=== PATIENT | female | born 1995 | race Caucasian/White ===

== ENCOUNTER → 2018-07-19 | Outpatient (CLI) | payer OTHER ==
[2018-07-19 19:46] LABS: T4, Free (Free Thyroxine) 1.1 ng/dL (0.80-1.80)
== END | disposition home or self-care (01) ==
LOC: LABWHC1 11:58
PROVIDERS: ATTEND Internal Medicine
DX: N92.0 Excessive and frequent menstruation with regular cycle (principal)
CPT/HCPCS: 36415; 82672; 82947; 83001; 83002; 84144; 84439; 84443; 84481

== ENCOUNTER → 2018-07-27 | Outpatient (CLI) | payer OTHER ==
--- NOTE | 2018-07-27 08:03 | US ---
EXAMINATION TYPE: US transvaginal DATE OF EXAM: 07/27/2018 COMPARISON: NONE CLINICAL HISTORY: N92.0 Heavy Periods. Patient stated has heavy menstrual cycles with long durations x 3 to 4 years. LMP unknown, but just ceased few days ago; TECHNIQUE: Transvaginal (TV) as bladder was not full and patient chose to have TV US for better asse ssment of endometrium. Date of LMP: unknown EXAM MEASUREMENTS: Uterus: 7.2 x 5.0 x 3.8 cm Endometrial Stripe: 0.9 cm Right Ovary: 4.0 x 2.1 x 2.1 cm Left Ovary: 1.7 x 1.9 x 2.8 cm 1. Uterus: Retroverted; multiple Nabothian Cysts in cervix with largest = 1.2 x 1.2 x 1.6cm 2. Endometrium: unable to correlate thickness with unknown LMP, however, swirling inner endometrial contents are observed during TV US 3. Right Ovary: multiple small follicles; color flow is seen in bilateral ovaries 4. Left Ovary: multiple small follicles 5. Bilateral Adnexa: wnl 6. Posterior cul-de-sac: wnl IMPRESSION: 1. Cervical nabothian cysts. 2. Small ovarian follicles.
== END | disposition home or self-care (01) ==
LOC: RADUSWWP 06:54
PROVIDERS: ATTEND Internal Medicine
DX: N88.8 Other specified noninflammatory disorders of cervix uteri (principal)
CPT/HCPCS: 76830

== ENCOUNTER → 2018-08-05 | Outpatient (CLI) | payer OTHER ==
--- NOTE | 2018-08-06 20:52 | MR ---
EXAMINATION TYPE: MR lumbar spine wo con DATE OF EXAM: 08/05/2018 COMPARISON: 12/11/2014 HISTORY: 23-year-old female Low back pain shooting into rajiv legs TECHNIQUE: Multiplanar, multisequence images of the lumbar spine were acquired. Findings: Interval development of degenerative disc disease at L5-S1 characterized by moderate disc desiccation and disc bulging with posterior annular fissure. Mild facet arthropathy lower lumbar spine. Vertebral body heights are preserved and alignment is maintained. Fatty matrix hemangioma within L2 vertebral body. No suspicious bone marrow placement. Conus medullaris is normal. No prevertebral or paravertebral soft tissue abnormality. From T12 through L4 levels, no spinal canal or foraminal stenosis. At L4-L5, mild facet degenerative change without spinal canal neuroforaminal stenosis. At L5-S1, new posterior broad-based disc protrusion with posterior annular fissure. There is mild fac et degenerative change. No significant spinal canal or foraminal stenosis. IMPRESSION: 1. New moderate degenerative disc disease at L5-S1 characterized by disc desiccation, broad-based pos terior disc protrusion, and posterior annular fissure. 2. Mild facet arthropathy lower lumbar spine. 3. Changes do not contribute to any significant spinal canal or neural foraminal stenosis.
== END | disposition home or self-care (01) ==
LOC: RADMRIMAIN 09:46
PROVIDERS: ATTEND Internal Medicine
DX: M99.73 Connective tissue and disc stenosis of intervertebral foramina of lumbar region (principal); M51.26 Other intervertebral disc displacement, lumbar region; M51.37 Other intervertebral disc degeneration, lumbosacral region; M46.96 Unspecified inflammatory spondylopathy, lumbar region
CPT/HCPCS: 72148

== ENCOUNTER → 2018-12-29 | Outpatient (CLI) | payer OTHER ==
[2018-12-29 23:44] LABS: Potassium 4.1 mmol/L (3.5-5.5)
[2018-12-30 00:12] LABS: Iron Saturation 5.14 (12.00-45.00)
== END | disposition home or self-care (01) ==
LOC: LABWHC1 16:28
PROVIDERS: ATTEND Dermatology
DX: L73.2 Hidradenitis suppurativa (principal); L70.8 Other acne
CPT/HCPCS: 36415; 82565; 82728; 83540; 83550; 84132; 84520

== ENCOUNTER → 2019-01-01 | Outpatient (CLI) | payer OTHER ==
[2019-01-01 21:14] LABS: Hemoglobin A1C 5.3 % (4.0-6.0)
== END ==
LOC: LABWHC1 12:38
PROVIDERS: ATTEND Dermatology Procedural Dermatology
DX: L83 Acanthosis nigricans (principal); L73.2 Hidradenitis suppurativa
CPT/HCPCS: 36415; 83036

== ENCOUNTER 2019-06-13 17:06 | Emergency (ER) | payer OTHER ==
[2019-06-13] MEDS ORDERED: KETOROLAC 30 MG/ML 1 ML VIAL IVP STA (18:15)
[2019-06-13] MEDS ORDERED: LORazepam 1 MG TAB PO STA (18:16)
--- NOTE | 2019-06-13 18:21 | XR ---
EXAMINATION TYPE: XR chest 2V DATE OF EXAM: 06/13/2019 COMPARISON: NONE HISTORY: Right-sided chest pain TECHNIQUE: Frontal and lateral views of the chest are obtained. FINDINGS: Heart and mediastinum are normal. Lungs are clear. Diaphragm is normal. Bony thorax appear s normal. IMPRESSION: Normal chest.
[2019-06-13 18:36] LABS: Anisocytosis Slight; Basophils # (A) 0.1 k/uL (0-0.2); Basophils % (A) 0 %; Eosinophils # (A) 0.1 k/uL (0-0.7); Eosinophils % (A) 1 %; Hypochromasia Slight; Lymphocytes # (A) 2.1 k/uL (1.0-4.8); Lymphocytes % (A) 18 %; MCH 21.7 pg (25.0-35.0); MCHC 30.8 g/dL (31.0-37.0); MCV 70.4 fL (80.0-100.0); Mean Platelet Volume 7.2; Microcytosis Marked; Monocytes # (A) 0.6 k/uL (0-1.0); Monocytes % (A) 5 %; Neutrophils # (A) 8.7 k/uL (1.3-7.7); Neutrophils % (A) 74 %; Platelet Count 326 k/uL (150-450); RBC 5.55 m/uL (3.80-5.40); RDW 16.8 % (11.5-15.5); WBC 11.8 k/uL (3.8-10.6)
[2019-06-13 18:45] LABS: ALT 23 U/L (9-52); AST 21 U/L (14-36); African American GFR (CKD) >90 (>60 ml/min/1.73 sqM); Albumin 5.2 g/dL (3.5-5.0); Alkaline Phosphatase 84 U/L (38-126); Anion Gap 13 mmol/L; Blood Urea Nitrogen 13 mg/dL (7-17); Calcium 10.6 mg/dL (8.4-10.2); Carbon Dioxide 23 mmol/L (22-30); Chloride 106 mmol/L (98-107); Glucose 81 mg/dL (74-99); Potassium 4.5 mmol/L (3.5-5.1); Sodium 142 mmol/L (137-145); Total Bilirubin 0.4 mg/dL (0.2-1.3); Total Protein 9.1 g/dL (6.3-8.2)
[2019-06-13 18:53] LABS: D-Dimer 0.44 mg/L FEU (<0.60); INR 0.9 (<1.2); Partial Thromboplastin Time 24.9 sec (22.0-30.0); Prothrombin Time 9.5 sec (9.0-12.0)
--- NOTE | 2019-06-13 19:05 | ED ---
SOB HPI - General Chief Complaint: Shortness of Breath Stated Complaint: ATIF Source: patient Mode of arrival: ambulatory Limitations: no limitations - History of Present Illness Initial Comments: 24-year-old female presenting for difficulty breathing. No significant past medical history. Patient states that she has had shortness of breath the past 4 days and pain with inspiration. She states the pain is all over however most constant over the left side of her chest. Describes as sharp in nature without radiation. Patient denies abdominal pain nausea vomiting. Admits to cough she states usually gets bronchitis around this time. Denies fever. Patient denies hemoptysis leg swelling history of DVT pulmonary embolism familial clotting disorders or personal history patient denies any unilateral calf pain recent travel recent surgeries recent fractures denies any exogenous hormone use. No history of sudden at a young age within family. No premature CAD with the family per patient. Patient denies any pain in absence of respiration. Denies any chest pressure arm pain. Patient denies . Remaining review of system negative. Upon arrival patient appears uncomfortable but in no distress. Vital signs stable. - Related Data Previous Rx's Medication Instructions Recorded Cephalexin [Keflex] 500 mg PO Q6HR #40 cap 01/22/19 Sulfamethox-Tmp 800-160Mg [Bactrim 1 each PO Q12HR #20 tab 01/22/19 Ds] Ibuprofen 800 mg PO Q8H PRN 7 Days #21 tablet 06/13/19 predniSONE 20 mg PO BID 5 Days #10 tab 06/13/19 Allergies Allergy/AdvReac Type Severity Reaction Status Date / Time No Known Allergies Allergy Verified 06/13/19 17:10 Review of Systems ROS Statement: Those systems with pertinent positive or pertinent negative responses have been documented in the HPI. ROS Other: All systems not noted in ROS Statement are negative. Past Medical History Past Medical History: No Reported History History of Any Multi-Drug Resistant Organisms: None Reported Past Surgical History: No Surgical Hx Reported Additional Past Surgical History / Comment(s): cyst removed from buttocks two ye ars ago Past Psychological History: Anxiety, Bipolar, Depression Smoking Status: Current every day smoker Past Alcohol Use History: None Reported Past Drug Use History: Marijuana General Exam - General Exam Comments Initial Comments: General: The patient is awake and alert, in no distress, and does not appear acutely ill. Eye: +3 mm pupils are equal, round and reactive to light, extra-ocular movements are intact. No nystagmus. There is normal conjunctiva bilaterally. No signs of icterus. No photophobia Ears, nose, mouth and throat: There are moist mucous membranes and no oral lesions. Oropharynx was not erythematous there is no tonsillar enlargement exudates or lesions. Uvula midline. o anterior cervical lymphadenopathy. Rhinorrhea, clear and bilateral nares. No tripoding, no drooling. Neck: The neck is supple, there is no tenderness or JVD. No nuchal rigidity Cardiovascular: There is a regular rate and rhythm. No murmur, rub or gallop is appreciated. Respiratory: Lungs are clear to auscultation, respirations are non-labored, breath sounds are equal. No wheezes, stridor, rales, or rhonchi. No retractions or abdominal breathing. No friction rub appreciated. Gastrointestinal: Soft, non-distended, non-tender abdomen without masses or organomegaly noted. There is no rebound or guarding present. Bowel sounds are unremarkable. Musculoskeletal: Normal ROM, no tenderness. Strength 5/5. Sensation intact. Radial pulses equal bilaterally 2+. Neurological: A&O x 3. CN II-XII intact grossly, There are no obvious motor or sensory deficits. Coordination appears grossly intact. Speech appears normal, no muffling. Skin: Skin is warm and dry and no rashes or lesions are noted. No extremity edema Psychiatric: Cooperative Limitations: no limitations Course Vital Signs 06/13/19 06/13/19 06/13/19 17:06 17:28 18:27 Temperature 98.5 F 97.8 F Pulse Rate 93 93 84 Respiratory 22 20 20 Rate Blood Pressure 139/67 140/90 133/92 O2 Sat by Pulse 100 98 99 Oximetry 06/13/19 06/13/19 19:11 19:59 Temperature 98 F Pulse Rate 88 81 Respiratory 20 18 Rate Blood Pressure 131/88 130/84 O2 Sat by Pulse 96 97 Oximetry Medical Decision Making - Medical Decision Making 24-year-old female presenting for pleuritic chest pain. SOB. Oxygenating well. Lungs clear. S1 Q3 T3 noted on EKG. No ST elevation depression. Troponin negative. Dimer within normal limits. No findings of extremities. Chest x-ray clear. Patient does have cough. However given EKG finding with pleuritic chest pain, CT angiography was obtained revealing no acute pulmonary embolism. At this time I feel most likely diagnosis is pleurisy. Patient be started on a steroid as well as an anti-inflammatory medication. The case was discussed with attending provider who is agreeable care plan discharge at this time. Patient is agreeable to this care plan preferring discharge return parameters were discu ssed and patient was discharged appearing well Ventricular rate 92 bpm, LA interval 132 ms, QRS yazidism 90 ms, QT/QTC 348/4:30 milliseconds. Normal sinus no ST elevation or depression S1 Q3 T3, is appreciated. - Lab Data Result diagrams: 06/13/19 17:45 06/13/19 17:45 Lab Results 06/13/19 06/13/19 06/13/19 Range/Units 17:45 17:45 17:45 WBC 11.8 H (3.8-10.6) k/uL RBC 5.55 H (3.80-5.40) m/uL Hgb 12.0 (11.4-16.0) gm/dL Hct 39.0 (34.0-46.0) % MCV 70.4 L (80.0-100.0) fL MCH 21.7 L (25.0-35.0) pg MCHC 30.8 L (31.0-37.0) g/dL RDW 16.8 H (11.5-15.5) % Plt Count 326 (150-450) k/uL Neutrophils % 74 % Lymphocytes % 18 % Monocytes % 5 % Eosinophils % 1 % Basophils % 0 % Neutrophils # 8.7 H (1.3-7.7) k/uL Lymphocytes # 2.1 (1.0-4.8) k/uL Monocytes # 0.6 (0-1.0) k/uL Eosinophils # 0.1 (0-0.7) k/uL Basophils # 0.1 (0-0.2) k/uL Hypochromasia Slight Anisocytosis Slight Microcytosis Marked PT 9.5 (9.0-12.0) sec INR 0.9 (<1.2) APTT 24.9 (22.0-30.0) sec D-Dimer 0.44 (<0.60) mg/L FEU Sodium 142 (137-145) mmol/L Potassium 4.5 (3.5-5.1) mmol/L Chloride 106 (98-107) mmol/L Carbon Dioxide 23 (22-30) mmol/L Anion Gap 13 mmol/L BUN 13 (7-17) mg/dL Creatinine 0.89 (0.52-1.04) mg/dL Est GFR (CKD-EPI)AfAm >90 (>60 ml/min/1.73 sqM) Est GFR (CKD-EPI)NonAf >90 (>60 ml/min/1.73 sqM) Glucose 81 (74-99) mg/dL Calcium 10.6 H (8.4-10.2) mg/dL Total Bilirubin 0.4 (0.2-1.3) mg/dL AST 21 (14-36) U/L ALT 23 (9-52) U/L Alkaline Phosphatase 84 (38-126) U/L Troponin I (0.000-0.034) ng/mL Total Protein 9.1 H (6.3-8.2) g/dL Albumin 5.2 H (3.5-5.0) g/dL Urine HCG, Qual (Not Detectd) 06/13/19 06/13/19 Range/Units 17:45 17:45 WBC (3.8-10.6) k/uL RBC (3.80-5.40) m/uL Hgb (11.4-16.0) gm/dL Hct (34.0-46.0) % MCV (80.0-100.0) fL MCH (25.0-35.0) pg MCHC (31.0-37.0) g/dL RDW (11.5-15.5) % Plt Count (150-450) k/uL Neutrophils % % Lymphocytes % % Monocytes % % Eosinophils % % Basophils % % Neutrophils # (1.3-7.7) k/uL Lymphocytes # (1.0-4.8) k/uL Monocytes # (0-1.0) k/uL Eosinophils # (0-0.7) k/uL Basophils # (0-0.2) k/uL Hypochromasia Anisocytosis Microcytosis PT (9.0-12.0) sec INR (<1.2) APTT (22.0-30.0) sec D-Dimer (<0.60) mg/L FEU Sodium (137-145) mmol/L Potassium (3.5-5.1) mmol/L Chloride (98-107) mmol/L Carbon Dioxide (22-30) mmol/L Anion Gap mmol/L BUN (7-17) mg/dL Creatinine (0.52-1.04) mg/dL Est GFR (CKD-EPI)AfAm (>60 ml/min/1.73 sqM) Est GFR (CKD-EPI)NonAf (>60 ml/min/1.73 sqM) Glucose (74-99) mg/dL Calcium (8.4-10.2) mg/dL Total Bilirubin (0.2-1.3) mg/dL AST (14-36) U/L ALT (9-52) U/L Alkaline Phosphatase (38-126) U/L Troponin I <0.012 (0.000-0.034) ng/mL Total Protein (6.3-8.2) g/dL Albumin (3.5-5.0) g/dL Urine HCG, Qual Not Detected (Not Detectd) Disposition Clinical Impression: Cough, Painful respiration, Pleurisy Disposition: HOME SELF-CARE Condition: Good Instructions (If sedation given, give patient instructions): Pleurisy (ED), Acute Bronchitis (ED) Additional Instructions: Please use medication as discussed. Please follow-up with family doctor in the next 2 days.. Please return to emergency room if the symptoms increase or worsen or for any other concerns. Prescriptions: Ibuprofen 800 mg PO Q8H PRN 7 Days #21 tablet PRN Reason: Pain predniSONE 20 mg PO BID 5 Days #10 tab Is patient prescribed a controlled substance at d/c from ED?: No Referrals: Kt Brooks MD [Primary Care Provider] - 1-2 days Time of Disposition: 20:25
[2019-06-13 20:00] VITALS: BP 130/84; PULSE 81; RESP 18; TEMP 98
--- NOTE | 2019-06-13 20:00 | CT ---
EXAMINATION TYPE: CT chest angio for PE DATE OF EXAM: 06/13/2019 COMPARISON: None HISTORY: chest pain, SOB CT DLP: 717.5 mGycm Automated exposure control for dose reduction was used. CONTRAST: CT Chest for pulmonary embolism performed with with IV Contrast, patient injected with 86cc mL of Iso jim 370. FINDINGS: There are 3-D post processed images. The lungs are clear of consolidation. There is no pleural effusion. There is no evidence of a pulmona ry mass. Heart size is normal. There is no pericardial effusion. There is no mediastinal adenopathy. Thoracic aorta appears normal. There is normal contrast opacification of the pulmonary arteries. There are no filling defects. The bony thorax appears intact. IMPRESSION: Negative CT angiogram of the chest. No evidence of pulmonary embolism.
== END 2019-06-13 20:49 | disposition home or self-care (01) ==
LOC: EC 17:06
DX: R09.1 Pleurisy (principal); R05 Cough; R07.1 Chest pain on breathing; F17.200 Nicotine dependence, unspecified, uncomplicated
CPT/HCPCS: 36415; 93005; 85379; 80053; 84484; 85025; 85610; 85730; 81025; 71046; 71275; 99285; 96374; J1885; Q9967

== ENCOUNTER 2020-04-10 17:03 | Emergency (ER) | payer OTHER ==
[2020-04-10 17:10] VITALS: TEMP 98
[2020-04-10 18:03] LABS: Basophils # (A) 0.1 k/uL (0-0.2); Basophils % (A) 0 %; Eosinophils # (A) 0.3 k/uL (0-0.7); Eosinophils % (A) 2 %; HCT 42.4 % (34.0-46.0); HGB 13.9 gm/dL (11.4-16.0); Lymphocytes # (A) 1.8 k/uL (1.0-4.8); Lymphocytes % (A) 12 %; MCH 25.9 pg (25.0-35.0); MCHC 32.6 g/dL (31.0-37.0); MCV 79.3 fL (80.0-100.0); Mean Platelet Volume 8.2; Monocytes # (A) 0.7 k/uL (0-1.0); Monocytes % (A) 4 %; Neutrophils % (A) 80 %; Platelet Count 269 k/uL (150-450); RBC 5.35 m/uL (3.80-5.40); RDW 14.6 % (11.5-15.5)
[2020-04-10 18:19] LABS: ALT 10 U/L (4-34); AST 24 U/L (14-36); African American GFR (CKD) >90 (>60 ml/min/1.73 sqM); Alkaline Phosphatase 87 U/L (38-126); Anion Gap 13 mmol/L; Blood Urea Nitrogen 10 mg/dL (7-17); Calcium 10.4 mg/dL (8.4-10.2); Carbon Dioxide 21 mmol/L (22-30); Chloride 107 mmol/L (98-107); Glucose 96 mg/dL (74-99); Non-African American GFR(CKD) >90 (>60 ml/min/1.73 sqM); Potassium 4.2 mmol/L (3.5-5.1); Sodium 141 mmol/L (137-145); Total Bilirubin 0.4 mg/dL (0.2-1.3); Total Protein 8.7 g/dL (6.3-8.2)
[2020-04-10] MEDS ORDERED: ACETAMINOPHEN TAB 325 MG TAB PO STA (18:29)
[2020-04-10] MEDS ORDERED: METOCLOPRAMIDE 5 MG/ML 2 ML VIAL IVP STA (18:29)
[2020-04-10 18:42] VITALS: BP 121/78; PULSE 88; RESP 16
[2020-04-10 18:43] LABS: Appearance,Urine Cloudy (Clear); Bilirubin,Urine Negative (Negative); Blood,Urine Negative (Negative); Calcium Oxalate Crystals,Urine Few /hpf; Color,Urine Yellow; Glucose,Urine (UA) Negative (Negative); Ketones,Urine Negative (Negative); Leukocyte Esterase,Urine Small (Negative); Mucus,Urine Many /hpf; Nitrite,Urine Negative (Negative); PH, Urine 6.5 (5.0-8.0); Protein,Urine Trace (Negative); RBC,Urine 2 /hpf (0-5); Specific Gravity,Urine 1.029 (1.001-1.035); Squamous Epithelial Cell,Urine 9 /hpf (0-4); WBC,Urine 1 /hpf (0-5)
--- NOTE | 2020-04-10 18:48 | ED ---
Abdominal Pain HPI - General Chief Complaint: Abdominal Pain Stated Complaint: Preg and abd pain Time Seen by Provider: 04/10/20 17:10 Source: patient Mode of arrival: ambulatory Limitations: no limitations - History of Present Illness Initial Comments: 25yo female presenting for cc of abdominal pain, pt presenting for cc of right sided abdominal pain, pt describes as pelvic region in nature. Patient states that for the past week she has had lower abdominal pain. She was also seen at PCP for this complaint who prescribed medications for UTI and recommended OB f/u. Patient LMP 03/03/20. Patient . Patient denies vaginal bleeding. Patient states that the pain is not near belly button or higher than the pelvic region. She admits to nausea, denies vomiting, or diarrhea. Patient denies fevers. Patient has no additional complaints. Upon arrival patient appears well nontoxic in no acute distress. - Related Data Previous Rx's Medication Instructions Recorded Cephalexin [Keflex] 500 mg PO Q6HR #40 cap 01/22/19 Sulfamethox-Tmp 800-160Mg [Bactrim 1 each PO Q12HR #20 tab 01/22/19 Ds] Ibuprofen 800 mg PO Q8H PRN 7 Days #21 tablet 06/13/19 predniSONE [Deltasone] 20 mg PO BID 5 Days #10 tab 06/13/19 Cephalexin [Keflex] 500 mg PO Q6HR 5 Days #20 cap 04/10/20 Allergies Allergy/AdvReac Type Severity Reaction Status Date / Time No Known Allergies Allergy Verified 04/10/20 17:10 Review of Systems ROS Statement: Those systems with pertinent positive or pertinent negative responses have been documented in the HPI. ROS Other: All systems not noted in ROS Statement are negative. Past Medical History Past Medical History: No Reported History History of Any Multi-Drug Resistant Organisms: None Reported Past Surgical History: No Surgical Hx Reported Additional Past Surgical History / Comment(s): cyst removed from buttocks two years ago Past Psychological History: Anxiety, Bipolar, Depression Smoking Status: Current every day smoker Past Alcohol Use History: None Reported Past Drug Use History: Marijuana General Exam - General Exam Comments Initial Comments: General: The patient is awake and alert, in no distress Eye: Pupils are equal, round and reactive to light, extra-ocular movements are intact. No nystagmus. There is normal conjunctiva bilaterally. No signs of icterus. Ears, nose, mouth and throat: There are moist mucous membranes and no oral lesions. Neck: The neck is supple, there is no tenderness or JVD. Cardiovascular: There is a regular rate and rhythm. No murmur, rub or gallop is appreciated. Respiratory: Lungs are clear to auscultation, respirations are non-labored, breath sounds are equal. No wheezes, stridor, rales, or rhonchi. Gastrointestinal: Soft, non-distended, mild appearing RL pelvic region pain to palpation, abdomen without masses or organomegaly noted. There is no rebound or guarding present. : No cervical motion or adnexal tenderness, thin white discharge, no odor or external lesions. no bleeding. Musculoskeletal: Normal ROM, no tenderness. Strength 5/5. Sensation intact. Radial pulses equal bilaterally 2+. Neurological: A&O x 3. CN II-XII intact, There are no obvious motor or sensory deficits. Coordination appears grossly intact. Speech is normal. Skin: Skin is warm and dry and no rashes or lesions are noted. Psychiatric: Cooperative, appropriate mood & affect, normal judgment. Limitations: no limitations Course Vital Signs 04/10/20 04/10/20 04/10/20 17:05 18:41 19:19 Temperature 98 F 98 F Pulse Rate 79 88 88 Respiratory 18 16 16 Rate Blood Pressure 124/79 121/78 121/78 O2 Sat by Pulse 99 97 97 Oximetry - Reevaluation(s) Reevaluation #1: pt states she thinks it is more so the nausea rather than pain will given zofran in addition to the reglan--pt appears pleased about IUP 04/10/20 18:56 Medical Decision Making - Medical Decision Making IUP on US-5w 5 days. UA some slight leukocyte esterase will treat--given patient's . Vaginal swabs pending. Patient HCG is elevated, single sac--no HR at this time. Recommend close f/u to ensure no molar or complications/threatened miscarriage. Patient verbalized understanding of importance of repeat US. Patient discharged appearing well. She states she would like to see her old OBGYN Dr. West and will call him tomorrow. Patient case discussed with attenidng pt discharged appearing well. Pain controlled on discharge. - Lab Data Result diagrams: 04/10/20 17:40 04/10/20 17:40 Lab Results 04/10/20 04/10/20 04/10/20 Range/Units 17:30 17:33 17:40 WBC 15.0 H (3.8-10.6) k/uL RBC 5.35 (3.80-5.40) m/uL Hgb 13.9 (11.4-16.0) gm/dL Hct 42.4 (34.0-46.0) % MCV 79.3 L (80.0-100.0) fL MCH 25.9 (25.0-35.0) pg MCHC 32.6 (31.0-37.0) g/dL RDW 14.6 (11.5-15.5) % Plt Count 269 (150-450) k/uL Neutrophils % 80 % Lymphocytes % 12 % Monocytes % 4 % Eosinophils % 2 % Basophils % 0 % Neutrophils # 12.0 H (1.3-7.7) k/uL Lymphocytes # 1.8 (1.0-4.8) k/uL Monocytes # 0.7 (0-1.0) k/uL Eosinophils # 0.3 (0-0.7) k/uL Basophils # 0.1 (0-0.2) k/uL Sodium (137-145) mmol/L Potassium (3.5-5.1) mmol/L Chloride (98-107) mmol/L Carbon Dioxide (22-30) mmol/L Anion Gap mmol/L BUN (7-17) mg/dL Creatinine (0.52-1.04) mg/dL Est GFR (CKD-EPI)AfAm (>60 ml/min/1.73 sqM) Est GFR (CKD-EPI)NonAf (>60 ml/min/1.73 sqM) Glucose (74-99) mg/dL Calcium (8.4-10.2) mg/dL Total Bilirubin (0.2-1.3) mg/dL AST (14-36) U/L ALT (4-34) U/L Alkaline Phosphatase (38-126) U/L Total Protein (6.3-8.2) g/dL Albumin (3.5-5.0) g/dL HCG, Quant mIU/mL Urine Color Yellow Urine Appearance Cloudy H (Clear) Urine pH 6.5 (5.0-8.0) Ur Specific [place] 1.029 (1.001-1.035) Urine Protein Trace H (Negative) Urine Glucose (UA) Negative (Negative) Urine Ketones Negative (Negative) Urine Blood Negative (Negative) Urine Nitrite Negative (Negative) Urine Bilirubin Negative (Negative) Urine Urobilinogen 2.0 (<2.0) mg/dL Ur Leukocyte Esterase Small H (Negative) Urine RBC 2 (0-5) /hpf Urine WBC 1 (0-5) /hpf Ur Squamous Epith Cells 9 H (0-4) /hpf Calcium Oxalate Crystal Few H (None) /hpf Urine Mucus Many H (None) /hpf Trichomonas Ag (Rapid) Negative (Negative) Blood Type Blood Type Recheck Bld Type Recheck Status 04/10/20 04/10/20 Range/Units 17:40 17:40 WBC (3.8-10.6) k/uL RBC (3.80-5.40) m/uL Hgb (11.4-16.0) gm/dL Hct (34.0-46.0) % MCV (80.0-100.0) fL MCH (25.0-35.0) pg MCHC (31.0-37.0) g/dL RDW (11.5-15.5) % Plt Count (150-450) k/uL Neutrophils % % Lymphocytes % % Monocytes % % Eosinophils % % Basophils % % Neutrophils # (1.3-7.7) k/uL Lymphocytes # (1.0-4.8) k/uL Monocytes # (0-1.0) k/uL Eosinophils # (0-0.7) k/uL Basophils # (0-0.2) k/uL Sodium 141 (137-145) mmol/L Potassium 4.2 (3.5-5.1) mmol/L Chloride 107 (98-107) mmol/L Carbon Dioxide 21 L (22-30) mmol/L Anion Gap 13 mmol/L BUN 10 (7-17) mg/dL Creatinine 0.80 (0.52-1.04) mg/dL Est GFR (CKD-EPI)AfAm >90 (>60 ml/min/1.73 sqM) Est GFR (CKD-EPI)NonAf >90 (>60 ml/min/1.73 sqM) Glucose 96 (74-99) mg/dL Calcium 10.4 H (8.4-10.2) mg/dL Total Bilirubin 0.4 (0.2-1.3) mg/dL AST 24 (14-36) U/L ALT 10 (4-34) U/L Alkaline Phosphatase 87 (38-126) U/L Total Protein 8.7 H (6.3-8.2) g/dL Albumin 5.0 (3.5-5.0) g/dL HCG, Quant 28056.9 mIU/mL Urine Color Urine Appearance (Clear) Urine pH (5.0-8.0) Ur Specific [place] (1.001-1.035) Urine Protein (Negative) Urine Glucose (UA) (Negative) Urine Ketones (Negative) Urine Blood (Negative) Urine Nitrite (Negative) Urine Bilirubin (Negative) Urine Urobilinogen (<2.0) mg/dL Ur Leukocyte Esterase (Negative) Urine RBC (0-5) /hpf Urine WBC (0-5) /hpf Ur Squamous Epith Cells (0-4) /hpf Calcium Oxalate Crystal (None) /hpf Urine Mucus (None) /hpf Trichomonas Ag (Rapid) (Negative) Blood Type A Positive Blood Type Recheck A Pos Bld Type Recheck Status No Disposition Clinical Impression: Nausea, Abdominal pain during Disposition: HOME SELF-CARE Condition: Good Instructions (If sedation given, give patient instructions): Abdominal Pain in (ED) Additional Instructions: Please use medication as discussed. Please follow-up with family doctor in the next 24 hours, recommend OBGYN follow-up in next week. Please return to emergency room if the symptoms increase or worsen or for any other concerns. Prescriptions: Cephalexin [Keflex] 500 mg PO Q6HR 5 Days #20 cap Is patient prescribed a controlled substance at d/c from ED?: No Referrals: Kt Brooks MD [Primary Care Provider] - 1-2 days Dylon West DO [Doctor of Osteopathic Medicine] - 1-2 days Time of Disposition: 19:07
--- NOTE | 2020-04-10 18:48 | US ---
EXAMINATION TYPE: Transabdominal OB US DATE OF EXAM: 04/10/2020 6:24 PM COMPARISON: NONE CLINICAL HISTORY: pain. RLQ x 1 week. Patient stated has constipation with this and with c onstipation has right lower pelvic pain; ; smoker. Patient denies vaginal bleeding. EXAM PERFORMED: Transabdominal (TA) EXAM MEASUREMENTS: GESTATIONAL AGE / DATING Physician Established: Not yet established Dates by LMP: (5 weeks/3 days) EDC: 12/08/2020 Dates by First Scan: No previous. Dates by Current Scan for: ( 5 weeks/4 days) EDC: 12/07/2020 MATERNAL ANATOMY Uterus: 8.5 x 6.1 x 4.0cm Right Ovary: 2.8 x 2.1 x 2.2cm Left Ovary: 4.5 x 1.9 x 1.7cm Post CDS / Adnexa: wnl Presence of free fluid: no Presence of corpus luteal cyst: not seen Presence of subchorionic bleed: no GESTATION / SURVEY MSD: 1.4cm (5 weeks/4 days) Yolk Sac (normal less than 6mm): 3.3mm IUP: Single gestational sac and yolk sac is seen in early Date of LMP: 03/03/2020 Beta HcG (if available): NA Bilateral Ovarian Venous and Arterial PW Doppler and color flow is documented in bilateral ovary. Single gestational sac and yolk sac is seen in early , 5 weeks/4 days) EDC: 12/07/2020. IMPRESSION: Gestational intrauterine sac size corresponds to of 5 weeks and 4 days gestation. Follow-up exam recommended in 14 days to confirm a living fetus.
[2020-04-10 19:02] LABS: HCG,Quantitative Serum 34998.9 mIU/mL
[2020-04-10] MEDS: ONDANSETRON 4 MG/2 ML VIAL IVP STA ×2 (19:14→19:17)
[2020-04-12 09:41] LABS: C. trachomatis,PCR Negative (Neg,Equiv); Chlamydia trachomatis Source Vagina; N. gonorrhoeae,PCR Negative (Neg,Equiv); Neisseria Source Vagina
== END 2020-04-10 19:20 | disposition home or self-care (01) ==
LOC: EC 17:03
DX: O26.891 Other specified pregnancy related conditions, first trimester (principal); R11.0 Nausea; R10.9 Unspecified abdominal pain; O99.331 Smoking (tobacco) complicating pregnancy, first trimester; F17.200 Nicotine dependence, unspecified, uncomplicated; Z3A.01 Less than 8 weeks gestation of pregnancy
CPT/HCPCS: 36415; 86900; 86901; 80053; 85025; 81001; 84702; 87808; 87491; 87591; 87070; 76801; 99284; 96374; 96375; J2765; J2405

== ENCOUNTER 2020-04-16 11:25 | Emergency (ER) | payer OTHER ==
[2020-04-16 11:45] VITALS: TEMP 97.8
--- NOTE | 2020-04-16 11:54 | ED ---
Nausea/Vomiting/Diarrhea HPI - General Source: patient Mode of arrival: EMS Limitations: no limitations <Ashley Clemons - Last Filed: 04/16/20 13:54> <Huma Paulino - Last Filed: 04/16/20 21:28> - General Chief complaint: Nausea/Vomiting/Diarrhea Stated complaint: abd pain Time Seen by Provider: 04/16/20 11:30 - History of Present Illness Initial comments: 25-year-old female who believes she is 6 weeks presenting today for chief complaint of nausea vomiting, constipation and abdominal pain and pregna ncy. Patient states she has been constant for the past week. She states she is unable to have a normal bowel movement. Denies vaginal bleeding. Patient states she is all over the abdomen pain she states that it is mostly of the upper abdomen and associated nausea. Patient's itching ultrasound yesterday of the [facility] revealing a normal gallbladder. Patient states that she has not been ill keep anything down she feels weak. Patient states she has not established REGISTERED NURSE MATERNITY care yet has seen Dr. West in the past. Patient denies specific RLQ tenderness. Denies fevers Denies urinary symptoms. Admits to some scant discharge, STI testing 1 week ago negative. (Ashley Clemons) - Related Data Home Medications Medication Instructions Recorded Confirmed Ondansetron Odt [Zofran Odt] 4 mg PO Q8H PRN 04/16/20 04/16/20 Penicillin V Potassium [Pen Vee K] 500 mg PO Q8H 04/16/20 04/16/20 Trinatal Rx 60-1 Mg 1 tab PO DAILY 04/16/20 04/16/20 Previous Rx's Medication Instructions Recorded Ibuprofen 800 mg PO Q8H PRN 7 Days #21 tablet 06/13/19 Cephalexin [Keflex] 500 mg PO Q6HR 5 Days #20 cap 04/10/20 Allergies Allergy/AdvReac Type Severity Reaction Status Date / Time No Known Allergies Allergy Verified 04/16/20 11:59 Review of Systems ROS Other: All systems not noted in ROS Statement are negative. <Ashley Clemons - Last Filed: 04/16/20 13:54> ROS Other: All systems not noted in ROS Statement are negative. <Huma Paulino - Last Filed: 04/16/20 21:28> ROS Statement: Those systems with pertinent positive or pertinent negative responses have been documented in the HPI. Past Medical History Past Medical History: No Reported History History of Any Multi-Drug Resistant Organisms: None Reported Past Surgical History: No Surgical Hx Reported Additional Past Surgical History / Comment(s): cyst removed from buttocks two years ago Past Psychological History: Anxiety, Bipolar, Depression Smoking Status: Current every day smoker Past Alcohol Use History: None Reported Past Drug Use History: Marijuana <Ashley Clemons Sigrid - Last Filed: 04/16/20 13:54> General Exam Limitations: no limitations <Ashley Clemons Sigrid - Last Filed: 04/16/20 13:54> - General Exam Comments Initial Comments: General: The patient is awake and alert, crying and dry heaving Eye: +3 mm pupils are equal, round and reactive to light, extra-ocular movements are intact. No nystagmus. There is normal conjunctiva bilaterally. No signs of icterus. Ears, nose, mouth and throat: There are moist mucous membranes and no oral lesions. Neck: The neck is supple, there is no tenderness or JVD. Cardiovascular: There is a regular rate and rhythm. No murmur, rub or gallop is appreciated. Respiratory: Lungs are clear to auscultation, respirations are non-labored, breath sounds are equal. No wheezes, stridor, rales, or rhonchi. Gastrointestinal: Soft, non-distended, diffuse upper and mid abdominal pain, appears mild. abdomen without masses or organomegaly noted. Musculoskeletal: Normal ROM, no tenderness. Strength 5/5. Sensation intact. Radial pulses equal bilaterally 2+. Neurological: A&O x 3. CN II-XII intact grossly, There are no obvious motor or sensory deficits. Coordination appears grossly intact. Speech is normal. Skin: Skin is warm and dry and no rashes or lesions are noted. Psychiatric: Cooperative, appropriate mood & affect, normal judgment. (Sun Clemonsabbey Matta) Course <Sun Clemonsabbey Matta - Last Filed: 04/16/20 13:54> Vital Signs 04/16/20 04/16/20 04/16/20 11:40 12:58 14:20 Temperature 97.8 F Pulse Rate 58 L 59 L 62 Respiratory 20 20 18 Rate Blood Pressure 149/99 135/78 142/95 O2 Sat by Pulse 100 99 100 Oximetry - Reevaluation(s) Reevaluation #1: pt demanded xr i discussed including risk of compromising , defect, increased risk of cancer in baby patient verbalized understanding of these risks and continues to want xr to see "how much poop" is in there. KUB obtained to r/o obstruction. 04/16/20 13:12 (Ashley Clemons) Medical Decision Making - Lab Data Result diagrams: 04/16/20 11:58 04/16/20 11:58 <Ashley Clemons - Last Filed: 04/16/20 13:54> - Lab Data Result diagrams: 04/16/20 11:58 04/16/20 11:58 <Huma Paulino - Last Filed: 04/16/20 21:28> - Medical Decision Making The patient was signed out to me from [place]. I did review her labs. I dilated the patient she continues to complain of right upper quadrant pain. She is persistently having pain, nausea and vomiting with 4+ ketones did recommend hospital admission. Patient refused stating that she does want to go home. The risks are discussed with the patient in regards to her mental disability and . These are risks to her as well as her unborn baby. Boyfriend is at bedside and attempts to persuade the patient is staying however she is adamant that she wants to go home. Patient will be discharged AGAINST MEDICAL ADVICE. She no one accepts these risks. She is of sound mind to make these decisions. We asked that if she continues to receive any care that she return to the emergency department. Patient was then discharged AGAINST MEDICAL ADVICE (Huma Paulino) - Lab Data Lab Results 04/16/20 04/16/20 04/16/20 Range/Units 11:58 11:58 11:58 WBC 19.0 H (3.8-10.6) k/uL RBC 5.40 (3.80-5.40) m/uL Hgb 14.1 (11.4-16.0) gm/dL Hct 42.7 (34.0-46.0) % MCV 79.2 L (80.0-100.0) fL MCH 26.2 (25.0-35.0) pg MCHC 33.1 (31.0-37.0) g/dL RDW 14.8 (11.5-15.5) % Plt Count 280 (150-450) k/uL Neutrophils % 85 % Lymphocytes % 8 % Monocytes % 5 % Eosinophils % 1 % Basophils % 0 % Neutrophils # 16.2 H (1.3-7.7) k/uL Lymphocytes # 1.6 (1.0-4.8) k/uL Monocytes # 0.9 (0-1.0) k/uL Eosinophils # 0.2 (0-0.7) k/uL Basophils # 0.0 (0-0.2) k/uL Sodium 138 (137-145) mmol/L Potassium 3.3 L (3.5-5.1) mmol/L Chloride 106 (98-107) mmol/L Carbon Dioxide 18 L (22-30) mmol/L Anion Gap 14 mmol/L BUN 11 (7-17) mg/dL Creatinine 0.91 (0.52-1.04) mg/dL Est GFR (CKD-EPI)AfAm >90 (>60 ml/min/1.73 sqM) Est GFR (CKD-EPI)NonAf 89 (>60 ml/min/1.73 sqM) Glucose 110 H (74-99) mg/dL Calcium 10.0 (8.4-10.2) mg/dL Total Bilirubin 0.9 (0.2-1.3) mg/dL AST 19 (14-36) U/L ALT 11 (4-34) U/L Alkaline Phosphatase 93 (38-126) U/L Total Protein 8.2 (6.3-8.2) g/dL Albumin 4.8 (3.5-5.0) g/dL HCG, Quant mIU/mL Urine Color Urine Appearance (Clear) Urine pH (5.0-8.0) Ur Specific [place] (1.001-1.035) Urine Protein (Negative) Urine Glucose (UA) (Negative) Urine Ketones (Negative) Urine Blood (Negative) Urine Nitrite (Negative) Urine Bilirubin (Negative) Urine Urobilinogen (<2.0) mg/dL Ur Leukocyte Esterase (Negative) Urine RBC (0-5) /hpf Urine WBC (0-5) /hpf Ur Squamous Epith Cells (0-4) /hpf Urine Bacteria (None) /hpf Hyaline Casts (0-2) /lpf Urine Mucus (None) /hpf Urine HCG, Qual Detected (Not Detectd) 04/16/20 04/16/20 Range/Units 11:58 11:58 WBC (3.8-10.6) k/uL RBC (3.80-5.40) m/uL Hgb (11.4-16.0) gm/dL Hct (34.0-46.0) % MCV (80.0-100.0) fL MCH (25.0-35.0) pg MCHC (31.0-37.0) g/dL RDW (11.5-15.5) % Plt Count (150-450) k/uL Neutrophils % % Lymphocytes % % Monocytes % % Eosinophils % % Basophils % % Neutrophils # (1.3-7.7) k/uL Lymphocytes # (1.0-4.8) k/uL Monocytes # (0-1.0) k/uL Eosinophils # (0-0.7) k/uL Basophils # (0-0.2) k/uL Sodium (137-145) mmol/L Potassium (3.5-5.1) mmol/L Chloride (98-107) mmol/L Carbon Dioxide (22-30) mmol/L Anion Gap mmol/L BUN (7-17) mg/dL Creatinine (0.52-1.04) mg/dL Est GFR (CKD-EPI)AfAm (>60 ml/min/1.73 sqM) Est GFR (CKD-EPI)NonAf (>60 ml/min/1.73 sqM) Glucose (74-99) mg/dL Calcium (8.4-10.2) mg/dL Total Bilirubin (0.2-1.3) mg/dL AST (14-36) U/L ALT (4-34) U/L Alkaline Phosphatase (38-126) U/L Total Protein (6.3-8.2) g/dL Albumin (3.5-5.0) g/dL HCG, Quant 16665.4 mIU/mL Urine Color Yellow Urine Appearance Cloudy H (Clear) Urine pH 7.0 (5.0-8.0) Ur Specific [place] 1.028 (1.001-1.035) Urine Protein 1+ H (Negative) Urine Glucose (UA) Negative (Negative) Urine Ketones 4+ H (Negative) Urine Blood Negative (Negative) Urine Nitrite Negative (Negative) Urine Bilirubin Negative (Negative) Urine Urobilinogen <2.0 (<2.0) mg/dL Ur Leukocyte Esterase Trace H (Negative) Urine RBC 1 (0-5) /hpf Urine WBC 2 (0-5) /hpf Ur Squamous Epith Cells 8 H (0-4) /hpf Urine Bacteria Rare H (None) /hpf Hyaline Casts 1 (0-2) /lpf Urine Mucus Few H (None) /hpf Urine HCG, Qual (Not Detectd) Disposition <Ashley Clemons - Last Filed: 04/16/20 13:54> Is patient prescribed a controlled substance at d/c from ED?: No Time of Disposition: 14:40 <Huma Paulino - Last Filed: 04/16/20 21:28> Clinical Impression: Dehydration, Abdominal pain during , Nausea, Ketonuria Disposition: Left Against Medical Advice Condition: Stable Instructions (If sedation given, give patient instructions): Acute Nausea and Vomiting (ED), Abdominal Pain in (ED) Additional Instructions: I recommended hospital admission. You need to follow-up with your REGISTERED NURSE MATERNITY as soon as possible. I also recommended follow-up with GI. Please return to the hospital should you want to receive care Referrals: Kt Brooks MD [Primary Care Provider] - 1-2 days
[2020-04-16] MEDS ORDERED: SODIUM CHLORIDE 0.9% 1,000 ML IV SCH (12:00)
[2020-04-16 12:15] LABS: Basophils % (A) 0 %; Eosinophils # (A) 0.2 k/uL (0-0.7); Eosinophils % (A) 1 %; HCT 42.7 % (34.0-46.0); HGB 14.1 gm/dL (11.4-16.0); Lymphocytes # (A) 1.6 k/uL (1.0-4.8); Lymphocytes % (A) 8 %; MCH 26.2 pg (25.0-35.0); MCHC 33.1 g/dL (31.0-37.0); MCV 79.2 fL (80.0-100.0); Monocytes # (A) 0.9 k/uL (0-1.0); Monocytes % (A) 5 %; Neutrophils # (A) 16.2 k/uL (1.3-7.7); Neutrophils % (A) 85 %; Platelet Count 280 k/uL (150-450); RDW 14.8 % (11.5-15.5)
[2020-04-16] MEDS ORDERED: ONDANSETRON 4 MG/2 ML VIAL IVP STA (12:15)
[2020-04-16 12:19] LABS: Color,Urine Yellow
[2020-04-16 12:20] LABS: Appearance,Urine Cloudy (Clear); Bacteria,Urine Rare /hpf; Bilirubin,Urine Negative (Negative); Blood,Urine Negative (Negative); Glucose,Urine (UA) Negative (Negative); Hyaline Casts,Urine 1 /lpf (0-2); Ketones,Urine 4+ (Negative); Leukocyte Esterase,Urine Trace (Negative); Mucus,Urine Few /hpf; Nitrite,Urine Negative (Negative); Protein,Urine 1+ (Negative); RBC,Urine 1 /hpf (0-5); Specific Gravity,Urine 1.028 (1.001-1.035); Squamous Epithelial Cell,Urine 8 /hpf (0-4); Urobilinogen,Urine <2.0 mg/dL (<2.0); WBC,Urine 2 /hpf (0-5)
[2020-04-16 12:27] LABS: ALT 11 U/L (4-34); AST 19 U/L (14-36); African American GFR (CKD) >90 (>60 ml/min/1.73 sqM); Albumin 4.8 g/dL (3.5-5.0); Alkaline Phosphatase 93 U/L (38-126); Anion Gap 14 mmol/L; Blood Urea Nitrogen 11 mg/dL (7-17); Carbon Dioxide 18 mmol/L (22-30); Chloride 106 mmol/L (98-107); Glucose 110 mg/dL (74-99); Non-African American GFR(CKD) 89 (>60 ml/min/1.73 sqM); Potassium 3.3 mmol/L (3.5-5.1); Sodium 138 mmol/L (137-145); Total Bilirubin 0.9 mg/dL (0.2-1.3); Total Protein 8.2 g/dL (6.3-8.2)
--- NOTE | 2020-04-16 13:24 | XR ---
EXAMINATION TYPE: XR KUB DATE OF EXAM: 04/16/2020 1:20 PM CLINICAL HISTORY: Lower abdominal pain and fever TECHNIQUE: Two Upright KUB images of the abdomen are obtained. COMPARISON: None. FINDINGS: Gas is seen in nondistended stomach bubble. Some paucity of small bowel gas. Gas is seen in nondistended colon along the periphery. There is no visceromegaly, pneumoperitoneum, or abnormal twyla cification appreciated. The lung bases are clear and the osseous structures are intact. IMPRESSION: Overall nonobstructive bowel gas pattern.
[2020-04-16] MEDS ORDERED: METOCLOPRAMIDE 5 MG/ML 2 ML VIAL IVP STA (13:38)
[2020-04-16] MEDS ORDERED: ACETAMINOPHEN TAB 325 MG TAB PO STA (13:38)
[2020-04-16] MEDS ORDERED: diphenhydrAMINE 50 MG/ML 1 ML VIAL IVP STA (13:46)
--- NOTE | 2020-04-16 14:11 | US ---
EXAMINATION TYPE: US abdomen APPY DATE OF EXAM: 04/16/2020 COMPARISON: NONE CLINICAL HISTORY: lower abdominal pain. Pt states lower ABD pain APPENDIX AP Diameter (normal < 6mm): 3 mm Measured outer wall to outer wall. Is the appendix seen in its entirety from the proximal cecum to distal end: Yes Does the appendix wall appear hypervascular: No Is an appendicolith present: No Is there inflammatory changes or free fluid present: No IMPRESSION: 1. The appendix as visualized is unremarkable. 2. Clinical management of any suspected appendicitis be required.
--- NOTE | 2020-04-16 14:12 | US ---
EXAMINATION TYPE: Transabdominal DATE OF EXAM: 04/16/2020 1:52 PM COMPARISON: US CLINICAL HISTORY: pain, vomiting. Pt states lower ABD pain, denies vaginal bleeding EXAM PERFORMED: Transabdominal (TA) EXAM MEASUREMENTS: GESTATIONAL AGE / DATING Physician Established: Not yet established Dates by LMP: (6 weeks/2 days) EDC: 12/08/2020 Dates by First Scan: (6 weeks/3 days) EDC: 12/07/2020 Dates by Current Scan for: (6 weeks/1 days) EDC: 12/09/2020 MATERNAL ANATOMY Uterus: 8.5 x 4.9 x 5.8 cm Right Ovary: 2.9 x 2.3 x 2.9 cm Left Ovary: 3.4 x 1.9 x 2.0 cm Post CDS / Adnexa: wnl Presence of free fluid: No Presence of corpus luteal cyst: Right Ovary= 2.1 x 1.9 x 1.7 cm Presence of subchorionic bleed: No GESTATION / SURVEY CRL: 0.5 cm (6 weeks/1 days) MSD: wnl Yolk Sac (normal less than 6mm): 3mm Heart Rate: 131 bpm Rhythm: Normal IUP: Viable IUP Date of LMP: 03/03/2020 Beta HcG (if available): Not available at this time Single, viable IUP/ No abnormality visualized at this time IMPRESSION: Single image gestation estimated at 6 weeks 1 day gestation based on crown-rump length. Cardiac activ ity measures 131 bpm was observed during the study.
[2020-04-16 14:21] VITALS: BP 142/95; PULSE 62; RESP 18
== END 2020-04-16 15:20 | disposition left against medical advice (07) ==
LOC: EC 11:25
DX: O26.891 Other specified pregnancy related conditions, first trimester (principal); R10.11 Right upper quadrant pain; O26.831 Pregnancy related renal disease, first trimester; R82.4 Acetonuria; O99.281 Endocrine, nutritional and metabolic diseases complicating pregnancy, first trimester; E86.0 Dehydration; O99.89 Other specified diseases and conditions complicating pregnancy, childbirth and the puerperium; R11.0 Nausea; O99.331 Smoking (tobacco) complicating pregnancy, first trimester; F17.200 Nicotine dependence, unspecified, uncomplicated; Z3A.01 Less than 8 weeks gestation of pregnancy; Z53.29 Procedure and treatment not carried out because of patient's decision for other reasons
CPT/HCPCS: 36415; 80053; 85025; 81001; 81025; 84702; 74018; 76705; 76801; 99284; 96374; 96375 ×2; 96361 ×3; J1200; J2765; J2405

== ENCOUNTER 2020-04-21 07:14 | Emergency (ER) | payer OTHER ==
[2020-04-21] MEDS ORDERED: diphenhydrAMINE 50 MG/ML 1 ML VIAL IVP STA (07:26)
[2020-04-21] MEDS ORDERED: SODIUM CHLORIDE 0.9% 2,000 ML IV STA (07:26)
[2020-04-21] MEDS ORDERED: METOCLOPRAMIDE 5 MG/ML 2 ML VIAL IVP STA (07:26)
[2020-04-21] MEDS ORDERED: MAG HYDROX/AL HYDROX/SIMETH 30 ML CUP PO STA (07:27)
[2020-04-21] MEDS ORDERED: PYRIDOXINE 100 MG/ML 1 ML VIAL IVP STA (07:37)
--- NOTE | 2020-04-21 07:37 | ED ---
Abdominal Pain HPI - General Chief Complaint: Abdominal Pain Stated Complaint: Vomiting, 6wks preg Time Seen by Provider: 04/21/20 07:19 Source: patient, RN notes reviewed Mode of arrival: ambulatory Limitations: no limitations - History of Present Illness Initial Comments: 24-year-old female presents emergency Department chief complaint of nausea vomiting early . Patient states she seen her pressure 4-5 days ago for similar complaints. Patient and outpatient ultrasound for possible gallbladder issues she's had epigastric pain. Ultrasound was unremarkable. Patient did have ultrasound which revealed normal cardiac activity, measuring 6 weeks 1 day. Patient denies any vaginal bleeding or vaginal discharge it's time. She has no lower abdominal pain. Patient is A0. Patient states that she did call Dr. Holden's office is waiting for an appointment. Patient was recommends in-hospital from her last visit but states that she wanted to go home. Patient signed out AGAINST MEDICAL ADVICE. Patient states that she's been constipated. She did admit that she is able to eat and drink last couple days but symptoms worsen again today. - Related Data Home Medications Medication Instructions Recorded Confirmed Ondansetron Odt [Zofran Odt] 4 mg PO Q8H PRN 04/16/20 04/16/20 Penicillin V Potassium [Pen Vee K] 500 mg PO Q8H 04/16/20 04/16/20 Trinatal Rx 60-1 Mg 1 tab PO DAILY 04/16/20 04/16/20 Previous Rx's Medication Instructions Recorded Ibuprofen 800 mg PO Q8H PRN 7 Days #21 tablet 06/13/19 Cephalexin [Keflex] 500 mg PO Q6HR 5 Days #20 cap 04/10/20 Metoclopramide [Reglan] 10 mg PO TID PRN #15 tab 04/21/20 Allergies Allergy/AdvReac Type Severity Reaction Status Date / Time No Known Allergies Allergy Verified 04/21/20 07:15 Review of Systems ROS Statement: Those systems with pertinent positive or pertinent negative responses have been documented in the HPI. ROS Other: All systems not noted in ROS Statement are negative. Past Medical History Past Medical History: No Reported History History of Any Multi-Drug Resistant Organisms: None Reported Past Surgical History: No Surgical Hx Reported Additional Past Surgical History / Comment(s): cyst removed from buttocks two years ago Past Psychological History: Anxiety, Bipolar, Depression Smoking Status: Current every day smoker Past Alcohol Use History: None Reported Past Drug Use History: Marijuana General Exam Limitations: no limitations General appearance: alert, in no apparent distress Head exam: Present: atraumatic, normocephalic, normal inspection Eye exam: Present: normal appearance, PERRL, EOMI. Absent: scleral icterus, conjunctival injection, periorbital swelling ENT exam: Present: normal exam, normal oropharynx, mucous membranes moist, TM's normal bilaterally Neck exam: Present: normal inspection, full ROM. Absent: tenderness, meningismus, lymphadenopathy Respiratory exam: Present: normal lung sounds bilaterally. Absent: respiratory distress, wheezes, rales, rhonchi, stridor Cardiovascular Exam: Present: regular rate, normal rhythm, normal heart sounds. Absent: systolic murmur, diastolic murmur, rubs, gallop, clicks GI/Abdominal exam: Present: soft, tenderness (Mild epigastric), normal bowel sounds. Absent: distended, guarding, rebound, rigid Skin exam: Present: warm, dry, intact, normal color. Absent: rash Course Vital Signs 04/21/20 04/21/20 07:15 08:51 Temperature 98.0 F 98.3 F Pulse Rate 78 65 Respiratory 16 17 Rate Blood Pressure 154/92 O2 Sat by Pulse 100 99 Oximetry Medical Decision Making - Medical Decision Making 25-year-old female presented emergency from for nausea vomiting . Patient did have some spotting which is a positive blood type. Patient also shows a gestational bleeding, heart rate of 132. Patient has no abdominal pain lower aspect. Patient was hydrated, given antiemetics. Patient recommended to be admitted to the hospital secondary to dehydration and hyperemesis him. Patient refuses to be admitted. She states that she rather go home with medications. She understands risk of leaving at harm to herself baby. Patient states she will follow-up with [facility] return for any worsening changes symptoms. I did inform her that she has an elevation her white count was likely reactive though there is concern for possible infection this is another reason she should be admitted. She can acknowledges and understands that she is leaving AGAINST MEDICAL ADVICE. Patient significant other in the room understands and agrees. - Lab Data Result diagrams: 04/21/20 07:32 04/21/20 07:32 Lab Results 04/21/20 04/21/20 04/21/20 Range/Units 07:32 07:32 07:32 WBC 27.6 H (3.8-10.6) k/uL RBC 5.66 H (3.80-5.40) m/uL Hgb 14.8 (11.4-16.0) gm/dL Hct 44.6 (34.0-46.0) % MCV 78.7 L (80.0-100.0) fL MCH 26.2 (25.0-35.0) pg MCHC 33.2 (31.0-37.0) g/dL RDW 14.4 (11.5-15.5) % Plt Count 242 (150-450) k/uL Neutrophils % 92 % Lymphocytes % 5 % Monocytes % 2 % Eosinophils % 1 % Basophils % 0 % Neutrophils # 25.4 H (1.3-7.7) k/uL Lymphocytes # 1.2 (1.0-4.8) k/uL Monocytes # 0.6 (0-1.0) k/uL Eosinophils # 0.2 (0-0.7) k/uL Basophils # 0.0 (0-0.2) k/uL Manual Slide Review Performed Sodium 137 (137-145) mmol/L Potassium 3.6 (3.5-5.1) mmol/L Chloride 102 (98-107) mmol/L Carbon Dioxide 21 L (22-30) mmol/L Anion Gap 14 mmol/L BUN 12 (7-17) mg/dL Creatinine 0.79 (0.52-1.04) mg/dL Est GFR (CKD-EPI)AfAm >90 (>60 ml/min/1.73 sqM) Est GFR (CKD-EPI)NonAf >90 (>60 ml/min/1.73 sqM) Glucose 107 H (74-99) mg/dL Calcium 10.0 (8.4-10.2) mg/dL Total Bilirubin 0.7 (0.2-1.3) mg/dL AST 25 (14-36) U/L ALT 16 (4-34) U/L Alkaline Phosphatase 90 (38-126) U/L Total Protein 8.2 (6.3-8.2) g/dL Albumin 4.9 (3.5-5.0) g/dL Lipase 144 (23-300) U/L Urine Color Yellow Urine Appearance Turbid H (Clear) Urine pH 8.5 H (5.0-8.0) Ur Specific [place] 1.031 (1.001-1.035) Urine Protein 1+ H (Negative) Urine Glucose (UA) Negative (Negative) Urine Ketones 4+ H (Negative) Urine Blood Negative (Negative) Urine Nitrite Negative (Negative) Urine Bilirubin Negative (Negative) Urine Urobilinogen 2.0 (<2.0) mg/dL Ur Leukocyte Esterase Large H (Negative) Urine RBC <1 (0-5) /hpf Urine WBC 5 (0-5) /hpf Ur Squamous Epith Cells 5 H (0-4) /hpf Amorphous Sediment Rare H (None) /hpf Urine Bacteria Occasional H (None) /hpf Urine Mucus Many H (None) /hpf Disposition Clinical Impression: Dehydration, Nausea/vomiting in , Abdominal pain Disposition: HOME SELF-CARE Condition: Stable Instructions (If sedation given, give patient instructions): Abdominal Pain in (ED) Additional Instructions: Take [id number] B6 vitamin as directed. Please return to the Emergency Department if symptoms worsen or any other concerns. Prescriptions: Metoclopramide [Reglan] 10 mg PO TID PRN #15 tab PRN Reason: GERD Is patient prescribed a controlled substance at d/c from ED?: No Referrals: Kt Brooks MD [Primary Care Provider] - 1-2 days Dylon West DO [Doctor of Osteopathic Medicine] - 1-2 days Time of Disposition: 09:11
[2020-04-21 07:44] LABS: Basophils % (A) 0 %; Eosinophils # (A) 0.2 k/uL (0-0.7); Eosinophils % (A) 1 %; HCT 44.6 % (34.0-46.0); HGB 14.8 gm/dL (11.4-16.0); Lymphocytes # (A) 1.2 k/uL (1.0-4.8); Lymphocytes % (A) 5 %; MCH 26.2 pg (25.0-35.0); MCHC 33.2 g/dL (31.0-37.0); MCV 78.7 fL (80.0-100.0); Mean Platelet Volume 8.7; Monocytes # (A) 0.6 k/uL (0-1.0); Monocytes % (A) 2 %; Neutrophils # (A) 25.4 k/uL (1.3-7.7); Neutrophils % (A) 92 %; Platelet Count 242 k/uL (150-450); RBC 5.66 m/uL (3.80-5.40); RDW 14.4 % (11.5-15.5); WBC 27.6 k/uL (3.8-10.6)
[2020-04-21 07:58] LABS: ALT 16 U/L (4-34); AST 25 U/L (14-36); African American GFR (CKD) >90 (>60 ml/min/1.73 sqM); Albumin 4.9 g/dL (3.5-5.0); Alkaline Phosphatase 90 U/L (38-126); Anion Gap 14 mmol/L; Blood Urea Nitrogen 12 mg/dL (7-17); Carbon Dioxide 21 mmol/L (22-30); Chloride 102 mmol/L (98-107); Glucose 107 mg/dL (74-99); Non-African American GFR(CKD) >90 (>60 ml/min/1.73 sqM); Potassium 3.6 mmol/L (3.5-5.1); Sodium 137 mmol/L (137-145); Total Bilirubin 0.7 mg/dL (0.2-1.3); Total Protein 8.2 g/dL (6.3-8.2)
[2020-04-21 08:10] LABS: Amorphous Sediment,Urine Rare /hpf; Appearance,Urine Turbid (Clear); Bacteria,Urine Occasional /hpf; Bilirubin,Urine Negative (Negative); Blood,Urine Negative (Negative); Color,Urine Yellow; Glucose,Urine (UA) Negative (Negative); Ketones,Urine 4+ (Negative); Leukocyte Esterase,Urine Large (Negative); Mucus,Urine Many /hpf; Nitrite,Urine Negative (Negative); PH, Urine 8.5 (5.0-8.0); Protein,Urine 1+ (Negative); RBC,Urine <1 /hpf (0-5); Specific Gravity,Urine 1.031 (1.001-1.035); Squamous Epithelial Cell,Urine 5 /hpf (0-4); WBC,Urine 5 /hpf (0-5)
--- NOTE | 2020-04-21 08:37 | US ---
EXAMINATION TYPE: US OB limited DATE OF EXAM: 04/21/2020 COMPARISON: NONE CLINICAL HISTORY: 25-year-old female heart tone confirmation. Bleeding, only assess for heart t ones EXAM PERFORMED: OBTA FINDINGS: GESTATIONAL AGE / DATING Physician Established: (7 weeks/0 days) EDC: 12/08/2020 No growth performed on today?s study per ordering physician SURVEY HEART RATE: 132 bpm RHYTHM: Normal IMPRESSION: Limited OB ultrasound for heart rate. heart rate measured at 132 BPM. Provided images show a possible small 9 mm perigestational bleed.
[2020-04-21 09:35] VITALS: BP 132/67; PULSE 58; RESP 16; TEMP 98
== END 2020-04-21 09:34 | disposition home or self-care (01) ==
LOC: EC 07:14
DX: O21.1 Hyperemesis gravidarum with metabolic disturbance (principal); O46.91 Antepartum hemorrhage, unspecified, first trimester; R10.13 Epigastric pain; O99.111 Other diseases of the blood and blood-forming organs and certain disorders involving the immune mechanism complicating pregnancy, first trimester; D72.829 Elevated white blood cell count, unspecified; O99.331 Smoking (tobacco) complicating pregnancy, first trimester; F17.200 Nicotine dependence, unspecified, uncomplicated; Z3A.01 Less than 8 weeks gestation of pregnancy
CPT/HCPCS: 36415; 80053; 83690; 85025; 81001; 76815; 99284; 96374; 96375 ×2; 96361 ×2; J1200; J3415; J2765

== ENCOUNTER 2020-05-10 10:16 | Emergency (ER) | payer OTHER ==
[2020-05-10 10:22] VITALS: RESP 18
[2020-05-10] MEDS ORDERED: diphenhydrAMINE 50 MG/ML 1 ML VIAL IVP STA (10:45)
[2020-05-10] MEDS ORDERED: SODIUM CHLORIDE 0.9% 1,000 ML IV STA ×2 (10:45→11:49)
[2020-05-10] MEDS ORDERED: METOCLOPRAMIDE 5 MG/ML 2 ML VIAL IVP STA (10:45)
--- NOTE | 2020-05-10 10:47 | ED ---
General Adult HPI - General Chief complaint: Nausea/Vomiting/Diarrhea Stated complaint: 9 wks preg/abd pain & vomiting Time Seen by Provider: 05/10/20 10:24 Source: patient Mode of arrival: wheelchair Limitations: no limitations - History of Present Illness Initial comments: 25-year-old female currently 9 weeks presents to the emergency r oom for a chief complaint of nausea vomiting. Patient states this started last night. States that she has not been able to keep down the medications prescribed for nausea. Denies fevers. Denies abdominal pain.Patient has no other complaints at this time including shortness of breath, chest pain, abdominal pain, nausea or vomiting, headache, or visual changes. - Related Data Home Medications Medication Instructions Recorded Confirmed Ondansetron Odt [Zofran Odt] 4 mg PO Q8H PRN 04/16/20 04/16/20 Penicillin V Potassium [Pen Vee K] 500 mg PO Q8H 04/16/20 04/16/20 Trinatal Rx 60-1 Mg 1 tab PO DAILY 04/16/20 04/16/20 Previous Rx's Medication Instructions Recorded Ibuprofen 800 mg PO Q8H PRN 7 Days #21 tablet 06/13/19 Cephalexin [Keflex] 500 mg PO Q6HR 5 Days #20 cap 04/10/20 Metoclopramide [Reglan] 10 mg PO TID PRN #15 tab 04/21/20 Allergies Allergy/AdvReac Type Severity Reaction Status Date / Time No Known Allergies Allergy Verified 05/10/20 10:22 Review of Systems ROS Statement: Those systems with pertinent positive or pertinent negative responses have been documented in the HPI. ROS Other: All systems not noted in ROS Statement are negative. Past Medical History Past Medical History: No Reported History History of Any Multi-Drug Resistant Organisms: None Reported Past Surgical History: No Surgical Hx Reported Additional Past Surgical History / Comment(s): cyst removed from buttocks two years ago Past Psychological History: Anxiety, Bipolar, Depression Smoking Status: Current every day smoker Past Alcohol Use History: None Reported Past Drug Use History: Marijuana General Exam Limitations: no limitations General appearance: alert, in no apparent distress Head exam: Present: atraumatic, normocephalic, normal inspection Eye exam: Present: normal appearance, PERRL, EOMI. Absent: scleral icterus, conjunctival injection, periorbital swelling ENT exam: Present: normal exam, mucous membranes moist Neck exam: Present: normal inspection. Absent: tenderness, meningismus, lymphadenopathy Respiratory exam: Present: normal lung sounds bilaterally. Absent: respiratory distress, wheezes, rales, rhonchi, stridor Cardiovascular Exam: Present: regular rate, normal rhythm, normal heart sounds. Absent: systolic murmur, diastolic murmur, rubs, gallop, clicks GI/Abdominal exam: Present: soft, normal bowel sounds. Absent: distended, t enderness, guarding, rebound, rigid Neurological exam: Present: alert Course Vital Signs 05/10/20 10:21 Temperature 98.7 F Pulse Rate 76 Respiratory 18 Rate Blood Pressure 133/82 O2 Sat by Pulse 100 Oximetry Medical Decision Making - Medical Decision Making Patient had an ultrasound on 04/21/2020 that showed heart rate measuring at 132. Vitals are stable. CBC does show leukocytosis which is likely reactive due to vomiting. CMP unremarkable, some evidence of starvation ketosis. 4+ ketones in the urine is likely secondary to dehydration. Patient was given 2 L of fluids and antiemetics here in the emergency room, currently feeling much improved. No active vomiting. Patient does have a confirmed intrauterine . Patient will follow up outpatient with her doctor. She will return here for any worsening symptoms. Patient currently has pyridoxime and Unisom at home for nausea. - Lab Data Result diagrams: 05/10/20 10:50 05/10/20 10:50 Lab Results 05/10/20 05/10/20 05/10/20 Range/Units 10:50 10:50 10:50 WBC 16.4 H (3.8-10.6) k/uL RBC 5.39 (3.80-5.40) m/uL Hgb 14.4 (11.4-16.0) gm/dL Hct 44.1 (34.0-46.0) % MCV 81.7 (80.0-100.0) fL MCH 26.7 (25.0-35.0) pg MCHC 32.7 (31.0-37.0) g/dL RDW 15.5 (11.5-15.5) % Plt Count 252 (150-450) k/uL Neutrophils % 91 % Lymphocytes % 6 % Monocytes % 2 % Eosinophils % 1 % Basophils % 0 % Neutrophils # 14.9 H (1.3-7.7) k/uL Lymphocytes # 1.0 (1.0-4.8) k/uL Monocytes # 0.4 (0-1.0) k/uL Eosinophils # 0.1 (0-0.7) k/uL Basophils # 0.0 (0-0.2) k/uL Sodium 138 (137-145) mmol/L Potassium 3.7 (3.5-5.1) mmol/L Chloride 108 H (98-107) mmol/L Carbon Dioxide 17 L (22-30) mmol/L Anion Gap 13 mmol/L BUN 6 L (7-17) mg/dL Creatinine 0.63 (0.52-1.04) mg/dL Est GFR (CKD-EPI)AfAm >90 (>60 ml/min/1.73 sqM) Est GFR (CKD-EPI)NonAf >90 (>60 ml/min/1.73 sqM) Glucose 116 H (74-99) mg/dL Calcium 10.1 (8.4-10.2) mg/dL Total Bilirubin 0.7 (0.2-1.3) mg/dL AST 20 (14-36) U/L ALT 10 (4-34) U/L Alkaline Phosphatase 89 (38-126) U/L Total Protein 8.2 (6.3-8.2) g/dL Albumin 4.7 (3.5-5.0) g/dL Lipase 94 (23-300) U/L Urine Color Yellow Urine Appearance Clear (Clear) Urine pH 8.5 H (5.0-8.0) Ur Specific [place] 1.025 (1.001-1.035) Urine Protein 1+ H (Negative) Urine Glucose (UA) Negative (Negative) Urine Ketones 4+ H (Negative) Urine Blood Negative (Negative) Urine Nitrite Negative (Negative) Urine Bilirubin Negative (Negative) Urine Urobilinogen <2.0 (<2.0) mg/dL Ur Leukocyte Esterase Moderate H (Negative) Urine RBC 1 (0-5) /hpf Urine WBC 4 (0-5) /hpf Ur Squamous Epith Cells 8 H (0-4) /hpf Urine Mucus Moderate H (None) /hpf Disposition Clinical Impression: Nausea/vomiting in , Ketonuria, Dehydration Disposition: HOME SELF-CARE Condition: Good Instructions (If sedation given, give patient instructions): Hyperemesis Gr avidarum (ED) Additional Instructions: Please follow-up with your MORTGAGE CLOSER as soon as possible. In the meantime drink plenty of fluids and continue your medication for nausea. Return here to the emergency room if you have any worsening symptoms. Is patient prescribed a controlled substance at d/c from ED?: No Referrals: Kt Brooks MD [Primary Care Provider] - 1-2 days Time of Disposition: 12:22
[2020-05-10 11:06] LABS: ALT 10 U/L (4-34); AST 20 U/L (14-36); African American GFR (CKD) >90 (>60 ml/min/1.73 sqM); Albumin 4.7 g/dL (3.5-5.0); Alkaline Phosphatase 89 U/L (38-126); Anion Gap 13 mmol/L; Blood Urea Nitrogen 6 mg/dL (7-17); Calcium 10.1 mg/dL (8.4-10.2); Carbon Dioxide 17 mmol/L (22-30); Chloride 108 mmol/L (98-107); Glucose 116 mg/dL (74-99); Non-African American GFR(CKD) >90 (>60 ml/min/1.73 sqM); Potassium 3.7 mmol/L (3.5-5.1); Sodium 138 mmol/L (137-145); Total Bilirubin 0.7 mg/dL (0.2-1.3); Total Protein 8.2 g/dL (6.3-8.2)
[2020-05-10 11:40] LABS: Appearance,Urine Clear (Clear); Bilirubin,Urine Negative (Negative); Blood,Urine Negative (Negative); Color,Urine Yellow; Glucose,Urine (UA) Negative (Negative); Ketones,Urine 4+ (Negative); Leukocyte Esterase,Urine Moderate (Negative); Mucus,Urine Moderate /hpf; Nitrite,Urine Negative (Negative); PH, Urine 8.5 (5.0-8.0); Protein,Urine 1+ (Negative); RBC,Urine 1 /hpf (0-5); Specific Gravity,Urine 1.025 (1.001-1.035); Squamous Epithelial Cell,Urine 8 /hpf (0-4); Urobilinogen,Urine <2.0 mg/dL (<2.0); WBC,Urine 4 /hpf (0-5)
[2020-05-10 11:41] LABS: Basophils % (A) 0 %; Eosinophils # (A) 0.1 k/uL (0-0.7); Eosinophils % (A) 1 %; HCT 44.1 % (34.0-46.0); HGB 14.4 gm/dL (11.4-16.0); Lymphocytes % (A) 6 %; MCH 26.7 pg (25.0-35.0); MCHC 32.7 g/dL (31.0-37.0); MCV 81.7 fL (80.0-100.0); Mean Platelet Volume 8.2; Monocytes # (A) 0.4 k/uL (0-1.0); Monocytes % (A) 2 %; Neutrophils # (A) 14.9 k/uL (1.3-7.7); Neutrophils % (A) 91 %; Platelet Count 252 k/uL (150-450); RBC 5.39 m/uL (3.80-5.40); RDW 15.5 % (11.5-15.5); WBC 16.4 k/uL (3.8-10.6)
[2020-05-10] MEDS ORDERED: ONDANSETRON 4 MG/2 ML VIAL IVP STA (11:51)
[2020-05-10 13:01] VITALS: BP 136/70; PULSE 70; TEMP 98.3
== END 2020-05-10 13:00 | disposition home or self-care (01) ==
LOC: EC 10:16
DX: O21.1 Hyperemesis gravidarum with metabolic disturbance (principal); O99.111 Other diseases of the blood and blood-forming organs and certain disorders involving the immune mechanism complicating pregnancy, first trimester; D72.829 Elevated white blood cell count, unspecified; R82.4 Acetonuria; O99.331 Smoking (tobacco) complicating pregnancy, first trimester; F17.200 Nicotine dependence, unspecified, uncomplicated; Z3A.09 9 weeks gestation of pregnancy
CPT/HCPCS: 36415; 80053; 83690; 85025; 81001; 99284; 96374; 96375 ×2; 96361 ×2; J1200; J2765; J2405

== ENCOUNTER 2020-05-12 14:42 | Emergency (ER) | payer OTHER ==
[2020-05-12 14:54] VITALS: RESP 18; TEMP 98.1
[2020-05-12] MEDS ORDERED: METOCLOPRAMIDE 5 MG/ML 2 ML VIAL IVP STA (15:21)
[2020-05-12] MEDS ORDERED: diphenhydrAMINE 50 MG/ML 1 ML VIAL IVP STA (15:21)
[2020-05-12] MEDS ORDERED: SODIUM CHLORIDE 0.9% 1,000 ML IV STA ×2 (15:21→16:35)
[2020-05-12 15:51] LABS: Basophils % (A) 0 %; Eosinophils # (A) 0.2 k/uL (0-0.7); Eosinophils % (A) 1 %; HCT 42.8 % (34.0-46.0); HGB 14.7 gm/dL (11.4-16.0); Lymphocytes % (A) 6 %; MCH 28.4 pg (25.0-35.0); MCHC 34.3 g/dL (31.0-37.0); MCV 82.8 fL (80.0-100.0); Mean Platelet Volume 8.3; Monocytes # (A) 0.4 k/uL (0-1.0); Monocytes % (A) 2 %; Neutrophils # (A) 14.8 k/uL (1.3-7.7); Neutrophils % (A) 91 %; Platelet Count 268 k/uL (150-450); RBC 5.18 m/uL (3.80-5.40); RDW 15.2 % (11.5-15.5); WBC 16.3 k/uL (3.8-10.6)
[2020-05-12 16:01] LABS: ALT 11 U/L (4-34); AST 19 U/L (14-36); African American GFR (CKD) >90 (>60 ml/min/1.73 sqM); Albumin 4.6 g/dL (3.5-5.0); Alkaline Phosphatase 76 U/L (38-126); Anion Gap 15 mmol/L; Blood Urea Nitrogen 9 mg/dL (7-17); Calcium 9.9 mg/dL (8.4-10.2); Carbon Dioxide 16 mmol/L (22-30); Chloride 105 mmol/L (98-107); Glucose 101 mg/dL (74-99); Non-African American GFR(CKD) >90 (>60 ml/min/1.73 sqM); Potassium 3.4 mmol/L (3.5-5.1); Sodium 136 mmol/L (137-145); Total Bilirubin 0.9 mg/dL (0.2-1.3); Total Protein 7.9 g/dL (6.3-8.2)
[2020-05-12 16:07] LABS: Appearance,Urine Turbid (Clear); Bilirubin,Urine Negative (Negative); Blood,Urine Small (Negative); Budding Yeast,Urine Many /hpf; Color,Urine Yellow; Glucose,Urine (UA) Negative (Negative); Ketones,Urine 4+ (Negative); Leukocyte Esterase,Urine Negative (Negative); Mucus,Urine Many /hpf; Nitrite,Urine Negative (Negative); PH, Urine 7.5 (5.0-8.0); Protein,Urine 1+ (Negative); RBC,Urine 15 /hpf (0-5); Specific Gravity,Urine 1.031 (1.001-1.035); Sperm,Urine Rare /hpf; Squamous Epithelial Cell,Urine 2 /hpf (0-4)
--- NOTE | 2020-05-12 16:30 | US ---
EXAMINATION TYPE: Transabdominal DATE OF EXAM: 05/12/2020 4:17 PM COMPARISON: US 04/21/2020, 04/16/2020 CLINICAL HISTORY: abd pain. Generalized abd pain, pelvic pain with nausea and vomiting throughout pre gnancy EXAM PERFORMED: Transabdominal (TA) EXAM MEASUREMENTS: GESTATIONAL AGE / DATING Physician Established: (10 weeks/0 days) EDC: 12/08/2020 Dates by LMP: (10 weeks/0 days) EDC: 12/08/2020 Dates by First Scan: (10 weeks/1 day) EDC: 12/07/2020 Dates by Current Scan for: (10 weeks/4 days) EDC: 12/04/2020 MATERNAL ANATOMY Uterus: 11.1 x 7.5 x 6.7cm Right Ovary: 3.5 x 1.9 x 1.6cm Left Ovary: 4.5 x 2.1 x 1.7cm Post CDS / Adnexa: wnl Presence of free fluid: no Presence of corpus luteal cyst: no identified today Presence of subchorionic bleed: no GESTATION / SURVEY CRL: 3.6cm (10 weeks/4 days) Yolk Sac (normal less than 6mm): not seen today Heart Rate: 167 bpm Rhythm: Normal IUP: single, viable IUP Nuchal Translucency 10-14wks (normal less than 3mm): 0.8mm Date of LMP: 03/03/2020 Beta HcG (if available): NA Single, live IUP 10 weeks/4 days, EDC: 12/04/2020, HR 167bpm. IMPRESSION: Single viable intrauterine 10 weeks 4 days with a heart rate of 167 bpm.
[2020-05-12] MEDS ORDERED: ONDANSETRON 4 MG ODT STARTER PACK 2 TAB BTL PO STA (17:12)
--- NOTE | 2020-05-12 17:12 | ED ---
Nausea/Vomiting/Diarrhea HPI - General Chief complaint: Nausea/Vomiting/Diarrhea Stated complaint: Vomiting, 9 Wks Preg Time Seen by Provider: 05/12/20 15:03 Source: patient Mode of arrival: wheelchair Limitations: no limitations - History of Present Illness Initial comments: Patient is a 25-year-old female presenting to the emergency Department with co mplaints of nausea, vomiting, abdominal pain that has been intermittent for last 1-2 weeks. She has been seen here twice for same complaint. She is currently 9 weeks , . Patient states that she did follow up with her MAGAZINE EDITOR, Dr. West, 3 days ago who did give her prescription for Zofran however she is not been able to pick it up. Patient states she's been having intermittent pain s in her lower abdomen that make her nauseous and vomit. She's had no vaginal discharge, no vaginal bleeding. Patient states she's not been able to eat or drink much today. She denies any fever, chills, diarrhea. Patient states she has been constipated as well for the past few days but she did have a bowel movement this morning. They chest pain, shortness of breath, cough. She has no further complaints at this time. - Related Data Home Medications Medication Instructions Recorded Confirmed Ondansetron Odt [Zofran Odt] 4 mg PO Q8H PRN 04/16/20 04/16/20 Penicillin V Potassium [Pen Vee K] 500 mg PO Q8H 04/16/20 04/16/20 Trinatal Rx 60-1 Mg 1 tab PO DAILY 04/16/20 04/16/20 Previous Rx's Medication Instructions Recorded Ibuprofen 800 mg PO Q8H PRN 7 Days #21 tablet 06/13/19 Cephalexin [Keflex] 500 mg PO Q6HR 5 Days #20 cap 04/10/20 Metoclopramide [Reglan] 10 mg PO TID PRN #15 tab 04/21/20 Allergies Allergy/AdvReac Type Severity Reaction Status Date / Time No Known Allergies Allergy Verified 05/12/20 14:53 Review of Systems ROS Statement: Those systems with pertinent positive or pertinent negative responses have been documented in the HPI. ROS Other: All systems not noted in ROS Statement are negative. Past Medical History Past Medical History: No Reported History Additional Past Medical History / Comment(s): HS History of Any Multi-Drug Resistant Organisms: None Reported Past Surgical History: No Surgical Hx Reported Additional Past Surgical History / Comment(s): cyst removed from buttocks two years ago Past Psychological History: Anxiety, Bipolar, Depression Smoking Status: Current some day smoker Past Alcohol Use History: None Reported Past Drug Use History: Marijuana General Exam - General Exam Comments Initial Comments: GENERAL: Patient is crying in the room, holding abdomen, dry heaving but no active vomiting. HEAD: Atraumatic, normocephalic. EYES: Pupils equal round and reactive to light, extraocular movements intact, sclera anicteric, conjunctiva are normal. Eyelids were unremarkable. ENT: TMs normal, nares patent, oropharynx clear without exudates. Moist mucous membranes. NECK: Normal range of motion, supple without lymphadenopathy or JVD. LUNGS: Unlabored respirations. Breath sounds clear to auscultation bilaterally and equal. No wheezes rales or rhonchi. HEART: Regular rate and rhythm without murmurs, rubs or gallops. ABDOMEN: Mild tenderness to palpation of the lower abdomen. Soft, nontender, normoactive bowel sounds. No guarding, no rebound. No masses appreciated. : Deferred MUSCULOSKELETAL: Normal extremities with adequate strength and normal range of motion, no pitting or edema. No clubbing or cyanosis. NEUROLOGICAL: Patient is alert and oriented x 3. Motor and sensory are also intact. Cranial nerves II through XII grossly intact. Symmetrical smile. Normal speech, normal gait. PSYCH: Normal mood, normal affect. SKIN: Warm, Dry, normal turgor, no rashes or lesions noted. Limitations: no limitations Course Vital Signs 05/12/20 05/12/20 14:51 17:25 Temperature 98.1 F 98.1 F Pulse Rate 69 74 Respiratory 18 18 Rate Blood Pressure 141/87 151/93 O2 Sat by Pulse 100 100 Oximetry Medical Decision Making - Medical Decision Making Patient is a 25-year-old female here for nausea, vomiting, intermittent abdominal pain for the past few weeks. This is patient's third visit for same complaint. She is 9 weeks , , MAGAZINE EDITOR is Dr. West. Patient is crying upon entrance to the ER. Her vital signs are stable. Her labs show slight leukocytosis, 16.3, likely reactive, as well as 4+ ketones which are also was likely from dehydration. ultrasound shows a single viable IUP, 10 weeks, 4 days with a heart rate of 167. Patient was given a total 2 L of f luids, Benadryl and Reglan and feels signifcant improvement in her symptoms. She is requesting to go home. I did recommend her continuing with Zofran as needed for the nausea, gave her a starter pack. I recommended taking it as soon as she feels a little bit of nausea that way it is under control and she may still be able to drink. Follow up with MAGAZINE EDITOR. She is in agreement with this plan of care. She is stable for discharge. - Lab Data Result diagrams: 05/12/20 15:21 05/12/20 15:21 Lab Results 05/12/20 05/12/20 05/12/20 Range/Units 15:21 15:21 15:21 WBC 16.3 H (3.8-10.6) k/uL RBC 5.18 (3.80-5.40) m/uL Hgb 14.7 (11.4-16.0) gm/dL Hct 42.8 (34.0-46.0) % MCV 82.8 (80.0-100.0) fL MCH 28.4 (25.0-35.0) pg MCHC 34.3 (31.0-37.0) g/dL RDW 15.2 (11.5-15.5) % Plt Count 268 (150-450) k/uL Neutrophils % 91 % Lymphocytes % 6 % Monocytes % 2 % Eosinophils % 1 % Basophils % 0 % Neutrophils # 14.8 H (1.3-7.7) k/uL Lymphocytes # 1.0 (1.0-4.8) k/uL Monocytes # 0.4 (0-1.0) k/uL Eosinophils # 0.2 (0-0.7) k/uL Basophils # 0.0 (0-0.2) k/uL Sodium 136 L (137-145) mmol/L Potassium 3.4 L (3.5-5.1) mmol/L Chloride 105 (98-107) mmol/L Carbon Dioxide 16 L (22-30) mmol/L Anion Gap 15 mmol/L BUN 9 (7-17) mg/dL Creatinine 0.71 (0.52-1.04) mg/dL Est GFR (CKD-EPI)AfAm >90 (>60 ml/min/1.73 sqM) Est GFR (CKD-EPI)NonAf >90 (>60 ml/min/1.73 sqM) Glucose 101 H (74-99) mg/dL Calcium 9.9 (8.4-10.2) mg/dL Total Bilirubin 0.9 (0.2-1.3) mg/dL AST 19 (14-36) U/L ALT 11 (4-34) U/L Alkaline Phosphatase 76 (38-126) U/L Total Protein 7.9 (6.3-8.2) g/dL Albumin 4.6 (3.5-5.0) g/dL Urine Color Yellow Urine Appearance Turbid H (Clear) Urine pH 7.5 (5.0-8.0) Ur Specific [place] 1.031 (1.001-1.035) Urine Protein 1+ H (Negative) Urine Glucose (UA) Negative (Negative) Urine Ketones 4+ H (Negative) Urine Blood Small H (Negative) Urine Nitrite Negative (Negative) Urine Bilirubin Negative (Negative) Urine Urobilinogen 2.0 (<2.0) mg/dL Ur Leukocyte Esterase Negative (Negative) Urine RBC 15 H (0-5) /hpf Urine WBC Clumps Few H (None) /hpf Ur Squamous Epith Cells 2 (0-4) /hpf Urine Mucus Many H (None) /hpf Urine Yeast (Budding) Many H (None) /hpf Urine Sperm Rare (None) /hpf Disposition Clinical Impression: Dehydration, Ketonuria, Nausea/vomiting in , Abdominal pain Disposition: HOME SELF-CARE Condition: Stable Instructions (If sedation given, give patient instructions): Abdominal Pain in (ED) Additional Instructions: Please return to the Emergency Department if symptoms worsen or any other concerns. Recommend taking Zofran at first sign of significant nausea. Take small sips of water, with no large quantities at one time Follow-up with MAGAZINE EDITOR. Is patient prescribed a controlled substance at d/c from ED?: No Referrals: Kt Brooks MD [Primary Care Provider] - 1-2 days Dylon West DO [Doctor of Osteopathic Medicine] - 1-2 days
[2020-05-12 17:28] VITALS: BP 151/93; PULSE 74
== END 2020-05-12 17:37 | disposition home or self-care (01) ==
LOC: EC 14:42
DX: O21.9 Vomiting of pregnancy, unspecified (principal); O99.281 Endocrine, nutritional and metabolic diseases complicating pregnancy, first trimester; E86.0 Dehydration; O99.331 Smoking (tobacco) complicating pregnancy, first trimester; F17.200 Nicotine dependence, unspecified, uncomplicated; O26.891 Other specified pregnancy related conditions, first trimester; R10.9 Unspecified abdominal pain; O99.891 Other specified diseases and conditions complicating pregnancy; R82.4 Acetonuria; Z3A.09 9 weeks gestation of pregnancy
CPT/HCPCS: 99284 ×2; 96374 ×2; 96375 ×2; 96361 ×2; 36415; 80053; 85025; 81001; 76813; 76801; J1200; J2765; S0119

== ENCOUNTER 2020-06-11 15:11 | Emergency (ER) | payer OTHER ==
[2020-06-11 15:15] VITALS: BP 131/82; PULSE 70; RESP 18; TEMP 97.3
[2020-06-11 15:41] LABS: Appearance,Urine Clear (Clear); Bacteria,Urine Occasional /hpf; Bilirubin,Urine Negative (Negative); Blood,Urine Negative (Negative); Color,Urine Yellow; Glucose,Urine (UA) Negative (Negative); Ketones,Urine 4+ (Negative); Leukocyte Esterase,Urine Small (Negative); Mucus,Urine Many /hpf; Nitrite,Urine Negative (Negative); Protein,Urine 1+ (Negative); RBC,Urine 2 /hpf (0-5); Specific Gravity,Urine 1.034 (1.001-1.035); Squamous Epithelial Cell,Urine 5 /hpf (0-4); Urobilinogen,Urine <2.0 mg/dL (<2.0); WBC,Urine 2 /hpf (0-5)
== END 2020-06-11 16:14 | disposition left against medical advice (07) ==
LOC: EC 15:11
DX: R10.9 Unspecified abdominal pain (principal); R11.10 Vomiting, unspecified; Z53.9 Procedure and treatment not carried out, unspecified reason
CPT/HCPCS: 81001; 99499

== ENCOUNTER 2020-06-12 02:17 | Emergency (ER) | payer OTHER ==
[2020-06-12 02:26] VITALS: BP 140/69; PULSE 74; RESP 16; TEMP 98.2
[2020-06-12] MEDS ORDERED: DEXTROSE 5%-0.45% NACL 2,000 ML IV ONE (02:37)
[2020-06-12] MEDS ORDERED: METOCLOPRAMIDE 5 MG/ML 2 ML VIAL IVP STA (03:11)
[2020-06-12] MEDS ORDERED: MAG HYDROX/AL HYDROX/SIMETH 30 ML CUP PO PRN (03:11)
--- NOTE | 2020-06-12 05:06 | ED ---
Nausea/Vomiting/Diarrhea HPI - General Chief complaint: Nausea/Vomiting/Diarrhea Stated complaint: Nausea, Vomiting Time Seen by Provider: 06/12/20 02:27 Source: patient, EMS Mode of arrival: EMS Limitations: no limitations - History of Present Illness Initial comments: this patient is a 25-year-old woman, approximately 14 weeks , presenting with complaint of intractable nausea and vomiting. She states that it started a number of hours ago when she did come here initially but found the way to long and went home. She states that the symptoms did not resolve so she returns. She has had this previously and has required IV fluid to bright cyclic vomiting. The patient is not really having much in way of abdominal pain urrently, though she has had some intermittent epigastric discomfort.. No vaginal discharge or bleeding. MD complaint: nausea, vomiting -: hour(s) Description of Vomiting: food contents Associated Abdominal Pain: No Radiation: none Improves with: none Worsens with: none Associated Symptoms: nausea/vomiting - Related Data Home Medications Medication Instructions Recorded Confirmed Ondansetron Odt [Zofran Odt] 4 mg PO Q8H PRN 04/16/20 04/16/20 Penicillin V Potassium [Pen Vee K] 500 mg PO Q8H 04/16/20 04/16/20 Trinatal Rx 60-1 Mg 1 tab PO DAILY 04/16/20 04/16/20 Previous Rx's Medication Instructions Recorded Ibuprofen 800 mg PO Q8H PRN 7 Days #21 tablet 06/13/19 Cephalexin [Keflex] 500 mg PO Q6HR 5 Days #20 cap 04/10/20 Metoclopramide [Reglan] 10 mg PO TID PRN #15 tab 04/21/20 Doxylamine/Pyridoxine HCl (B6) 1 each PO QID PRN #20 tablet. 06/12/20 [Justine Odom 10-10 mg Tablet] Allergies Allergy/AdvReac Type Severity Reaction Status Date / Time No Known Allergies Allergy Verified 06/11/20 15:15 Review of Systems ROS Statement: Those systems with pertinent positive or pertinent negative responses have been documented in the HPI. ROS Other: All systems not noted in ROS Statement are negative. Constitutional: Denies: fever, chills Respiratory: Denies: cough, dyspnea, wheezes Cardiovascular: Denies: chest pain, palpitations, edema, syncope Gastrointestinal: Reports: as per HPI, nausea, vomiting. Denies: diarrhea, constipation, hematemesis, melena, hematochezia Genitourinary: Denies: dysuria, hematuria, discharge, abnormal menses Musculoskeletal: Denies: back pain Skin: Denies: rash Neurological: Denies: headache, weakness, numbness Past Medical History Past Medical History: No Reported History Additional Past Medical History / Comment(s): HS, History of Any Multi-Drug Resistant Organisms: None Reported Past Surgical History: No Surgical Hx Reported Additional Past Surgical History / Comment(s): cyst removed from buttocks two years ago, Past Psychological History: Anxiety, Bipolar, Depression Smoking Status: Current some day smoker Past Alcohol Use History: None Reported Past Drug Use History: Marijuana General Exam Limitations: no limitations General appearance: alert, in no apparent distress Head exam: Present: atraumatic, normocephalic Eye exam: Present: normal appearance. Absent: scleral icterus, conjunctival injection ENT exam: Present: normal oropharynx Neck exam: Present: normal inspection Respiratory exam: Present: normal lung sounds bilaterally. Absent: respiratory distress, wheezes, rales, rhonchi, stridor Cardiovascular Exam: Present: regular rate, normal rhythm, normal heart sounds. Absent: systolic murmur, diastolic murmur, rubs, gallop GI/Abdominal exam: Present: soft. Absent: distended, tenderness, guarding, rebound, rigid, mass Extremities exam: Present: normal inspection, normal capillary refill. Absent: pedal edema, calf tenderness Back exam: Absent: CVA tenderness (R), CVA tenderness (L) Neurological exam: Present: alert Skin exam: Present: warm, dry, intact, normal color. Absent: rash Course Vital Signs 06/12/20 02:20 Temperature 98.2 F Pulse Rate 74 Respiratory 16 Rate Blood Pressure 140/69 O2 Sat by Pulse 99 Oximetry Disposition Clinical Impression: Hyperemesis gravidarum Disposition: HOME SELF-CARE Condition: Good Instructions (If sedation given, give patient instructions): Hyperemesis Gravidarum (ED) Prescriptions: Doxylamine/Pyridoxine HCl (B6) [Justine Odom 10-10 mg Tablet] 1 each PO QID PRN #20 tablet. PRN Reason: Vomiting Is patient prescribed a controlled substance at d/c from ED?: No Referrals: Kt Brooks MD [Primary Care Provider] - 1-2 days
== END 2020-06-12 05:12 | disposition home or self-care (01) ==
LOC: EC 02:17
DX: O21.0 Mild hyperemesis gravidarum (principal); O99.331 Smoking (tobacco) complicating pregnancy, first trimester; F17.200 Nicotine dependence, unspecified, uncomplicated; Z3A.14 14 weeks gestation of pregnancy
CPT/HCPCS: 99284; 96374; 96361 ×2; J2765

== ENCOUNTER 2020-06-12 22:10 | Emergency (ER) | payer OTHER ==
[2020-06-12] MEDS ORDERED: SODIUM CHLORIDE 0.9% 1,000 ML IV ONE (22:24)
[2020-06-12] MEDS ORDERED: METOCLOPRAMIDE 5 MG/ML 2 ML VIAL IVP STA (22:24)
--- NOTE | 2020-06-12 22:57 | ED ---
Abdominal Pain HPI - General Chief Complaint: Abdominal Pain Stated Complaint: Abdominal pain, 14wks preg Time Seen by Provider: 06/12/20 22:17 Source: patient, EMS Mode of arrival: EMS Limitations: no limitations - History of Present Illness Initial Comments: this patient is 25-year-old woman presenting to be evaluated for abdominal pain, nausea and vomiting. he patient relates that she is approximately 14 weeks . She has been having problems with hyperemesis. She was seen here yesterday for the same, was feeling better and went home. This morning she states that she went [employer] store and while she was there she started having the recurrence ofnausea and this time some periumbilical abdominal pain. She went home and has been having nausea and vomiting since and now is not keeping down fluids any longer. She states she has had probably 4 episodes of vomiting, no coffee-ground or blood. The pain is periumbilical and gets worse with vomiting. No change in bowel movements or urination. No vaginal discharge or bleeding. She is not experiencing anylower abdominal cramping. MD Complaint: abdominal pain Onset/Timin -: hour(s) Location: periumbilical Radiation: none Migration to: no migration Severity: moderate Quality: aching, burning Consistency: constant Improves With: nothing Worsens With: vomiting Associated Symptoms: nausea, vomiting - Related Data Home Medications Medication Instructions Recorded Confirmed Trinatal Rx 60-1 Mg 1 tab PO DAILY 04/16/20 06/12/20 Previous Rx's Medication Instructions Recorded Amoxicillin 500 mg PO Q8H #21 capsule 06/13/20 Metoclopramide [Reglan] 5 mg PO Q6H PRN #10 tab 06/13/20 Allergies Allergy/AdvReac Type Severity Reaction Status Date / Time No Known Allergies Allergy Verified 06/12/20 22:57 Review of Systems ROS Statement: Those systems with pertinent positive or pertinent negative responses have been documented in the HPI. ROS Other: All systems not noted in ROS Statement are negative. Constitutional: Denies: fever, chills Respiratory: Denies: cough, dyspnea Cardiovascular: Denies: chest pain, palpitations, edema Gastrointestinal: Reports: abdominal pain, nausea, vomiting. Denies: diarrhea, constipation, melena, hematochezia Genitourinary: Denies: dysuria, frequency, hematuria, discharge, abnormal menses Musculoskeletal: Denies: back pain Skin: Denies: rash Neurological: Denies: headache, weakness, numbness Past Medical History Past Medical History: No Reported History Additional Past Medical History / Comment(s): HS, History of Any Multi-Drug Resistant Organisms: None Reported Past Surgical History: No Surgical Hx Reported Additional Past Surgical History / Comment(s): cyst removed from buttocks two years ago, Past Psychological History: Anxiety, Bipolar, Depression Smoking Status: Current some day smoker Past Alcohol Use History: None Reported Past Drug Use History: Marijuana General Exam Limitations: no limitations General appearance: alert, in no apparent distress Head exam: Present: atraumatic, normocephalic Eye exam: Present: normal appearance. Absent: scleral icterus, conjunctival injection ENT exam: Present: normal oropharynx Respiratory exam: Present: normal lung sounds bilaterally. Absent: respiratory distress, wheezes, rales, rhonchi, stridor Cardiovascular Exam: Present: regular rate, normal rhythm, normal heart sounds. Absent: systolic murmur, diastolic murmur, rubs, gallop GI/Abdominal exam: Present: soft, hypoactive bowel sounds. Absent: distended, tenderness, guarding, rebound, rigid, mass, pulsatile mass, hernia Extremities exam: Present: normal inspection, normal capillary refill. Absent: pedal edema, calf tenderness Back exam: Present: normal inspection. Absent: CVA tenderness (R), CVA tenderness (L) Neurological exam: Present: alert Skin exam: Present: warm, dry, intact, normal color. Absent: rash Course Vital Signs 06/12/20 06/12/20 06/13/20 22:47 23:47 00:57 Temperature 98.5 F Pulse Rate 75 73 65 Respiratory 20 18 18 Rate Blood Pressure 133/91 131/86 128/70 O2 Sat by Pulse 100 99 99 Oximetry Medical Decision Making - Lab Data Result diagrams: 06/12/20 23:11 Lab Results 06/12/20 06/12/20 Range/Units 23:11 23:21 Sodium 135 L (137-145) mmol/L Potassium 3.1 L (3.5-5.1) mmol/L Chloride 108 H (98-107) mmol/L Carbon Dioxide 18 L (22-30) mmol/L Anion Gap 9 mmol/L BUN 5 L (7-17) mg/dL Creatinine 0.67 (0.52-1.04) mg/dL Est GFR (CKD-EPI)AfAm >90 (>60 ml/min/1.73 sqM) Est GFR (CKD-EPI)NonAf >90 (>60 ml/min/1.73 sqM) Glucose 101 H (74-99) mg/dL Calcium 8.7 (8.4-10.2) mg/dL Total Bilirubin 0.8 (0.2-1.3) mg/dL AST 16 (14-36) U/L ALT 8 (4-34) U/L Alkaline Phosphatase 58 (38-126) U/L C-Reactive Protein 6.4 (<10.0) mg/L Total Protein 6.8 (6.3-8.2) g/dL Albumin 3.7 (3.5-5.0) g/dL Amylase 97 (30-110) U/L Lipase 123 (23-300) U/L Urine Color Yellow Urine Appearance Turbid H (Clear) Urine pH 7.5 (5.0-8.0) Ur Specific [place] 1.021 (1.001-1.035) Urine Protein Trace H (Negative) Urine Glucose (UA) Negative (Negative) Urine Ketones 4+ H (Negative) Urine Blood Negative (Negative) Urine Nitrite Negative (Negative) Urine Bilirubin Negative (Negative) Urine Urobilinogen <2.0 (<2.0) mg/dL Ur Leukocyte Esterase Moderate H (Negative) Urine RBC 2 (0-5) /hpf Urine WBC 7 H (0-5) /hpf Ur Squamous Epith Cells 13 H (0-4) /hpf Amorphous Sediment Moderate H (None) /hpf Urine Bacteria Occasional H (None) /hpf Urine Mucus Rare H (None) /hpf Disposition Clinical Impression: Hyperemesis gravidarum Disposition: HOME SELF-CARE Condition: Good Instructions (If sedation given, give patient instructions): Hyperemesis Gravidarum (ED) Prescriptions: Amoxicillin 500 mg PO Q8H #21 capsule Metoclopramide [Reglan] 5 mg PO Q6H PRN #10 tab PRN Reason: Vomiting Is patient prescribed a controlled substance at d/c from ED?: No Referrals: tK Brooks MD [Primary Care Provider] - 1-2 days
[2020-06-12 23:59] LABS: ALT 8 U/L (4-34); AST 16 U/L (14-36); African American GFR (CKD) >90 (>60 ml/min/1.73 sqM); Albumin 3.7 g/dL (3.5-5.0); Alkaline Phosphatase 58 U/L (38-126); Amylase 97 U/L (30-110); Anion Gap 9 mmol/L; Blood Urea Nitrogen 5 mg/dL (7-17); C Reactive Protein 6.4 mg/L (<10.0); Calcium 8.7 mg/dL (8.4-10.2); Carbon Dioxide 18 mmol/L (22-30); Chloride 108 mmol/L (98-107); Glucose 101 mg/dL (74-99); Lipase 123 U/L (23-300); Non-African American GFR(CKD) >90 (>60 ml/min/1.73 sqM); Potassium 3.1 mmol/L (3.5-5.1); Sodium 135 mmol/L (137-145); Total Bilirubin 0.8 mg/dL (0.2-1.3); Total Protein 6.8 g/dL (6.3-8.2)
[2020-06-13] MEDS ORDERED: DEXTROSE 5%-0.45% NACL 1,000 ML IV ONE (00:03)
[2020-06-13 00:32] LABS: Amorphous Sediment,Urine Moderate /hpf; Appearance,Urine Turbid (Clear); Bacteria,Urine Occasional /hpf; Bilirubin,Urine Negative (Negative); Blood,Urine Negative (Negative); Color,Urine Yellow; Glucose,Urine (UA) Negative (Negative); Ketones,Urine 4+ (Negative); Leukocyte Esterase,Urine Moderate (Negative); Mucus,Urine Rare /hpf; Nitrite,Urine Negative (Negative); PH, Urine 7.5 (5.0-8.0); Protein,Urine Trace (Negative); RBC,Urine 2 /hpf (0-5); Specific Gravity,Urine 1.021 (1.001-1.035); Squamous Epithelial Cell,Urine 13 /hpf (0-4); Urobilinogen,Urine <2.0 mg/dL (<2.0); WBC,Urine 7 /hpf (0-5)
[2020-06-13 00:59] VITALS: RESP 18
[2020-06-13 01:58] VITALS: BP 137/89; PULSE 73; TEMP 98.6
== END 2020-06-13 01:39 | disposition home or self-care (01) ==
LOC: EC 22:10
DX: O21.0 Mild hyperemesis gravidarum (principal); O99.332 Smoking (tobacco) complicating pregnancy, second trimester; F17.200 Nicotine dependence, unspecified, uncomplicated; O99.891 Other specified diseases and conditions complicating pregnancy; R10.9 Unspecified abdominal pain; Z79.899 Other long term (current) drug therapy; Z3A.14 14 weeks gestation of pregnancy
CPT/HCPCS: 99284 ×2; 96374 ×2; 96361 ×3; 36415; 80053; 82150; 83690; 86140; 81001; J2765

== ENCOUNTER 2020-06-15 05:06 | Emergency (ER) | payer OTHER ==
[2020-06-15] MEDS ORDERED: diphenhydrAMINE 50 MG/ML 1 ML VIAL IVP STA (05:16)
[2020-06-15] MEDS ORDERED: SODIUM CHLORIDE 0.9% 1,000 ML IV ONE (05:16)
[2020-06-15] MEDS ORDERED: METOCLOPRAMIDE 5 MG/ML 2 ML VIAL IVP STA (05:16)
[2020-06-15] MEDS ORDERED: DEXTROSE 5%-0.45% NACL 1,000 ML IV ONE (05:16)
--- NOTE | 2020-06-15 05:36 | ED ---
Nausea/Vomiting/Diarrhea HPI - General Chief complaint: Nausea/Vomiting/Diarrhea Stated complaint: Nausea, Vomiting Time Seen by Provider: 06/15/20 05:11 Source: patient, EMS Mode of arrival: EMS Limitations: no limitations - History of Present Illness Initial comments: Khadijah is a 25yo female currently 15w gestation 17 to the ER this morning via ambulance for evaluation of nausea and vomiting. Patient reports she's had 5 episodes of vomiting overnight. She states she can't keep anything down despite taking home medications of prompted her to return to the ER for reevaluation. Patient has been seen for this 4 times this month. She has followed with her OB, she is prescribed Reglan. - Related Data Home Medications Medication Instructions Recorded Confirmed Trinatal Rx 60-1 Mg 1 tab PO DAILY 04/16/20 06/12/20 Previous Rx's Medication Instructions Recorded Amoxicillin 500 mg PO Q8H #21 capsule 06/13/20 Metoclopramide [Reglan] 5 mg PO Q6H PRN #10 tab 06/13/20 Allergies Allergy/AdvReac Type Severity Reaction Status Date / Time No Known Allergies Allergy Verified 06/12/20 22:57 Review of Systems ROS Statement: Those systems with pertinent positive or pertinent negative responses have been documented in the HPI. ROS Other: All systems not noted in ROS Statement are negative. Past Medical History Past Medical History: No Reported History Additional Past Medical History / Comment(s): HS, History of Any Multi-Drug Resistant Organisms: None Reported Past Surgical History: No Surgical Hx Reported Additional Past Surgical History / Comment(s): cyst removed from buttocks two years ago, Past Psychological History: Anxiety, Bipolar, Depression Smoking Status: Current some day smoker Past Alcohol Use History: None Reported Past Drug Use History: Marijuana General Exam - General Exam Comments Initial Comments: Physical Exam GENERAL: Patient is well-developed and well-nourished. Patient is nontoxic and well-hydrated and is in no distress. HENT: Normocephalic, Atraumatic. EYES: PERRL, EOMI PULMONARY: Unlabored respirations. CARDIOVASCULAR: RRR Warm and well perfused extremities ABDOMEN: Non-distended SKIN: No rashes or bruising : Deferred NEUROLOGIC: Alert and oriented Normal speech Normal gait MUSCULOSKELETAL: Moving all extremities with no apparent injury PSYCHIATRIC: No SI/HI Limitations: no limitations Course Vital Signs 06/15/20 05:16 Temperature 98 F Pulse Rate 80 Respiratory 20 Rate Blood Pressure 143/97 O2 Sat by Pulse 100 Oximetry Medical Decision Making - Medical Decision Making she was seen and evaluated history is obtained from the patient Patient's 15 weeks suffering from hyperemesis frequent nausea and vomiting Reglan and Benadryl were ordered as well as IV fluids Patient received about a liter of IV fluids and her medication she reported feel ing completely better, tolerating by mouth intake has had no vomiting comfortable plan for discharge home and continued outpatient follow-up for her - Lab Data Result diagrams: 06/15/20 05:30 06/15/20 05:30 Lab Results 06/15/20 06/15/20 Range/Units 05:30 05:30 WBC 12.5 H (3.8-10.6) k/uL RBC 4.82 (3.80-5.40) m/uL Hgb 14.4 (11.4-16.0) gm/dL Hct 40.5 (34.0-46.0) % MCV 83.9 (80.0-100.0) fL MCH 29.9 (25.0-35.0) pg MCHC 35.7 (31.0-37.0) g/dL RDW 14.2 (11.5-15.5) % Plt Count 220 (150-450) k/uL MPV 8.3 Neutrophils % 82 % Lymphocytes % 11 % Monocytes % 4 % Eosinophils % 2 % Basophils % 0 % Neutrophils # 10.2 H (1.3-7.7) k/uL Lymphocytes # 1.4 (1.0-4.8) k/uL Monocytes # 0.5 (0-1.0) k/uL Eosinophils # 0.2 (0-0.7) k/uL Basophils # 0.0 (0-0.2) k/uL Sodium 135 L (137-145) mmol/L Potassium 3.1 L (3.5-5.1) mmol/L Chloride 105 (98-107) mmol/L Carbon Dioxide 18 L (22-30) mmol/L Anion Gap 12 mmol/L BUN 8 (7-17) mg/dL Creatinine 0.72 (0.52-1.04) mg/dL Est GFR (CKD-EPI)AfAm >90 (>60 ml/min/1.73 sqM) Est GFR (CKD-EPI)NonAf >90 (>60 ml/min/1.73 sqM) Glucose 98 (74-99) mg/dL Calcium 9.4 (8.4-10.2) mg/dL Total Bilirubin 0.8 (0.2-1.3) mg/dL AST 24 (14-36) U/L ALT 18 (4-34) U/L Alkaline Phosphatase 66 (38-126) U/L Total Protein 7.2 (6.3-8.2) g/dL Albumin 4.1 (3.5-5.0) g/dL Disposition Clinical Impression: Vomiting affecting Disposition: HOME SELF-CARE Condition: Stable Additional Instructions: Continue to drink small sips of water or gatorade Take Reglan and benadryl as needed for nausea Follow up with Dr West Return to the ER for any worsening or concerns for dehydration Is patient prescribed a controlled substance at d/c from ED?: No Referrals: Kt Brooks MD [Primary Care Provider] - 1-2 days
[2020-06-15 05:38] LABS: Basophils % (A) 0 %; Eosinophils # (A) 0.2 k/uL (0-0.7); Eosinophils % (A) 2 %; HCT 40.5 % (34.0-46.0); HGB 14.4 gm/dL (11.4-16.0); Lymphocytes # (A) 1.4 k/uL (1.0-4.8); Lymphocytes % (A) 11 %; MCH 29.9 pg (25.0-35.0); MCHC 35.7 g/dL (31.0-37.0); MCV 83.9 fL (80.0-100.0); Mean Platelet Volume 8.3; Monocytes # (A) 0.5 k/uL (0-1.0); Monocytes % (A) 4 %; Neutrophils # (A) 10.2 k/uL (1.3-7.7); Neutrophils % (A) 82 %; Platelet Count 220 k/uL (150-450); RBC 4.82 m/uL (3.80-5.40); RDW 14.2 % (11.5-15.5); WBC 12.5 k/uL (3.8-10.6)
[2020-06-15 05:48] LABS: ALT 18 U/L (4-34); AST 24 U/L (14-36); African American GFR (CKD) >90 (>60 ml/min/1.73 sqM); Albumin 4.1 g/dL (3.5-5.0); Alkaline Phosphatase 66 U/L (38-126); Anion Gap 12 mmol/L; Blood Urea Nitrogen 8 mg/dL (7-17); Calcium 9.4 mg/dL (8.4-10.2); Carbon Dioxide 18 mmol/L (22-30); Chloride 105 mmol/L (98-107); Glucose 98 mg/dL (74-99); Non-African American GFR(CKD) >90 (>60 ml/min/1.73 sqM); Potassium 3.1 mmol/L (3.5-5.1); Sodium 135 mmol/L (137-145); Total Bilirubin 0.8 mg/dL (0.2-1.3); Total Protein 7.2 g/dL (6.3-8.2)
[2020-06-15 06:37] VITALS: BP 134/77; PULSE 60; RESP 16; TEMP 98.1
== END 2020-06-15 07:01 | disposition home or self-care (01) ==
LOC: EC 05:06
DX: O21.9 Vomiting of pregnancy, unspecified (principal); O99.332 Smoking (tobacco) complicating pregnancy, second trimester; F17.200 Nicotine dependence, unspecified, uncomplicated; Z3A.15 15 weeks gestation of pregnancy
CPT/HCPCS: 36415; 80053; 85025; 99283; 96374; 96375; 96361; J1200; J2765

== ENCOUNTER 2020-07-31 11:53 | Outpatient (CLI) | payer OTHER ==
[2020-07-31 14:16] VITALS: BP 133/76; PULSE 77; RESP 20; TEMP 96.3
--- NOTE | 2020-08-01 06:08 | P.MSEPDOC ---
Presenting Problems - Arrival Data Date of Arrival on Unit: 07/31/20 Time of Arrival on Unit: 11:35 Mode of Transport: EMS - Complaint OB-Reason for Admission/Chief Complaint: Other Comment: arrives with abd pains at 21 weeks. has had these pains off and on for a few days. not timeable per pt. pt unable to answer/comprehend questions. pt yelling aloud and grasping the hands and arms of nurses. enc to relax and breathe thru pains. abd soft to palpation. fetus active with fhr to abd with auscultation. pt seems to be in more discomfort with activity and settles in between movements. fhr 150 auscultation Medical History - Information : 1 Para: 0 Term: 0 : 0 Abortions: Spontaneous or Elective: 0 Number of Living Children: 0 - Gestational Age Gestational Age by ESSIE (wks/days): 21 Weeks and 1 Days Review of Systems - Review of Systems Constitutional: No problems Breast: No problems ENT: No problems Cardiovascular: No problems Respiratory: No problems Gastrointestinal: Diarrhea Genitourinary: No problems Musculoskeletal: No problems Neurological: No problems Skin: No problems Comment: pt states emesis x 1 this am and diarrhea. none since that time. Vital Signs - Temperature Temperature: 96.3 F Temperature Source: Oral - Pulse Right Brachial Pulse Rate: 77 Pulse Assessment Method: Automatic Cuff - Respirations Respiratory Rate: 20 O2 Sat by Pulse Oximetry: 97 - Blood Pressure Right Arm Blood Pressure: 133/76 Blood Pressure Mean: 95 Blood Pressure Source: Automatic Cuff Medical Screen Scoring (Pre) - Cervical Exam Dilation: 0 cm = 0 Membranes: Intact - Uterine Contractions Frequency: N/A Duration: N/A Intensity: N/A - Maternal Vital Signs Maternal Temperature: N/A Maternal Blood Pressure: N/A Signs of Preeclampsia: N/A Maternal Respirations: N/A - Maternal Trauma Maternal Trauma: N/A - Assessment - Baby A Baseline FHR: 150 Heart Rate - NICHD Category: Category I (Normal) = 0 - Total Score - Baby A Total Score - Baby A: 0 - Total Score - Baby B Total Score - Baby B: 0 - Total Score - Baby C Total Score - Baby C: 0 - Level of Risk - Baby A Level of Risk - Baby A: Low (0-5) - Level of Risk - Baby B Level of Risk - Baby B: Low (0-5) - Level of Risk - Baby C Level of Risk - Baby C: Low (0-5) Physician Notification (Pre) - Physician Notified Physician Notified Date: 07/31/20 Physician Notified Time: 12:55 Spoke With: lucila Galeana Order Received: Yes - Notification Comment Comment: discharge home Disposition - Disposition OB Disposition: Discharge to home Discharge Date: 07/31/20 Discharge Time: 13:10 I agree with the RN Medical Screening Exam: Yes Risk & Benefit of care provided described in d/c instruction: Yes Diagnosis: RELATED CONDITIONS, UNSPECIFIED, SECOND TRIMESTER
== END 2020-07-31 13:10 | disposition home or self-care (01) ==
LOC: FBPOP 11:53
PROVIDERS: ATTEND Obstetrics & Gynecology
DX: O26.92 Pregnancy related conditions, unspecified, second trimester (principal); Z3A.21 21 weeks gestation of pregnancy
CPT/HCPCS: 96360; G0463; 99213

== ENCOUNTER 2020-09-17 12:44 | Outpatient (CLI) | payer OTHER ==
[2020-09-17] MEDS: LACTATED RINGERS 1,000 ML IV SCH ×2 (13:20→15:08)
[2020-09-17 13:33] LABS: Glucose,Whole Blood 120 mg/dL (75-99)
[2020-09-17] MEDS ORDERED: BUTORPHANOL 1 MG/ML 1 ML VIAL IV PRN (13:45)
[2020-09-17 13:56] LABS: Amphetamine Screen,Urine Not Detected (NotDetected); Barbiturate Screen,Urine Not Detected (NotDetected); Benzodiazepines Screen,Urine Not Detected (NotDetected); Cocaine Screen,Urine Not Detected (NotDetected); Methadone Screen, Urine Not Detected (NotDetected); Opiate Screen,Urine Not Detected (NotDetected); Oxycodone Screen, Urine Not Detected (NotDetected); Phencyclidine Screen,Urine Not Detected (NotDetected); Tricyclic Antidepressant,Urine Not Detected (NotDetected); Urn Cannabinoid Scrn Detected (NotDetected)
[2020-09-17 14:08] LABS: Basophils % (A) 0 %; Eosinophils # (A) 0.2 k/uL (0-0.7); Eosinophils % (A) 1 %; HCT 39.1 % (34.0-46.0); HGB 13.5 gm/dL (11.4-16.0); Lymphocytes # (A) 1.1 k/uL (1.0-4.8); Lymphocytes % (A) 5 %; MCHC 34.6 g/dL (31.0-37.0); MCV 89.8 fL (80.0-100.0); Mean Platelet Volume 8.6; Monocytes # (A) 0.4 k/uL (0-1.0); Monocytes % (A) 2 %; Neutrophils # (A) 18.7 k/uL (1.3-7.7); Neutrophils % (A) 92 %; Platelet Count 228 k/uL (150-450); RBC 4.35 m/uL (3.80-5.40); RDW 13.1 % (11.5-15.5); WBC 20.3 k/uL (3.8-10.6)
[2020-09-17 14:16] LABS: Amorphous Sediment,Urine Few /hpf; Appearance,Urine Cloudy (Clear); Bacteria,Urine Rare /hpf; Bilirubin,Urine Negative (Negative); Blood,Urine Negative (Negative); Color,Urine Yellow; Glucose,Urine (UA) Negative (Negative); Ketones,Urine 4+ (Negative); Leukocyte Esterase,Urine Negative (Negative); Mucus,Urine Few /hpf; Nitrite,Urine Negative (Negative); Protein,Urine 1+ (Negative); Specific Gravity,Urine 1.023 (1.001-1.035); Squamous Epithelial Cell,Urine <1 /hpf (0-4); Urobilinogen,Urine <2.0 mg/dL (<2.0); WBC,Urine 1 /hpf (0-5)
[2020-09-17 14:18] LABS: African American GFR (CKD) >90 (>60 ml/min/1.73 sqM); Alcohol <10 mg/dL; Anion Gap 12 mmol/L; Blood Urea Nitrogen 7 mg/dL (7-17); Calcium 9.7 mg/dL (8.4-10.2); Carbon Dioxide 17 mmol/L (22-30); Chloride 107 mmol/L (98-107); Glucose 110 mg/dL (74-99); Magnesium 1.6 mg/dL (1.6-2.3); Non-African American GFR(CKD) >90 (>60 ml/min/1.73 sqM); Phosphorus 2.7 mg/dL (2.5-4.5); Potassium 3.7 mmol/L (3.5-5.1); Sodium 136 mmol/L (137-145)
[2020-09-17 14:54] VITALS: BP 139/87; PULSE 86; RESP 16; TEMP 96.7
--- NOTE | 2020-09-17 15:26 | US ---
EXAMINATION TYPE: US kidneys/renal and bladder DATE OF EXAM: 09/17/2020 COMPARISON: NONE CLINICAL HISTORY: Pelvic pain, third trimester, nausea and vomiting. EXAM MEASUREMENTS: Right Kidney: 12.0 x 6.5 x 4.8 cm Left Kidney: 12.0 x 6.1 x 5.9 cm Post Void Residual Volume: appears empty after bladder catheterization for urinary sample needed in [facility] Right Kidney: mild hydronephrosis; inferior pole multiple micro hyperechoic foci noted Left Kidney: No hydronephrosis or masses seen Bladder:very small amount in noted within bladder at exam's end IMPRESSION: Mild right-sided hydronephrosis.
--- NOTE | 2020-09-17 15:40 | US ---
EXAMINATION TYPE: US OB >= 14 wk fetus DATE OF EXAM: 09/17/2020 COMPARISON: US CLINICAL HISTORY: abdominal pain third trimester, pelvic pain, nausea and vomiting TECHNIQUE: Transabdominal (TA) GESTATIONAL AGE / DATING Physician Established: (28 weeks/2 days) EDC: 12/08/2020 Dates by LMP: (28 weeks/2 days) EDC: 12/08/2020 Dates by First Scan: (28 weeks/1 day) EDC: 12/09/2020 Dates by Current Scan: (28 weeks/0 days) EDC: 12/10/2020 Beta HCG (if available): NA SURVEY IUP: single PLACENTA: Fundal PREVIA: No Previa OZZY: 14.6 cm Normal CERVICAL LENGTH (transabdominal: norm > 3.0cm): 3.03 cm Four chamber heart: seen and wnl Stomach: seen and wnl Kidneys: seen and wnl Bladder: seen, well distended BIOMETRY PRESENTATION: Vertex LIE: Oblique BPD: 7.2 cm 28 weeks / 5 days HC: 26.1 cm 28 weeks / 3 days AC: 24.2 cm 28weeks / 3 days FL: 5.3 cm 28 weeks / 2 days ESTIMATED WEIGHT IN GRAMS: 1218.0 grams ESTIMATED WEIGHT IN LBS/OZ: 2 lbs. 6 oz. WEIGHT PERCENTAGE BASED ON ESTABLISHED DATES: 40.3% HC/AC: 1.08 Normal FL/AC: 22.0 Normal HEART RATE: 101 bpm and assessed x 2 RHYTHM: Normal Single, live IUP,28 weeks/0 days, EDC: 12/10/2020 , HR 101bpm (heart rate at lower limit of normal) IMPRESSION: Single viable intrauterine .
--- NOTE | 2020-09-17 16:25 | P.OBCN ---
History of Present Illness Consult date: 09/17/20 Reason for consult: medical complication Chief complaint: Abdominal pain History of present illness: Patient is a 25-year-old 2 para 1 at 28 weeks 2 days gestation who is seen today for intractable abdominal pain. Patient relates that her pain started approximately once 2 days ago and that the persistent nausea that she has had throughout the has grown significantly worse over the last day. He got to the point where she was so sick and in so much pain that she called 911 and was brought in via EMS. They had given her dose of Zofran IV and started an IV for hydration. Her Precis course was, complicated by a previous episode very similar to this about a month ago with my partner seeing her at that time and the pain apparently aced on the patient's observation just resolved. She relates that she does often have pain in her lower abdomen on a daily basis. And that she is continued to have nausea and vomiting through the . She does smoke marijuana and has been discussed on that this is not safe in and that it could actually be the cause of her nausea if she is smoking a lot of marijuana she could have hyper's emesis from the marijuana. She declines to believe that this is possible. A essentially reactive NST is noted. heart tones in the 150s with good variability. On her initial presentation were a few contractions noted that this did not seem to increase or change her pain necessarily. Most likely these are due to her dehydration. A fibronectin and an amnisure were collected and were both negative. Digital exam reveals her to be closed 50% effaced and ballotable. Multiple labs were ordered to try and determine what could potentially be causing her pain. A CMP was done with normal findings. The only abnormal to labs were 1 her CBC shows an elevated white blood cell count of 20 and 2 she has 4+ ketones in her urine. IV hydration has been initiated. 1 mg of Stadol was provided IV to try and control her pain and it seemed to control her pain very well once provided. It is unclear why she has such a significant white blood cell count. I did do a exam on her. Heart regular, lungs clear, extremities without pain. Her abdomen is diffusely tender particularly below the belly button between the belly button and her bladder but a where you push on her abdomen or touch her uterus is extremely tender. I could not truly detect rebound due to the nature of her tenderness. No other peritoneal signs were noted this time. Certainly appendicitis cannot be completely ruled out. This is however less likely due to the fact that she had what was essentially an identical attack about a month ago. She is not eating anything therefore it is less likely that she has gallstones but this again can't be completely ruled out. Ultrasound of the fetus shows no significant issues and kidney ultrasounds were normal for her. Her pain is not epigastric she has no tenderness or other issues in the epigastrium. I have an unclear source for her pain other than potentially musculoskeletal or tenderness from her being very sensitive to the baby movement which was what appeared they thought was going on with her last triage visit. Due to my concern over possible significant abnormalities that could not be completely ruled out, I did speak with maternal medicine and a decision to transfer her for further workup was made. Principally this was done in the off chance of the CAT scan did show an acute appendicitis it is highly unlikely that they would do the surgery here and that she would need to be at a center where should she deliver early like that they can take care of both she and the baby. This was arranged and initially she agreed to the transfer. However shortly thereafter she has decided that she is going to sign out AGAINST MEDICAL ADVICE and that she does not want to be transferred. We did offer to keep her and continue to hydrate her as she is significantly dehydrated and this needs to be addressed as well but she again refuses to stay. She is aware that she could potentially have major impact on her life and/or her baby's life since were still not completely certain as to what is going on. She understands she could , her baby could , her baby. Neurologic injuries and permanent neurologic damage she could have extended hospitalization and/or need for emergent surgery depending on what is really causing her pain. She has signed paperwork that states she understands all these risks and potentially others that could not be fully for seen and she is leaving AGAINST MEDICAL ADVICE. Past Medical History Past Medical History: No Reported History Additional Past Medical History / Comment(s): HS, History of Any Multi-Drug Resistant Organisms: None Reported Past Surgical History: No Surgical Hx Reported Additional Past Surgical History / Comment(s): cyst removed from buttocks two years ago, Smoking Status: Current every day smoker Medications and Allergies Home Medications Medication Instructions Recorded Confirmed Type Pnv,Calcium 72/Iron/Folic Acid 1 tab PO DAILY MDD 1 07/31/20 07/31/20 History [ Plus Tablet] Allergies Allergy/AdvReac Type Severity Reaction Status Date / Time No Known Allergies Allergy Verified 09/17/20 13:17 Exam Osteopathic Statement: *. No significant issues noted on an osteopathic structural exam other than those noted in the History and Physical/Consult. Vital Signs Temp Pulse Resp BP Pulse Ox 09/17/20 14:50 96.7 F L 86 16 139/87 100 Intake and Output 09/17/20 09/17/20 09/17/20 06:59 14:59 22:59 Other: Weight 92.079 kg Results Result Diagrams: 09/17/20 13:50 09/17/20 13:50 Abnormal Lab Results - Last 24 Hours (Table) 09/17/20 09/17/20 09/17/20 Range/Units 13:20 13:31 13:50 WBC 20.3 H (3.8-10.6) k/uL Neutrophils # 18.7 H (1.3-7.7) k/uL Sodium (137-145) mmol/L Carbon Dioxide (22-30) mmol/L Glucose (74-99) mg/dL POC Glucose (mg/dL) 120 H (75-99) mg/dL Urine Appearance (Clear) Urine Protein (Negative) Urine Ketones (Negative) Amorphous Sediment (None) /hpf Urine Bacteria (None) /hpf Urine Mucus (None) /hpf U Marijuana (THC) Screen Detected H (NotDetected) 09/17/20 09/17/20 Range/Units 13:50 14:00 WBC (3.8-10.6) k/uL Neutrophils # (1.3-7.7) k/uL Sodium 136 L (137-145) mmol/L Carbon Dioxide 17 L (22-30) mmol/L Glucose 110 H (74-99) mg/dL POC Glucose (mg/dL) (75-99) mg/dL Urine Appearance Cloudy H (Clear) Urine Protein 1+ H (Negative) Urine Ketones 4+ H (Negative) Amorphous Sediment Few H (None) /hpf Urine Bacteria Rare H (None) /hpf Urine Mucus Few H (None) /hpf U Marijuana (THC) Screen (NotDetected)
== END 2020-09-17 15:47 | disposition left against medical advice (07) ==
LOC: FBPOP 12:44
PROVIDERS: ATTEND Obstetrics & Gynecology
DX: O26.893 Other specified pregnancy related conditions, third trimester (principal); O21.2 Late vomiting of pregnancy; F12.90 Cannabis use, unspecified, uncomplicated; N13.30 Unspecified hydronephrosis; O99.323 Drug use complicating pregnancy, third trimester; Z3A.28 28 weeks gestation of pregnancy
CPT/HCPCS: 59025; 96360; 96361; 96372; 84112; 82731; 80048; 82310; 83735; 84100; 85025; 81001; 80306; 76805; 76770; G0463; G0480; J0595; 80320; 99214

== ENCOUNTER 2020-09-18 02:20 | Observation (INO) | payer OTHER ==
[2020-09-18 02:35] VITALS: PULSE 83
[2020-09-18] MEDS ORDERED: BUTORPHANOL 1 MG/ML 1 ML VIAL IV PRN (03:11)
[2020-09-18] MEDS ORDERED: DEXTROSE 5%-LACTATED RINGERS 1,000 ML IV SCH (03:15)
[2020-09-18 04:18] VITALS: BP 150/85; RESP 20; TEMP 97.9
[2020-09-18 04:51] LABS: Appearance,Urine Clear (Clear); Bacteria,Urine Rare /hpf; Bilirubin,Urine Negative (Negative); Blood,Urine Negative (Negative); Color,Urine Yellow; Glucose,Urine (UA) Negative (Negative); Ketones,Urine 4+ (Negative); Leukocyte Esterase,Urine Trace (Negative); Mucus,Urine Rare /hpf; Nitrite,Urine Negative (Negative); PH, Urine 6.5 (5.0-8.0); Protein,Urine 1+ (Negative); RBC,Urine <1 /hpf (0-5); Specific Gravity,Urine 1.025 (1.001-1.035); Squamous Epithelial Cell,Urine 1 /hpf (0-4); Urobilinogen,Urine <2.0 mg/dL (<2.0); WBC,Urine 6 /hpf (0-5)
== END 2020-09-18 06:45 | disposition left against medical advice (07) ==
LOC: FBPOP 02:20 → 4FBP 03:10
PROVIDERS: ADMIT Obstetrics & Gynecology; ATTEND Obstetrics & Gynecology
DX: O99.891 Other specified diseases and conditions complicating pregnancy (principal); N13.2 Hydronephrosis with renal and ureteral calculous obstruction; O16.3 Unspecified maternal hypertension, third trimester; O99.283 Endocrine, nutritional and metabolic diseases complicating pregnancy, third trimester; E86.0 Dehydration; Z53.29 Procedure and treatment not carried out because of patient's decision for other reasons; O99.713 Diseases of the skin and subcutaneous tissue complicating pregnancy, third trimester; L73.2 Hidradenitis suppurativa; Z98.890 Other specified postprocedural states; O99.333 Smoking (tobacco) complicating pregnancy, third trimester; F17.200 Nicotine dependence, unspecified, uncomplicated; Z3A.28 28 weeks gestation of pregnancy
CPT/HCPCS: 59025; 96360; 96374; 84112; 81001; G0463; G0378; J0595; 99214

== ENCOUNTER 2020-09-18 21:15 | Inpatient (IN) | payer OTHER ==
--- NOTE | 2020-09-18 22:12 | CT ---
EXAMINATION TYPE: CT abdomen pelvis wo con DATE OF EXAM: 09/18/2020 COMPARISON: None HISTORY: RLQ pain and vomiting, pt [address] DLP: 721.2 mGycm Automated exposure control for dose reduction was used. Images obtained from the diaphragm to the floor the pelvis without contrast. FINDINGS: Lung bases are clear. There is no pleural effusion. Heart size is normal. There is no pericardial eff usion. Liver spleen stomach pancreas gallbladder appear normal. Bile ducts are not dilated. There is intrauterine gestational sac with a single fetus. There is a breech presentation. Placenta i s on the fundus of the uterus. There is no adrenal mass. Kidneys have normal size. There is 6 mm calculus lower pole right kidney. T here is 1 mm calculus lower pole right kidney. There is some fullness of the right ureter. There is 5 mm calcification in the pelvis posteriorly on the right side that is probably in the distal right ur eter. Urinary bladder is almost empty. There is no inguinal hernia. There is no mesenteric edema. There is no ascites or free air. Appendix is posterior and appears norm al. There is no sign of a bowel obstruction. Lumbar vertebra have normal spacing and alignment. Posterior elements are intact. Bony pelvis is inta ct. Hip joints are intact. IMPRESSION: Right-sided renal calculi. 5 mm obstructing calculus at the right ureterovesical junction with mild r ight-sided hydronephrosis and hydroureter. Normal appendix.
[2020-09-18] MEDS ORDERED: DEXTROSE 5%-0.45% NACL 1,000 ML IV SCH (22:15)
[2020-09-18 22:26] LABS: Amorphous Sediment,Urine Rare /hpf; Appearance,Urine Cloudy (Clear); Bacteria,Urine Rare /hpf; Bilirubin,Urine Negative (Negative); Blood,Urine Negative (Negative); Color,Urine Yellow; Glucose,Urine (UA) Negative (Negative); Ketones,Urine 4+ (Negative); Leukocyte Esterase,Urine Trace (Negative); Mucus,Urine Few /hpf; Nitrite,Urine Negative (Negative); PH, Urine 6.5 (5.0-8.0); Protein,Urine Trace (Negative); RBC,Urine 2 /hpf (0-5); Squamous Epithelial Cell,Urine 6 /hpf (0-4); WBC,Urine 4 /hpf (0-5)
[2020-09-18] MEDS: DEXTROSE 5%-LACTATED RINGERS 1,000 ML IV SCH ×2 (22:28→23:22)
[2020-09-18 22:36] LABS: Protein/Creatinine Ratio,Urine 0.163
--- NOTE | 2020-09-18 22:50 | P.HPOB ---
History of Present Illness H&P Date: 09/18/20 Chief Complaint: Intractable pain, nausea and vomiting, dehydration Patient returns today following 2 separate triage visits in which she signed out AGAINST MEDICAL ADVICE. She had severe per [place] right sided and suprapubic pain that has gotten worse through the day. She has no other peritoneal signs or symptoms there is no rebound, rigidity or guarding necessarily. An ultrasound done yesterday showed mild hydronephrosis on the right side but no other gross findings. Due to concern over possible while unlikely appendicitis, 8 CAT scan was ordered showing what appears to be a 6 mm right ureteral stone that is possibly occluding. Her pain level tonight is 9 out of 10. There was a major episode with her significant other last night or early this morning rather and he is not allowed in the hospital due to his behavior last night. She is aware of this. She also's continues have 4+ ketones and believes that she has drank almost nothing today. We will give her fluid boluses and then IV hydration as well as IV Zofran for her nausea and pain medicine to try and control her pain. Urology has been consulted. We will strain her urine. At this time all of her questions are answered for her. A category 1 tracing is noted and there are no signs of contractions at this time. She voices no other complaints at this time. On physical exam vital signs to show mild hypertension was likely due to pain. Pre-clamped with labs have been ordered as a precaution. If her white blood cell count is still elevated tonight will potentially add an antibiotic to her current fluid loads. Her heart is otherwise regular and her lungs are clear. Abdomen soft. There is predominantly right sided tenderness and suprapubic tenderness. There is no swelling in her extremities and her deep tendon reflexes are 1+. Assessment intractable pain at 28 weeks with renal stones and dehydration Plan IV hydration, urology consult, pain control and straining of her urine. Past Medical History Past Medical History: No Reported History Additional Past Medical History / Comment(s): HS, History of Any Multi-Drug Resistant Organisms: None Reported Past Surgical History: No Surgical Hx Reported Additional Past Surgical History / Comment(s): cyst removed from buttocks two years ago, Past Anesthesia/Blood Transfusion Reactions: No Reported Reaction Smoking Status: Current every day smoker - Past Family History Mother Family Medical History: No Reported History Medications and Allergies Home Medications Medication Instructions Recorded Confirmed Type Pnv,Calcium 72/Iron/Folic Acid 1 tab PO DAILY MDD 1 07/31/20 09/18/20 History [ Plus Tablet] Allergies Allergy/AdvReac Type Severity Reaction Status Date / Time No Known Allergies Allergy Verified 09/18/20 21:34 Exam Osteopathic Statement: *. No significant issues noted on an osteopathic structural exam other than those noted in the History and Physical/Consult. Intake and Output 09/18/20 09/18/20 09/18/20 06:59 14:59 22:59 Other: Weight 92.079 kg Results Abnormal Lab Results - Last 24 Hours (Table) 09/18/20 Range/Units 21:58 Urine Appearance Cloudy H (Clear) Urine Protein Trace H (Negative) Urine Ketones 4+ H (Negative) Ur Leukocyte Esterase Trace H (Negative) Ur Squamous Epith Cells 6 H (0-4) /hpf Amorphous Sediment Rare H (None) /hpf Urine Bacteria Rare H (None) /hpf Urine Mucus Few H (None) /hpf
[2020-09-18 22:51] LABS: Basophils % (A) 0 %; Eosinophils # (A) 0.1 k/uL (0-0.7); Eosinophils % (A) 0 %; HCT 38.5 % (34.0-46.0); HGB 13.2 gm/dL (11.4-16.0); Lymphocytes # (A) 1.1 k/uL (1.0-4.8); Lymphocytes % (A) 6 %; MCH 31.1 pg (25.0-35.0); MCHC 34.4 g/dL (31.0-37.0); MCV 90.5 fL (80.0-100.0); Mean Platelet Volume 8.3; Monocytes # (A) 0.7 k/uL (0-1.0); Monocytes % (A) 4 %; Neutrophils # (A) 16.3 k/uL (1.3-7.7); Neutrophils % (A) 89 %; Platelet Count 209 k/uL (150-450); RBC 4.26 m/uL (3.80-5.40); RDW 12.5 % (11.5-15.5); WBC 18.3 k/uL (3.8-10.6)
[2020-09-18 23:03] LABS: ALT 9 U/L (4-34); AST 16 U/L (14-36); African American GFR (CKD) >90 (>60 ml/min/1.73 sqM); Blood Urea Nitrogen 7 mg/dL (7-17); LDH 358 U/L (313-618); Non-African American GFR(CKD) >90 (>60 ml/min/1.73 sqM); Uric Acid 5.5 mg/dL (3.7-7.4)
[2020-09-18] MEDS: BUTORPHANOL 1 MG/ML 1 ML VIAL IV PRN (23:15)
[2020-09-18] MEDS: ONDANSETRON 4 MG/2 ML VIAL IVP PRN (23:15)
[2020-09-19] MEDS: BUTORPHANOL 1 MG/ML 1 ML VIAL IV PRN ×7 (01:18→15:54)
[2020-09-19] MEDS: LACTATED RINGERS 1,000 ML IV SCH ×2 (08:00→16:16)
[2020-09-19] MEDS: ONDANSETRON 4 MG/2 ML VIAL IVP PRN ×2 (08:36→15:54)
[2020-09-19] MEDS ORDERED: FAMOTIDINE 20 MG/2 ML VIAL IV SCH (09:00)
--- NOTE | 2020-09-19 10:34 | P.PN ---
Progress Note - Text Progress Note Date: 09/19/20 Patient seen and evaluated. Overall she stable. Her color is much better she does look better now that she is hydrated. She still complains of significant pain. Urology did see her and has scheduled for her to have a procedure today to try and remove the stone. She initially did not want to do this she wanted do an outpatient but after several lengthy discussions between nursing and myself and she she has agreed to have it done today as she would just be back sometime this weekend and severe pain as this continues to be a problem for her. All questions are answered for her heart tones have been excellent for 28 weeks and there is no other issues. She'll need to be monitors for at least sometime after surgery make sure is no other problems or concerns but once urology believe she can be discharged home that would be fine from my standpoint. We'll review with who is distribution operations supervisor this weekend and then likely plan to see her next week.
[2020-09-19] MEDS ORDERED: IV FLUID CONTINUATION 1,000 ML IV ONE (17:14)
--- NOTE | 2020-09-19 17:53 | P.GSCN ---
History of Present Illness Consult date: 09/19/20 Reason for Consult: right ureteral calculi History of present illness: Ms Keating is a 25 yo female with hx of 5 mm right distal ureteral stone. She is currently 28 weeks . She's had 3 ED presentation secondary to her right lower quadrant abdominal pain, nausea and vomiting. She had a CT scan done yesterday to rule out appendicitis, CT negative for appendicitis but showed a 5 mm right distal stone. No previous history of stones, denies any gross hematuria or dysuria. Had a prolonged discussion with her given her multiple ED presentation secondary to her stone the option of continued observation, versus ureteroscopy. Discussed with her the risk and benefit of each approach. Given her multiple ED presentation and intractable pain, ureteroscopy with holmium laser is an acceptable option. Discussed with her that given her there is a risk to the fetus and to her from the surgery. Discussed with her also the potential of premature labor. Discussed with her also the potential of using fluoroscopy, and the carcinogenic effect on the fetus. I also discussed with her risk from surgery which includes bleeding infection and injury to the ureter. She understood all the risk and agreed to proceed with a right-sided ureteroscopy with holmium laser, possible stent Review of Systems - Constitutional Denies fever, Denies weight loss - Cardiovascular Denies chest pain, Denies shortness of breath - Respiratory Denies cough, Denies 7 - Gastrointestinal Reports abdominal pain, Reports nausea, Reports vomiting - Genitourinary Genitourinary: Reports flank pain, Denies dysuria, Denies hematuria - Neurological Denies headaches, Denies syncope - Hematologic/Lymphatic Denies easy bleeding, Denies easy bruising Past Medical History Past Medical History: No Reported History, Thyroid Disorder Additional Past Medical History / Comment(s): HS, History of Any Multi-Drug Resistant Organisms: None Reported Past Surgical History: No Surgical Hx Reported Additional Past Surgical History / Comment(s): cyst removed from buttocks two years ago, Past Anesthesia/Blood Transfusion Reactions: No Reported Reaction Past Psychological History: Anxiety, Bipolar, Depression Smoking Status: Current every day smoker Past Alcohol Use History: None Reported Past Drug Use History: Marijuana Additional Drug Use History / Comment(s): Smoked 2 days ago - Past Family History Mother Family Medical History: No Reported History Medications and Allergies Home Medications Medication Instructions Recorded Confirmed Type Pnv,Calcium 72/Iron/Folic Acid 1 tab PO DAILY MDD 1 07/31/20 09/18/20 History [ Plus Tablet] Allergies Allergy/AdvReac Type Severity Reaction Status Date / Time No Known Allergies Allergy Verified 09/19/20 17:19 Surgical - Exam Vital Signs Temp Pulse Resp BP 97.5 F L 70 18 159/91 09/18/20 22:59 09/18/20 22:59 09/18/20 22:59 09/18/20 22:59 - General well developed, well nourished, moderate distress, moderate pain - Eyes PERRL, normal ocular movement - ENT normal nares, normal mucosa - Respiratory normal expansion, normal respiratory effort - Psychiatric oriented to time, oriented to person, oriented to place, speech is normal Results - Labs 09/18/20 22:20 09/18/20 22:20 Abnormal Lab Results - Last 24 Hours (Table) 09/18/20 09/18/20 Range/Units 21:58 22:20 WBC 18.3 H (3.8-10.6) k/uL Neutrophils # 16.3 H (1.3-7.7) k/uL Urine Appearance Cloudy H (Clear) Urine Protein Trace H (Negative) Urine Ketones 4+ H (Negative) Ur Leukocyte Esterase Trace H (Negative) Ur Squamous Epith Cells 6 H (0-4) /hpf Amorphous Sediment Rare H (None) /hpf Urine Bacteria Rare H (None) /hpf Urine Mucus Few H (None) /hpf Diabetes panel 09/18/20 Range/Units 22:20 BUN 7 (7-17) mg/dL Creatinine 0.62 (0.52-1.04) mg/dL AST 16 (14-36) U/L ALT 9 (4-34) U/L Pituitary panel 09/18/20 Range/Units 22:20 BUN 7 (7-17) mg/dL Creatinine 0.62 (0.52-1.04) mg/dL Adrenal panel 09/18/20 Range/Units 22:20 BUN 7 (7-17) mg/dL Creatinine 0.62 (0.52-1.04) mg/dL AST 16 (14-36) U/L ALT 9 (4-34) U/L Assessment and Plan Assessment: 25 yo female with hx of 5mm right distal stone -OR for right ureteroscopy, with holmium laser lithotripsy, stone basketing and possible stent placement
[2020-09-19] MEDS ORDERED: ONDANSETRON 4 MG/2 ML VIAL ONE (18:09)
[2020-09-19] MEDS ORDERED: LACTATED RINGERS 1,000 ML IV ONE (19:13)
--- NOTE | 2020-09-19 19:14 | P.OP ---
Date of Procedure: 09/19/20 Preoperative Diagnosis: Right ureteral calculi Postoperative Diagnosis: Same Procedure(s) Performed: Cystoscopy, right ureteroscopy, holmium laser lithotripsy Implants: None Anesthesia: spinal Surgeon: Jase James Estimated Blood Loss (ml): 1 Pathology: none sent Condition: stable Disposition: PACU Indications for Procedure: Ms Keating is a 25 yo female with hx of 5 mm right distal ureteral stone. She is currently 28 weeks . She's had 3 ED presentation secondary to her right lower quadrant abdominal pain, nausea and vomiting. She had a CT scan done yesterday to rule out appendicitis, CT negative for appendicitis but showed a 5 mm right distal stone. No previous history of stones, denies any gross hematuria or dysuria. Had a prolonged discussion with her given her multiple ED presentation secondary to her stone the option of continued observation, versus ureteroscopy. Discussed with her the risk and benefit of each approach. Given her multiple ED presentation and intractable pain, ureteroscopy with holmium laser is an acceptable option. Discussed with her that given her there is a risk to the fetus and to her from the surgery. Discussed with her also the potential of premature labor. Discussed with her also the potential of using fluoroscopy, and the carcinogenic effect on the fetus. I also discussed with her risk from surgery which includes bleeding infection and injury to the ureter. She understood all the risk and agreed to proceed with a right-sided ureteroscopy with holmium laser, possible stent Operative Findings: Dilated ureter and collecting system. Stone encountered in the renal pelvis Description of Procedure: Patient was brought to the operating room, spinal anesthesia was induced. She was prepped and draped in sterile fashion and laced in dorsal lithotomy position. A cystoscopy fitted with a 21-[place]ux[place] sheath was inserted per urethra, cystoscopy was performed showed no abnormality within the bladder. Attention was then carried to the right ureteral orifice, and a sensor wire was advanced through the scope and up the right ureteral orifice. Next the semirigid ureteroscope was inserted. Of note the distal portion of the ureter was narrowed, but along the mid ureter it was severely dilated, I was unable to advance the semirigid ureteroscope into the proximal ureter.. At this time the semirigid ureteroscope was withdrawn, pullback ureteroscopy showed no ureteral stone or injury to the ureter. Next a flexible ureteroscope was passed over the wire and into the kidney, renoscopy showed a stone within the renal p layne. Of note the renal pelvis was severely dilated, 40 mL was drained. The stone was fragmented using the holmium laser. Stone encountered in the renal pelvis was most likely the distal ureteral stone but it migrated up during wire placement or ureteroscopy, given the degree of ureteral dilation. Repeat renoscopy showed no sizable fragments or any additional stones. Pullback ureteroscopy of the proximal ureter showed no stones along the proximal ureter, there was no injury or any stone fragments in the remaining ureter. There was no significant ureteral edema thus a stent was not placed. The bladder was emptied at the end of the case, the patient was taken to recovery in stable condition
[2020-09-19] MEDS ORDERED: ACETAMINOPHEN TAB 500 MG TAB PO PRN (21:06)
[2020-09-19 22:05] VITALS: RESP 16
[2020-09-19 22:39] VITALS: BP 147/84; PULSE 61; TEMP 98.2
--- NOTE | 2020-09-21 08:41 | P.DS ---
Providers Date of admission: 09/19/20 08:27 Expected date of discharge: 09/19/20 Attending physician: Dylon West Consults: 09/18/20 22:43 Consult Physician Stat Consulting Provider: Jase James Consult Reason/Comments: Kidney Stones Do you want consulting provider notified?: Already Contacted Primary care physician: Stated None Hospital Course: Please see H&P for details of pt. admission. Pt. underwent surgery by Dr. James to remove kidney stone. She was very anxious to leave right after surgery. Per Dr. West, I instructed nursing staff that she was only to be discharged if she was cleared by Dr. James. They spoke with Dr. James and got ok for discharge from him after she received a dose of IV Kefzol and completed her recovery. She was only complaining of mild discomfort at the spinal site. She was instructed to follow up with Dr. West this week and to also follow up with Dr. James. Procedures: Cystoscopy with laser lithotripsy L. renal calculus Patient Condition at Discharge: Stable Plan - Discharge Summary New Discharge Prescriptions: No Action Pnv,Calcium 72/Iron/Folic Acid [ Plus Tablet] 1 tab PO DAILY MDD 1 HYDROcodone/APAP 5-325MG [[place] 5-325] 1 tab PO Q6HR PRN 3 Days #12 tab PRN Reason: Pain Discharge Medication List Pnv,Calcium 72/Iron/Folic Acid [ Plus Tablet] 1 tab PO DAILY MDD 1 07/31/20 [History] HYDROcodone/APAP 5-325MG [[place] 5-325] 1 tab PO Q6HR PRN 3 Days #12 tab 09/20/20 [Rx] Follow up Appointment(s)/Referral(s): Dylon West DO [Doctor of Osteopathic Medicine] - 1 Week Jase James MD [STAFF PHYSICIAN] - 1 Week Discharge Disposition: HOME SELF-CARE
== END 2020-09-19 22:40 | disposition home or self-care (01) | DRG 818 ==
LOC: FBPOP 21:15 → 4FBP 22:51 → OBSVTOIN 09-19 08:27
PROVIDERS: ADMIT Obstetrics & Gynecology; ATTEND Obstetrics & Gynecology
PROC: 0TJB8ZZ Inspection of Bladder, Via Natural or Artificial Opening Endoscopic (ICD-10-PCS; principal; 2020-09-19 18:13)
PROC: 0TC38ZZ Extirpation of Matter from Right Kidney Pelvis, Via Natural or Artificial Opening Endoscopic (ICD-10-PCS; principal; 2020-09-19 18:13)
DX: O26.833 Pregnancy related renal disease, third trimester (principal); O16.3 Unspecified maternal hypertension, third trimester; N13.2 Hydronephrosis with renal and ureteral calculous obstruction; O99.283 Endocrine, nutritional and metabolic diseases complicating pregnancy, third trimester; I10 Essential (primary) hypertension; F31.9 Bipolar disorder, unspecified; F17.200 Nicotine dependence, unspecified, uncomplicated; E86.0 Dehydration; O99.343 Other mental disorders complicating pregnancy, third trimester; O99.333 Smoking (tobacco) complicating pregnancy, third trimester; Z3A.28 28 weeks gestation of pregnancy; Z87.442 Personal history of urinary calculi
CPT/HCPCS: 59025; 74176; 81001; 82565; 82570; 83615; 84156; 84450; 84460; 84520; 84550; 85025; 99213

== ENCOUNTER 2020-09-20 03:48 | Observation (INO) | payer OTHER ==
[2020-09-20] MEDS ORDERED: BUTORPHANOL 1 MG/ML 1 ML VIAL IV ONE (04:24)
[2020-09-20 04:31] LABS: Appearance,Urine Clear (Clear); Bacteria,Urine Rare /hpf; Bilirubin,Urine Negative (Negative); Blood,Urine Moderate (Negative); Color,Urine Yellow; Glucose,Urine (UA) Negative (Negative); Ketones,Urine 3+ (Negative); Leukocyte Esterase,Urine Large (Negative); Mucus,Urine Rare /hpf; Nitrite,Urine Negative (Negative); Protein,Urine Trace (Negative); RBC,Urine >182 /hpf (0-5); Specific Gravity,Urine 1.015 (1.001-1.035); Squamous Epithelial Cell,Urine 2 /hpf (0-4); Urobilinogen,Urine <2.0 mg/dL (<2.0); WBC,Urine 29 /hpf (0-5)
[2020-09-20] MEDS: LACTATED RINGERS 1,000 ML IV SCH ×2 (04:31→07:58)
[2020-09-20] MEDS ORDERED: HYDROcodone/APAP 5-325MG 1 EACH TAB PO PRN (04:54)
--- NOTE | 2020-09-20 05:26 | P.HPOB ---
History of Present Illness H&P Date: 09/20/20 Chief Complaint: Abdominal pain and bleeding This is a 25-year-old female 2 para 1 with an estimated date of confinement of 12/08/2020, estimated gestational age of 28-4/7 weeks, who presented back to labor and delivery by EMS complaining of severe lower abdominal and mid umbilical pain. She was just discharged last night at about 11:00 PM after recovering from surgery for kidney stones. At that time she had told the nurse that she was going to leave regardless of whether she was discharged and she would leave AMA if she was not discharged. She had a cystoscopy with right ureteroscopy and holmium laser lithotripsy performed by Dr. James last evening. She states she is noticing bleeding every time she went to the bathroom. She denies any gross blood in her pad. She states her abdominal pain is right around her umbilicus and her lower abdomen in kind of an inverted T pattern. She also has some pain going down her right leg. She denies any back pain at this time. She denies any vomiting but has stated that she did feel nauseated. In triage she is not noted to showing any contractions. Her cervix by nursing staff is 1 cm thick and high. No blood is noted on the glove. Obstetrical history: . History of 1 vaginal delivery induced due to heart arrhythmia. Review of Systems Constitutional: Denies chills, Denies fever Eyes: denies blurred vision, denies pain Ears, nose, mouth and throat: Denies headache, Denies sore throat Cardiovascular: Denies chest pain, Denies shortness of breath Respiratory: Denies cough Gastrointestinal: Reports abdominal pain, Reports nausea, Denies vomiting Genitourinary: Reports hematuria, Reports kidney stones, Reports pelvic pain, Reports , Reports urgency, Denies vaginal discharge Musculoskeletal: Denies low back pain Integumentary: Denies pruritus, Denies rash Neurological: Denies numbness, Denies weakness Past Medical History Additional Past Medical History / Comment(s): Hydradenitis suppertiva; Kidney stones History of Any Multi-Drug Resistant Organisms: None Reported Additional Past Surgical History / Comment(s): cyst removed from buttocks two years ago, cystoscopy with right ureteroscopy and holmium laser lithotripsy on 09/19/2020 Past Anesthesia/Blood Transfusion Reactions: No Reported Reaction Past Psychological History: No Psychological Hx Reported Smoking Status: Current every day smoker Past Alcohol Use History: None Reported Past Drug Use History: None Reported - Past Family History Mother Family Medical History: No Reported History Medications and Allergies Home Medications Medication Instructions Recorded Confirmed Type Pnv,Calcium 72/Iron/Folic Acid 1 tab PO DAILY MDD 1 07/31/20 09/20/20 History [ Plus Tablet] Allergies Allergy/AdvReac Type Severity Reaction Status Date / Time No Known Allergies Allergy Verified 09/20/20 03:58 Exam Osteopathic Statement: *. No significant issues noted on an osteopathic structural exam other than those noted in the History and Physical/Consult. Intake and Output 09/19/20 09/19/20 09/20/20 14:59 22:59 06:59 Other: Weight 92.079 kg Gen.: Well-developed well-nourished female in no acute distress at this time however she just received pain medication HEENT: Within normal limits Heart: Regular rate and rhythm Lungs: Clear to auscultation bilaterally Abdomen: Mild tenderness in the periumbilical and suprapubic area. Abdomen is soft. Back shows no flank pain. Extremities: Negative Homans Pelvic exam per nursing staff is 1 cm thick and high heart tones: Category 1 contractions noted Results Abnormal Lab Results - Last 24 Hours (Table) 09/20/20 Range/Units 04:15 Urine Protein Trace H (Negative) Urine Ketones 3+ H (Negative) Urine Blood Moderate H (Negative) Ur Leukocyte Esterase Large H (Negative) Urine RBC >182 H (0-5) /hpf Urine WBC 29 H (0-5) /hpf Urine Bacteria Rare H (None) /hpf Urine Mucus Rare H (None) /hpf Assessment and Plan (1) 28 weeks gestation of Current Visit: Yes Status: Acute Code(s): Z3A.28 - 28 WEEKS GESTATION OF SNOMED Code(s): 18479841 (2) Renal calculi Current Visit: No Status: Acute Code(s): N20.0 - CALCULUS OF KIDNEY SNOMED Code(s): 09188398 Plan: Admission as a BV for pain control and IV antibiotics. Dr. James was consulted by phone by OB nurse and he did give orders for [place] and antibiotics. He did recommend a bladder scan to make sure she does not have a lot of urinary retention. He will follow today. Will perform NST every shift or when necessary. Regular diet.
--- NOTE | 2020-09-20 05:32 | P.MSEPDOC ---
Presenting Problems - Arrival Data Date of Arrival on Unit: 09/20/20 Time of Arrival on Unit: 03:48 Mode of Transport: EMS - Complaint OB-Reason for Admission/Chief Complaint: Pain Comment: Abdominal pain. Medical History - Gestational Age Gestational Age by ESSIE (wks/days): 28 Weeks and 6 Days Review of Systems - Review of Systems Constitutional: No problems Breast: No problems ENT: No problems Cardiovascular: No problems Respiratory: No problems Gastrointestinal: No problems Genitourinary: No problems Musculoskeletal: No problems Neurological: No problems Skin: No problems Medical Screen Scoring (Pre) - Assessment - Baby A Baseline FHR: 125 Heart Rate - NICHD Category: Category I (Normal) = 0 NST: Reactive Position: N/A - Total Score - Baby A Total Score - Baby A: 0 - Level of Risk - Baby A Level of Risk - Baby A: Low (0-5) Physician Notification (Pre) - Physician Notified Physician Notified Date: 09/20/20 Physician Notified Time: 05:00 - Notification Comment Comment: Pt seen by Dr. Corley in Triage. Disposition - Disposition OB Disposition: Admit, Observe I agree with the RN Medical Screening Exam: Yes Case reviewed; plan agreed upon as documented in EMR&OBIX.: Yes Diagnosis: LOWER ABDOMINAL PAIN, UNSPECIFIED Additional Diagnoses: History of left nephrolithiasis
[2020-09-20 05:34] VITALS: BP 132/74; PULSE 64; RESP 16; TEMP 96.2
[2020-09-20 05:57] LABS: Basophils % (A) 0 %; Eosinophils # (A) 0.2 k/uL (0-0.7); Eosinophils % (A) 1 %; HCT 35.5 % (34.0-46.0); HGB 12.1 gm/dL (11.4-16.0); Lymphocytes % (A) 8 %; MCH 31.2 pg (25.0-35.0); MCHC 34.2 g/dL (31.0-37.0); MCV 91.3 fL (80.0-100.0); Mean Platelet Volume 8.6; Monocytes # (A) 0.5 k/uL (0-1.0); Monocytes % (A) 4 %; Neutrophils # (A) 11.1 k/uL (1.3-7.7); Neutrophils % (A) 87 %; Platelet Count 196 k/uL (150-450); RBC 3.89 m/uL (3.80-5.40); RDW 13.1 % (11.5-15.5); WBC 12.7 k/uL (3.8-10.6)
[2020-09-20 06:06] LABS: African American GFR (CKD) >90 (>60 ml/min/1.73 sqM); Blood Urea Nitrogen 5 mg/dL (7-17); Non-African American GFR(CKD) >90 (>60 ml/min/1.73 sqM)
[2020-09-20] MEDS ORDERED: ONDANSETRON 4 MG/2 ML VIAL IVP PRN (06:52)
--- NOTE | 2020-09-20 20:13 | P.GSCN ---
History of Present Illness Consult date: 09/20/20 History of present illness: Ms Keating is a 25 yo female with hx of 5 mm right distal ureteral stone. She is currently 28 weeks . She's had multiple ED presentation secondary to her right lower quadrant abdominal pain, nausea and vomiting. She had a CT scan done on 09/18 to rule out appendicitis, CT negative for appendicitis but showed a 5 mm right distal stone. Patient underwent right sided ureteroscopy yesterday, with holmium laser lithotripsy. She was discharged home post operatively. She presented 3 hours later with intractable pain with gross hem aturia. Denies any fever/chills. She was evaluated by Dr Corley and there was no concern of labor. Urology was counsulted for her pain. This am her pain resolved with [place], she denies any urinary issues of any gross hematuria. Denies any N/V. Review of Systems - Constitutional Denies fever, Denies weight loss - Cardiovascular Denies chest pain, Denies shortness of breath - Respiratory Denies cough, Denies 7 - Gastrointestinal Reports abdominal pain, Denies nausea, Denies vomiting - Genitourinary Genitourinary: Reports flank pain, Reports hematuria, Reports kidney stones, Denies dysuria - Neurological Denies headaches, Denies syncope Past Medical History Past Medical History: No Reported History, Thyroid Disorder Additional Past Medical History / Comment(s): Hydradenitis suppertiva; Kidney stones History of Any Multi-Drug Resistant Organisms: None Reported Past Surgical History: No Surgical Hx Reported Additional Past Surgical History / Comment(s): cyst removed from buttocks two years ago, cystoscopy with right ureteroscopy and holmium laser lithotripsy on 09/19/2020 Past Anesthesia/Blood Transfusion Reactions: No Reported Reaction Past Psychological History: No Psychological Hx Reported Smoking Status: Current every day smoker Past Alcohol Use History: None Reported Past Drug Use History: None Reported Additional Drug Use History / Comment(s): Smoked today. - Past Family History Mother Family Medical History: No Reported History Medications and Allergies Home Medications Medication Instructions Recorded Confirmed Type Pnv,Calcium 72/Iron/Folic Acid 1 tab PO DAILY MDD 1 07/31/20 09/20/20 History [ Plus Tablet] HYDROcodone/APAP 5-325MG [[place] 1 tab PO Q6HR PRN 3 Days #12 tab 02/20/21 Rx 5-325] Allergies Allergy/AdvReac Type Severity Reaction Status Date / Time No Known Allergies Allergy Verified 09/20/20 03:58 Surgical - Exam Vital Signs Temp Pulse Resp BP Pulse Ox 96.2 F L 63 16 132/74 100 09/20/20 05:29 09/20/20 05:29 09/20/20 05:29 09/20/20 05:29 09/20/20 05:29 - General well developed, well nourished, no distress, no pain - Eyes PERRL, normal ocular movement - ENT normal nares, normal mucosa - Respiratory normal expansion, normal respiratory effort - Abdomen Abdomen: soft, non tender - Psychiatric oriented to time, oriented to person, oriented to place, speech is normal Results - Labs 09/20/20 05:38 09/20/20 05:38 Abnormal Lab Results - Last 24 Hours (Table) 09/20/20 09/20/20 09/20/20 Range/Units 04:15 05:38 05:38 WBC 12.7 H (3.8-10.6) k/uL Neutrophils # 11.1 H (1.3-7.7) k/uL BUN 5 L (7-17) mg/dL Urine Protein Trace H (Negative) Urine Ketones 3+ H (Negative) Urine Blood Moderate H (Negative) Ur Leukocyte Esterase Large H (Negative) Urine RBC >182 H (0-5) /hpf Urine WBC 29 H (0-5) /hpf Urine Bacteria Rare H (None) /hpf Urine Mucus Rare H (None) /hpf Diabetes panel 09/20/20 Range/Units 05:38 BUN 5 L (7-17) mg/dL Creatinine 0.65 (0.52-1.04) mg/dL Pituitary panel 09/20/20 Range/Units 05:38 BUN 5 L (7-17) mg/dL Creatinine 0.65 (0.52-1.04) mg/dL Adrenal panel 09/20/20 Range/Units 05:38 BUN 5 L (7-17) mg/dL Creatinine 0.65 (0.52-1.04) mg/dL Assessment and Plan Assessment: Ms Keating is a 25 yo female with hx of 5 mm right distal ureteral stone. She is currently 28 weeks . She's had multiple ED presentation secondary to her right lower quadrant abdominal pain, nausea and vomiting. She had a CT scan done on 09/18 to rule out appendicitis, CT negative for appendicitis but showed a 5 mm right distal stone. Patient underwent right sided ureteroscopy yesterday, with holmium laser lithotripsy. Presented back to the ED with flank pain, pain resolved with po pain medications. asymptomatic today. -Ok for discharge from urology standpoint, pain and gross hematuria secondary to her recent procedure. Will discharge home with po pain medications
--- NOTE | 2020-09-21 08:48 | P.DS ---
Providers Date of admission: 09/20/20 05:24 Expected date of discharge: 09/20/20 Attending physician: Ira Corley Consults: 09/20/20 05:26 Consult Physician Urgent Consulting Provider: Jase James Consult Reason/Comments: Kidney stones, hematuria Do you want consulting provider notified?: Yes Primary care physician: Stated None - Discharge Diagnosis(es) (1) 28 weeks gestation of Status: Acute (2) Renal calculi Status: Acute Hospital Course: This is a 25 y.o. female at approximately 28 weeks who presented back to the hospital with severe abdominal pain and bleeding. It was determined that her bleeding was from her urine. She was given pain medication and was seen by Dr. James who did her surgery the day before. He put her on [place] for pain and continued her antibiotics. She was much more comfortable and requested discharge home. This was cleared by Dr. James and he gave her prescriptions for [place] and Keflex. NSTs were reactive with no contractions. Her cervical exam per nursing was 1 cm/thick/high. Patient Condition at Discharge: Stable Plan - Discharge Summary New Discharge Prescriptions: New HYDROcodone/APAP 5-325MG [[place] 5-325] 1 tab PO Q6HR PRN 3 Days #12 tab PRN Reason: Pain No Action Pnv,Calcium 72/Iron/Folic Acid [ Plus Tablet] 1 tab PO DAILY MDD 1 Discharge Medication List Pnv,Calcium 72/Iron/Folic Acid [ Plus Tablet] 1 tab PO DAILY MDD 1 07/31/20 [History] HYDROcodone/APAP 5-325MG [[place] 5-325] 1 tab PO Q6HR PRN 3 Days #12 tab 09/20/20 [Rx] Follow up Appointment(s)/Referral(s): Dylon West DO [Doctor of Osteopathic Medicine] - 1 Week Jase James MD [STAFF PHYSICIAN] - 1 Week Activity/Diet/Wound Care/Special Instructions: Activity as tolerated. Diet as tolerated. Return to hospital for regular contractions, severe abdominal pain, decreased movement. Discharge Disposition: HOME SELF-CARE
== END 2020-09-20 13:05 | disposition home or self-care (01) ==
LOC: FBPOP 03:48 → 4FBP 05:24
PROVIDERS: ADMIT Obstetrics & Gynecology; ATTEND Obstetrics & Gynecology
DX: O26.833 Pregnancy related renal disease, third trimester (principal); N20.0 Calculus of kidney; Z3A.28 28 weeks gestation of pregnancy; O99.333 Smoking (tobacco) complicating pregnancy, third trimester; F17.200 Nicotine dependence, unspecified, uncomplicated; Z87.442 Personal history of urinary calculi; L73.2 Hidradenitis suppurativa; R31.0 Gross hematuria; Z98.890 Other specified postprocedural states
CPT/HCPCS: 59025; 96365; 96375; 82565; 84520; 85025; 81001; G0463; G0378; J0595; J0690; J2405; 96374; 99214

== ENCOUNTER 2020-10-20 11:19 | Emergency (ER) | payer OTHER ==
[2020-10-20 11:23] VITALS: TEMP 98.2
[2020-10-20 12:12] LABS: Basophils % (A) 0 %; Eosinophils # (A) 0.3 k/uL (0-0.7); Eosinophils % (A) 2 %; HCT 40.8 % (34.0-46.0); HGB 14.4 gm/dL (11.4-16.0); Lymphocytes # (A) 1.8 k/uL (1.0-4.8); Lymphocytes % (A) 11 %; MCH 31.4 pg (25.0-35.0); MCHC 35.3 g/dL (31.0-37.0); Mean Platelet Volume 8.4; Monocytes # (A) 0.7 k/uL (0-1.0); Monocytes % (A) 4 %; Neutrophils # (A) 13.6 k/uL (1.3-7.7); Neutrophils % (A) 82 %; Platelet Count 242 k/uL (150-450); RBC 4.58 m/uL (3.80-5.40); RDW 12.4 % (11.5-15.5); WBC 16.6 k/uL (3.8-10.6)
[2020-10-20 12:21] LABS: ALT 8 U/L (4-34); AST 18 U/L (14-36); African American GFR (CKD) >90 (>60 ml/min/1.73 sqM); Albumin 4.2 g/dL (3.5-5.0); Alkaline Phosphatase 114 U/L (38-126); Anion Gap 9 mmol/L; Blood Urea Nitrogen 5 mg/dL (7-17); Calcium 9.9 mg/dL (8.4-10.2); Carbon Dioxide 24 mmol/L (22-30); Chloride 105 mmol/L (98-107); Glucose 96 mg/dL (74-99); LDH 382 U/L (313-618); Non-African American GFR(CKD) >90 (>60 ml/min/1.73 sqM); Potassium 3.6 mmol/L (3.5-5.1); Sodium 138 mmol/L (137-145); Total Bilirubin 0.5 mg/dL (0.2-1.3); Total Protein 7.7 g/dL (6.3-8.2); Uric Acid 5.3 mg/dL (3.7-7.4)
--- NOTE | 2020-10-20 12:22 | XR ---
EXAMINATION TYPE: XR chest 2V DATE OF EXAM: 10/20/2020 COMPARISON: 06/13/2019 HISTORY: Chest pain TECHNIQUE: Frontal and lateral views of the chest are obtained. FINDINGS: There is no focal air space opacity. No evidence for pneumothorax. No pleural effusion. The cardiac silhouette size is within normal limits. The osseous structures are grossly intact. IMPRESSION: 1. No acute cardiopulmonary process.
[2020-10-20 12:37] VITALS: RESP 18
--- NOTE | 2020-10-20 13:30 | ED ---
General Adult HPI - General Chief complaint: Shortness of Breath Stated complaint: 33 wks preg, SOB Time Seen by Provider: 10/20/20 11:28 Source: patient Mode of arrival: ambulatory Limitations: no limitations - History of Present Illness Initial comments: 25-year-old female patient who is 33 weeks , G2, P1 presents to the emergency department today for evaluation of elevated blood pressure and shortness of breath. Patient was at her routine visit with Dr. West when they found her blood pressure to be elevated. Patient has been feeling intermittently short of breath over the last few days. She denies any cough or congestion. Denies fever or chills. Patient denies any significant swelling to her legs. States she has been having some lower abdominal pain and generalized abdominal tightening. States that she gets the abdominal symptoms about once per hour. Denies any vaginal discharge or bleeding. Denies any dizziness or wea kness. Denies hematuria, dysuria, urinary frequency, urinary urgency. Patient denies any recent rash, chest pain, nausea, vomiting, diarrhea, constipation, back pain, numbness, tingling, headache, visual changes, or any other complaints. - Related Data Home Medications Medication Instructions Recorded Confirmed No Known Home Medications 10/20/20 10/20/20 Allergies Allergy/AdvReac Type Severity Reaction Status Date / Time No Known Allergies Allergy Verified 10/20/20 13:03 Review of Systems ROS Statement: Those systems with pertinent positive or pertinent negative responses have been documented in the HPI. ROS Other: All systems not noted in ROS Statement are negative. Past Medical History Past Medical History: No Reported History, Thyroid Disorder Additional Past Medical History / Comment(s): Hydradenitis suppertiva; Kidney stones History of Any Multi-Drug Resistant Organisms: None Reported Past Surgical History: No Surgical Hx Reported Additional Past Surgical History / Comment(s): cyst removed from buttocks two years ago, cystoscopy with right ureteroscopy and holmium laser lithotripsy on 09/19/2020 Past Anesthesia/Blood Transfusion Reactions: No Reported Reaction Past Psychological History: No Psychological Hx Reported Smoking Status: Current every day smoker Past Alcohol Use History: None Reported Past Drug Use History: None Reported - Past Family History Mother Family Medical History: No Reported History General Exam Limitations: no limitations General appearance: alert, in no apparent distress, other (this is a well- developed, well-nourished adult female patient in no acute distress.) Eye exam: Present: normal appearance, PERRL, EOMI. Absent: scleral icterus, conjunctival injection, nystagmus, periorbital swelling ENT exam: Present: normal exam, normal oropharynx, mucous membranes moist Respiratory exam: Present: normal lung sounds bilaterally. Absent: respiratory distress, wheezes, rales, rhonchi, stridor Cardiovascular Exam: Present: normal rhythm, tachycardia, normal heart sounds. Absent: systolic murmur, diastolic murmur, rubs, gallop, clicks GI/Abdominal exam: Present: soft, normal bowel sounds. Absent: distended, tenderness, guarding, rebound, rigid Neurological exam: Present: alert, oriented X3, CN II-XII intact Psychiatric exam: Present: normal affect, normal mood Skin exam: Present: warm, dry, intact, normal color. Absent: rash Course Vital Signs 10/20/20 10/20/20 10/20/20 11:21 11:54 11:58 Temperature 98.2 F Pulse Rate 121 H 95 Respiratory 24 18 20 Rate Blood Pressure 158/94 151/95 O2 Sat by Pulse 99 98 Oximetry 10/20/20 10/20/20 10/20/20 12:35 13:00 14:00 Temperature Pulse Rate 89 86 97 Respiratory 18 18 18 Rate Blood Pressure 145/89 147/93 134/97 O2 Sat by Pulse 98 98 98 Oximetry 10/20/20 14:16 Temperature 98.2 F Pulse Rate 97 Respiratory 18 Rate Blood Pressure 134/97 O2 Sat by Pulse 98 Oximetry EKG Findings - EKG Comments: EKG Findings:: EKG obtained at 1202 shows normal sinus rhythm with a ventricular rate of 98, SD interval 134, QRS duration 82, QT 344, QTC 439. No evidence of ST elevation or depression. Medical Decision Making - Medical Decision Making 25 year-old female patient presented to the emergency department at the request of Dr. West for evaluation of elevated blood pressure, shortness of breath, and abdominal pain. Physical examination reveals mild wheezing. Abdomen soft and only tender, gravid. Labs reviewed and were unremarkable. Chest x-ray is negative. Tested negative for COVID-19. Blood pressures were elevated on the emergency department. I Did call and discuss the case with Dr. West who requests patient be sent up stairs for NST and further evaluation. Discuss findings and results with the patient. She is instructed to proceed immediately to labor and delivery unit for further evaluation. Return parameters were discussed in detail. She verbalizes understanding and agrees with this plan. Case discussed with my attending Dr. Duncan. - Lab Data Result diagrams: 10/20/20 12:00 10/20/20 12:00 Lab Results 10/20/20 10/20/20 10/20/20 Range/Units 11:55 12:00 12:00 WBC 16.6 H (3.8-10.6) k/uL RBC 4.58 (3.80-5.40) m/uL Hgb 14.4 (11.4-16.0) gm/dL Hct 40.8 (34.0-46.0) % MCV 89.0 (80.0-100.0) fL MCH 31.4 (25.0-35.0) pg MCHC 35.3 (31.0-37.0) g/dL RDW 12.4 (11.5-15.5) % Plt Count 242 (150-450) k/uL MPV 8.4 Neutrophils % 82 % Lymphocytes % 11 % Monocytes % 4 % Eosinophils % 2 % Basophils % 0 % Neutrophils # 13.6 H (1.3-7.7) k/uL Lymphocytes # 1.8 (1.0-4.8) k/uL Monocytes # 0.7 (0-1.0) k/uL Eosinophils # 0.3 (0-0.7) k/uL Basophils # 0.0 (0-0.2) k/uL Sodium 138 (137-145) mmol/L Potassium 3.6 (3.5-5.1) mmol/L Chloride 105 (98-107) mmol/L Carbon Dioxide 24 (22-30) mmol/L Anion Gap 9 mmol/L BUN 5 L (7-17) mg/dL Creatinine 0.72 (0.52-1.04) mg/dL Est GFR (CKD-EPI)AfAm >90 (>60 ml/min/1.73 sqM) Est GFR (CKD-EPI)NonAf >90 (>60 ml/min/1.73 sqM) Glucose 96 (74-99) mg/dL Uric Acid 5.3 (3.7-7.4) mg/dL Calcium 9.9 (8.4-10.2) mg/dL Total Bilirubin 0.5 (0.2-1.3) mg/dL AST 18 (14-36) U/L ALT 8 (4-34) U/L Alkaline Phosphatase 114 (38-126) U/L Lactate Dehydrogenase 382 (313-618) U/L Total Protein 7.7 (6.3-8.2) g/dL Albumin 4.2 (3.5-5.0) g/dL Urine Color Urine Appearance (Clear) Urine pH (5.0-8.0) Ur Specific [place] (1.001-1.035) Urine Protein (Negative) Urine Glucose (UA) (Negative) Urine Ketones (Negative) Urine Blood (Negative) Urine Nitrite (Negative) Urine Bilirubin (Negative) Urine Urobilinogen (<2.0) mg/dL Ur Leukocyte Esterase (Negative) Urine WBC (0-5) /hpf Ur Squamous Epith Cells (0-4) /hpf Amorphous Sediment (None) /hpf Urine Bacteria (None) /hpf Urine Mucus (None) /hpf Coronavirus (PCR) Not Detected (Not Detectd) 10/20/20 Range/Units 13:28 WBC (3.8-10.6) k/uL RBC (3.80-5.40) m/uL Hgb (11.4-16.0) gm/dL Hct (34.0-46.0) % MCV (80.0-100.0) fL MCH (25.0-35.0) pg MCHC (31.0-37.0) g/dL RDW (11.5-15.5) % Plt Count (150-450) k/uL MPV Neutrophils % % Lymphocytes % % Monocytes % % Eosinophils % % Basophils % % Neutrophils # (1.3-7.7) k/uL Lymphocytes # (1.0-4.8) k/uL Monocytes # (0-1.0) k/uL Eosinophils # (0-0.7) k/uL Basophils # (0-0.2) k/uL Sodium (137-145) mmol/L Potassium (3.5-5.1) mmol/L Chloride (98-107) mmol/L Carbon Dioxide (22-30) mmol/L Anion Gap mmol/L BUN (7-17) mg/dL Creatinine (0.52-1.04) mg/dL Est GFR (CKD-EPI)AfAm (>60 ml/min/1.73 sqM) Est GFR (CKD-EPI)NonAf (>60 ml/min/1.73 sqM) Glucose (74-99) mg/dL Uric Acid (3.7-7.4) mg/dL Calcium (8.4-10.2) mg/dL Total Bilirubin (0.2-1.3) mg/dL AST (14-36) U/L ALT (4-34) U/L Alkaline Phosphatase (38-126) U/L Lactate Dehydrogenase (313-618) U/L Total Protein (6.3-8.2) g/dL Albumin (3.5-5.0) g/dL Urine Color Yellow Urine Appearance Cloudy H (Clear) Urine pH 7.0 (5.0-8.0) Ur Specific [place] 1.016 (1.001-1.035) Urine Protein Trace H (Negative) Urine Glucose (UA) Negative (Negative) Urine Ketones Negative (Negative) Urine Blood Negative (Negative) Urine Nitrite Negative (Negative) Urine Bilirubin Negative (Negative) Urine Urobilinogen <2.0 (<2.0) mg/dL Ur Leukocyte Esterase Small H (Negative) Urine WBC 11 H (0-5) /hpf Ur Squamous Epith Cells 1 (0-4) /hpf Amorphous Sediment Occasional H (None) /hpf Urine Bacteria Rare H (None) /hpf Urine Mucus Occasional H (None) /hpf Coronavirus (PCR) (Not Detectd) - Radiology Data Radiology results: report reviewed, image reviewed Two-view x-ray of the chest is obtained. Report was reviewed in its entirety. Impression by Dr. Morse shows no acute cardiopulmonary process. Disposition Clinical Impression: Elevated BP without diagnosis of hypertension, Shortness of breath Disposition: HOME SELF-CARE Condition: Good Instructions (If sedation given, give patient instructions): Shortness of Breath (ED) Additional Instructions: Proceed directly to the labor and delivery unit for further monitoring of your baby. Return to the emergency department for any new, worsening, or concerning symptoms. Is patient prescribed a controlled substance at d/c from ED?: No Referrals: Kt Brooks MD [Primary Care Provider] - 1-2 days Time of Disposition: 14:09
[2020-10-20 13:56] LABS: Amorphous Sediment,Urine Occasional /hpf; Appearance,Urine Cloudy (Clear); Bacteria,Urine Rare /hpf; Bilirubin,Urine Negative (Negative); Blood,Urine Negative (Negative); Color,Urine Yellow; Glucose,Urine (UA) Negative (Negative); Ketones,Urine Negative (Negative); Leukocyte Esterase,Urine Small (Negative); Mucus,Urine Occasional /hpf; Nitrite,Urine Negative (Negative); Protein,Urine Trace (Negative); Specific Gravity,Urine 1.016 (1.001-1.035); Squamous Epithelial Cell,Urine 1 /hpf (0-4); Urobilinogen,Urine <2.0 mg/dL (<2.0); WBC,Urine 11 /hpf (0-5)
[2020-10-20 14:03] VITALS: BP 134/97; PULSE 97
== END 2020-10-20 14:20 | disposition home or self-care (01) ==
LOC: EC 11:19
DX: O26.893 Other specified pregnancy related conditions, third trimester (principal); O99.333 Smoking (tobacco) complicating pregnancy, third trimester; R06.02 Shortness of breath; R03.0 Elevated blood-pressure reading, without diagnosis of hypertension; F17.200 Nicotine dependence, unspecified, uncomplicated; Z3A.33 33 weeks gestation of pregnancy; Z20.822 Contact with and (suspected) exposure to COVID-19
CPT/HCPCS: 36415; 71046; 80053; 81001; 83615; 84550; 85025; 87086; 87635; 93005; 99285

== ENCOUNTER 2020-10-20 14:39 | Outpatient (CLI) | payer OTHER ==
[2020-10-20] MEDS ORDERED: LACTATED RINGERS 1,000 ML IV SCH (16:00)
--- NOTE | 2020-10-20 16:35 | P.PN ---
Progress Note - Text Progress Note Date: 10/20/20 Care is seen and evaluated today. She was seen in my office and noted to have mildly elevated blood pressures with some shortness of breath and some wheezing. Due to concerns over coated she was sent to the emergency room for evaluation. She was seen in the emergency room chest x-ray was normal and will her blood pressures continued mildly elevated the only other gross findings was that her urine had 11 white blood cells. Suspect early bladder infection. Prescription for Keflex was 40 to the pharmacy. I did come over and talk with her, I was concerned due to new onset of blood pressure issues that we need of more thorough evaluation. We did do preeclamptic labs all of which were normal including a protein creatinine ratio of 0.1. She relates that she cannot stay she has a child that is [place] off the bus and has known to care for them and she is signing out AGAINST MEDICAL ADVICE finding do not discharge her at this time. She is aware of risks of discharge and/or signing out AGAINST MEDICAL ADVICE so we will plan to allow her to leave the hospital, she is encouraged to return with worsening of symptoms. Blood pressures continued minimally elevated 140s over 90s. No signs or symptoms of preeclampsia there is no peripheral edema she has no visual changes, headache or epigastric pain. Deep tendon reflexes are normal. All labs are normal. She will follow up again later this week for nonstress test and blood pressure evaluation in the office. She is aware of all this and this emphasized her prior to her leaving. All the questions are answered for her at this time. Diagnosis new-onset gestational hypertension. She is encouraged to quit smoking and return for worsening of symptoms.
[2020-10-20 16:39] VITALS: BP 146/71; PULSE 85; RESP 16; TEMP 98.1
[2020-10-20 16:39] LABS: Protein/Creatinine Ratio,Urine 0.116
--- NOTE | 2020-10-21 17:23 | P.MSEPDOC ---
Presenting Problems - Arrival Data Date of Arrival on Unit: 10/20/20 Time of Arrival on Unit: 15:30 Mode of Transport: Wheelchair - Complaint OB-Reason for Admission/Chief Complaint: NST, PIH Comment: PT HERE FROM ER FOR [facility], DR MICHELLE AT BEDSIDE SPEAKING WITH PATIENT Medical History - Information : 2 Para: 1 Term: 1 : 0 Abortions: Spontaneous or Elective: 0 Number of Living Children: 1 - Gestational Age Gestational Age by ESSIE (wks/days): 33 Weeks and 0 Days - History Complications: Smoker, Hx. Substance Abuse Comment: PT REPORTS MARIJUANA USE WEEKLY Review of Systems - Review of Systems Constitutional: No problems Breast: No problems ENT: No problems Cardiovascular: No problems Respiratory: No problems Gastrointestinal: No problems Genitourinary: No problems Musculoskeletal: No problems Neurological: No problems Skin: No problems Comment: PT HAS BLADDER INFECTION Vital Signs - Temperature Temperature: 98.1 F Temperature Source: Oral - Pulse Supine Pulse Rate: 85 Pulse Assessment Method: Automatic Cuff - Respirations Respiratory Rate: 16 Oxygen Delivery Method: Room Air - Blood Pressure Left Arm Blood Pressure: 146/71 Blood Pressure Mean: 96 Blood Pressure Source: Automatic Cuff Medical Screen Scoring (Pre) - Cervical Exam Dilation: Exam Deferred Effacement: Exam Deferred - Uterine Contractions Frequency: N/A Duration: N/A Intensity: N/A - Maternal Vital Signs Maternal Temperature: N/A Signs of Preeclampsia: N/A Maternal Respirations: N/A - Maternal Trauma Maternal Trauma: N/A - Assessment - Baby A Baseline FHR: 120 Heart Rate - NICHD Category: Category I (Normal) = 0 NST: Reactive Position: N/A Station: N/A - Total Score - Baby A Total Score - Baby A: 0 - Total Score - Baby B Total Score - Baby B: 0 - Total Score - Baby C Total Score - Baby C: 0 - Level of Risk - Baby A Level of Risk - Baby A: Low (0-5) - Level of Risk - Baby B Level of Risk - Baby B: Low (0-5) - Level of Risk - Baby C Level of Risk - Baby C: Low (0-5) Physician Notification (Pre) - Physician Notified Physician Notified Date: 10/20/20 Physician Notified Time: 16:00 - Notification Comment Comment: DR MICHELLE AT BEDSIDE. HOSPITAL DICTATION DONE Disposition - Disposition OB Disposition: Discharge to home, Written follow up instructions reviewed Discharge Date: 10/20/20 Discharge Time: 16:39 I agree with the RN Medical Screening Exam: Yes Case reviewed; plan agreed upon as documented in EMR&OBIX.: Yes Diagnosis: GESTATIONAL HTN W/O SIGNIFICANT PROTEINURIA, THIRD TRIMESTER
== END 2020-10-20 16:42 | disposition home or self-care (01) ==
LOC: FBPOP 14:39
PROVIDERS: ATTEND Obstetrics & Gynecology
DX: O13.9 Gestational [pregnancy-induced] hypertension without significant proteinuria, unspecified trimester (principal); Z3A.00 Weeks of gestation of pregnancy not specified
CPT/HCPCS: 59025; 82570; 84156; G0463; 99213

== ENCOUNTER 2020-10-26 11:32 | Outpatient (CLI) | payer OTHER ==
[2020-10-26] MEDS ORDERED: LACTATED RINGERS 1,000 ML IV ONE (12:15)
[2020-10-26 12:52] LABS: Basophils % (A) 0 %; Eosinophils # (A) 0.1 k/uL (0-0.7); Eosinophils % (A) 1 %; HGB 13.7 gm/dL (11.4-16.0); Lymphocytes # (A) 0.8 k/uL (1.0-4.8); Lymphocytes % (A) 5 %; MCH 32.1 pg (25.0-35.0); MCHC 36.2 g/dL (31.0-37.0); MCV 88.7 fL (80.0-100.0); Mean Platelet Volume 8.7; Monocytes # (A) 0.3 k/uL (0-1.0); Monocytes % (A) 2 %; Neutrophils % (A) 92 %; Platelet Count 218 k/uL (150-450); RBC 4.28 m/uL (3.80-5.40); RDW 12.6 % (11.5-15.5); WBC 15.2 k/uL (3.8-10.6)
[2020-10-26 13:01] LABS: ALT 9 U/L (4-34); AST 17 U/L (14-36); African American GFR (CKD) >90 (>60 ml/min/1.73 sqM); Blood Urea Nitrogen 5 mg/dL (7-17); LDH 360 U/L (313-618); Magnesium 1.6 mg/dL (1.6-2.3); Non-African American GFR(CKD) >90 (>60 ml/min/1.73 sqM); Uric Acid 4.6 mg/dL (3.7-7.4)
[2020-10-26 13:07] LABS: Creatinine,Urine Random 142.6 mg/dL; Protein/Creatinine Ratio,Urine 0.098
[2020-10-26 13:20] LABS: Amorphous Sediment,Urine Moderate /hpf; Appearance,Urine Turbid (Clear); Bacteria,Urine Rare /hpf; Bilirubin,Urine Negative (Negative); Blood,Urine Negative (Negative); Color,Urine Yellow; Glucose,Urine (UA) Negative (Negative); Ketones,Urine 4+ (Negative); Leukocyte Esterase,Urine Negative (Negative); Mucus,Urine Moderate /hpf; Nitrite,Urine Negative (Negative); PH, Urine 8.5 (5.0-8.0); Protein,Urine Trace (Negative); RBC,Urine 2 /hpf (0-5); Squamous Epithelial Cell,Urine 1 /hpf (0-4); Urobilinogen,Urine <2.0 mg/dL (<2.0); WBC,Urine 6 /hpf (0-5)
[2020-10-26 13:24] VITALS: TEMP 95.8
[2020-10-26] MEDS ORDERED: ONDANSETRON 4 MG/2 ML VIAL IVP STA (13:32)
[2020-10-26 15:48] VITALS: BP 123/75; PULSE 67; RESP 18
--- NOTE | 2020-10-27 02:42 | P.MSEPDOC ---
Presenting Problems - Arrival Data Date of Arrival on Unit: 10/26/20 Time of Arrival on Unit: 11:32 Mode of Transport: EMS - Complaint OB-Reason for Admission/Chief Complaint: Rule Out SROM, Acute Nausea/Vomiting, Visual Disturbances, Dizziness Comment: Pt report to triage via EMS with c/o N/V starting around 2200 last night. ABD pain. Leaking of fluid while vomitting. Medical History - Information : 2 Para: 1 Term: 1 : 0 Abortions: Spontaneous or Elective: 0 Number of Living Children: 1 - Gestational Age Gestational Age by ESSIE (wks/days): 33 Weeks and 6 Days Review of Systems - Review of Systems Constitutional: No problems Breast: No problems ENT: No problems Cardiovascular: No problems Respiratory: No problems Gastrointestinal: No problems, Pain Genitourinary: No problems Musculoskeletal: Muscle weakness Neurological: Dizziness Skin: No problems Vital Signs - Temperature Temperature: 95.8 F Temperature Source: Temporal Artery Scan - Pulse Right Pulse Rate: 67 Pulse Assessment Method: Automatic Cuff - Respirations Respiratory Rate: 18 Oxygen Delivery Method: Room Air - Blood Pressure Right Arm Blood Pressure: 123/75 Blood Pressure Mean: 91 Blood Pressure Source: Automatic Cuff Medical Screen Scoring (Pre) - Cervical Exam Dilation: 1-3 cm = 1 Effacement: Exam Deferred Membranes: Intact - Uterine Contractions Frequency: N/A Duration: N/A Intensity: N/A - Maternal Vital Signs Maternal Temperature: N/A Maternal Blood Pressure: N/A Signs of Preeclampsia: N/A Maternal Respirations: N/A - Maternal Trauma Maternal Trauma: N/A - Assessment - Baby A Baseline FHR: 110 Heart Rate - NICHD Category: Category I (Normal) = 0 NST: Reactive Position: N/A Station: N/A - Total Score - Baby A Total Score - Baby A: 1 - Total Score - Baby B Total Score - Baby B: 1 - Total Score - Baby C Total Score - Baby C: 1 - Level of Risk - Baby A Level of Risk - Baby A: Low (0-5) - Level of Risk - Baby B Level of Risk - Baby B: Low (0-5) - Level of Risk - Baby C Level of Risk - Baby C: Low (0-5) Physician Notification (Pre) - Physician Notified Physician Notified Date: 10/26/20 Physician Notified Time: 11:55 New Order Received: Yes - Notification Comment Comment: Orders for PIH labs,bp [id number]. FFN,amnisure,cervical exam, if pt dilated send FFN. LR hydration @ 100ml/hr. Call back with results. Medical Screen Scoring (Post) - Cervical Exam Dilation: Exam Deferred Effacement: Exam Deferred Membranes: Intact - Uterine Contractions Frequency: N/A Duration: N/A Intensity: N/A - Maternal Vital Signs Maternal Temperature: N/A Maternal Blood Pressure: N/A Signs of Preeclampsia: N/A Maternal Respirations: N/A - Pain Assessment Pain Location and Character: Abdomen Pain Scale Used: Numeric (1 - 10) Pain Intensity: 9 Pain Management Goal: 0 Pain Description: *Acute, Sharp Pain Frequency: Constant Pain Duration Units: Hours Pain Behavior: Vocalization - Maternal Trauma Maternal Trauma: N/A - Assessment - Baby A Heart Rate: 110 Heart Rate - NICHD Category: Category I (Normal) = 0 NST: Reactive Position: N/A Station: N/A - Total Score Total Score - Baby A: 0 Total Score - Baby B: 0 Total Score - Baby C: 0 - Post Treatment Level of Risk Post Treatment Level of Risk - Baby A: Low (0-5) Post Treatment Level of Risk - Baby B: Low (0-5) Post Treatment Level of Risk - Baby C: Low (0-5) Physician Notification (Post) - Physician Notified Physician Notified Date: 10/26/20 Physician Notified Time: 14:53 Physician/Practitioner Notified:: Ward Spoke With: Ward New Order Received: No - Notification Comment Comment: home with follow up instructions. Disposition - Disposition OB Disposition: Discharge to home Discharge Date: 10/26/20 Discharge Time: 15:00 I agree with the RN Medical Screening Exam: Yes Case reviewed; plan agreed upon as documented in EMR&OBIX.: Yes Diagnosis: NAUSEA WITH VOMITING, UNSPECIFIED Additional Diagnoses: Gestational hypertension
== END 2020-10-26 15:00 | disposition home or self-care (01) ==
LOC: FBPOP 11:32
PROVIDERS: ATTEND Obstetrics & Gynecology
DX: O21.2 Late vomiting of pregnancy (principal); O13.3 Gestational [pregnancy-induced] hypertension without significant proteinuria, third trimester; Z3A.33 33 weeks gestation of pregnancy
CPT/HCPCS: 59025; 96360; 96361; 96375; 84112; 82731; 82570; 84156; 82565; 83615; 83735; 84450; 84460; 84520; 84550; 85025; 81001; G0463; J2405; 99214

== ENCOUNTER 2020-10-27 20:45 | Observation (INO) | payer OTHER ==
[2020-10-27] MEDS: LACTATED RINGERS 500 ML IV SCH (21:45)
[2020-10-27] MEDS: LACTATED RINGERS 1,000 ML IV SCH ×2 (21:45→22:20)
[2020-10-27] MEDS ORDERED: ONDANSETRON 4 MG/2 ML VIAL IVP PRN (22:25)
[2020-10-27] MEDS ORDERED: ACETAMINOPHEN TAB 325 MG TAB PO PRN (22:25)
[2020-10-27 22:26] LABS: Basophils % (A) 0 %; Eosinophils # (A) 0.2 k/uL (0-0.7); Eosinophils % (A) 1 %; HCT 36.8 % (34.0-46.0); HGB 13.2 gm/dL (11.4-16.0); Lymphocytes # (A) 1.3 k/uL (1.0-4.8); Lymphocytes % (A) 7 %; MCHC 35.9 g/dL (31.0-37.0); MCV 89.1 fL (80.0-100.0); Mean Platelet Volume 8.2; Monocytes # (A) 0.8 k/uL (0-1.0); Monocytes % (A) 5 %; Neutrophils # (A) 15.2 k/uL (1.3-7.7); Neutrophils % (A) 86 %; Platelet Count 221 k/uL (150-450); RBC 4.14 m/uL (3.80-5.40); RDW 12.6 % (11.5-15.5); WBC 17.8 k/uL (3.8-10.6)
[2020-10-27] MEDS ORDERED: BETAMET ACET-BETAMETH SOD PHOS 6 MG/ML MDV IM SCH (22:30)
--- NOTE | 2020-10-27 22:37 | P.HPOB ---
History of Present Illness H&P Date: 10/27/20 Chief Complaint: Abdominal pain This is one of multiple admissions for this 25-year-old 2 para 1 female estimated date of confinement 12/08/2020 estimated gestational age 34-0/7 weeks who presented by EMS with complaints of abdominal pain and . Patient was here yesterday with similar complaints including nausea and vomiting. She presented by EMS at that time as well. Patient was evaluated by Dr. Hopper and noted to have elevated blood pressures and at that time was given IV fluids, negative preeclampsia labs, and had a positive fibronectin. Patient called the office earlier this afternoon and stated that she was not feeling better and I told my nurse to have her come to the hospital immediately. Patient unfortunately continued to stay at home and now is taken EMS here this evening. Patient's care is per Dr. West. It is complicated by admissions for abdominal pain and hypertension as well as kidney stones. Review of Systems Constitutional: Reports as per HPI, Reports chronic pain Genitourinary: Reports Menstruation: Reports amenorrhea Past Medical History Past Medical History: Thyroid Disorder Additional Past Medical History / Comment(s): Hydradenitis suppertiva; Kidney stones History of Any Multi-Drug Resistant Organisms: None Reported Additional Past Surgical History / Comment(s): cyst removed from buttocks two years ago, cystoscopy with right ureteroscopy and holmium laser lithotripsy on 09/19/2020 Past Anesthesia/Blood Transfusion Reactions: No Reported Reaction Smoking Status: Current every day smoker - Past Family History Mother Family Medical History: No Reported History Medications and Allergies Home Medications Medication Instructions Recorded Confirmed Type HYDROcodone/APAP 5-325MG [[place] 5 mg PO DAILY PRN 10/27/20 10/27/20 History 5-325] Allergies Allergy/AdvReac Type Severity Reaction Status Date / Time No Known Allergies Allergy Verified 10/27/20 20:49 Exam Intake and Output 10/27/20 10/27/20 10/27/20 06:59 14:59 22:59 Other: Weight 92.986 kg - OBG Physical Exam Abdomen: bowel sounds normal, no diffuse tenderness, no bruit present, no guarding noted, no hepatomegaly, no splenomegaly, no mass Cervix: no lesion (Cervix yesterday was reported as 2 cm today she is reporting is 1 cm dilated and thick.), no discharge Results fibronectin yesterday was positive. Result Diagrams: 10/27/20 22:13 Abnormal Lab Results - Last 24 Hours (Table) 10/27/20 Range/Units 22:13 WBC 17.8 H (3.8-10.6) k/uL Neutrophils # 15.2 H (1.3-7.7) k/uL Assessment and Plan Assessment: This is a 25-year-old 2 para 1 female 34-0/7 weeks gestation who presents to labor and delivery with complaints of abdominal pain and persistent nausea vomiting and inability to keep anything down. She also has gestational hypertension without evidence of preeclampsia. Patient has a positive fibronectin from yesterday. Plan is to admit this patient for IV antibiotics, pain control, due to the positive fibronectin we'll also give her a dose of [place]. She also apparently was supposed to take an antibiotic orally last week however she did not and her white count is slightly elevated at 17, therefore I'm going to put her on some IV Ancef. I did discuss this care plan with the patient and she is agreeable to staying for evaluation and admission. (1) 34 weeks gestation of Current Visit: Yes Status: Acute Code(s): Z3A.34 - 34 WEEKS GESTATION OF SNOMED Code(s): 65510970 (2) Pain Current Visit: Yes Status: Acute Code(s): R52 - PAIN, UNSPECIFIED SNOMED Code(s): 07097952 (3) Gestational hypertension Current Visit: Yes Status: Acute Code(s): O13.9 - GESTATIONAL HTN W/O SIGNIFICANT PROTEINURIA, UNSP TRIMESTER SNOMED Code(s): 913277675 (4) Positive fibronectin at 22 weeks to 34 weeks gestation Current Visit: Yes Status: Acute Code(s): O09.899 - SUPERVISION OF OTHER HIGH RISK PREGNANCIES, UNSP TRIMESTER; R87.89 - OTH ABNORMAL FINDINGS IN SPECMN FROM FEMALE GENITAL ORGANS SNOMED Code(s): 735641776
[2020-10-27 22:46] LABS: Amorphous Sediment,Urine Few /hpf; Appearance,Urine Turbid (Clear); Bacteria,Urine Rare /hpf; Bilirubin,Urine Negative (Negative); Blood,Urine Moderate (Negative); Color,Urine Yellow; Glucose,Urine (UA) Negative (Negative); Hyaline Casts,Urine 3 /lpf (0-2); Ketones,Urine 2+ (Negative); Leukocyte Esterase,Urine Small (Negative); Mucus,Urine Rare /hpf; Nitrite,Urine Negative (Negative); Protein,Urine Trace (Negative); RBC,Urine 29 /hpf (0-5); Specific Gravity,Urine 1.011 (1.001-1.035); Squamous Epithelial Cell,Urine <1 /hpf (0-4); Urobilinogen,Urine <2.0 mg/dL (<2.0); WBC,Urine 11 /hpf (0-5)
[2020-10-27 22:52] LABS: Amphetamine Screen,Urine Not Detected (NotDetected); Barbiturate Screen,Urine Not Detected (NotDetected); Benzodiazepines Screen,Urine Not Detected (NotDetected); Cocaine Screen,Urine Not Detected (NotDetected); Methadone Screen, Urine Not Detected (NotDetected); Opiate Screen,Urine Not Detected (NotDetected); Oxycodone Screen, Urine Not Detected (NotDetected); Phencyclidine Screen,Urine Not Detected (NotDetected); Tricyclic Antidepressant,Urine Not Detected (NotDetected); Urn Cannabinoid Scrn Detected (NotDetected)
[2020-10-27] MEDS: BUTORPHANOL 1 MG/ML 1 ML VIAL IV PRN (23:09)
[2020-10-28] MEDS: LACTATED RINGERS 500 ML IV SCH (01:18)
[2020-10-28] MEDS: BUTORPHANOL 1 MG/ML 1 ML VIAL IV PRN ×2 (03:15→07:19)
[2020-10-28] MEDS: LACTATED RINGERS 1,000 ML IV SCH ×3 (03:22→06:34)
--- NOTE | 2020-10-28 08:40 | US ---
EXAMINATION TYPE: US abdomen complete DATE OF EXAM: 10/28/2020 COMPARISON: 09/18/2020 CLINICAL HISTORY: 25-year-old female abdominal pain. RUQ pain TECHNIQUE: Multiple sonographic images of the abdomen are obtained. FINDINGS: EXAM MEASUREMENTS: Liver Length: 18.2 cm Gallbladder Wall: 0.2 cm CBD: 0.4 cm Spleen: 9.1 cm Right Kidney: 12.6 x 5.1 x 5.8 cm Left Kidney: 11.6 x 5.7 x 6.7 cm Patient 34 weeks . Pancreas: Obscured by bowel gas Liver: measures 18.2 cm Gallbladder: No stones seen Evidence for sonographic Hanks's sign: No CBD: wnl Spleen: wnl Right Kidney: mild hydronephrosis Left Kidney: No hydronephrosis or masses seen Upper IVC: wnl Abd Aorta: wnl IMPRESSION: 1. Mild hepatomegaly (18.2 cm). 2. Mild right-sided hydronephrosis. 3. No gallstones or biliary ductal dilatation.
--- NOTE | 2020-10-28 08:44 | P.PN ---
Progress Note - Text Progress Note Date: 10/28/20 Patient is seen and evaluated this morning. She relates her pain is significantly improved over last night. She is requesting discharge home today, but we have an ultrasound that is pending and she did recently receive pain meds are not sure if her pain is gone because the pain medication or due to it resolving. She is on antibiotics now and it is also possible that the antibiotics and start working but is decreasing her pain if that was the cause of her pain. Her vital signs are otherwise stable she is afebrile. Her blood pressures last night are noted to be in the 160s over 80s and 90s on several occasions. Due to her blood pressure seeming to increase Will initiate by mouth antihypertensive therapy and since we'll have her here at least 3 early to mid afternoon see how she tolerates that. All the questions are answered for her at this time and we will continue current care for now.
[2020-10-28] MEDS ORDERED: LABETALOL 100 MG TAB PO SCH (09:00)
[2020-10-28 13:21] VITALS: BP 139/89; PULSE 88; RESP 17; TEMP 97.5
--- NOTE | 2020-10-28 13:32 | P.DS ---
Providers Date of admission: 10/27/20 22:23 Expected date of discharge: 10/28/20 Attending physician: Dylon West Primary care physician: Stated None Hospital Course: Patient relates that this time her pain is essentially completely gone. She is requesting discharge to home as soon as possible as she has to go home and take care of her daughter. Prescription for Pepcid and labetalol have been forwarded to the pharmacy. She will initiate those today. She'll take the labetalol twice daily. She also was reminded again to finish her antibiotics for her bladder infection which may be the cause of some of her pain at this time. Ot herwise her vital signs are stable and she is currently afebrile. Her heart is regular, lungs are clear, extremities without pain. Reactive heart tones have been noted earlier today. We had a lengthy discussion on follow-up care and I did again expressed my concerns with her off and leaving the hospital to early before she is completely better and this was due to the fact that she keeps returning to the hospital rather than waiting at the hospital until she is feeling better before deciding she has to go home. Much of this is social related and not necessarily medically related. She is however stable for discharge this time and she'll follow me on Tuesday morning. Chart instruction were thoroughly reviewed and all the questions are answered for her prior to discharge. Patient Condition at Discharge: Good Plan - Discharge Summary New Discharge Prescriptions: New Famotidine [Pepcid] 20 mg PO DAILY 30 Days #30 Labetalol [Trandate] 100 mg PO BID 30 Days #60 tablet No Action HYDROcodone/APAP 5-325MG [[place] 5-325] 5 mg PO DAILY PRN PRN Reason: Pain Discharge Medication List HYDROcodone/APAP 5-325MG [[place] 5-325] 5 mg PO DAILY PRN 10/27/20 [History] Famotidine [Pepcid] 20 mg PO DAILY 30 Days #30 10/28/20 [Rx] Labetalol [Trandate] 100 mg PO BID 30 Days #60 tablet 10/28/20 [Rx] Follow up Appointment(s)/Referral(s): Dylon West DO [Doctor of Osteopathic Medicine] - 10/31/20 Activity/Diet/Wound Care/Special Instructions: Turning with resumption of symptoms, contractions or other problems Discharge Disposition: HOME SELF-CARE
== END 2020-10-28 13:45 | disposition home or self-care (01) ==
LOC: FBPOP 20:45 → 4FBP 22:15 → INTOOBSV 22:15 → OBSVTOIN 22:23 → INTOOBSV 22:23 → UNDODISIN 10-28 13:45
PROVIDERS: ADMIT Obstetrics & Gynecology; ATTEND Obstetrics & Gynecology
DX: O23.13 Infections of bladder in pregnancy, third trimester (principal); O26.833 Pregnancy related renal disease, third trimester; O12.13 Gestational proteinuria, third trimester; Z3A.34 34 weeks gestation of pregnancy; O13.3 Gestational [pregnancy-induced] hypertension without significant proteinuria, third trimester; N20.0 Calculus of kidney; O99.333 Smoking (tobacco) complicating pregnancy, third trimester; O99.280 Endocrine, nutritional and metabolic diseases complicating pregnancy, unspecified trimester; Z87.442 Personal history of urinary calculi
CPT/HCPCS: 59025 ×2; 96376; 96360; 96361 ×3; 96365; 96375 ×3; 51701; 96372; 84112 ×2; 82731; 82570; 84156; 82565; 83615; 83735; 84450; 84460; 84520; 84550; 85025 ×2; 81001 ×2; 80306; 87086; 76700; G0463 ×2; G0378 ×2; J0595 ×2; J0690 ×2; J2405 ×2; J0702; 99213; 99214

== ENCOUNTER 2020-11-07 15:08 | Outpatient (CLI) | payer OTHER ==
[2020-11-07 16:21] LABS: Appearance,Urine Clear (Clear); Bacteria,Urine Rare /hpf; Bilirubin,Urine Negative (Negative); Blood,Urine Negative (Negative); Color,Urine Yellow; Glucose,Urine (UA) Negative (Negative); Ketones,Urine Negative (Negative); Leukocyte Esterase,Urine Moderate (Negative); Mucus,Urine Rare /hpf; Nitrite,Urine Negative (Negative); Protein,Urine Negative (Negative); Specific Gravity,Urine 1.008 (1.001-1.035); Squamous Epithelial Cell,Urine 2 /hpf (0-4); Urobilinogen,Urine <2.0 mg/dL (<2.0); WBC,Urine 8 /hpf (0-5)
[2020-11-07 16:25] LABS: Creatinine,Urine Random 96.7 mg/dL; Creatinine,Urine Random 99.4 mg/dL; Protein/Creatinine Ratio,Urine 0.181
[2020-11-07 16:49] LABS: Basophils % (A) 0 %; Eosinophils # (A) 0.2 k/uL (0-0.7); Eosinophils % (A) 1 %; HCT 34.6 % (34.0-46.0); HGB 12.5 gm/dL (11.4-16.0); Lymphocytes # (A) 2.2 k/uL (1.0-4.8); Lymphocytes % (A) 13 %; MCH 32.2 pg (25.0-35.0); MCV 89.5 fL (80.0-100.0); Mean Platelet Volume 8.4; Monocytes % (A) 6 %; Neutrophils # (A) 13.3 k/uL (1.3-7.7); Neutrophils % (A) 79 %; Platelet Count 251 k/uL (150-450); RBC 3.87 m/uL (3.80-5.40); RDW 12.7 % (11.5-15.5); WBC 16.8 k/uL (3.8-10.6)
[2020-11-07 17:15] LABS: ALT 11 U/L (4-34); AST 16 U/L (14-36); African American GFR (CKD) >90 (>60 ml/min/1.73 sqM); Blood Urea Nitrogen 6 mg/dL (7-17); LDH 303 U/L (313-618); Non-African American GFR(CKD) >90 (>60 ml/min/1.73 sqM); Uric Acid 5.1 mg/dL (3.7-7.4)
[2020-11-07 17:46] VITALS: BP 158/83; PULSE 96; RESP 14; TEMP 97.5
[2020-11-07] MEDS ORDERED: LABETALOL 100 MG TAB PO SCH (21:00)
--- NOTE | 2020-11-19 02:35 | P.MSEPDOC ---
Presenting Problems - Arrival Data Date of Arrival on Unit: 11/07/20 Time of Arrival on Unit: 15:07 Mode of Transport: Wheelchair - Complaint OB-Reason for Admission/Chief Complaint: Rule Out PROM Comment: pt states she had a gush of fluid around 1330 Medical History - Information : 2 Para: 1 Term: 0 : 0 Abortions: Spontaneous or Elective: 0 Number of Living Children: 1 - Gestational Age Gestational Age by ESSIE (wks/days): 35 Weeks and 4 Days - History Complications: Smoker Review of Systems - Review of Systems Constitutional: No problems Breast: No problems ENT: No problems Cardiovascular: No problems Respiratory: No problems Gastrointestinal: No problems Genitourinary: No problems Musculoskeletal: No problems Neurological: No problems Skin: No problems Vital Signs - Temperature Temperature: 97.5 F - Pulse Right Brachial Pulse Rate: 96 Pulse Assessment Method: Automatic Cuff - Respirations Respiratory Rate: 14 Oxygen Delivery Method: Room Air - Blood Pressure Right Arm Blood Pressure: 158/83 Blood Pressure Mean: 108 Blood Pressure Source: Automatic Cuff Medical Screen Scoring (Pre) - Cervical Exam Dilation: Exam Deferred Effacement: Exam Deferred - Uterine Contractions Frequency: N/A Duration: N/A Intensity: N/A - Maternal Vital Signs Maternal Temperature: N/A Maternal Blood Pressure: Systolic >139 = 2 Signs of Preeclampsia: N/A Maternal Respirations: N/A - Maternal Trauma Maternal Trauma: N/A - Assessment - Baby A Baseline FHR: 135 Heart Rate - NICHD Category: Category I (Normal) = 0 NST: Reactive Position: N/A Station: N/A - Total Score - Baby A Total Score - Baby A: 2 - Total Score - Baby B Total Score - Baby B: 2 - Total Score - Baby C Total Score - Baby C: 2 - Level of Risk - Baby A Level of Risk - Baby A: Low (0-5) - Level of Risk - Baby B Level of Risk - Baby B: Low (0-5) - Level of Risk - Baby C Level of Risk - Baby C: Low (0-5) Physician Notification (Pre) - Physician Notified Physician Notified Date: 11/07/20 Physician Notified Time: 15:44 New Order Received: Yes - Notification Comment Comment: reported pt visit to rule out rupture, negative amnisure, reactive nst, no contractions, evevated bp. dr would like pih work up and dose of labetolol [address] johnston will be taking over. lab results wnl and reported to dr johnston and decreased bp after dose. dr johnston discharges pt home Disposition - Disposition OB Disposition: Discharge to home Discharge Date: 11/07/20 Discharge Time: 17:30 I agree with the RN Medical Screening Exam: Yes Case reviewed; plan agreed upon as documented in EMR&OBIX.: Yes Diagnosis: FALSE LABOR BEFORE 37 COMPLETED WEEKS OF GEST, THIRD TRI
== END 2020-11-07 17:30 | disposition home or self-care (01) ==
LOC: FBPOP 15:08
PROVIDERS: ATTEND Obstetrics & Gynecology
DX: O47.03 False labor before 37 completed weeks of gestation, third trimester (principal); O99.333 Smoking (tobacco) complicating pregnancy, third trimester; F17.200 Nicotine dependence, unspecified, uncomplicated; Z3A.35 35 weeks gestation of pregnancy
CPT/HCPCS: 59025; 84112; 82570; 84156; 82565; 83615; 84450; 84460; 84520; 84550; 85025; 81001; G0463; 99215

== ENCOUNTER 2020-11-11 00:22 | Inpatient (IN) | payer OTHER ==
[2020-11-11] MEDS ORDERED: METHYLERGONOVINE 0.2 MG/ML 1 ML AMP IM PRN (00:41)
[2020-11-11] MEDS ORDERED: LIDOCAINE 0.5% (PF) 5 MG/ML (50 ML SDV) SQ PRN (00:41)
[2020-11-11] MEDS ORDERED: OXYTOCIN 10 UNIT/ML 1 ML VIAL IM PRN (00:41)
[2020-11-11] MEDS ORDERED: CARBOPROST TROMETHAMINE 250 MCG/ML 1 ML AMP IM PRN (00:41)
[2020-11-11] MEDS ORDERED: TERBUTALINE 1 MG/ML VIAL SQ PRN (00:41)
[2020-11-11] MEDS ORDERED: LACTATED RINGERS 1,000 ML IV SCH (00:45)
[2020-11-11] MEDS ORDERED: AMPICILLIN 2,000 MG in SODIUM CHLORIDE 0.9% 100 ML IVPB ONE (01:00)
[2020-11-11] MEDS: LACTATED RINGERS 1,000 ML IV SCH ×3 (01:05→04:52)
[2020-11-11 01:11] LABS: Basophils % (A) 0 %; Eosinophils # (A) 0.3 k/uL (0-0.7); Eosinophils % (A) 1 %; HGB 12.7 gm/dL (11.4-16.0); Lymphocytes # (A) 2.1 k/uL (1.0-4.8); Lymphocytes % (A) 11 %; MCH 32.1 pg (25.0-35.0); MCHC 36.2 g/dL (31.0-37.0); MCV 88.7 fL (80.0-100.0); Mean Platelet Volume 8.1; Monocytes % (A) 5 %; Neutrophils # (A) 15.5 k/uL (1.3-7.7); Neutrophils % (A) 81 %; Platelet Count 279 k/uL (150-450); RBC 3.94 m/uL (3.80-5.40); RDW 12.5 % (11.5-15.5)
[2020-11-11] MEDS ORDERED: fentaNYL (PF) 50 MCG/ML 5 ML AMP ONE (01:40)
[2020-11-11] MEDS ORDERED: ROPIVACAINE 5MG/ML 20ML VIAL ONE (01:40)
[2020-11-11] MEDS ORDERED: SODIUM CHLORIDE 0.9% 100 ML BAG ONE (01:40)
[2020-11-11 04:19] LABS: Amphetamine Screen,Urine Not Detected (NotDetected); Barbiturate Screen,Urine Not Detected (NotDetected); Benzodiazepines Screen,Urine Not Detected (NotDetected); Cocaine Screen,Urine Not Detected (NotDetected); Methadone Screen, Urine Not Detected (NotDetected); Opiate Screen,Urine Not Detected (NotDetected); Oxycodone Screen, Urine Not Detected (NotDetected); Phencyclidine Screen,Urine Not Detected (NotDetected); Tricyclic Antidepressant,Urine Not Detected (NotDetected); Urn Cannabinoid Scrn Detected (NotDetected)
[2020-11-11] MEDS: AMPICILLIN 1,000 MG in SODIUM CHLORIDE 0.9% 50 ML IVPB SCH ×2 (04:51→09:07)
--- NOTE | 2020-11-11 04:57 | P.HPOB ---
History of Present Illness H&P Date: 11/11/20 Chief Complaint: SROM, Labor 25 year old presents at 36 weeks 1 day in active labor and with spontaneous rupture of membranes. She thinks she may have ruptured at 9:30pm last night. Her cervix upon presentation was 5/80/-2 and she was familia every 2-10 minutes. heart tones 135 with moderate variability. Review of Systems All systems: negative Constitutional: Denies chills, Denies fever Eyes: denies blurred vision, denies pain Ears, nose, mouth and throat: Denies headache, Denies sore throat Cardiovascular: Denies chest pain, Denies shortness of breath Respiratory: Denies cough Gastrointestinal: Denies abdominal pain, Denies diarrhea, Denies nausea, Denies vomiting Genitourinary: Denies dysuria, Denies hematuria Musculoskeletal: Denies myalgias Integumentary: Denies pruritus, Denies rash Neurological: Denies numbness, Denies weakness Psychiatric: Denies anxiety, Denies depression Endocrine: Denies fatigue, Denies weight change Past Medical History Past Medical History: Hypertension, Thyroid Disorder Additional Past Medical History / Comment(s): Hydradenitis suppertiva; Kidney stones History of Any Multi-Drug Resistant Organisms: None Reported Past Surgical History: No Surgical Hx Reported Additional Past Surgical History / Comment(s): cyst removed from buttocks two years ago, cystoscopy with right ureteroscopy and holmium laser lithotripsy on 09/19/2020 Past Anesthesia/Blood Transfusion Reactions: No Reported Reaction Past Psychological History: Anxiety, Depression Smoking Status: Current every day smoker, Heavy tobacco smoker Past Alcohol Use History: None Reported Past Drug Use History: Marijuana Additional Drug Use History / Comment(s): 1/2 ppd. States she has a Rezdy card. Reports she "tries not to smoke everyday. More like every other day". - Past Family History Mother Family Medical History: No Reported History Medications and Allergies Home Medications Medication Instructions Recorded Confirmed Type HYDROcodone/APAP 5-325MG [[place] 5 mg PO DAILY PRN 10/27/20 11/11/20 History 5-325] Famotidine [Pepcid] 20 mg PO DAILY 30 Days #30 tablet 10/28/20 11/11/20 Rx Labetalol [Trandate] 100 mg PO BID 30 Days #60 tablet 10/28/20 11/11/20 Rx Pnv No.95/Ferrous Fum/Folic AC 1 tab PO DAILY 11/11/20 11/11/20 History [ Multivitamin Tablet] Allergies Allergy/AdvReac Type Severity Reaction Status Date / Time No Known Allergies Allergy Verified 11/11/20 00:26 Exam Osteopathic Statement: *. No significant issues noted on an osteopathic structural exam other than those noted in the History and Physical/Consult. Vital Signs Temp Pulse Resp BP Pulse Ox 11/11/20 00:44 96.5 F L 109 H 16 132/89 99 11/11/20 00:43 96.5 F L 109 H 16 132/89 99 Intake and Output 11/10/20 11/10/20 11/11/20 14:59 22:59 06:59 Other: Weight 94.347 kg Heart: Regular rate and rhythm Lungs: Clear to auscultation bilaterally Abdomen: Soft, nontender Extremities: Negative Homans sign Results Result Diagrams: 11/11/20 00:54 Abnormal Lab Results - Last 24 Hours (Table) 11/11/20 11/11/20 Range/Units 00:54 00:58 WBC 19.0 H (3.8-10.6) k/uL Neutrophils # 15.5 H (1.3-7.7) k/uL U Marijuana (THC) Screen Detected H (NotDetected) Assessment and Plan (1) Gestational hypertension Current Visit: No Status: Acute Code(s): O13.9 - GESTATIONAL HTN W/O SIGNIFICANT PROTEINURIA, UNSP TRIMESTER SNOMED Code(s): 132511313 (2) Normal labor Current Visit: Yes Status: Acute Code(s): O80 - ENCOUNTER FOR FULL-TERM UNCOMPLICATED DELIVERY; Z37.9 - OUTCOME OF DELIVERY, UNSPECIFIED SNOMED Code(s): 23587301 (3) Spontaneous rupture of amniotic membranes Current Visit: Yes Status: Acute Code(s): PYG6911 - SNOMED Code(s): 982269194 Plan: 1. Admit to family place 2. Expectant management 3. Ampicillin for GBS prophylaxis 4. Anticipate normal vaginal delivery
--- NOTE | 2020-11-11 04:59 | P.MSEPDOC ---
Presenting Problems - Arrival Data Date of Arrival on Unit: 11/11/20 Time of Arrival on Unit: 00:20 Mode of Transport: Wheelchair - Complaint OB-Reason for Admission/Chief Complaint: Possible Onset of Labor Medical History - Information : 2 Para: 1 Term: 1 : 0 Abortions: Spontaneous or Elective: 0 Number of Living Children: 1 - Gestational Age Gestational Age by ESSIE (wks/days): 36 Weeks and 1 Days - History Complications: Smoker Review of Systems - Review of Systems Constitutional: No problems Breast: No problems ENT: No problems Cardiovascular: No problems Respiratory: No problems Gastrointestinal: No problems Genitourinary: No problems Musculoskeletal: No problems Neurological: No problems Skin: No problems Vital Signs - Temperature Temperature: 96.5 F Temperature Source: Temporal Artery Scan - Pulse Right Brachial Pulse Rate: 109 Pulse Assessment Method: Automatic Cuff - Respirations Respiratory Rate: 16 Oxygen Delivery Method: Room Air O2 Sat by Pulse Oximetry: 99 - Blood Pressure Right Arm Blood Pressure: 132/89 Blood Pressure Mean: 103 Blood Pressure Source: Automatic Cuff Medical Screen Scoring (Pre) - Cervical Exam Dilation: 4-7 cm = 2 Membranes: Ruptured = 3 - Uterine Contractions Frequency: > 5 minutes apart = 1 Duration: N/A Intensity: N/A - Maternal Vital Signs Maternal Temperature: N/A Maternal Blood Pressure: N/A Signs of Preeclampsia: N/A Maternal Respirations: N/A - Maternal Trauma Maternal Trauma: N/A - Assessment - Baby A Baseline FHR: 140 Heart Rate - NICHD Category: Category I (Normal) = 0 NST: Reactive Position: N/A Station: N/A - Total Score - Baby A Total Score - Baby A: 6 - Total Score - Baby B Total Score - Baby B: 6 - Total Score - Baby C Total Score - Baby C: 6 - Level of Risk - Baby A Level of Risk - Baby A: Medium (6-9) - Level of Risk - Baby B Level of Risk - Baby B: Medium (6-9) - Level of Risk - Baby C Level of Risk - Baby C: Medium (6-9) Physician Notification (Pre) - Physician Notified Physician Notified Date: 11/11/20 Physician Notified Time: 00:43 New Order Received: Yes - Notification Comment Comment: Dr. Hopper given report on pt. Pt c/o. VS WNL. Vag exam of /-2. Amnisure positive. Pt requesting epidural for pain. GBS unknown. Orders received to admit pt to room. To call when pt is 7cm. Disposition - Disposition OB Disposition: Admit, LDRP Suite I agree with the RN Medical Screening Exam: Yes Case reviewed; plan agreed upon as documented in EMR&OBIX.: Yes Diagnosis: LABOR THIRD TRI W DEL THIRD TRI, FETUS 1
[2020-11-11] MEDS ORDERED: OXYTOCIN 30 UNITS/500 ML NS 30 UNIT in SALINE 1 500ML.BAG IV SCH (07:15)
--- NOTE | 2020-11-11 08:55 | P.PROBDLV ---
Vaginal Delivery Note - . Vaginal Delivery Note: She progressed to complete and pushing with spontaneous vaginal delivery of a viable female over an intact perineum. Following delivery of the head from left occiput anterior position gentle traction was used to deliver the remainder the baby. Mouth nares were then bulb suctioned and baby was placed on mother's abdomen where the umbilical cord was allowed to pulsate for 30 seconds prior to clamping and cutting. Nursery personnel was present to assume care. Placenta was then delivered intact Pitocin was added to the IV. scores were 9 and 9 at one and 5 minutes respectively weight is however pending. Both mother and baby appear stable.
[2020-11-11] MEDS ORDERED: diphenhydrAMINE 50 MG/ML 1 ML VIAL IVP PRN ×2 (13:12)
[2020-11-11] MEDS ORDERED: ZOLPIDEM 5 MG TAB PO PRN (13:12)
[2020-11-11] MEDS ORDERED: LANOLIN CREAM 5 GM TUBE TOPICAL PRN (13:12)
[2020-11-11] MEDS ORDERED: ACETAMINOPHEN TAB 325 MG TAB PO PRN (13:12)
[2020-11-11] MEDS ORDERED: SIMETHICONE 80 MG CHEWABLE PO PRN (13:12)
[2020-11-11] MEDS ORDERED: BENZOCAINE/MENTHOL SPRAY 1 GM/SPRAY AEROSOL TOPICAL PRN (13:12)
[2020-11-11] MEDS ORDERED: diphenhydrAMINE 50 MG CAP PO PRN (13:12)
[2020-11-11] MEDS ORDERED: HYDROCORTISONE 2.5% RECTAL CREAM 30 GM TUBE RECTAL PRN (13:12)
[2020-11-11] MEDS ORDERED: diphenhydrAMINE 25 MG CAP PO PRN (13:12)
[2020-11-11] MEDS: IBUPROFEN 600 MG TAB PO SCH ×2 (13:21→20:27)
[2020-11-11] MEDS: SENNOSIDES-DOCUSATE SODIUM 1 EACH TAB PO SCH (20:34)
[2020-11-12] MEDS: LABETALOL 100 MG TAB PO SCH ×2 (01:27→10:47)
[2020-11-12] MEDS: IBUPROFEN 600 MG TAB PO SCH ×3 (05:25→14:30)
[2020-11-12] MEDS: SENNOSIDES-DOCUSATE SODIUM 1 EACH TAB PO SCH (09:11)
--- NOTE | 2020-11-12 09:23 | P.DS ---
Providers Date of admission: 11/11/20 00:39 Expected date of discharge: 11/12/20 Attending physician: Dylon West Primary care physician: Stated None Hospital Course: Patient is doing very well day 1. She is ambulating, voiding and she is tolerating her diet. She voices no complaints. Vital signs are stable and afebrile. Heart regular, lungs clear, extremities without pain. Abdomen soft, uterus is firm and lochia is reported be light. Assessment day 1. Plan discharged home follow up with me in 1 week for blood pressure check continue blood pressure medication at home as directed. All the questions are answered for this time and otherwise discharge instructions were thoroughly reviewed. Patient Condition at Discharge: Good Plan - Discharge Summary New Discharge Prescriptions: New Ibuprofen [Motrin] 600 mg PO Q6HR PRN #30 tab PRN Reason: Pain No Action HYDROcodone/APAP 5-325MG [[place] 5-325] 5 mg PO DAILY PRN PRN Reason: Pain Labetalol [Trandate] 100 mg PO BID 30 Days #60 tablet Famotidine [Pepcid] 20 mg PO DAILY 30 Days #30 tablet Pnv No.95/Ferrous Fum/Folic AC [ Multivitamin Tablet] 1 tab PO DAILY Discharge Medication List HYDROcodone/APAP 5-325MG [[place] 5-325] 5 mg PO DAILY PRN 10/27/20 [History] Famotidine [Pepcid] 20 mg PO DAILY 30 Days #30 tablet 10/28/20 [Rx] Labetalol [Trandate] 100 mg PO BID 30 Days #60 tablet 10/28/20 [Rx] Pnv No.95/Ferrous Fum/Folic AC [ Multivitamin Tablet] 1 tab PO DAILY 11/11/20 [History] Ibuprofen [Motrin] 600 mg PO Q6HR PRN #30 tab 11/12/20 [Rx] Follow up Appointment(s)/Referral(s): Dylon West DO [Doctor of Osteopathic Medicine] - 1 Week Activity/Diet/Wound Care/Special Instructions: The lifting, limit stairs and driving, and pelvic rest. If any high temperatures, heavy bleeding, or severe pain call my office. Follow up in 1 week for blood pressure check and then again at normal 6 week
[2020-11-12 16:34] VITALS: BP 138/73; PULSE 75; RESP 16; TEMP 98
== END 2020-11-12 16:20 | disposition home or self-care (01) | DRG 807 ==
LOC: FBPOP 00:22 → 4FBP 00:39
PROVIDERS: ADMIT Obstetrics & Gynecology; ATTEND Obstetrics & Gynecology
PROC: 10E0XZZ Delivery of Products of Conception, External Approach (ICD-10-PCS; principal; 2020-11-11)
PROC: 00HU33Z Insertion of Infusion Device into Spinal Canal, Percutaneous Approach (ICD-10-PCS; principal; 2020-11-11)
PROC: 3E0R3NZ Introduction of Analgesics, Hypnotics, Sedatives into Spinal Canal, Percutaneous Approach (ICD-10-PCS; principal; 2020-11-11)
DX: O60.14X0 Preterm labor third trimester with preterm delivery third trimester, not applicable or unspecified (principal); Z37.0 Single live birth; O13.4 Gestational [pregnancy-induced] hypertension without significant proteinuria, complicating childbirth; O99.334 Smoking (tobacco) complicating childbirth; F17.201 Nicotine dependence, unspecified, in remission; O99.62 Diseases of the digestive system complicating childbirth; K21.9 Gastro-esophageal reflux disease without esophagitis; Z3A.36 36 weeks gestation of pregnancy; Z87.442 Personal history of urinary calculi; Z86.59 Personal history of other mental and behavioral disorders; Z86.39 Personal history of other endocrine, nutritional and metabolic disease
CPT/HCPCS: 59025; 80306; 85025; 86850; 86900; 86901; 88307; 99213

== ENCOUNTER → 2021-04-08 | Outpatient (CLI) | payer OTHER ==
--- NOTE | 2021-04-08 09:20 | XR ---
EXAMINATION TYPE: XR chest 2V DATE OF EXAM: 04/08/2021 COMPARISON: 10/20/2020 HISTORY: Chest pain TECHNIQUE: Frontal and lateral views of the chest are obtained. FINDINGS: There is no focal air space opacity. No evidence for pneumothorax. No pleural effusion. The cardiac silhouette size is within normal limits. The osseous structures are grossly intact. IMPRESSION: 1. No acute cardiopulmonary process.
[2021-04-08 10:26] LABS: Basophils % (A) 0 %; Eosinophils # (A) 0.2 k/uL (0-0.7); Eosinophils % (A) 2 %; HCT 42.2 % (34.0-46.0); HGB 14.3 gm/dL (11.4-16.0); Lymphocytes # (A) 1.6 k/uL (1.0-4.8); Lymphocytes % (A) 17 %; MCH 30.4 pg (25.0-35.0); MCHC 33.9 g/dL (31.0-37.0); MCV 89.6 fL (80.0-100.0); Monocytes # (A) 0.5 k/uL (0-1.0); Monocytes % (A) 5 %; Neutrophils # (A) 7.5 k/uL (1.3-7.7); Neutrophils % (A) 75 %; Platelet Count 254 k/uL (150-450); RDW 12.6 % (11.5-15.5); WBC 9.9 k/uL (3.8-10.6)
[2021-04-08 10:52] LABS: T4, Free (Free Thyroxine) 0.79 ng/dL (0.78-2.19)
[2021-04-08 21:39] LABS: % Iron Saturation 12.99 (12.00-45.00)
[2021-04-08 21:48] LABS: Folate, Serum 2.9 ng/mL
[2021-04-08 21:49] LABS: Ferritin 14.2 ng/mL (10.0-291.0)
== END | disposition home or self-care (01) ==
LOC: RADXRMAIN 08:47
PROVIDERS: ATTEND Physician Assistant
DX: R07.9 Chest pain, unspecified (principal); M94.0 Chondrocostal junction syndrome [Tietze]
CPT/HCPCS: 71046; 82607; 82728; 82746; 83540; 83550; 84439; 84443; 84481; 85025

== ENCOUNTER 2021-05-13 19:00 | Emergency (ER) | payer OTHER ==
[2021-05-13] MEDS ORDERED: SODIUM CHLORIDE 0.9% 1,000 ML IV STA (19:15)
--- NOTE | 2021-05-13 19:18 | ED ---
Abdominal Pain HPI - General Chief Complaint: Abdominal Pain Stated Complaint: Abdominal Pain, Time Seen by Provider: 05/13/21 19:15 Source: patient Mode of arrival: EMS Limitations: no limitations - History of Present Illness Initial Comments: Khadijah is a 26-year-old currently 6-7 weeks who presents to the ER today via ambulance for abdominal pain nausea and vomiting. Patient reports she had a positive urine test at home. She's not had any care for this yet. She is only 6 months and her last was complicated by severe abdominal pain and hyperemesis throughout the entire . She had 18 ER visits during that for this exact same complaint. - Related Data Home Medications Medication Instructions Recorded Confirmed HYDROcodone/APAP 5-325MG [[place] 5 mg PO DAILY PRN 10/27/20 11/11/20 5-325] Pnv No.95/Ferrous Fum/Folic AC 1 tab PO DAILY 11/11/20 11/11/20 [ Multivitamin Tablet] Previous Rx's Medication Instructions Recorded Famotidine [Pepcid] 20 mg PO DAILY 30 Days #30 tablet 10/28/20 Labetalol [Trandate] 100 mg PO BID 30 Days #60 tablet 10/28/20 Ibuprofen [Motrin] 600 mg PO Q6HR PRN #30 tab 11/12/20 Allergies Allergy/AdvReac Type Severity Reaction Status Date / Time No Known Allergies Allergy Verified 11/11/20 00:26 Review of Systems ROS Statement: Those systems with pertinent positive or pertinent negative responses have been documented in the HPI. ROS Other: All systems not noted in ROS Statement are negative. Past Medical History Past Medical History: Hypertension, Thyroid Disorder Additional Past Medical History / Comment(s): Hydradenitis suppertiva; Kidney stones History of Any Multi-Drug Resistant Organisms: None Reported Past Surgical History: No Surgical Hx Reported Additional Past Surgical History / Comment(s): cyst removed from buttocks two years ago, cystoscopy with right ureteroscopy and holmium laser lithotripsy on 09/19/2020 Past Anesthesia/Blood Transfusion Reactions: No Reported Reaction Past Psychological History: Anxiety, Depression Smoking Status: Current every day smoker, Heavy tobacco smoker Past Alcohol Use History: None Reported Past Drug Use History: Marijuana - Past Family History Mother Family Medical History: No Reported History General Exam - General Exam Comments Initial Comments: Physical Exam GENERAL: Patient is well-developed and well-nourished. Patient is nontoxic and well- hydrated and is in no distress. HENT: Normocephalic, Atraumatic. EYES: PERRL, EOMI PULMONARY: Unlabored respirations. No audible rales rhonchi or wheezing was noted. CARDIOVASCULAR: There is a regular rate and rhythm without any murmurs gallops or rubs. ABDOMEN: Soft and nontender with normal bowel sounds. SKIN: Skin is clear with no lesions or rashes and otherwise unremarkable. : Deferred NEUROLOGIC: Patient is alert and oriented x3. Moving all extremities spontaneously MUSCULOSKELETAL: Normal extremities with adequate strength and full range of motion. No lower extremity swelling or edema. No calf tenderness. PSYCHIATRIC: Normal psychiatric evaluation. Limitations: no limitations Course Vital Signs 05/13/21 05/13/21 19:10 20:18 Temperature 97.6 F Pulse Rate 62 57 L Respiratory 18 16 Rate Blood Pressure 150/96 150/85 O2 Sat by Pulse 100 99 Oximetry Medical Decision Making - Medical Decision Making Patient was seen and evaluated the patient was retching, bedside ultrasound revealed no free fluid in the abdomen suggestive of ectopic. Patient states she's had this pain and nausea and vomiting throughout her entire previous . Labs are obtained as mild leukocytosis, no other significant abnormalities. Patient treated IV fluids were Reglan and Benadryl. Patient fell asleep and was resting comfortably. 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 - Lab Data Result diagrams: 05/13/21 19:29 05/13/21 19:29 Lab Results 05/13/21 05/13/21 Range/Units 19:29 19:29 WBC 14.7 H (3.8-10.6) k/uL RBC 5.03 (3.80-5.40) m/uL Hgb 15.2 (11.4-16.0) gm/dL Hct 43.4 (34.0-46.0) % MCV 86.3 (80.0-100.0) fL MCH 30.2 (25.0-35.0) pg MCHC 35.0 (31.0-37.0) g/dL RDW 12.6 (11.5-15.5) % Plt Count 282 (150-450) k/uL MPV 7.5 Neutrophils % 84 % Lymphocytes % 9 % Monocytes % 5 % Eosinophils % 1 % Basophils % 0 % Neutrophils # 12.4 H (1.3-7.7) k/uL Lymphocytes # 1.3 (1.0-4.8) k/uL Monocytes # 0.8 (0-1.0) k/uL Eosinophils # 0.1 (0-0.7) k/uL Basophils # 0.0 (0-0.2) k/uL Sodium 135 L (137-145) mmol/L Potassium 3.7 (3.5-5.1) mmol/L Chloride 105 (98-107) mmol/L Carbon Dioxide 16 L (22-30) mmol/L Anion Gap 14 mmol/L BUN 12 (7-17) mg/dL Creatinine 0.74 (0.52-1.04) mg/dL Est GFR (CKD-EPI)AfAm >90 (>60 ml/min/1.73 sqM) Est GFR (CKD-EPI)NonAf >90 (>60 ml/min/1.73 sqM) Glucose 102 H (74-99) mg/dL Calcium 10.1 (8.4-10.2) mg/dL Total Bilirubin 1.3 (0.2-1.3) mg/dL AST 22 (14-36) U/L ALT 14 (4-34) U/L Alkaline Phosphatase 75 (38-126) U/L Total Protein 8.0 (6.3-8.2) g/dL Albumin 4.8 (3.5-5.0) g/dL Lipase 87 (23-300) U/L HCG, Quant 88655.1 mIU/mL Disposition Clinical Impression: Nausea and vomiting during Disposition: HOME SELF-CARE Condition: Stable Is patient prescribed a controlled substance at d/c from ED?: No Referrals: Kt Brooks MD [Primary Care Provider] - 1-2 days
[2021-05-13 19:54] LABS: Basophils % (A) 0 %; Eosinophils # (A) 0.1 k/uL (0-0.7); Eosinophils % (A) 1 %; HCT 43.4 % (34.0-46.0); HGB 15.2 gm/dL (11.4-16.0); Lymphocytes # (A) 1.3 k/uL (1.0-4.8); Lymphocytes % (A) 9 %; MCH 30.2 pg (25.0-35.0); MCV 86.3 fL (80.0-100.0); Mean Platelet Volume 7.5; Monocytes # (A) 0.8 k/uL (0-1.0); Monocytes % (A) 5 %; Neutrophils # (A) 12.4 k/uL (1.3-7.7); Neutrophils % (A) 84 %; Platelet Count 282 k/uL (150-450); RBC 5.03 m/uL (3.80-5.40); RDW 12.6 % (11.5-15.5); WBC 14.7 k/uL (3.8-10.6)
[2021-05-13] MEDS ORDERED: METOCLOPRAMIDE 5 MG/ML 2 ML VIAL IVP STA (19:55)
[2021-05-13] MEDS ORDERED: diphenhydrAMINE 50 MG/ML 1 ML VIAL IVP STA (19:55)
[2021-05-13 20:08] LABS: ALT 14 U/L (4-34); AST 22 U/L (14-36); African American GFR (CKD) >90 (>60 ml/min/1.73 sqM); Albumin 4.8 g/dL (3.5-5.0); Alkaline Phosphatase 75 U/L (38-126); Anion Gap 14 mmol/L; Blood Urea Nitrogen 12 mg/dL (7-17); Calcium 10.1 mg/dL (8.4-10.2); Carbon Dioxide 16 mmol/L (22-30); Chloride 105 mmol/L (98-107); Glucose 102 mg/dL (74-99); Lipase 87 U/L (23-300); Non-African American GFR(CKD) >90 (>60 ml/min/1.73 sqM); Potassium 3.7 mmol/L (3.5-5.1); Sodium 135 mmol/L (137-145); Total Bilirubin 1.3 mg/dL (0.2-1.3)
[2021-05-13 20:53] LABS: HCG,Quantitative Serum 68612.1 mIU/mL
[2021-05-13 21:46] VITALS: BP 123/72; PULSE 76; RESP 18; TEMP 98.2
== END 2021-05-13 21:29 | disposition home or self-care (01) ==
LOC: EC 19:00
DX: O26.891 Other specified pregnancy related conditions, first trimester (principal); O21.9 Vomiting of pregnancy, unspecified; O16.1 Unspecified maternal hypertension, first trimester; E07.9 Disorder of thyroid, unspecified; F41.9 Anxiety disorder, unspecified; F32.9 Major depressive disorder, single episode, unspecified; F17.200 Nicotine dependence, unspecified, uncomplicated; F12.90 Cannabis use, unspecified, uncomplicated; Z3A.01 Less than 8 weeks gestation of pregnancy
CPT/HCPCS: 99284; 96374; 96375; 96361; 36415; 80053; 83690; 85025; 84702; J1200; J2765

== ENCOUNTER 2021-05-15 01:46 | Emergency (ER) | payer OTHER ==
[2021-05-15 01:59] VITALS: BP 159/99; PULSE 91; RESP 19; TEMP 97.9
[2021-05-15] MEDS ORDERED: METOCLOPRAMIDE 5 MG/ML 2 ML VIAL IVP STA (02:21)
[2021-05-15] MEDS ORDERED: SODIUM CHLORIDE 0.9% 1,000 ML IV STA (02:21)
[2021-05-15 03:17] LABS: Basophils % (A) 0 %; Eosinophils % (A) 0 %; HCT 44.9 % (34.0-46.0); HGB 16.1 gm/dL (11.4-16.0); Hyperchromasia Slight; Lymphocytes # (A) 1.6 k/uL (1.0-4.8); Lymphocytes % (A) 11 %; MCH 30.7 pg (25.0-35.0); MCHC 35.9 g/dL (31.0-37.0); MCV 85.7 fL (80.0-100.0); Monocytes # (A) 0.9 k/uL (0-1.0); Monocytes % (A) 6 %; Neutrophils # (A) 12.3 k/uL (1.3-7.7); Neutrophils % (A) 82 %; Platelet Count 259 k/uL (150-450); RBC 5.24 m/uL (3.80-5.40); RDW 13.1 % (11.5-15.5)
[2021-05-15 03:31] LABS: ALT 11 U/L (4-34); AST 18 U/L (14-36); African American GFR (CKD) >90 (>60 ml/min/1.73 sqM); Albumin 4.7 g/dL (3.5-5.0); Alkaline Phosphatase 75 U/L (38-126); Amylase 73 U/L (30-110); Anion Gap 14 mmol/L; Blood Urea Nitrogen 10 mg/dL (7-17); Calcium 10.2 mg/dL (8.4-10.2); Carbon Dioxide 19 mmol/L (22-30); Chloride 102 mmol/L (98-107); Glucose 97 mg/dL (74-99); Lipase 99 U/L (23-300); Non-African American GFR(CKD) >90 (>60 ml/min/1.73 sqM); Potassium 3.4 mmol/L (3.5-5.1); Sodium 135 mmol/L (137-145); Total Bilirubin 1.3 mg/dL (0.2-1.3); Total Protein 7.8 g/dL (6.3-8.2)
--- NOTE | 2021-05-15 03:33 | ED ---
Nausea/Vomiting/Diarrhea HPI - General Chief complaint: Nausea/Vomiting/Diarrhea Stated complaint: Abd Pain, 7 wks Time Seen by Provider: 05/15/21 02:21 Source: patient Mode of arrival: wheelchair - History of Present Illness MD complaint: nausea, vomiting -: hour(s) Description of Vomiting: food contents Associated Abdominal Pain: No Consistency: constant Improves with: none Worsens with: none Associated Symptoms: denies other symptoms - Related Data Home Medications Medication Instructions Recorded Confirmed HYDROcodone/APAP 5-325MG [[place] 5 mg PO DAILY PRN 10/27/20 11/11/20 5-325] Pnv No.95/Ferrous Fum/Folic AC 1 tab PO DAILY 11/11/20 11/11/20 [ Multivitamin Tablet] Previous Rx's Medication Instructions Recorded Famotidine [Pepcid] 20 mg PO DAILY 30 Days #30 tablet 10/28/20 Labetalol [Trandate] 100 mg PO BID 30 Days #60 tablet 10/28/20 Ibuprofen [Motrin] 600 mg PO Q6HR PRN #30 tab 11/12/20 Doxylamine/Pyridoxine HCl (B6) 1 tab PO BID #20 tab 05/15/21 [Diclegis Dr 10-10 mg Tablet] Allergies Allergy/AdvReac Type Severity Reaction Status Date / Time No Known Allergies Allergy Verified 05/15/21 01:58 Review of Systems ROS Statement: Those systems with pertinent positive or pertinent negative responses have been documented in the HPI. ROS Other: All systems not noted in ROS Statement are negative. Constitutional: Denies: fever, chills, weakness Respiratory: Denies: cough, dyspnea Cardiovascular: Denies: chest pain, palpitations, edema Gastrointestinal: Reports: nausea, vomiting. Denies: abdominal pain, diarrhea, constipation, hematemesis, melena, hematochezia Genitourinary: Denies: dysuria, hematuria, discharge, abnormal menses Musculoskeletal: Denies: back pain Skin: Denies: rash Neurological: Denies: headache, weakness Past Medical History Past Medical History: Hypertension, Thyroid Disorder Additional Past Medical History / Comment(s): Hydradenitis suppertiva; Kidney stones History of Any Multi-Drug Resistant Organisms: None Reported Past Surgical History: No Surgical Hx Reported Additional Past Surgical History / Comment(s): cyst removed from buttocks two years ago, cystoscopy with right ureteroscopy and holmium laser lithotripsy on 09/19/2020 Past Anesthesia/Blood Transfusion Reactions: No Reported Reaction Past Psychological History: Anxiety, Depression Smoking Status: Current every day smoker, Heavy tobacco smoker Past Alcohol Use History: None Reported Past Drug Use History: Marijuana - Past Family History Mother Family Medical History: No Reported History General Exam General appearance: alert, in no apparent distress Head exam: Present: atraumatic, normocephalic Eye exam: Present: normal appearance. Absent: scleral icterus, conjunctival injection ENT exam: Present: normal oropharynx Neck exam: Present: normal inspection Respiratory exam: Present: normal lung sounds bilaterally. Absent: respiratory distress, wheezes, rales, rhonchi, stridor Cardiovascular Exam: Present: regular rate, normal rhythm, normal heart sounds. Absent: systolic murmur, diastolic murmur, rubs, gallop GI/Abdominal exam: Present: soft, normal bowel sounds. Absent: distended, tenderness, guarding, rebound, rigid, mass, pulsatile mass, hernia Extremities exam: Present: normal inspection, normal capillary refill. Absent: pedal edema, calf tenderness Back exam: Present: normal inspection. Absent: CVA tenderness (R), CVA tenderness (L) Neurological exam: Present: alert Skin exam: Present: warm, dry, intact, normal color. Absent: rash Course Vital Signs 05/15/21 01:56 Temperature 97.9 F Pulse Rate 91 Respiratory 19 Rate Blood Pressure 159/99 O2 Sat by Pulse 100 Oximetry Medical Decision Making - Lab Data Result diagrams: 05/15/21 02:49 05/15/21 02:49 Lab Results 05/15/21 05/15/21 Range/Units 02:49 02:49 WBC 15.0 H (3.8-10.6) k/uL RBC 5.24 (3.80-5.40) m/uL Hgb 16.1 H (11.4-16.0) gm/dL Hct 44.9 (34.0-46.0) % MCV 85.7 (80.0-100.0) fL MCH 30.7 (25.0-35.0) pg MCHC 35.9 (31.0-37.0) g/dL RDW 13.1 (11.5-15.5) % Plt Count 259 (150-450) k/uL MPV 8.0 Neutrophils % 82 % Lymphocytes % 11 % Monocytes % 6 % Eosinophils % 0 % Basophils % 0 % Neutrophils # 12.3 H (1.3-7.7) k/uL Lymphocytes # 1.6 (1.0-4.8) k/uL Monocytes # 0.9 (0-1.0) k/uL Eosinophils # 0.0 (0-0.7) k/uL Basophils # 0.0 (0-0.2) k/uL Hyperchromasia Slight Sodium 135 L (137-145) mmol/L Potassium 3.4 L (3.5-5.1) mmol/L Chloride 102 (98-107) mmol/L Carbon Dioxide 19 L (22-30) mmol/L Anion Gap 14 mmol/L BUN 10 (7-17) mg/dL Creatinine 0.74 (0.52-1.04) mg/dL Est GFR (CKD-EPI)AfAm >90 (>60 ml/min/1.73 sqM) Est GFR (CKD-EPI)NonAf >90 (>60 ml/min/1.73 sqM) Glucose 97 (74-99) mg/dL Calcium 10.2 (8.4-10.2) mg/dL Total Bilirubin 1.3 (0.2-1.3) mg/dL AST 18 (14-36) U/L ALT 11 (4-34) U/L Alkaline Phosphatase 75 (38-126) U/L Total Protein 7.8 (6.3-8.2) g/dL Albumin 4.7 (3.5-5.0) g/dL Amylase 73 (30-110) U/L Lipase 99 (23-300) U/L Disposition Clinical Impression: Hyperemesis gravidarum Disposition: HOME SELF-CARE Condition: Fair Instructions (If sedation given, give patient instructions): Hyperemesis Gravidarum (ED) Prescriptions: Doxylamine/Pyridoxine HCl (B6) [Justine Odom 10-10 mg Tablet] 1 tab PO BID #20 tab Is patient prescribed a controlled substance at d/c from ED?: No Referrals: Kt Brooks MD [Primary Care Provider] - 1-2 days
== END 2021-05-15 03:45 | disposition home or self-care (01) ==
LOC: EC 01:46
DX: O21.0 Mild hyperemesis gravidarum (principal); O10.011 Pre-existing essential hypertension complicating pregnancy, first trimester; Z3A.01 Less than 8 weeks gestation of pregnancy; O99.331 Smoking (tobacco) complicating pregnancy, first trimester; F17.200 Nicotine dependence, unspecified, uncomplicated; O99.321 Drug use complicating pregnancy, first trimester; F12.90 Cannabis use, unspecified, uncomplicated; Z79.1 Long term (current) use of non-steroidal anti-inflammatories (NSAID)
CPT/HCPCS: 80053; 82150; 83690; 85025; 99284; 96374; 96361; J2765

== ENCOUNTER 2024-06-16 07:20 | Inpatient (IN) | payer OTHER ==
[2024-06-16] MEDS: ONDANSETRON 4 MG/2 ML VIAL IVP STA (07:45)
[2024-06-16] MEDS: SODIUM CHLORIDE 0.9% 1,000 ML IV STA (07:46)
[2024-06-16] MEDS: HYDROmorphone 0.5 MG/0.5 ML SYRINGE IVP STA (07:47)
--- NOTE | 2024-06-16 07:55 | ED ---
Abdominal Pain HPI - General Chief Complaint: Abdominal Pain Stated Complaint: ABD pain/vomitting Time Seen by Provider: 06/16/24 07:29 Source: patient, family, RN notes reviewed Mode of arrival: wheelchair Limitations: no limitations - History of Present Illness Initial Comments: This is a 29-year-old female who presents to the emergency department for abdominal pain. States that she was fine throughout the day yesterday and had gone out to eat. She then developed abdominal pain later that evening. Pain is in the mid to upper abdomen, but not worse on any particular side. States that pain is starting to radiate into her back as well. She has been unable to control her nausea or vomiting since this began. Denies any fevers or chills. Denies any changes in bowel or bladder habits. States that is possible, as she did miss a period. However, her periods have been irregular lately. MD Complaint: abdominal pain - Related Data Home Medications Medication Instructions Recorded Confirmed No Known Home Medications 06/16/24 06/16/24 Allergies Allergy/AdvReac Type Severity Reaction Status Date / Time No Known Allergies Allergy Verified 06/16/24 10:37 Review of Systems ROS Statement: Those systems with pertinent positive or pertinent negative responses have been documented in the HPI. ROS Other: All systems not noted in ROS Statement are negative. Past Medical History Past Medical History: Hypertension, Thyroid Disorder Additional Past Medical History / Comment(s): Hydradenitis suppertiva; Kidney stones History of Any Multi-Drug Resistant Organisms: None Reported Past Surgical History: No Surgical Hx Reported Additional Past Surgical History / Comment(s): cyst removed from buttocks two years ago, cystoscopy with right ureteroscopy and holmium laser lithotripsy on 09/19/2020 Past Anesthesia/Blood Transfusion Reactions: No Reported Reaction Past Psychological History: Anxiety, Depression Smoking Status: Current every day smoker, Heavy tobacco smoker Past Alcohol Use History: None Reported Past Drug Use History: Marijuana - Past Family History Mother Family Medical History: No Reported History General Exam Limitations: no limitations General appearance: alert, in distress Head exam: Present: atraumatic, normocephalic, normal inspection Respiratory exam: Present: normal lung sounds bilaterally. Absent: respiratory distress, wheezes, rales, rhonchi, stridor Cardiovascular Exam: Present: regular rate, normal rhythm, normal heart sounds. Absent: systolic murmur, diastolic murmur, rubs, gallop, clicks GI/Abdominal exam: Present: soft, tenderness (Mid to upper abdomen), normal bowel sounds. Absent: distended Neurological exam: Present: alert, oriented X3, CN II-XII intact Psychiatric exam: Present: normal affect, normal mood Skin exam: Present: warm, dry, intact, normal color. Absent: rash Course Vital Signs 06/16/24 06/16/24 06/16/24 07:26 07:51 08:30 Temperature 97.6 F Pulse Rate 95 Respiratory 18 16 18 Rate Blood Pressure 161/108 159/109 171/84 O2 Sat by Pulse 95 Oximetry 06/16/24 06/16/24 06/16/24 09:44 10:21 10:49 Temperature Pulse Rate 55 L 43 L 47 L Respiratory 18 18 18 Rate Blood Pressure 169/113 166/102 160/99 O2 Sat by Pulse 98 98 97 Oximetry 06/16/24 06/16/24 11:35 13:33 Temperature 98.9 F Pulse Rate 69 70 Respiratory 18 16 Rate Blood Pressure 111/96 168/99 O2 Sat by Pulse 99 95 Oximetry Medical Decision Making - Medical Decision Making This is a 29 year old female who presents to the emergency department for abdominal pain. Was pt. sent in by a medical professional or institution? @ -No Did you speak to anyone other than the patient for history? @ -No Did you review nursing and triage notes? @ -Yes, and I agree, it is accurate with regards to the patient's symptoms. Were old charts reviewed? @ -No Differential Diagnosis? @ -Differential Abdominal Pain Women: Appendicitis, Cholecystitis, diverticulosis, ischemic bowel, pancreatitis, hepatitis, UTI, gastroenteritis, AAA, incarcerated hernia, bowel obstruction, constipation, inflammatory bowel, hepatitis, peptic ulcer disease, splenic infarction, perforated viscus, vulvitis, ovarian torsion, PID, kidney stone, placenta abruption, this is not meant to be an all-inclusive list EKG interpreted by me (3pts min.)? @ -Not obtained X-rays interpreted by me (1pt min.)? @ -Not obtained CT interpreted by me (1pt min.)? @ -CT scan of the abdomen and pelvis obtained. My interpretation identifies fluid around the pancreatic head. U/S interpreted by me (1pt. min.)? @ -Gallbladder ultrasound obtained. My interpretation identifies no evidence of cholelithiasis. What testing was considered but not performed? (CT, X-rays, U/S, labs)? Why? @ -None What meds were considered but not given? Why? @ -None Did you discuss the management of the patient with other professionals? @ -Yes, Dr. Cam, who accepts the patient for admission Did you reconcile home meds? @ -No Was smoking cessation discussed for >3mins.? @ -I discussed smoking cessation for greater than 3 minutes. The risk of smoking were discussed with the patient including but not limited to risks of cancer, stroke, coronary artery disease and COPD. Also discussed with patient were multiple methods of quitting smoking. Lastly we discussed the financial cost of smoking. Was critical care preformed (if so, how long)? @ -No Were there social determinants of health that impacted care today? How? (Homelessness, low income, unemployed, alcoholism, drug addiction, transportation, low edu. Level, literacy, decrease access to med. care, detention, rehab)? @ -No Was there de-escalation of care discussed even if they declined? (Discuss DNR or withdrawal of care, Hospice)? @ -No What co-morbidities impacted this encounter? (DM, HTN, Smoking, COPD, CAD, Cancer, CVA, Hep., AIDS, mental health diagnosis, sleep apnea, morbid obesity)? @ -Smoking Was patient admitted / discharged? @ -Admitted. Lab work demonstrates leukocytosis with a white blood cell count of 12.3. Lab work also consistent with pancreatitis with an amylase of 340 and lipase of 3881. Bilirubin, AST, and ALT elevated. Alkaline phosphatase within normal limits. Patient reports fairly frequent alcohol consumption, most recently 2 days ago when she had several shots of vodka. CT scan of the abdomen and pelvis obtained initially demonstrating acute pancreatitis. There is no pseudocyst formation or abscess formation. Gallbladder was visualized as normal. We did obtain a gallbladder ultrasound for further evaluation and this revealed no evidence of cholelithiasis or CBD dilation. She does have moderate fatty infiltration of the liver and hepatomegaly. LFT elevation likely related to alcohol intake and fatty infiltration of the liver. We do not have any prior LFTs for comparison since 2020. Presentation most likely related to alcoholic pancreatitis and GI intervention likely not indicated at this time. Patient admitted to medicine for management of the pancreatitis. Maintenance fluids initiated and will keep her n.p.o. for the meantime. Surgery consulted per admitting team's request. Case discussed with ED attending Dr. Duncan. Undiagnosed new problem with uncertain prognosis? @ -None Drug Therapy requiring intensive monitoring for toxicity (Heparin, Nitro, Insulin, Cardizem)? @ -None Were any procedures done? @ -None Diagnosis/symptom? @ -Alcohol induced pancreatitis Acute, or Chronic, or Acute on Chronic? @ -Acute Uncomplicated (without systemic symptoms) or Complicated (systemic symptoms)? @ -Complicated Side effects of treatment? @ -None Exacerbation, Progression, or Severe Exacerbation] @ -Not applicable Poses a threat to life or bodily function? @ -Yes, can lead to life threatening infection and complications - Lab Data Result diagrams: 06/16/24 07:49 06/16/24 07:49 Lab Results 06/16/24 06/16/24 06/16/24 Range/Units 07:49 07:49 07:49 WBC 12.3 H (3.8-10.6) k/uL RBC 4.94 (3.80-5.40) m/uL Hgb 18.8 H (11.4-16.0) gm/dL Hct 54.6 H (34.0-46.0) % MCV 110.4 H (80.0-100.0) fL MCH 38.1 H (25.0-35.0) pg MCHC 34.5 (31.0-37.0) g/dL RDW 13.9 (11.5-15.5) % Plt Count 230 (150-450) k/uL MPV 7.7 Neutrophils % 81 % Lymphocytes % 12 % Monocytes % 5 % Eosinophils % 1 % Basophils % 0 % Neutrophils # 10.0 H (1.3-7.7) k/uL Lymphocytes # 1.5 (1.0-4.8) k/uL Monocytes # 0.7 (0-1.0) k/uL Eosinophils # 0.1 (0-0.7) k/uL Basophils # 0.1 (0-0.2) k/uL Manual Slide Review Performed Macrocytosis Marked A Sodium 142 (137-145) mmol/L Potassium 4.0 (3.5-5.1) mmol/L Chloride 108 H (98-107) mmol/L Carbon Dioxide 21 L (22-30) mmol/L Anion Gap 13 mmol/L BUN 8 (7-17) mg/dL Creatinine 0.96 (0.52-1.04) mg/dL Est GFR (CKD-EPI)AfAm >90 (>60 ml/min/1.73 sqM) Est GFR (CKD-EPI)NonAf 81 (>60 ml/min/1.73 sqM) Glucose 89 (74-99) mg/dL Plasma Lactic Acid Kartik 1.9 (0.7-2.0) mmol/L Calcium 10.2 (8.4-10.2) mg/dL Total Bilirubin 1.8 H (0.2-1.3) mg/dL AST 166 H (14-36) U/L ALT 144 H (4-34) U/L Alkaline Phosphatase 88 (38-126) U/L Total Protein 8.9 H (6.3-8.2) g/dL Albumin 5.1 H (3.5-5.0) g/dL Amylase 340 H* (30-110) U/L Lipase 3881 H (23-300) U/L HCG, Qual Not Detected 06/16/24 Range/Units 07:49 WBC (3.8-10.6) k/uL RBC (3.80-5.40) m/uL Hgb (11.4-16.0) gm/dL Hct (34.0-46.0) % MCV (80.0-100.0) fL MCH (25.0-35.0) pg MCHC (31.0-37.0) g/dL RDW (11.5-15.5) % Plt Count (150-450) k/uL MPV Neutrophils % % Lymphocytes % % Monocytes % % Eosinophils % % Basophils % % Neutrophils # (1.3-7.7) k/uL Lymphocytes # (1.0-4.8) k/uL Monocytes # (0-1.0) k/uL Eosinophils # (0-0.7) k/uL Basophils # (0-0.2) k/uL Manual Slide Review Macrocytosis Sodium (137-145) mmol/L Potassium (3.5-5.1) mmol/L Chloride (98-107) mmol/L Carbon Dioxide (22-30) mmol/L Anion Gap mmol/L BUN (7-17) mg/dL Creatinine (0.52-1.04) mg/dL Est GFR (CKD-EPI)AfAm (>60 ml/min/1.73 sqM) Est GFR (CKD-EPI)NonAf (>60 ml/min/1.73 sqM) Glucose (74-99) mg/dL Plasma Lactic Acid Kartik (0.7-2.0) mmol/L Calcium (8.4-10.2) mg/dL Total Bilirubin (0.2-1.3) mg/dL AST (14-36) U/L ALT (4-34) U/L Alkaline Phosphatase (38-126) U/L Total Protein (6.3-8.2) g/dL Albumin (3.5-5.0) g/dL Amylase (30-110) U/L Lipase (23-300) U/L HCG, Qual Not Detected - Radiology Data Radiology results: report reviewed, image reviewed Disposition Clinical Impression: Acute alcoholic pancreatitis, Nicotine dependence Disposition: ADMITTED IP TO THIS HOSP
[2024-06-16 08:00] LABS: Basophils # (A) 0.1 k/uL (0-0.2); Basophils % (A) 0 %; Eosinophils # (A) 0.1 k/uL (0-0.7); Eosinophils % (A) 1 %; HCT 54.6 % (34.0-46.0); HGB 18.8 gm/dL (11.4-16.0); Lymphocytes # (A) 1.5 k/uL (1.0-4.8); Lymphocytes % (A) 12 %; MCH 38.1 pg (25.0-35.0); MCHC 34.5 g/dL (31.0-37.0); MCV 110.4 fL (80.0-100.0); Macrocytosis Marked; Mean Platelet Volume 7.7; Monocytes # (A) 0.7 k/uL (0-1.0); Monocytes % (A) 5 %; Neutrophils % (A) 81 %; Platelet Count 230 k/uL (150-450); RBC 4.94 m/uL (3.80-5.40); RDW 13.9 % (11.5-15.5); WBC 12.3 k/uL (3.8-10.6)
[2024-06-16 08:10] LABS: HCG,Qualitative Serum Not Detected
[2024-06-16 08:19] LABS: ALT 144 U/L (4-34); AST 166 U/L (14-36); African American GFR (CKD) >90 (>60 ml/min/1.73 sqM); Albumin 5.1 g/dL (3.5-5.0); Alkaline Phosphatase 88 U/L (38-126); Anion Gap 13 mmol/L; Blood Urea Nitrogen 8 mg/dL (7-17); Calcium 10.2 mg/dL (8.4-10.2); Carbon Dioxide 21 mmol/L (22-30); Chloride 108 mmol/L (98-107); Glucose 89 mg/dL (74-99); Non-African American GFR(CKD) 81 (>60 ml/min/1.73 sqM); Sodium 142 mmol/L (137-145); Total Bilirubin 1.8 mg/dL (0.2-1.3); Total Protein 8.9 g/dL (6.3-8.2)
[2024-06-16 08:51] LABS: Amylase 340 U/L (30-110)
[2024-06-16] MEDS: HYDROmorphone 1 MG/ML 1 ML SYRINGE IVP STA ×2 (08:51→10:09)
--- NOTE | 2024-06-16 08:52 | CT ---
EXAMINATION TYPE: CT abdomen pelvis w con DATE OF EXAM: 06/16/2024 8:32 AM COMPARISON: None. CLINICAL INDICATION: Female, 29 years old with history of Abdominal pain, acute, nonlocalized, abdomi nal pain, nausea and vomiting, TECHNIQUE: Axial images were obtained from above the diaphragm to the pubic rami in the axial plane a t 5 mm thick sections. Reconstructed images are reviewed on the computer in the coronal plane. CONTRAST: 100ml mL of Isovue 370. Study performed without Oral Contrast DLP: 1665 mGycm, Automated exposure control for dose reduction was used. FINDINGS: Limited CT sections are obtained the lung bases. The lung bases are clear. CT ABDOMEN: Liver: Normal Spleen: Normal Pancreas: Pancreas head is slightly hypodense with surrounding fluid. Findings can be compatible with acute pancreatitis. Tail of the pancreas appears within normal limits. No abscess formation. No pseu docyst formation. Adrenal glands: The adrenal glands are normal. Gallbladder: Normal Kidneys: No masses are evident. No hydronephrosis is present. No cysts are present. Delayed images were obtained through the kidneys, which remain unremarkable. Aorta: Normal Inferior vena cava: Normal. CT PELVIS: Loops of bowel within the abdomen and pelvis are normal. Study is lateral contrast limiting bowel evaluation. Appendix: Normal as visualized. Urinary bladder: Normal. Genitourinary structures: Uterus is normal. Adnexa are unremarkable Osseous structures: No suspicious lytic or sclerotic lesions. IMPRESSION: 1. Acute pancreatitis with fluid surrounding the head and proximal body. No pseudocyst formation or abscess formation identified at this time. Correlate with laboratory results. [facility], , 06/16/2024 8:50 AM
[2024-06-16 09:03] LABS: Lipase 3881 U/L (23-300)
--- NOTE | 2024-06-16 09:37 | US ---
EXAMINATION TYPE: US gallbladder DATE OF EXAM: 06/16/2024 COMPARISON: NONE CLINICAL INDICATION: Female, 29 years old with history of Epigastric pain, pancreatitis, eval for gal lstones; Patient had severe abdominal pain onset last night - CT today showed pancreatitis TECHNIQUE: Grayscale and color Doppler imaging of the right upper quadrant was performed. FINDINGS: EXAM MEASUREMENTS: Liver Length: 20.2 cm Gallbladder Wall: 0.2 cm CBD: 0.3 cm Right Kidney: 12.1 x 4.7 x 5.1 cm SPANISH INTERPRETER NOTES: Pancreas: Tail obscured by overlying bowel gas. Patient's known pancreatitis not as well appreciated Liver: Limited visualization, WNL as visualized Gallbladder: Limited visualization, WNL as visualized Evidence for sonographic Hanks's sign: Patient not able to handle any probe pressure due to pancr eatitis CBD: wnl Right Kidney: Limited visualization, WNL as visualized Patient in severe pain throughout exam - unable to hold breath in or handle probe pressure due to jessica creatitis IMPRESSION: 1. Moderate fatty infiltration of the liver and hepatomegaly. 2. Unable to visualize known pancreatitis well on ultrasound. [facility], , 06/16/2024 9:35 AM
[2024-06-16] MEDS: PROCHLORPERAZINE INJ 10 MG/2 ML VIAL IVP STA (10:06)
[2024-06-16] MEDS ORDERED: ACETAMINOPHEN TAB 325 MG TAB PO PRN (10:11)
[2024-06-16] MEDS ORDERED: NALOXONE 0.4 MG/ML 1 ML VIAL IV PRN (10:11)
[2024-06-16] MEDS: LACTATED RINGERS 1,000 ML IV ONE (10:18)
[2024-06-16 13:02] LABS: Appearance,Urine Clear (Clear); Bilirubin,Urine Negative (Negative); Blood,Urine Negative (Negative); Color,Urine Yellow; Glucose,Urine (UA) Negative (Negative); Ketones,Urine 3+ (Negative); Leukocyte Esterase,Urine Negative (Negative); Nitrite,Urine Negative (Negative); PH, Urine 6.5 (5.0-8.0); Protein,Urine Trace (Negative); Urobilinogen,Urine <2.0 mg/dL (<2.0)
[2024-06-16] MEDS: SODIUM CHLORIDE 0.9% 1,000 ML IV SCH (13:08)
[2024-06-16 13:10] LABS: Specific Gravity,Urine >1.050 (1.001-1.035)
[2024-06-16] MEDS: HYDROmorphone 1 MG/ML 1 ML SYRINGE IVP PRN (13:32)
[2024-06-16] MEDS: KETOROLAC 15 MG/ML 1 ML VIAL IVP PRN (14:11)
--- NOTE | 2024-06-16 16:21 | P.GSCN ---
History of Present Illness Consult date: 06/16/24 History of present illness: Patient is a 29-year-old female who presents with an acute onset of epigastric pain. Patient states that she had consumed alcohol approximately 1 to 2 days ago and states that since then she has worsening epigastric pain. She states this pain radiates between her shoulder blades in her back. She denies any prior episodes such as this. She states that in the past she has had episodes of epigastric pain but states have not been as severe as her current bout. She denies any hematemesis. No sick contacts or travel. She states that she has nausea and emesis associated with the pain. She has been able to keep a bland p.o. diet down. And states that her pain is worse with p.o. intake. No fevers or chills. No shortness of breath or chest pain. No headache or blurry vision. She states that she consumes alcohol 2-3 times a week. She states that she has previously undergone alcoholic withdrawal symptoms but has never had fulminant delirium tremens. Review of Systems Negative except for as stated above Past Medical History Past Medical History: Hypertension, Thyroid Disorder Additional Past Medical History / Comment(s): Hydradenitis suppertiva; Kidney stones History of Any Multi-Drug Resistant Organisms: None Reported Past Surgical History: No Surgical Hx Reported Additional Past Surgical History / Comment(s): cyst removed from buttocks two years ago, cystoscopy with right ureteroscopy and holmium laser lithotripsy on 09/19/2020 Past Anesthesia/Blood Transfusion Reactions: No Reported Reaction Past Psychological History: Anxiety, Depression Smoking Status: Current every day smoker, Heavy tobacco smoker Past Alcohol Use History: None Reported Past Drug Use History: Marijuana - Past Family History Mother Family Medical History: No Reported History Medications and Allergies Home Medications Medication Instructions Recorded Confirmed Type No Known Home Medications 06/16/24 06/16/24 History Allergies Allergy/AdvReac Type Severity Reaction Status Date / Time No Known Allergies Allergy Verified 06/16/24 10:37 Surgical - Exam Vital Signs Temp Pulse Resp BP Pulse Ox 97.6 F 95 18 161/108 95 06/16/24 07:26 06/16/24 07:26 06/16/24 07:26 06/16/24 07:26 06/16/24 07:26 Gen: AxO, NAD Pulm: non-labored respirations Abd: soft, moderately tender in the epigastrium. No right upper quadrant pain. Hanks sign negative. non-distended. No guarding/rebound/rigidity Extrem: no edema seen Results - Labs 06/16/24 07:49 06/16/24 07:49 Abnormal Lab Results - Last 24 Hours (Table) 06/16/24 06/16/24 Range/Units 07:49 07:49 WBC 12.3 H (3.8-10.6) k/uL Hgb 18.8 H (11.4-16.0) gm/dL Hct 54.6 H (34.0-46.0) % MCV 110.4 H (80.0-100.0) fL MCH 38.1 H (25.0-35.0) pg Neutrophils # 10.0 H (1.3-7.7) k/uL Macrocytosis Marked A Chloride 108 H (98-107) mmol/L Carbon Dioxide 21 L (22-30) mmol/L Total Bilirubin 1.8 H (0.2-1.3) mg/dL AST 166 H (14-36) U/L ALT 144 H (4-34) U/L Total Protein 8.9 H (6.3-8.2) g/dL Albumin 5.1 H (3.5-5.0) g/dL Amylase 340 H* (30-110) U/L Lipase 3881 H (23-300) U/L Diabetes panel 06/16/24 Range/Units 07:49 Sodium 142 (137-145) mmol/L Potassium 4.0 (3.5-5.1) mmol/L Chloride 108 H (98-107) mmol/L Carbon Dioxide 21 L (22-30) mmol/L BUN 8 (7-17) mg/dL Creatinine 0.96 (0.52-1.04) mg/dL Glucose 89 (74-99) mg/dL Calcium 10.2 (8.4-10.2) mg/dL AST 166 H (14-36) U/L ALT 144 H (4-34) U/L Alkaline Phosphatase 88 (38-126) U/L Total Protein 8.9 H (6.3-8.2) g/dL Albumin 5.1 H (3.5-5.0) g/dL Calcium panel 06/16/24 Range/Units 07:49 Calcium 10.2 (8.4-10.2) mg/dL Albumin 5.1 H (3.5-5.0) g/dL Pituitary panel 06/16/24 Range/Units 07:49 Sodium 142 (137-145) mmol/L Potassium 4.0 (3.5-5.1) mmol/L Chloride 108 H (98-107) mmol/L Carbon Dioxide 21 L (22-30) mmol/L BUN 8 (7-17) mg/dL Creatinine 0.96 (0.52-1.04) mg/dL Glucose 89 (74-99) mg/dL Calcium 10.2 (8.4-10.2) mg/dL Adrenal panel 06/16/24 Range/Units 07:49 Sodium 142 (137-145) mmol/L Potassium 4.0 (3.5-5.1) mmol/L Chloride 108 H (98-107) mmol/L Carbon Dioxide 21 L (22-30) mmol/L BUN 8 (7-17) mg/dL Creatinine 0.96 (0.52-1.04) mg/dL Glucose 89 (74-99) mg/dL Calcium 10.2 (8.4-10.2) mg/dL Total Bilirubin 1.8 H (0.2-1.3) mg/dL AST 166 H (14-36) U/L ALT 144 H (4-34) U/L Alkaline Phosphatase 88 (38-126) U/L Total Protein 8.9 H (6.3-8.2) g/dL Albumin 5.1 H (3.5-5.0) g/dL Assessment and Plan Assessment: Patient is a 29-year-old female with alcohol abuse who presents with acute onset of epigastric pain and cross-sectional imaging findings consistent with acute alcoholic pancreatitis Plan: -Right upper quadrant ultrasound reviewed: No evidence of cholelithiasis -N.p.o. -IV fluid hydration -Trend LFTs and lipase -As needed pain and nausea control -No acute surgical intervention we will plan for conservative management of pancreatitis. Patient counseled on alcohol cessation Vj Kapadia M.D. General Surgery
--- NOTE | 2024-06-16 16:55 | P.HPIM ---
History of Present Illness This is a pleasant 29 years old female who presents because of abdominal pain and nausea vomiting. Patient is new to the system. [place] was [place] the city. Currently she does not have PCP, plan to follow-up with a new PCP on July 02 Dr. Yahaira Welch on her first appointment. She did not have also PCP and on higher. Patient states that she has this abdominal pain for about 2 months and a low grade but it got really severe over the last 2 days. Abdominal pain rated as 10/10 on admission, currently 7/10. Radiating around to the back with no specific relieving or precipitating factors. Patient reports diarrhea. With little blood. Also patient complains from chronic vomiting, she states she is vomiting about 4 times per week She denies chest pain or dyspnea. No specific complaint of her urinary tract. No headache dizziness weakness or numbness Patient smokes half pack per day and she was counseled to quit and she agrees to the nicotine patch Patient states she still drinks alcohol about 2-3 times per week. She has medical marijuana use and she does not use any other recreational drugs Patient states that sometimes she feels depression but currently denies any suicidal or homicidal ideation and no hallucinations On admission blood pressure on the high side, she is afebrile. She has mild leukocytosis of 12.3, hemoglobin 18.8. BMP is unremarkable. Liver enzymes slightly elevated with AST 166 and 1 ALT 144. Bilirubin slightly high at 1.8. Lipase is elevated 3881 and amylase elevated 340. hCG is negative in the plasma. Gallbladder ultrasound is negative for acute gallbladder abnormality although it was limited exam CT of the abdominal pelvis showing acute pancreatitis with fluid around the head and proximal pancreas Review of Systems Review of systems CONSTITUTIONAL: No fever, no malaise, no fatigue. HEENT: No recent visual problems or hearing problems. Denied any sore throat. CARDIOVASCULAR: No orthopnea, PND, no palpitations, no syncope. PULMONARY: No shortness of breath, no cough, no hemoptysis. GASTROINTESTINAL: As above NEUROLOGICAL: No headaches, no weakness, no numbness. HEMATOLOGICAL: Denies any bleeding or petechiae. GENITOURINARY: Denies any burning micturition, frequency, or urgency. MUSCULOSKELETAL/RHEUMATOLOGICAL: Denies any joint pain, swelling, or any muscle pain. ENDOCRINE: Denies any polyuria or polydipsia. Past Medical History Past Medical History: Hypertension, Thyroid Disorder Additional Past Medical History / Comment(s): Hydradenitis suppertiva; Kidney stones History of Any Multi-Drug Resistant Organisms: None Reported Past Surgical History: No Surgical Hx Reported Additional Past Surgical History / Comment(s): cyst removed from buttocks two years ago, cystoscopy with right ureteroscopy and holmium laser lithotripsy on 09/19/2020 Past Anesthesia/Blood Transfusion Reactions: No Reported Reaction Past Psychological History: Anxiety, Depression Smoking Status: Current every day smoker, Heavy tobacco smoker Past Alcohol Use History: None Reported Past Drug Use History: Marijuana - Past Family History Mother Family Medical History: No Reported History Medications and Allergies Home Medications Medication Instructions Recorded Confirmed Type No Known Home Medications 06/16/24 06/16/24 History Allergies Allergy/AdvReac Type Severity Reaction Status Date / Time No Known Allergies Allergy Verified 06/16/24 10:37 Physical Exam Vitals: Vital Signs Temp Pulse Pulse Resp BP BP Pulse Ox 06/16/24 13:59 72 14 177/109 96 06/16/24 13:33 98.9 F 70 16 168/99 95 06/16/24 11:35 69 18 111/96 99 06/16/24 10:49 47 L 18 160/99 97 06/16/24 10:21 43 L 18 166/102 98 06/16/24 09:44 55 L 18 169/113 98 06/16/24 08:30 18 171/84 06/16/24 07:51 16 159/109 06/16/24 07:26 97.6 F 95 18 161/108 95 Intake and Output 06/16/24 06/16/24 06/16/24 06:59 14:59 22:59 Other: Weight 102.058 kg -GENERAL: The patient is alert and oriented x3, not in any acute distress. Well developed, well nourished. Obese HEENT: Pupils are round and equally reacting to light. EOMI. No scleral icterus. No conjunctival pallor. Normocephalic, atraumatic. No pharyngeal erythema. No thyromegaly. CARDIOVASCULAR: S1 and S2 present. No murmurs, rubs, or gallops. PULMONARY: Chest is clear to auscultation, no wheezing , no crackles. -ABDOMEN: Soft, n epigastric tenderness, nondistended, normoactive bowel sounds. No palpable organomegaly. MUSCULOSKELETAL: No joint swelling or deformity. EXTREMITIES: No cyanosis, clubbing, or pedal edema. NEUROLOGICAL: Gross neurological examination did not reveal any focal deficits. SKIN: No rashes. no petechiae. Results CBC & Chem 7: 06/16/24 07:49 06/16/24 07:49 Labs: Abnormal Lab Results - Last 24 Hours (Table) 06/16/24 06/16/24 06/16/24 Range/Units 07:49 07:49 12:16 WBC 12.3 H (3.8-10.6) k/uL Hgb 18.8 H (11.4-16.0) gm/dL Hct 54.6 H (34.0-46.0) % MCV 110.4 H (80.0-100.0) fL MCH 38.1 H (25.0-35.0) pg Neutrophils # 10.0 H (1.3-7.7) k/uL Macrocytosis Marked A Chloride 108 H (98-107) mmol/L Carbon Dioxide 21 L (22-30) mmol/L Total Bilirubin 1.8 H (0.2-1.3) mg/dL AST 166 H (14-36) U/L ALT 144 H (4-34) U/L Total Protein 8.9 H (6.3-8.2) g/dL Albumin 5.1 H (3.5-5.0) g/dL Amylase 340 H* (30-110) U/L Lipase 3881 H (23-300) U/L Ur Specific [place] >1.050 H (1.001-1.035) Urine Protein Trace H (Negative) Urine Ketones 3+ H (Negative) Thrombosis Risk Factor Assmnt - Choose All That Apply Any of the Below Risk Factors Present?: No Other Risk Factors: No Other congenital or acquired thrombophilia - If yes, enter type in comment: No Thrombosis Risk Factor Assessment Level: Very Low Risk Assessment and Plan Assessment: Alcoholic pancreatitis Alcoholic transaminitis Alcoholic use disorder, at risk of alcohol withdrawal Dehydration Hypertension Obesity with BMI of 36.6. Nicotine dependence Plan: Continue with aggressive IV hydration Bowel rest Pain medication Surgical team consult Hydralazine for high blood pressure I discussed with the patient there is no GI service in this facility and she does not want to be transferred and continue to receive care at this hospital Labs and medication were reviewed.. Continue same treatment. Continue with symptomatic treatment. Resume home medication. Monitor labs and vitals. DVT and GI prophylaxis. Further recommendations as per clinical course of the patient DVT prophylaxis: Subcutaneous Lovenox GI Prophylaxis: Protonix Prognosis is guarded
[2024-06-16] MEDS: NICOTINE 21MG/24HR PATCH TRANSDERM SCH (17:02)
[2024-06-16] MEDS: hydrALAZINE HCL 20 MG/ML 1 ML VIAL IVP SCH (17:02)
[2024-06-16] MEDS: PANTOPRAZOLE 40 MG/10 ML VIAL IVP SCH (20:10)
[2024-06-16] MEDS: ONDANSETRON 4 MG/2 ML VIAL IVP PRN (20:21)
[2024-06-17] MEDS: hydrALAZINE HCL 20 MG/ML 1 ML VIAL IVP PRN (02:36)
--- NOTE | 2024-06-17 08:21 | P.PN ---
Progress Note - Text Progress Note Date: 06/17/24 No acute events overnight. VSS General-NAD CVS-RRR Lungs-NLB Abdomen-soft, TTP epigastric region, ND, no guarding, no rigidity 29-year-old female with alcohol abuse who presents with acute onset of epigastric pain and imaging findings consistent with acute alcoholic pancreatitis -Right upper quadrant ultrasound reviewed: No evidence of cholelithiasis -Clear Liquid Diet Started -IV fluids -Trend LFTs and lipase -PRN pain and nausea control -No acute surgical intervention Bharath Mason DO [facility] [phone]
[2024-06-17] MEDS: ENOXAPARIN 40 MG/0.4 ML SYRINGE SQ SCH (08:32)
[2024-06-17] MEDS ORDERED: PANTOPRAZOLE 40 MG/10 ML VIAL IV SCH (09:00)
[2024-06-17 09:48] LABS: ALT 84 U/L (8-44); AST 62 U/L (13-35); Albumin/Globulin Ratio 1.48 Ratio (1.60-3.17); Alkaline Phosphatase 65 U/L (41-126); BUN/Creat Ratio 8.57 Ratio (12.00-20.00); Bilirubin, Conjugated 0.41 mg/dL (0.20-0.40); Bilirubin,Unconjugated 0.69 mg/dL (0.20-1.00); Calcium 8.9 mg/dL (8.7-10.3); Carbon Dioxide 18.5 mmol/L (21.6-31.8); Chloride 108 mmol/L (96-109); Chol/HDL Ratio 6.67 Ratio; Globulin 2.7 g/dL (1.6-3.3); Glucose 93 mg/dL (70-110); LDL Cholesterol,Calculated 164.5 mg/dL (0.0-131.0); Potassium 3.6 mmol/L (3.5-5.5); Sodium 141 mmol/L (135-145); Total Bilirubin 1.1 mg/dL (0.3-1.2); Total Protein 6.7 g/dL (6.2-8.2)
[2024-06-17 09:50] LABS: HGB 16.9 g/dL (12.0-15.0); MCH 39.5 pg (27.0-32.0); MCV 109.8 FL (80.0-97.0); Mean Platelet Volume 10.7 FL (9.5-12.2); NRBC Per 100 WBC 0 X 10*3/uL (0.00-0.01); Platelet Count 179 X 10*3/uL (140-440); RBC 4.28 X 10*6/uL (4.10-5.20); RDW 14.1 % (11.5-14.5); WBC 10.58 X 10*3/uL (4.50-10.00)
[2024-06-17 10:51] LABS: Basophils # (A) 0.03 X 10*3/uL (0.00-0.10); Basophils % (A) 0.3 %; Eosinophils # (A) 0.03 X 10*3/uL (0.04-0.35); Eosinophils % (A) 0.3 %; Lymphocytes # (A) 0.77 X 10*3/uL (0.90-5.00); Lymphocytes % (A) 7.3 %; Monocytes # (A) 0.68 X 10*3/uL (0.20-1.00); Monocytes % (A) 6.4 %; Neutrophils # (A) 9.01 X 10*3/uL (1.80-7.70); Neutrophils % (A) 85.1 %
--- NOTE | 2024-06-17 21:25 | P.PN ---
Subjective This is a pleasant 29 years old female who presents because of abdominal pain and nausea vomiting. Patient is new to the system. She was recently moved into the city. Currently she does not have PCP, plan to follow-up with a new PCP on July 02 Dr. Yahaira Welch on her first appointment. She did not have also PCP and on higher. Patient states that she has this abdominal pain for about 2 months and a low grade but it got really severe over the last 2 days. Abdominal pain rated as 10/10 on admission, currently 7/10. Radiating around to the back with no specific relieving or precipitating factors. Patient reports diarrhea. With little blood. Also patient complains from chronic vomiting, she states she is vomiting about 4 times per week She denies chest pain or dyspnea. No specific complaint of her urinary tract. No headache dizziness weakness or numbness Patient smokes half pack per day and she was counseled to quit and she agrees to the nicotine patch Patient states she still drinks alcohol about 2-3 times per week. She has me dical marijuana use and she does not use any other recreational drugs Patient states that sometimes she feels depression but currently denies any suicidal or homicidal ideation and no hallucinations On admission blood pressure on the high side, she is afebrile. She has mild leukocytosis of 12.3, hemoglobin 18.8. BMP is unremarkable. Liver enzymes slightly elevated with AST 166 and 1 ALT 144. Bilirubin slightly high at 1.8. Lipase is elevated 3881 and amylase elevated 340. hCG is negative in the plasma. Gallbladder ultrasound is negative for acute gallbladder abnormality although it was limited exam CT of the abdominal pelvis showing acute pancreatitis with fluid around the head and proximal pancreas 06/17 Abdominal pain improved Patient wanted liquid diet which was started and tolerated well so far Hide blood pressure is better controlled Patient can switch to oral medication once tolerates diet Continue close monitoring Objective - Vital Signs Vital signs: Vital Signs Temp 97.5 F L 06/17/24 18:52 Pulse 66 06/17/24 18:52 Resp 18 06/17/24 18:52 BP 168/100 06/17/24 18:52 Pulse Ox 99 06/17/24 18:52 FiO2 Intake & Output 06/17/24 06/17/24 06/18/24 06:59 18:59 06:59 Intake Total 480 Output Total 100 Balance -100 480 Intake: Oral 480 Output: Emesis 100 Other: # Voids 2 2 - Exam GENERAL: The patient is alert and oriented x3, not in any acute distress. Well developed, well nourished. Obese HEENT: Pupils are round and equally reacting to light. EOMI. No scleral icterus. No conjunctival pallor. Normocephalic, atraumatic. No pharyngeal erythema. No thyromegaly. CARDIOVASCULAR: S1 and S2 present. No murmurs, rubs, or gallops. PULMONARY: Chest is clear to auscultation, no wheezing , no crackles. -ABDOMEN: Soft, epigastric tenderness, mild r, nondistended, normoactive bowel sounds. No palpable organomegaly. MUSCULOSKELETAL: No joint swelling or deformity. EXTREMITIES: No cyanosis, clubbing, or pedal edema. NEUROLOGICAL: Gross neurological examination did not reveal any focal deficits. SKIN: No rashes. no petechiae. - Labs CBC & Chem 7: 06/17/24 05:30 06/17/24 05:30 Labs: Abnormal Lab Results - Last 24 Hours (Table) 06/17/24 06/17/24 Range/Units 05:30 05:30 WBC 10.58 H (4.50-10.00) X 10*3/uL Hgb 16.9 H (12.0-15.0) g/dL Hct 47.0 H (37.2-46.3) % MCV 109.8 H (80.0-97.0) FL MCH 39.5 H (27.0-32.0) pg Immature Gran # 0.06 H (0.00-0.04) X 10*3/uL Neutrophils # 9.01 H (1.80-7.70) X 10*3/uL Lymphocytes # 0.77 L (0.90-5.00) X 10*3/uL Eosinophils # 0.03 L (0.04-0.35) X 10*3/uL Carbon Dioxide 18.5 L (21.6-31.8) mmol/L Anion Gap 14.50 H (4.00-12.00) mmol/L BUN 6.0 L (9.0-27.0) mg/dL BUN/Creatinine Ratio 8.57 L (12.00-20.00) Ratio Conjugated Bilirubin 0.41 H (0.20-0.40) mg/dL AST 62 H (13-35) U/L ALT 84 H (8-44) U/L Albumin/Globulin Ratio 1.48 L (1.60-3.17) Ratio Cholesterol 226.00 H (0.00-200.00) mg/dL LDL Cholesterol, Calc 164.5 H (0.0-131.0) mg/dL HDL Cholesterol 33.90 L (40.00-60.00) mg/dL Assessment and Plan Assessment: Alcoholic pancreatitis Alcoholic transaminitis Alcoholic use disorder, at risk of alcohol withdrawal Dehydration Hypertension Obesity with BMI of 36.6. Nicotine dependence Plan: Continue with aggressive IV hydration Bowel rest, then advance to liquid diet Pain medication Surgical team consult Hydralazine for high blood pressure Labs and medication were reviewed.. Continue same treatment. Continue with symptomatic treatment. Resume home medication. Monitor labs and vitals. DVT and GI prophylaxis. Further recommendations as per clinical course of the patient DVT prophylaxis: Subcutaneous Lovenox GI Prophylaxis: Protonix Prognosis is guarded
[2024-06-18 09:58] LABS: ALT 57 U/L (4-34); AST 43 U/L (14-36); African American GFR (CKD) >90 (>60 ml/min/1.73 sqM); Albumin 4.1 g/dL (3.5-5.0); Albumin/Globulin Ratio 1.5; Alkaline Phosphatase 70 U/L (38-126); Anion Gap 10 mmol/L; Blood Urea Nitrogen 4 mg/dL (7-17); Carbon Dioxide 19 mmol/L (22-30); Chloride 110 mmol/L (98-107); Globulin 2.8 g/dL; Glucose 75 mg/dL (74-99); Non-African American GFR(CKD) >90 (>60 ml/min/1.73 sqM); Potassium 3.4 mmol/L (3.5-5.1); Sodium 139 mmol/L (137-145); Total Bilirubin 1.3 mg/dL (0.2-1.3); Total Protein 6.9 g/dL (6.3-8.2)
[2024-06-18 10:59] LABS: Lipase 4221 U/L (23-300)
--- NOTE | 2024-06-18 13:44 | P.PN ---
Subjective Progress Note Date: 06/18/24 SURGICAL PROGRESS NOTE CHIEF COMPLAINT: Pancreatitis HISTORY OF PRESENT ILLNESS: Patient continues to have epigastric abdominal pain. This is her first episode of pancreatitis. Ultrasound had reported no gallstones. She denies any nausea or vomiting. She is going slow with liquids. Afebrile. Mildly tachycardic. Elevated BP. WBC 10.58 potassium 3.4 lipase has increased from [id number] PHYSICAL EXAM: VITAL SIGNS: Reviewed. GENERAL: Well-developed in no acute distress. ABDOMEN: Soft. Epigastric tenderness NEUROLOGIC: Alert and oriented. Cranial nerves II through XII grossly intact. ASSESSMENT: 1. Acute alcoholic pancreatitis PLAN: -Continue clear liquid diet -Consult GI service -No surgical intervention planned -Educated patient to refrain from alcohol use -Repeat lipase in a.m. Physician Ware Carrier note has been reviewed by physician. Signing provider agrees with the documented findings, assessment, and plan of care. Attestation Patient seen and examined at bedside. Continues to complain of abdominal pain. She does have acute alcoholic pancreatitis. GI service on consult. Continue clear liquid diet at this time. No plan for surgical intervention. Ama De Oliveira DO Objective - Vital Signs Vital signs: Vital Signs Temp 98.4 F 06/18/24 12:44 Pulse 107 H 06/18/24 12:44 Resp 18 06/18/24 12:44 BP 181/107 06/18/24 12:44 Pulse Ox 98 06/18/24 12:44 FiO2 Intake & Output 06/17/24 06/18/24 06/18/24 18:59 06:59 18:59 Intake Total 480 3240 Balance 480 3240 Intake: Intake, IV Titration 2400 Amount Sodium Chloride 0.9% 1, 2400 000 ml @ 200 mls/hr IV . Q5H DARYN Rx#:[id number] Oral 480 840 Other: # Voids 2 3 - Labs CBC & Chem 7: 06/17/24 05:30 06/18/24 09:22 Labs: Abnormal Lab Results - Last 24 Hours (Table) 06/18/24 Range/Units 09:22 Potassium 3.4 L (3.5-5.1) mmol/L Chloride 110 H (98-107) mmol/L Carbon Dioxide 19 L (22-30) mmol/L BUN 4 L (7-17) mg/dL AST 43 H (14-36) U/L ALT 57 H (4-34) U/L Lipase 4221 H (23-300) U/L
[2024-06-18] MEDS ORDERED: Potassium Replacement Protocol 1 EACH MISC MISCELLANE PRN (14:08)
[2024-06-18] MEDS ORDERED: Magnesium Replacement Protocol 1 EACH MISC MISCELLANE PRN (14:08)
--- NOTE | 2024-06-18 14:15 | XR ---
EXAMINATION TYPE: XR chest 1V portable DATE OF EXAM: 06/18/2024 CLINICAL HISTORY: chf TECHNIQUE: Single frontal view of the chest is obtained. COMPARISON: 04/08/2021 FINDINGS: There is no focal air space opacity, pleural effusion, or pneumothorax seen. The cardiac silhouette size is within normal limits. The osseous structures are intact. IMPRESSION: No acute process. [facility], , 06/18/2024 2:12 PM
[2024-06-18] MEDS: POTASSIUM CHLORIDE ER 20 MEQ TAB.ER PO STA (14:34)
[2024-06-18] MEDS: cloNIDine HCL 0.1 MG TAB PO SCH (14:34)
[2024-06-18] MEDS: MEROPENEM 2 GM in SODIUM CHLORIDE 0.9% 100 ML IVPB SCH (15:07)
[2024-06-18] MEDS: 0.9% NACL WITH KCL 20 MEQ/L 1,000 ML IV SCH (15:07)
--- NOTE | 2024-06-18 22:15 | P.CONS ---
History of Present Illness - Reason for Consult Consult date: 06/18/24 Sepsis, pancreatitis Requesting physician: Felice Albert - Chief Complaint Abdominal pain x few days - History of Present Illness Patient is a 29-year-old female with a past medical history significant for hypertension hypothyroidism kidney stone presenting to the hospital 2 days ago for evaluation of abdominal pain patient pain has been mostly in the epigastric area describing it to be sharp moderate to severe intensity did have nausea and vomiting no diarrhea patient denies having any fever or any chills patient on presentation to the hospital was afebrile and no fever have been recorded during this hospital stay patient was not significantly tachycardic hypotensive or hypoxic patient did have a white count of 12.3 repeat is 10.58, creatinine is normal liver enzymes are mildly elevated did have elevated amylase and lipase urine hCG was negative UA has been negative patient did have abdominal pelvis CT pancreas that is slightly hypertensive with christian rounding fluid findings can be compatible with acute pancreatitis with no pseudocyst or abscess formation patient did have a gallbladder ultrasound moderate fatty infiltration of the liver and hepatomegaly patient has been treated with meropenem infectious disease was consulted today for sepsis and pancreatitis Review of Systems Positive point and negatives has been mentioned in the HPI, complete review of systems was performed and all other systems are negative Past Medical History Past Medical History: Hypertension, Thyroid Disorder Additional Past Medical History / Comment(s): Hydradenitis suppertiva; Kidney stones History of Any Multi-Drug Resistant Organisms: None Reported Past Surgical History: No Surgical Hx Reported Additional Past Surgical History / Comment(s): cyst removed from buttocks two years ago, cystoscopy with right ureteroscopy and holmium laser lithotripsy on 09/19/2020 Past Anesthesia/Blood Transfusion Reactions: No Reported Reaction Past Psychological History: Anxiety, Depression Smoking Status: Current every day smoker, Heavy tobacco smoker Past Alcohol Use History: None Reported Past Drug Use History: Marijuana - Past Family History Mother Family Medical History: No Reported History Medications and Allergies Home Medications Medication Instructions Recorded Confirmed Type No Known Home Medications 06/16/24 06/16/24 History Allergies Allergy/AdvReac Type Severity Reaction Status Date / Time No Known Allergies Allergy Verified 06/16/24 10:37 Physical Exam Vitals: Vital Signs Temp Pulse Resp BP Pulse Ox 06/18/24 12:44 98.4 F 107 H 18 181/107 98 06/18/24 07:34 98.9 F 81 16 163/95 98 06/18/24 01:14 98.0 F 86 18 165/93 100 06/17/24 18:52 97.5 F L 66 18 168/100 99 Intake and Output 06/17/24 06/18/24 06/18/24 22:59 06:59 14:59 Intake Total 960 2760 Balance 960 2760 Intake: Intake, IV Titration 2400 Amount Sodium Chloride 0.9% 1, 2400 000 ml @ 200 mls/hr IV . [facility] Rx#:[id number] Oral 960 360 Other: # Voids 2 3 GENERAL DESCRIPTION: Middle-aged female lying in bed, no distress. No tachypnea or accessory muscle of respiration use. HEENT: Shows Pallor , no scleral icterus. Oral mucous membrane is dry. NECK: Trachea central, no thyromegaly. LUNGS: Unlabored breathing. Clear to auscultation anteriorly. No wheeze or crackle. HEART: S1, S2, regular rate and rhythm. No loud murmur ABDOMEN: Soft, mild tenderness EXTREMITIES: No edema of feet. SKIN: No rash, no masses palpable. NEUROLOGICAL: The patient is awake, alert, oriented x3, mood and affect normal. Results CBC & Chem 7: 06/17/24 05:30 06/18/24 09:22 Labs: Abnormal Lab Results - Last 24 Hours (Table) 06/18/24 Range/Units 09:22 Potassium 3.4 L (3.5-5.1) mmol/L Chloride 110 H (98-107) mmol/L Carbon Dioxide 19 L (22-30) mmol/L BUN 4 L (7-17) mg/dL AST 43 H (14-36) U/L ALT 57 H (4-34) U/L Lipase 4221 H (23-300) U/L Assessment and Plan (1) Leukocytosis Current Visit: Yes Status: Acute Code(s): D72.829 - ELEVATED WHITE BLOOD CELL COUNT, UNSPECIFIED SNOMED Code(s): 692753323 (2) Acute alcoholic pancreatitis Current Visit: Yes Status: Acute Code(s): K85.20 - ALCOHOL INDUCED ACUTE PANCREATITIS WITHOUT NECROSIS OR INFCT SNOMED Code(s): 731617375 Plan: 1patient presented to hospital abdominal pain and this patient has been diagnosed with acute on chronic pancreatitis ultrasound did not show any evidence of gallstones CT did not show any evidence of necrotizing pancreatitis or any evidence of abscess or pseudocyst formation patient is not running any fever and no significant tachycardia or elevated white count not meeting criteria for SIRS/sepsis or infected necrosis clinically and the patient white count is only trending down as of yesterday without antibiotic and no CBC was done today 2-we will de-escalate antibiotic at this point to Zosyn We will follow on clinical condition and cultures to further adjust medication if needed Thank you for this consultation we will follow the patient along with you Dictation was produced using [employer] dictation software. please excuse any grammatical, word or spelling errors. Time with Patient: Greater than 30
[2024-06-18] MEDS: HEPARIN SODIUM,PORCINE 5,000 UNIT/ML 1 ML VIAL SQ SCH (22:20)
[2024-06-18] MEDS: HYDROmorphone 0.5 MG/0.5 ML SYRINGE IVP PRN (22:21)
[2024-06-18] MEDS: PIPERACILLIN-TAZOBACTAM 3.375 GM in SODIUM CHLORIDE 0.9% 100 ML IVPB SCH (23:34)
[2024-06-19] MEDS: cloNIDine HCL 0.1 MG TAB PO PRN (01:50)
--- NOTE | 2024-06-19 06:18 | PN ---
PROGRESS NOTE DATE OF SERVICE: 06/18/2024 SUBJECTIVE: This is a 29-year-old woman, who was admitted with alcohol withdrawal and severe alcoholic pancreatitis, being closely monitored. The patient is complaining of abdominal pain, amylase and lipase today, lipase showing 4221, which is increased. White count is elevated. PAST MEDICAL HISTORY: Reviewed. REVIEW OF SYSTEMS: A 14-point review is negative except as mentioned earlier. CURRENT MEDICATIONS: Reviewed. Lovenox. PHYSICAL EXAMINATION: VITAL SIGNS: Pulse 107, blood pressure 180/107, respirations 18. HEENT: Conjunctivae normal. NECK: No JVD. CARDIOVASCULAR: S1, S2. RESPIRATIONS: Breath sounds diminished at the bases. A few scattered rhonchi. ABDOMEN: Soft. Mild diffuse tenderness. No guarding. No rigidity. No mass. LEGS: No edema. NERVOUS SYSTEM: Nonfocal. LABORATORY DATA: Reviewed. ASSESSMENT: 1. Acute severe pancreatitis, possibly secondary to EtOH. 2. Alcoholic transaminitis. 3. Hypertension. 4. Acute alcohol withdrawal. 5. Dehydration. 6. Obesity. 7. Multiple complex medical issues. RECOMMENDATIONS AND DISCUSSION: Recommend to continue current management and continue symptomatic treatment. The patient had possibly necrotizing pancreatitis. I would recommend empiric antibiotics. Repeat labs. I would also recommend a portable chest x-ray. Infectious disease evaluation, cultures. Guarded prognosis because of multiple complex medical issues. Further recommendations to follow. See orders for further details. We will add clonidine also to the current regimen. MMODL / IJN: [id number] /
[2024-06-19 09:31] LABS: Amylase 259 U/L (23-121); BUN/Creat Ratio 7.67 Ratio (12.00-20.00); Blood Urea Nitrogen 4.6 mg/dL (9.0-27.0); Carbon Dioxide 18.5 mmol/L (21.6-31.8); Chloride 107 mmol/L (96-109); Chol/HDL Ratio 6.98 Ratio; Glucose 77 mg/dL (70-110); Magnesium 1.9 mg/dL (1.5-2.4); Potassium 3.6 mmol/L (3.5-5.5); Sodium 137 mmol/L (135-145)
[2024-06-19 09:32] LABS: ALT 48 U/L (8-44); AST 42 U/L (13-35); Albumin 3.6 g/dL (3.8-4.9); Albumin/Globulin Ratio 1.57 Ratio (1.60-3.17); Alkaline Phosphatase 58 U/L (41-126); Calcium 8.8 mg/dL (8.7-10.3); Globulin 2.3 g/dL (1.6-3.3); Total Bilirubin 0.9 mg/dL (0.3-1.2); Total Protein 5.9 g/dL (6.2-8.2)
[2024-06-19 09:53] LABS: Lipase 405 U/L (14-63)
[2024-06-19 12:01] LABS: Basophils # (A) 0.03 X 10*3/uL (0.00-0.10); Basophils % (A) 0.3 %; Eosinophils # (A) 0.09 X 10*3/uL (0.04-0.35); Eosinophils % (A) 0.8 %; HCT 39.7 % (37.2-46.3); HGB 13.5 g/dL (12.0-15.0); Lymphocytes # (A) 0.79 X 10*3/uL (0.90-5.00); MCH 38.8 pg (27.0-32.0); MCV 114.1 FL (80.0-97.0); Mean Platelet Volume 10.8 FL (9.5-12.2); Monocytes # (A) 0.87 X 10*3/uL (0.20-1.00); Monocytes % (A) 7.7 %; NRBC Per 100 WBC 0 X 10*3/uL (0.00-0.01); Neutrophils # (A) 9.38 X 10*3/uL (1.80-7.70); Neutrophils % (A) 83.4 %; Platelet Count 155 X 10*3/uL (140-440); RBC 3.48 X 10*6/uL (4.10-5.20); RDW 14.3 % (11.5-14.5); WBC 11.25 X 10*3/uL (4.50-10.00)
[2024-06-19] MEDS: DOCUSATE 100 MG CAP PO SCH (12:47)
--- NOTE | 2024-06-19 14:40 | P.PN ---
Subjective Progress Note Date: 06/19/24 Principal diagnosis: Reason for follow-up is pancreatitis/leukocytosis question of sepsis Patient is a 29-year-old female with a past medical history significant for hypertension hypothyroidism kidney stone presenting to the hospital for evaluation of abdominal pain patient be diagnosed with alcoholic pancreatitis ultrasound of the gallbladder did not show any evidence of gallstone patient did have mild elevated white count with admitting concerning for possible sepsis related to the pancreatitis prompting this consultation. On today's evaluation that is 06/19/2024, the patient continues to be afebrile, the patient is on room air and breathing comfortably, the Pt denies having any chest pain or cough, the patient mention abdominal pain has slightly decreased in intensity she did have an episode of vomiting last night but none today is passing gas did not have any bowel movement. Patient white count is 11.25 creatinine 0.6 procalcitonin 0.03 amylase lipase are improving Objective - Vital Signs Vital signs: Vital Signs Temp 98.3 F 06/19/24 12:07 Pulse 80 06/19/24 12:07 Resp 18 06/19/24 12:07 BP 153/97 06/19/24 12:07 Pulse Ox 98 06/19/24 12:07 FiO2 Intake & Output 06/18/24 06/19/24 06/19/24 18:59 06:59 18:59 Intake Total 1260 339 Balance 1260 339 Intake: Oral 1260 339 Other: # Voids 2 1 - Exam GENERAL DESCRIPTION: Middle-age female lying in bed in no distress RESPIRATORY SYSTEM: Unlabored breathing , decreased breath sounds at bases HEART: S1 S2 regular rate and rhythm , ABDOMEN: Soft , mild tenderness EXTREMITIES: No edema feet - Labs CBC & Chem 7: 06/19/24 04:06 06/19/24 04:06 Labs: Abnormal Lab Results - Last 24 Hours (Table) 06/19/24 06/19/24 Range/Units 04:06 04:06 WBC 11.25 H (4.50-10.00) X 10*3/uL RBC 3.48 L (4.10-5.20) X 10*6/uL MCV 114.1 H (80.0-97.0) FL MCH 38.8 H (27.0-32.0) pg Immature Gran # 0.09 H (0.00-0.04) X 10*3/uL Neutrophils # 9.38 H (1.80-7.70) X 10*3/uL Lymphocytes # 0.79 L (0.90-5.00) X 10*3/uL Carbon Dioxide 18.5 L (21.6-31.8) mmol/L BUN 4.6 L (9.0-27.0) mg/dL BUN/Creatinine Ratio 7.67 L (12.00-20.00) Ratio AST 42 H (13-35) U/L ALT 48 H (8-44) U/L C-Reactive Protein 8.60 H (0.00-0.80) mg/dL Total Protein 5.9 L (6.2-8.2) g/dL Albumin 3.6 L (3.8-4.9) g/dL Albumin/Globulin Ratio 1.57 L (1.60-3.17) Ratio LDL Cholesterol, Calc 132.0 H (0.0-131.0) mg/dL HDL Cholesterol 25.80 L (40.00-60.00) mg/dL Amylase 259 H (23-121) U/L Lipase 405 H (14-63) U/L Assessment and Plan (1) Leukocytosis Current Visit: Yes Status: Acute Code(s): D72.829 - ELEVATED WHITE BLOOD CELL COUNT, UNSPECIFIED SNOMED Code(s): 853566070 (2) Acute alcoholic pancreatitis Current Visit: Yes Status: Acute Code(s): K85.20 - ALCOHOL INDUCED ACUTE PANCREATITIS WITHOUT NECROSIS OR INFCT SNOMED Code(s): 409492100 Plan: 1patient presented to hospital abdominal pain and this patient has been diagnosed with acute on chronic pancreatitis ultrasound did not show any evidence of gallstones CT did not show any evidence of necrotizing pancreatitis or any evidence of abscess or pseudocyst formation patient is not running any fever and no significant tachycardia or elevated white count not meeting criteria for SIRS/sepsis or infected necrosis clinically 2-patient mention improvement in her pain white count is slightly up will be monitored closely continue with Zosyn Dictation was produced using [employer] software. please excuse any grammatical, word or spelling errors. Time with Patient: Less than 30
--- NOTE | 2024-06-19 15:06 | P.CONS ---
History of Present Illness - Reason for Consult Consult date: 06/19/24 Pancreatitis Requesting physician: Marifer Tobais - Chief Complaint Abdominal pain - History of Present Illness This is a pleasant 29-year-old female who presented to the hospital 3 days ago with complaints of epigastric abdominal pain associated with nausea and vomiting. States that pain started last or Tuesday which got progressively worse so she came in for further evaluation. She was noted to have elevated amylase and lipase. She had a CAT scan of the abdomen and pelvis that showed acute pancreatitis. General surgery was initially consulted as there was no GI present in the hospital. Patient admits to heavy binge drinking the weekend prior for 3 days straight with vodka. She states that she has been drinking over the last 1 year duration heavy at times. She has had no prior history of pancreatitis. States abdominal pain is improving. No nausea or vomiting at this time. Just very tired. Admitting labs WBC 12.3 hemoglobin 18 platelet count 230,000 total bilirubin 1.8 AST 166 ALT 144 alkaline phosphatase 88 amylase 340 and lipase 3881. Amylase and lipase as well as LFTs trending down. Today total bilirubin 0.9 AST 42 ALT 48 alkaline phosphatase 58 amylase 259 lipase 405 Review of Systems REVIEW OF SYSTEMS: CARDIOPULMONARY: No chest pain or shortness of breath. Gastrointestinal: Abdominal pain. No nausea or vomiting. No hematemesis, coffee-ground emesis. No rectal bleeding, or melena. GENITOURINARY: No dysuria or hematuria. MUSCULOSKELETAL: Reports normal range of motion., Joint pain. SKIN: No rashes. No jaundice. ENDOCRINE: No chills, fevers. No excessive weight gain or loss. No polydipsia or polyuria. PSYCHIATRIC: Unremarkable. NEUROLOGY: No change in mental status. Denies dizziness, headache. ENT: Vision unremarkable. CONSTITUTIONAL: No recent weight loss. No fever, chills, night sweats. Past Medical History Past Medical History: Hypertension, Thyroid Disorder Additional Past Medical History / Comment(s): Hydradenitis suppertiva; Kidney stones History of Any Multi-Drug Resistant Organisms: None Reported Past Surgical History: No Surgical Hx Reported Additional Past Surgical History / Comment(s): cyst removed from buttocks two ye ars ago, cystoscopy with right ureteroscopy and holmium laser lithotripsy on 09/19/2020 Past Anesthesia/Blood Transfusion Reactions: No Reported Reaction Past Psychological History: Anxiety, Depression Smoking Status: Current every day smoker, Heavy tobacco smoker Past Alcohol Use History: None Reported Past Drug Use History: Marijuana - Past Family History Mother Family Medical History: No Reported History Medications and Allergies Home Medications Medication Instructions Recorded Confirmed Type No Known Home Medications 06/16/24 06/16/24 History Allergies Allergy/AdvReac Type Severity Reaction Status Date / Time No Known Allergies Allergy Verified 06/16/24 10:37 Physical Exam Vitals: Vital Signs Temp Pulse Resp BP Pulse Ox 06/19/24 13:34 98.6 F 77 14 148/95 98 06/19/24 13:00 74 06/19/24 12:07 98.3 F 80 18 153/97 98 06/19/24 08:00 96 F L 85 16 160/105 96 06/19/24 07:12 98.2 F 82 16 154/96 98 06/19/24 05:05 77 156/98 06/19/24 01:05 98.6 F 79 18 165/102 99 06/18/24 23:31 80 157/100 06/18/24 22:20 84 178/109 06/18/24 19:35 98.1 F 80 16 158/93 97 Intake and Output 06/18/24 06/19/24 06/19/24 22:59 06:59 14:59 Intake Total 1599 Balance 1599 Intake: Oral 1599 Other: # Voids 2 1 General appearance: The patient is alert, oriented, appears in no acute distress. HET: Head is normocephalic and atraumatic. Conjunctiva pink. Sclera anicteric. Neck: Supple without lymphadenopathy. Trachea midline. Heart: Regular. Lungs: Equal expansion, normal respiratory effort. Abdomen: Soft, upper mid abdominal tenderness, nondistended. Skin: No rashes. No jaundice. Extremities: Normal skin color and turgor. No pedal edema. Neurological: No focal deficits. Alert and oriented x3. Results CBC & Chem 7: 06/19/24 04:06 06/19/24 04:06 Labs: Abnormal Lab Results - Last 24 Hours (Table) 06/19/24 06/19/24 Range/Units 04:06 04:06 WBC 11.25 H (4.50-10.00) X 10*3/uL RBC 3.48 L (4.10-5.20) X 10*6/uL MCV 114.1 H (80.0-97.0) FL MCH 38.8 H (27.0-32.0) pg Immature Gran # 0.09 H (0.00-0.04) X 10*3/uL Neutrophils # 9.38 H (1.80-7.70) X 10*3/uL Lymphocytes # 0.79 L (0.90-5.00) X 10*3/uL Carbon Dioxide 18.5 L (21.6-31.8) mmol/L BUN 4.6 L (9.0-27.0) mg/dL BUN/Creatinine Ratio 7.67 L (12.00-20.00) Ratio AST 42 H (13-35) U/L ALT 48 H (8-44) U/L C-Reactive Protein 8.60 H (0.00-0.80) mg/dL Total Protein 5.9 L (6.2-8.2) g/dL Albumin 3.6 L (3.8-4.9) g/dL Albumin/Globulin Ratio 1.57 L (1.60-3.17) Ratio LDL Cholesterol, Calc 132.0 H (0.0-131.0) mg/dL HDL Cholesterol 25.80 L (40.00-60.00) mg/dL Amylase 259 H (23-121) U/L Lipase 405 H (14-63) U/L Comments: CT abdomen pelvis with contrast reports acute pancreatitis with fluid surrounding the head and proximal body. No pseudocyst formation or abscess formation identified at this time. Correlate with laboratory results. Assessment and Plan (1) Pancreatitis Narrative/Plan: 29-year-old female with prior history of pancreatitis presented with abdominal pain elevated amylase and lipase and a CT of the abdomen pelvis consistent with pancreatitis. Patient admits to binge drinking the weekend prior to her symptoms. Also admits to binge drinking often within the last 1 year duration. Likely dealing with acute uncomplicated alcohol pancreatitis. No further workup indicated. Continue with symptomatic care. Current Visit: Yes Status: Acute Code(s): K85.90 - ACUTE PANCREATITIS WITHOUT NECROSIS OR INFECTION, UNSP SNOMED Code(s): 06167067 Plan: 1. Continue symptomatic and supportive care 2. Continue with aggressive IV hydration 3. Pain medications as needed 4. Antiemetics as needed 5. Protonix 40 mg daily for GI prophylaxis 6. Recommend alcohol abstinence 7. Advance diet as tolerated Thank you for this consultation, we will continue to follow. Dr. Luis Alfredo Alvarez I agree with the dictator's note, documented as a scribe by Cheryl London.
--- NOTE | 2024-06-19 16:04 | P.PN ---
Subjective Progress Note Date: 06/19/24 SURGICAL PROGRESS NOTE CHIEF COMPLAINT: Pancreatitis HISTORY OF PRESENT ILLNESS: Patient continues to complain of epigastric pain but does report that she is feeling better than admission. She reports that she has had no vomiting today. Nausea is better. She is complaining of constipation. Afebrile. Lipase is down from 4221-405. Gallbladder ultrasound with no evidence of gallstones PHYSICAL EXAM: VITAL SIGNS: Reviewed. GENERAL: Well-developed in no acute distress. ABDOMEN: Soft. Mild epigastric tenderness NEUROLOGIC: Alert and oriented. Cranial nerves II through XII grossly intact. ASSESSMENT: 1. Acute alcoholic pancreatitis improving PLAN: -Patient evaluated by GI service. Agree with advancing diet to full liquids -No surgical intervention planned -Colace added for constipation -Surgical service will sign off. Please call with any questions or concerns Physician Classification Inspector note has been reviewed by physician. Signing provider agrees with the documented findings, assessment, and plan of care. Objective - Vital Signs Vital signs: Vital Signs Temp 98.6 F 06/19/24 13:34 Pulse 77 06/19/24 13:34 Resp 14 06/19/24 13:34 BP 148/95 06/19/24 13:34 Pulse Ox 98 06/19/24 13:34 FiO2 Intake & Output 06/18/24 06/19/24 06/19/24 18:59 06:59 18:59 Intake Total 1260 339 Balance 1260 339 Intake: Oral 1260 339 Other: # Voids 2 1 - Labs CBC & Chem 7: 06/19/24 04:06 06/19/24 04:06 Labs: Abnormal Lab Results - Last 24 Hours (Table) 06/19/24 06/19/24 Range/Units 04:06 04:06 WBC 11.25 H (4.50-10.00) X 10*3/uL RBC 3.48 L (4.10-5.20) X 10*6/uL MCV 114.1 H (80.0-97.0) FL MCH 38.8 H (27.0-32.0) pg Immature Gran # 0.09 H (0.00-0.04) X 10*3/uL Neutrophils # 9.38 H (1.80-7.70) X 10*3/uL Lymphocytes # 0.79 L (0.90-5.00) X 10*3/uL Carbon Dioxide 18.5 L (21.6-31.8) mmol/L BUN 4.6 L (9.0-27.0) mg/dL BUN/Creatinine Ratio 7.67 L (12.00-20.00) Ratio AST 42 H (13-35) U/L ALT 48 H (8-44) U/L C-Reactive Protein 8.60 H (0.00-0.80) mg/dL Total Protein 5.9 L (6.2-8.2) g/dL Albumin 3.6 L (3.8-4.9) g/dL Albumin/Globulin Ratio 1.57 L (1.60-3.17) Ratio LDL Cholesterol, Calc 132.0 H (0.0-131.0) mg/dL HDL Cholesterol 25.80 L (40.00-60.00) mg/dL Amylase 259 H (23-121) U/L Lipase 405 H (14-63) U/L Assessment and Plan Assessment: Acute alcoholic pancreatitis improving PLAN: -Patient evaluated by GI service. Agree with advancing diet to full liquids -No surgical intervention planned -Colace added for constipation -Surgical service will sign off. Please call with any questions or concerns Time with Patient: Less than 30
--- NOTE | 2024-06-20 04:51 | PN ---
PROGRESS NOTE DATE OF SERVICE: 06/19/2024 SUBJECTIVE: This is a 29-year-old woman, who was admitted with significant severe pancreatitis, alcohol withdrawal, is being closely monitored. Empiric antibiotics. Multiple consultants are following the patient closely. PAST MEDICAL HISTORY: Reviewed. REVIEW OF SYSTEMS: Fourteen-point review of systems is negative except as mentioned earlier. CURRENT MEDICATIONS: Reviewed. PHYSICAL EXAMINATION: VITAL SIGNS: Pulse is 80, blood pressure 153/97, respirations 18. HEENT: Conjunctivae normal. NECK: No JVD. CARDIOVASCULAR: S1, S2. RESPIRATIONS: Breath sounds diminished at the bases. A few scattered rhonchi. ABDOMEN: Soft, diffuse tenderness. No guarding. No rigidity. No mass. LEGS: No edema. NERVOUS SYSTEM: Nonfocal. LABORATORY DATA: WBC 11.25. Rest of the labs are noted. Lipase is 405. ASSESSMENT: 1. Acute severe pancreatitis, possibly secondary to EtOH with possible sepsis present on admission. 2. Alcoholic transaminitis. 3. Hypertension. 4. Acute alcohol withdrawal. 5. Dehydration. 6. Obesity. 7. Multiple complex medical issues. RECOMMENDATIONS AND DISCUSSION: Recommend to continue current medications, continue symptomatic treatment. Otherwise, repeat labs. Continue the antibiotics. I would also recommend continue with clonidine and multiple vitamin supplements. Continue with IV fluids. Guarded prognosis. Closely follow with multiple consultants and further plans to follow. The patient is on full liquids. MMODL / IJN: [id number] /
[2024-06-20 08:46] LABS: Basophils # (A) 0.03 X 10*3/uL (0.00-0.10); Basophils % (A) 0.2 %; Eosinophils # (A) 0.11 X 10*3/uL (0.04-0.35); Eosinophils % (A) 0.9 %; HCT 40.1 % (37.2-46.3); HGB 13.9 g/dL (12.0-15.0); Lymphocytes # (A) 0.86 X 10*3/uL (0.90-5.00); Lymphocytes % (A) 6.9 %; MCH 37.9 pg (27.0-32.0); MCHC 34.7 g/dL (32.0-37.0); MCV 109.3 FL (80.0-97.0); Mean Platelet Volume 10.6 FL (9.5-12.2); Monocytes # (A) 1.08 X 10*3/uL (0.20-1.00); Monocytes % (A) 8.6 %; NRBC Per 100 WBC 0 X 10*3/uL (0.00-0.01); Neutrophils # (A) 10.35 X 10*3/uL (1.80-7.70); Neutrophils % (A) 82.8 %; Platelet Count 161 X 10*3/uL (140-440); RBC 3.67 X 10*6/uL (4.10-5.20); RDW 13.8 % (11.5-14.5)
[2024-06-20 08:58] LABS: ALT 36 U/L (8-44); AST 29 U/L (13-35); Albumin 3.5 g/dL (3.8-4.9); Albumin/Globulin Ratio 1.46 Ratio (1.60-3.17); Alkaline Phosphatase 70 U/L (41-126); Amylase 218 U/L (23-121); BUN/Creat Ratio 8.71 Ratio (12.00-20.00); Blood Urea Nitrogen 6.1 mg/dL (9.0-27.0); Calcium 8.9 mg/dL (8.7-10.3); Chloride 105 mmol/L (96-109); Globulin 2.4 g/dL (1.6-3.3); Glucose 79 mg/dL (70-110); Potassium 3.8 mmol/L (3.5-5.5); Sodium 138 mmol/L (135-145); Total Bilirubin 1.3 mg/dL (0.3-1.2); Total Protein 5.9 g/dL (6.2-8.2)
[2024-06-20] MEDS: POTASSIUM CHLORIDE ER 20 MEQ TAB.ER PO SCH (11:10)
--- NOTE | 2024-06-20 11:25 | P.PN ---
Subjective Progress Note Date: 06/20/24 Principal diagnosis: Pancreatitis This is a pleasant 29-year-old female who presented to the hospital 3 days ago with complaints of epigastric abdominal pain associated with nausea and vomiting. States that pain started last or Tuesday which got progressively worse so she came in for further evaluation. She was noted to have elevated amylase and lipase. She had a CAT scan of the abdomen and pelvis that showed acute pancreatitis. General surgery was initially consulted as there was no GI present in the hospital. Patient admits to heavy binge drinking the weekend prior for 3 days straight with vodka. She states that she has been drinking over the last 1 year duration heavy at times. She has had no prior history of pancreatitis. States abdominal pain is improving. No nausea or vomiting at this time. Just very tired. Admitting labs WBC 12.3 hemoglobin 18 platelet count 230,000 total bilirubin 1.8 AST 166 ALT 144 alkaline phosphatase 88 amylase 340 and lipase 3881. Amylase and lipase as well as LFTs trending down. Today total bilirubin 0.9 AST 42 ALT 48 alkaline phosphatase 58 amylase 259 lipase 405 06/20/2024 Patient seen and examined today as a follow-up. She states abdominal pain is much improved. No nausea or vomiting. She has been tolerating full liquid diet. Yesterday amylase and lipase had been trending down. Lipase 405. Patient is afebrile. Patient has leukocytosis likely secondary to reactive from pancreatitis/inflammation. Infectious disease following Objective - Vital Signs Vital signs: Vital Signs Temp 98.9 F 06/20/24 07:35 Pulse 88 06/20/24 07:35 Resp 17 06/20/24 07:35 BP 144/90 06/20/24 07:35 Pulse Ox 97 06/20/24 07:35 FiO2 Intake & Output 06/19/24 06/20/24 06/20/24 18:59 06:59 18:59 Intake Total 540 Balance 540 Intake: Oral 540 Other: # Voids 2 - Exam General appearance: The patient is alert, oriented, appears in no acute distress. HET: Head is normocephalic and atraumatic. Conjunctiva pink. Sclera anicteric. Neck: Supple without lymphadenopathy. Abdomen: Soft, nontender, nondistended. Extremities: Normal skin color and turgor. No pedal edema Skin: No rashes, no jaundice Neurological: No focal deficits. Alert and oriented. - Labs CBC & Chem 7: 06/20/24 04:16 06/20/24 04:16 Labs: Abnormal Lab Results - Last 24 Hours (Table) 06/19/24 06/20/24 06/20/24 Range/Units 04:06 04:16 04:16 WBC 11.25 H 12.50 H (4.50-10.00) X 10*3/uL RBC 3.48 L 3.67 L (4.10-5.20) X 10*6/uL MCV 114.1 H 109.3 H (80.0-97.0) FL MCH 38.8 H 37.9 H (27.0-32.0) pg Immature Gran # 0.09 H 0.07 H (0.00-0.04) X 10*3/uL Neutrophils # 9.38 H 10.35 H (1.80-7.70) X 10*3/uL Lymphocytes # 0.79 L 0.86 L (0.90-5.00) X 10*3/uL Monocytes # 1.08 H (0.20-1.00) X 10*3/uL BUN 6.1 L (9.0-27.0) mg/dL BUN/Creatinine Ratio 8.71 L (12.00-20.00) Ratio Total Bilirubin 1.3 H (0.3-1.2) mg/dL Total Protein 5.9 L (6.2-8.2) g/dL Albumin 3.5 L (3.8-4.9) g/dL Albumin/Globulin Ratio 1.46 L (1.60-3.17) Ratio Amylase 218 H (23-121) U/L Microbiology - Last 24 Hours (Table) 06/18/24 14:18 Blood Culture - Preliminary Blood Assessment and Plan (1) Pancreatitis Narrative/Plan: 29-year-old female with prior history of pancreatitis presented with abdominal pain elevated amylase and lipase and a CT of the abdomen pelvis consistent with pancreatitis. Patient admits to binge drinking the weekend prior to her symptoms. Also admits to binge drinking often within the last 1 year duration. Likely dealing with acute uncomplicated alcohol pancreatitis. No further workup indicated. Continue with symptomatic care. Current Visit: Yes Status: Acute Code(s): K85.90 - ACUTE PANCREATITIS WITHOUT NECROSIS OR INFECTION, UNSP SNOMED Code(s): 09459181 Plan: 1. Continue symptomatic and supportive care 2. Advance to low-fat diet 3. Antiemetics as needed 5. Protonix 40 mg daily for GI prophylaxis 6. Recommend alcohol abstinence 7. Rest of medical management per primary medical team Thank you for this consultation, patient is cleared from gastroenterology for discharge. We will sign off at this time. Dr. Luis Alfredo Alvarez I agree with the dictator's note, documented as a scribe by Cheryl London.
--- NOTE | 2024-06-20 12:20 | P.PN ---
Subjective Progress Note Date: 06/20/24 Principal diagnosis: Reason for follow-up is pancreatitis/leukocytosis question of sepsis Patient is a 29-year-old female with a past medical history significant for hypertension hypothyroidism kidney stone presenting to the hospital for evaluation of abdominal pain patient be diagnosed with alcoholic pancreatitis ultrasound of the gallbladder did not show any evidence of gallstone patient did have mild elevated white count with admitting concerning for possible sepsis related to the pancreatitis prompting this consultation. On today's evaluation that is 06/20/2024, patient has been afebrile, patient is breathing comfortably and is currently on room air, patient denies having any significant cough no chest pain, patient denies nausea vomiting abdominal pain h as slightly decreased intensity no bowel movement. Patient white count is slightly up to 12.50 creatinine 0.7 blood cultures are pending Objective - Vital Signs Vital signs: Vital Signs Temp 98.9 F 06/20/24 07:35 Pulse 88 06/20/24 07:35 Resp 17 06/20/24 07:35 BP 144/90 06/20/24 07:35 Pulse Ox 97 06/20/24 07:35 FiO2 Intake & Output 06/19/24 06/20/24 06/20/24 18:59 06:59 18:59 Intake Total 540 Balance 540 Intake: Oral 540 Other: # Voids 2 - Exam GENERAL DESCRIPTION: Middle-age female lying in bed in no distress RESPIRATORY SYSTEM: Unlabored breathing , decreased breath sounds at bases HEART: S1 S2 regular rate and rhythm , ABDOMEN: Soft , mild tenderness EXTREMITIES: No edema feet - Labs CBC & Chem 7: 06/20/24 04:16 06/20/24 04:16 Labs: Abnormal Lab Results - Last 24 Hours (Table) 06/19/24 06/20/24 06/20/24 Range/Units 04:06 04:16 04:16 WBC 11.25 H 12.50 H (4.50-10.00) X 10*3/uL RBC 3.48 L 3.67 L (4.10-5.20) X 10*6/uL MCV 114.1 H 109.3 H (80.0-97.0) FL MCH 38.8 H 37.9 H (27.0-32.0) pg Immature Gran # 0.09 H 0.07 H (0.00-0.04) X 10*3/uL Neutrophils # 9.38 H 10.35 H (1.80-7.70) X 10*3/uL Lymphocytes # 0.79 L 0.86 L (0.90-5.00) X 10*3/uL Monocytes # 1.08 H (0.20-1.00) X 10*3/uL BUN 6.1 L (9.0-27.0) mg/dL BUN/Creatinine Ratio 8.71 L (12.00-20.00) Ratio Total Bilirubin 1.3 H (0.3-1.2) mg/dL Total Protein 5.9 L (6.2-8.2) g/dL Albumin 3.5 L (3.8-4.9) g/dL Albumin/Globulin Ratio 1.46 L (1.60-3.17) Ratio Amylase 218 H (23-121) U/L Microbiology - Last 24 Hours (Table) 06/18/24 14:18 Blood Culture - Preliminary Blood Assessment and Plan (1) Leukocytosis Current Visit: Yes Status: Acute Code(s): D72.829 - ELEVATED WHITE BLOOD CELL COUNT, UNSPECIFIED SNOMED Code(s): 536087971 (2) Acute alcoholic pancreatitis Current Visit: Yes Status: Acute Code(s): K85.20 - ALCOHOL INDUCED ACUTE PANCREATITIS WITHOUT NECROSIS OR INFCT SNOMED Code(s): 214461864 Plan: 1patient presented to hospital abdominal pain and this patient has been diagnosed with acute on chronic pancreatitis ultrasound did not show any e vidence of gallstones CT did not show any evidence of necrotizing pancreatitis or any evidence of abscess or pseudocyst formation patient is not running any fever and no significant tachycardia or elevated white count not meeting criteria for SIRS/sepsis or infected necrosis clinically 2-patient white count is slightly up however the patient will be afebrile patient improving with abdominal pain we will continue with empiric Zosyn and monitor clinical course closely Dictation was produced using [employer] software. please excuse any grammatical, word or spelling errors. Time with Patient: Less than 30
--- NOTE | 2024-06-21 04:55 | PN ---
PROGRESS NOTE DATE OF SERVICE: 06/20/2024 SUBJECTIVE: This is a 29-year-old woman, who was admitted with significant alcohol withdrawal, had significant severe pancreatitis also. The patient is complaining of abdominal pain. The patient had elevated WBC. PAST MEDICAL HISTORY: Reviewed. REVIEW OF SYSTEMS: A 14-point review of systems is negative except as mentioned earlier. CURRENT MEDICATIONS: Reviewed. PHYSICAL EXAMINATION: VITAL SIGNS: Pulse is 85, blood pressure 141/80, respirations 15. HEENT: Conjunctivae normal. NECK: No JVD. CARDIOVASCULAR: S1 S2. RESPIRATIONS: Breath sounds diminished at the bases. Scattered rhonchi and crackles. ABDOMEN: Soft. Mild diffuse tenderness. No guarding. No rigidity. LABORATORY DATA: WBC 12.5. The rest of the labs are noted. Amylase 218. Lipase 405. ASSESSMENT: 1. Acute severe pancreatitis, possibly secondary to EtOH and possible sepsis present on admission. 2. Alcoholic transaminitis. 3. Hypertension. 4. Acute alcohol withdrawal. 5. Dehydration. 6. Obesity. 7. Multiple complex medical issues. RECOMMENDATIONS AND DISCUSSION: Recommend to continue current management and continue symptomatic treatment. The cultures are negative so far. Continue current medications. The patient appears to be slowly improving. I would recommend repeat labs and repeat amylase and lipase. Closely follow with Infectious Disease and Gastroenterology also. MMODL / IJN: [id number] /
[2024-06-21 08:45] LABS: Basophils # (A) 0.02 X 10*3/uL (0.00-0.10); Basophils % (A) 0.2 %; Eosinophils # (A) 0.13 X 10*3/uL (0.04-0.35); Eosinophils % (A) 1.3 %; HCT 37.5 % (37.2-46.3); Lymphocytes # (A) 0.91 X 10*3/uL (0.90-5.00); Lymphocytes % (A) 8.9 %; MCH 38.2 pg (27.0-32.0); MCHC 34.7 g/dL (32.0-37.0); MCV 110.3 FL (80.0-97.0); Monocytes # (A) 1.02 X 10*3/uL (0.20-1.00); Monocytes % (A) 9.9 %; NRBC Per 100 WBC 0 X 10*3/uL (0.00-0.01); Neutrophils # (A) 8.12 X 10*3/uL (1.80-7.70); Platelet Count 169 X 10*3/uL (140-440); RDW 13.5 % (11.5-14.5); WBC 10.27 X 10*3/uL (4.50-10.00)
--- NOTE | 2024-06-21 08:46 | P.PN ---
Subjective Progress Note Date: 06/21/24 Principal diagnosis: Pancreatitis This is a pleasant 29-year-old female who presented to the hospital 3 days ago with complaints of epigastric abdominal pain associated with nausea and vomiting. States that pain started last or Tuesday which got progressively worse so she came in for further evaluation. She was noted to have elevated amylase and lipase. She had a CAT scan of the abdomen and pelvis that showed acute pancreatitis. General surgery was initially consulted as there was no GI present in the hospital. Patient admits to heavy binge drinking the weekend prior for 3 days straight with vodka. She states that she has been drinking over the last 1 year duration heavy at times. She has had no prior history of pancreatitis. States abdominal pain is improving. No nausea or vomiting at this time. Just very tired. Admitting labs WBC 12.3 hemoglobin 18 platelet count 230,000 total bilirubin 1.8 AST 166 ALT 144 alkaline phosphatase 88 amylase 340 and lipase 3881. Amylase and lipase as well as LFTs trending down. Today total bilirubin 0.9 AST 42 ALT 48 alkaline phosphatase 58 amylase 259 lipase 405 06/20/2024 Patient seen and examined today as a follow-up. She states abdominal pain is much improved. No nausea or vomiting. She has been tolerating full liquid diet. Yesterday amylase and lipase had been trending down. Lipase 405. Patient is afebrile. Patient has leukocytosis likely secondary to reactive from pancreatitis/inflammation. Infectious disease following 06/21/2024 Patient is seen and examined today as a follow-up. States she has not had any pain medication since about 3 AM. Patient only has acetaminophen and IV Dilau did ordered. She states that abdominal pain continues to improve she has some mild discomfort in her left mid abdomen. No nausea or vomiting. Blood cultures are negative to date. Tolerating a regular diet. Labs are currently pending for today. Objective - Vital Signs Vital signs: Vital Signs Temp 98.1 F 06/21/24 07:40 Pulse 71 06/21/24 07:40 Resp 20 06/21/24 07:40 BP 157/108 06/21/24 07:40 Pulse Ox 100 06/21/24 07:40 FiO2 Intake & Output 06/20/24 06/21/24 06/21/24 18:59 06:59 18:59 Intake Total 2898 Balance 2898 Intake: Intake, IV Titration 2000 Amount 0.9% NaCl with KCl 20 Meq 1800 /l 1,000 ml @ 150 mls/hr IV .Q6H40M [facility] Rx#: [id number] Piperacillin-Tazobactam 3 200 .375 gm In Sodium Chloride 0.9% 100 ml @ 25 mls/hr IVPB Q8HR [facility] Rx# :[id number] Oral 898 Other: # Voids 2 2 - Exam General appearance: The patient is alert, oriented, appears in no acute distress. HET: Head is normocephalic and atraumatic. Conjunctiva pink. Sclera anicteric. Neck: Supple without lymphadenopathy. Abdomen: Soft, mild tenderness left mid abdomen,, nondistended. Extremities: Normal skin color and turgor. No pedal edema Skin: No rashes, no jaundice Neurological: No focal deficits. Alert and oriented. - Labs CBC & Chem 7: 06/20/24 04:16 06/20/24 04:16 Labs: Abnormal Lab Results - Last 24 Hours (Table) 06/20/24 06/20/24 Range/Units 04:16 04:16 WBC 12.50 H (4.50-10.00) X 10*3/uL RBC 3.67 L (4.10-5.20) X 10*6/uL MCV 109.3 H (80.0-97.0) FL MCH 37.9 H (27.0-32.0) pg Immature Gran # 0.07 H (0.00-0.04) X 10*3/uL Neutrophils # 10.35 H (1.80-7.70) X 10*3/uL Lymphocytes # 0.86 L (0.90-5.00) X 10*3/uL Monocytes # 1.08 H (0.20-1.00) X 10*3/uL BUN 6.1 L (9.0-27.0) mg/dL BUN/Creatinine Ratio 8.71 L (12.00-20.00) Ratio Total Bilirubin 1.3 H (0.3-1.2) mg/dL Total Protein 5.9 L (6.2-8.2) g/dL Albumin 3.5 L (3.8-4.9) g/dL Albumin/Globulin Ratio 1.46 L (1.60-3.17) Ratio Amylase 218 H (23-121) U/L Microbiology - Last 24 Hours (Table) 06/18/24 14:18 Blood Culture - Preliminary Blood Assessment and Plan (1) Pancreatitis Narrative/Plan: 29-year-old female with prior history of pancreatitis presented with abdominal pain elevated amylase and lipase and a CT of the abdomen pelvis consistent with pancreatitis. Patient admits to binge drinking the weekend prior to her symptoms. Also admits to binge drinking often within the last 1 year duration. Likely dealing with acute uncomplicated alcohol pancreatitis. No further workup indicated. Continue with symptomatic care. Current Visit: Yes Status: Acute Code(s): K85.90 - ACUTE PANCREATITIS WITHOUT NECROSIS OR INFECTION, UNSP SNOMED Code(s): 95795032 Plan: 1. Continue symptomatic and supportive care 2. Advance to low-fat diet 3. Antiemetics as needed 5. Protonix 40 mg daily for GI prophylaxis 6. Recommend alcohol abstinence 7. Recommend transitioning from IV pain medication to oral pain medication 8. Encourage ambulation 9. Rest of medical management per primary medical team Thank you for this consultation, patient is cleared from gastroenterology for discharge. Dr. Luis Alfredo Alvarez I agree with the dictator's note, documented as a scribe by Cheryl London.
[2024-06-21 08:53] LABS: ALT 28 U/L (8-44); AST 22 U/L (13-35); Albumin 3.4 g/dL (3.8-4.9); Albumin/Globulin Ratio 1.42 Ratio (1.60-3.17); Alkaline Phosphatase 90 U/L (41-126); Amylase 189 U/L (23-121); BUN/Creat Ratio 9.71 Ratio (12.00-20.00); Blood Urea Nitrogen 6.8 mg/dL (9.0-27.0); Calcium 8.8 mg/dL (8.7-10.3); Carbon Dioxide 22.1 mmol/L (21.6-31.8); Chloride 106 mmol/L (96-109); Globulin 2.4 g/dL (1.6-3.3); Glucose 83 mg/dL (70-110); Magnesium 2.2 mg/dL (1.5-2.4); Potassium 4.4 mmol/L (3.5-5.5); Sodium 139 mmol/L (135-145); Total Protein 5.8 g/dL (6.2-8.2)
[2024-06-21 08:54] LABS: Lipase 152 U/L (14-63)
[2024-06-21] MEDS: HYDROcodone/APAP 5-325MG 1 EACH TAB PO PRN (12:54)
--- NOTE | 2024-06-21 13:47 | P.PN ---
Subjective Progress Note Date: 06/21/24 Principal diagnosis: Reason for follow-up is pancreatitis/leukocytosis question of sepsis Patient is a 29-year-old female with a past medical history significant for hypertension hypothyroidism kidney stone presenting to the hospital for evaluation of abdominal pain patient be diagnosed with alcoholic pancreatitis ultrasound of the gallbladder did not show any evidence of gallstone patient did have mild elevated white count with admitting concerning for possible sepsis related to the pancreatitis prompting this consultation. On today's evaluation that is 06/21/2024, Patient is afebrile this morning patient denies having any chest pain shortness of breath or cough, the patient is currently on room air, patient denies any abdominal pain no diarrhea no nausea no vomiting nausea vomiting abdominal pain is slightly decreased. Patient white count is 10.27, creatinine 0.7 Objective - Vital Signs Vital signs: Vital Signs Temp 98.3 F 06/21/24 12:36 Pulse 70 06/21/24 12:36 Resp 20 06/21/24 12:36 BP 155/99 06/21/24 12:36 Pulse Ox 99 06/21/24 12:36 FiO2 Intake & Output 06/20/24 06/21/24 06/21/24 18:59 06:59 18:59 Intake Total 2898 Balance 2898 Intake: Intake, IV Titration 2000 Amount 0.9% NaCl with KCl 20 Meq 1800 /l 1,000 ml @ 150 mls/hr IV .Q6H40M [facility] Rx#: [id number] Piperacillin-Tazobactam 3 200 .375 gm In Sodium Chloride 0.9% 100 ml @ 25 mls/hr IVPB Q8HR [facility] Rx# :[id number] Oral 898 Other: # Voids 2 2 - Exam GENERAL DESCRIPTION: Middle-age female lying in bed in no distress RESPIRATORY SYSTEM: Unlabored breathing , decreased breath sounds at bases HEART: S1 S2 regular rate and rhythm , ABDOMEN: Soft , mild tenderness EXTREMITIES: No edema feet - Labs CBC & Chem 7: 06/21/24 04:34 06/21/24 04:34 Labs: Abnormal Lab Results - Last 24 Hours (Table) 06/21/24 06/21/24 Range/Units 04:34 04:34 WBC 10.27 H (4.50-10.00) X 10*3/uL RBC 3.40 L (4.10-5.20) X 10*6/uL MCV 110.3 H (80.0-97.0) FL MCH 38.2 H (27.0-32.0) pg Immature Gran # 0.07 H (0.00-0.04) X 10*3/uL Neutrophils # 8.12 H (1.80-7.70) X 10*3/uL Monocytes # 1.02 H (0.20-1.00) X 10*3/uL BUN 6.8 L (9.0-27.0) mg/dL BUN/Creatinine Ratio 9.71 L (12.00-20.00) Ratio Total Protein 5.8 L (6.2-8.2) g/dL Albumin 3.4 L (3.8-4.9) g/dL Albumin/Globulin Ratio 1.42 L (1.60-3.17) Ratio Amylase 189 H (23-121) U/L Lipase 152 H (14-63) U/L Microbiology - Last 24 Hours (Table) 06/18/24 14:18 Blood Culture - Preliminary Blood Assessment and Plan (1) Leukocytosis Current Visit: Yes Status: Acute Code(s): D72.829 - ELEVATED WHITE BLOOD CELL COUNT, UNSPECIFIED SNOMED Code(s): 685736037 (2) Acute alcoholic pancreatitis Current Visit: Yes Status: Acute Code(s): K85.20 - ALCOHOL INDUCED ACUTE PANCREATITIS WITHOUT NECROSIS OR INFCT SNOMED Code(s): 820233390 Plan: 1patient presented to hospital abdominal pain and this patient has been diagnosed with acute on chronic pancreatitis ultrasound did not show any evidence of gallstones CT did not show any evidence of necrotizing pancreatitis or any evidence of abscess or pseudocyst formation patient is not running any fever and no significant tachycardia or elevated white count not meeting criteria for SIRS/sepsis or infected necrosis clinically 2-patient white count is trending down, patient is afebrile patient improving with abdominal pain we will continue with empiric Zosyn and continue supportive care Dictation was produced using [employer] dictation software. please excuse any grammatical, word or spelling errors. Time with Patient: Less than 30
--- NOTE | 2024-06-22 02:51 | PN ---
PROGRESS NOTE DATE OF SERVICE: 06/21/2024 SUBJECTIVE: This is a 29-year-old woman, who was admitted with acute severe pancreatitis secondary to EtOH, is being closely monitored. No chest pain. No palpitations. No fever. The white count is still elevated. The patient is on empiric antibiotics. PAST MEDICAL HISTORY: Reviewed. REVIEW OF SYSTEMS: A 14-point review is negative except as mentioned earlier. CURRENT MEDICATIONS: Reviewed include, 1. IV meropenem. 2. IV Zosyn. PHYSICAL EXAMINATION: VITAL SIGNS: Pulse is 70, blood pressure 155/99, respirations 20. HEENT: Conjunctivae normal. NECK: No JVD. CARDIOVASCULAR: S1, S2. RESPIRATIONS: Breath sounds diminished at the bases. ABDOMEN: Soft, diffuse tenderness in the epigastrium. No guarding. No rigidity. No mass palpable. LEGS: No edema. NERVOUS SYSTEM: Nonfocal. LABORATORY DATA: Noted. ASSESSMENT: 1. Acute severe pancreatitis, possibly secondary to EtoH and possible sepsis present on admission, on empiric antibiotics. 2. Alcoholic transaminitis. 3. Hypertension. 4. Acute alcohol withdrawal. 5. Dehydration. 6. Obesity. 7. Multiple complex medical issues. RECOMMENDATIONS AND DISCUSSION: Recommend to continue current management and continue symptomatic treatment. Continue with IV fluids. Chest x-ray was repeated. Advance the diet and I will cut down the IV fluids also. Extremely guarded prognosis because of multiple complex medical issues. Alcohol cessation per outpatient. Probably discharge in the next 24 hours if the patient is stable. Repeat labs will be ordered. MMODL / IJN: [id number] /
[2024-06-22 08:40] LABS: Basophils # (A) 0.04 X 10*3/uL (0.00-0.10); Basophils % (A) 0.4 %; Eosinophils # (A) 0.15 X 10*3/uL (0.04-0.35); Eosinophils % (A) 1.4 %; HCT 40.5 % (37.2-46.3); Lymphocytes % (A) 14.6 %; MCH 37.4 pg (27.0-32.0); MCHC 34.6 g/dL (32.0-37.0); MCV 108.3 FL (80.0-97.0); Mean Platelet Volume 10.8 FL (9.5-12.2); Monocytes # (A) 1.16 X 10*3/uL (0.20-1.00); Monocytes % (A) 10.6 %; NRBC Per 100 WBC 0 X 10*3/uL (0.00-0.01); Neutrophils # (A) 7.91 X 10*3/uL (1.80-7.70); Neutrophils % (A) 71.8 %; Platelet Count 212 X 10*3/uL (140-440); RBC 3.74 X 10*6/uL (4.10-5.20); RDW 13.5 % (11.5-14.5); WBC 10.99 X 10*3/uL (4.50-10.00)
[2024-06-22 09:11] LABS: Amylase 151 U/L (23-121); Lipase 174 U/L (14-63)
--- NOTE | 2024-06-22 09:12 | P.PN ---
Subjective Progress Note Date: 06/22/24 Principal diagnosis: Pancreatitis This is a pleasant 29-year-old female who presented to the hospital 3 days ago with complaints of epigastric abdominal pain associated with nausea and vomiting. States that pain started last or Tuesday which got progressively worse so she came in for further evaluation. She was noted to have elevated amylase and lipase. She had a CAT scan of the abdomen and pelvis that showed acute pancreatitis. General surgery was initially consulted as there was no GI present in the hospital. Patient admits to heavy binge drinking the weekend prior for 3 days straight with vodka. She states that she has been drinking over the last 1 year duration heavy at times. She has had no prior history of pancreatitis. States abdominal pain is improving. No nausea or vomiting at this time. Just very tired. Admitting labs WBC 12.3 hemoglobin 18 platelet count 230,000 total bilirubin 1.8 AST 166 ALT 144 alkaline phosphatase 88 amylase 340 and lipase 3881. Amylase and lipase as well as LFTs trending down. Today total bilirubin 0.9 AST 42 ALT 48 alkaline phosphatase 58 amylase 259 lipase 405 06/20/2024 Patient seen and examined today as a follow-up. She states abdominal pain is much improved. No nausea or vomiting. She has been tolerating full liquid diet. Yesterday amylase and lipase had been trending down. Lipase 405. Patient is afebrile. Patient has leukocytosis likely secondary to reactive from pancreatitis/inflammation. Infectious disease following 06/21/2024 Patient is seen and examined today as a follow-up. States she has not had any pain medication since about 3 AM. Patient only has acetaminophen and IV Dilau did ordered. She states that abdominal pain continues to improve she has some mild discomfort in her left mid abdomen. No nausea or vomiting. Blood cultures are negative to date. Tolerating a regular diet. Labs are currently pending for today. 06/22/2024 Patient seen and examined today as a follow-up. States abdominal pain is improved. No nausea or vomiting. Tolerating low-fat diet. Lipase has been trending down as has white count. No signs of infection. She has been afebrile. Objective - Vital Signs Vital signs: Vital Signs Temp 97.8 F 06/22/24 02:00 Pulse 60 06/22/24 02:00 Resp 16 06/22/24 02:00 BP 153/99 06/22/24 02:00 Pulse Ox 100 06/22/24 02:00 FiO2 Intake & Output 06/21/24 06/21/24 06/22/24 06:59 18:59 06:59 Other: # Voids 2 2 - Exam General appearance: The patient is alert, oriented, appears in no acute distress. HET: Head is normocephalic and atraumatic. Conjunctiva pink. Sclera anicteric. Neck: Supple without lymphadenopathy. Abdomen: Soft, nontender, nondistended. Extremities: Normal skin color and turgor. No pedal edema Skin: No rashes, no jaundice Neurological: No focal deficits. Alert and oriented. - Labs CBC & Chem 7: 06/22/24 04:54 06/21/24 04:34 Labs: Abnormal Lab Results - Last 24 Hours (Table) 06/21/24 06/21/24 Range/Units 04:34 04:34 WBC 10.27 H (4.50-10.00) X 10*3/uL RBC 3.40 L (4.10-5.20) X 10*6/uL MCV 110.3 H (80.0-97.0) FL MCH 38.2 H (27.0-32.0) pg Immature Gran # 0.07 H (0.00-0.04) X 10*3/uL Neutrophils # 8.12 H (1.80-7.70) X 10*3/uL Monocytes # 1.02 H (0.20-1.00) X 10*3/uL BUN 6.8 L (9.0-27.0) mg/dL BUN/Creatinine Ratio 9.71 L (12.00-20.00) Ratio Total Protein 5.8 L (6.2-8.2) g/dL Albumin 3.4 L (3.8-4.9) g/dL Albumin/Globulin Ratio 1.42 L (1.60-3.17) Ratio Amylase 189 H (23-121) U/L Lipase 152 H (14-63) U/L Microbiology - Last 24 Hours (Table) 06/18/24 14:18 Blood Culture - Preliminary Blood Assessment and Plan (1) Pancreatitis Narrative/Plan: 29-year-old female with prior history of pancreatitis presented with abdominal pain elevated amylase and lipase and a CT of the abdomen pelvis consistent with pancreatitis. Patient admits to binge drinking the weekend prior to her symptoms. Also admits to binge drinking often within the last 1 year duration. Likely dealing with acute uncomplicated alcohol pancreatitis. No further workup indicated. Continue with symptomatic care. Discussed with patient importance of alcohol abstinence. Current Visit: Yes Status: Acute Code(s): K85.90 - ACUTE PANCREATITIS WITHOUT NECROSIS OR INFECTION, UNSP SNOMED Code(s): 00606226 Plan: 1. Continue symptomatic and supportive care 2. Continue low-fat diet 3. Antiemetics as needed 5. Protonix 40 mg daily for GI prophylaxis 6. Recommend alcohol abstinence 7. Encourage ambulation 8. No further workup is indicated for pancreatitis Thank you for this consultation, patient is cleared from gastroenterology for discharge. We will sign off at this time. Dr. Luis Alfredo Alvarez I agree with the dictator's note, documented as a scribe by Cheryl London.
[2024-06-22 09:58] LABS: ALT 33 U/L (8-44); AST 34 U/L (13-35); Albumin 3.8 g/dL (3.8-4.9); Albumin/Globulin Ratio 1.27 Ratio (1.60-3.17); Alkaline Phosphatase 136 U/L (41-126); Calcium 9.4 mg/dL (8.7-10.3); Carbon Dioxide 22.5 mmol/L (21.6-31.8); Chloride 105 mmol/L (96-109); Glucose 97 mg/dL (70-110); Potassium 4.1 mmol/L (3.5-5.5); Sodium 141 mmol/L (135-145); Total Bilirubin 0.9 mg/dL (0.3-1.2); Total Protein 6.8 g/dL (6.2-8.2)
[2024-06-22 12:24] VITALS: BP 151/95; PULSE 59; RESP 14; TEMP 98.2
[2024-06-22 13:17] VITALS: BMI 36.3
--- NOTE | 2024-06-22 13:23 | P.PN ---
Subjective Progress Note Date: 06/22/24 Principal diagnosis: Reason for follow-up is pancreatitis/leukocytosis question of sepsis Patient is a 29-year-old female with a past medical history significant for hypertension hypothyroidism kidney stone presenting to the hospital for evaluation of abdominal pain patient be diagnosed with alcoholic pancreatitis ultrasound of the gallbladder did not show any evidence of gallstone patient did have mild elevated white count with admitting concerning for possible sepsis related to the pancreatitis prompting this consultation. On today's evaluation that is 06/22/2024,the patient denies any fever or any chills, patient is breathing comfortably on room air, the patient denies chest pain shortness of breath and no significant cough, patient abdominal pain has decreased in intensity denies any nausea vomiting did have a bowel movement. Patient white count is 10.99 creatinine 0.9 Objective - Vital Signs Vital signs: Vital Signs Temp 98.2 F 06/22/24 12:10 Pulse 59 L 06/22/24 12:10 Resp 14 06/22/24 12:10 BP 151/95 06/22/24 12:10 Pulse Ox 99 06/22/24 12:10 FiO2 Intake & Output 06/21/24 06/22/24 06/22/24 18:59 06:59 18:59 Other: # Voids 2 6 # Bowel Movements 2 - Exam GENERAL DESCRIPTION: Middle-age female lying in bed in no distress RESPIRATORY SYSTEM: Unlabored breathing , decreased breath sounds at bases HEART: S1 S2 regular rate and rhythm , ABDOMEN: Soft , mild tenderness EXTREMITIES: No edema feet - Labs CBC & Chem 7: 06/22/24 04:54 06/22/24 04:54 Labs: Abnormal Lab Results - Last 24 Hours (Table) 06/22/24 06/22/24 Range/Units 04:54 04:54 WBC 10.99 H (4.50-10.00) X 10*3/uL RBC 3.74 L (4.10-5.20) X 10*6/uL MCV 108.3 H (80.0-97.0) FL MCH 37.4 H (27.0-32.0) pg Immature Gran # 0.13 H (0.00-0.04) X 10*3/uL Neutrophils # 7.91 H (1.80-7.70) X 10*3/uL Monocytes # 1.16 H (0.20-1.00) X 10*3/uL Anion Gap 13.50 H (4.00-12.00) mmol/L BUN 6.0 L (9.0-27.0) mg/dL BUN/Creatinine Ratio 10.00 L (12.00-20.00) Ratio Alkaline Phosphatase 136 H (41-126) U/L Albumin/Globulin Ratio 1.27 L (1.60-3.17) Ratio Amylase 151 H (23-121) U/L Lipase 174 H (14-63) U/L Microbiology - Last 24 Hours (Table) 06/18/24 14:18 Blood Culture - Preliminary Blood Assessment and Plan (1) Leukocytosis Current Visit: Yes Status: Acute Code(s): D72.829 - ELEVATED WHITE BLOOD CELL COUNT, UNSPECIFIED SNOMED Code(s): 755293678 (2) Acute alcoholic pancreatitis Current Visit: Yes Status: Acute Code(s): K85.20 - ALCOHOL INDUCED ACUTE PANCREATITIS WITHOUT NECROSIS OR INFCT SNOMED Code(s): 442667108 Plan: 1patient presented to hospital abdominal pain and this patient has been diagnosed with acute on chronic pancreatitis ultrasound did not show any evidence of gallstones CT did not show any evidence of necrotizing pancreatitis or any evidence of abscess or pseudocyst formation patient is not running any fever and no significant tachycardia or elevated white count not meeting criteria for SIRS/sepsis or infected necrosis clinically 2-patient remains to be afebrile and the patient white count is trending down also mention improving with abdominal pain, patient is currently covered with empiric Zosyn and monitor clinical course closely Dictation was produced using [employer] dictation software. please excuse any grammatical, word or spelling errors. Time with Patient: Less than 30
== END 2024-06-22 13:53 | disposition home or self-care (01) | DRG 282 ==
LOC: EC 07:20 → 5NMEDONC 10:51
PROVIDERS: ADMIT Internal Medicine; ATTEND Internal Medicine
DX: K85.20 Alcohol induced acute pancreatitis without necrosis or infection (principal); F41.9 Anxiety disorder, unspecified; F10.10 Alcohol abuse, uncomplicated; F32.A Depression, unspecified; I10 Essential (primary) hypertension; Z68.36 Body mass index [BMI] 36.0-36.9, adult; F17.210 Nicotine dependence, cigarettes, uncomplicated; E87.6 Hypokalemia; R00.0 Tachycardia, unspecified; R74.01 Elevation of levels of liver transaminase levels; F10.139 Alcohol abuse with withdrawal, unspecified; E66.9 Obesity, unspecified; E03.9 Hypothyroidism, unspecified; E86.0 Dehydration; Z79.890 Hormone replacement therapy; K59.00 Constipation, unspecified; Z87.442 Personal history of urinary calculi; Z71.41 Alcohol abuse counseling and surveillance of alcoholic
CPT/HCPCS: 36415; 71045; 74177; 76705; 80048; 80053; 80061; 80076; 81003; 82150; 83605; 83690; 83735; 84145; 84703; 85025; 86140; 87040; 93005; 96361; 96374; 96375; 96376; 99285

== ENCOUNTER 2024-08-03 12:39 | Emergency (ER) | payer OTHER ==
--- NOTE | 2024-08-03 12:52 | ED ---
Lower Extremity Injury HPI - General Chief Complaint: Extremity Injury, Lower Stated Complaint: Fall, left ankle injury Time Seen by Provider: 08/03/24 12:45 Source: patient, RN notes reviewed Mode of arrival: wheelchair Limitations: no limitations - History of Present Illness Initial Comments: This is a 29-year-old female who presents to the emergency department for a left ankle injury. Patient slipped when walking to the gas station yesterday and injured her left ankle. She has since been unable to bear weight. States that she broke this ankle when she was younger and is worried about breaking it again. Denies hitting her head. MD Complaint: ankle injury - Related Data Previous Rx's Medication Instructions Recorded Amoxic-Pot Clav 500-125 mg 1 tab PO Q12HR 4 Days #8 tab 06/22/24 [Augmentin 500-125 mg] Pantoprazole Sodium [Protonix] 40 mg PO DAILY 30 Days #30 tab 06/22/24 cloNIDine HCL [Catapres] 0.1 mg PO TID 30 Days #90 tab 06/22/24 HYDROcodone/APAP 5-325MG [Heiskell 1 tab PO Q6HR PRN 3 Days #12 tab 08/03/24 5-325] Ibuprofen [Motrin] 800 mg PO Q8H PRN #30 tab 08/03/24 Allergies Allergy/AdvReac Type Severity Reaction Status Date / Time No Known Allergies Allergy Verified 08/03/24 13:41 Review of Systems ROS Statement: Those systems with pertinent positive or pertinent negative responses have been documented in the HPI. ROS Other: All systems not noted in ROS Statement are negative. Past Medical History Past Medical History: Hypertension, Thyroid Disorder Additional Past Medical History / Comment(s): Hydradenitis suppertiva; Kidney stones History of Any Multi-Drug Resistant Organisms: None Reported Past Surgical History: No Surgical Hx Reported Additional Past Surgical History / Comment(s): cyst removed from buttocks two years ago, cystoscopy with right ureteroscopy and holmium laser lithotripsy on 09/19/2020 Past Anesthesia/Blood Transfusion Reactions: No Reported Reaction Past Psychological History: Anxiety, Depression Smoking Status: Current every day smoker, Heavy tobacco smoker Past Alcohol Use History: None Reported Past Drug Use History: Marijuana - Past Family History Mother Family Medical History: No Reported History General Exam Limitations: no limitations General appearance: alert, in no apparent distress Head exam: Present: atraumatic, normocephalic, normal inspection Respiratory exam: Present: normal lung sounds bilaterally. Absent: respiratory distress, wheezes, rales, rhonchi, stridor Cardiovascular Exam: Present: regular rate, normal rhythm, normal heart sounds. Absent: systolic murmur, diastolic murmur, rubs, gallop, clicks Extremities exam: Present: other (Tenderness and swelling over the left lateral malleolus. Range of motion limited by pain. 2+ DP and PT pulses) Neurological exam: Present: alert, oriented X3, CN II-XII intact Psychiatric exam: Present: normal affect, normal mood Course Vital Signs 08/03/24 13:38 Temperature 97.9 F Pulse Rate 85 Respiratory 18 Rate Blood Pressure 146/99 O2 Sat by Pulse 99 Oximetry Procedures - Orthopedic Splinting/Casting Injury #1 Side: left Lower Extremity Injury Location: ankle Lower Extremity Immobilizer: posterior splint, stirrup splint, fiberglass cast Other Orthopedic Equipment: crutches Medical Decision Making - Medical Decision Making This is a 29-year-old female who presents to the emergency department for a left ankle injury. Was pt. sent in by a medical professional or institution? @ -No Did you speak to anyone other than the patient for history? @ -No Did you review nursing and triage notes? @ -Yes, and I agree, it is accurate with regards to the patient's symptoms. Were old charts reviewed? @ -No Differential Diagnosis? @ -Differential Musculoskeletal Muscular strain, contusion, ligament sprain, fracture, arthritis, septic arthritis, bursitis, cellulitis, muscle spasm, nerve compression, DVT, arterial occlusion, herpes zoster, electrolyte abnormality, tumor.... This is not meant to be in all inclusive list EKG interpreted by me (3pts min.)? @ -Not obtained X-rays interpreted by me (1pt min.)? @ -X-ray of the left ankle obtained. My interpretation identifies a possible distal fibula fracture. CT interpreted by me (1pt min.)? @ -CT scan of the left ankle obtained. My interpretation identifies a left distal fibular fracture. U/S interpreted by me (1pt. min.)? @ -Not obtained What testing was considered but not performed? (CT, X-rays, U/S, labs)? Why? @ -None What meds were considered but not given? Why? @ -None Did you discuss the management of the patient with other professionals? @ -No Did you reconcile home meds? @ -No Was smoking cessation discussed for >3mins.? @ -No Was critical care preformed (if so, how long)? @ -No Were there social determinants of health that impacted care today? How? (Homelessness, low income, unemployed, alcoholism, drug addiction, transportation, low edu. Level, literacy, decrease access to med. care, senior care, rehab)? @ -No Was there de-escalation of care discussed even if they declined? (Discuss DNR or withdrawal of care, Hospice)? @ -No What co-morbidities impacted this encounter? (DM, HTN, Smoking, COPD, CAD, Cancer, CVA, Hep., AIDS, mental health diagnosis, sleep apnea, morbid obesity)? @ -None Was patient admitted / discharged? @ -Discharged. X-ray of the left ankle was first obtained. An occult fracture of the distal fibula was suspected and there was also a possible avulsion from the lateral midfoot. They advised a CT scan for better evaluation. CT scan of the left ankle was subsequently obtained. This demonstrated a transverse fracture of the fibula with 2 mm displacement. There is also a small bony fragment near the cuboid calcaneal articulation possibly representing avulsion fracture off the calcaneus. Findings reviewed with the patient. She was put in a posterior stirrup splint and given crutches. Prescription for ibuprofen and Heiskell provided. She was also given information for orthopedic follow-up and advised to contact them Tuesday morning for follow-up appointment. Patient discharged home in stable condition. Case discussed with ED attending Dr. Flood. Return precautions reviewed in depth, the patient is instructed to return to the emergency department with any new, worsening, or concerning symptoms. Patient verbalized understanding. Undiagnosed new problem with uncertain prognosis? @ -None Drug Therapy requiring intensive monitoring for toxicity (Heparin, Nitro, Insulin, Cardizem)? @ -None Were any procedures done? @ -Posterior stirrup splint application of the left lower extremity Diagnosis/symptom? @ -Fall, left fibular fracture Acute, or Chronic, or Acute on Chronic? @ -Acute Uncomplicated (without systemic symptoms) or Complicated (systemic symptoms)? @ -Uncomplicated Side effects of treatment? @ -None Exacerbation, Progression, or Severe Exacerbation] @ -Not applicable Poses a threat to life or bodily function? @ -Will limit her ability to ambulate for the meantime - Radiology Data Radiology results: report reviewed, image reviewed Disposition Clinical Impression: Closed fracture of left distal fibula, Avulsion fracture of calcaneus Disposition: HOME SELF-CARE Instructions (If sedation given, give patient instructions): Ankle Fracture (ED), Splint Care (ED) Additional Instructions: Return to the emergency department with any new, worsening, or concerning symptoms. Alternate with ibuprofen and Tylenol as needed for pain relief. Take the Heiskell sparingly when your pain is the most severe. Contact orthopedics as listed below first thing Tuesday morning for a follow-up appointment. Prescriptions: Ibuprofen [Motrin] 800 mg PO Q8H PRN #30 tab PRN Reason: Pain HYDROcodone/APAP 5-325MG [Heiskell 5-325] 1 tab PO Q6HR PRN 3 Days #12 tab PRN Reason: Pain Is patient prescribed a controlled substance at d/c from ED?: Yes When asked, does pt state using other controlled substances?: No If prescribed controlled substance>3 days was MAPS reviewed?: Prescribed <3 Days Referrals: Tiara Pollock MD [Primary Care Provider] - 1-2 days Amos Hassan DO [Doctor of Osteopathic Medicine] - 1-2 days Time of Disposition: 16:01
[2024-08-03 13:41] VITALS: BP 146/99; PULSE 85; RESP 18; TEMP 97.9
--- NOTE | 2024-08-03 14:22 | XR ---
EXAMINATION TYPE: XR ankle complete LT DATE OF EXAM: 08/03/2024 1:56 PM COMPARISON: None. CLINICAL INDICATION: Female, 29 years old with history of Fall, pain TECHNIQUE: 3 view(s) obtained. FINDINGS: Ankle mortise is intact. Soft tissue swelling is over the lateral malleolus. There is some lucency within the lateral malleolus on the AP projection would indicate an occult frac ture. This is not identified on additional projections. However, there are overlapping structures on the additional views. CT could further evaluate for fracture. There may be an avulsion from the lateral mid foot. No additional areas suspicious for fracture is evident. IMPRESSION: 1. Occult fracture of the distal fibula suspected. 2. Possible avulsion from the lateral midfoot. 3. Consider CT for additional workup. [facility], , 08/03/2024 2:20 PM
--- NOTE | 2024-08-03 15:19 | CT ---
EXAMINATION TYPE: CT ankle LT wo con DATE OF EXAM: 08/03/2024 3:09 PM COMPARISON: Plain film radiographs. CLINICAL INDICATION: Female, 29 years old with history of Fall, possible fx on x-ray; [facility], Fall, poss ible fx seen on x-ray. TECHNIQUE: Axial images were obtained of the CT ankle LT wo con, Additional coronal and sagittal refo rmatted images and soft tissue and bone window were obtained for review. 3-D reconstruction was creat ed on a separate workstation. Contrast used: mL of , (None if empty) Oral contrast used: (None if empty) CT DLP: 131.8 mGycm, Automated exposure control for dose reduction was used. FINDINGS: Acute transverse fracture of the distal fibula with 2 mm displacement and associated soft t issue swelling. Small bony fragment near the lateral calcaneus near its articulation with the cuboid. . Muscle volume and facet vasculature appear appropriate. IMPRESSION: 1. Acute transverse fracture of the fibula with 2 mm displacement. There is associated soft tissue s welling. 2. Small bony fragment near the cuboid calcaneal articulation possibly representing avulsion fractur e off the calcaneus. [facility], , 08/03/2024 3:17 PM
[2024-08-03] MEDS: KETOROLAC 15 MG/ML 1 ML VIAL IM STA (16:30)
[2024-08-03] MEDS: HYDROmorphone 1 MG/ML 1 ML SYRINGE IM STA (16:31)
== END 2024-08-03 16:40 | disposition home or self-care (01) ==
LOC: EC 12:39
DX: S82.832A Other fracture of upper and lower end of left fibula, initial encounter for closed fracture (principal); S92.032A Displaced avulsion fracture of tuberosity of left calcaneus, initial encounter for closed fracture; F17.290 Nicotine dependence, other tobacco product, uncomplicated; W01.0XXA Fall on same level from slipping, tripping and stumbling without subsequent striking against object, initial encounter
CPT/HCPCS: 99283; 29515; 73610; 73700; 96372; J1171; J1885

== ENCOUNTER 2024-08-05 07:38 | Emergency (ER) | payer OTHER ==
--- NOTE | 2024-08-05 07:59 | ED ---
Nausea/Vomiting/Diarrhea HPI - General Chief complaint: Nausea/Vomiting/Diarrhea Stated complaint: NV abd pain Time Seen by Provider: 08/05/24 07:57 Source: patient, RN notes reviewed Mode of arrival: wheelchair Limitations: no limitations - History of Present Illness Initial comments: Patient is a 29 year old female with a past medical history of alcoholic pancreatitis and kidney stones who presents for nausea, vomiting and abdominal pain x 1 day. She states that the pain started last night but progressively worsened this morning. She states that this feels like her previous episode of pancreatitis and rates her pain a 10/10. She states her last drink was 1 week ago, but does not know how much she drank on average before stopping. Her pain is slightly better with laying flat, and is radiating to her back. - Related Data Previous Rx's Medication Instructions Recorded Amoxic-Pot Clav 500-125 mg 1 tab PO Q12HR 4 Days #8 tab 06/22/24 [Augmentin 500-125 mg] Pantoprazole Sodium [Protonix] 40 mg PO DAILY 30 Days #30 tab 06/22/24 cloNIDine HCL [Catapres] 0.1 mg PO TID 30 Days #90 tab 06/22/24 HYDROcodone/APAP 5-325MG [[place] 1 tab PO Q6HR PRN 3 Days #12 tab 08/03/24 5-325] Ibuprofen [Motrin] 800 mg PO Q8H PRN #30 tab 08/03/24 Ketorolac [Toradol] 10 mg PO Q8HR #15 tab 08/05/24 Ondansetron Odt [Zofran Odt] 4 mg PO Q8HR PRN #10 tab 08/05/24 Allergies Allergy/AdvReac Type Severity Reaction Status Date / Time No Known Allergies Allergy Verified 08/05/24 07:43 Review of Systems ROS Statement: Those systems with pertinent positive or pertinent negative responses have been documented in the HPI. ROS Other: All systems not noted in ROS Statement are negative. Past Medical History Past Medical History: Hypertension, Thyroid Disorder Additional Past Medical History / Comment(s): Hydradenitis suppertiva; Kidney stones, PANCREATITIS History of Any Multi-Drug Resistant Organisms: None Reported Past Surgical History: No Surgical Hx Reported Additional Past Surgical History / Comment(s): cyst removed from buttocks two years ago, cystoscopy with right ureteroscopy and holmium laser lithotripsy on 09/19/2020 Past Anesthesia/Blood Transfusion Reactions: No Reported Reaction Past Psychological History: Anxiety, Depression Smoking Status: Current every day smoker, Heavy tobacco smoker Past Alcohol Use History: None Reported Past Drug Use History: Marijuana - Past Family History Mother Family Medical History: No Reported History General Exam Limitations: no limitations General appearance: alert, in distress Head exam: Present: atraumatic, normocephalic, normal inspection Respiratory exam: Present: normal lung sounds bilaterally. Absent: respiratory distress, wheezes, rales, rhonchi, stridor Cardiovascular Exam: Present: regular rate, normal rhythm, normal heart sounds. Absent: systolic murmur, diastolic murmur, rubs, gallop, clicks GI/Abdominal exam: Present: tenderness, guarding Neurological exam: Present: alert, oriented X3, CN II-XII intact Skin exam: Present: diaphoretic Course Vital Signs 08/05/24 08/05/24 08/05/24 07:41 08:45 09:50 Temperature 97.9 F 97.8 F 98.0 F Pulse Rate 85 60 63 Respiratory 18 20 16 Rate Blood Pressure 159/119 167/96 167/104 O2 Sat by Pulse 100 98 96 Oximetry 08/05/24 10:45 Temperature 97.9 F Pulse Rate 57 L Respiratory 20 Rate Blood Pressure 175/105 O2 Sat by Pulse 96 Oximetry Medical Decision Making - Medical Decision Making Was pt. sent in by a medical professional or institution (GABE Lugo, FUNERAL HOME ATTENDANT, urgent care, hospital, or care home...) When possible be specific @ -No Did you speak to anyone other than the patient for history (EMS, parent, family, police, friend...)? What history was obtained from this source @ -No Did you review nursing and triage notes (agree or disagree)? Why? @ -I reviewed and agree with nursing and triage notes Were old charts reviewed (outside hosp., previous admission, EMS record, old EKG, old radiological studies, urgent care reports/EKG's, care home records)? Report findings @ -No old charts were reviewed Differential Diagnosis (chest pain, altered mental status, abdominal pain women, abdominal pain men, vaginal bleeding, weakness, fever, dyspnea, syncope, headache, dizziness, GI bleed, back pain, seizure, CVA, palpatations, mental health, musculoskeletal)? @ -Differential Abdominal Pain Women: Appendicitis, Cholecystitis, diverticulosis, ischemic bowel, pancreatitis, hepatitis, UTI, gastroenteritis, AAA, incarcerated hernia, bowel obstruction, constipation, inflammatory bowel, hepatitis, peptic ulcer disease, splenic infarction, perforated viscus, vulvitis, ovarian torsion, PID, kidney stone, placenta abruption, this is not meant to be an all-inclusive list EKG interpreted by me (3pts min.). @ -[None X-rays interpreted by me (1pt min.). @ -None done CT interpreted by me (1pt min.). @ -None done U/S interpreted by me (1pt. min.). @ -None done What testing was considered but not performed or refused? (CT, X-rays, U/S, labs)? Why? @ -None What meds were considered but not given or refused? Why? @ -None Did you discuss the management of the patient with other professionals (professionals i.e. , PA, FUNERAL HOME ATTENDANT, lab, RT, psych nurse, social service technician, operations business partner, teacher, aoc airspace control officer, casework supervisor)? Give summary @ -No Was smoking cessation discussed for >3mins.? @ -No Was critical care preformed (if so, how long)? @ -No Were there social determinants of health that impacted care today? How? (Homelessness, low income, unemployed, alcoholism, drug addiction, transportation, low edu. Level, literacy, decrease access to med. care, [facility], rehab)? @ -No Was there de-escalation of care discussed even if they declined (Discuss DNR or withdrawal of care, Hospice)? DNR status @ -No What co-morbidities impacted this encounter? (DM, HTN, Smoking, COPD, CAD, Cancer, CVA, ARF, Chemo, Hep., AIDS, mental health diagnosis, sleep apnea, morbid obesity)? @ -None Was patient admitted / discharged? Hospital course, mention meds given and route, prescriptions, significant lab abnormalities, going to OR and other pertinent info. @ -Discharge patient is improved with IV fluids, antiemetics and analgesics. Patient may have underlying chronic pancreatitis no elevation of lipase at this time she does have mild alcoholic hepatitis she has had recent ultrasound and CT which were reviewed on prior visits. Patient will be discharged advised to follow-up with rehab return parens discussed. Undiagnosed new problem with uncertain prognosis? @ -No Drug Therapy requiring intensive monitoring for toxicity (Heparin, Nitro, Insulin, Cardizem)? @ -No Were any procedures done? @ -No Diagnosis/symptom? @ -Nausea vomiting, chronic abdominal pain Acute, or Chronic, or Acute on Chronic? @ -Acute Uncomplicated (without systemic symptoms) or Complicated (systemic symptoms)? @ -Complicated Side effects of treatment? @ -No Exacerbation, Progression, or Severe Exacerbation? @ -No Poses a threat to life or bodily function? How? (Chest pain, USA, MS, pneumonia, PE, COPD, DKA, ARF, appy, cholecystitis, CVA, Diverticulitis, Homicidal, Suicidal, threat to staff... and all critical care pts) @ -No - Lab Data Result diagrams: 08/05/24 08:07 08/05/24 08:07 Lab Results 08/05/24 08/05/24 08/05/24 Range/Units 08:07 08:07 08:07 WBC 7.4 (3.8-10.6) k/uL RBC 4.49 (3.80-5.40) m/uL Hgb 17.2 H (11.4-16.0) gm/dL Hct 48.3 H (34.0-46.0) % MCV 107.5 H (80.0-100.0) fL MCH 38.3 H (25.0-35.0) pg MCHC 35.6 (31.0-37.0) g/dL RDW 15.1 (11.5-15.5) % Plt Count 190 (150-450) k/uL MPV 8.0 Neutrophils % 75 % Lymphocytes % 15 % Monocytes % 6 % Eosinophils % 3 % Basophils % 0 % Neutrophils # 5.6 (1.3-7.7) k/uL Lymphocytes # 1.1 (1.0-4.8) k/uL Monocytes # 0.4 (0-1.0) k/uL Eosinophils # 0.2 (0-0.7) k/uL Basophils # 0.0 (0-0.2) k/uL Macrocytosis Moderate Sodium 139 (137-145) mmol/L Potassium 3.2 L (3.5-5.1) mmol/L Chloride 104 (98-107) mmol/L Carbon Dioxide 21 L (22-30) mmol/L Anion Gap 14 mmol/L BUN 10 (7-17) mg/dL Creatinine 0.75 (0.52-1.04) mg/dL Est GFR (CKD-EPI)AfAm >90 (>60 ml/min/1.73 sqM) Est GFR (CKD-EPI)NonAf >90 (>60 ml/min/1.73 sqM) Glucose 141 H (74-99) mg/dL Plasma Lactic Acid Kartik 1.7 (0.7-2.0) mmol/L Calcium 10.4 H (8.4-10.2) mg/dL Magnesium 1.6 (1.6-2.3) mg/dL Total Bilirubin 2.4 H (0.2-1.3) mg/dL AST 130 H (14-36) U/L ALT 93 H (4-34) U/L Alkaline Phosphatase 97 (38-126) U/L Total Protein 8.2 (6.3-8.2) g/dL Albumin 4.8 (3.5-5.0) g/dL Lipase 188 (23-300) U/L Urine Color Urine Appearance (Clear) Urine pH (5.0-8.0) Ur Specific [place] (1.001-1.035) Urine Protein (Negative) Urine Glucose (UA) (Negative) Urine Ketones (Negative) Urine Blood (Negative) Urine Nitrite (Negative) Urine Bilirubin (Negative) Urine Urobilinogen (<2.0) mg/dL Ur Leukocyte Esterase (Negative) Urine RBC (0-5) /hpf Urine WBC (0-5) /hpf Ur Squamous Epith Cells (0-4) /hpf Calcium Oxalate Crystal (None) /hpf Hyaline Casts (0-2) /lpf Urine Mucus (None) /hpf Urine HCG, Qual (Not Detectd) Serum Alcohol <10 mg/dL 08/05/24 08/05/24 Range/Units 08:38 08:38 WBC (3.8-10.6) k/uL RBC (3.80-5.40) m/uL Hgb (11.4-16.0) gm/dL Hct (34.0-46.0) % MCV (80.0-100.0) fL MCH (25.0-35.0) pg MCHC (31.0-37.0) g/dL RDW (11.5-15.5) % Plt Count (150-450) k/uL MPV Neutrophils % % Lymphocytes % % Monocytes % % Eosinophils % % Basophils % % Neutrophils # (1.3-7.7) k/uL Lymphocytes # (1.0-4.8) k/uL Monocytes # (0-1.0) k/uL Eosinophils # (0-0.7) k/uL Basophils # (0-0.2) k/uL Macrocytosis Sodium (137-145) mmol/L Potassium (3.5-5.1) mmol/L Chloride (98-107) mmol/L Carbon Dioxide (22-30) mmol/L Anion Gap mmol/L BUN (7-17) mg/dL Creatinine (0.52-1.04) mg/dL Est GFR (CKD-EPI)AfAm (>60 ml/min/1.73 sqM) Est GFR (CKD-EPI)NonAf (>60 ml/min/1.73 sqM) Glucose (74-99) mg/dL Plasma Lactic Acid Kartik (0.7-2.0) mmol/L Calcium (8.4-10.2) mg/dL Magnesium (1.6-2.3) mg/dL Total Bilirubin (0.2-1.3) mg/dL AST (14-36) U/L ALT (4-34) U/L Alkaline Phosphatase (38-126) U/L Total Protein (6.3-8.2) g/dL Albumin (3.5-5.0) g/dL Lipase (23-300) U/L Urine Color Dark Brown Urine Appearance Turbid H (Clear) Urine pH 6.5 (5.0-8.0) Ur Specific [place] 1.041 H (1.001-1.035) Urine Protein 3+ H (Negative) Urine Glucose (UA) Trace H (Negative) Urine Ketones 3+ H (Negative) Urine Blood Negative (Negative) Urine Nitrite Negative (Negative) Urine Bilirubin 1+ H (Negative) Urine Urobilinogen 4.0 (<2.0) mg/dL Ur Leukocyte Esterase Large H (Negative) Urine RBC 5 (0-5) /hpf Urine WBC 15 H (0-5) /hpf Ur Squamous Epith Cells 50 H (0-4) /hpf Calcium Oxalate Crystal Few H (None) /hpf Hyaline Casts 5 H (0-2) /lpf Urine Mucus Many H (None) /hpf Urine HCG, Qual Not Detected (Not Detectd) Serum Alcohol mg/dL Disposition Clinical Impression: Abdominal pain, Nausea & vomiting, Alcoholic hepatitis Disposition: HOME SELF-CARE Condition: Stable Instructions (If sedation given, give patient instructions): Abdominal Pain (ED) Additional Instructions: Please return to the Emergency Department if symptoms worsen or any other concerns. Prescriptions: Ketorolac [Toradol] 10 mg PO Q8HR #15 tab Ondansetron Odt [Zofran Odt] 4 mg PO Q8HR PRN #10 tab PRN Reason: Nausea Is patient prescribed a controlled substance at d/c from ED?: No Referrals: None,Stated [REFERRING] - 1-2 days Time of Disposition: 10:39
[2024-08-05] MEDS: droPERidol 5 MG/2 ML VIAL IVP ONE ×2 (08:13→09:54)
[2024-08-05] MEDS: SODIUM CHLORIDE 0.9% 2,000 ML IV STA (08:13)
[2024-08-05 08:17] LABS: Basophils % (A) 0 %; Eosinophils # (A) 0.2 k/uL (0-0.7); Eosinophils % (A) 3 %; HCT 48.3 % (34.0-46.0); HGB 17.2 gm/dL (11.4-16.0); Lymphocytes # (A) 1.1 k/uL (1.0-4.8); Lymphocytes % (A) 15 %; MCH 38.3 pg (25.0-35.0); MCHC 35.6 g/dL (31.0-37.0); MCV 107.5 fL (80.0-100.0); Macrocytosis Moderate; Monocytes # (A) 0.4 k/uL (0-1.0); Monocytes % (A) 6 %; Neutrophils # (A) 5.6 k/uL (1.3-7.7); Neutrophils % (A) 75 %; Platelet Count 190 k/uL (150-450); RBC 4.49 m/uL (3.80-5.40); RDW 15.1 % (11.5-15.5); WBC 7.4 k/uL (3.8-10.6)
[2024-08-05 08:29] LABS: ALT 93 U/L (4-34); AST 130 U/L (14-36); African American GFR (CKD) >90 (>60 ml/min/1.73 sqM); Albumin 4.8 g/dL (3.5-5.0); Alcohol <10 mg/dL; Alkaline Phosphatase 97 U/L (38-126); Anion Gap 14 mmol/L; Blood Urea Nitrogen 10 mg/dL (7-17); Calcium 10.4 mg/dL (8.4-10.2); Carbon Dioxide 21 mmol/L (22-30); Chloride 104 mmol/L (98-107); Glucose 141 mg/dL (74-99); Lipase 188 U/L (23-300); Magnesium 1.6 mg/dL (1.6-2.3); Non-African American GFR(CKD) >90 (>60 ml/min/1.73 sqM); Potassium 3.2 mmol/L (3.5-5.1); Sodium 139 mmol/L (137-145); Total Bilirubin 2.4 mg/dL (0.2-1.3); Total Protein 8.2 g/dL (6.3-8.2)
[2024-08-05] MEDS: KETOROLAC 15 MG/ML 1 ML VIAL IVP STA ×2 (08:45→09:53)
[2024-08-05] MEDS: HYDROmorphone 1 MG/ML 1 ML SYRINGE IVP STA (08:47)
[2024-08-05 09:21] LABS: Appearance,Urine Turbid (Clear); Bilirubin,Urine 1+ (Negative); Blood,Urine Negative (Negative); Calcium Oxalate Crystals,Urine Few /hpf; Color,Urine Dark Brown; Glucose,Urine (UA) Trace (Negative); Hyaline Casts,Urine 5 /lpf (0-2); Ketones,Urine 3+ (Negative); Leukocyte Esterase,Urine Large (Negative); Mucus,Urine Many /hpf; Nitrite,Urine Negative (Negative); PH, Urine 6.5 (5.0-8.0); Protein,Urine 3+ (Negative); RBC,Urine 5 /hpf (0-5); Specific Gravity,Urine 1.041 (1.001-1.035); Squamous Epithelial Cell,Urine 50 /hpf (0-4); WBC,Urine 15 /hpf (0-5)
[2024-08-05 10:45] VITALS: BP 175/105; PULSE 57; RESP 20; TEMP 97.9
[2024-08-05] MEDS: ACET/COD 300 MG/30 MG STARTER PACK 6 TAB BTL PO STA (10:47)
== END 2024-08-05 10:53 | disposition home or self-care (01) ==
LOC: EC 07:38 → SUPCPDRO 07:38 → EC 10:53
DX: K70.10 Alcoholic hepatitis without ascites (principal); F17.200 Nicotine dependence, unspecified, uncomplicated
CPT/HCPCS: 36415; 80053; 83605; 83690; 83735; 85025; 81001; 81025; 99284; 96374; 96375; 96376; 96361; G0480; J1171; J1885; J1790; 80320

== ENCOUNTER 2024-08-09 13:20 | Emergency (ER) | payer OTHER ==
[2024-08-09] MEDS: SODIUM CHLORIDE 0.9% 1,000 ML IV STA (14:13)
[2024-08-09] MEDS: HYDROmorphone 1 MG/ML 1 ML SYRINGE IVP STA ×2 (14:13→15:29)
[2024-08-09] MEDS: ONDANSETRON 4 MG/2 ML VIAL IVP STA (14:15)
[2024-08-09 14:17] LABS: Basophils % (A) 0 %; Eosinophils # (A) 0.1 k/uL (0-0.7); Eosinophils % (A) 2 %; HCT 48.2 % (34.0-46.0); HGB 17.5 gm/dL (11.4-16.0); Hyperchromasia Slight; Lymphocytes # (A) 0.7 k/uL (1.0-4.8); Lymphocytes % (A) 9 %; MCH 38.5 pg (25.0-35.0); MCHC 36.3 g/dL (31.0-37.0); MCV 105.8 fL (80.0-100.0); Macrocytosis Moderate; Mean Platelet Volume 8.5; Monocytes # (A) 0.3 k/uL (0-1.0); Monocytes % (A) 4 %; Neutrophils # (A) 6.7 k/uL (1.3-7.7); Neutrophils % (A) 84 %; Platelet Count 177 k/uL (150-450); RBC 4.56 m/uL (3.80-5.40); RDW 15.5 % (11.5-15.5)
[2024-08-09] MEDS: METOCLOPRAMIDE 5 MG/ML 2 ML VIAL IVP STA (14:17)
[2024-08-09] MEDS: KETOROLAC 15 MG/ML 1 ML VIAL IVP STA ×2 (14:20→16:44)
--- NOTE | 2024-08-09 14:22 | ED ---
Abdominal Pain HPI - General Chief Complaint: Abdominal Pain Stated Complaint: NVD Time Seen by Provider: 08/09/24 13:26 Source: patient, RN notes reviewed Mode of arrival: EMS Limitations: no limitations - History of Present Illness Initial Comments: This is a 29-year-old female who presents to the emergency department for abdominal pain, nausea, and vomiting. States that she has been dealing with this on and off for weeks, however this episode got severe yesterday. Pain is in the center of the abdomen with radiation into the back. States that she is largely vomiting bile. She has a history of alcoholic pancreatitis and kidney stones, and states that symptoms feel like it could be related to either of those. Denies any changes in bowel or bladder habits. She was here for the same symptoms on 08/05. MD Complaint: abdominal pain - Related Data Previous Rx's Medication Instructions Recorded Amoxic-Pot Clav 500-125 mg 1 tab PO Q12HR 4 Days #8 tab 06/22/24 [Augmentin 500-125 mg] Pantoprazole Sodium [Protonix] 40 mg PO DAILY 30 Days #30 tab 06/22/24 cloNIDine HCL [Catapres] 0.1 mg PO TID 30 Days #90 tab 06/22/24 HYDROcodone/APAP 5-325MG [[place] 1 tab PO Q6HR PRN 3 Days #12 tab 08/03/24 5-325] Ibuprofen [Motrin] 800 mg PO Q8H PRN #30 tab 08/03/24 Ketorolac [Toradol] 10 mg PO Q8HR #15 tab 08/05/24 Ondansetron Odt [Zofran Odt] 4 mg PO Q8HR PRN #10 tab 08/05/24 Celecoxib 200 mg PO BID PRN #20 cap 08/09/24 Promethazine [Phenergan] 25 mg PO Q6HR PRN #20 tablet 08/09/24 Allergies Allergy/AdvReac Type Severity Reaction Status Date / Time No Known Allergies Allergy Verified 08/09/24 13:53 Review of Systems ROS Statement: Those systems with pertinent positive or pertinent negative responses have been documented in the HPI. ROS Other: All systems not noted in ROS Statement are negative. Past Medical History Past Medical History: Hypertension, Thyroid Disorder Additional Past Medical History / Comment(s): Hydradenitis suppertiva; Kidney stones, PANCREATITIS History of Any Multi-Drug Resistant Organisms: None Reported Past Surgical History: No Surgical Hx Reported Additional Past Surgical History / Comment(s): cyst removed from buttocks two years ago, cystoscopy with right ureteroscopy and holmium laser lithotripsy on 09/19/2020 Past Anesthesia/Blood Transfusion Reactions: No Reported Reaction Past Psychological History: Anxiety, Depression Smoking Status: Current every day smoker, Heavy tobacco smoker Past Alcohol Use History: None Reported Past Drug Use History: Marijuana - Past Family History Mother Family Medical History: No Reported History General Exam Limitations: no limitations General appearance: alert, in distress Head exam: Present: atraumatic, normocephalic, normal inspection Respiratory exam: Present: normal lung sounds bilaterally. Absent: respiratory distress, wheezes, rales, rhonchi, stridor Cardiovascular Exam: Present: regular rate, normal rhythm, normal heart sounds. Absent: systolic murmur, diastolic murmur, rubs, gallop, clicks GI/Abdominal exam: Present: soft, tenderness (diffuse), normal bowel sounds. Ab sent: distended Neurological exam: Present: alert, oriented X3, CN II-XII intact Psychiatric exam: Present: normal affect, normal mood Skin exam: Present: warm, dry, intact, normal color. Absent: rash Course Vital Signs 08/09/24 08/09/24 08/09/24 13:50 15:24 16:41 Temperature 97.6 F 97.6 F Pulse Rate 51 L 55 L 58 L Respiratory 20 16 20 Rate Blood Pressure 152/74 185/105 173/135 O2 Sat by Pulse 99 96 100 Oximetry Medical Decision Making - Medical Decision Making This is a 29 year old female who presents to the emergency department for abdominal pain, nausea, and vomiting. Was pt. sent in by a medical professional or institution? @ -No Did you speak to anyone other than the patient for history? @ -No Did you review nursing and triage notes? @ -Yes, and I agree, it is accurate with regards to the patient's symptoms. Were old charts reviewed? @ -No Differential Diagnosis? @ -Differential Abdominal Pain Women: Appendicitis, Cholecystitis, diverticulosis, ischemic bowel, pancreatitis, hepatitis, UTI, gastroenteritis, AAA, incarcerated hernia, bowel obstruction, constipation, inflammatory bowel, hepatitis, peptic ulcer disease, splenic infarction, perforated viscus, vulvitis, ovarian torsion, PID, kidney stone, placenta abruption, this is not meant to be an all-inclusive list EKG interpreted by me (3pts min.)? @ -Not obtained X-rays interpreted by me (1pt min.)? @ -Not obtained CT interpreted by me (1pt min.)? @ -Not obtained U/S interpreted by me (1pt. min.)? @ -Gallbladder ultrasound obtained. My interpretation identifies no evidence of cholelithiasis. What testing was considered but not performed? (CT, X-rays, U/S, labs)? Why? @ -None What meds were considered but not given? Why? @ -None Did you discuss the management of the patient with other professionals? @ -No Did you reconcile home meds? @ -No Was smoking cessation discussed for >3mins.? @ -No Was critical care preformed (if so, how long)? @ -No Were there social determinants of health that impacted care today? How? (Homelessness, low income, unemployed, alcoholism, drug addiction, transportation, low edu. Level, literacy, decrease access to med. care, retirement, rehab)? @ -No Was there de-escalation of care discussed even if they declined? (Discuss DNR or withdrawal of care, Hospice)? @ -No What co-morbidities impacted this encounter? (DM, HTN, Smoking, COPD, CAD, Cancer, CVA, Hep., AIDS, mental health diagnosis, sleep apnea, morbid obesity)? @ -Alcohol use Was patient admitted / discharged? @ -Discharged. Lab work demonstrates mild transaminitis likely related to alcoholism. It was otherwise relatively unremarkable. She continued to be symptomatic and we proceeded with a gallbladder ultrasound which revealed no acute process. We were able to get her symptoms to a somewhat tolerable level. Discussed that she could be observed overnight if needed for intractable symptoms, but states that she would rather go home. She does have Zofran available if needed. Phenergan was prescribed as well to see if that offers further benefit to the nausea. She inquired about pain medication. She is already on [place] for the fracture in her leg. Celebrex prescribed for pain control. Advised follow-up with her PCP for reevaluation. Patient discharged home in stable condition. Case discussed with ED attending Dr. Macias. Return precautions reviewed in depth, the patient is instructed to return to the emergency department with any new, worsening, or concerning symptoms. Patient verbalized understanding. Undiagnosed new problem with uncertain prognosis? @ -None Drug Therapy requiring intensive monitoring for toxicity (Heparin, Nitro, Insulin, Cardizem)? @ -None Were any procedures done? @ -None Diagnosis/symptom? @ -Abdominal pain, nausea and vomiting Acute, or Chronic, or Acute on Chronic? @ -Acute Uncomplicated (without systemic symptoms) or Complicated (systemic symptoms)? @ -Uncomplicated Side effects of treatment? @ -None Exacerbation, Progression, or Severe Exacerbation] @ -Not applicable Poses a threat to life or bodily function? @ -No - Lab Data Result diagrams: 08/09/24 14:07 08/09/24 14:07 Lab Results 08/09/24 08/09/24 08/09/24 Range/Units 14:07 14:07 14:07 WBC 8.0 (3.8-10.6) k/uL RBC 4.56 (3.80-5.40) m/uL Hgb 17.5 H (11.4-16.0) gm/dL Hct 48.2 H (34.0-46.0) % MCV 105.8 H (80.0-100.0) fL MCH 38.5 H (25.0-35.0) pg MCHC 36.3 (31.0-37.0) g/dL RDW 15.5 (11.5-15.5) % Plt Count 177 (150-450) k/uL MPV 8.5 Neutrophils % 84 % Lymphocytes % 9 % Monocytes % 4 % Eosinophils % 2 % Basophils % 0 % Neutrophils # 6.7 (1.3-7.7) k/uL Lymphocytes # 0.7 L (1.0-4.8) k/uL Monocytes # 0.3 (0-1.0) k/uL Eosinophils # 0.1 (0-0.7) k/uL Basophils # 0.0 (0-0.2) k/uL Hyperchromasia Slight Macrocytosis Moderate Sodium 140 (137-145) mmol/L Potassium 3.4 L (3.5-5.1) mmol/L Chloride 103 (98-107) mmol/L Carbon Dioxide 25 (22-30) mmol/L Anion Gap 12 mmol/L BUN 12 (7-17) mg/dL Creatinine 0.75 (0.52-1.04) mg/dL Est GFR (CKD-EPI)AfAm >90 (>60 ml/min/1.73 sqM) Est GFR (CKD-EPI)NonAf >90 (>60 ml/min/1.73 sqM) Glucose 120 H (74-99) mg/dL Plasma Lactic Acid Kartik 1.8 (0.7-2.0) mmol/L Calcium 10.2 (8.4-10.2) mg/dL Magnesium 1.7 (1.6-2.3) mg/dL Total Bilirubin 1.6 H (0.2-1.3) mg/dL AST 203 H (14-36) U/L ALT 151 H (4-34) U/L Alkaline Phosphatase 76 (38-126) U/L Total Protein 7.9 (6.3-8.2) g/dL Albumin 4.9 (3.5-5.0) g/dL Amylase 88 (30-110) U/L Lipase 89 (23-300) U/L HCG, Qual Not Detected Urine Color Urine Appearance (Clear) Urine pH (5.0-8.0) Ur Specific [place] (1.001-1.035) Urine Protein (Negative) Urine Glucose (UA) (Negative) Urine Ketones (Negative) Urine Blood (Negative) Urine Nitrite (Negative) Urine Bilirubin (Negative) Urine Urobilinogen (<2.0) mg/dL Ur Leukocyte Esterase (Negative) Urine RBC (0-5) /hpf Urine WBC (0-5) /hpf Ur Squamous Epith Cells (0-4) /hpf Urine Mucus (None) /hpf Serum Alcohol <10 mg/dL 08/09/24 Range/Units 15:00 WBC (3.8-10.6) k/uL RBC (3.80-5.40) m/uL Hgb (11.4-16.0) gm/dL Hct (34.0-46.0) % MCV (80.0-100.0) fL MCH (25.0-35.0) pg MCHC (31.0-37.0) g/dL RDW (11.5-15.5) % Plt Count (150-450) k/uL MPV Neutrophils % % Lymphocytes % % Monocytes % % Eosinophils % % Basophils % % Neutrophils # (1.3-7.7) k/uL Lymphocytes # (1.0-4.8) k/uL Monocytes # (0-1.0) k/uL Eosinophils # (0-0.7) k/uL Basophils # (0-0.2) k/uL Hyperchromasia Macrocytosis Sodium (137-145) mmol/L Potassium (3.5-5.1) mmol/L Chloride (98-107) mmol/L Carbon Dioxide (22-30) mmol/L Anion Gap mmol/L BUN (7-17) mg/dL Creatinine (0.52-1.04) mg/dL Est GFR (CKD-EPI)AfAm (>60 ml/min/1.73 sqM) Est GFR (CKD-EPI)NonAf (>60 ml/min/1.73 sqM) Glucose (74-99) mg/dL Plasma Lactic Acid Kartik (0.7-2.0) mmol/L Calcium (8.4-10.2) mg/dL Magnesium (1.6-2.3) mg/dL Total Bilirubin (0.2-1.3) mg/dL AST (14-36) U/L ALT (4-34) U/L Alkaline Phosphatase (38-126) U/L Total Protein (6.3-8.2) g/dL Albumin (3.5-5.0) g/dL Amylase (30-110) U/L Lipase (23-300) U/L HCG, Qual Urine Color Dark Brown Urine Appearance Cloudy H (Clear) Urine pH 7.0 (5.0-8.0) Ur Specific [place] 1.039 H (1.001-1.035) Urine Protein 1+ H (Negative) Urine Glucose (UA) Negative (Negative) Urine Ketones 3+ H (Negative) Urine Blood Negative (Negative) Urine Nitrite Negative (Negative) Urine Bilirubin 1+ H (Negative) Urine Urobilinogen 4.0 (<2.0) mg/dL Ur Leukocyte Esterase Large H (Negative) Urine RBC 1 (0-5) /hpf Urine WBC 8 H (0-5) /hpf Ur Squamous Epith Cells 10 H (0-4) /hpf Urine Mucus Many H (None) /hpf Serum Alcohol mg/dL - Radiology Data Radiology results: report reviewed, image reviewed Disposition Clinical Impression: Abdominal pain, Nausea and vomiting Disposition: HOME SELF-CARE Instructions (If sedation given, give patient instructions): Abdominal Pain (ED) Additional Instructions: Return to the emergency department with any new, worsening, or concerning symptoms. Try taking the Celebrex twice daily as needed for pain relief. You may also take this with Tylenol. Take the Phenergan up to every 6 hours as needed for nausea and vomiting. Follow up with your primary care provider in 1- 2 days. Prescriptions: Celecoxib 200 mg PO BID PRN #20 cap PRN Reason: Pain Promethazine [Phenergan] 25 mg PO Q6HR PRN #20 tablet PRN Reason: Nausea And Vomiting Is patient prescribed a controlled substance at d/c from ED?: No Referrals: Tiara Pollock MD [Primary Care Provider] - 1-2 days Time of Disposition: 17:16
[2024-08-09 14:28] LABS: ALT 151 U/L (4-34); AST 203 U/L (14-36); African American GFR (CKD) >90 (>60 ml/min/1.73 sqM); Albumin 4.9 g/dL (3.5-5.0); Alcohol <10 mg/dL; Alkaline Phosphatase 76 U/L (38-126); Amylase 88 U/L (30-110); Anion Gap 12 mmol/L; Blood Urea Nitrogen 12 mg/dL (7-17); Calcium 10.2 mg/dL (8.4-10.2); Carbon Dioxide 25 mmol/L (22-30); Chloride 103 mmol/L (98-107); Glucose 120 mg/dL (74-99); Lipase 89 U/L (23-300); Magnesium 1.7 mg/dL (1.6-2.3); Non-African American GFR(CKD) >90 (>60 ml/min/1.73 sqM); Potassium 3.4 mmol/L (3.5-5.1); Sodium 140 mmol/L (137-145); Total Bilirubin 1.6 mg/dL (0.2-1.3); Total Protein 7.9 g/dL (6.3-8.2)
[2024-08-09 14:33] LABS: HCG,Qualitative Serum Not Detected
--- NOTE | 2024-08-09 15:28 | US ---
EXAMINATION TYPE: US gallbladder DATE OF EXAM: 08/09/2024 COMPARISON: US and CT 2023 CLINICAL INDICATION: Female, 29 years old with history of Elevated LFTs, abdominal pain; TECHNIQUE: Grayscale and color Doppler imaging of the right upper quadrant was performed. FINDINGS: EXAM MEASUREMENTS: Liver Length: 19.5 cm Gallbladder Wall: 0.2 cm CBD: 0.4 cm Right Kidney: 10.9 x 4.4 x 4.9 cm Pancreas: visualized portions wnl, limited by overlying midline bowel gas Liver: enlarged, attenuating Gallbladder: wnl Evidence for sonographic Hanks's sign: no CBD: visualized portions wnl, limited by overlying bowel gas Right Kidney: wnl Persistent hepatomegaly. Persistent heterogeneous hyperechoic appearance of liver. Evaluation for foc al masses suboptimal due to the heterogeneity. No focal ascites. IMPRESSION: Persistent hepatomegaly and diffuse underlying fatty hepatocellular disease. No gallstones or acute f indings identified. [facility], , 08/09/2024 3:25 PM
[2024-08-09 15:58] LABS: Appearance,Urine Cloudy (Clear); Bilirubin,Urine 1+ (Negative); Blood,Urine Negative (Negative); Color,Urine Dark Brown; Glucose,Urine (UA) Negative (Negative); Ketones,Urine 3+ (Negative); Leukocyte Esterase,Urine Large (Negative); Mucus,Urine Many /hpf; Nitrite,Urine Negative (Negative); Protein,Urine 1+ (Negative); RBC,Urine 1 /hpf (0-5); Specific Gravity,Urine 1.039 (1.001-1.035); Squamous Epithelial Cell,Urine 10 /hpf (0-4); WBC,Urine 8 /hpf (0-5)
[2024-08-09] MEDS: PROCHLORPERAZINE INJ 10 MG/2 ML VIAL IVP STA (16:42)
[2024-08-09] MEDS: HYDROmorphone 0.5 MG/0.5 ML SYRINGE IVP STA (16:45)
[2024-08-09] MEDS: LORazepam 2 MG/ML INJ IV STA (16:47)
[2024-08-09] MEDS: traMADol 50 MG STARTER PACK 3 TAB BTL PO STA (17:55)
[2024-08-09 18:00] VITALS: BP 135/97; PULSE 72; RESP 18; TEMP 97.9
== END 2024-08-09 18:03 | disposition home or self-care (01) ==
LOC: EC 13:20
DX: R10.9 Unspecified abdominal pain (principal); R11.2 Nausea with vomiting, unspecified; F17.200 Nicotine dependence, unspecified, uncomplicated; F10.90 Alcohol use, unspecified, uncomplicated; Y90.0 Blood alcohol level of less than 20 mg/100 ml
CPT/HCPCS: 36415; 80053; 82150; 83605; 83690; 83735; 85025; 81001; 84703; 76705; 99285; 96374; 96375; 96376; 96361; G0480; J2060; J0780; J2765; J2405; J1171 ×2; J1885; 80320

== ENCOUNTER 2024-09-30 08:48 | Emergency (ER) | payer OTHER ==
[2024-09-30 08:54] VITALS: RESP 18
--- NOTE | 2024-09-30 09:02 | ED ---
Abdominal Pain HPI - General Chief Complaint: Abdominal Pain Stated Complaint: Abd pain Time Seen by Provider: 09/30/24 08:50 Source: patient, RN notes reviewed Mode of arrival: EMS Limitations: no limitations - History of Present Illness Initial Comments: This is a 29-year-old female who presents to the emergency department for abdominal pain. Patient reports upper abdominal pain that woke her up around midnight. States that it seems to wrap around to her back. She has associated nausea and vomiting. States that this feels like the last time she had pancreatitis. She does admit to some alcohol consumption last night, which was the cause of the pancreatitis when she last had it. Denies any diarrhea or constipation. MD Complaint: abdominal pain - Related Data Previous Rx's Medication Instructions Recorded Amoxic-Pot Clav 500-125 mg 1 tab PO Q12HR 4 Days #8 tab 06/22/24 [Augmentin 500-125 mg] Pantoprazole Sodium [Protonix] 40 mg PO DAILY 30 Days #30 tab 06/22/24 cloNIDine HCL [Catapres] 0.1 mg PO TID 30 Days #90 tab 06/22/24 HYDROcodone/APAP 5-325MG [[place] 1 tab PO Q6HR PRN 3 Days #12 tab 08/03/24 5-325] Ibuprofen [Motrin] 800 mg PO Q8H PRN #30 tab 08/03/24 Ketorolac [Toradol] 10 mg PO Q8HR #15 tab 08/05/24 Ondansetron Odt [Zofran Odt] 4 mg PO Q8HR PRN #10 tab 08/05/24 Celecoxib 200 mg PO BID PRN #20 cap 08/09/24 HYDROcodone/APAP 5-325MG [[place] 1 tab PO Q6HR PRN 3 Days #12 tab 09/30/24 5-325] Ondansetron Odt [Zofran Odt] 4 mg PO Q8HR PRN #15 tab 09/30/24 Pantoprazole Sodium 40 mg PO DAILY 14 Days #14 tab 09/30/24 Promethazine [Phenergan] 25 mg PO Q6HR PRN #20 tablet 09/30/24 Allergies Allergy/AdvReac Type Severity Reaction Status Date / Time No Known Allergies Allergy Verified 08/09/24 13:53 Review of Systems ROS Statement: Those systems with pertinent positive or pertinent negative responses have been documented in the HPI. ROS Other: All systems not noted in ROS Statement are negative. Past Medical History Past Medical History: Hypertension, Thyroid Disorder Additional Past Medical History / Comment(s): Hydradenitis suppertiva; Kidney stones, PANCREATITIS History of Any Multi-Drug Resistant Organisms: None Reported Past Surgical History: No Surgical Hx Reported Additional Past Surgical History / Comment(s): cyst removed from buttocks two years ago, cystoscopy with right ureteroscopy and holmium laser lithotripsy on 09/19/2020 Past Anesthesia/Blood Transfusion Reactions: No Reported Reaction Past Psychological History: Anxiety, Depression Smoking Status: Current every day smoker, Heavy tobacco smoker Past Alcohol Use History: Occasional Past Drug Use History: Marijuana - Past Family History Mother Family Medical History: No Reported History General Exam Limitations: no limitations General appearance: alert, in distress Head exam: Present: atraumatic, normocephalic, normal inspection Respiratory exam: Present: normal lung sounds bilaterally. Absent: respiratory distress, wheezes, rales, rhonchi, stridor Cardiovascular Exam: Present: regular rate, normal rhythm GI/Abdominal exam: Present: soft, tenderness (Epigastric), normal bowel sounds. Absent: distended Neurological exam: Present: alert, oriented X3, CN II-XII intact Psychiatric exam: Present: normal affect, normal mood Skin exam: Present: warm, dry, intact, normal color. Absent: rash Course Vital Signs 09/30/24 09/30/24 09/30/24 08:50 09:03 10:59 Temperature 97.8 F Pulse Rate 67 71 62 Respiratory 18 18 18 Rate Blood Pressure 160/128 148/106 128/83 O2 Sat by Pulse 99 99 100 Oximetry 09/30/24 13:12 Temperature 98.2 F Pulse Rate 64 Respiratory 18 Rate Blood Pressure 141/95 O2 Sat by Pulse 99 Oximetry Medical Decision Making - Medical Decision Making This is a 29-year-old female who presents to the emergency department for abdominal pain. Was pt. sent in by a medical professional or institution? @ -No Did you speak to anyone other than the patient for history? @ -No Did you review nursing and triage notes? @ -Yes, and I agree, it is accurate with regards to the patient's symptoms. Were old charts reviewed? @ -No Differential Diagnosis? @ -Differential Abdominal Pain Women: Appendicitis, Cholecystitis, diverticulosis, ischemic bowel, pancreatitis, hepatitis, UTI, gastroenteritis, AAA, incarcerated hernia, bowel obstruction, constipation, inflammatory bowel, hepatitis, peptic ulcer disease, splenic infarction, perforated viscus, vulvitis, ovarian torsion, PID, kidney stone, placenta abruption, this is not meant to be an all-inclusive list EKG interpreted by me (3pts min.)? @ -EKG interpreted by me demonstrating the following: Sinus rhythm. Ventricular rate 68 bpm, IL interval 153 ms, QRS duration 97 ms, QTc 413 ms. X-rays interpreted by me (1pt min.)? @ -Not obtained CT interpreted by me (1pt min.)? @ -CT scan of the abdomen and pelvis obtained. My interpretation identifies no bowel wall thickening or free air. U/S interpreted by me (1pt. min.)? @ -Not obtained What testing was considered but not performed? (CT, X-rays, U/S, labs)? Why? @ -None What meds were considered but not given? Why? @ -None Did you discuss the management of the patient with other professionals? @ -No Did you reconcile home meds? @ -No Was smoking cessation discussed for >3mins.? @ -No Was critical care preformed (if so, how long)? @ -No Were there social determinants of health that impacted care today? How? (Homelessness, low income, unemployed, alcoholism, drug addiction, transportation, low edu. Level, literacy, decrease access to med. care, residential, rehab)? @ -No Was there de-escalation of care discussed even if they declined? (Discuss DNR or withdrawal of care, Hospice)? @ -No What co-morbidities impacted this encounter? (DM, HTN, Smoking, COPD, CAD, Cancer, CVA, Hep., AIDS, mental health diagnosis, sleep apnea, morbid obesity)? @ -None Was patient admitted / discharged? @ -Discharged. Lab work demonstrates an elevated lactic acid of 2.9. LFTs mildly elevated but improved when compared with prior. Urinalysis negative for signs of infection. CT scan of the abdomen and pelvis obtained revealing no acute process. Symptoms could be an early pancreatitis or related to something like an ulcer or gastritis. It could also be related to cannabinoid hyperemesis syndrome due to her marijuana use. Protonix, Phenergan, and Zofran prescribed for further symptomatic management. Otherwise advised follow-up with her PCP. Patient discharged home in stable condition. Case discussed with ED attending Dr. Duncan. Return precautions reviewed in depth, the patient is instructed to return to the emergency department with any new, worsening, or concerning symptoms. Patient verbalized understanding. Undiagnosed new problem with uncertain prognosis? @ -None Drug Therapy requiring intensive monitoring for toxicity (Heparin, Nitro, Insulin, Cardizem)? @ -None Were any procedures done? @ -None Diagnosis/symptom? @ -Abdominal pain, nausea and vomiting Acute, or Chronic, or Acute on Chronic? @ -Acute Uncomplicated (without systemic symptoms) or Complicated (systemic symptoms)? @ -Uncomplicated Side effects of treatment? @ -None Exacerbation, Progression, or Severe Exacerbation] @ -Not applicable Poses a threat to life or bodily function? @ -No - Lab Data Result diagrams: 09/30/24 08:59 09/30/24 08:59 Lab Results 09/30/24 09/30/24 09/30/24 Range/Units 08:59 08:59 08:59 WBC 9.1 (3.8-10.6) k/uL RBC 4.88 (3.80-5.40) m/uL Hgb 18.4 H (11.4-16.0) gm/dL Hct 53.5 H (34.0-46.0) % MCV 109.6 H (80.0-100.0) fL MCH 37.7 H (25.0-35.0) pg MCHC 34.4 (31.0-37.0) g/dL RDW 15.3 (11.5-15.5) % Plt Count 198 (150-450) k/uL MPV 7.6 Neutrophils % 79 % Lymphocytes % 12 % Monocytes % 5 % Eosinophils % 3 % Basophils % 0 % Neutrophils # 7.2 (1.3-7.7) k/uL Lymphocytes # 1.1 (1.0-4.8) k/uL Monocytes # 0.5 (0-1.0) k/uL Eosinophils # 0.2 (0-0.7) k/uL Basophils # 0.0 (0-0.2) k/uL Manual Slide Review Performed Macrocytosis Marked A Sodium 141 (137-145) mmol/L Potassium 4.4 (3.5-5.1) mmol/L Chloride 105 (98-107) mmol/L Carbon Dioxide 23 (22-30) mmol/L Anion Gap 13 mmol/L BUN 9 (7-17) mg/dL Creatinine 0.76 (0.52-1.04) mg/dL Est GFR (CKD-EPI)AfAm >90 (>60 ml/min/1.73 sqM) Est GFR (CKD-EPI)NonAf >90 (>60 ml/min/1.73 sqM) Glucose 98 (74-99) mg/dL Lactic Ac Sepsis Rflx Plasma Lactic Acid Kartik 2.9 H* (0.7-2.0) mmol/L Calcium 10.0 (8.4-10.2) mg/dL Total Bilirubin 1.4 H (0.2-1.3) mg/dL AST 49 H (14-36) U/L ALT 42 H (4-34) U/L Alkaline Phosphatase 75 (38-126) U/L Total Protein 8.1 (6.3-8.2) g/dL Albumin 4.7 (3.5-5.0) g/dL Amylase 85 (30-110) U/L Lipase 50 (23-300) U/L HCG, Qual Not Detected Urine Color Urine Appearance (Clear) Urine pH (5.0-8.0) Ur Specific [place] (1.001-1.035) Urine Protein (Negative) Urine Glucose (UA) (Negative) Urine Ketones (Negative) Urine Blood (Negative) Urine Nitrite (Negative) Urine Bilirubin (Negative) Urine Urobilinogen (<2.0) mg/dL Ur Leukocyte Esterase (Negative) Urine RBC (0-5) /hpf Urine WBC (0-5) /hpf Ur Squamous Epith Cells (0-4) /hpf Urine Mucus (None) /hpf Serum Alcohol <10 mg/dL 09/30/24 09/30/24 Range/Units 09:54 10:42 WBC (3.8-10.6) k/uL RBC (3.80-5.40) m/uL Hgb (11.4-16.0) gm/dL Hct (34.0-46.0) % MCV (80.0-100.0) fL MCH (25.0-35.0) pg MCHC (31.0-37.0) g/dL RDW (11.5-15.5) % Plt Count (150-450) k/uL MPV Neutrophils % % Lymphocytes % % Monocytes % % Eosinophils % % Basophils % % Neutrophils # (1.3-7.7) k/uL Lymphocytes # (1.0-4.8) k/uL Monocytes # (0-1.0) k/uL Eosinophils # (0-0.7) k/uL Basophils # (0-0.2) k/uL Manual Slide Review Macrocytosis Sodium (137-145) mmol/L Potassium (3.5-5.1) mmol/L Chloride (98-107) mmol/L Carbon Dioxide (22-30) mmol/L Anion Gap mmol/L BUN (7-17) mg/dL Creatinine (0.52-1.04) mg/dL Est GFR (CKD-EPI)AfAm (>60 ml/min/1.73 sqM) Est GFR (CKD-EPI)NonAf (>60 ml/min/1.73 sqM) Glucose (74-99) mg/dL Lactic Ac Sepsis Rflx Y Plasma Lactic Acid Kartik (0.7-2.0) mmol/L Calcium (8.4-10.2) mg/dL Total Bilirubin (0.2-1.3) mg/dL AST (14-36) U/L ALT (4-34) U/L Alkaline Phosphatase (38-126) U/L Total Protein (6.3-8.2) g/dL Albumin (3.5-5.0) g/dL Amylase (30-110) U/L Lipase (23-300) U/L HCG, Qual Urine Color Yellow Urine Appearance Clear (Clear) Urine pH 6.0 (5.0-8.0) Ur Specific [place] 1.020 (1.001-1.035) Urine Protein Negative (Negative) Urine Glucose (UA) Negative (Negative) Urine Ketones Negative (Negative) Urine Blood Negative (Negative) Urine Nitrite Negative (Negative) Urine Bilirubin Negative (Negative) Urine Urobilinogen <2.0 (<2.0) mg/dL Ur Leukocyte Esterase Small H (Negative) Urine RBC <1 (0-5) /hpf Urine WBC 2 (0-5) /hpf Ur Squamous Epith Cells 6 H (0-4) /hpf Urine Mucus Rare H (None) /hpf Serum Alcohol mg/dL - Radiology Data Radiology results: report reviewed, image reviewed Disposition Clinical Impression: Abdominal pain Disposition: HOME SELF-CARE Instructions (If sedation given, give patient instructions): Abdominal Pain (ED) Additional Instructions: Return to the emergency department with any new, worsening, or concerning symptoms. Alternate with ibuprofen and Tylenol as needed for pain relief. Take the pantoprazole daily for the next 2 weeks. Take this 30 to 60 minutes before eating or taking other medication for the best effect. Take the [place] sparingly when your pain is the most severe. Take the Zofran up to every 8 hours as needed for nausea and vomiting. Follow up with your primary care provider in 1- 2 days. Prescriptions: HYDROcodone/APAP 5-325MG [[place] 5-325] 1 tab PO Q6HR PRN 3 Days #12 tab PRN Reason: Pain Pantoprazole Sodium 40 mg PO DAILY 14 Days #14 tab Promethazine [Phenergan] 25 mg PO Q6HR PRN #20 tablet PRN Reason: Nausea And Vomiting Ondansetron Odt [Zofran Odt] 4 mg PO Q8HR PRN #15 tab PRN Reason: Nausea And Vomiting Is patient prescribed a controlled substance at d/c from ED?: No Referrals: Tiara Pollock MD [Primary Care Provider] - 1-2 days Time of Disposition: 12:35
[2024-09-30] MEDS: SODIUM CHLORIDE 0.9% 1,000 ML IV STA ×2 (09:03→10:56)
[2024-09-30] MEDS: KETOROLAC 15 MG/ML 1 ML VIAL IVP STA (09:04)
[2024-09-30] MEDS: ONDANSETRON 4 MG/2 ML VIAL IVP STA (09:04)
[2024-09-30] MEDS: HYDROmorphone 1 MG/ML 1 ML SYRINGE IVP STA ×2 (09:05→13:11)
[2024-09-30 09:35] LABS: Basophils % (A) 0 %; Eosinophils # (A) 0.2 k/uL (0-0.7); Eosinophils % (A) 3 %; HCT 53.5 % (34.0-46.0); HGB 18.4 gm/dL (11.4-16.0); Lymphocytes # (A) 1.1 k/uL (1.0-4.8); Lymphocytes % (A) 12 %; MCH 37.7 pg (25.0-35.0); MCHC 34.4 g/dL (31.0-37.0); MCV 109.6 fL (80.0-100.0); Macrocytosis Marked; Mean Platelet Volume 7.6; Monocytes # (A) 0.5 k/uL (0-1.0); Monocytes % (A) 5 %; Neutrophils # (A) 7.2 k/uL (1.3-7.7); Neutrophils % (A) 79 %; Platelet Count 198 k/uL (150-450); RBC 4.88 m/uL (3.80-5.40); RDW 15.3 % (11.5-15.5); WBC 9.1 k/uL (3.8-10.6)
[2024-09-30 09:41] LABS: HCG,Qualitative Serum Not Detected
[2024-09-30 09:44] LABS: ALT 42 U/L (4-34); AST 49 U/L (14-36); African American GFR (CKD) >90 (>60 ml/min/1.73 sqM); Albumin 4.7 g/dL (3.5-5.0); Alcohol <10 mg/dL; Alkaline Phosphatase 75 U/L (38-126); Amylase 85 U/L (30-110); Anion Gap 13 mmol/L; Blood Urea Nitrogen 9 mg/dL (7-17); Carbon Dioxide 23 mmol/L (22-30); Chloride 105 mmol/L (98-107); Glucose 98 mg/dL (74-99); Lipase 50 U/L (23-300); Non-African American GFR(CKD) >90 (>60 ml/min/1.73 sqM); Potassium 4.4 mmol/L (3.5-5.1); Sodium 141 mmol/L (137-145); Total Bilirubin 1.4 mg/dL (0.2-1.3); Total Protein 8.1 g/dL (6.3-8.2)
[2024-09-30] MEDS: droPERidol 5 MG/2 ML VIAL IVP ONE (10:54)
[2024-09-30 11:02] LABS: Appearance,Urine Clear (Clear); Bilirubin,Urine Negative (Negative); Blood,Urine Negative (Negative); Color,Urine Yellow; Glucose,Urine (UA) Negative (Negative); Ketones,Urine Negative (Negative); Leukocyte Esterase,Urine Small (Negative); Mucus,Urine Rare /hpf; Nitrite,Urine Negative (Negative); Protein,Urine Negative (Negative); RBC,Urine <1 /hpf (0-5); Squamous Epithelial Cell,Urine 6 /hpf (0-4); Urobilinogen,Urine <2.0 mg/dL (<2.0); WBC,Urine 2 /hpf (0-5)
--- NOTE | 2024-09-30 11:52 | CT ---
EXAMINATION TYPE: CT abdomen pelvis w con CT DLP: 1403.3 mGycm, Automated exposure control for dose reduction was used. DATE OF EXAM: 09/30/2024 11:41 AM COMPARISON: Gallbladder ultrasound 08/09/2024, 06/16/2024, CT abdomen and pelvis 06/16/2024 CLINICAL INDICATION:Female, 29 years old with history of Abdominal pain, acute, nonlocalized; ABD PARKER N TECHNIQUE: Standard CT of the abdomen and pelvis following the administration of 100 cc of Isovue 3 00 IV contrast material. Coronal and sagittal reformats were performed. FINDINGS: LOWER CHEST: Posterior dependent subsegmental atelectasis is noted. ABDOMEN LIVER: Diffusely hypoattenuating parenchyma. No focal lesion. GALLBLADDER AND BILE DUCTS: Unremarkable. PANCREAS: Unremarkable. No surrounding inflammatory changes or focal lesion identified. No ductal dil atation or parenchymal calcifications. SPLEEN: Unremarkable. ADRENAL GLANDS: Unremarkable. KIDNEYS AND URETERS: No evidence of hydronephrosis and no right renal calculus. Nonobstructive left r enal lower pole 3 mm calculus. The kidneys enhance symmetrically. Contrast is demonstrated within bot h collecting systems on the delayed phase. PELVIS BLADDER: Under distended, limiting evaluation. REPRODUCTIVE: Unremarkable. ABDOMEN & PELVIS STOMACH AND BOWEL: Stomach and duodenum are unremarkable. The appendix is within normal limits. No fo twyla bowel wall thickening or surrounding inflammatory changes. No evidence of bowel obstruction. PERITONEUM: No evidence of pneumoperitoneum or free fluid. VASCULATURE: No evidence of aortic aneurysm. Pelvic phleboliths. MUSCULOSKELETAL: No acute osseous abnormalities LYMPH NODES: No evidence for lymphadenopathy. SOFT TISSUE/ABDOMINAL WALL: Unremarkable IMPRESSION: 1. No CT evidence for acute abdominal systolic process. 2. Hepatic steatosis. 3. Nonobstructive left renal calculus. [facility], , 09/30/2024 11:49 AM
[2024-09-30] MEDS: ONDANSETRON 4 MG ODT STARTER PACK 2 TAB BTL PO STA (13:11)
[2024-09-30] MEDS: traMADol 50 MG STARTER PACK 3 TAB BTL PO STA (13:11)
[2024-09-30 13:14] VITALS: BP 141/95; PULSE 64; TEMP 98.2
== END 2024-09-30 13:15 | disposition home or self-care (01) ==
LOC: EC 08:48
DX: R10.13 Epigastric pain (principal); F17.200 Nicotine dependence, unspecified, uncomplicated
CPT/HCPCS: 36415; 80053; 82150; 83605; 83690; 85025; 81001; 84703; 74177; 99285; 96374; 96375; 96361; G0480; J2405; J1171; J1885; S0119; Q9967; J1790; 80320

== ENCOUNTER 2024-10-09 05:24 | Observation (INO) | payer OTHER ==
[2024-10-09] MEDS: METOCLOPRAMIDE 5 MG/ML 2 ML VIAL IVP STA (06:23)
[2024-10-09] MEDS: KETOROLAC 15 MG/ML 1 ML VIAL IVP STA (06:23)
[2024-10-09] MEDS: diphenhydrAMINE 50 MG/ML 1 ML VIAL IVP STA (06:23)
[2024-10-09] MEDS: SODIUM CHLORIDE 0.9% 1,000 ML IV ONE (06:24)
--- NOTE | 2024-10-09 06:27 | ED ---
General Adult HPI - General Chief complaint: Abdominal Pain Stated complaint: Back pain, abn labs Time Seen by Provider: 10/09/24 06:03 Source: patient, RN notes reviewed Mode of arrival: wheelchair Limitations: no limitations - History of Present Illness Initial comments: 29-year-old female presents to the emergency department for evaluation of abdominal pain radiating to her back. She states that this started last night. She notes that the pain has been constant and is located in her upper abdomen mostly in the epigastric region. No aggravating or relieving factor. The reports taking Tylenol and ibuprofen for this without relief. Has a history of pancreatitis from alcoholism but states that she has decreased her alcohol intake. She does note that this feels similar to her prior pancreatitis. Patient also notes a lesion on her buttock. She has a history of hidradenitis suppurativa. She notices about 5 days ago. She states that it is red and tender to palpation. She denies any fever, chills. Endorses nausea and vomiting. - Related Data Previous Rx's Medication Instructions Recorded cloNIDine HCL [Catapres] 0.1 mg PO TID 30 Days #90 tab 06/22/24 HYDROcodone/APAP 5-325MG [[place] 1 tab PO Q6HR PRN 3 Days #12 tab 08/03/24 5-325] Ondansetron Odt [Zofran ODT] 4 mg PO Q8HR PRN #15 tab 09/30/24 Sulfamethox-Tmp 800-160Mg [B[place] 1 tab PO Q12HR 10 Days #20 tab 10/10/24 DS 800-160 mg] Allergies Allergy/AdvReac Type Severity Reaction Status Date / Time No Known Allergies Allergy Verified 10/09/24 09:42 Review of Systems ROS Statement: Those systems with pertinent positive or pertinent negative responses have been documented in the HPI. ROS Other: All systems not noted in ROS Statement are negative. Past Medical History Past Medical History: Hypertension, Thyroid Disorder Additional Past Medical History / Comment(s): Hydradenitis suppertiva; Kidney stones, PANCREATITIS History of Any Multi-Drug Resistant Organisms: None Reported Past Surgical History: No Surgical Hx Reported Additional Past Surgical History / Comment(s): cyst removed from buttocks two years ago, cystoscopy with right ureteroscopy and holmium laser lithotripsy on 09/19/2020 Past Anesthesia/Blood Transfusion Reactions: No Reported Reaction Past Psychological History: Anxiety, Depression Smoking Status: Current every day smoker, Heavy tobacco smoker Past Alcohol Use History: Occasional Past Drug Use History: Marijuana - Past Family History Mother Family Medical History: No Reported History General Exam Limitations: no limitations General appearance: alert, in no apparent distress Head exam: Present: atraumatic, normocephalic, normal inspection Eye exam: Present: normal appearance, PERRL, EOMI. Absent: scleral icterus, conjunctival injection, periorbital swelling ENT exam: Present: mucous membranes dry Neck exam: Present: normal inspection. Absent: tenderness, meningismus, lymphadenopathy Respiratory exam: Present: normal lung sounds bilaterally. Absent: respiratory distress, wheezes, rales, rhonchi, stridor Cardiovascular Exam: Present: normal rhythm, tachycardia, normal heart sounds. Absent: systolic murmur, diastolic murmur, rubs, gallop, clicks GI/Abdominal exam: Present: soft, tenderness, normal bowel sounds. Absent: distended, guarding, rebound, rigid Extremities exam: Present: normal inspection, full ROM, normal capillary refill. Absent: tenderness, pedal edema, joint swelling, calf tenderness Neurological exam: Present: alert, oriented X3 Psychiatric exam: Present: normal affect, normal mood Skin exam: Present: warm, dry, erythema, other (Abscess to the left gluteal region). Absent: intact, normal color, rash Course Vital Signs 10/09/24 10/09/24 10/09/24 05:25 06:45 09:21 Temperature 98.5 F 97.9 F Pulse Rate 141 H 105 H 94 Respiratory 20 20 16 Rate Blood Pressure 137/92 130/86 123/75 O2 Sat by Pulse 96 96 98 Oximetry 10/09/24 15:12 Temperature Pulse Rate 94 Respiratory 18 Rate Blood Pressure 130/90 O2 Sat by Pulse 97 Oximetry Medical Decision Making - Medical Decision Making Was pt. sent in by a medical professional or institution (, PA, PACKAGE LINER, urgent care, hospital, or alf...) When possible be specific @ -No Did you speak to anyone other than the patient for history (EMS, parent, family, police, friend...)? What history was obtained from this source @ -No Did you review nursing and triage notes (agree or disagree)? Why? @ -I reviewed and agree with nursing and triage notes Were old charts reviewed (outside hosp., previous admission, EMS record, old EKG, old radiological studies, urgent care reports/EKG's, alf records)? Report findings @ -No old charts were reviewed Differential Diagnosis (chest pain, altered mental status, abdominal pain women, abdominal pain men, vaginal bleeding, weakness, fever, dyspnea, syncope, headache, dizziness, GI bleed, back pain, seizure, CVA, palpatations, mental health, musculoskeletal)? @ -Differential Abdominal Pain Women: Appendicitis, Cholecystitis, diverticulosis, ischemic bowel, pancreatitis, hepatitis, UTI, gastroenteritis, AAA, incarcerated hernia, bowel obstruction, constipation, inflammatory bowel, hepatitis, peptic ulcer disease, splenic infarction, perforated viscus, vulvitis, ovarian torsion, PID, kidney stone, placenta abruption, this is not meant to be an all-inclusive list EKG interpreted by me (3pts min.). @ -None X-rays interpreted by me (1pt min.). @ -None done CT interpreted by me (1pt min.). @ -None done U/S interpreted by me (1pt. min.). @ -Ultrasound of the buttock shows focal area which is likely an abscess What testing was considered but not performed or refused? (CT, X-rays, U/S, labs)? Why? @ -None What meds were considered but not given or refused? Why? @ -None Did you discuss the management of the patient with other professionals (professionals i.e. , PA, PACKAGE LINER, lab, RT, psych nurse, social media specialist, health program director, teacher, security control room officer, housing case manager)? Give summary @ -Management discussed with [facility] was accepting of the admission Was smoking cessation discussed for >3mins.? @ -No Was critical care preformed (if so, how long)? @ -No Were there social determinants of health that impacted care today? How? (Homelessness, low income, unemployed, alcoholism, drug addiction, transportation, low edu. Level, literacy, decrease access to med. care, prison, rehab)? @ -No Was there de-escalation of care discussed even if they declined (Discuss DNR or withdrawal of care, Hospice)? DNR status @ -No What co-morbidities impacted this encounter? (DM, HTN, Smoking, COPD, CAD, Cancer, CVA, ARF, Chemo, Hep., AIDS, mental health diagnosis, sleep apnea, morbid obesity)? @ -None Was patient admitted / discharged? Hospital course, mention meds given and route, prescriptions, significant lab abnormalities, going to OR and other pertinent info. @ -h admitted.Patient presented emergency department for evaluation of abdominal pain and wound on the buttock. Laboratory studies obtained revealing leukocytosis at 20.0 CMP shows mild hypokalemia with a potassium of 3.4, lactic acidosis of 2.7. Patient was administered IV fluids. A wound culture was obtained. She was administered IV antibiotics. She will be admitted to the hospital for continued IV antibiotics for the buttock abscess. She is understanding agreeable with this plan. Stable at time of admission. Case discussed with Dr. Madden. Undiagnosed new problem with uncertain prognosis? @ -No Drug Therapy requiring intensive monitoring for toxicity (Heparin, Nitro, Insulin, Cardizem)? @ -No Were any procedures done? @ -No Diagnosis/symptom? @ -Abscess Acute, or Chronic, or Acute on Chronic? @ -Acute Uncomplicated (without systemic symptoms) or Complicated (systemic symptoms)? @ -Complicated Side effects of treatment? @ -No Exacerbation, Progression, or Severe Exacerbation? @ -No Poses a threat to life or bodily function? How? (Chest pain, USA, VT, pneumonia, PE, COPD, DKA, ARF, appy, cholecystitis, CVA, Diverticulitis, Homicidal, Suicidal, threat to staff... and all critical care pts) @ -No - Lab Data Result diagrams: 10/10/24 04:23 10/10/24 04:23 Lab Results 10/09/24 10/09/24 10/09/24 Range/Units 05:39 05:39 07:19 WBC 20.0 H (3.8-10.6) k/uL RBC 4.80 (3.80-5.40) m/uL Hgb 18.0 H (11.4-16.0) gm/dL Hct 51.1 H (34.0-46.0) % MCV 106.5 H (80.0-100.0) fL MCH 37.5 H (25.0-35.0) pg MCHC 35.2 (31.0-37.0) g/dL RDW 15.2 (11.5-15.5) % Plt Count 268 (150-450) k/uL MPV 8.3 Neutrophils % 88 % Lymphocytes % 7 % Monocytes % 4 % Eosinophils % 1 % Basophils % 0 % Neutrophils # 17.6 H (1.3-7.7) k/uL Lymphocytes # 1.4 (1.0-4.8) k/uL Monocytes # 0.7 (0-1.0) k/uL Eosinophils # 0.1 (0-0.7) k/uL Basophils # 0.1 (0-0.2) k/uL Macrocytosis Moderate Sodium (137-145) mmol/L Potassium (3.5-5.1) mmol/L Chloride (98-107) mmol/L Carbon Dioxide (22-30) mmol/L Anion Gap mmol/L BUN (7-17) mg/dL Creatinine (0.52-1.04) mg/dL Est GFR (CKD-EPI)AfAm (>60 ml/min/1.73 sqM) Est GFR (CKD-EPI)NonAf (>60 ml/min/1.73 sqM) Glucose (74-99) mg/dL Lactic Ac Sepsis Rflx Y Plasma Lactic Acid Kartik 2.7 H* (0.7-2.0) mmol/L Calcium (8.4-10.2) mg/dL Total Bilirubin (0.2-1.3) mg/dL AST (14-36) U/L ALT (4-34) U/L Alkaline Phosphatase (38-126) U/L Total Protein (6.3-8.2) g/dL Albumin (3.5-5.0) g/dL Amylase (30-110) U/L Lipase (23-300) U/L 10/09/24 Range/Units 07:55 WBC (3.8-10.6) k/uL RBC (3.80-5.40) m/uL Hgb (11.4-16.0) gm/dL Hct (34.0-46.0) % MCV (80.0-100.0) fL MCH (25.0-35.0) pg MCHC (31.0-37.0) g/dL RDW (11.5-15.5) % Plt Count (150-450) k/uL MPV Neutrophils % % Lymphocytes % % Monocytes % % Eosinophils % % Basophils % % Neutrophils # (1.3-7.7) k/uL Lymphocytes # (1.0-4.8) k/uL Monocytes # (0-1.0) k/uL Eosinophils # (0-0.7) k/uL Basophils # (0-0.2) k/uL Macrocytosis Sodium 137 (137-145) mmol/L Potassium 3.4 L (3.5-5.1) mmol/L Chloride 105 (98-107) mmol/L Carbon Dioxide 19 L (22-30) mmol/L Anion Gap 13 mmol/L BUN 4 L (7-17) mg/dL Creatinine 0.62 (0.52-1.04) mg/dL Est GFR (CKD-EPI)AfAm >90 (>60 ml/min/1.73 sqM) Est GFR (CKD-EPI)NonAf >90 (>60 ml/min/1.73 sqM) Glucose 96 (74-99) mg/dL Lactic Ac Sepsis Rflx Plasma Lactic Acid Kartik (0.7-2.0) mmol/L Calcium 9.0 (8.4-10.2) mg/dL Total Bilirubin 1.5 H (0.2-1.3) mg/dL AST 28 (14-36) U/L ALT 20 (4-34) U/L Alkaline Phosphatase 87 (38-126) U/L Total Protein 7.2 (6.3-8.2) g/dL Albumin 4.0 (3.5-5.0) g/dL Amylase 46 (30-110) U/L Lipase 25 (23-300) U/L Disposition Clinical Impression: Abscess of buttock, Cellulitis Disposition: ADMITTED IP TO THIS HOSP Condition: Stable Is patient prescribed a controlled substance at d/c from ED?: No
[2024-10-09] MEDS: MORPHINE SULFATE 4 MG/ML SYRINGE IVP STA (06:50)
[2024-10-09 07:18] LABS: Basophils # (A) 0.1 k/uL (0-0.2); Basophils % (A) 0 %; Eosinophils # (A) 0.1 k/uL (0-0.7); Eosinophils % (A) 1 %; HCT 51.1 % (34.0-46.0); Lymphocytes # (A) 1.4 k/uL (1.0-4.8); Lymphocytes % (A) 7 %; MCH 37.5 pg (25.0-35.0); MCHC 35.2 g/dL (31.0-37.0); MCV 106.5 fL (80.0-100.0); Macrocytosis Moderate; Mean Platelet Volume 8.3; Monocytes # (A) 0.7 k/uL (0-1.0); Monocytes % (A) 4 %; Neutrophils # (A) 17.6 k/uL (1.3-7.7); Neutrophils % (A) 88 %; Platelet Count 268 k/uL (150-450); RDW 15.2 % (11.5-15.5)
[2024-10-09] MEDS: CLINDAMYCIN 600 MG in DEXTROSE 5% IN WATER 50 ML IVPB STA (07:45)
[2024-10-09] MEDS: LACTATED RINGERS 1,000 ML IV ONE (07:46)
[2024-10-09 08:15] LABS: ALT 20 U/L (4-34); AST 28 U/L (14-36); African American GFR (CKD) >90 (>60 ml/min/1.73 sqM); Alkaline Phosphatase 87 U/L (38-126); Amylase 46 U/L (30-110); Anion Gap 13 mmol/L; Blood Urea Nitrogen 4 mg/dL (7-17); Carbon Dioxide 19 mmol/L (22-30); Chloride 105 mmol/L (98-107); Glucose 96 mg/dL (74-99); Lipase 25 U/L (23-300); Non-African American GFR(CKD) >90 (>60 ml/min/1.73 sqM); Potassium 3.4 mmol/L (3.5-5.1); Sodium 137 mmol/L (137-145); Total Bilirubin 1.5 mg/dL (0.2-1.3); Total Protein 7.2 g/dL (6.3-8.2)
[2024-10-09] MEDS: MORPHINE SULFATE 2 MG/ML SYRINGE IVP ONE (09:18)
--- NOTE | 2024-10-09 10:21 | US ---
EXAMINATION TYPE: US extremity nonvasc mass LT DATE OF EXAM: 10/09/2024 COMPARISON: NONE CLINICAL INDICATION: Female, 29 years old with history of buttock ?abscess; Sore on left buttocks miriam t is oozing. x 5 days. TECHNIQUE: Grayscale imaging of the buttock. FINDINGS: Hypoechoic area seen moving at area of concern measuring 2.1 x .8 x 1.0 cm. IMPRESSION: Subcutaneous edema with focal area of moving debris within a fluid collection suggesting abscess. [facility], , 10/09/2024 10:19 AM
[2024-10-09] MEDS ORDERED: NALOXONE 0.4 MG/ML 1 ML VIAL IV PRN ×2 (10:32→13:54)
[2024-10-09] MEDS ORDERED: KETOROLAC 15 MG/ML 1 ML VIAL IVP PRN (10:32)
[2024-10-09] MEDS: MORPHINE SULFATE 4 MG/ML SYRINGE IV PRN (11:27)
[2024-10-09] MEDS: LACTATED RINGERS 1,000 ML IV SCH (11:27)
[2024-10-09 12:27] LABS: Appearance,Urine Cloudy (Clear); Bilirubin,Urine Negative (Negative); Blood,Urine Negative (Negative); Color,Urine Dark Brown; Glucose,Urine (UA) Negative (Negative); Hyaline Casts,Urine 8 /lpf (0-2); Ketones,Urine 1+ (Negative); Leukocyte Esterase,Urine Moderate (Negative); Mucus,Urine Many /hpf; Nitrite,Urine Negative (Negative); Protein,Urine 1+ (Negative); RBC,Urine 2 /hpf (0-5); Specific Gravity,Urine 1.026 (1.001-1.035); Squamous Epithelial Cell,Urine 19 /hpf (0-4); WBC,Urine 6 /hpf (0-5)
[2024-10-09] MEDS ORDERED: MAG HYDROX/AL HYDROX/SIMETH 30 ML CUP PO PRN (13:54)
[2024-10-09] MEDS ORDERED: VANCOMYCIN IV PER PHARMACY 1 EACH MISC MISCELLANE PRN (13:55)
--- NOTE | 2024-10-09 13:58 | P.HPIM ---
History of Present Illness H&P Date: 10/09/24 History of present illness; patient is a 29-year-old lady with past medical history significant for hypertension who came in the ER because of left gluteal swelling. Patient stated that she was all right 4 days back when she started noticing that there was a pimple on her left buttock. Patient noticed over the last couple of days the pimple started increasing in size and became as big in size of a golf ball, it was very painful, patient noticed discharge from the swelling. Patient also complaining of fever and chills at home. Patient also had nausea and vomiting. Patient denies any abdominal pain. There is no complaint of chest pain or shortness of breath. Patient did not see any medical help initially as she felt that it would heal on its own and was also reluctant to come to the hospital. Since the swelling kept increasing, patient decided to come to the ER Initial lab work done in the ER showed WBC 20, hemoglobin 18, platelet count 268, lactate 2.7, sodium 137, potassium 3.4, BUN 4, creatinine 0.62, glucose 96, bilirubin 1.5, AST 28, ALT 20, UA done showed moderate amount of leukocyte Estrace, urine WBC 6 Ultrasound soft tissue done showed subcutaneous edema with focal area of moving diabetes within a fluid collection suggesting abscess Patient admitted to internal medicine service REVIEW OF SYSTEMS: CONSTITUTIONAL: As mentioned above HEENT: No recent visual problems or hearing problems. Denied any sore throat. CARDIOVASCULAR: No chest pain, orthopnea, PND, no palpitations, no syncope. PULMONARY: As mentioned above GASTROINTESTINAL: No diarrhea, no nausea, no vomiting, no abdominal pain. NEUROLOGICAL: No headaches, no weakness, no numbness. HEMATOLOGICAL: Denies any bleeding or petechiae. GENITOURINARY: Denies any burning micturition, frequency, or urgency. MUSCULOSKELETAL/RHEUMATOLOGICAL: Denies any joint pain, swelling, or any muscle pain. ENDOCRINE: Denies any polyuria or polydipsia. The rest of the 14-point review of systems is negative. PHYSICAL EXAMINATION: GENERAL: The patient is alert and oriented x3, not in any acute distress. Well developed, well nourished. HEENT: Pupils are round and equally reacting to light. EOMI. No scleral icterus. No conjunctival pallor. Normocephalic, atraumatic. No pharyngeal erythema. No thyromegaly. CARDIOVASCULAR: S1 and S2 present. No murmurs, rubs, or gallops. PULMONARY: Chest is clear to auscultation, no wheezing or crackles. ABDOMEN: Soft, nontender, nondistended, normoactive bowel sounds. No palpable organomegaly. MUSCULOSKELETAL: No joint swelling or deformity. EXTREMITIES: No cyanosis, clubbing, or pedal edema. NEUROLOGICAL: Gross neurological examination did not reveal any focal deficits. SKIN: Left gluteal swelling, erythema noticeable, 5.6 cm in size, tender Assessment and plan Sepsis Left gluteal abscess Lactic acidosis Hypertension Monitor vital signs Monitor CBC Monitor CMP Ordered blood cultures Ordered wound cultures Serial lactate monitoring Ordered IV fluids Ordered IV Rocephin and vancomycin Ordered CRP, ESR, Pro-Ilan Consult ID Consult surgery Labs and medication were reviewed.. Continue same treatment. Continue with symptomatic treatment. Resume home medication. Monitor labs and vitals. DVT and GI prophylaxis. Further recommendations as per clinical course of the patient Dictation was produced using Wimdu dictation software. please excuse any grammatical, word or spelling errors. Past Medical History Past Medical History: Hypertension, Thyroid Disorder Additional Past Medical History / Comment(s): Hydradenitis suppertiva; Kidney stones, PANCREATITIS History of Any Multi-Drug Resistant Organisms: None Reported Past Surgical History: No Surgical Hx Reported Additional Past Surgical History / Comment(s): cyst removed from buttocks two years ago, cystoscopy with right ureteroscopy and holmium laser lithotripsy on 09/19/2020 Past Anesthesia/Blood Transfusion Reactions: No Reported Reaction Past Psychological History: Anxiety, Depression Smoking Status: Current every day smoker, Heavy tobacco smoker Past Alcohol Use History: Occasional Past Drug Use History: Marijuana - Past Family History Mother Family Medical History: No Reported History Medications and Allergies Home Medications Medication Instructions Recorded Confirmed Type cloNIDine HCL [Catapres] 0.1 mg PO TID 30 Days #90 tab 06/22/24 10/09/24 Rx HYDROcodone/APAP 5-325MG [[place] 1 tab PO Q6HR PRN 3 Days #12 tab 08/03/24 10/09/24 Rx 5-325] Ondansetron Odt [Zofran Odt] 4 mg PO Q8HR PRN #15 tab 09/30/24 10/09/24 Rx Allergies Allergy/AdvReac Type Severity Reaction Status Date / Time No Known Allergies Allergy Verified 10/09/24 09:42 Physical Exam Vitals: Vital Signs Temp Pulse Resp BP Pulse Ox 10/09/24 09:21 97.9 F 94 16 123/75 98 10/09/24 06:45 105 H 20 130/86 96 10/09/24 05:25 98.5 F 141 H 20 137/92 96 Intake and Output 10/08/24 10/09/24 10/09/24 22:59 06:59 14:59 Other: Weight 97.069 kg Results CBC & Chem 7: 10/09/24 05:39 10/09/24 07:55 Labs: Abnormal Lab Results - Last 24 Hours (Table) 10/09/24 10/09/24 10/09/24 Range/Units 05:39 05:39 07:55 WBC 20.0 H (3.8-10.6) k/uL Hgb 18.0 H (11.4-16.0) gm/dL Hct 51.1 H (34.0-46.0) % MCV 106.5 H (80.0-100.0) fL MCH 37.5 H (25.0-35.0) pg Neutrophils # 17.6 H (1.3-7.7) k/uL Potassium 3.4 L (3.5-5.1) mmol/L Carbon Dioxide 19 L (22-30) mmol/L BUN 4 L (7-17) mg/dL Plasma Lactic Acid Kartik 2.7 H* (0.7-2.0) mmol/L Total Bilirubin 1.5 H (0.2-1.3) mg/dL Urine Appearance (Clear) Urine Protein (Negative) Urine Ketones (Negative) Ur Leukocyte Esterase (Negative) Urine WBC (0-5) /hpf Ur Squamous Epith Cells (0-4) /hpf Hyaline Casts (0-2) /lpf Urine Mucus (None) /hpf 10/09/24 Range/Units 12:17 WBC (3.8-10.6) k/uL Hgb (11.4-16.0) gm/dL Hct (34.0-46.0) % MCV (80.0-100.0) fL MCH (25.0-35.0) pg Neutrophils # (1.3-7.7) k/uL Potassium (3.5-5.1) mmol/L Carbon Dioxide (22-30) mmol/L BUN (7-17) mg/dL Plasma Lactic Acid Kartik (0.7-2.0) mmol/L Total Bilirubin (0.2-1.3) mg/dL Urine Appearance Cloudy H (Clear) Urine Protein 1+ H (Negative) Urine Ketones 1+ H (Negative) Ur Leukocyte Esterase Moderate H (Negative) Urine WBC 6 H (0-5) /hpf Ur Squamous Epith Cells 19 H (0-4) /hpf Hyaline Casts 8 H (0-2) /lpf Urine Mucus Many H (None) /hpf
[2024-10-09] MEDS: ONDANSETRON 4 MG/2 ML VIAL IVP PRN (14:43)
[2024-10-09] MEDS: VANCOMYCIN 2,000 MG in SODIUM CHLORIDE 0.9% 500 ML 500 ML IVPB ONE (15:28)
[2024-10-09] MEDS ORDERED: CLINDAMYCIN 300 MG in DEXTROSE 5% IN WATER 50 ML IVPB SCH (16:00)
--- NOTE | 2024-10-09 17:15 | P.GSCN ---
History of Present Illness Consult date: 10/09/24 Reason for Consult: Left buttock hidradenitis supra History of present illness: This a 29-year-old female who has a history of hidradenitis. Patient has had chronically inflamed skin on her left buttock for many years. Patient has developed an abscess on her left buttock. The abscess has been draining spontaneously. Patient dates that she has had some improvement with IV antibiotics. Past Medical History Past Medical History: Hypertension, Thyroid Disorder Additional Past Medical History / Comment(s): Hydradenitis suppertiva; Kidney stones, PANCREATITIS, low thyroid History of Any Multi-Drug Resistant Organisms: None Reported Past Surgical History: No Surgical Hx Reported Additional Past Surgical History / Comment(s): cyst removed from buttocks two years ago, cystoscopy with right ureteroscopy and holmium laser lithotripsy on 09/19/2020 Past Anesthesia/Blood Transfusion Reactions: No Reported Reaction Past Psychological History: Anxiety, Depression Smoking Status: Current every day smoker, Heavy tobacco smoker Past Alcohol Use History: Occasional Past Drug Use History: Marijuana Additional Drug Use History / Comment(s): 1/2 ppd. States she has a [employer] card. Reports she "tries not to smoke everyday. More like every other day". - Past Family History Mother Family Medical History: No Reported History Medications and Allergies Home Medications Medication Instructions Recorded Confirmed Type cloNIDine HCL [[place]] 0.1 mg PO TID 30 Days #90 tab 06/22/24 10/09/24 Rx HYDROcodone/APAP 5-325MG [[place] 1 tab PO Q6HR PRN 3 Days #12 tab 08/03/24 10/09/24 Rx 5-325] Ondansetron Odt [Zofran Odt] 4 mg PO Q8HR PRN #15 tab 09/30/24 10/09/24 Rx Allergies Allergy/AdvReac Type Severity Reaction Status Date / Time No Known Allergies Allergy Verified 10/09/24 09:42 Surgical - Exam Vital Signs Temp Pulse Resp BP Pulse Ox 98.5 F 141 H 20 137/92 96 10/09/24 05:25 10/09/24 05:25 10/09/24 05:25 10/09/24 05:25 10/09/24 05:25 - General well developed, well nourished, no distress - Eyes PERRL - ENT normal pinna, normal nares - Neck no masses - Respiratory normal expansion - Cardiovascular Rhythm: regular - Abdomen Abdomen: soft, non tender - Integumentary Left gluteal hidradenitis s. There is a's draining skin lesion. The area is firm. There is no definite abscess palpated. Results - Labs 10/09/24 05:39 10/09/24 07:55 Abnormal Lab Results - Last 24 Hours (Table) 10/09/24 10/09/24 10/09/24 Range/Units 05:39 05:39 07:55 WBC 20.0 H (3.8-10.6) k/uL Hgb 18.0 H (11.4-16.0) gm/dL Hct 51.1 H (34.0-46.0) % MCV 106.5 H (80.0-100.0) fL MCH 37.5 H (25.0-35.0) pg Neutrophils # 17.6 H (1.3-7.7) k/uL Potassium 3.4 L (3.5-5.1) mmol/L Carbon Dioxide 19 L (22-30) mmol/L BUN 4 L (7-17) mg/dL Plasma Lactic Acid Kartik 2.7 H* (0.7-2.0) mmol/L Total Bilirubin 1.5 H (0.2-1.3) mg/dL C-Reactive Protein (<1.0) mg/dL Urine Appearance (Clear) Urine Protein (Negative) Urine Ketones (Negative) Ur Leukocyte Esterase (Negative) Urine WBC (0-5) /hpf Ur Squamous Epith Cells (0-4) /hpf Hyaline Casts (0-2) /lpf Urine Mucus (None) /hpf 10/09/24 10/09/24 Range/Units 12:17 14:08 WBC (3.8-10.6) k/uL Hgb (11.4-16.0) gm/dL Hct (34.0-46.0) % MCV (80.0-100.0) fL MCH (25.0-35.0) pg Neutrophils # (1.3-7.7) k/uL Potassium (3.5-5.1) mmol/L Carbon Dioxide (22-30) mmol/L BUN (7-17) mg/dL Plasma Lactic Acid Kartik (0.7-2.0) mmol/L Total Bilirubin (0.2-1.3) mg/dL C-Reactive Protein 16.0 H (<1.0) mg/dL Urine Appearance Cloudy H (Clear) Urine Protein 1+ H (Negative) Urine Ketones 1+ H (Negative) Ur Leukocyte Esterase Moderate H (Negative) Urine WBC 6 H (0-5) /hpf Ur Squamous Epith Cells 19 H (0-4) /hpf Hyaline Casts 8 H (0-2) /lpf Urine Mucus Many H (None) /hpf Diabetes panel 10/09/24 Range/Units 07:55 Sodium 137 (137-145) mmol/L Potassium 3.4 L (3.5-5.1) mmol/L Chloride 105 (98-107) mmol/L Carbon Dioxide 19 L (22-30) mmol/L BUN 4 L (7-17) mg/dL Creatinine 0.62 (0.52-1.04) mg/dL Glucose 96 (74-99) mg/dL Calcium 9.0 (8.4-10.2) mg/dL AST 28 (14-36) U/L ALT 20 (4-34) U/L Alkaline Phosphatase 87 (38-126) U/L Total Protein 7.2 (6.3-8.2) g/dL Albumin 4.0 (3.5-5.0) g/dL Calcium panel 10/09/24 Range/Units 07:55 Calcium 9.0 (8.4-10.2) mg/dL Albumin 4.0 (3.5-5.0) g/dL Pituitary panel 10/09/24 Range/Units 07:55 Sodium 137 (137-145) mmol/L Potassium 3.4 L (3.5-5.1) mmol/L Chloride 105 (98-107) mmol/L Carbon Dioxide 19 L (22-30) mmol/L BUN 4 L (7-17) mg/dL Creatinine 0.62 (0.52-1.04) mg/dL Glucose 96 (74-99) mg/dL Calcium 9.0 (8.4-10.2) mg/dL Adrenal panel 10/09/24 Range/Units 07:55 Sodium 137 (137-145) mmol/L Potassium 3.4 L (3.5-5.1) mmol/L Chloride 105 (98-107) mmol/L Carbon Dioxide 19 L (22-30) mmol/L BUN 4 L (7-17) mg/dL Creatinine 0.62 (0.52-1.04) mg/dL Glucose 96 (74-99) mg/dL Calcium 9.0 (8.4-10.2) mg/dL Total Bilirubin 1.5 H (0.2-1.3) mg/dL AST 28 (14-36) U/L ALT 20 (4-34) U/L Alkaline Phosphatase 87 (38-126) U/L Total Protein 7.2 (6.3-8.2) g/dL Albumin 4.0 (3.5-5.0) g/dL Assessment and Plan Plan: Left gluteal hidradenitis. Patient was to receive IV antibiotics. The patient's abscess was spontaneously draining. She will be observed.
[2024-10-09] MEDS ORDERED: MELATONIN 3 MG TABLET PO PRN (21:00)
--- NOTE | 2024-10-09 22:56 | P.CONS ---
History of Present Illness - Reason for Consult Consult date: 10/09/24 Gluteal abscess Requesting physician: Wilton Cam - Chief Complaint Gluteal area pain swelling x days - History of Present Illness Patient is a 29-year-old female with a past medical history significant for hypertension hypothyroidism pancreatitis history of skin soft tissue infection anxiety depression presenting to the hospital for evaluation of left gluteal area pain and swelling patient mention it started initially as a pimple that has gradually increased in size patient describing pain to the gluteal area to be sharp almost 10 out of 10 without any radiation with associated swelling redness but denies having any purulent drainage patient denies high-grade fever or chills also complaining of some lower abdominal pain nausea but no vomiting or diarrhea on presentation to the hospital patient was afebrile no fever have been recorded subsequently patient was nontachycardic hypotensive or hypoxic he did have a white count of 20,000 with a left shift c reatinine 0.62 liver enzymes are normal urine is mildly positive patient did have ultrasound of the affected area with evidence of fluid collection patient was started on vancomycin and Rocephin infectious disease was consulted for further management of antibiotic therapy Review of Systems Positive point and negatives has been mentioned in the HPI, complete review of systems was performed and all other systems are negative Past Medical History Past Medical History: Hypertension, Thyroid Disorder Additional Past Medical History / Comment(s): Hydradenitis suppertiva; Kidney stones, PANCREATITIS, low thyroid History of Any Multi-Drug Resistant Organisms: None Reported Past Surgical History: No Surgical Hx Reported Additional Past Surgical History / Comment(s): cyst removed from buttocks two years ago, cystoscopy with right ureteroscopy and holmium laser lithotripsy on 09/19/2020 Past Anesthesia/Blood Transfusion Reactions: No Reported Reaction Past Psychological History: Anxiety, Depression Smoking Status: Current every day smoker, Heavy tobacco smoker Past Alcohol Use History: Occasional Past Drug Use History: Marijuana Additional Drug Use History / Comment(s): 1/2 ppd. States she has a Miramet[employer] card. Reports she "tries not to smoke everyday. More like every other day". - Past Family History Mother Family Medical History: No Reported History Medications and Allergies Home Medications Medication Instructions Recorded Confirmed Type cloNIDine HCL [Catapres] 0.1 mg PO TID 30 Days #90 tab 06/22/24 10/09/24 Rx HYDROcodone/APAP 5-325MG [[place] 1 tab PO Q6HR PRN 3 Days #12 tab 08/03/24 10/09/24 Rx 5-325] Ondansetron Odt [Zofran Odt] 4 mg PO Q8HR PRN #15 tab 09/30/24 10/09/24 Rx Allergies Allergy/AdvReac Type Severity Reaction Status Date / Time No Known Allergies Allergy Verified 10/09/24 09:42 Physical Exam Vitals: Vital Signs Temp Pulse Pulse Resp BP BP Pulse Ox 10/09/24 20:12 73 10/09/24 19:57 98.4 F 73 16 113/72 100 10/09/24 15:40 98.2 F 92 16 133/68 98 10/09/24 15:12 94 18 130/90 97 10/09/24 09:21 97.9 F 94 16 123/75 98 10/09/24 06:45 105 H 20 130/86 96 10/09/24 05:25 98.5 F 141 H 20 137/92 96 Intake and Output 10/09/24 10/09/24 10/09/24 06:59 14:59 22:59 Intake Total 240 Balance 240 Intake: Oral 240 Other: Voiding Method Toilet # Voids 1 Weight 97.069 kg 97.069 kg GENERAL DESCRIPTION: Middle-age female lying in bed, no distress. No tachypnea or accessory muscle of respiration use. HEENT: Shows Pallor , no scleral icterus. Oral mucous membrane is dry. NECK: Trachea central, no thyromegaly. LUNGS: Unlabored breathing. Clear to auscultation anteriorly. No wheeze or crackle. HEART: S1, S2, regular rate and rhythm. No loud murmur ABDOMEN: Soft, no tenderness , guarding or rigidity, no organomegaly EXTREMITIES: No edema of feet. SKIN: Left gluteal area did have area of swelling induration small open area which was cultured NEUROLOGICAL: The patient is awake, alert, oriented x3, mood and affect normal. Results CBC & Chem 7: 10/09/24 05:39 10/09/24 07:55 Labs: Abnormal Lab Results - Last 24 Hours (Table) 10/09/24 10/09/24 10/09/24 Range/Units 05:39 05:39 07:55 WBC 20.0 H (3.8-10.6) k/uL Hgb 18.0 H (11.4-16.0) gm/dL Hct 51.1 H (34.0-46.0) % MCV 106.5 H (80.0-100.0) fL MCH 37.5 H (25.0-35.0) pg Neutrophils # 17.6 H (1.3-7.7) k/uL ESR (0-20) mm/Hr Potassium 3.4 L (3.5-5.1) mmol/L Carbon Dioxide 19 L (22-30) mmol/L BUN 4 L (7-17) mg/dL Plasma Lactic Acid Kartik 2.7 H* (0.7-2.0) mmol/L Total Bilirubin 1.5 H (0.2-1.3) mg/dL C-Reactive Protein (<1.0) mg/dL Urine Appearance (Clear) Urine Protein (Negative) Urine Ketones (Negative) Ur Leukocyte Esterase (Negative) Urine WBC (0-5) /hpf Ur Squamous Epith Cells (0-4) /hpf Hyaline Casts (0-2) /lpf Urine Mucus (None) /hpf 10/09/24 10/09/24 10/09/24 Range/Units 12:17 14:08 14:08 WBC (3.8-10.6) k/uL Hgb (11.4-16.0) gm/dL Hct (34.0-46.0) % MCV (80.0-100.0) fL MCH (25.0-35.0) pg Neutrophils # (1.3-7.7) k/uL ESR 28 H (0-20) mm/Hr Potassium (3.5-5.1) mmol/L Carbon Dioxide (22-30) mmol/L BUN (7-17) mg/dL Plasma Lactic Acid Kartik (0.7-2.0) mmol/L Total Bilirubin (0.2-1.3) mg/dL C-Reactive Protein 16.0 H (<1.0) mg/dL Urine Appearance Cloudy H (Clear) Urine Protein 1+ H (Negative) Urine Ketones 1+ H (Negative) Ur Leukocyte Esterase Moderate H (Negative) Urine WBC 6 H (0-5) /hpf Ur Squamous Epith Cells 19 H (0-4) /hpf Hyaline Casts 8 H (0-2) /lpf Urine Mucus Many H (None) /hpf Assessment and Plan (1) Abscess of buttock Current Visit: Yes Status: Acute Code(s): L02.31 - CUTANEOUS ABSCESS OF BUTTOCK SNOMED Code(s): 62655840 (2) Cellulitis Current Visit: Yes Status: Acute Code(s): L03.90 - CELLULITIS, UNSPECIFIED SNOMED Code(s): 936506649 Plan: 1patient presented to hospital with left gluteal area pain swelling and redness with evidence of an abscess in this patient who did have a history of previous MRSA skin soft tissue infection more likely related to MRSA gram-negative infection not entirely excluded 2-local culture have been obtained to guide further antibiotic therapy 3-vancomycin pharmacy to dose target trough of 15 while watching kidney function and Vanco trough closely We will follow on clinical condition and cultures to further adjust medication if needed Thank you for this consultation we will follow the patient along with you Dictation was produced using [employer] dictation software. please excuse any grammatical, word or spelling errors. Time with Patient: Greater than 30
[2024-10-10] MEDS: VANCOMYCIN 1,500 MG in SODIUM CHLORIDE 0.9% 500 ML 500 ML IVPB SCH (00:49)
[2024-10-10 05:21] LABS: Basophils % (A) 0 %; Eosinophils # (A) 0.3 k/uL (0-0.7); Eosinophils % (A) 2 %; HCT 47.3 % (34.0-46.0); HGB 15.7 gm/dL (11.4-16.0); Lymphocytes # (A) 1.7 k/uL (1.0-4.8); Lymphocytes % (A) 13 %; MCH 36.1 pg (25.0-35.0); MCHC 33.2 g/dL (31.0-37.0); MCV 108.9 fL (80.0-100.0); Macrocytosis Marked; Mean Platelet Volume 7.7; Monocytes # (A) 0.4 k/uL (0-1.0); Monocytes % (A) 3 %; Neutrophils # (A) 10.7 k/uL (1.3-7.7); Neutrophils % (A) 81 %; Platelet Count 258 k/uL (150-450); RBC 4.34 m/uL (3.80-5.40); RDW 14.6 % (11.5-15.5); WBC 13.2 k/uL (3.8-10.6)
[2024-10-10] MEDS: HYDROcodone/APAP 5-325MG 1 EACH TAB PO PRN (07:54)
[2024-10-10 08:12] VITALS: RESP 16
[2024-10-10 13:50] LABS: ALT 23 U/L (8-44); AST 49 U/L (13-35); Albumin 3.8 g/dL (3.8-4.9); Albumin/Globulin Ratio 1.31 Ratio (1.60-3.17); Alkaline Phosphatase 92 U/L (41-126); BUN/Creat Ratio 9.14 Ratio (12.00-20.00); Blood Urea Nitrogen 6.4 mg/dL (9.0-27.0); Calcium 8.9 mg/dL (8.7-10.3); Carbon Dioxide 19.3 mmol/L (21.6-31.8); Chloride 102 mmol/L (96-109); Globulin 2.9 g/dL (1.6-3.3); Glucose 91 mg/dL (70-110); Potassium 3.6 mmol/L (3.5-5.5); Sodium 139 mmol/L (135-145); Total Bilirubin 0.9 mg/dL (0.3-1.2); Total Protein 6.7 g/dL (6.2-8.2)
--- NOTE | 2024-10-10 13:59 | P.PN ---
Subjective Progress Note Date: 10/10/24 patient is a 29-year-old lady with past medical history significant for hypertension who came in the ER because of left gluteal swelling. Patient stated that she was all right 4 days back when she started noticing that there was a pimple on her left buttock. Patient noticed over the last couple of days the pimple started increasing in size and became as big in size of a golf ball, it was very painful, patient noticed discharge from the swelling. Patient also complaining of fever and chills at home. Patient also had nausea and vomiting. Patient denies any abdominal pain. There is no complaint of chest pain or shortness of breath. Patient did not see any medical help initially as she felt that it would heal on its own and was also reluctant to come to the hospital. Since the swelling kept increasing, patient decided to come to the ER Initial lab work done in the ER showed WBC 20, hemoglobin 18, platelet count 268, lactate 2.7, sodium 137, potassium 3.4, BUN 4, creatinine 0.62, glucose 96, bilirubin 1.5, AST 28, ALT 20, UA done showed moderate amount of leukocyte Estrace, urine WBC 6 Ultrasound soft tissue done showed subcutaneous edema with focal area of moving diabetes within a fluid collection suggesting abscess Patient admitted to internal medicine service 10/10. Patient seen and examined. Blood work from this morning showed WBC 13.2, hemoglobin 15.7, platelet count 258, sodium 139, potassium 3.6, BUN 6.4, creatinine 0.7. States pain in left buttock has improved. REVIEW OF SYSTEMS: CONSTITUTIONAL: No fever, no malaise,. CARDIOVASCULAR: No chest pain, no palpitations, no syncope. PULMONARY: No shortness of breath, no cough, GASTROINTESTINAL: No diarrhea, no nausea, no vomiting, no abdominal pain. NEUROLOGICAL: No headaches, no weakness, PHYSICAL EXAMINATION: GENERAL: The patient is alert and oriented x3, not in any acute distress. Well developed, well nourished. HEENT: Pupils are round and equally reacting to light. EOMI. No scleral icterus. No conjunctival pallor. Normocephalic, atraumatic. No pharyngeal erythema. No thyromegaly. CARDIOVASCULAR: S1 and S2 present. No murmurs, rubs, or gallops. PULMONARY: Chest is clear to auscultation, no wheezing or crackles. ABDOMEN: Soft, nontender, nondistended, normoactive bowel sounds. No palpable or ganomegaly. MUSCULOSKELETAL: No joint swelling or deformity. EXTREMITIES: No cyanosis, clubbing, or pedal edema. NEUROLOGICAL: Gross neurological examination did not reveal any focal deficits. SKIN: Left gluteal swelling, erythema noticeable, 5.6 cm in size, tender Assessment and plan Sepsis Left gluteal abscess Lactic acidosis Hypertension Monitor vital signs Monitor CBC Monitor CMP Follow-up on blood cultures Follow-up on wound cultures Continue IV Rocephin, vancomycin ID following General Surgery following Labs and medication were reviewed.. Continue same treatment. Continue with s ymptomatic treatment. Resume home medication. Monitor labs and vitals. DVT and GI prophylaxis. Further recommendations as per clinical course of the patient Dictation was produced using [employer] dictation software. please excuse any grammatical, word or spelling errors. Objective - Vital Signs Vital signs: Vital Signs Temp 97.8 F 10/10/24 07:20 Pulse 73 10/10/24 07:20 Resp 16 10/10/24 07:20 BP 113/67 10/10/24 07:20 Pulse Ox 99 10/10/24 07:20 FiO2 Intake & Output 10/09/24 10/10/24 10/10/24 18:59 06:59 18:59 Intake Total 240 Balance 240 Weight 97.069 kg Intake: Oral 240 Other: Voiding Method Toilet # Voids 1 - Labs CBC & Chem 7: 10/10/24 04:23 10/10/24 04:23 Labs: Abnormal Lab Results - Last 24 Hours (Table) 10/09/24 10/09/24 10/10/24 Range/Units 14:08 14:08 04:23 WBC 13.2 H (3.8-10.6) k/uL Hct 47.3 H (34.0-46.0) % MCV 108.9 H (80.0-100.0) fL MCH 36.1 H (25.0-35.0) pg Neutrophils # 10.7 H (1.3-7.7) k/uL Macrocytosis Marked A ESR 28 H (0-20) mm/Hr Carbon Dioxide (21.6-31.8) mmol/L Anion Gap (4.00-12.00) mmol/L BUN (9.0-27.0) mg/dL BUN/Creatinine Ratio (12.00-20.00) Ratio AST (13-35) U/L C-Reactive Protein 16.0 H (<1.0) mg/dL Albumin/Globulin Ratio (1.60-3.17) Ratio 10/10/24 Range/Units 04:23 WBC (3.8-10.6) k/uL Hct (34.0-46.0) % MCV (80.0-100.0) fL MCH (25.0-35.0) pg Neutrophils # (1.3-7.7) k/uL Macrocytosis ESR (0-20) mm/Hr Carbon Dioxide 19.3 L (21.6-31.8) mmol/L Anion Gap 17.70 H (4.00-12.00) mmol/L BUN 6.4 L (9.0-27.0) mg/dL BUN/Creatinine Ratio 9.14 L (12.00-20.00) Ratio AST 49 H (13-35) U/L C-Reactive Protein (<1.0) mg/dL Albumin/Globulin Ratio 1.31 L (1.60-3.17) Ratio Microbiology - Last 24 Hours (Table) 10/09/24 14:30 Gram Stain - Preliminary Buttock Wound Culture - Preliminary
--- NOTE | 2024-10-10 14:12 | P.PN ---
Subjective Progress Note Date: 10/10/24 SURGICAL PROGRESS NOTE CHIEF COMPLAINT: Left buttock abscess HISTORY OF PRESENT ILLNESS: Patient continues to have pain in that left buttock abscess. She reports there was some drainage yesterday after she sat on it. Drainage has been intermittent. Afebrile. WBC is down from 20-13.2. Culture pending Patient seen and examined with Dr. Kerns PHYSICAL EXAM: VITAL SIGNS: Reviewed. GENERAL: Well-developed in no acute distress. SKIN: Left gluteal area with erythema, induration. Area is firm. No definite abscess palpated. ASSESSMENT: 1. Left gluteal hidradenitis PLAN: -Continue IV antibiotics -Patient's abscess was spontaneously draining -No surgical intervention planned -Continue to monitor Physician Home Care Companion note has been reviewed by physician. Signing provider agrees with the documented findings, assessment, and plan of care. Objective - Vital Signs Vital signs: Vital Signs Temp 97.8 F 10/10/24 07:20 Pulse 73 10/10/24 07:20 Resp 16 10/10/24 07:20 BP 113/67 10/10/24 07:20 Pulse Ox 99 10/10/24 07:20 FiO2 Intake & Output 10/09/24 10/10/24 10/10/24 18:59 06:59 18:59 Intake Total 240 Balance 240 Weight 97.069 kg Intake: Oral 240 Other: Voiding Method Toilet # Voids 1 - Labs CBC & Chem 7: 10/10/24 04:23 10/10/24 04:23 Labs: Abnormal Lab Results - Last 24 Hours (Table) 10/09/24 10/09/24 10/10/24 Range/Units 14:08 14:08 04:23 WBC 13.2 H (3.8-10.6) k/uL Hct 47.3 H (34.0-46.0) % MCV 108.9 H (80.0-100.0) fL MCH 36.1 H (25.0-35.0) pg Neutrophils # 10.7 H (1.3-7.7) k/uL Macrocytosis Marked A ESR 28 H (0-20) mm/Hr Carbon Dioxide (21.6-31.8) mmol/L Anion Gap (4.00-12.00) mmol/L BUN (9.0-27.0) mg/dL BUN/Creatinine Ratio (12.00-20.00) Ratio AST (13-35) U/L C-Reactive Protein 16.0 H (<1.0) mg/dL Albumin/Globulin Ratio (1.60-3.17) Ratio 10/10/24 Range/Units 04:23 WBC (3.8-10.6) k/uL Hct (34.0-46.0) % MCV (80.0-100.0) fL MCH (25.0-35.0) pg Neutrophils # (1.3-7.7) k/uL Macrocytosis ESR (0-20) mm/Hr Carbon Dioxide 19.3 L (21.6-31.8) mmol/L Anion Gap 17.70 H (4.00-12.00) mmol/L BUN 6.4 L (9.0-27.0) mg/dL BUN/Creatinine Ratio 9.14 L (12.00-20.00) Ratio AST 49 H (13-35) U/L C-Reactive Protein (<1.0) mg/dL Albumin/Globulin Ratio 1.31 L (1.60-3.17) Ratio Microbiology - Last 24 Hours (Table) 10/09/24 14:30 Gram Stain - Preliminary Buttock Wound Culture - Preliminary
[2024-10-10 15:30] VITALS: BP 127/78; PULSE 91; TEMP 98
--- NOTE | 2024-10-10 17:01 | P.PN ---
Subjective Progress Note Date: 10/10/24 Principal diagnosis: Reason for follow-up is left gluteal abscess cellulitis Patient is a 29-year-old female with a past medical history significant for hypertension hypothyroidism pancreatitis history of skin soft tissue infection anxiety depression presenting to the hospital for evaluation of left gluteal area pain and swelling patient did have ultrasound suggestive of possible abscess evaluated by general surgery recommending medical treatment. On today's evaluation that is 10/10/2024,the patient denies any fever or any chills, patient is breathing comfortably on room air, the patient denies chest pain shortness of breath and no significant cough, patient denies abdominal pain, no nausea vomiting or diarrhea. Still complaining of pain to the left gluteal area slightly decreased intensity. Patient white count is 13.2, creatinine 0.7 cultures currently pending Objective - Vital Signs Vital signs: Vital Signs Temp 97.8 F 10/10/24 07:20 Pulse 73 10/10/24 07:20 Resp 16 10/10/24 07:20 BP 113/67 10/10/24 07:20 Pulse Ox 99 10/10/24 07:20 FiO2 Intake & Output 10/09/24 10/10/24 10/10/24 18:59 06:59 18:59 Intake Total 240 Balance 240 Weight 97.069 kg Intake: Oral 240 Other: Voiding Method Toilet # Voids 1 - Exam Middle-age female lying in bed in no distress Unlabored breathing Awake alert oriented - Labs CBC & Chem 7: 10/10/24 04:23 10/10/24 04:23 Labs: Abnormal Lab Results - Last 24 Hours (Table) 10/09/24 10/09/24 10/10/24 Range/Units 14:08 14:08 04:23 WBC 13.2 H (3.8-10.6) k/uL Hct 47.3 H (34.0-46.0) % MCV 108.9 H (80.0-100.0) fL MCH 36.1 H (25.0-35.0) pg Neutrophils # 10.7 H (1.3-7.7) k/uL Macrocytosis Marked A ESR 28 H (0-20) mm/Hr C-Reactive Protein 16.0 H (<1.0) mg/dL Microbiology - Last 24 Hours (Table) 10/09/24 14:30 Gram Stain - Preliminary Buttock Wound Culture - Preliminary Assessment and Plan (1) Abscess of buttock Current Visit: Yes Status: Acute Code(s): L02.31 - CUTANEOUS ABSCESS OF BUTTOCK SNOMED Code(s): 08449766 (2) Cellulitis Current Visit: Yes Status: Acute Code(s): L03.90 - CELLULITIS, UNSPECIFIED SNOMED Code(s): 307180061 Plan: 1patient presented to hospital with left gluteal area pain swelling and redness with evidence of an abscess in this patient who did have a history of previous MRSA skin soft tissue infection more likely related to MRSA gram-negative infection not entirely excluded 2-local culture have been obtained which are currently pending 3-patient will be treated with vancomycin pharmacy to dose target trough of 15 while waiting for culture finalized to date main discharged antibiotics Dictation was produced using [employer] dictation software. please excuse any grammatical, word or spelling errors. Time with Patient: Less than 30
[2024-10-11] MEDS ORDERED: VANCOMYCIN TROUGH DUE 1 EACH MISC MISCELLANE ONE (07:00)
--- NOTE | 2024-10-12 09:27 | P.DS ---
Providers Date of admission: 10/09/24 10:48 Expected date of discharge: 10/11/24 Attending physician: Wilton Cam MD Consults: 10/09/24 10:43 Consult Physician Urgent Consulting Provider: Michelet Kerns Consult Reason/Comments: left glut acbess Do you want consulting provider notified?: Yes 10/09/24 13:49 Consult Physician Routine Consulting Provider: Walt Arreola Consult Reason/Comments: Gluteal abscess Do you want consulting provider notified?: Yes Primary care physician: [facility] Hospital Course: Discharge diagnoses; Sepsis Left gluteal abscess Lactic acidosis Hypertension Hospital course; patient is a 29-year-old lady with past medical history significant for hypertension who came in the ER because of left gluteal swelling. Patient stated that she was all right 4 days back when she started noticing that there was a pimple on her left buttock. Patient noticed over the last couple of days the pimple started increasing in size and became as big in size of a golf ball, it was very painful, patient noticed discharge from the swelling. Patient also complaining of fever and chills at home. Patient also had nausea and vomiting. Patient denies any abdominal pain. There is no complaint of chest pain or shortness of breath. Patient did not see any medical help initially as she felt that it would heal on its own and was also reluctant to come to the hospital. Since the swelling kept increasing, patient decided to come to the ER Initial lab work done in the ER showed WBC 20, hemoglobin 18, platelet count 268, lactate 2.7, sodium 137, potassium 3.4, BUN 4, creatinine 0.62, glucose 96, bilirubin 1.5, AST 28, ALT 20, UA done showed moderate amount of leukocyte Estrace, urine WBC 6 Ultrasound soft tissue done showed subcutaneous edema with focal area of moving diabetes within a fluid collection suggesting abscess Patient admitted to internal medicine service 10/10. Patient seen and examined. Blood work from this morning showed WBC 13.2, hemoglobin 15.7, platelet count 258, sodium 139, potassium 3.6, BUN 6.4, creatinine 0.7. States pain in left buttock has improved. Surgery evaluated patient, recommended no surgical intervention as abscess is draining on its own. ID recommend condition of IV antibiotics but patient at this time states that she has to go home and take care of her kids, discussed with infectious disease, they recommended starting patient on Bactrim for 10 days PHYSICAL EXAMINATION: GENERAL: The patient is alert and oriented x3, not in any acute distress. Well developed, well nourished. HEENT: Pupils are round and equally reacting to light. EOMI. No scleral icterus. No conjunctival pallor. Normocephalic, atraumatic. No pharyngeal erythema. No thyromegaly. CARDIOVASCULAR: S1 and S2 present. No murmurs, rubs, or gallops. PULMONARY: Chest is clear to auscultation, no wheezing or crackles. ABDOMEN: Soft, nontender, nondistended, normoactive bowel sounds. No palpable organomegaly. MUSCULOSKELETAL: No joint swelling or deformity. EXTREMITIES: No cyanosis, clubbing, or pedal edema. NEUROLOGICAL: Gross neurological examination did not reveal any focal deficits. SKIN: Left gluteal swelling, erythema noticeable, 5.6 cm in size, tender Dictation was produced using [employer] dictation software. please excuse any grammatical, word or spelling errors. Patient Condition at Discharge: Stable Plan - Discharge Summary New Discharge Prescriptions: New Sulfamethox-Tmp 800-160Mg [Bactrim DS 800-160 mg] 1 tab PO Q12HR 10 Days #20 tab Continue HYDROcodone/APAP 5-325MG [[place] 5-325] 1 tab PO Q6HR PRN 3 Days #12 tab PRN Reason: Pain Ondansetron Odt [Zofran ODT] 4 mg PO Q8HR PRN #15 tab PRN Reason: Nausea And Vomiting cloNIDine HCL [Catapres] 0.1 mg PO TID 30 Days #90 tab Discharge Medication List cloNIDine HCL [Catapres] 0.1 mg PO TID 30 Days #90 tab 06/22/24 [Rx] HYDROcodone/APAP 5-325MG [[place] 5-325] 1 tab PO Q6HR PRN 3 Days #12 tab 08/03/24 [Rx] Ondansetron Odt [Zofran ODT] 4 mg PO Q8HR PRN #15 tab 09/30/24 [Rx] Sulfamethox-Tmp 800-160Mg [Bactrim DS 800-160 mg] 1 tab PO Q12HR 10 Days #20 tab 10/10/24 [Rx] Follow up Appointment(s)/Referral(s): Tiara Pollock MD [Primary Care Provider] - 1-2 days Walt Arreola MD [STAFF PHYSICIAN] - 1 Week Patient Instructions/Handouts: Cellulitis (GEN), Abscess (GEN) Activity/Diet/Wound Care/Special Instructions: Activity limited until follow-up Follow-up with primary care provider on discharge Follow-up with infectious disease Continue taking antibiotics until finished If having any increasing fever, pain, swelling redness or drainage please call 911 or local ER Discharge Disposition: HOME SELF-CARE
== END 2024-10-10 17:12 | disposition home or self-care (01) ==
LOC: EC 05:24 → 6NMEDSUR 10:48
PROVIDERS: ADMIT Internal Medicine; ATTEND Internal Medicine
DX: A41.9 Sepsis, unspecified organism (principal); L02.31 Cutaneous abscess of buttock; L73.2 Hidradenitis suppurativa; E87.20 Acidosis, unspecified; I10 Essential (primary) hypertension; F32.A Depression, unspecified; F41.9 Anxiety disorder, unspecified; E03.9 Hypothyroidism, unspecified; F17.200 Nicotine dependence, unspecified, uncomplicated; Z79.899 Other long term (current) drug therapy
CPT/HCPCS: 96376 ×3; 96365 ×2; 96366 ×2; 96367; 96375; 99285; 36415; 80053 ×2; 85652; 82150; 83605; 83690; 85025 ×2; 86140; 81001; 81025; 87040; 87070; 87205; 84145; 76882; G0378 ×2; J3370 ×2; J2270 ×3; J1200; J2765; J2405; J0696; J1885; J0736; 87077; 87186

== ENCOUNTER 2024-10-21 09:20 | Inpatient (IN) | payer OTHER ==
[2024-10-21 10:30] LABS: Basophils % (A) 0 %; Eosinophils # (A) 0.3 k/uL (0-0.7); Eosinophils % (A) 3 %; HCT 47.3 % (34.0-46.0); Lymphocytes # (A) 1.2 k/uL (1.0-4.8); Lymphocytes % (A) 13 %; MCH 37.5 pg (25.0-35.0); MCHC 35.9 g/dL (31.0-37.0); MCV 104.4 fL (80.0-100.0); Macrocytosis Moderate; Mean Platelet Volume 7.6; Monocytes # (A) 0.3 k/uL (0-1.0); Monocytes % (A) 3 %; Neutrophils # (A) 7.1 k/uL (1.3-7.7); Neutrophils % (A) 80 %; Platelet Count 233 k/uL (150-450); RBC 4.53 m/uL (3.80-5.40)
[2024-10-21 10:43] LABS: ALT 85 U/L (4-34); AST 112 U/L (14-36); African American GFR (CKD) >90 (>60 ml/min/1.73 sqM); Albumin 4.4 g/dL (3.5-5.0); Alkaline Phosphatase 93 U/L (38-126); Amylase 222 U/L (30-110); Anion Gap 14 mmol/L; Blood Urea Nitrogen 7 mg/dL (7-17); Calcium 9.5 mg/dL (8.4-10.2); Carbon Dioxide 21 mmol/L (22-30); Chloride 104 mmol/L (98-107); Glucose 94 mg/dL (74-99); Lipase 1644 U/L (23-300); Non-African American GFR(CKD) >90 (>60 ml/min/1.73 sqM); Potassium 3.5 mmol/L (3.5-5.1); Sodium 139 mmol/L (137-145); Total Bilirubin 1.2 mg/dL (0.2-1.3); Total Protein 7.8 g/dL (6.3-8.2)
[2024-10-21 11:18] LABS: Amorphous Sediment,Urine Rare /hpf; Appearance,Urine Clear (Clear); Bilirubin,Urine Negative (Negative); Blood,Urine Negative (Negative); Color,Urine Yellow; Glucose,Urine (UA) Negative (Negative); Ketones,Urine 1+ (Negative); Leukocyte Esterase,Urine Negative (Negative); Mucus,Urine Occasional /hpf; Nitrite,Urine Negative (Negative); Protein,Urine 1+ (Negative); RBC,Urine 1 /hpf (0-5); Specific Gravity,Urine 1.028 (1.001-1.035); Squamous Epithelial Cell,Urine 2 /hpf (0-4); WBC,Urine 1 /hpf (0-5)
--- NOTE | 2024-10-21 11:25 | ED ---
Abdominal Pain HPI - General Chief Complaint: Abdominal Pain Stated Complaint: Abd pain Time Seen by Provider: 10/21/24 11:21 Source: patient, EMS, RN notes reviewed Mode of arrival: EMS Limitations: no limitations - History of Present Illness Initial Comments: 29-year-old female presented to ER for evaluation of abdominal pain. Patient states since yesterday she has been having an upper abdominal pain with radiation to her back. She is currently rating the pain a 10 out of 10 pain is extremely sharp in nature. She admits to a history of pancreatitis and states this feels similar. Patient reports she did consume a pint of alcohol the day prior to pain starting. She also admits to nausea, vomiting and diarrhea. She denies any hematic emesis, coffee ground emesis, hematochezia. Patient admits to dark stool. No blood thinners. No history of GI bleeds. Patient denies any fevers or chills. She attempted to take 2 Aleve for pain control at home without relief. Patient denies any urinary complaints. Patient does states she is currently taking Bactrim for cellulitis as she was recently admitted for this. No other complaints at this time. - Related Data Home Medications Medication Instructions Recorded Confirmed Pantoprazole Sodium [Protonix] 40 mg PO DAILY PRN 10/21/24 10/21/24 Previous Rx's Medication Instructions Recorded cloNIDine HCL [Catapres] 0.1 mg PO TID 30 Days #90 tab 06/22/24 Ondansetron Odt [Zofran ODT] 4 mg PO Q8HR PRN #15 tab 09/30/24 Sulfamethox-Tmp 800-160Mg [Bactrim 1 tab PO Q12HR 10 Days #20 tab 10/10/24 DS 800-160 mg] Allergies Allergy/AdvReac Type Severity Reaction Status Date / Time No Known Allergies Allergy Verified 10/21/24 13:03 Review of Systems ROS Statement: Those systems with pertinent positive or pertinent negative responses have been documented in the HPI. ROS Other: All systems not noted in ROS Statement are negative. Past Medical History Past Medical History: Hypertension, Thyroid Disorder Additional Past Medical History / Comment(s): Hydradenitis suppertiva; Kidney stones, PANCREATITIS History of Any Multi-Drug Resistant Organisms: MRSA Date of last positivie culture/infection: 10/09/24 MDRO Source:: buttock Past Surgical History: No Surgical Hx Reported Additional Past Surgical History / Comment(s): cyst removed from buttocks two years ago, cystoscopy with right ureteroscopy and holmium laser lithotripsy on 09/19/2020 Past Anesthesia/Blood Transfusion Reactions: No Reported Reaction Past Psychological History: Anxiety, Depression Smoking Status: Current every day smoker, Heavy tobacco smoker Past Alcohol Use History: Heavy, Occasional Past Drug Use History: Marijuana - Past Family History Mother Family Medical History: No Reported History General Exam Limitations: no limitations General appearance: alert, in no apparent distress, anxious Respiratory exam: Present: normal lung sounds bilaterally. Absent: respiratory distress, wheezes, rales, rhonchi, stridor Cardiovascular Exam: Present: normal rhythm, tachycardia, normal heart sounds GI/Abdominal exam: Present: soft, tenderness (Bilateral upper quadrant), normal bowel sounds Neurological exam: Present: alert, oriented X3, CN II-XII intact Skin exam: Present: warm, dry, intact, normal color, other (See erythema noted to left inner buttock. There is no purulent drainage, tenderness or abscess.). Absent: rash Course Vital Signs 10/21/24 10/21/24 09:22 11:32 Temperature 98.2 F Pulse Rate 108 H 92 Respiratory 24 20 Rate Blood Pressure 166/118 139/116 O2 Sat by Pulse 98 100 Oximetry - Reevaluation(s) Reevaluation #1: 10/21/24 12:[address] Gaffney, [facility], for admission. Medical Decision Making - Medical Decision Making Was pt. sent in by a medical professional or institution (, PA, COD CLERK, urgent care, hospital, or half-way...) When possible be specific @ -No Did you speak to anyone other than the patient for history (EMS, parent, family, police, friend...)? What history was obtained from this source @ -No Did you review nursing and triage notes (agree or disagree)? Why? @ -I reviewed and agree with nursing and triage notes Were old charts reviewed (outside hosp., previous admission, EMS record, old EKG, old radiological studies, urgent care reports/EKG's, half-way records)? Report findings @ -Prior admission for gluteal cellulitis patient discharged on Bactrim. Differential Diagnosis (chest pain, altered mental status, abdominal pain women, abdominal pain men, vaginal bleeding, weakness, fever, dyspnea, syncope, headache, dizziness, GI bleed, back pain, seizure, CVA, palpatations, mental health, musculoskeletal)? @ -Differential Abdominal Pain Women: Appendicitis, Cholecystitis, diverticulosis, ischemic bowel, pancreatitis, hepatitis, UTI, gastroenteritis, AAA, incarcerated hernia, bowel obstruction, constipation, inflammatory bowel, hepatitis, peptic ulcer disease, splenic infarction, perforated viscus, vulvitis, ovarian torsion, PID, kidney stone, placenta abruption, this is not meant to be an all-inclusive list EKG interpreted by me (3pts min.). @ -None done X-rays interpreted by me (1pt min.). @ -None done CT interpreted by me (1pt min.). @ -CT abdomen pelvis showing findings consistent with severe but uncomplicated and acute interstitial edematous pancreatitis. Reactive duodenitis. U/S interpreted by me (1pt. min.). @ -None done What testing was considered but not performed or refused? (CT, X-rays, U/S, labs)? Why? @ -None What meds were considered but not given or refused? Why? @ -None Did you discuss the management of the patient with other professionals (professionals i.e. , PA, COD CLERK, lab, RT, psych nurse, social work specialist, child day care teacher, teacher, chief scientific officer, case checker)? Give summary @ -Yes, admission discussed with Dr. Yeimy JOHNSON. Was smoking cessation discussed for >3mins.? @ -No Was critical care preformed (if so, how long)? @ -No Were there social determinants of health that impacted care today? How? (Homelessness, low income, unemployed, alcoholism, drug addiction, transporta tion, low edu. Level, literacy, decrease access to med. care, penitentiary, rehab)? @ -No Was there de-escalation of care discussed even if they declined (Discuss DNR or withdrawal of care, Hospice)? DNR status @ -No What co-morbidities impacted this encounter? (DM, HTN, Smoking, COPD, CAD, Cancer, CVA, ARF, Chemo, Hep., AIDS, mental health diagnosis, sleep apnea, morbid obesity)? @ -None Was patient admitted / discharged? Hospital course, mention meds given and route, prescriptions, significant lab abnormalities, going to OR and other pertinent info. @ -Admitted. 29-year-old female presented the ER for evaluation of abdominal pain. Patient originally seen at a quick note where laboratory studies was obtained. Upon rooming, history and physical exam completed. Patient is hypertensive with a blood pressure of 139/116. Patient did not take antihypertensive medication this morning. Pain may also be elevating this. There is focal upper abdominal tenderness to palpation. Normal bowel sounds with no rebound or guarding. Laboratory studies showed macrocytosis and elevated lipase 1644, amylase 222. Lactic 1.2. WBC 9.0. Urinalysis concerning of dehydration with 1+ ketones and 1+ proteins likely due to nausea vomiting. Urine hCG negative. CT abdomen pelvis showing severe but uncomplicated pancreatitis. Patient given symptomatic control in the ER with IV fluids, Torad ol, Zofran, Reglan and Dilaudid along with IV fluids. Given pancreatitis and patient's pain, admission was considered and accepted by Dr. Gaffney, [facility]. Patient agreeable for admission. Case discussed with ED attending of Dr. Hall. Undiagnosed new problem with uncertain prognosis? @ -No Drug Therapy requiring intensive monitoring for toxicity (Heparin, Nitro, Insulin, Cardizem)? @ -No Were any procedures done? @ -No Diagnosis/symptom? @ -Pancreatitis Acute, or Chronic, or Acute on Chronic? @ -Acute Uncomplicated (without systemic symptoms) or Complicated (systemic symptoms)? @ -Complicated Side effects of treatment? @ -No Exacerbation, Progression, or Severe Exacerbation? @ -No Poses a threat to life or bodily function? How? (Chest pain, [place], GA, pneumonia, PE, COPD, DKA, ARF, appy, cholecystitis, CVA, Diverticulitis, Homicidal, Suicidal, threat to staff... and all critical care pts) @ -Yes - Lab Data Result diagrams: 10/21/24 09:50 10/21/24 09:50 Lab Results 10/21/24 10/21/24 10/21/24 Range/Units 09:50 09:50 09:50 WBC 9.0 (3.8-10.6) k/uL RBC 4.53 (3.80-5.40) m/uL Hgb 17.0 H (11.4-16.0) gm/dL Hct 47.3 H (34.0-46.0) % MCV 104.4 H (80.0-100.0) fL MCH 37.5 H (25.0-35.0) pg MCHC 35.9 (31.0-37.0) g/dL RDW 15.0 (11.5-15.5) % Plt Count 233 (150-450) k/uL MPV 7.6 Neutrophils % 80 % Lymphocytes % 13 % Monocytes % 3 % Eosinophils % 3 % Basophils % 0 % Neutrophils # 7.1 (1.3-7.7) k/uL Lymphocytes # 1.2 (1.0-4.8) k/uL Monocytes # 0.3 (0-1.0) k/uL Eosinophils # 0.3 (0-0.7) k/uL Basophils # 0.0 (0-0.2) k/uL Macrocytosis Moderate Sodium 139 (137-145) mmol/L Potassium 3.5 (3.5-5.1) mmol/L Chloride 104 (98-107) mmol/L Carbon Dioxide 21 L (22-30) mmol/L Anion Gap 14 mmol/L BUN 7 (7-17) mg/dL Creatinine 0.78 (0.52-1.04) mg/dL Est GFR (CKD-EPI)AfAm >90 (>60 ml/min/1.73 sqM) Est GFR (CKD-EPI)NonAf >90 (>60 ml/min/1.73 sqM) Glucose 94 (74-99) mg/dL Plasma Lactic Acid Kartik 1.2 (0.7-2.0) mmol/L Calcium 9.5 (8.4-10.2) mg/dL Total Bilirubin 1.2 (0.2-1.3) mg/dL AST 112 H (14-36) U/L ALT 85 H (4-34) U/L Alkaline Phosphatase 93 (38-126) U/L Total Protein 7.8 (6.3-8.2) g/dL Albumin 4.4 (3.5-5.0) g/dL Amylase 222 H (30-110) U/L Lipase 1644 H (23-300) U/L Urine Color Urine Appearance (Clear) Urine pH (5.0-8.0) Ur Specific [place] (1.001-1.035) Urine Protein (Negative) Urine Glucose (UA) (Negative) Urine Ketones (Negative) Urine Blood (Negative) Urine Nitrite (Negative) Urine Bilirubin (Negative) Urine Urobilinogen (<2.0) mg/dL Ur Leukocyte Esterase (Negative) Urine RBC (0-5) /hpf Urine WBC (0-5) /hpf Ur Squamous Epith Cells (0-4) /hpf Amorphous Sediment (None) /hpf Urine Mucus (None) /hpf Urine HCG, Qual (Not Detectd) 10/21/24 10/21/24 Range/Units 09:50 09:50 WBC (3.8-10.6) k/uL RBC (3.80-5.40) m/uL Hgb (11.4-16.0) gm/dL Hct (34.0-46.0) % MCV (80.0-100.0) fL MCH (25.0-35.0) pg MCHC (31.0-37.0) g/dL RDW (11.5-15.5) % Plt Count (150-450) k/uL MPV Neutrophils % % Lymphocytes % % Monocytes % % Eosinophils % % Basophils % % Neutrophils # (1.3-7.7) k/uL Lymphocytes # (1.0-4.8) k/uL Monocytes # (0-1.0) k/uL Eosinophils # (0-0.7) k/uL Basophils # (0-0.2) k/uL Macrocytosis Sodium (137-145) mmol/L Potassium (3.5-5.1) mmol/L Chloride (98-107) mmol/L Carbon Dioxide (22-30) mmol/L Anion Gap mmol/L BUN (7-17) mg/dL Creatinine (0.52-1.04) mg/dL Est GFR (CKD-EPI)AfAm (>60 ml/min/1.73 sqM) Est GFR (CKD-EPI)NonAf (>60 ml/min/1.73 sqM) Glucose (74-99) mg/dL Plasma Lactic Acid Kartik (0.7-2.0) mmol/L Calcium (8.4-10.2) mg/dL Total Bilirubin (0.2-1.3) mg/dL AST (14-36) U/L ALT (4-34) U/L Alkaline Phosphatase (38-126) U/L Total Protein (6.3-8.2) g/dL Albumin (3.5-5.0) g/dL Amylase (30-110) U/L Lipase (23-300) U/L Urine Color Yellow Urine Appearance Clear (Clear) Urine pH 8.0 (5.0-8.0) Ur Specific [place] 1.028 (1.001-1.035) Urine Protein 1+ H (Negative) Urine Glucose (UA) Negative (Negative) Urine Ketones 1+ H (Negative) Urine Blood Negative (Negative) Urine Nitrite Negative (Negative) Urine Bilirubin Negative (Negative) Urine Urobilinogen 3.0 (<2.0) mg/dL Ur Leukocyte Esterase Negative (Negative) Urine RBC 1 (0-5) /hpf Urine WBC 1 (0-5) /hpf Ur Squamous Epith Cells 2 (0-4) /hpf Amorphous Sediment Rare H (None) /hpf Urine Mucus Occasional H (None) /hpf Urine HCG, Qual Not Detected (Not Detectd) - Radiology Data Radiology results: report reviewed, image reviewed Disposition Clinical Impression: Pancreatitis Disposition: ADMITTED IP TO THIS [facility] Condition: Stable Time of Disposition: 12:37
[2024-10-21] MEDS: HYDROmorphone 0.5 MG/0.5 ML SYRINGE IVP STA (11:33)
[2024-10-21] MEDS: KETOROLAC 15 MG/ML 1 ML VIAL IVP STA (11:33)
[2024-10-21] MEDS: ONDANSETRON 4 MG/2 ML VIAL IVP STA (11:34)
[2024-10-21] MEDS: SODIUM CHLORIDE 0.9% 1,000 ML IV ONE (11:39)
--- NOTE | 2024-10-21 12:20 | CT ---
EXAMINATION TYPE: CT abdomen pelvis w con DATE OF EXAM: 10/21/2024 COMPARISON: Prior CT 3 weeks ago CLINICAL INDICATION: Female, 29 years old with history of abd pain elevated lipase, ABDOMINAL PAIN, TECHNIQUE: CT scan of the abdomen and pelvis is performed with IV Contrast, patient injected with 95ML mL of Iso jim 300., (none if empty) Oral contrast used: without Oral Contrast (none if empty) CT DLP: 1352.6 mGycm, Automated exposure control for dose reduction was used. FINDINGS: LUNG BASES: No significant abnormality is appreciated. LIVER/GB: Liver is heterogeneously hypodense consistent with diffuse fatty infiltrative hepatocellula r disease. PANCREAS: There is new moderate to severe ill-defined fluid and fat stranding surrounding the pancrea s most prominent in the pancreatic head region extending inferiorly. No well-formed fluid collection identified. No areas of nonenhancement clearly seen. No ductal dilatation. SPLEEN: No significant abnormality is seen. ADRENALS: No significant abnormality is seen. KIDNEYS: No significant abnormality is seen. BOWEL: Wall thickening of the second and third portion of duodenal sweep which is surrounded by ill d efined fluid. No abnormal small or large bowel dilatation UTERUS/ADNEXA: No gross abnormality seen. LYMPH NODES: No greater than 1cm abdominal or pelvic lymph nodes are appreciated. OSSEOUS STRUCTURES: No significant abnormality is seen. OTHER: No significant additional abnormality is seen. IMPRESSION: Findings consistent with fairly severe but uncomplicated acute interstitial edematous jessica creatitis. There is reactive duodenitis. [facility], , 10/21/2024 12:18 PM
[2024-10-21] MEDS ORDERED: NALOXONE 0.4 MG/ML 1 ML VIAL IV PRN (12:37)
[2024-10-21] MEDS ORDERED: ACETAMINOPHEN TAB 325 MG TAB PO PRN (12:37)
[2024-10-21] MEDS: METOCLOPRAMIDE 5 MG/ML 2 ML VIAL IVP STA (12:51)
[2024-10-21] MEDS: HYDROmorphone 1 MG/ML 1 ML SYRINGE IVP STA (12:51)
[2024-10-21] MEDS: SODIUM CHLORIDE 0.9% 1,000 ML IV SCH (12:54)
[2024-10-21] MEDS: HYDROmorphone 1 MG/ML 1 ML SYRINGE IVP PRN (16:30)
[2024-10-21] MEDS ORDERED: LORazepam 2 MG/ML INJ IV PRN ×2 (16:42)
[2024-10-21] MEDS ORDERED: HYDROmorphone 0.5 MG/0.5 ML SYRINGE IVP PRN (16:45)
--- NOTE | 2024-10-21 17:02 | XR ---
EXAMINATION TYPE: XR chest 1V portable DATE OF EXAM: 10/21/2024 4:56 PM COMPARISON: Chest radiographs from 06/18/2024. CLINICAL INDICATION: Female, 29 years old with history of chf; [facility] TECHNIQUE: XR chest 1V portable Frontal view of the chest. FINDINGS: Lungs/Pleura: There is no evidence of pleural effusion, focal consolidation, or pneumothorax. Pulmonary vascularity: Unremarkable. Heart/mediastinum: Cardiomediastinal silhouette is unremarkable. Musculoskeletal: No acute osseous pathology. IMPRESSION: No acute cardiopulmonary disease/process. [facility], , 10/21/2024 4:59 PM
[2024-10-21] MEDS: cloNIDine HCL 0.1 MG TAB PO PRN (17:42)
[2024-10-21] MEDS: cloNIDine HCL 0.1 MG TAB PO SCH (17:42)
[2024-10-21] MEDS: PANTOPRAZOLE 40 MG/10 ML VIAL IVP SCH (17:42)
[2024-10-21] MEDS: KETOROLAC 15 MG/ML 1 ML VIAL IVP PRN (17:43)
[2024-10-21] MEDS: HEPARIN SODIUM,PORCINE 5,000 UNIT/ML 1 ML VIAL SQ SCH (20:25)
[2024-10-21] MEDS: LORazepam 1 MG TAB PO PRN (20:28)
[2024-10-21] MEDS: ONDANSETRON 4 MG/2 ML VIAL IVP PRN (20:29)
--- NOTE | 2024-10-21 21:12 | HP ---
HISTORY AND PHYSICAL CHIEF CONCERN: Abdominal pain and back pain. HISTORY OF PRESENT ILLNESS: This 29-year-old woman with a past medical history of significant EtOH up to a pint day, complaining of severe abdominal and back pain. The abdominal pain is felt in the upper part which radiated to the back. The patient with acute pancreatitis. CT scan showed fairly severe, but uncomplicated acute interstitial edematous pancreatitis. There is no history of any fever, rigors, or chills at this time. PAST MEDICAL HISTORY: Reviewed include history of EtOH, history of hypertension, and hypothyroidism. Rest of history and rest of the chart is also noted. Had hidradenitis suppurativa. HOME MEDICATIONS: Reviewed include clonidine. Dose and rest of medications reviewed. ALLERGIES: None. FAMILY HISTORY: No history of heart disease or strokes in the family. SOCIAL HISTORY: Smoking and heavy alcohol. REVIEW OF SYSTEMS: A 14-point review of systems negative except as mentioned earlier. PHYSICAL EXAMINATION: VITAL SIGNS: Pulse is 92, blood pressure 139/116, and respirations 20. HEENT: Conjunctivae normal. NECK: No JVD. CARDIOVASCULAR: S1, S2. RESPIRATIONS: Breath sounds diminished at the bases. No rhonchi. No crackles. ABDOMEN: Soft, mild diffuse tenderness present. No guarding. No mass. LEGS: No edema. NERVOUS SYSTEM: Nonfocal. LABORATORY DATA: Reviewed. ASSESSMENT: 1. Acute severe pancreatitis with acute severe pain. 2. Acute alcohol withdrawals as well as acute delirium tremens. 3. Hypertension. 4. Hypothyroidism. 5. Hidradenitis suppurativa history. 6. History of nephrolithiasis. 7. Multiple complex medical issues. RECOMMENDATIONS: Recommend to continue current medications, continue symptomatic treatment. Pain management. Proton pump inhibitors. CIWA protocol. Conservative line of management. Prognosis extremely guarded because of multiple complex medical issues. Further recommendations to follow. Portable chest x-ray. MMODL / IJN: [id number] /
[2024-10-22] MEDS ORDERED: LORazepam 1 MG/0.5 ML VIAL IV PRN ×2 (00:14→00:15)
[2024-10-22] MEDS: hydrALAZINE HCL 20 MG/ML 1 ML VIAL IVP STA (05:11)
[2024-10-22] MEDS: PROCHLORPERAZINE INJ 10 MG/2 ML VIAL IVP PRN (05:12)
[2024-10-22 08:47] LABS: Basophils # (A) 0.04 X 10*3/uL (0.00-0.10); Basophils % (A) 0.2 %; Eosinophils # (A) 0.06 X 10*3/uL (0.04-0.35); Eosinophils % (A) 0.4 %; HCT 48.2 % (37.2-46.3); HGB 17.4 g/dL (12.0-15.0); Lymphocytes # (A) 0.73 X 10*3/uL (0.90-5.00); Lymphocytes % (A) 4.3 %; MCH 38.2 pg (27.0-32.0); MCHC 36.1 g/dL (32.0-37.0); MCV 105.7 FL (80.0-97.0); Mean Platelet Volume 10.3 FL (9.5-12.2); Monocytes # (A) 0.55 X 10*3/uL (0.20-1.00); Monocytes % (A) 3.2 %; NRBC Per 100 WBC 0 X 10*3/uL (0.00-0.01); Neutrophils # (A) 15.58 X 10*3/uL (1.80-7.70); Neutrophils % (A) 91.4 %; Platelet Count 190 X 10*3/uL (140-440); RBC 4.56 X 10*6/uL (4.10-5.20); RDW 14.8 % (11.5-14.5); WBC 17.05 X 10*3/uL (4.50-10.00)
[2024-10-22 08:50] LABS: ALT 67 U/L (8-44); AST 68 U/L (13-35); Albumin 4.2 g/dL (3.8-4.9); Alkaline Phosphatase 91 U/L (41-126); Amylase 697 U/L (23-121); Blood Urea Nitrogen 7.6 mg/dL (9.0-27.0); Calcium 9.3 mg/dL (8.7-10.3); Carbon Dioxide 19.4 mmol/L (21.6-31.8); Chloride 104 mmol/L (96-109); Glucose 99 mg/dL (70-110); Potassium 3.5 mmol/L (3.5-5.5); Sodium 140 mmol/L (135-145); Total Bilirubin 1.3 mg/dL (0.3-1.2); Total Protein 7.2 g/dL (6.2-8.2)
[2024-10-22 09:02] LABS: Lipase 1592 U/L (14-63)
[2024-10-22] MEDS: LORazepam 1 MG TAB PO PRN ×2 (09:07→14:49)
--- NOTE | 2024-10-22 10:39 | US ---
EXAMINATION TYPE: US gallbladder DATE OF EXAM: 10/22/2024 COMPARISON: CT abdomen pelvis one day earlier CLINICAL INDICATION: Female, 29 years old with history of abd pain, pancreatitis; pain TECHNIQUE: Grayscale and color Doppler imaging of the right upper quadrant was performed. FINDINGS: EXAM MEASUREMENTS: Liver Length: 21.2 cm Gallbladder Wall: .2 cm CBD: .4 cm Right Kidney: 11.1 x 4.2 x 4.9 cm FLAT IRONER NOTES: Pancreas: Obscured by bowel gas Liver: Increased attenuation hepatomegaly. Gallbladder: No stones seen Evidence for sonographic Hanks's sign: No CBD: wnl Right Kidney: No hydronephrosis or masses seen Visualized pancreas is heterogeneous. Portions obscured by overlying bowel gas. Hepatomegaly redemonstrated. Visualized liver heterogeneous in appearance. No gallstones. No right-si ded hydronephrosis. IMPRESSION: Suboptimal study. Findings of acute pancreatitis seen better on recent CT versus today's ultrasound. No biliary dilatation noted. [facility], Workstation: [employer], 10/22/2024 10:36 AM
[2024-10-22 16:57] VITALS: BMI 33.2
[2024-10-23] MEDS: LORazepam 0.5 MG TAB PO PRN
--- NOTE | 2024-10-23 06:25 | P.PN ---
Subjective Progress Note Date: 10/22/24 This is a 29-year-old female who was recently admitted with significant EtOH with severe abdominal and back pain being closely monitored. Patient with acute pancreatitis noted on CT showing fairly severe for uncomplicated and ALT/AST are elevated along with lipase slowly trending down although continues to be 1592 and amylase increased at 697. Patient total bilirubin is 1.3. White count spiked today with no fevers noted and patient denies any pain or urinary issues or shortness of breath. Patient is extremely lethargic on exam and is requiring CIWA protocol along with pain management. Encouraged increase activity as tolerated and recommend to continue on clear liquids and if having continued abdominal pain recommend just ice chips and occasional sips of water. Will follow-up on repeat labs and also obtain an ultrasound of the gallbladder. Review of systems: Constitutional: No reports of fatigue, fever, or chills Cardiovascular: No reports of chest pain or palpitations Respiratory: No reports of shortness of breath or cough GI: reports of nausea, no reports of vomiting but frequent dry heaving, continued intense abdominal pain : No reports of dysuria or retention Neurovascular: reports of generalized weakness All medications have been reviewed PHYSICAL EXAMINATION: GENERAL: The patient is lethargic although arousable and fatigues easily, alert and oriented x3, Well developed, well nourished. HEENT: Pupils are round and equally reacting to light. EOMI. no scleral icterus. No conjunctival pallor. Normocephalic, atraumatic. No pharyngeal erythema. No thyromegaly. CARDIOVASCULAR: S1 and S2 muffled PULMONARY: diminished breath sounds bilaterally with no wheezing or rhonchi noted. ABDOMEN: soft. tender on exam. obese. Mildly-distended, normoactive bowel sounds. No palpable organomegaly. MUSCULOSKELETAL: No joint swelling or deformity. EXTREMITIES: No cyanosis, clubbing, or pedal edema. NEUROLOGICAL: Gross neurological examination did not reveal any focal deficits. Diffuse weakness SKIN: No rashes. Assessment: Acute severe pancreatitis with acute severe pain Acute alcohol withdrawal as well as acute delirium tremens Hypertension Hypothyroidism Hidradenitis suppurativa history History of nephrolithiasis Obesity with a BMI 33.2 GI prophylaxis DVT prophylaxis Full code Plan: Recommend to continue with current medications and management with continued normal saline hydration and follow-up on repeat labs as LFTs remain elevated although trending down, total bili is 1.6, and amylase and lipase are elevated. Recommend just ice chips or sips of water and advance to clear liquids at most if tolerating. Patient per nursing staff is not tolerating much and is requiring antiemetics. Encourage increase activity as tolerated and sitting up more frequently Continue CIKS protocol Gallbladder ultrasound ordered and pending at this time Due to multiple complex medical issues, overall prognosis is guarded will discuss further with social work regarding resources on discharge for inpatient alcohol rehab. The impression and plan of care has been dictated by Lindsey Banda, nurse practitioner as directed. Dr. Skyler MD I have performed a history and examination and MDM of this patient, discussed the same with the dictator, and agree with the dictator's assessment and plan as written ,documented as a scribe. Based on total visit time, I have performed more than 50% of the visit. Any additional findings or plans will be noted. Objective - Vital Signs Vital signs: Vital Signs Temp 98.4 F 10/23/24 01:05 Pulse 89 10/23/24 01:05 Resp 16 10/23/24 01:05 BP 131/76 10/23/24 01:05 Pulse Ox 99 10/23/24 01:05 FiO2 Intake & Output 10/22/24 10/22/24 10/23/24 06:59 18:59 06:59 Weight 93.44 kg Other: # Voids 2 1 1 - Labs CBC & Chem 7: 10/22/24 05:31 10/22/24 05:31 Labs: Abnormal Lab Results - Last 24 Hours (Table) 10/22/24 10/22/24 Range/Units 05:31 05:31 WBC 17.05 H (4.50-10.00) X 10*3/uL Hgb 17.4 H (12.0-15.0) g/dL Hct 48.2 H (37.2-46.3) % MCV 105.7 H (80.0-97.0) FL MCH 38.2 H (27.0-32.0) pg RDW 14.8 H (11.5-14.5) % Immature Gran # 0.09 H (0.00-0.04) X 10*3/uL Neutrophils # 15.58 H (1.80-7.70) X 10*3/uL Lymphocytes # 0.73 L (0.90-5.00) X 10*3/uL Carbon Dioxide 19.4 L (21.6-31.8) mmol/L Anion Gap 16.60 H (4.00-12.00) mmol/L BUN 7.6 L (9.0-27.0) mg/dL BUN/Creatinine Ratio 9.50 L (12.00-20.00) Ratio Total Bilirubin 1.3 H (0.3-1.2) mg/dL AST 68 H (13-35) U/L ALT 67 H (8-44) U/L Albumin/Globulin Ratio 1.40 L (1.60-3.17) Ratio Amylase 697 H (23-121) U/L Lipase 1592 H (14-63) U/L
[2024-10-23 08:23] LABS: Basophils # (A) 0.03 X 10*3/uL (0.00-0.10); Basophils % (A) 0.2 %; Eosinophils # (A) 0.08 X 10*3/uL (0.04-0.35); Eosinophils % (A) 0.5 %; HCT 43.9 % (37.2-46.3); HGB 15.4 g/dL (12.0-15.0); Lymphocytes # (A) 0.88 X 10*3/uL (0.90-5.00); Lymphocytes % (A) 5.2 %; MCH 37.4 pg (27.0-32.0); MCHC 35.1 g/dL (32.0-37.0); MCV 106.6 FL (80.0-97.0); Mean Platelet Volume 10.5 FL (9.5-12.2); Monocytes # (A) 0.67 X 10*3/uL (0.20-1.00); Monocytes % (A) 3.9 %; NRBC Per 100 WBC 0 X 10*3/uL (0.00-0.01); Neutrophils # (A) 15.25 X 10*3/uL (1.80-7.70); Neutrophils % (A) 89.6 %; Platelet Count 161 X 10*3/uL (140-440); RBC 4.12 X 10*6/uL (4.10-5.20); RDW 14.9 % (11.5-14.5); WBC 17.02 X 10*3/uL (4.50-10.00)
[2024-10-23 09:04] LABS: Amylase 416 U/L (23-121); Magnesium 1.6 mg/dL (1.5-2.4)
[2024-10-23 09:19] LABS: ALT 44 U/L (8-44); AST 43 U/L (13-35); Albumin 3.6 g/dL (3.8-4.9); Albumin/Globulin Ratio 1.44 Ratio (1.60-3.17); Alkaline Phosphatase 76 U/L (41-126); BUN/Creat Ratio 10.83 Ratio (12.00-20.00); Blood Urea Nitrogen 6.5 mg/dL (9.0-27.0); Calcium 8.9 mg/dL (8.7-10.3); Carbon Dioxide 22.1 mmol/L (21.6-31.8); Chloride 104 mmol/L (96-109); Globulin 2.5 g/dL (1.6-3.3); Glucose 77 mg/dL (70-110); Lipase 529 U/L (14-63); Potassium 3.6 mmol/L (3.5-5.5); Sodium 137 mmol/L (135-145); Total Bilirubin 1.5 mg/dL (0.3-1.2); Total Protein 6.1 g/dL (6.2-8.2)
[2024-10-23] MEDS: metroNIDAZOLE-NS PMX 500 MG in SALINE 1 100ML.BAG IVPB SCH (09:38)
[2024-10-23] MEDS: PIPERACILLIN-TAZOBACTAM 3.375 GM in SODIUM CHLORIDE 0.9% 100 ML IVPB SCH (10:46)
[2024-10-23 21:45] VITALS: RESP 17
[2024-10-24 14:07] VITALS: BP 144/91; PULSE 85; TEMP 97.4
[2024-10-24] MEDS: KETOROLAC 15 MG/ML 1 ML VIAL IVP PRN (14:29)
[2024-10-24 16:37] LABS: Basophils % (A) 0 %; Eosinophils # (A) 0.2 k/uL (0-0.7); Eosinophils % (A) 1 %; HCT 42.5 % (34.0-46.0); HGB 14.6 gm/dL (11.4-16.0); Lymphocytes % (A) 8 %; MCH 37.5 pg (25.0-35.0); MCHC 34.4 g/dL (31.0-37.0); MCV 108.9 fL (80.0-100.0); Macrocytosis Marked; Mean Platelet Volume 8.3; Monocytes # (A) 0.6 k/uL (0-1.0); Monocytes % (A) 5 %; Neutrophils # (A) 10.3 k/uL (1.3-7.7); Neutrophils % (A) 84 %; Platelet Count 172 k/uL (150-450); RDW 15.2 % (11.5-15.5); WBC 12.2 k/uL (3.8-10.6)
[2024-10-24 16:48] LABS: African American GFR (CKD) >90 (>60 ml/min/1.73 sqM); Anion Gap 8 mmol/L; Blood Urea Nitrogen 7 mg/dL (7-17); Calcium 8.9 mg/dL (8.4-10.2); Carbon Dioxide 25 mmol/L (22-30); Chloride 102 mmol/L (98-107); Glucose 72 mg/dL (74-99); Lipase 408 U/L (23-300); Non-African American GFR(CKD) >90 (>60 ml/min/1.73 sqM); Potassium 3.8 mmol/L (3.5-5.1); Sodium 135 mmol/L (137-145)
[2024-10-24 17:05] LABS: C Reactive Protein 23.3 mg/dL (<1.0)
--- NOTE | 2024-10-24 23:45 | P.CONS ---
History of Present Illness - Reason for Consult Consult date: 10/24/24 Leukocytosis Requesting physician: Marcelle Lehman - Chief Complaint Abdominal pain x few days - History of Present Illness Patient is a 29-year-old female with a past medical history significant for hypertension hypothyroidism pancreatitis hidradenitis suppurativ a anxiety depression presenting to the hospital 3 days ago for evaluation of abdominal pain, and this patient apparently did drink a bit of alcohol. [place] day subsequent developing epigastric abdominal pain describing the pain to be sharp 10 out of 10 by the time he presented to hospital patient did have nausea and vomiting but denies having any hematochezia or coffee-ground emesis patient on presentation to the hospital was afebrile and no fever have recorded subsequently patient was not tachycardic hypotensive or hypoxic patient did have a white count of 9 on admission subsequent white count has been up to 17.05 with a left shift creatinine has been normal liver isms mildly elevated did have elevated amylase and lipase UA has been negative blood cultures obtained which are currently pending patient did have abdominal pelvis CT there was new moderate to severe ill-defined fluid and fat stranding surrounding the pancreas no well-formed fluid collection identified and there was wall thickening of the second third portion of the duodenal sweep surrounded by ill-defined fluid patient was started on Zosyn and Flagyl yesterday infectious disease was consulted today because of leukocytosis Review of Systems Positive point and negatives has been mentioned in the HPI, complete review of systems was performed and all other systems are negative Past Medical History Past Medical History: Hypertension, Thyroid Disorder Additional Past Medical History / Comment(s): Hydradenitis suppertiva; Kidney stones, PANCREATITIS History of Any Multi-Drug Resistant Organisms: MRSA Year Discovered:: 10/09/24 MDRO Source:: buttock Past Surgical History: No Surgical Hx Reported Additional Past Surgical History / Comment(s): cyst removed from buttocks two years ago, cystoscopy with right ureteroscopy and holmium laser lithotripsy on 09/19/2020 Past Anesthesia/Blood Transfusion Reactions: No Reported Reaction Past Psychological History: Anxiety, Depression Smoking Status: Current every day smoker, Heavy tobacco smoker Past Alcohol Use History: Heavy, Occasional Past Drug Use History: Marijuana - Past Family History Mother Family Medical History: No Reported History Medications and Allergies Home Medications Medication Instructions Recorded Confirmed Type cloNIDine HCL [Catapres] 0.1 mg PO TID 30 Days #90 tab 06/22/24 10/21/24 Rx Ondansetron Odt [Zofran ODT] 4 mg PO Q8HR PRN #15 tab 09/30/24 10/21/24 Rx Sulfamethox-Tmp 800-160Mg [Bactrim 1 tab PO Q12HR 10 Days #20 tab 10/10/24 10/21/24 Rx DS 800-160 mg] Pantoprazole Sodium [Protonix] 40 mg PO DAILY PRN 10/21/24 10/21/24 History Allergies Allergy/AdvReac Type Severity Reaction Status Date / Time No Known Allergies Allergy Verified 10/21/24 13:03 Physical Exam Vitals: Vital Signs Temp Pulse Resp BP BP Pulse Ox 10/24/24 13:40 97.4 F L 85 17 144/91 100 10/24/24 07:10 97.6 F 67 17 135/87 100 10/24/24 02:00 97.8 F 70 17 134/87 98 10/23/24 20:00 98.0 F 98 17 158/84 99 Intake and Output 10/24/24 10/24/24 10/24/24 06:59 14:59 22:59 Intake Total 118 Balance 118 Intake: Oral 118 Other: Voiding Method Toilet # Voids 4 GENERAL DESCRIPTION: Middle-age female lying in bed, no distress. No tachypnea or accessory muscle of respiration use. HEENT: Shows Pallor , no scleral icterus. Oral mucous membrane is dry. No pharyngeal erythema or thrush NECK: Trachea central, no thyromegaly. LUNGS: Unlabored breathing. Clear to auscultation anteriorly. No wheeze or crackle. HEART: S1, S2, regular rate and rhythm. No loud murmur ABDOMEN: Soft,epigastric tenderness EXTREMITIES: No edema of feet. SKIN: No rash, no masses palpable. NEUROLOGICAL: The patient is awake, alert, oriented x3, mood and affect normal. Results CBC & Chem 7: 10/24/24 15:46 10/24/24 15:46 Assessment and Plan (1) Leukocytosis Status: Acute Code(s): D72.829 - ELEVATED WHITE BLOOD CELL COUNT, UNSPECIFIED SNOMED Code(s): 607473258 (2) Pancreatitis Status: Acute Code(s): K85.90 - ACUTE PANCREATITIS WITHOUT NECROSIS OR INFECTION, UNSP SNOMED Code(s): 00045954 Plan: 1patient with elevated white count is more likely related to her severe pancreatitis from alcoholism however there was some evidence of due to diabetes and fluid around the duodenum on the CT which could be more likely reactive possible component of infection less likely as the patient does not look toxic and is not running any fever 2-for now continue with Zosyn while waiting for the culture to finalize and see that trending her white count Multiple question concern answered We will follow on clinical condition and cultures to further adjust medication if needed Thank you for this consultation we will follow the patient along with you Dictation was produced using [employer] dictation software. please excuse any grammatical, word or spelling errors. Time with Patient: Greater than 30
== END 2024-10-24 18:50 | disposition left against medical advice (07) | DRG 282 ==
LOC: EC 09:20 → 6NMEDSUR 12:31 → OBSVTOIN 12:32 → 6NMEDSUR 13:54
PROVIDERS: ADMIT Internal Medicine; ATTEND Internal Medicine
DX: K85.20 Alcohol induced acute pancreatitis without necrosis or infection (principal); E03.9 Hypothyroidism, unspecified; E66.9 Obesity, unspecified; F10.231 Alcohol dependence with withdrawal delirium; F17.200 Nicotine dependence, unspecified, uncomplicated; I10 Essential (primary) hypertension; L03.90 Cellulitis, unspecified; Z68.33 Body mass index [BMI] 33.0-33.9, adult; Z79.899 Other long term (current) drug therapy; Z87.442 Personal history of urinary calculi; Z28.310 Unvaccinated for COVID-19; Z28.21 Immunization not carried out because of patient refusal
CPT/HCPCS: 36415; 71045; 74177; 76705; 80048; 80053; 81001; 81025; 82150; 83605; 83690; 83735; 84145; 85025; 86140; 87040; 96361; 96374; 96375; 96376; 99285

== ENCOUNTER 2024-10-26 02:35 | Inpatient (IN) | payer OTHER ==
[2024-10-26] MEDS: ONDANSETRON 4 MG/2 ML VIAL IVP STA (04:59)
[2024-10-26] MEDS: MORPHINE SULFATE 4 MG/ML SYRINGE IV STA ×2 (05:00→08:20)
[2024-10-26] MEDS: SODIUM CHLORIDE 0.9% 1,000 ML IV ONE (05:02)
[2024-10-26] MEDS: SODIUM CHLORIDE 0.9% 1,000 ML IV STA (05:03)
[2024-10-26 05:18] LABS: ALT 54 U/L (4-34); AST 100 U/L (14-36); African American GFR (CKD) >90 (>60 ml/min/1.73 sqM); Albumin 4.1 g/dL (3.5-5.0); Alcohol <10 mg/dL; Alkaline Phosphatase 98 U/L (38-126); Amylase 150 U/L (30-110); Anion Gap 12 mmol/L; Blood Urea Nitrogen 8 mg/dL (7-17); Calcium 9.6 mg/dL (8.4-10.2); Carbon Dioxide 24 mmol/L (22-30); Chloride 105 mmol/L (98-107); Glucose 75 mg/dL (74-99); Lipase 325 U/L (23-300); Non-African American GFR(CKD) >90 (>60 ml/min/1.73 sqM); Sodium 141 mmol/L (137-145); Total Bilirubin 1.3 mg/dL (0.2-1.3); Total Protein 7.7 g/dL (6.3-8.2)
--- NOTE | 2024-10-26 05:23 | ED ---
Abdominal Pain HPI - General Chief Complaint: Abdominal Pain Stated Complaint: abd pain Time Seen by Provider: 10/26/24 03:59 Source: patient Mode of arrival: wheelchair Limitations: no limitations - History of Present Illness Initial Comments: Patient is a 29-year-old woman who presents to have evaluation and treatment of abdominal pain. She indicates the pain is across the upper abdomen. States she has history of pancreatitis and this feels the same. She states in fact that she had been admitted in the hospital October 21 to for an episode of pancreatitis. She states that she had to sign herself out AGAINST MEDICAL ADVICE so that she could take care of some matters involving her children. She states that her pain has continued and she is having nausea and vomiting as well, proximately 6 episodes, no bloody or coffee-ground emesis. She has not noted fever or chills. That her bowel movements were watery over the past day. No hematemesis. MD Complaint: abdominal pain Onset/Timin -: week(s) Location: LUQ, RUQ Radiation: back Migration to: no migration Severity: severe Quality: aching Consistency: constant Improves With: nothing Worsens With: eating Associated Symptoms: nausea, vomiting - Related Data Home Medications Medication Instructions Recorded Confirmed Pantoprazole Sodium [Protonix] 40 mg PO DAILY PRN 10/21/24 10/26/24 Previous Rx's Medication Instructions Recorded HYDROcodone/APAP 5-325MG [[place] 1 each PO Q4HR PRN 3 Days #9 tab 11/03/24 5-325] Losartan [Cozaar] 100 mg PO DAILY 30 Days #30 tab 11/03/24 amLODIPine [Norvasc] 10 mg PO DAILY 30 Days #30 tab 11/03/24 hydroCHLOROthiazide [Hydrodiuril] 25 mg PO DAILY 30 Days #30 tab 11/03/24 Allergies Allergy/AdvReac Type Severity Reaction Status Date / Time No Known Allergies Allergy Verified 10/26/24 09:26 Review of Systems ROS Statement: Those systems with pertinent positive or pertinent negative responses have been documented in the HPI. ROS Other: All systems not noted in ROS Statement are negative. Constitutional: Denies: fever, chills Respiratory: Denies: cough, dyspnea Cardiovascular: Denies: chest pain, palpitations Gastrointestinal: Reports: abdominal pain, nausea, vomiting, diarrhea. Denies: constipation, hematemesis, melena, hematochezia Genitourinary: Denies: dysuria, hematuria Musculoskeletal: Denies: back pain Skin: Denies: rash Neurological: Denies: headache, weakness, numbness Past Medical History Past Medical History: Hypertension, Thyroid Disorder Additional Past Medical History / Comment(s): Hydradenitis suppertiva; Kidney stones, PANCREATITIS History of Any Multi-Drug Resistant Organisms: MRSA Date of last positivie culture/infection: 10/09/24 MDRO Source:: buttock Past Surgical History: No Surgical Hx Reported Additional Past Surgical History / Comment(s): cyst removed from buttocks two years ago, cystoscopy with right ureteroscopy and holmium laser lithotripsy on 09/19/2020 Past Anesthesia/Blood Transfusion Reactions: No Reported Reaction Past Psychological History: Anxiety, Depression Smoking Status: Current every day smoker, Heavy tobacco smoker Past Alcohol Use History: Heavy, Occasional Past Drug Use History: Marijuana - Past Family History Mother Family Medical History: No Reported History General Exam Limitations: no limitations General appearance: alert, in no apparent distress Head exam: Present: atraumatic, normocephalic Eye exam: Present: normal appearance. Absent: scleral icterus, conjunctival injection ENT exam: Present: normal oropharynx Neck exam: Present: normal inspection Respiratory exam: Present: normal lung sounds bilaterally. Absent: respiratory distress, wheezes, rales, rhonchi, stridor, accessory muscle use Cardiovascular Exam: Present: regular rate, normal rhythm GI/Abdominal exam: Present: soft, tenderness. Absent: distended, guarding, rebound, rigid, mass, hernia Extremities exam: Present: normal inspection, normal capillary refill. Absent: pedal edema, calf tenderness Back exam: Present: normal inspection. Absent: CVA tenderness (R), CVA tenderness (L) Neurological exam: Present: alert Skin exam: Present: warm, dry, intact, normal color. Absent: rash Course Vital Signs 10/26/24 10/26/24 10/26/24 02:36 07:27 08:10 Temperature 97.4 F L 98.3 F Pulse Rate 92 87 74 Respiratory 20 22 17 Rate Blood Pressure 145/98 143/100 157/112 O2 Sat by Pulse 100 99 99 Oximetry 10/26/24 10/26/24 11:43 12:56 Temperature 97.6 F Pulse Rate 60 52 L Respiratory 17 19 Rate Blood Pressure 148/94 117/80 O2 Sat by Pulse 98 98 Oximetry Medical Decision Making - Medical Decision Making Was pt. sent in by a medical professional or institution (GABE Lugo, COMPLIANCE ADVISOR, urgent care, hospital, or [facility]...) When possible be specific @ -[No] Did you speak to anyone other than the patient for history (EMS, parent, family, police, friend...)? What history was obtained from this source @ -[No] Did you review nursing and triage notes (agree or disagree)? Why? @ -[I reviewed and agree with nursing and triage notes] Were old charts reviewed (outside hosp., previous admission, EMS record, old EKG, old radiological studies, urgent care reports/EKG's, [facility] records)? Report findings @ -[Yes, old charts were reviewed] Differential Diagnosis (chest pain, altered mental status, abdominal pain women, abdominal pain men, vaginal bleeding, weakness, fever, dyspnea, syncope, headache, dizziness, GI bleed, back pain, seizure, CVA, palpatations, mental health, musculoskeletal)? @ -[Differential Abdominal Pain Women: Appendicitis, Cholecystitis, diverticulosis, ischemic bowel, pancreatitis, hepatitis, UTI, gastroenteritis, AAA, incarcerated hernia, bowel obstruction, constipation, inflammatory bowel, hepatitis, peptic ulcer disease, splenic infarction, perforated viscus, vulvitis, ovarian torsion, PID, kidney stone, placenta abruption, this is not meant to be an all-inclusive list EKG interpreted by me (3pts min.). @ -[As above] X-rays interpreted by me (1pt min.). @ -[None done] CT interpreted by me (1pt min.). @ -[None done] U/S interpreted by me (1pt. min.). @ -[None done] What testing was considered but not performed or refused? (CT, X-rays, U/S, labs)? Why? @ -[None] What meds were considered but not given or refused? Why? @ -[None] Did you discuss the management of the patient with other professionals (professionals i.e. GABE Lugo, COMPLIANCE ADVISOR, lab, RT, psych nurse, social and political studies professor, educational assistant, teacher, general service officer, corrections caseworker)? Give summary @ -[Case discussed with admitting physician and treatment recommendations incorporated Was smoking cessation discussed for >3mins.? @ -[No] Was critical care preformed (if so, how long)? @ -[No] Were there social determinants of health that impacted care today? How? (Homelessness, low income, unemployed, alcoholism, drug addiction, transportation, low edu. Level, literacy, decrease access to med. care, nursing home, rehab)? @ -[No] Was there de-escalation of care discussed even if they declined (Discuss DNR or withdrawal of care, Hospice)? DNR status @ -[No] What co-morbidities impacted this encounter? (DM, HTN, Smoking, COPD, CAD, Cancer, CVA, ARF, Chemo, Hep., AIDS, mental health diagnosis, sleep apnea, morbid obesity)? @ -[History of pancreatitis Was patient admitted / discharged? Hospital course, mention meds given and route, prescriptions, significant lab abnormalities, going to OR and other pertinent info. @ -[Patient is a 29-year-old woman here with acute pancreatitis. Will admit patient to have mainly symptomatic management, as appears unlikely to require surgical intervention at this time. Undiagnosed new problem with uncertain prognosis? @ -[No] Drug Therapy requiring intensive monitoring for toxicity (Heparin, Nitro, Insulin, Cardizem)? @ -[No] Were any procedures done? @ -[No] Diagnosis/symptom? @ -[Acute abdominal pain Acute pancreatitis Acute, or Chronic, or Acute on Chronic? @ -[Acute Uncomplicated (without systemic symptoms) or Complicated (systemic symptoms)? @ -[Uncomplicated Side effects of treatment? @ -[No] Exacerbation, Progression, or Severe Exacerbation? @ -[No] Poses a threat to life or bodily function? How? (Chest pain, [place], [place], pneumonia, PE, COPD, DKA, ARF, appy, cholecystitis, CVA, Diverticulitis, Homicidal, Suicidal, threat to staff... and all critical care pts) @ -[No] All treatments are based on ideal body weight as in ED triage - Lab Data Result diagrams: 11/03/24 05:53 11/03/24 05:53 Lab Results 10/26/24 10/26/24 10/26/24 Range/Units 04:35 04:35 05:12 WBC 8.9 (3.8-10.6) k/uL RBC 3.75 L (3.80-5.40) m/uL Hgb 13.7 (11.4-16.0) gm/dL Hct 40.5 (34.0-46.0) % MCV 107.9 H (80.0-100.0) fL MCH 36.5 H (25.0-35.0) pg MCHC 33.9 (31.0-37.0) g/dL RDW 14.9 (11.5-15.5) % Plt Count 212 (150-450) k/uL MPV 8.5 Neutrophils % 72 % Lymphocytes % 17 % Monocytes % 7 % Eosinophils % 3 % Basophils % 0 % Neutrophils # 6.4 (1.3-7.7) k/uL Lymphocytes # 1.5 (1.0-4.8) k/uL Monocytes # 0.6 (0-1.0) k/uL Eosinophils # 0.3 (0-0.7) k/uL Basophils # 0.0 (0-0.2) k/uL Manual Slide Review Performed Macrocytosis Marked A Sodium 141 (137-145) mmol/L Potassium 3.9 (3.5-5.1) mmol/L Chloride 105 (98-107) mmol/L Carbon Dioxide 24 (22-30) mmol/L Anion Gap 12 mmol/L BUN 8 (7-17) mg/dL Creatinine 0.56 (0.52-1.04) mg/dL Est GFR (CKD-EPI)AfAm >90 (>60 ml/min/1.73 sqM) Est GFR (CKD-EPI)NonAf >90 (>60 ml/min/1.73 sqM) Glucose 75 (74-99) mg/dL Plasma Lactic Acid Kartik 0.9 (0.7-2.0) mmol/L Calcium 9.6 (8.4-10.2) mg/dL Total Bilirubin 1.3 (0.2-1.3) mg/dL AST 100 H (14-36) U/L ALT 54 H (4-34) U/L Alkaline Phosphatase 98 (38-126) U/L Total Protein 7.7 (6.3-8.2) g/dL Albumin 4.1 (3.5-5.0) g/dL Amylase 150 H (30-110) U/L Lipase 325 H (23-300) U/L Serum Alcohol <10 mg/dL Disposition Clinical Impression: Abdominal pain Disposition: ADMITTED IP TO THIS HOSP Condition: Stable Is patient prescribed a controlled substance at d/c from ED?: No
[2024-10-26 05:54] LABS: Potassium 3.9 mmol/L (3.5-5.1)
[2024-10-26 06:16] LABS: Basophils % (A) 0 %; Eosinophils # (A) 0.3 k/uL (0-0.7); Eosinophils % (A) 3 %; HCT 40.5 % (34.0-46.0); HGB 13.7 gm/dL (11.4-16.0); Lymphocytes # (A) 1.5 k/uL (1.0-4.8); Lymphocytes % (A) 17 %; MCH 36.5 pg (25.0-35.0); MCHC 33.9 g/dL (31.0-37.0); MCV 107.9 fL (80.0-100.0); Macrocytosis Marked; Mean Platelet Volume 8.5; Monocytes # (A) 0.6 k/uL (0-1.0); Monocytes % (A) 7 %; Neutrophils # (A) 6.4 k/uL (1.3-7.7); Neutrophils % (A) 72 %; Platelet Count 212 k/uL (150-450); RBC 3.75 m/uL (3.80-5.40); RDW 14.9 % (11.5-15.5); WBC 8.9 k/uL (3.8-10.6)
[2024-10-26] MEDS ORDERED: NALOXONE 0.4 MG/ML 1 ML VIAL IV PRN (07:52)
[2024-10-26] MEDS ORDERED: ONDANSETRON 4 MG/2 ML VIAL IVP PRN (07:52)
[2024-10-26] MEDS ORDERED: MORPHINE SULFATE 4 MG/ML SYRINGE IV PRN (07:52)
[2024-10-26] MEDS ORDERED: MAG HYDROX/AL HYDROX/SIMETH 30 ML CUP PO PRN (07:52)
[2024-10-26] MEDS: PANTOPRAZOLE 40 MG/10 ML VIAL IV SCH ×2 (08:19→20:08)
[2024-10-26] MEDS: cloNIDine HCL 0.1 MG TAB PO SCH (08:20)
[2024-10-26] MEDS: KETOROLAC 15 MG/ML 1 ML VIAL IVP SCH (11:41)
--- NOTE | 2024-10-26 13:02 | XR ---
EXAMINATION TYPE: XR chest 1V portable DATE OF EXAM: 10/26/2024 CLINICAL INDICATION: Female, 29 years old with history of shortness of breath, progress study. TECHNIQUE: Single AP portable upright view of the chest is obtained. COMPARISON: Chest x-ray from 5 days earlier FINDINGS: No suspicious new focal airspace opacity, pleural effusion, or pneumothorax seen bilateral ly. Cardiac silhouette size stable and within normal limits. Osseous structures are intact. IMPRESSION: No acute cardiopulmonary process. [facility], , 10/26/2024 12:59 PM
[2024-10-26] MEDS: HYDROmorphone 1 MG/ML 1 ML SYRINGE IVP PRN (13:03)
--- NOTE | 2024-10-26 14:30 | P.HPIM ---
History of Present Illness H&P Date: 10/26/24 This is a pleasant 29-year-old female who presented to the emergency department with severe abdominal pain and reports she feels her pancreatitis is acting up. Patient was recently hospitalized for pancreatitis and left AGAINST MEDICAL ADVICE reporting she had something to do for her children. Patient presented again this morning with increasing abdominal pain that is progressively getting worse and has not resolved since leaving the hospital the other day. Patient reports she did take 1 shot of alcohol at home yesterday but is not intoxicated and is not actively withdrawing. Patient reports mid epigastric upper abdominal pain with tenderness on palpation. Labs reviewed and white count is normal at 8.9, hemoglobin 13.7, platelets 212, sodium 141 with a potassium of 3.9, BUN is 8 and creatinine 0.56. Total bilirubin is 1.3, AST 100, ALT 54, amylase at 150 and lipase at 325 which are significantly improved from repeat a few days ago. Serum alcohol was less than 10. Chest x-ray done showing no acute cardiopulmonary process. Patient was admitted under observation for acute panc reatitis and started on fluids as well as pain management. Patient started on clear liquids and will continue gentle IV hydration for now. Patient does not currently have a primary care provider and reports has a history of high blood pressure, thyroid, hidradenitis suppurativa with kidney stones, anxiety/depression, continued ongoing nicotine use, heavy daily alcohol use, and marijuana use. REVIEW OF SYSTEMS: CONSTITUTIONAL: No fever, no malaise, no fatigue. HEENT: No recent visual problems or hearing problems. Denied any sore throat. CARDIOVASCULAR: No chest pain, orthopnea, PND, no palpitations, no syncope. PULMONARY: Reports an intermittent period of shortness of breath prior to arrival, no cough, no hemoptysis. GASTROINTESTINAL: 1 episode of diarrhea 2 days ago, reports of nausea, reports no vomiting but has been dry heaving, reports severe abdominal pain. NEUROLOGICAL: No headaches, no weakness, no numbness. HEMATOLOGICAL: Denies any bleeding or petechiae. GENITOURINARY: Denies any burning micturition, frequency, or urgency. MUSCULOSKELETAL/RHEUMATOLOGICAL: Denies any joint pain, swelling, or any muscle pain. ENDOCRINE: Denies any polyuria or polydipsia. The rest of the 14-point review of systems is negative. PHYSICAL EXAMINATION: GENERAL: The patient is alert and oriented x3, appears in mild distress with severe abdominal pain. Well developed, well nourished. Obese HEENT: Pupils are round and equally reacting to light. EOMI. No scleral icterus. No conjunctival pallor. Normocephalic, atraumatic. No pharyngeal erythema. No thyromegaly. CARDIOVASCULAR: S1 and S2 muffled PULMONARY: Chest is clear to auscultation, no wheezing or crackles. ABDOMEN: Soft, obese. Nontender, nondistended, normoactive bowel sounds. No palpable organomegaly. MUSCULOSKELETAL: No joint swelling or deformity. EXTREMITIES: No cyanosis, clubbing, or pedal edema. NEUROLOGICAL: Gross neurological examination did not reveal any focal deficits. SKIN: No rashes. Assessment: Abdominal pain, likely secondary to acute pancreatitis Recent hospitalization for pancreatitis 2 days ago and left AGAINST MEDICAL ADVICE due to family issues History of continued ongoing daily alcohol use THC use Continued ongoing nicotine abuse Hypertension history Thyroid disorder History of anxiety, depression Obesity with a BMI 33.9 GI prophylaxis DVT prophylaxis Full code Plan: Patient was admitted under observation for acute pancreatitis with severe abdominal pain. Patient started on gentle hydration and will continue supportive care and recommend clear liquids for now as patient reports continued nausea and occasional dry heaves but no vomiting. Follow-up on repeat labs and replace electrolytes per protocol. Amylase/lipase are mildly elevated although improved from previous hospitalization 2 days ago Encouraged increase activity as tolerated Discussed complete alcohol cessation, patient is trying to cut pack and has no desire to go to alcohol rehab as she has children at home Overall prognosis is guarded as patient did leave AGAINST MEDICAL ADVICE the other day. The impression and plan of care has been dictated by Lindsey Banda, Nurse Practitioner as directed. Dr. Lauren MD I have performed a history and examination and MDM of this patient, discussed the same with the dictator, and agree with the dictator's assessment and plan as written ,documented as a scribe. Based on total visit time, I have performed more than 50% of the visit. Past Medical History Past Medical History: Hypertension, Thyroid Disorder Additional Past Medical History / Comment(s): Hydradenitis suppertiva; Kidney stones, PANCREATITIS History of Any Multi-Drug Resistant Organisms: MRSA Date of last positivie culture/infection: 10/09/24 MDRO Source:: buttock Past Surgical History: No Surgical Hx Reported Additional Past Surgical History / Comment(s): cyst removed from buttocks two years ago, cystoscopy with right ureteroscopy and holmium laser lithotripsy on 09/19/2020 Past Anesthesia/Blood Transfusion Reactions: No Reported Reaction Past Psychological History: Anxiety, Depression Smoking Status: Current every day smoker, Heavy tobacco smoker Past Alcohol Use History: Heavy, Occasional Past Drug Use History: Marijuana - Past Family History Mother Family Medical History: No Reported History Medications and Allergies Home Medications Medication Instructions Recorded Confirmed Type Sulfamethox-Tmp 800-160Mg [Bactrim 1 tab PO Q12HR 10 Days #20 tab 10/10/24 10/26/24 Rx DS 800-160 mg] Pantoprazole Sodium [Protonix] 40 mg PO DAILY PRN 10/21/24 10/26/24 History cloNIDine HCL [Catapres] 0.1 mg PO DAILY 10/26/24 10/26/24 History Allergies Allergy/AdvReac Type Severity Reaction Status Date / Time No Known Allergies Allergy Verified 10/26/24 09:26 Physical Exam Vitals: Vital Signs Temp Pulse Resp BP Pulse Ox 10/26/24 08:10 74 17 157/112 99 10/26/24 07:27 98.3 F 87 22 143/100 99 10/26/24 02:36 97.4 F L 92 20 145/98 100 Intake and Output 10/25/24 10/26/24 10/26/24 22:59 06:59 14:59 Other: Weight 95.254 kg Results CBC & Chem 7: 10/26/24 05:12 10/26/24 04:35 Labs: Abnormal Lab Results - Last 24 Hours (Table) 10/26/24 10/26/24 Range/Units 04:35 05:12 RBC 3.75 L (3.80-5.40) m/uL MCV 107.9 H (80.0-100.0) fL MCH 36.5 H (25.0-35.0) pg Macrocytosis Marked A AST 100 H (14-36) U/L ALT 54 H (4-34) U/L Amylase 150 H (30-110) U/L Lipase 325 H (23-300) U/L
[2024-10-26] MEDS: HEPARIN SODIUM,PORCINE 5,000 UNIT/ML 1 ML VIAL SQ SCH (15:28)
[2024-10-26] MEDS: SODIUM CHLORIDE 0.9% 1,000 ML IV SCH (15:33)
[2024-10-26] MEDS: ONDANSETRON 4 MG/2 ML VIAL IVP PRN (20:40)
[2024-10-26] MEDS: ACETAMINOPHEN IV (For NPO) 1,000 MG in EMPTY BAG 1 BAG IVPB PRN (22:18)
[2024-10-27 07:21] LABS: Basophils % (A) 0 %; Eosinophils # (A) 0.2 k/uL (0-0.7); Eosinophils % (A) 3 %; HCT 39.1 % (34.0-46.0); HGB 13.3 gm/dL (11.4-16.0); Lymphocytes # (A) 1.2 k/uL (1.0-4.8); Lymphocytes % (A) 21 %; MCH 37.2 pg (25.0-35.0); MCHC 33.9 g/dL (31.0-37.0); MCV 109.7 fL (80.0-100.0); Macrocytosis Marked; Mean Platelet Volume 8.6; Monocytes # (A) 0.4 k/uL (0-1.0); Monocytes % (A) 7 %; Neutrophils # (A) 3.7 k/uL (1.3-7.7); Neutrophils % (A) 67 %; Platelet Count 186 k/uL (150-450); RBC 3.56 m/uL (3.80-5.40); RDW 14.7 % (11.5-15.5); WBC 5.6 k/uL (3.8-10.6)
[2024-10-27 07:40] LABS: African American GFR (CKD) >90 (>60 ml/min/1.73 sqM); Albumin 3.3 g/dL (3.5-5.0); Anion Gap 14 mmol/L; Blood Urea Nitrogen 4 mg/dL (7-17); Calcium 8.8 mg/dL (8.4-10.2); Carbon Dioxide 17 mmol/L (22-30); Chloride 104 mmol/L (98-107); Glucose 78 mg/dL (74-99); Magnesium 1.8 mg/dL (1.6-2.3); Non-African American GFR(CKD) >90 (>60 ml/min/1.73 sqM); Potassium 3.6 mmol/L (3.5-5.1); Sodium 135 mmol/L (137-145); Total Protein 6.2 g/dL (6.3-8.2)
[2024-10-27 07:41] LABS: ALT 49 U/L (4-34); AST 69 U/L (14-36); Albumin/Globulin Ratio 1.1; Alkaline Phosphatase 82 U/L (38-126); Amylase 47 U/L (30-110); Globulin 2.9 g/dL; Lipase 133 U/L (23-300); Total Bilirubin 0.9 mg/dL (0.2-1.3)
[2024-10-27 07:53] LABS: Glucose,Whole Blood 86 mg/dL (70-110)
[2024-10-27] MEDS ORDERED: LORazepam 1 MG/0.5 ML VIAL IV PRN ×3 (07:59)
[2024-10-27] MEDS ORDERED: Magnesium Replacement Protocol 1 EACH MISC MISCELLANE PRN (08:01)
[2024-10-27] MEDS ORDERED: Potassium Replacement Protocol 1 EACH MISC MISCELLANE PRN (08:01)
--- NOTE | 2024-10-27 08:10 | XR ---
EXAMINATION TYPE: XR chest 1V portable DATE OF EXAM: 10/27/2024 COMPARISON: 10/18/2024 CLINICAL INDICATION: Female, 29 years old with history of shortness of breath; TECHNIQUE: Single frontal view of the chest is obtained. FINDINGS: There is no focal air space opacity, pleural effusion, or pneumothorax seen. The cardiac silhouette size is within normal limits. The osseous structures are intact. IMPRESSION: No acute process. [facility], , 10/27/2024 8:07 AM
[2024-10-27] MEDS: POTASSIUM CHLORIDE ER 20 MEQ TAB.ER PO SCH (08:42)
[2024-10-27] MEDS: MAGNESIUM SULFATE-D5W PMX 1 GM in DEXTROSE/WATER 1 100ML.BAG IVPB ONE (08:43)
[2024-10-27 09:55] LABS: Glucose,Whole Blood 86 mg/dL (70-110)
--- NOTE | 2024-10-27 12:05 | P.PN ---
Subjective Progress Note Date: 10/27/24 This is a pleasant 29-year-old female who presented to the emergency department with severe abdominal pain and reports she feels her pancreatitis is acting up. Patient was recently hospitalized for pancreatitis and left AGAINST MEDICAL ADVICE reporting she had something to do for her children. Patient presented again this morning with increasing abdominal pain that is progressively getting worse and has not resolved since leaving the hospital the other day. Patient reports she did take 1 shot of alcohol at home yesterday but is not intoxicated and is not actively withdrawing. Patient reports mid epigastric upper abdominal pain with tenderness on palpation. Labs reviewed and white count is normal at 8.9, hemoglobin 13.7, platelets 212, sodium 141 with a potassium of 3.9, BUN is 8 and creatinine 0.56. Total bilirubin is 1.3, AST 100, ALT 54, amylase at 150 and lipase at 325 which are significantly improved from repeat a few days ago. Serum alcohol was less than 10. Chest x-ray done showing no acute cardiopulmonary process. Patient was admitted under observation for acute pancreatitis and started on fluids as well as pain management. Patient started on clear liquids and will continue gentle IV hydration for now. Patient does not currently have a primary care provider and reports has a history of high blood pressure, thyroid, hidradenitis suppurativa with kidney stones, anxiety /depression, continued ongoing nicotine use, heavy daily alcohol use, and marijuana use. 10/27. Patient seen and examined. Patient had rapid response called this morning for low heart rate and elevated blood pressure. Patient was complaining of chest pain at the time. Stat blood work was collected. EKG done showed sinus bradycardia. Patient still having abdominal pain. No nausea or vomiting REVIEW OF SYSTEMS: CONSTITUTIONAL: No fever, no malaise,. CARDIOVASCULAR: As mentioned above PULMONARY: No shortness of breath, no cough, GASTROINTESTINAL: As mentioned above NEUROLOGICAL: No headaches, no weakness, PHYSICAL EXAMINATION: GENERAL: The patient is alert and oriented x3, not in any acute distress. Well developed, well nourished. HEENT: Pupils are round and equally reacting to light. EOMI. No scleral icterus. No conjunctival pallor. Normocephalic, atraumatic. No pharyngeal erythema. No thyromegaly. CARDIOVASCULAR: S1 and S2 present. No murmurs, rubs, or gallops. PULMONARY: Chest is clear to auscultation, no wheezing or crackles. ABDOMEN: Soft, nontender, nondistended, normoactive bowel sounds. No palpable organomegaly. MUSCULOSKELETAL: No joint swelling or deformity. EXTREMITIES: No cyanosis, clubbing, or pedal edema. NEUROLOGICAL: Gross neurological examination did not reveal any focal deficits. SKIN: No rashes. Assessment and plan Abdominal pain, likely secondary to acute pancreatitis Bradycardia Recent hospitalization for pancreatitis 2 days ago and left AGAINST MEDICAL ADVICE due to family issues History of continued ongoing daily alcohol use THC use Continued ongoing nicotine abuse Hypertension history Thyroid disorder History of anxiety, depression Obesity with a BMI 33.9 Monitor vital signs Monitor CBC Monitor CMP Continue telemetry monitoring Hold AV rosario blocking agents Ordered troponin Ordered 2D echo DC clonidine Continue IV fluids Continue pain management Ordered repeat CT abdominal pelvis Surgery consulted Cardiology consult Labs and medication were reviewed.. Continue same treatment. Continue with symptomatic treatment. Resume home medication. Monitor labs and vitals. DVT and GI prophylaxis. Further recommendations as per clinical course of the patient Dictation was produced using [employer] dictation software. please excuse any grammatical, word or spelling errors. Objective - Vital Signs Vital signs: Vital Signs Temp 98.1 F 10/27/24 07:30 Pulse 40 L 10/27/24 08:00 Resp 20 10/27/24 07:42 BP 171/112 10/27/24 07:42 Pulse Ox 100 10/27/24 07:30 FiO2 Intake & Output 10/26/24 10/27/24 10/27/24 18:59 06:59 18:59 Intake Total 240 1615 Balance 240 1615 Weight 95.254 kg Intake: Intake, IV Titration 1025 Amount ACETAMINOPHEN IV (For NPO 200 ) 1,000 mg In Empty Bag 1 bag @ 400 mls/hr IVPB Q6HR PRN Rx#:[id number] Sodium Chloride 0.9% 1, 825 000 ml @ 75 mls/hr IV . [id number] [facility] Rx#:[id number] Oral 240 590 Other: Voiding Method Toilet # Voids 1 - Labs CBC & Chem 7: 10/27/24 06:01 10/27/24 06:01 Labs: Abnormal Lab Results - Last 24 Hours (Table) 10/27/24 10/27/24 Range/Units 06:01 06:01 RBC 3.56 L (3.80-5.40) m/uL MCV 109.7 H (80.0-100.0) fL MCH 37.2 H (25.0-35.0) pg Macrocytosis Marked A Sodium 135 L (137-145) mmol/L Carbon Dioxide 17 L (22-30) mmol/L BUN 4 L (7-17) mg/dL AST 69 H (14-36) U/L ALT 49 H (4-34) U/L Total Protein 6.2 L (6.3-8.2) g/dL Albumin 3.3 L (3.5-5.0) g/dL
--- NOTE | 2024-10-27 12:49 | CT ---
EXAMINATION TYPE: CT abdomen pelvis w con DATE OF EXAM: 10/27/2024 COMPARISON: 10/21/2024 CLINICAL INDICATION: Female, 29 years old with history of Abdominal pain; PHH, Lower abdominal pain TECHNIQUE: Performed without Oral Contrast and with IV Contrast, patient injected with 100 mL of Isovue 300. CT DLP: 1554.[address] CTDI: mGy Automated exposure control for dose reduction was used. FINDINGS: Mild atelectasis in the lung bases. There is been interval development of mild pericholecystic fluid but no gallbladder wall thickening o r gallstones. There is no biliary ductal dilatation. There is interval worsening in the marked ill-defined density in the peripancreatic fat predominantly adjacent to tail of pancreas consistent with acute pancreatitis. There is no discrete pseudocyst for mation or abscess. The spleen is mildly prominent in size. There is moderate to marked hepatomegaly. There are no adrenal masses. There is no solid renal mass or hydronephrosis. The caliber of the abdominal aorta is normal. No retroperitoneal adenopathy or hemorrhage. The bowel loops are normal in caliber and there is no evidence of obstruction. No inflammatory change s are identified in the bowel wall. There is no pelvic mass or adenopathy. A small amount of free fluid within the cul-de-sac of the pelv is. The osseous structures are intact. IMPRESSION: 1. Findings consistent with progressive acute pancreatitis predominantly involving the pancreatic sohan l. There is no pseudocyst formation or discrete abscess. There is a small amount of free fluid within the cul-de-sac the pelvis and surrounding the gallbladder. 3. Mild splenomegaly and moderate to marked hepatomegaly. [facility], , 10/27/2024 12:47 PM
[2024-10-27 15:09] LABS: Amphetamine Screen,Urine Not Detected (NotDetected); Barbiturate Screen,Urine Not Detected (NotDetected); Benzodiazepines Screen,Urine Detected (NotDetected); Cocaine Screen,Urine Not Detected (NotDetected); Methadone Screen, Urine Not Detected (NotDetected); Opiate Screen,Urine Detected (NotDetected); Oxycodone Screen, Urine Not Detected (NotDetected); Phencyclidine Screen,Urine Not Detected (NotDetected); Tricyclic Antidepressant,Urine Not Detected (NotDetected); Urn Cannabinoid Scrn Detected (NotDetected)
--- NOTE | 2024-10-27 15:34 | P.CRDCN ---
History of Present Illness Consult date: 10/27/24 History of present illness: This is a 29-year-old female patient with a past medical history significant for excessive alcohol use as well as hypertension and marijuana use and overweight and history of pancreatitis was admitted initially with abdominal discomfort and she underwent a CT scan of the abdomen which showed pancreatitis. Her lipase was within normal limits. Her liver function test are slightly elevated. Subsequently she was admitted to the floor and she was receiving clonidine as an outpatient for hypertension but she developed bradycardia and she was asymptomatic during that episode of bradycardia. The patient subsequently transferred to the intensive care unit. Clonidine is on hold at this point. No dizziness or lightness and no presyncope or syncope no symptoms of chest pain or chest discomfort or shortness of breath and no prior cardiac history besides the hypertension. EKG showed sinus mechanism. First set of troponin came in to be unremarkable. The physical examination is remarkable for regular rhythm with a clear breathing sounds bilaterally and no edema was noted in the lower extremities. Liver function test are mildly elevated. Echo still pending. Assessment Asymptomatic sinus bradycardia Hypertension Alcohol use Thyroid disease with hypothyroidism Multiple comorbid conditions Plan DC clonidine Avoid any AV rosario mike agents at this point Start the patient on dihydropyridine calcium channel mike using amlodipine Follow-up on the echocardiogram which was ordered earlier Follow-up with the second set of troponin Past Medical History Past Medical History: Hypertension, Thyroid Disorder Additional Past Medical History / Comment(s): Hydradenitis suppertiva; Kidney stones, PANCREATITIS History of Any Multi-Drug Resistant Organisms: MRSA Date of last positivie culture/infection: 10/09/24 MDRO Source:: buttock Past Surgical History: No Surgical Hx Reported Additional Past Surgical History / Comment(s): cyst removed from buttocks two years ago, cystoscopy with right ureteroscopy and holmium laser lithotripsy on 09/19/2020 Past Anesthesia/Blood Transfusion Reactions: No Reported Reaction Smoking Status: Current every day smoker - Past Family History Mother Family Medical History: No Reported History Medications and Allergies Home Medications Medication Instructions Recorded Confirmed Type Sulfamethox-Tmp 800-160Mg [Bactrim 1 tab PO Q12HR 10 Days #20 tab 10/10/24 10/26/24 Rx DS 800-160 mg] Pantoprazole Sodium [Protonix] 40 mg PO DAILY PRN 10/21/24 10/26/24 History cloNIDine HCL [Catapres] 0.1 mg PO DAILY 10/26/24 10/26/24 History Allergies Allergy/AdvReac Type Severity Reaction Status Date / Time No Known Allergies Allergy Verified 10/26/24 09:26 Physical Exam Vitals: Vital Signs Temp Pulse Pulse Pulse Resp BP BP 10/27/24 15:15 43 L 17 174/109 10/27/24 14:45 46 L 12 163/98 10/27/24 14:30 41 L 18 163/98 10/27/24 14:20 50 L 12 163/98 10/27/24 14:00 97.6 F 53 L 18 10/27/24 12:17 49 L 10/27/24 11:15 42 L 15 167/97 10/27/24 11:00 45 L 16 10/27/24 10:45 55 L 16 10/27/24 10:30 51 L 11 L 10/27/24 10:15 96 F L 50 L 10 L 168/126 10/27/24 08:00 40 L 10/27/24 07:42 48 L 20 171/112 10/27/24 07:30 98.1 F 51 L 16 174/106 10/27/24 01:55 98.3 F 49 L 16 168/122 10/26/24 19:22 97.9 F 54 L 150/96 10/26/24 16:03 97.6 F 59 L 19 146/93 10/26/24 16:02 97.6 F 66 18 141/94 Pulse Ox 10/27/24 15:15 97 10/27/24 14:45 100 10/27/24 14:30 94 L 10/27/24 14:20 100 10/27/24 14:00 99 10/27/24 12:17 10/27/24 11:15 98 10/27/24 11:00 97 10/27/24 10:45 99 10/27/24 10:30 99 10/27/24 10:15 99 10/27/24 08:00 10/27/24 07:42 10/27/24 07:30 100 10/27/24 01:55 100 10/26/24 19:22 99 10/26/24 16:03 100 10/26/24 16:02 100 Intake and Output 10/27/24 10/27/24 10/27/24 06:59 14:59 22:59 Intake Total 1615 150 Output Total 300 Balance 1615 -150 Intake: IV 150 Sodium Chloride 0.9% 1, 150 000 ml @ 75 mls/hr IV . [id number] [facility] Rx#:[id number] Intake, IV Titration 1025 Amount ACETAMINOPHEN IV (For NPO 200 ) 1,000 mg In Empty Bag 1 bag @ 400 mls/hr IVPB Q6HR PRN Rx#:[id number] Sodium Chloride 0.9% 1, 825 000 ml @ 75 mls/hr IV . [id number] [facility] Rx#:[id number] Oral 590 Output: Urine 300 Other: Voiding Method Toilet # Voids 1 Results 10/27/24 06:01 10/27/24 06:01 Cardiac Enzymes 10/27/24 10/27/24 Range/Units 06:01 08:22 AST 69 H (14-36) U/L Troponin I <0.012 (0.000-0.034) ng/mL CBC 10/27/24 Range/Units 06:01 WBC 5.6 (3.8-10.6) k/uL RBC 3.56 L (3.80-5.40) m/uL Hgb 13.3 (11.4-16.0) gm/dL Hct 39.1 (34.0-46.0) % Plt Count 186 (150-450) k/uL Comprehensive Metabolic Panel 10/27/24 Range/Units 06:01 Sodium 135 L (137-145) mmol/L Potassium 3.6 (3.5-5.1) mmol/L Chloride 104 (98-107) mmol/L Carbon Dioxide 17 L (22-30) mmol/L BUN 4 L (7-17) mg/dL Creatinine 0.54 (0.52-1.04) mg/dL Glucose 78 (74-99) mg/dL Calcium 8.8 (8.4-10.2) mg/dL AST 69 H (14-36) U/L ALT 49 H (4-34) U/L Alkaline Phosphatase 82 (38-126) U/L Total Protein 6.2 L (6.3-8.2) g/dL Albumin 3.3 L (3.5-5.0) g/dL Current Medications Generic Name Dose Route Start Last Admin Trade Name Freq PRN Reason Stop Dose Admin Al Hydroxide/Mg Hydroxide 15 ml 10/26/24 07:52 Mag Hydrox/Al Hydrox/Simeth 30 Ml Cup PO Q6HR PRN Indigestion Amlodipine Besylate 5 mg 10/28/24 09:00 Amlodipine 5 Mg Tab PO DAILY [facility] Heparin Sodium (Porcine) 5,000 unit 10/26/24 16:00 10/27/24 08:42 Heparin Sodium,Porcine 5,000 Unit/Ml 1 Ml Vial SQ 5,000 unit Q8HR [facility] Administration Hydromorphone HCl 1 mg 10/26/24 12:25 10/27/24 12:35 Hydromorphone 1 Mg/Ml 1 Ml Syringe IVP 1 mg Q4H PRN Administration Severe Pain (Scale 7 to 10) Sodium Chloride 1,000 mls @ 75 mls/hr 10/26/24 14:30 10/27/24 12:00 Saline 0.9% IV 75 mls/hr .[id number] [facility] Administration Acetaminophen 1,000 mg/ IV 100 mls @ 400 mls/hr 10/26/24 19:58 10/27/24 03:18 Solution IVPB 10/27/24 18:01 400 mls/hr Q6HR PRN Administration Breakthrough Pain Ketorolac Tromethamine 15 mg 10/26/24 09:25 10/27/24 12:31 Ketorolac 15 Mg/Ml 1 Ml Vial IVP 10/31/24 09:25 15 mg Q6HR [facility] Administration Lorazepam 1 mg 10/27/24 07:59 Lorazepam 1 Mg/0.5 Ml Vial IV Q1HR PRN CIWA 10 to 15 Lorazepam 1 mg 10/27/24 07:59 Lorazepam 1 Mg/0.5 Ml Vial IV Q2HR PRN CIWA 8 or 9 Lorazepam 2 mg 10/27/24 07:59 Lorazepam 1 Mg/0.5 Ml Vial IV 10/29/24 08:00 Q10M PRN CIWA 16 or higher Miscellaneous Information 1 each 10/27/24 08:01 Magnesium Replacement Protocol 1 Each Misc MISCELLANE DAILY PRN Per Protocol Protocol Miscellaneous Information 1 each 10/27/24 08:01 Potassium Replacement Protocol 1 Each Misc MISCELLANE DAILY PRN Per Protocol Protocol Naloxone HCl 0.2 mg 10/26/24 07:52 Naloxone 0.4 Mg/Ml 1 Ml Vial IV Q2M PRN Opioid Reversal Ondansetron HCl 4 mg 10/26/24 12:26 10/27/24 01:43 Ondansetron 4 Mg/2 Ml Vial IVP 4 mg Q6H PRN Administration Nausea And Vomiting Pantoprazole Sodium 40 mg 10/26/24 21:00 10/27/24 08:43 Pantoprazole 40 Mg/10 Ml Vial IV 40 mg BID [facility] Administration Intake and Output 10/27/24 10/27/24 10/27/24 06:59 14:59 22:59 Intake Total 1615 150 Output Total 300 Balance 1615 -150 Intake: IV 150 Sodium Chloride 0.9% 1, 150 000 ml @ 75 mls/hr IV . [id number] [facility] Rx#:[id number] Intake, IV Titration 1025 Amount ACETAMINOPHEN IV (For NPO 200 ) 1,000 mg In Empty Bag 1 bag @ 400 mls/hr IVPB Q6HR PRN Rx#:[id number] Sodium Chloride 0.9% 1, 825 000 ml @ 75 mls/hr IV . [id number] [facility] Rx#:[id number] Oral 590 Output: Urine 300 Other: Voiding Method Toilet # Voids 1 10/27/24 06:01 10/27/24 06:01
[2024-10-27] MEDS: amLODIPine 5 MG TAB PO STA (15:50)
--- NOTE | 2024-10-27 18:16 | CA ---
Transthoracic Echo Report Name: Khadijah Keating Age: 29 Gender: F : 1995 Exam Date: 10/27/2024 11:48 Exam Location: [place] [facility] Ht (in): 66 Wt (lb): 210 Ordering Physician: Wilton Cam MD Attending/Referring Phys: [employer] Attendant Natalie Mcduffie RDCS Procedure CPT: Indications: shortness of breath, bradycardia Cardiac Hx: Technical Quality: Good Contrast 1: Total Dose (mL): Contrast 2: Total Dose (mL): MEASUREMENTS (Male / Female) Normal Values 2D ECHO LV Diastolic Diameter PLAX 5.2 cm 4.2 - 5.9 / 3.9 - 5.3 cm LV Systolic Diameter PLAX 3.5 cm IVS Diastolic Thickness 1.0 cm 0.6 - 1.0 / 0.6 - 0.9 cm LVPW Diastolic Thickness 0.9 cm 0.6 - 1.0 / 0.6 - 0.9 cm LV Relative Wall Thickness 0.4 RV Internal Dim ED PLAX 3.3 cm LA Systolic Diameter LX 3.7 cm 3.0 - 4.0 / 2.7 - 3.8 cm LV Diastolic Volume MOD BP 168.6 cm??? 67 - 155 / 56 - 104 cm??? LV Systolic Volume MOD BP 61.8 cm??? 22 - 58 / 19 - 49 cm??? LV Ejection Fraction MOD BP 63.4 % >= 55 % LV Cardiac Index MOD BP 2144.5 cm???/min???m??? LV Diastolic Volume MOD 4C 124.6 cm??? LV Systolic Volume MOD 4C 43.9 cm??? LV Ejection Fraction MOD 4C 64.8 % LV Cardiac Index MOD 4C 1619.1 cm???/min???m??? LV Diastolic Length 4C 7.4 cm LV Systolic Length 4C 6.9 cm LV Diastolic Volume MOD 2C 188.1 cm??? LV Systolic Volume MOD 2C 76.3 cm??? LV Ejection Fraction MOD 2C 59.4 % LV Cardiac Index MOD 2C 2243.7 cm???/min???m??? LV Diastolic Length 2C 9.0 cm LV Systolic Length 2C 8.1 cm LA Volume 91.4 cm??? 18 - 58 / 22 - 52 cm??? LA Volume Index 42.6 cm???/m??? 16 - 28 cm???/m??? M-MODE Aortic Root Diameter MM 3.0 cm DOPPLER AV Peak Velocity 115.0 cm/s AV Peak Gradient 5.3 mmHg TR Peak Velocity 229.1 cm/s TR Peak Gradient 21.0 mmHg Right Ventricular Systolic Press 24.7 mmHg FINDINGS Left Ventricle Left ventricular ejection fraction is estimated at 55-60 %. Left ventricular cavity size normal. Left ventricular wall thickness normal. Severely increased left ventricular diastolic volume. Moderately increased left ventricular systolic volume. Right Ventricle Mild right ventricular dilatation. Right ventricular systolic pressure within normal limits. Right Atrium Normal right atrial size. No right atrial thrombus or mass seen. Left Atrium No left atrial thrombus or mass present. Severely increased left atrial volume. Mildly increased left atrial area. Mitral Valve Structurally normal mitral valve. No evidence for mitral valve prolapse. No mitral stenosis. Mild mitral regurgitation. Aortic Valve Trileaflet aortic valve. No aortic valve stenosis or regurgitation. Tricuspid Valve Structurally normal tricuspid valve. Mild tricuspid regurgitation. Pulmonic Valve Structurally normal pulmonic valve. No pulmonic regurgitation. Pericardium No pericardial effusion. Aorta Normal size aortic root and proximal ascending aorta. CONCLUSIONS Normal LV systolic function Technically difficult study for interpretation No significant valvular abnormalities noted Previewed by: Dr. Yossi Mckeon MD (Electronically Signed) Final Date: 27 October 2024 18:15
[2024-10-28] MEDS: amLODIPine 5 MG TAB PO SCH (08:21)
--- NOTE | 2024-10-28 08:22 | P.PN ---
Subjective Progress Note Date: 10/28/24 This is a pleasant 29-year-old female who presented to the emergency department with severe abdominal pain and reports she feels her pancreatitis is acting up. Patient was recently hospitalized for pancreatitis and left AGAINST MEDICAL ADVICE reporting she had something to do for her children. Patient presented again this morning with increasing abdominal pain that is progressively getting worse and has not resolved since leaving the hospital the other day. Patient reports she did take 1 shot of alcohol at home yesterday but is not intoxicated and is not actively withdrawing. Patient reports mid epigastric upper abdominal pain with tenderness on palpation. Labs reviewed and white count is normal at 8.9, hemoglobin 13.7, platelets 212, sodium 141 with a potassium of 3.9, BUN is 8 and creatinine 0.56. Total bilirubin is 1.3, AST 100, ALT 54, amylase at 150 and lipase at 325 which are significantly improved from repeat a few days ago. Serum alcohol was less than 10. Chest x-ray done showing no acute cardiopulmonary process. Patient was admitted under observation for acute pancreatitis and started on fluids as well as pain management. Patient started on clear liquids and will continue gentle IV hydration for now. Patient does not currently have a primary care provider and reports has a history of high blood pressure, thyroid, hidradenitis suppurativa with kidney stones, anxiety /depression, continued ongoing nicotine use, heavy daily alcohol use, and marijuana use. 10/27. Patient seen and examined. Patient had rapid response called this morning for low heart rate and elevated blood pressure. Patient was complaining of chest pain at the time. Stat blood work was collected. EKG done showed sinus bradycardia. Patient still having abdominal pain. No nausea or vomiting 10/28. Patient seen and examined. Bradycardia is improved. Abdominal pain is also improved. CT abdomen, pelvis done showed pancreatitis involving the pancreatic tail. REVIEW OF SYSTEMS: CONSTITUTIONAL: No fever, no malaise,. CARDIOVASCULAR: As mentioned above PULMONARY: No shortness of breath, no cough, GASTROINTESTINAL: As mentioned above NEUROLOGICAL: No headaches, no weakness, PHYSICAL EXAMINATION: GENERAL: The patient is alert and oriented x3, not in any acute distress. Well developed, well nourished. HEENT: Pupils are round and equally reacting to light. EOMI. No scleral icterus. No conjunctival pallor. Normocephalic, atraumatic. No pharyngeal erythema. No thyromegaly. CARDIOVASCULAR: S1 and S2 present. No murmurs, rubs, or gallops. PULMONARY: Chest is clear to auscultation, no wheezing or crackles. ABDOMEN: Soft, nontender, nondistended, normoactive bowel sounds. No palpable organomegaly. MUSCULOSKELETAL: No joint swelling or deformity. EXTREMITIES: No cyanosis, clubbing, or pedal edema. NEUROLOGICAL: Gross neurological examination did not reveal any focal deficits. SKIN: No rashes. Assessment and plan Abdominal pain, likely secondary to acute pancreatitis Bradycardia Recent hospitalization for pancreatitis 2 days ago and left AGAINST MEDICAL ADVICE due to family issues History of continued ongoing daily alcohol use THC use Continued ongoing nicotine abuse Hypertension history Thyroid disorder History of anxiety, depression Obesity with a BMI 33.9 Monitor vital signs Monitor CBC Monitor CMP Continue telemetry monitoring troponin Ordered 2D echo Continue IV fluids Continue pain management CT abdomen, pelvis done showed pancreatitis involving the pancreatic tail. Surgery consulted Cardiology following Labs and medication were reviewed.. Continue same treatment. Continue with symptomatic treatment. Resume home medication. Monitor labs and vitals. DVT and GI prophylaxis. Further recommendations as per clinical course of the patient Dictation was produced using [employer] dictation software. please excuse any grammatical, word or spelling errors. Objective - Vital Signs Vital signs: Vital Signs Temp 98.7 F 10/28/24 04:00 Pulse 49 L 10/28/24 04:00 Resp 18 10/28/24 04:00 BP 162/107 10/28/24 04:00 Pulse Ox 98 10/28/24 04:00 FiO2 Intake & Output 10/27/24 10/28/24 10/28/24 18:59 06:59 18:59 Intake Total 150 Output Total 300 Balance -150 Weight 95.9 kg Intake: IV 150 Sodium Chloride 0.9% 1, 150 000 ml @ 75 mls/hr IV . [id number] [facility] Rx#:[id number] Output: Urine 300 Other: Voiding Method Toilet Toilet # Voids 1 # Bowel Movements 1 - Labs CBC & Chem 7: 10/27/24 06:01 10/27/24 06:01 Labs: Abnormal Lab Results - Last 24 Hours (Table) 10/27/24 Range/Units 14:14 Urine Opiates Screen Detected H (NotDetected) U Benzodiazepines Scrn Detected H (NotDetected) U Marijuana (THC) Screen Detected H (NotDetected)
[2024-10-28 09:27] LABS: Basophils % (A) 0 %; Eosinophils # (A) 0.2 k/uL (0-0.7); Eosinophils % (A) 3 %; HGB 14.1 gm/dL (11.4-16.0); Lymphocytes # (A) 1.4 k/uL (1.0-4.8); Lymphocytes % (A) 26 %; MCH 36.7 pg (25.0-35.0); MCHC 34.4 g/dL (31.0-37.0); MCV 106.6 fL (80.0-100.0); Macrocytosis Moderate; Mean Platelet Volume 8.3; Monocytes # (A) 0.5 k/uL (0-1.0); Monocytes % (A) 9 %; Neutrophils # (A) 3.3 k/uL (1.3-7.7); Neutrophils % (A) 61 %; Platelet Count 230 k/uL (150-450); RBC 3.84 m/uL (3.80-5.40); RDW 14.5 % (11.5-15.5); WBC 5.4 k/uL (3.8-10.6)
[2024-10-28 09:40] LABS: ALT 57 U/L (4-34); AST 76 U/L (14-36); African American GFR (CKD) >90 (>60 ml/min/1.73 sqM); Albumin 3.5 g/dL (3.5-5.0); Alkaline Phosphatase 85 U/L (38-126); Anion Gap 10 mmol/L; Blood Urea Nitrogen <2 mg/dL (7-17); Calcium 8.7 mg/dL (8.4-10.2); Carbon Dioxide 22 mmol/L (22-30); Chloride 104 mmol/L (98-107); Glucose 78 mg/dL (74-99); Non-African American GFR(CKD) >90 (>60 ml/min/1.73 sqM); Potassium 3.6 mmol/L (3.5-5.1); Sodium 136 mmol/L (137-145); Total Bilirubin 0.9 mg/dL (0.2-1.3); Total Protein 6.6 g/dL (6.3-8.2)
[2024-10-28 09:57] LABS: African American GFR (CKD) >90 (>60 ml/min/1.73 sqM); Anion Gap 13 mmol/L; Blood Urea Nitrogen <2 mg/dL (7-17); Calcium 9.4 mg/dL (8.4-10.2); Carbon Dioxide 21 mmol/L (22-30); Chloride 103 mmol/L (98-107); Glucose 78 mg/dL (74-99); Non-African American GFR(CKD) >90 (>60 ml/min/1.73 sqM); Potassium 3.7 mmol/L (3.5-5.1); Sodium 137 mmol/L (137-145)
--- NOTE | 2024-10-28 10:06 | P.GSCN ---
History of Present Illness Consult date: 10/28/24 Reason for Consult: Pancreatitis History of present illness: 29-year-old female with history of alcohol use. Patient has a history of pancreatitis dating back to last fall she states. Patient says that after that episode of pancreatitis she decreased her drinking significantly. Patient unfortunately had a recurrence of her pancreatitis after binge drinking on 's . Ever since ' the patient has had on and off discomfort. She was here in the hospital left AGAINST MEDICAL ADVICE since she had a care for her children. Came back to the hospital and has been hospitalized for the last 2 days. She is in the ICU as a stepdown patient because of bradycardia. Says her pain is improving. She is tolerating regular diet. Her liver enzymes are trending downwards. Her pancreatic enzymes have normalized. White blood cell count is normal. Her calcium is normal. CAT scan shows pancreatitis involving the body and tail. No ischemic or necrotic changes present. Review of Systems The patient denies any acute changes in vision or hearing, no dysphagia or odynophagia, no chest pain or shortness of breath, no dysuria or hematuria, no headache, no runny nose, no rectal bleeding or melena, no unexplained weight loss Past Medical History Past Medical History: Hypertension, Thyroid Disorder Additional Past Medical History / Comment(s): Hydradenitis suppertiva; Kidney stones, PANCREATITIS History of Any Multi-Drug Resistant Organisms: MRSA Year Discovered:: 10/09/24 MDRO Source:: buttock Past Surgical History: No Surgical Hx Reported Additional Past Surgical History / Comment(s): cyst removed from buttocks two years ago, cystoscopy with right ureteroscopy and holmium laser lithotripsy on 09/19/2020 Past Anesthesia/Blood Transfusion Reactions: No Reported Reaction Smoking Status: Current every day smoker - Past Family History Mother Family Medical History: No Reported History Medications and Allergies Home Medications Medication Instructions Recorded Confirmed Type Sulfamethox-Tmp 800-160Mg [Bactrim 1 tab PO Q12HR 10 Days #20 tab 10/10/24 10/26/24 Rx DS 800-160 mg] Pantoprazole Sodium [Protonix] 40 mg PO DAILY PRN 10/21/24 10/26/24 History cloNIDine HCL [Catapres] 0.1 mg PO DAILY 10/26/24 10/26/24 History Allergies Allergy/AdvReac Type Severity Reaction Status Date / Time No Known Allergies Allergy Verified 10/26/24 09:26 Surgical - Exam Vital Signs Temp Pulse Resp BP Pulse Ox 97.4 F L 92 20 145/98 100 10/26/24 02:36 10/26/24 02:36 10/26/24 02:36 10/26/24 02:36 10/26/24 02:36 Physical exam: General: Well-developed, well-nourished HEENT: Normocephalic, sclerae nonicteric Abdomen: Mild epigastric tenderness nondistended Extremities: No edema Neuro: Alert and oriented Results - Labs 10/28/24 08:38 10/28/24 08:38 Abnormal Lab Results - Last 24 Hours (Table) 10/27/24 10/28/24 10/28/24 Range/Units 14:14 07:54 08:38 MCV 106.6 H (80.0-100.0) fL MCH 36.7 H (25.0-35.0) pg Sodium (137-145) mmol/L Carbon Dioxide 21 L (22-30) mmol/L BUN <2 L (7-17) mg/dL Creatinine 0.51 L (0.52-1.04) mg/dL AST (14-36) U/L ALT (4-34) U/L Urine Opiates Screen Detected H (NotDetected) U Benzodiazepines Scrn Detected H (NotDetected) U Marijuana (THC) Screen Detected H (NotDetected) 10/28/24 Range/Units 08:38 MCV (80.0-100.0) fL MCH (25.0-35.0) pg Sodium 136 L (137-145) mmol/L Carbon Dioxide (22-30) mmol/L BUN <2 L (7-17) mg/dL Creatinine (0.52-1.04) mg/dL AST 76 H (14-36) U/L ALT 57 H (4-34) U/L Urine Opiates Screen (NotDetected) U Benzodiazepines Scrn (NotDetected) U Marijuana (THC) Screen (NotDetected) Diabetes panel 10/28/24 10/28/24 Range/Units 07:54 08:38 Sodium 137 136 L (137-145) mmol/L Potassium 3.7 3.6 (3.5-5.1) mmol/L Chloride 103 104 (98-107) mmol/L Carbon Dioxide 21 L 22 (22-30) mmol/L BUN <2 L <2 L (7-17) mg/dL Creatinine 0.51 L 0.56 (0.52-1.04) mg/dL Glucose 78 78 (74-99) mg/dL Calcium 9.4 8.7 (8.4-10.2) mg/dL AST 76 H (14-36) U/L ALT 57 H (4-34) U/L Alkaline Phosphatase 85 (38-126) U/L Total Protein 6.6 (6.3-8.2) g/dL Albumin 3.5 (3.5-5.0) g/dL Calcium panel 10/28/24 10/28/24 Range/Units 07:54 08:38 Calcium 9.4 8.7 (8.4-10.2) mg/dL Albumin 3.5 (3.5-5.0) g/dL Pituitary panel 10/28/24 10/28/24 Range/Units 07:54 08:38 Sodium 137 136 L (137-145) mmol/L Potassium 3.7 3.6 (3.5-5.1) mmol/L Chloride 103 104 (98-107) mmol/L Carbon Dioxide 21 L 22 (22-30) mmol/L BUN <2 L <2 L (7-17) mg/dL Creatinine 0.51 L 0.56 (0.52-1.04) mg/dL Glucose 78 78 (74-99) mg/dL Calcium 9.4 8.7 (8.4-10.2) mg/dL Adrenal panel 10/28/24 10/28/24 Range/Units 07:54 08:38 Sodium 137 136 L (137-145) mmol/L Potassium 3.7 3.6 (3.5-5.1) mmol/L Chloride 103 104 (98-107) mmol/L Carbon Dioxide 21 L 22 (22-30) mmol/L BUN <2 L <2 L (7-17) mg/dL Creatinine 0.51 L 0.56 (0.52-1.04) mg/dL Glucose 78 78 (74-99) mg/dL Calcium 9.4 8.7 (8.4-10.2) mg/dL Total Bilirubin 0.9 (0.2-1.3) mg/dL AST 76 H (14-36) U/L ALT 57 H (4-34) U/L Alkaline Phosphatase 85 (38-126) U/L Total Protein 6.6 (6.3-8.2) g/dL Albumin 3.5 (3.5-5.0) g/dL Assessment and Plan (1) Acute alcoholic pancreatitis Narrative/Plan: 29-year-old female with alcohol induced pancreatitis. Discussed with patient the importance of alcohol cessation. Continue diet. Continue analgesics. Possible discharge 24 to 48 hours if pain improved. Current Visit: No Status: Acute Code(s): K85.20 - ALCOHOL INDUCED ACUTE PANC REATITIS WITHOUT NECROSIS OR INFCT SNOMED Code(s): 722111595
[2024-10-28] MEDS ORDERED: Magnesium Replacement Protocol 1 EACH MISC MISCELLANE PRN (11:36)
[2024-10-28] MEDS: MAGNESIUM SULFATE-D5W PMX 1 GM in DEXTROSE/WATER 1 100ML.BAG IVPB ONE (12:18)
--- NOTE | 2024-10-28 14:18 | P.PN ---
Subjective Progress Note Date: 10/28/24 This is a 29-year-old female patient with a past medical history significant for excessive alcohol use as well as hypertension and marijuana use and overweight and history of pancreatitis was admitted initially with abdominal discomfort and she underwent a CT scan of the abdomen which showed pancreatitis. Her lipase was within normal limits. Her liver function test are slightly elevated. Subsequently she was admitted to the floor and she was receiving clonidine as an outpatient for hypertension but she developed bradycardia and she was asymptomatic during that episode of bradycardia. The patient subsequently transferred to the intensive care unit. Clonidine is on hold at this point. No dizziness or lightness and no presyncope or syncope no symptoms of chest pain or chest discomfort or shortness of breath and no prior cardiac history besides the hypertension. EKG showed sinus mechanism. First set of troponin came in to be unremarkable. The physical examination is remarkable for regular rhythm with a clear breathing sounds bilaterally and no edema was noted in the lower extremities. Liver function test are mildly elevated. Echo still pending. October 28, 2024 The patient was seen and evaluated this morning. She is asymptomatic. The pressure remains elevated and consistent with stage II hypertension. The echo showed normal LV systolic function with evidence of hypertensive heart disease. The physical examination is remarkable for regular rhythm with a clear breathing sounds bilaterally and no edema was noted in the lower extremities Assessment Asymptomatic sinus bradycardia which has resolved Hypertension still not under good control Alcohol use Thyroid disease with hypothyroidism Multiple comorbid conditions Plan Increase the dose of amlodipine Consider adding diuretics if the pressure remains elevated Avoid AV rosario mike agents Follow-up with the patient Objective - Vital Signs Vital signs: Vital Signs Temp 97.4 F L 10/28/24 11:00 Pulse 76 10/28/24 11:15 Resp 26 H 10/28/24 11:15 BP 161/124 10/28/24 11:00 Pulse Ox 100 10/28/24 11:00 FiO2 Intake & Output 10/27/24 10/28/24 10/28/24 18:59 06:59 18:59 Intake Total 150 Output Total 300 Balance -150 Weight 95.9 kg Intake: IV 150 Sodium Chloride 0.9% 1, 150 000 ml @ 75 mls/hr IV . [id number] [facility] Rx#:[id number] Output: Urine 300 Other: Voiding Method Toilet Toilet # Voids 1 # Bowel Movements 1 - Labs CBC & Chem 7: 10/28/24 08:38 10/28/24 08:38 Labs: Abnormal Lab Results - Last 24 Hours (Table) 10/27/24 10/28/24 10/28/24 Range/Units 14:14 07:54 08:38 MCV 106.6 H (80.0-100.0) fL MCH 36.7 H (25.0-35.0) pg Sodium (137-145) mmol/L Carbon Dioxide 21 L (22-30) mmol/L BUN <2 L (7-17) mg/dL Creatinine 0.51 L (0.52-1.04) mg/dL AST (14-36) U/L ALT (4-34) U/L Urine Opiates Screen Detected H (NotDetected) U Benzodiazepines Scrn Detected H (NotDetected) U Marijuana (THC) Screen Detected H (NotDetected) 10/28/24 Range/Units 08:38 MCV (80.0-100.0) fL MCH (25.0-35.0) pg Sodium 136 L (137-145) mmol/L Carbon Dioxide (22-30) mmol/L BUN <2 L (7-17) mg/dL Creatinine (0.52-1.04) mg/dL AST 76 H (14-36) U/L ALT 57 H (4-34) U/L Urine Opiates Screen (NotDetected) U Benzodiazepines Scrn (NotDetected) U Marijuana (THC) Screen (NotDetected)
[2024-10-28] MEDS: amLODIPine 5 MG TAB PO STA (14:27)
[2024-10-28] MEDS: HYDROcodone/APAP 5-325MG 1 EACH TAB PO PRN (14:32)
[2024-10-29 05:00] LABS: Basophils % (A) 1 %; Eosinophils # (A) 0.1 k/uL (0-0.7); Eosinophils % (A) 2 %; HCT 45.7 % (34.0-46.0); Lymphocytes # (A) 1.2 k/uL (1.0-4.8); Lymphocytes % (A) 20 %; MCH 35.6 pg (25.0-35.0); MCHC 32.8 g/dL (31.0-37.0); Macrocytosis Marked; Mean Platelet Volume 8.2; Monocytes # (A) 0.5 k/uL (0-1.0); Monocytes % (A) 9 %; Neutrophils # (A) 3.9 k/uL (1.3-7.7); Neutrophils % (A) 67 %; Platelet Count 242 k/uL (150-450); RBC 4.21 m/uL (3.80-5.40); WBC 5.8 k/uL (3.8-10.6)
[2024-10-29 05:01] LABS: MCV 108.7 fL (80.0-100.0)
[2024-10-29 05:39] LABS: ALT 65 U/L (4-34); AST 86 U/L (14-36); African American GFR (CKD) >90 (>60 ml/min/1.73 sqM); Albumin 3.6 g/dL (3.5-5.0); Alkaline Phosphatase 89 U/L (38-126); Anion Gap 9 mmol/L; Blood Urea Nitrogen <2 mg/dL (7-17); Calcium 8.9 mg/dL (8.4-10.2); Carbon Dioxide 27 mmol/L (22-30); Chloride 102 mmol/L (98-107); Glucose 92 mg/dL (74-99); Magnesium 1.8 mg/dL (1.6-2.3); Non-African American GFR(CKD) >90 (>60 ml/min/1.73 sqM); Sodium 138 mmol/L (137-145); Total Bilirubin 0.8 mg/dL (0.2-1.3); Total Protein 6.8 g/dL (6.3-8.2)
[2024-10-29 05:53] LABS: Potassium 3.1 mmol/L (3.5-5.1)
[2024-10-29] MEDS: amLODIPine 10 MG TAB PO SCH (07:43)
[2024-10-29] MEDS: POTASSIUM CHLORIDE ER 20 MEQ TAB.ER PO SCH (07:43)
[2024-10-29] MEDS: MAGNESIUM SULFATE-D5W PMX 1 GM in DEXTROSE/WATER 1 100ML.BAG IVPB ONE (07:44)
--- NOTE | 2024-10-29 10:55 | P.PN ---
Subjective Progress Note Date: 10/29/24 SURGICAL PROGRESS NOTE CHIEF COMPLAINT: Pancreatitis HISTORY OF PRESENT ILLNESS: Patient is in the ICU as overflow. She does report abdominal pain. She did not want to eat breakfast today. She did have a small episode of emesis yesterday. She also complained of a headache. Afebrile. WBC 5.8 Hgb 15 platelets 242 potassium 3.1 total bilirubin 0.8 AST 86 ALT 65 slightly elevated PHYSICAL EXAM: VITAL SIGNS: Reviewed. GENERAL: Well-developed in no acute distress. ABDOMEN: Soft. Nondistended. Epigastric tenderness with palpation NEUROLOGIC: Alert and oriented. Cranial nerves II through XII grossly intact. ASSESSMENT: 1. Acute alcoholic pancreatitis 2. Hypokalemia PLAN: -Continue pain medication as needed -Continue IV fluids -Educated patient to go slow with diet -Educated patient on alcohol cessation -Potassium being replaced -check lipase Physician Consumer Science Teacher note has been reviewed by physician. Signing provider agrees with the documented findings, assessment, and plan of care. I have personally seen and examined the patient, reviewed the ICE RINK ATTENDANT /PAs history, exam and MDM and agree with the assessment and plan as written. Based on total visit time, I have performed more than 50% of the visit. As above: Patient still having pain. She is afebrile. No tachycardia. White blood cell count normal. Lipase normal. Continue diet. If pain does not improve consider repeat CAT scan to evaluate for pseudocyst formation or ischemic changes. Objective - Vital Signs Vital signs: Vital Signs Temp 97.6 F 10/29/24 07:51 Pulse 64 10/29/24 07:51 Resp 25 H 10/29/24 08:00 BP 167/114 10/29/24 07:51 Pulse Ox 100 10/29/24 07:51 FiO2 Intake & Output 10/28/24 10/29/24 10/29/24 18:59 06:59 18:59 Intake Total 900 Balance 900 Weight 94.6 kg Intake: IV 900 Sodium Chloride 0.9% 1, 900 000 ml @ 75 mls/hr IV . [id number] [facility] Rx#:[id number] Other: Voiding Method Toilet Toilet Toilet # Voids 1 3 - Labs CBC & Chem 7: 10/29/24 04:35 10/29/24 04:35 Labs: Abnormal Lab Results - Last 24 Hours (Table) 10/29/24 10/29/24 Range/Units 04:35 04:35 MCV 108.7 H (80.0-100.0) fL MCH 35.6 H (25.0-35.0) pg Macrocytosis Marked A Potassium 3.1 L (3.5-5.1) mmol/L BUN <2 L (7-17) mg/dL AST 86 H (14-36) U/L ALT 65 H (4-34) U/L
[2024-10-29] MEDS: LACTATED RINGERS 1,000 ML IV SCH (12:00)
[2024-10-29] MEDS: LOSARTAN 50 MG TAB PO SCH (12:00)
--- NOTE | 2024-10-29 16:07 | P.PN ---
Subjective Interval History: This is a pleasant 29-year-old female who presented to the emergency department with severe abdominal pain and reports she feels her pancreatitis is acting up. Patient was recently hospitalized for pancreatitis and left AGAINST MEDICAL ADVICE reporting she had something to do for her children. Patient presented again this morning with increasing abdominal pain that is progressively getting worse and has not resolved since leaving the hospital the other day. Patient reports she did take 1 shot of alcohol at home yesterday but is not intoxicated and is not actively withdrawing. Patient reports mid epigastric upper abdominal pain with tenderness on palpation. Labs reviewed and white count is normal at 8.9, hemoglobin 13.7, platelets 212, sodium 141 with a potassium of 3.9, BUN is 8 and creatinine 0.56. Total bilirubin is 1.3, AST 100, ALT 54, amylase at 150 and lipase at 325 which are significantly improved from repeat a few days ago. Serum alcohol was less than 10. Chest x-ray done showing no acute cardiopulmo nary process. Patient was admitted under observation for acute pancreatitis and started on fluids as well as pain management. Patient started on clear liquids and will continue gentle IV hydration for now. Patient does not currently have a primary care provider and reports has a history of high blood pressure, thyroid, hidradenitis suppurativa with kidney stones, anxiety/depression, continued ongoing nicotine use, heavy daily alcohol use, and marijuana use. 10/27. Patient seen and examined. Patient had rapid response called this morning for low heart rate and elevated blood pressure. Patient was complaining of chest pain at the time. Stat blood work was collected. EKG done showed sin us bradycardia. Patient still having abdominal pain. No nausea or vomiting 10/28. Patient seen and examined. Bradycardia is improved. Abdominal pain is also improved. CT abdomen, pelvis done showed pancreatitis involving the pancreatic tail. 10/29--patient was seen and examined today. Continues complain of abdominal pain, requiring IV pain medication for pain control. Afebrile, heart rate 97, respiratory rate 16, blood pressure elevated likely component of pain. Continue Norvasc, added losartan for blood pressure control. Cardiology was following patient for bradycardia which has resolved now, echocardiogram is unremarkable. WBC 5.8, hemoglobin 15.0, MCV 108, platelet 242. BMP unremarkable, potassium 3.1. Lipase 112. Assessment and plan: Acute pancreatitis: Alcohol use disorder: Bradycardia Recent hospitalization for acute pancreatitis 2 days ago, left AMA due to family issues THC use Ongoing nicotine abuse Hypertension Thyroid disorder Depression/anxiety Morbid obesity with BMI 33.9 Cardiology consulted for bradycardia, echocardiogram done, unremarkable, avoid beta-blockers General Surgery consulted for acute pancreatitis CT abdomen pelvis showed pancreatitis involving the pancreatic tail Continue IV fluids Pain control Thiamine, folic acid, multivitamin. Monitor vitals and labs Norvasc, losartan for blood pressure control. DVT prophylaxis: Subcutaneous heparin Monitor vital signs and labs Labs and medication were reviewed. Continue same treatment. Further recommendations as per clinical course of the patient PHYSICAL EXAMINATION: GENERAL: The patient is A&O x3, NAD HEENT: EOMI, Sclerae anicteric, Moist Mucous membranes Neck: Supple, Non tender, No JVD PULMONARY: Equal breath souds B/L, No wheezing, No crackles. CARDIOVASCULAR: S1, S2 present. No murmurs, rubs, or gallops. ABDOMEN: tender, nondistended, normoactive bowel sounds. No guarding or rebound tenderness. MUSCULOSKELETAL: No edema, No cyanosis. No clubbing. Normal ROM. Intact peripheral pulses. NEUROLOGICAL: CN 2-12 grossly intact. No FND Skin: No Rash REVIEW OF SYSTEMS: CONSTITUTIONAL: No fever or chills. CARDIOVASCULAR: No chest pain, palpitations or syncope. PULMONARY: No shortness of breath, no cough, sore throat. GASTROINTESTINAL: No nausea, vomiting, diarrhea. Complains of abdominal pain. : No Dysuria, urgency, frequency. Extremities: No edema. NEUROLOGICAL: No headaches, no weakness, or numbness Dictation was produced using [employer] dictation software. please excuse any grammatical, word or spelling errors. Objective - Vital Signs Vital signs: Vital Signs Temp 98.2 F 10/29/24 11:39 Pulse 97 10/29/24 11:39 Resp 16 10/29/24 11:39 BP 150/99 10/29/24 13:02 Pulse Ox 95 10/29/24 11:39 FiO2 Intake & Output 10/28/24 10/29/24 10/29/24 18:59 06:59 18:59 Intake Total 900 130 Balance 900 130 Weight 94.6 kg Intake: IV 900 10 Invasive Line 2 10 Sodium Chloride 0.9% 1, 900 000 ml @ 75 mls/hr IV . [id number] [facility] Rx#:[id number] Oral 120 Other: Voiding Method Toilet Toilet Toilet # Voids 1 3 2 - Labs CBC & Chem 7: 10/29/24 04:35 10/29/24 04:35 Labs: Abnormal Lab Results - Last 24 Hours (Table) 10/29/24 10/29/24 Range/Units 04:35 04:35 MCV 108.7 H (80.0-100.0) fL MCH 35.6 H (25.0-35.0) pg Macrocytosis Marked A Potassium 3.1 L (3.5-5.1) mmol/L BUN <2 L (7-17) mg/dL AST 86 H (14-36) U/L ALT 65 H (4-34) U/L
[2024-10-29] MEDS: FLUCONAZOLE 150 MG TAB PO STA (18:13)
[2024-10-29] MEDS: hydroCHLOROthiazide 25 MG TAB PO SCH (18:13)
--- NOTE | 2024-10-30 08:59 | P.PN ---
Subjective Progress Note Date: 10/29/24 This is a 29-year-old female patient with a past medical history significant for excessive alcohol use as well as hypertension and marijuana use and overweight and history of pancreatitis was admitted initially with abdominal discomfort and she underwent a CT scan of the abdomen which showed pancreatitis. Her lipase was within normal limits. Her liver function test are slightly elevated. Subsequently she was admitted to the floor and she was receiving clonidine as an outpatient for hypertension but she developed bradycardia and she was asymptomatic during that episode of bradycardia. The patient subsequently transferred to the intensive care unit. Clonidine is on hold at this point. No dizziness or lightness and no presyncope or syncope no symptoms of chest pain or chest discomfort or shortness of breath and no prior cardiac history besides the hypertension. EKG showed sinus mechanism. First set of troponin came in to be unremarkable. The physical examination is remarkable for regular rhythm with a clear breathing sounds bilaterally and no edema was noted in the lower extremities. Liver function test are mildly elevated. Echo still pending. October 28, 2024 The patient was seen and evaluated this morning. She is asymptomatic. The pressure remains elevated and consistent with stage II hypertension. The echo showed normal LV systolic function with evidence of hypertensive heart disease. The physical examination is remarkable for regular rhythm with a clear breathing sounds bilaterally and no edema was noted in the lower extremities 10/29/2024 Patient is denying any chest pain chest pressure. Blood pressure still elevated. SBP around 150s. Appears euvolemic. No arrhythmias on telemetry. Assessment Asymptomatic sinus bradycardia which has resolved Hypertension still not under good control Alcohol use Thyroid disease with hypothyroidism Multiple comorbid conditions Plan Amlodipine 10 mg, losartan 50 mg. Add HCTZ 25 mg daily Avoid AV rosario mike agents Follow-up with the patient Objective - Vital Signs Vital signs: Vital Signs Temp 97.8 F 10/30/24 04:00 Pulse 78 10/30/24 04:00 Resp 18 10/30/24 04:00 BP 158/118 10/30/24 04:00 Pulse Ox 100 10/30/24 04:00 FiO2 Intake & Output 10/29/24 10/30/24 10/30/24 18:59 06:59 18:59 Intake Total 370 1500 Balance 370 1500 Weight 91 kg Intake: IV 10 Invasive Line 2 10 Intake, IV Titration 1500 Amount Lactated Ringers 1,000 ml 1500 @ 125 mls/hr IV .Q8H [facility] Rx#:[id number] Oral 360 Other: Voiding Method Toilet Toilet # Voids 2 7 - Labs CBC & Chem 7: 10/29/24 04:35 10/29/24 04:35 Labs: Abnormal Lab Results - Last 24 Hours (Table) 10/27/24 Range/Units 06:01 RBC Folate 242 L (280 - 791) ng/mL
--- NOTE | 2024-10-30 09:01 | P.PN ---
Subjective Progress Note Date: 10/30/24 This is a 29-year-old female patient with a past medical history significant for excessive alcohol use as well as hypertension and marijuana use and overweight and history of pancreatitis was admitted initially with abdominal discomfort and she underwent a CT scan of the abdomen which showed pancreatitis. Her lipase was within normal limits. Her liver function test are slightly elevated. Subsequently she was admitted to the floor and she was receiving clonidine as an outpatient for hypertension but she developed bradycardia and she was asymptomatic during that episode of bradycardia. The patient subsequently transferred to the intensive care unit. Clonidine is on hold at this point. No dizziness or lightness and no presyncope or syncope no symptoms of chest pain or chest discomfort or shortness of breath and no prior cardiac history besides the hypertension. EKG showed sinus mechanism. First set of troponin came in to be unremarkable. The physical examination is remarkable for regular rhythm with a clear breathing sounds bilaterally and no edema was noted in the lower extremities. Liver function test are mildly elevated. Echo still pending. October 28, 2024 The patient was seen and evaluated this morning. She is asymptomatic. The pressure remains elevated and consistent with stage II hypertension. The echo showed normal LV systolic function with evidence of hypertensive heart disease. The physical examination is remarkable for regular rhythm with a clear breathing sounds bilaterally and no edema was noted in the lower extremities 10/29/2024 Patient is denying any chest pain chest pressure. Blood pressure still elevated. SBP around 150s. Appears euvolemic. No arrhythmias on telemetry. 10/30/2024 Patient is seen and examined at bedside this a.m. SBP around 140s to 150s mmHg. Denies any chest pain chest pressure, appears euvolemic, no arrhythmias on telemetry. Assessment Asymptomatic sinus bradycardia which has resolved Essential hypertension Pancreatitis Alcohol use Thyroid disease with hypothyroidism Multiple comorbid conditions Plan Amlodipine 10 mg, losartan 50 mg. Add HCTZ 25 mg daily. I would recommend not to add further antihypertensives at this time. Hypertension could be related to pain from pancreatitis. Avoid AV rosario mike agents I would recommend lifestyle modification with alcohol abstinence, smoking cessation, stopping marijuana use. I recommend outpatient follow-up with PCP and cardiology for better blood pressure control and monitoring. Blood pressure continues to be elevated she would benefit from secondary hypertension workup on outpatient basis. At this time patient is cleared from cardiovascular standpoint. Cardiology team will sign off. Please reconsult us in case of any question. Objective - Vital Signs Vital signs: Vital Signs Temp 97.8 F 10/30/24 04:00 Pulse 78 10/30/24 04:00 Resp 18 10/30/24 04:00 BP 158/118 10/30/24 04:00 Pulse Ox 100 10/30/24 04:00 FiO2 Intake & Output 10/29/24 10/30/24 10/30/24 18:59 06:59 18:59 Intake Total 370 1500 Balance 370 1500 Weight 91 kg Intake: IV 10 Invasive Line 2 10 Intake, IV Titration 1500 Amount Lactated Ringers 1,000 ml 1500 @ 125 mls/hr IV .Q8H [facility] Rx#:[id number] Oral 360 Other: Voiding Method Toilet Toilet # Voids 2 7 - Labs CBC & Chem 7: 10/29/24 04:35 10/29/24 04:35 Labs: Abnormal Lab Results - Last 24 Hours (Table) 10/27/24 Range/Units 06:01 RBC Folate 242 L (280 - 791) ng/mL
[2024-10-30 09:07] LABS: Basophils % (A) 1 %; Eosinophils # (A) 0.2 k/uL (0-0.7); Eosinophils % (A) 3 %; HCT 52.2 % (34.0-46.0); HGB 17.8 gm/dL (11.4-16.0); Lymphocytes # (A) 1.3 k/uL (1.0-4.8); Lymphocytes % (A) 21 %; MCH 36.3 pg (25.0-35.0); MCHC 34.1 g/dL (31.0-37.0); MCV 106.7 fL (80.0-100.0); Macrocytosis Moderate; Mean Platelet Volume 7.6; Monocytes # (A) 0.4 k/uL (0-1.0); Monocytes % (A) 6 %; Neutrophils # (A) 4.2 k/uL (1.3-7.7); Neutrophils % (A) 68 %; Platelet Count 293 k/uL (150-450); RBC 4.89 m/uL (3.80-5.40); RDW 14.4 % (11.5-15.5); WBC 6.2 k/uL (3.8-10.6)
[2024-10-30 09:40] LABS: ALT 74 U/L (4-34); AST 84 U/L (14-36); African American GFR (CKD) >90 (>60 ml/min/1.73 sqM); Albumin 4.4 g/dL (3.5-5.0); Alkaline Phosphatase 96 U/L (38-126); Anion Gap 12 mmol/L; Blood Urea Nitrogen 2 mg/dL (7-17); Calcium 10.1 mg/dL (8.4-10.2); Carbon Dioxide 29 mmol/L (22-30); Chloride 96 mmol/L (98-107); Glucose 88 mg/dL (74-99); Magnesium 1.8 mg/dL (1.6-2.3); Non-African American GFR(CKD) >90 (>60 ml/min/1.73 sqM); Potassium 3.5 mmol/L (3.5-5.1); Sodium 137 mmol/L (137-145); Total Protein 8.1 g/dL (6.3-8.2)
[2024-10-30] MEDS: MAGNESIUM SULFATE-D5W PMX 1 GM in DEXTROSE/WATER 1 100ML.BAG IVPB ONE (11:14)
[2024-10-30] MEDS: POTASSIUM CHLORIDE ER 20 MEQ TAB.ER PO SCH (11:14)
[2024-10-30] MEDS: LOSARTAN 50 MG TAB PO STA (12:35)
--- NOTE | 2024-10-30 12:50 | P.PN ---
Subjective Progress Note Date: 10/30/24 SURGICAL PROGRESS NOTE CHIEF COMPLAINT: Pancreatitis HISTORY OF PRESENT ILLNESS: Patient currently on the cardiac floor. She reports her pain is less today. She did have nausea yesterday. She reports it is better today. Patient reports that she is tolerating liquids and able to eat a little. Afebrile. WBC 5.8 lipase normal at 112 PHYSICAL EXAM: VITAL SIGNS: Reviewed. GENERAL: Well-developed in no acute distress. ABDOMEN: Soft. Nondistended. Epigastric tenderness with palpation NEUROLOGIC: Alert and oriented. Cranial nerves II through XII grossly intact. ASSESSMENT: 1. Acute alcoholic pancreatitis PLAN: -Continue regular diet -Continue pain medication as needed -Continue IV fluids -Educated patient to go slow with diet -Educated patient on alcohol cessation Physician Bricklayer'S Assistant note has been reviewed by physician. Signing provider agrees with the documented findings, assessment, and plan of care. I have personally seen and examined the patient, reviewed the FACULTY PHYSICIAN /PAs history, exam and MDM and agree with the assessment and plan as written. Based on total visit time, I have performed more than 50% of the visit. As above: Patient's abdominal pain has improved today. Tolerating diet. Continue weaning analgesics. Continue diet. Objective - Vital Signs Vital signs: Vital Signs Temp 97.6 F 10/30/24 11:16 Pulse 77 10/30/24 11:16 Resp 18 10/30/24 11:16 BP 143/98 10/30/24 12:34 Pulse Ox 99 10/30/24 11:16 FiO2 Intake & Output 10/29/24 10/30/24 10/30/24 18:59 06:59 18:59 Intake Total 370 1500 250 Balance 370 1500 250 Weight 91 kg Intake: IV 10 10 Invasive Line 2 10 10 Intake, IV Titration 1500 Amount Lactated Ringers 1,000 ml 1500 @ 125 mls/hr IV .Q8H [facility] Rx#:[id number] Oral 360 240 Other: Voiding Method Toilet Toilet Toilet # Voids 2 7 3 - Labs CBC & Chem 7: 10/30/24 08:43 10/30/24 08:43 Labs: Abnormal Lab Results - Last 24 Hours (Table) 10/27/24 10/30/24 10/30/24 Range/Units 06:01 08:43 08:43 Hgb 17.8 H (11.4-16.0) gm/dL Hct 52.2 H (34.0-46.0) % MCV 106.7 H (80.0-100.0) fL MCH 36.3 H (25.0-35.0) pg Chloride 96 L (98-107) mmol/L BUN 2 L (7-17) mg/dL AST 84 H (14-36) U/L ALT 74 H (4-34) U/L RBC Folate 242 L (280 - 791) ng/mL
--- NOTE | 2024-10-30 13:11 | P.PN ---
Subjective Interval History: This is a pleasant 29-year-old female who presented to the emergency department with severe abdominal pain and reports she feels her pancreatitis is acting up. Patient was recently hospitalized for pancreatitis and left AGAINST MEDICAL ADVICE reporting she had something to do for her children. Patient presented again this morning with increasing abdominal pain that is progressively getting worse and has not resolved since leaving the hospital the other day. Patient reports she did take 1 shot of alcohol at home yesterday but is not intoxicated and is not actively withdrawing. Patient reports mid epigastric upper abdominal pain with tenderness on palpation. Labs reviewed and white count is normal at 8.9, hemoglobin 13.7, platelets 212, sodium 141 with a potassium of 3.9, BUN is 8 and creatinine 0.56. Total bilirubin is 1.3, AST 100, ALT 54, amylase at 150 and lipase at 325 which are significantly improved from repeat a few days ago. Serum alcohol was less than 10. Chest x-ray done showing no acute cardiopulmo nary process. Patient was admitted under observation for acute pancreatitis and started on fluids as well as pain management. Patient started on clear liquids and will continue gentle IV hydration for now. Patient does not currently have a primary care provider and reports has a history of high blood pressure, thyroid, hidradenitis suppurativa with kidney stones, anxiety/depression, continued ongoing nicotine use, heavy daily alcohol use, and marijuana use. 10/27. Patient seen and examined. Patient had rapid response called this morning for low heart rate and elevated blood pressure. Patient was complaining of chest pain at the time. Stat blood work was collected. EKG done showed sin us bradycardia. Patient still having abdominal pain. No nausea or vomiting 10/28. Patient seen and examined. Bradycardia is improved. Abdominal pain is also improved. CT abdomen, pelvis done showed pancreatitis involving the pancreatic tail. 10/29--patient was seen and examined today. Continues complain of abdominal pain, requiring IV pain medication for pain control. Afebrile, heart rate 97, respiratory rate 16, blood pressure elevated likely component of pain. Continue Norvasc, added losartan for blood pressure control. Cardiology was following patient for bradycardia which has resolved now, echocardiogram is unremarkable. WBC 5.8, hemoglobin 15.0, MCV 108, platelet 242. BMP unremarkable, potassium 3.1. Lipase 112. 4/1patient was seen and examined today. Patient continues complain of abdominal pain, tolerating p.o. intake. Blood pressure still elevated, on amlodipine losartan and hydrochlorothiazide, will increase losartan dose to 100 mg daily. Will continue IV fluids. WBC 6.2, hemoglobin 17.8, platelet 293. CMP unremarkable except AST 84, ALT 74, relatively stable. Assessment and plan: Acute pancreatitis: Alcohol use disorder: Bradycardia Recent hospitalization for acute pancreatitis 2 days ago, left AMA due to family issues THC use Ongoing nicotine abuse Hypertension Thyroid disorder Depression/anxiety Morbid obesity with BMI 33.9 Cardiology consulted for bradycardia, echocardiogram done, unremarkable, avoid beta-blockers General Surgery consulted for acute pancreatitis CT abdomen pelvis showed pancreatitis involving the pancreatic tail Continue IV fluids Pain control Thiamine, folic acid, multivitamin. Monitor vitals and labs Norvasc, losartan, hydrochlorothiazide for blood pressure control. DVT prophylaxis: Subcutaneous heparin Monitor vital signs and labs Labs and medication were reviewed. Continue same treatment. Further recommendations as per clinical course of the patient PHYSICAL EXAMINATION: GENERAL: The patient is A&O x3, NAD HEENT: EOMI, Sclerae anicteric, Moist Mucous membranes Neck: Supple, Non tender, No JVD PULMONARY: Equal breath souds B/L, No wheezing, No crackles. CARDIOVASCULAR: S1, S2 present. No murmurs, rubs, or gallops. ABDOMEN: tender, nondistended, normoactive bowel sounds. No guarding or rebound tenderness. MUSCULOSKELETAL: No edema, No cyanosis. No clubbing. Normal ROM. Intact peripheral pulses. NEUROLOGICAL: CN 2-12 grossly intact. No FND Skin: No Rash REVIEW OF SYSTEMS: CONSTITUTIONAL: No fever or chills. CARDIOVASCULAR: No chest pain, palpitations or syncope. PULMONARY: No shortness of breath, no cough, sore throat. GASTROINTESTINAL: No nausea, vomiting, diarrhea. Complains of abdominal pain. : No Dysuria, urgency, frequency. Extremities: No edema. NEUROLOGICAL: No headaches, no weakness, or numbness Dictation was produced using [employer] dictation software. please excuse any grammatical, word or spelling errors. Objective - Vital Signs Vital signs: Vital Signs Temp 97.6 F 10/30/24 11:16 Pulse 77 10/30/24 11:16 Resp 18 10/30/24 11:16 BP 143/98 10/30/24 12:34 Pulse Ox 99 10/30/24 11:16 FiO2 Intake & Output 10/29/24 10/30/24 10/30/24 18:59 06:59 18:59 Intake Total 370 1500 250 Balance 370 1500 250 Weight 91 kg Intake: IV 10 10 Invasive Line 2 10 10 Intake, IV Titration 1500 Amount Lactated Ringers 1,000 ml 1500 @ 125 mls/hr IV .Q8H [facility] Rx#:[id number] Oral 360 240 Other: Voiding Method Toilet Toilet Toilet # Voids 2 7 3 - Labs CBC & Chem 7: 10/30/24 08:43 10/30/24 08:43 Labs: Abnormal Lab Results - Last 24 Hours (Table) 10/27/24 10/30/24 10/30/24 Range/Units 06:01 08:43 08:43 Hgb 17.8 H (11.4-16.0) gm/dL Hct 52.2 H (34.0-46.0) % MCV 106.7 H (80.0-100.0) fL MCH 36.3 H (25.0-35.0) pg Chloride 96 L (98-107) mmol/L BUN 2 L (7-17) mg/dL AST 84 H (14-36) U/L ALT 74 H (4-34) U/L RBC Folate 242 L (280 - 791) ng/mL
[2024-10-31] MEDS: hydrALAZINE HCL 20 MG/ML 1 ML VIAL IVP PRN (03:52)
[2024-10-31 08:38] LABS: Basophils % (A) 0 %; Eosinophils # (A) 0.2 k/uL (0-0.7); Eosinophils % (A) 3 %; HCT 53.8 % (34.0-46.0); HGB 18.2 gm/dL (11.4-16.0); Lymphocytes # (A) 1.4 k/uL (1.0-4.8); Lymphocytes % (A) 19 %; MCH 36.3 pg (25.0-35.0); MCHC 33.8 g/dL (31.0-37.0); MCV 107.2 fL (80.0-100.0); Macrocytosis Moderate; Mean Platelet Volume 7.8; Monocytes # (A) 0.6 k/uL (0-1.0); Monocytes % (A) 8 %; Neutrophils # (A) 5.1 k/uL (1.3-7.7); Neutrophils % (A) 69 %; Platelet Count 307 k/uL (150-450); RBC 5.02 m/uL (3.80-5.40); RDW 14.3 % (11.5-15.5); WBC 7.3 k/uL (3.8-10.6)
[2024-10-31 08:52] LABS: ALT 88 U/L (4-34); AST 100 U/L (14-36); African American GFR (CKD) >90 (>60 ml/min/1.73 sqM); Albumin 4.6 g/dL (3.5-5.0); Alkaline Phosphatase 89 U/L (38-126); Anion Gap 10 mmol/L; Blood Urea Nitrogen 5 mg/dL (7-17); Calcium 10.3 mg/dL (8.4-10.2); Carbon Dioxide 33 mmol/L (22-30); Chloride 95 mmol/L (98-107); Glucose 81 mg/dL (74-99); Non-African American GFR(CKD) >90 (>60 ml/min/1.73 sqM); Potassium 4.3 mmol/L (3.5-5.1); Sodium 138 mmol/L (137-145); Total Bilirubin 1.1 mg/dL (0.2-1.3); Total Protein 8.5 g/dL (6.3-8.2)
[2024-10-31] MEDS: LOSARTAN 50 MG TAB PO SCH (09:22)
--- NOTE | 2024-10-31 12:29 | P.PN ---
Subjective Progress Note Date: 10/31/24 SURGICAL PROGRESS NOTE CHIEF COMPLAINT: Pancreatitis HISTORY OF PRESENT ILLNESS: Patient currently on the cardiac floor. Patient reports abdominal pain is improving. She had some nausea last night after eating. She slept through breakfast this morning but did eat some cereal later in the morning. And is tolerated it. Afebrile. PHYSICAL EXAM: VITAL SIGNS: Reviewed. GENERAL: Well-developed in no acute distress. ABDOMEN: Soft. Nondistended. mild Epigastric tenderness with palpation NEUROLOGIC: Alert and oriented. Cranial nerves II through XII grossly intact. ASSESSMENT: 1. Acute alcoholic pancreatitis PLAN: -Continue regular diet -Continue to wean pain medication -Educated patient on alcohol cessation Physician Tacking Stitch Remover note has been reviewed by physician. Signing provider agrees with the documented findings, assessment, and plan of care. Objective - Vital Signs Vital signs: Vital Signs Temp 97.9 F 10/31/24 04:00 Pulse 85 10/31/24 08:00 Resp 18 10/31/24 08:00 BP 150/99 10/31/24 08:00 Pulse Ox 99 10/31/24 04:00 FiO2 Intake & Output 10/30/24 10/31/24 10/31/24 18:59 06:59 18:59 Intake Total 500 2770 10 Balance 500 2770 10 Weight 90.8 kg Intake: IV 20 20 10 Invasive Line 2 20 20 10 Intake, IV Titration 2750 Amount Lactated Ringers 1,000 ml 2750 @ 125 mls/hr IV .[facility]H [facility] Rx#:[id number] Oral 480 Other: Voiding Method Toilet Toilet # Voids 3 2 - Labs CBC & Chem 7: 10/31/24 07:47 10/31/24 07:47 Labs: Abnormal Lab Results - Last 24 Hours (Table) 10/31/24 10/31/24 Range/Units 07:47 07:47 Hgb 18.2 H (11.4-16.0) gm/dL Hct 53.8 H (34.0-46.0) % MCV 107.2 H (80.0-100.0) fL MCH 36.3 H (25.0-35.0) pg Chloride 95 L (98-107) mmol/L Carbon Dioxide 33 H (22-30) mmol/L BUN 5 L (7-17) mg/dL Calcium 10.3 H (8.4-10.2) mg/dL AST 100 H (14-36) U/L ALT 88 H (4-34) U/L Total Protein 8.5 H (6.3-8.2) g/dL
--- NOTE | 2024-10-31 14:24 | P.PN ---
Subjective Interval History: This is a pleasant 29-year-old female who presented to the emergency department with severe abdominal pain and reports she feels her pancreatitis is acting up. Patient was recently hospitalized for pancreatitis and left AGAINST MEDICAL ADVICE reporting she had something to do for her children. Patient presented again this morning with increasing abdominal pain that is progressively getting worse and has not resolved since leaving the hospital the other day. Patient reports she did take 1 shot of alcohol at home yesterday but is not intoxicated and is not actively withdrawing. Patient reports mid epigastric upper abdominal pain with tenderness on palpation. Labs reviewed and white count is normal at 8.9, hemoglobin 13.7, platelets 212, sodium 141 with a potassium of 3.9, BUN is 8 and creatinine 0.56. Total bilirubin is 1.3, AST 100, ALT 54, amylase at 150 and lipase at 325 which are significantly improved from repeat a few days ago. Serum alcohol was less than 10. Chest x-ray done showing no acute cardiopulmo nary process. Patient was admitted under observation for acute pancreatitis and started on fluids as well as pain management. Patient started on clear liquids and will continue gentle IV hydration for now. Patient does not currently have a primary care provider and reports has a history of high blood pressure, thyroid, hidradenitis suppurativa with kidney stones, anxiety/depression, continued ongoing nicotine use, heavy daily alcohol use, and marijuana use. 10/27. Patient seen and examined. Patient had rapid response called this morning for low heart rate and elevated blood pressure. Patient was complaining of chest pain at the time. Stat blood work was collected. EKG done showed sin us bradycardia. Patient still having abdominal pain. No nausea or vomiting 10/28. Patient seen and examined. Bradycardia is improved. Abdominal pain is also improved. CT abdomen, pelvis done showed pancreatitis involving the pancreatic tail. 10/29--patient was seen and examined today. Continues complain of abdominal pain, requiring IV pain medication for pain control. Afebrile, heart rate 97, respiratory rate 16, blood pressure elevated likely component of pain. Continue Norvasc, added losartan for blood pressure control. Cardiology was following patient for bradycardia which has resolved now, echocardiogram is unremarkable. WBC 5.8, hemoglobin 15.0, MCV 108, platelet 242. BMP unremarkable, potassium 3.1. Lipase 112. 4/1patient was seen and examined today. Patient continues complain of abdominal pain, tolerating p.o. intake. Blood pressure still elevated, on amlodipine losartan and hydrochlorothiazide, will increase losartan dose to 100 mg daily. Will continue IV fluids. WBC 6.2, hemoglobin 17.8, platelet 293. CMP unremarkable except AST 84, ALT 74, relatively stable. 10/31--patient was seen and examined today. Continues complain of nausea and abdominal pain. Patient is afebrile, heart rate 77, respiratory rate 18, blood pressure improving 152/92, saturating 98% on room air. Platelet normal 7.3. Hemoglobin 18.2, platelet 307. BUN 5, creatinine 0.69. AST 100 ALT 88, slightly up from yesterday. Will continue IV fluids, monitor vitals and labs. Assessment and plan: Acute pancreatitis: Alcohol use disorder: Bradycardia Recent hospitalization for acute pancreatitis 2 days ago, left AMA due to family issues THC use Ongoing nicotine abuse Hypertension Thyroid disorder Depression/anxiety Morbid obesity with BMI 33.9 Cardiology consulted for bradycardia, echocardiogram done, unremarkable, avoid beta-blockers General Surgery consulted for acute pancreatitis CT abdomen pelvis showed pancreatitis involving the pancreatic tail Continue IV fluids Pain control Thiamine, folic acid, multivitamin. Monitor vitals and labs Norvasc, losartan, hydrochlorothiazide for blood pressure control. DVT prophylaxis: Subcutaneous heparin Monitor vital signs and labs Labs and medication were reviewed. Continue same treatment. Further recommendations as per clinical course of the patient PHYSICAL EXAMINATION: GENERAL: The patient is A&O x3, NAD HEENT: EOMI, Sclerae anicteric, Moist Mucous membranes Neck: Supple, Non tender, No JVD PULMONARY: Equal breath souds B/L, No wheezing, No crackles. CARDIOVASCULAR: S1, S2 present. No murmurs, rubs, or gallops. ABDOMEN: tender, nondistended, normoactive bowel sounds. No guarding or rebound tenderness. MUSCULOSKELETAL: No edema, No cyanosis. No clubbing. Normal ROM. Intact periph eral pulses. NEUROLOGICAL: CN 2-12 grossly intact. No FND Skin: No Rash REVIEW OF SYSTEMS: CONSTITUTIONAL: No fever or chills. CARDIOVASCULAR: No chest pain, palpitations or syncope. PULMONARY: No shortness of breath, no cough, sore throat. GASTROINTESTINAL: No nausea, vomiting, diarrhea. Complains of abdominal pain. : No Dysuria, urgency, frequency. Extremities: No edema. NEUROLOGICAL: No headaches, no weakness, or numbness Dictation was produced using [employer] dictation software. please excuse any grammatical, word or spelling errors. Objective - Vital Signs Vital signs: Vital Signs Temp 97.9 F 10/31/24 04:00 Pulse 77 10/31/24 13:45 Resp 18 10/31/24 12:00 BP 152/92 10/31/24 12:00 Pulse Ox 98 10/31/24 12:00 FiO2 Intake & Output 10/30/24 10/31/24 10/31/24 18:59 06:59 18:59 Intake Total 500 2770 20 Balance 500 2770 20 Weight 90.8 kg Intake: IV 20 20 20 Invasive Line 2 20 20 20 Intake, IV Titration 2750 Amount Lactated Ringers 1,000 ml 2750 @ 125 mls/hr IV .Q8H [facility] Rx#:[id number] Oral 480 Other: Voiding Method Toilet Toilet # Voids 3 2 - Labs CBC & Chem 7: 10/31/24 07:47 10/31/24 07:47 Labs: Abnormal Lab Results - Last 24 Hours (Table) 10/31/24 10/31/24 Range/Units 07:47 07:47 Hgb 18.2 H (11.4-16.0) gm/dL Hct 53.8 H (34.0-46.0) % MCV 107.2 H (80.0-100.0) fL MCH 36.3 H (25.0-35.0) pg Chloride 95 L (98-107) mmol/L Carbon Dioxide 33 H (22-30) mmol/L BUN 5 L (7-17) mg/dL Calcium 10.3 H (8.4-10.2) mg/dL AST 100 H (14-36) U/L ALT 88 H (4-34) U/L Total Protein 8.5 H (6.3-8.2) g/dL
[2024-10-31] MEDS: IOPAMIDOL CONTRAST (ORAL USE) VIAL PO PRN (15:00)
--- NOTE | 2024-10-31 17:05 | CT ---
EXAMINATION TYPE: CT abdomen pelvis w con DATE OF EXAM: 10/31/2024 COMPARISON: CT 4 days earlier. CLINICAL INDICATION: Female, 29 years old with history of epigastric pain, pancreatitis, Epigastric p ain, pancreatitis., TECHNIQUE: CT scan of the abdomen and pelvis is performed with IV Contrast, patient injected with 100 ml mL of I sovue 300., (none if empty) Oral contrast used: with Oral Contrast (none if empty) CT DLP: 1356.7 mGycm, Automated exposure control for dose reduction was used. FINDINGS: LUNG BASES: No significant abnormality is appreciated. LIVER/GB: Liver remains heterogeneously hypodense suggestive of diffuse fatty infiltrative hepatocell ular disease. PANCREAS: There is persistent moderate to severe ill-defined fluid and fat stranding surrounding the distal pancreas similar to most recent CT extending inferiorly. No well-formed fluid collection ident ified. Some areas of nonenhancement in the pancreatic tail are now felt present. No ductal dilatation . SPLEEN: No significant abnormality is seen. ADRENALS: No significant abnormality is seen. KIDNEYS: No significant abnormality is seen. BOWEL: Oral contrast reaches distal jejunal levels. Mild wall thickening of the duodenal sweep. No ab normal small or large bowel dilatation UTERUS/ADNEXA: No gross abnormality seen. LYMPH NODES: No greater than 1cm abdominal or pelvic lymph nodes are appreciated. OSSEOUS STRUCTURES: No significant abnormality is seen. OTHER: No significant additional abnormality is seen. IMPRESSION: Findings consistent with fairly severe acute pancreatitis remain present greatest distall y. There is now nonenhancement of the pancreatic tail consistent with necrotizing pancreatitis. [facility], , 10/31/2024 5:03 PM
[2024-11-01 07:39] LABS: Basophils % (A) 0 %; Eosinophils # (A) 0.3 k/uL (0-0.7); Eosinophils % (A) 4 %; HCT 46.9 % (34.0-46.0); HGB 16.3 gm/dL (11.4-16.0); Lymphocytes # (A) 1.8 k/uL (1.0-4.8); Lymphocytes % (A) 25 %; MCH 36.9 pg (25.0-35.0); MCHC 34.7 g/dL (31.0-37.0); MCV 106.3 fL (80.0-100.0); Macrocytosis Moderate; Monocytes # (A) 0.7 k/uL (0-1.0); Monocytes % (A) 9 %; Neutrophils # (A) 4.2 k/uL (1.3-7.7); Neutrophils % (A) 60 %; Platelet Count 265 k/uL (150-450); RBC 4.41 m/uL (3.80-5.40); RDW 14.2 % (11.5-15.5); WBC 7.1 k/uL (3.8-10.6)
[2024-11-01 07:53] LABS: ALT 68 U/L (4-34); AST 70 U/L (14-36); African American GFR (CKD) >90 (>60 ml/min/1.73 sqM); Albumin 4.1 g/dL (3.5-5.0); Alkaline Phosphatase 81 U/L (38-126); Anion Gap 10 mmol/L; Blood Urea Nitrogen 8 mg/dL (7-17); Calcium 9.8 mg/dL (8.4-10.2); Carbon Dioxide 30 mmol/L (22-30); Chloride 97 mmol/L (98-107); Glucose 81 mg/dL (74-99); Non-African American GFR(CKD) >90 (>60 ml/min/1.73 sqM); Potassium 4.4 mmol/L (3.5-5.1); Sodium 137 mmol/L (137-145); Total Protein 7.2 g/dL (6.3-8.2)
[2024-11-01 09:24] LABS: C Reactive Protein <0.5 mg/dL (<1.0)
[2024-11-01 13:31] VITALS: BMI 32.2
--- NOTE | 2024-11-01 14:33 | P.PN ---
Subjective Progress Note Date: 11/01/24 SURGICAL PROGRESS NOTE CHIEF COMPLAINT: Pancreatitis HISTORY OF PRESENT ILLNESS: Patient continues to complain of abdominal pain. She has had no further episodes of vomiting. She reports her pain is about the same as yesterday radiates to the back. She was able to eat small amounts of food yesterday. CT scan abdomen and pelvis reports findings consistent fair with fairly severe acute pancreatitis remain present greatest distally. Now nonenhancement of the pancreatic tail consistent with necrotizing pancreatitis. Patient initially made n.p.o. this morning PHYSICAL EXAM: VITAL SIGNS: Reviewed. GENERAL: Well-developed in no acute distress. ABDOMEN: Soft. Nondistended. Epigastric tenderness with palpation NEUROLOGIC: Alert and oriented. Cranial nerves II through XII grossly intact. ASSESSMENT: 1. Acute alcoholic pancreatitis. CT scan showing severe pancreatitis and nonenhancement of the pancreatic tail consistent with necrotizing pancreatitis PLAN: -Patient seen by surgeon and diet advanced to low-fat -Continue to monitor -Continue IV fluids -Continue pain management Physician Conservation Science Officer note has been reviewed by physician. Signing provider agrees with the documented findings, assessment, and plan of care. Objective - Vital Signs Vital signs: Vital Signs Temp 97.6 F 11/01/24 12:00 Pulse 88 11/01/24 12:00 Resp 16 11/01/24 12:00 BP 144/92 11/01/24 12:00 Pulse Ox 99 11/01/24 12:00 FiO2 Intake & Output 10/31/24 11/01/24 11/01/24 18:59 06:59 18:59 Intake Total 20 1118 Balance 20 1118 Weight 90.6 kg 90.6 kg Intake: IV 20 Invasive Line 2 20 Intake, IV Titration 1000 Amount Lactated Ringers 1,000 ml 1000 @ 125 mls/hr IV .Q8H [facility] Rx#:[id number] Oral 118 Other: Voiding Method Toilet Toilet # Voids 2 - Labs CBC & Chem 7: 11/01/24 06:45 11/01/24 06:45 Labs: Abnormal Lab Results - Last 24 Hours (Table) 11/01/24 11/01/24 Range/Units 06:45 06:45 Hgb 16.3 H (11.4-16.0) gm/dL Hct 46.9 H (34.0-46.0) % MCV 106.3 H (80.0-100.0) fL MCH 36.9 H (25.0-35.0) pg Chloride 97 L (98-107) mmol/L AST 70 H (14-36) U/L ALT 68 H (4-34) U/L
--- NOTE | 2024-11-01 14:58 | P.PN ---
Subjective Interval History: This is a pleasant 29-year-old female who presented to the emergency department with severe abdominal pain and reports she feels her pancreatitis is acting up. Patient was recently hospitalized for pancreatitis and left AGAINST MEDICAL ADVICE reporting she had something to do for her children. Patient presented again this morning with increasing abdominal pain that is progressively getting worse and has not resolved since leaving the hospital the other day. Patient reports she did take 1 shot of alcohol at home yesterday but is not intoxicated and is not actively withdrawing. Patient reports mid epigastric upper abdominal pain with tenderness on palpation. Labs reviewed and white count is normal at 8.9, hemoglobin 13.7, platelets 212, sodium 141 with a potassium of 3.9, BUN is 8 and creatinine 0.56. Total bilirubin is 1.3, AST 100, ALT 54, amylase at 150 and lipase at 325 which are significantly improved from repeat a few days ago. Serum alcohol was less than 10. Chest x-ray done showing no acute cardiopulmo nary process. Patient was admitted under observation for acute pancreatitis and started on fluids as well as pain management. Patient started on clear liquids and will continue gentle IV hydration for now. Patient does not currently have a primary care provider and reports has a history of high blood pressure, thyroid, hidradenitis suppurativa with kidney stones, anxiety/depression, continued ongoing nicotine use, heavy daily alcohol use, and marijuana use. 10/27. Patient seen and examined. Patient had rapid response called this morning for low heart rate and elevated blood pressure. Patient was complaining of chest pain at the time. Stat blood work was collected. EKG done showed sin us bradycardia. Patient still having abdominal pain. No nausea or vomiting 10/28. Patient seen and examined. Bradycardia is improved. Abdominal pain is also improved. CT abdomen, pelvis done showed pancreatitis involving the pancreatic tail. 10/29--patient was seen and examined today. Continues complain of abdominal pain, requiring IV pain medication for pain control. Afebrile, heart rate 97, respiratory rate 16, blood pressure elevated likely component of pain. Continue Norvasc, added losartan for blood pressure control. Cardiology was following patient for bradycardia which has resolved now, echocardiogram is unremarkable. WBC 5.8, hemoglobin 15.0, MCV 108, platelet 242. BMP unremarkable, potassium 3.1. Lipase 112. 4/1patient was seen and examined today. Patient continues complain of abdominal pain, tolerating p.o. intake. Blood pressure still elevated, on amlodipine losartan and hydrochlorothiazide, will increase losartan dose to 100 mg daily. Will continue IV fluids. WBC 6.2, hemoglobin 17.8, platelet 293. CMP unremarkable except AST 84, ALT 74, relatively stable. 10/31--patient was seen and examined today. Continues complain of nausea and abdominal pain. Patient is afebrile, heart rate 77, respiratory rate 18, blood pressure improving 152/92, saturating 98% on room air. Platelet normal 7.3. Hemoglobin 18.2, platelet 307. BUN 5, creatinine 0.69. AST 100 ALT 88, slightly up from yesterday. Will continue IV fluids, monitor vitals and labs. 11/01--patient was seen and examined today. Continue complain of abdominal pain. No further episodes of nausea vomiting. 10/31 showed fairly severe acute pancreatitis remains present greatest distally, now nonenhancement of the pancreatic tail consistent with necrotizing pancreatitis. CRP unremarkable. Hemoglobin hematocrit stable slightly down today. BUN/creatinine unremarkable. AST ALT trending down. General surgery following. On low-fat diet. Assessment and plan: Acute pancreatitis: Alcohol use disorder: Bradycardia Recent hospitalization for acute pancreatitis 2 days ago, left AMA due to family issues THC use Ongoing nicotine abuse Hypertension Thyroid disorder Depression/anxiety Morbid obesity with BMI 33.9 Cardiology consulted for bradycardia, echocardiogram done, unremarkable, avoid beta-blockers General Surgery consulted for acute pancreatitis CT abdomen pelvis showed pancreatitis involving the pancreatic tail Repeat CT abdomen pelvis 10/[address] abdomen pelvis showed fairly severe acute pancreatitis remains present greatest distally, now nonenhancement of the pancreatic tail consistent with necrotizing pancreatitis Continue IV fluids Pain control Low-fat diet. Thiamine, folic acid, multivitamin. Monitor vitals and labs Norvasc, losartan, hydrochlorothiazide for blood pressure control. DVT prophylaxis: Subcutaneous heparin Monitor vital signs and labs Labs and medication were reviewed. Continue same treatment. Further recommendations as per clinical course of the patient PHYSICAL EXAMINATION: GENERAL: The patient is A&O x3, NAD HEENT: EOMI, Sclerae anicteric, Moist Mucous membranes Neck: Supple, Non tender, No JVD PULMONARY: Equal breath souds B/L, No wheezing, No crackles. CARDIOVASCULAR: S1, S2 present. No murmurs, rubs, or gallops. ABDOMEN: tender, nondistended, normoactive bowel sounds. No guarding or rebound tenderness. MUSCULOSKELETAL: No edema, No cyanosis. No clubbing. Normal ROM. Intact peripheral pulses. NEUROLOGICAL: CN 2-12 grossly intact. No FND Skin: No Rash REVIEW OF SYSTEMS: CONSTITUTIONAL: No fever or chills. CARDIOVASCULAR: No chest pain, palpitations or syncope. PULMONARY: No shortness of breath, no cough, sore throat. GASTROINTESTINAL: No nausea, vomiting, diarrhea. Complains of abdominal pain. : No Dysuria, urgency, frequency. Extremities: No edema. NEUROLOGICAL: No headaches, no weakness, or numbness Dictation was produced using [employer] dictation software. please excuse any grammatical, word or spelling errors. Objective - Vital Signs Vital signs: Vital Signs Temp 97.6 F 11/01/24 12:00 Pulse 88 11/01/24 14:00 Resp 16 11/01/24 14:00 BP 144/92 11/01/24 12:00 Pulse Ox 99 11/01/24 12:00 FiO2 Intake & Output 10/31/24 11/01/24 11/01/24 18:59 06:59 18:59 Intake Total 20 1118 Balance 20 1118 Weight 90.6 kg 90.6 kg Intake: IV 20 Invasive Line 2 20 Intake, IV Titration 1000 Amount Lactated Ringers 1,000 ml 1000 @ 125 mls/hr IV .Q[facility]H [facility] Rx#:[id number] Oral 118 Other: Voiding Method Toilet Toilet # Voids 2 - Labs CBC & Chem 7: 11/01/24 06:45 11/01/24 06:45 Labs: Abnormal Lab Results - Last 24 Hours (Table) 11/01/24 11/01/24 Range/Units 06:45 06:45 Hgb 16.3 H (11.4-16.0) gm/dL Hct 46.9 H (34.0-46.0) % MCV 106.3 H (80.0-100.0) fL MCH 36.9 H (25.0-35.0) pg Chloride 97 L (98-107) mmol/L AST 70 H (14-36) U/L ALT 68 H (4-34) U/L
[2024-11-02 07:13] LABS: Basophils % (A) 1 %; Eosinophils # (A) 0.2 k/uL (0-0.7); Eosinophils % (A) 3 %; HCT 52.3 % (34.0-46.0); HGB 17.6 gm/dL (11.4-16.0); Lymphocytes # (A) 1.7 k/uL (1.0-4.8); Lymphocytes % (A) 27 %; MCH 36.6 pg (25.0-35.0); MCHC 33.7 g/dL (31.0-37.0); MCV 108.5 fL (80.0-100.0); Macrocytosis Marked; Mean Platelet Volume 7.8; Monocytes # (A) 0.5 k/uL (0-1.0); Monocytes % (A) 7 %; Neutrophils # (A) 3.9 k/uL (1.3-7.7); Neutrophils % (A) 61 %; Platelet Count 285 k/uL (150-450); RBC 4.82 m/uL (3.80-5.40); RDW 14.2 % (11.5-15.5); WBC 6.4 k/uL (3.8-10.6)
[2024-11-02 07:33] LABS: ALT 76 U/L (4-34); AST 80 U/L (14-36); African American GFR (CKD) >90 (>60 ml/min/1.73 sqM); Albumin 4.3 g/dL (3.5-5.0); Alkaline Phosphatase 77 U/L (38-126); Anion Gap 8 mmol/L; Blood Urea Nitrogen 8 mg/dL (7-17); Calcium 10.4 mg/dL (8.4-10.2); Carbon Dioxide 35 mmol/L (22-30); Chloride 96 mmol/L (98-107); Glucose 91 mg/dL (74-99); Lipase 70 U/L (23-300); Non-African American GFR(CKD) >90 (>60 ml/min/1.73 sqM); Potassium 4.4 mmol/L (3.5-5.1); Sodium 139 mmol/L (137-145); Total Bilirubin 1.2 mg/dL (0.2-1.3); Total Protein 7.8 g/dL (6.3-8.2)
--- NOTE | 2024-11-02 11:47 | P.PN ---
Subjective Progress Note Date: 11/02/24 SURGICAL PROGRESS NOTE CHIEF COMPLAINT: Pancreatitis HISTORY OF PRESENT ILLNESS: Patient continues to complain of abdominal pain. Patient reports tolerating the low-fat diet. She reports the pain is not increasing and is staying the same. She denies any nausea or vomiting. She is still requiring the IV pain medication. Afebrile. WBC 6.4 lipase 70 AST 80 ALT 76 PHYSICAL EXAM: VITAL SIGNS: Reviewed. GENERAL: Well-developed in no acute distress. ABDOMEN: Soft. Nondistended. Epigastric tenderness with palpation NEUROLOGIC: Alert and oriented. Cranial nerves II through XII grossly intact. ASSESSMENT: 1. Acute alcoholic pancreatitis. CT scan showing severe pancreatitis and nonenhancement of the pancreatic tail consistent with necrotizing pancreatitis PLAN: -Continue low-fat diet -Continue IV fluids -Continue pain management -No surgical intervention planned Physician [employer]ation Support Worker note has been reviewed by physician. Signing provider agrees with the documented findings, assessment, and plan of care. I have personally seen and examined the patient, reviewed the MEAT PRESS OPERATOR /PAs history, e xam and MDM and agree with the assessment and plan as written. Based on total visit time, I have performed more than 50% of the visit. As above: Patient says her pain is improved. Mild nausea. Tolerated diet yesterday. Continue diet as tolerated. Continue analgesics. Anticipate discharge home in the next few days. Follow-up as outpatient to discuss whether follow-up CAT scan advised. Objective - Vital Signs Vital signs: Vital Signs Temp 97.8 F 11/02/24 08:41 Pulse 81 11/02/24 08:41 Resp 18 11/02/24 08:41 BP 142/96 11/02/24 08:41 Pulse Ox 100 11/02/24 08:41 FiO2 Intake & Output 11/01/24 11/02/24 11/02/24 18:59 06:59 18:59 Intake Total 1118 250 Balance 1118 250 Weight 90.6 kg 89.8 kg Intake: IV 10 Invasive Line 3 10 Intake, IV Titration 1000 Amount Lactated Ringers 1,000 ml 1000 @ 125 mls/hr IV .Q8H [facility] Rx#:[id number] Oral 118 240 Other: Voiding Method Toilet Toilet Toilet # Voids 2 - Labs CBC & Chem 7: 11/02/24 06:42 11/02/24 06:42 Labs: Abnormal Lab Results - Last 24 Hours (Table) 11/02/24 11/02/24 Range/Units 06:42 06:42 Hgb 17.6 H (11.4-16.0) gm/dL Hct 52.3 H (34.0-46.0) % MCV 108.5 H (80.0-100.0) fL MCH 36.6 H (25.0-35.0) pg Macrocytosis Marked A Chloride 96 L (98-107) mmol/L Carbon Dioxide 35 H (22-30) mmol/L Calcium 10.4 H (8.4-10.2) mg/dL AST 80 H (14-36) U/L ALT 76 H (4-34) U/L
--- NOTE | 2024-11-02 14:31 | P.PN ---
Subjective Interval History: This is a pleasant 29-year-old female who presented to the emergency department with severe abdominal pain and reports she feels her pancreatitis is acting up. Patient was recently hospitalized for pancreatitis and left AGAINST MEDICAL ADVICE reporting she had something to do for her children. Patient presented again this morning with increasing abdominal pain that is progressively getting worse and has not resolved since leaving the hospital the other day. Patient reports she did take 1 shot of alcohol at home yesterday but is not intoxicated and is not actively withdrawing. Patient reports mid epigastric upper abdominal pain with tenderness on palpation. Labs reviewed and white count is normal at 8.9, hemoglobin 13.7, platelets 212, sodium 141 with a potassium of 3.9, BUN is 8 and creatinine 0.56. Total bilirubin is 1.3, AST 100, ALT 54, amylase at 150 and lipase at 325 which are significantly improved from repeat a few days ago. Serum alcohol was less than 10. Chest x-ray done showing no acute cardiopulmo nary process. Patient was admitted under observation for acute pancreatitis and started on fluids as well as pain management. Patient started on clear liquids and will continue gentle IV hydration for now. Patient does not currently have a primary care provider and reports has a history of high blood pressure, thyroid, hidradenitis suppurativa with kidney stones, anxiety/depression, continued ongoing nicotine use, heavy daily alcohol use, and marijuana use. 10/27. Patient seen and examined. Patient had rapid response called this morning for low heart rate and elevated blood pressure. Patient was complaining of chest pain at the time. Stat blood work was collected. EKG done showed sin us bradycardia. Patient still having abdominal pain. No nausea or vomiting 10/28. Patient seen and examined. Bradycardia is improved. Abdominal pain is also improved. CT abdomen, pelvis done showed pancreatitis involving the pancreatic tail. 10/29--patient was seen and examined today. Continues complain of abdominal pain, requiring IV pain medication for pain control. Afebrile, heart rate 97, respiratory rate 16, blood pressure elevated likely component of pain. Continue Norvasc, added losartan for blood pressure control. Cardiology was following patient for bradycardia which has resolved now, echocardiogram is unremarkable. WBC 5.8, hemoglobin 15.0, MCV 108, platelet 242. BMP unremarkable, potassium 3.1. Lipase 112. 4/1patient was seen and examined today. Patient continues complain of abdominal pain, tolerating p.o. intake. Blood pressure still elevated, on amlodipine losartan and hydrochlorothiazide, will increase losartan dose to 100 mg daily. Will continue IV fluids. WBC 6.2, hemoglobin 17.8, platelet 293. CMP unremarkable except AST 84, ALT 74, relatively stable. 10/31--patient was seen and examined today. Continues complain of nausea and abdominal pain. Patient is afebrile, heart rate 77, respiratory rate 18, blood pressure improving 152/92, saturating 98% on room air. Platelet normal 7.3. Hemoglobin 18.2, platelet 307. BUN 5, creatinine 0.69. AST 100 ALT 88, slightly up from yesterday. Will continue IV fluids, monitor vitals and labs. 11/01--patient was seen and examined today. Continue complain of abdominal pain. No further episodes of nausea vomiting. 10/31 showed fairly severe acute pancreatitis remains present greatest distally, now nonenhancement of the pancreatic tail consistent with necrotizing pancreatitis. CRP unremarkable. Hemoglobin hematocrit stable slightly down today. BUN/creatinine unremarkable. AST ALT trending down. General surgery following. On low-fat diet. 11/02--- patient was seen and examined today. Continue complain of abdominal pain, gradually improving. Tolerating p.o. intake. Patient reported worsening pain overnight, now improving. General surgery following. Afebrile, heart rate 85, respiratory rate 18, blood pressure improving 125/78, saturating 99% on room air. WBC 6.4, hemoglobin 17.6, platelet 285. Sodium 139 potassium 4.4 chloride 96 CO2 35 BUN 8 creatinine 0.84 AST 80 ALT 76 lipase normal 70. Assessment and plan: Acute pancreatitis: Alcohol use disorder: Bradycardia Recent hospitalization for acute pancreatitis 2 days ago, left AMA due to family issues THC use Ongoing nicotine abuse Hypertension Thyroid disorder Depression/anxiety Morbid obesity with BMI 33.9 Cardiology consulted for bradycardia, echocardiogram done, unremarkable, avoid beta-blockers General Surgery consulted for acute pancreatitis CT abdomen pelvis showed pancreatitis involving the pancreatic tail Repeat CT abdomen pelvis 10/[address] abdomen pelvis showed fairly severe acute pancreatitis remains present greatest distally, now nonenhancement of the pancreatic tail consistent with necrotizing pancreatitis Continue IV fluids Pain control--requiring IV pain meds. Low-fat diet. Thiamine, folic acid, multivitamin. Monitor vitals and labs Norvasc, losartan, hydrochlorothiazide for blood pressure control. DVT prophylaxis: Subcutaneous heparin Monitor vital signs and labs Labs and medication were reviewed. Continue same treatment. Further recommendations as per clinical course of the patient PHYSICAL EXAMINATION: GENERAL: The patient is A&O x3, NAD HEENT: EOMI, Sclerae anicteric, Moist Mucous membranes Neck: Supple, Non tender, No JVD PULMONARY: Equal breath souds B/L, No wheezing, No crackles. CARDIOVASCULAR: S1, S2 present. No murmurs, rubs, or gallops. ABDOMEN: tender, nondistended, normoactive bowel sounds. No guarding or rebound tenderness. MUSCULOSKELETAL: No edema, No cyanosis. No clubbing. Normal ROM. Intact peripheral pulses. NEUROLOGICAL: CN 2-12 grossly intact. No FND Skin: No Rash REVIEW OF SYSTEMS: CONSTITUTIONAL: No fever or chills. CARDIOVASCULAR: No chest pain, palpitations or syncope. PULMONARY: No shortness of breath, no cough, sore throat. GASTROINTESTINAL: No nausea, vomiting, diarrhea. Complains of abdominal pain. : No Dysuria, urgency, frequency. Extremities: No edema. NEUROLOGICAL: No headaches, no weakness, or numbness Dictation was produced using [employer] dictation software. please excuse any grammatical, word or spelling errors. Objective - Vital Signs Vital signs: Vital Signs Temp 97.8 F 11/02/24 08:41 Pulse 85 11/02/24 14:00 Resp 18 11/02/24 14:00 BP 125/78 11/02/24 12:00 Pulse Ox 99 11/02/24 12:00 FiO2 Intake & Output 11/01/24 11/02/24 11/02/24 18:59 06:59 18:59 Intake Total 1118 860 Balance 1118 860 Weight 90.6 kg 89.8 kg Intake: IV 20 Invasive Line 3 20 Intake, IV Titration 1000 Amount Lactated Ringers 1,000 ml 1000 @ 125 mls/hr IV .Q8H [facility] Rx#:[id number] Oral 118 840 Other: Voiding Method Toilet Toilet Toilet # Voids 2 3 - Labs CBC & Chem 7: 11/02/24 06:42 11/02/24 06:42 Labs: Abnormal Lab Results - Last 24 Hours (Table) 04/04/25 04/04/25 Range/Units 06:42 06:42 Hgb 17.6 H (11.4-16.0) gm/dL Hct 52.3 H (34.0-46.0) % MCV 108.5 H (80.0-100.0) fL MCH 36.6 H (25.0-35.0) pg Macrocytosis Marked A Chloride 96 L (98-107) mmol/L Carbon Dioxide 35 H (22-30) mmol/L Calcium 10.4 H (8.4-10.2) mg/dL AST 80 H (14-36) U/L ALT 76 H (4-34) U/L
[2024-11-02] MEDS: HYDROmorphone 2 MG/ML 1 ML SYRINGE IVP PRN (20:21)
[2024-11-03 06:28] LABS: Basophils % (A) 1 %; Eosinophils # (A) 0.3 k/uL (0-0.7); Eosinophils % (A) 4 %; HCT 51.3 % (34.0-46.0); HGB 17.4 gm/dL (11.4-16.0); Lymphocytes % (A) 24 %; MCH 36.8 pg (25.0-35.0); MCV 108.1 fL (80.0-100.0); Macrocytosis Moderate; Mean Platelet Volume 8.1; Monocytes # (A) 0.5 k/uL (0-1.0); Monocytes % (A) 6 %; Neutrophils # (A) 5.4 k/uL (1.3-7.7); Neutrophils % (A) 65 %; Platelet Count 250 k/uL (150-450); RBC 4.74 m/uL (3.80-5.40); WBC 8.3 k/uL (3.8-10.6)
[2024-11-03 06:44] LABS: ALT 71 U/L (4-34); AST 63 U/L (14-36); African American GFR (CKD) >90 (>60 ml/min/1.73 sqM); Albumin 4.7 g/dL (3.5-5.0); Alkaline Phosphatase 78 U/L (38-126); Anion Gap 11 mmol/L; Blood Urea Nitrogen 8 mg/dL (7-17); Calcium 10.5 mg/dL (8.4-10.2); Carbon Dioxide 32 mmol/L (22-30); Chloride 96 mmol/L (98-107); Glucose 88 mg/dL (74-99); Non-African American GFR(CKD) 88 (>60 ml/min/1.73 sqM); Potassium 4.5 mmol/L (3.5-5.1); Sodium 139 mmol/L (137-145); Total Bilirubin 1.3 mg/dL (0.2-1.3); Total Protein 8.2 g/dL (6.3-8.2)
[2024-11-03 08:46] VITALS: BP 142/104; PULSE 103; RESP 22; TEMP 98.1
[2024-11-03] MEDS ORDERED: HYDROcodone/APAP 5-325MG 1 EACH TAB PO PRN (10:54)
[2024-11-03] MEDS ORDERED: HYDROmorphone 2 MG/ML 1 ML SYRINGE IVP PRN (10:54)
--- NOTE | 2024-11-03 13:18 | P.PN ---
Subjective Progress Note Date: 11/03/24 Principal diagnosis: Pancreatitis Patient states she has increased pain today. On exam vital signs appear stable. Abdomen soft. Alcoholic pancreatitis. Patient continue receive supportive care. Objective - Vital Signs Vital signs: Vital Signs Temp 98.1 F 11/03/24 08:46 Pulse 103 H 11/03/24 08:46 Resp 22 11/03/24 08:46 BP 142/104 11/03/24 08:46 Pulse Ox 100 11/03/24 08:46 FiO2 Intake & Output 11/02/24 11/03/24 11/03/24 18:59 06:59 18:59 Intake Total 1100 10 120 Output Total 0 Balance 1100 10 120 Weight 89.6 kg Intake: IV 20 10 Invasive Line 3 20 10 Oral 1080 120 Output: Gastric Drainage 0 Urine 0 Stool 0 Urine/Stool Mix 0 Emesis 0 Oral Regurgitation 0 Other 0 Other: Voiding Method Toilet Toilet Toilet # Voids 3 1 0 # Bowel Movements 0 - Labs CBC & Chem 7: 11/03/24 05:53 11/03/24 05:53 Labs: Abnormal Lab Results - Last 24 Hours (Table) 11/03/24 11/03/24 Range/Units 05:53 05:53 Hgb 17.4 H (11.4-16.0) gm/dL Hct 51.3 H (34.0-46.0) % MCV 108.1 H (80.0-100.0) fL MCH 36.8 H (25.0-35.0) pg Chloride 96 L (98-107) mmol/L Carbon Dioxide 32 H (22-30) mmol/L Calcium 10.5 H (8.4-10.2) mg/dL AST 63 H (14-36) U/L ALT 71 H (4-34) U/L
--- NOTE | 2024-11-03 13:44 | P.DS ---
Providers Date of admission: 10/26/24 07:55 Expected date of discharge: 11/03/24 Attending physician: Marcelle Lehman MD Consults: 10/27/24 11:09 Consult Physician Routine Consulting Provider: Fabio Agrawal Consult Reason/Comments: Abdominal pain Do you want consulting provider notified?: Yes Primary care physician: Stated None Hospital Course: Discharge diagnoses; Acute pancreatitis: Alcohol use disorder: Bradycardia Recent hospitalization for acute pancreatitis 2 days ago, left AMA due to family issues THC use Ongoing nicotine abuse Hypertension Thyroid disorder Depression/anxiety Morbid obesity with BMI 33.9 Hospital course; This is a pleasant 29-year-old female who presented to the emergency department with severe abdominal pain and reports she feels her pancreatitis is acting up. Patient was recently hospitalized for pancreatitis and left AGAINST MEDICAL ADVICE reporting she had something to do for her children. Patient presented ag ain this morning with increasing abdominal pain that is progressively getting worse and has not resolved since leaving the hospital the other day. Patient reports she did take 1 shot of alcohol at home yesterday but is not intoxicated and is not actively withdrawing. Patient reports mid epigastric upper abdominal pain with tenderness on palpation. Labs reviewed and white count is normal at 8.9, hemoglobin 13.7, platelets 212, sodium 141 with a potassium of 3.9, BUN is 8 and creatinine 0.56. Total bilirubin is 1.3, AST 100, ALT 54, amylase at 150 and lipase at 325 which are significantly improved from repeat a few days ago. Serum alcohol was less than 10. Chest x-ray done showing no acute cardiopulmonary process. Patient was admitted under observation for acute pancreatitis and started on fluids as well as pain management. Patient started on clear liquids and will continue gentle IV hydration for now. Patient does not currently have a primary care provider and reports has a history of high blood pressure, thyroid, hidradenitis suppurativa with kidney stones, anxiety/depression, continued ongoing nicotine use, heavy daily alcohol use, and marijuana use. 10/27. Patient seen and examined. Patient had rapid response called this morning for low heart rate and elevated blood pressure. Patient was complaining of chest pain at the time. Stat blood work was collected. EKG done showed sinus bradycardia. Patient still having abdominal pain. No nausea or vomiting 10/28. Patient seen and examined. Bradycardia is improved. Abdominal pain is also improved. CT abdomen, pelvis done showed pancreatitis involving the pancreatic tail. 10/29--patient was seen and examined today. Continues complain of abdominal pain, requiring IV pain medication for pain control. Afebrile, heart rate 97, respiratory rate 16, blood pressure elevated likely component of pain. Continue Norvasc, added losartan for blood pressure control. Cardiology was following patient for bradycardia which has resolved now, echocardiogram is unremarkable. WBC 5.8, hemoglobin 15.0, MCV 108, platelet 242. BMP unremarkable, potassium 3.1. Lipase 112. 4/1patient was seen and examined today. Patient continues complain of abdominal pain, tolerating p.o. intake. Blood pressure still elevated, on amlodipine losartan and hydrochlorothiazide, will increase losartan dose to 100 mg daily. Will continue IV fluids. WBC 6.2, hemoglobin 17.8, platelet 293. CMP unremarkable except AST 84, ALT 74, relatively stable. 10/31--patient was seen and examined today. Continues complain of nausea and abd ominal pain. Patient is afebrile, heart rate 77, respiratory rate 18, blood pressure improving 152/92, saturating 98% on room air. Platelet normal 7.3. Hemoglobin 18.2, platelet 307. BUN 5, creatinine 0.69. AST 100 ALT 88, slightly up from yesterday. Will continue IV fluids, monitor vitals and labs. 11/01--patient was seen and examined today. Continue complain of abdominal pain. No further episodes of nausea vomiting. 10/31 showed fairly severe acute pancreatitis remains present greatest distally, now nonenhancement of the pancreatic tail consistent with necrotizing pancreatitis. CRP unremarkable. Hemoglobin hematocrit stable slightly down today. BUN/creatinine unremarkable. AST ALT trending down. General surgery following. On low-fat diet. 11/02--- patient was seen and examined today. Continue complain of abdominal pain, gradually improving. Tolerating p.o. intake. Patient reported worsening pain overnight, now improving. General surgery following. Afebrile, heart rate 85, respiratory rate 18, blood pressure improving 125/78, saturating 99% on room air. WBC 6.4, hemoglobin 17.6, platelet 285. Sodium 139 potassium 4.4 chloride 96 CO2 35 BUN 8 creatinine 0.84 AST 80 ALT 76 lipase normal 70. 4/5. Patient seen examined. Pain has improved. Tolerating regular diet. Being discharged to follow-up outpatient with PCP, surgery and cardiology PHYSICAL EXAMINATION: GENERAL: The patient is alert and oriented x3, not in any acute distress. Well developed, well nourished. HEENT: Pupils are round and equally reacting to light. EOMI. No scleral icterus. No conjunctival pallor. Normocephalic, atraumatic. No pharyngeal erythema. No thyromegaly. CARDIOVASCULAR: S1 and S2 present. No murmurs, rubs, or gallops. PULMONARY: Chest is clear to auscultation, no wheezing or crackles. ABDOMEN: Soft, nontender, nondistended, normoactive bowel sounds. No palpable organomegaly. MUSCULOSKELETAL: No joint swelling or deformity. EXTREMITIES: No cyanosis, clubbing, or pedal edema. NEUROLOGICAL: Gross neurological examination did not reveal any focal deficits. SKIN: No rashes. Dictation was produced using [employer] dictation software. please excuse any grammatical, word or spelling errors. Plan - Discharge Summary New Discharge Prescriptions: New Losartan [Cozaar] 100 mg PO DAILY 30 Days #30 tab hydroCHLOROthiazide [Hydrodiuril] 25 mg PO DAILY 30 Days #30 tab HYDROcodone/APAP 5-325MG [[place] 5-325] 1 each PO Q4HR PRN 3 Days #9 tab PRN Reason: Moderate Pain (Scale 4 To 6) amLODIPine [Norvasc] 10 mg PO DAILY 30 Days #30 tab Continue Pantoprazole Sodium [Protonix] 40 mg PO DAILY PRN PRN Reason: Gi Upset Discontinued Sulfamethox-Tmp 800-160Mg [Bactrim DS 800-160 mg] 1 tab PO Q12HR 10 Days #20 tab cloNIDine HCL [Catapres] 0.1 mg PO DAILY Discharge Medication List Pantoprazole Sodium [Protonix] 40 mg PO DAILY PRN 10/21/24 [History] HYDROcodone/APAP 5-325MG [[place] 5-325] 1 each PO Q4HR PRN 3 Days #9 tab 11/03/24 [Rx] Losartan [Cozaar] 100 mg PO DAILY 30 Days #30 tab 11/03/24 [Rx] amLODIPine [Norvasc] 10 mg PO DAILY 30 Days #30 tab 11/03/24 [Rx] hydroCHLOROthiazide [Hydrodiuril] 25 mg PO DAILY 30 Days #30 tab 11/03/24 [Rx] Follow up Appointment(s)/Referral(s): Fabio Agrawal MD [Medical Doctor] - 2 Weeks Yossi Mckeon MD [STAFF PHYSICIAN] - 1 Week None,Stated [Primary Care Provider] - 1-2 days Discharge/Stand Alone Forms: AA [facility], Outpatient Counseling, In Substance Abuse Facilities Discharge Disposition: HOME SELF-CARE
== END 2024-11-03 14:30 | disposition home or self-care (01) | DRG 282 ==
LOC: EC 02:35 → 6NMEDSUR 07:54 → OBSVTOIN 07:55 → 5NMEDONC 14:23 → 2SICU 10-27 09:54 → 3SCARD 10-29 11:11
PROVIDERS: ADMIT Internal Medicine; ATTEND Internal Medicine
DX: K85.21 Alcohol induced acute pancreatitis with uninfected necrosis (principal); I11.9 Hypertensive heart disease without heart failure; F41.9 Anxiety disorder, unspecified; F32.A Depression, unspecified; E03.9 Hypothyroidism, unspecified; E66.01 Morbid (severe) obesity due to excess calories; E87.6 Hypokalemia; F17.210 Nicotine dependence, cigarettes, uncomplicated; R00.1 Bradycardia, unspecified; F10.10 Alcohol abuse, uncomplicated; Z71.41 Alcohol abuse counseling and surveillance of alcoholic; Z68.33 Body mass index [BMI] 33.0-33.9, adult; Z79.899 Other long term (current) drug therapy; Z87.442 Personal history of urinary calculi; Z86.14 Personal history of Methicillin resistant Staphylococcus aureus infection; Z28.310 Unvaccinated for COVID-19; Z28.21 Immunization not carried out because of patient refusal
CPT/HCPCS: 36415; 71045; 74177; 80048; 80053; 80306; 80320; 82150; 82607; 82747; 83605; 83690; 83735; 84484; 85025; 86140; 93005; 93306; 96361; 96374; 96375; 96376; 99285

== ENCOUNTER 2024-11-06 18:59 | Observation (INO) | payer OTHER ==
--- NOTE | 2024-11-06 19:40 | ED ---
Abdominal Pain HPI - General Chief Complaint: Abdominal Pain Stated Complaint: ABD Pain Time Seen by Provider: 11/06/24 19:08 Source: patient, RN notes reviewed Mode of arrival: ambulatory Limitations: no limitations - History of Present Illness Initial Comments: 29-year-old female presents emergency department complaint abdominal pain, nausea vomiting. Patient states she was recently hospitalized for acute pancreatitis. Patient states that she started increasing pain similar to her pain that she was hospitalized for. Patient states that she did not drink after she was discharged in the hospital she does admit that she prior heavy alcohol drinker. Patient denies any dysuria hematuria no change in bowel habits no chest pain no shortness of breath. - Related Data Home Medications Medication Instructions Recorded Confirmed Pantoprazole Sodium [Protonix] 40 mg PO DAILY PRN 10/21/24 10/26/24 Previous Rx's Medication Instructions Recorded HYDROcodone/APAP 5-325MG [[place] 1 each PO Q4HR PRN 3 Days #9 tab 11/03/24 5-325] Losartan [Cozaar] 100 mg PO DAILY 30 Days #30 tab 11/03/24 amLODIPine [Norvasc] 10 mg PO DAILY 30 Days #30 tab 11/03/24 hydroCHLOROthiazide [Hydrodiuril] 25 mg PO DAILY 30 Days #30 tab 11/03/24 Allergies Allergy/AdvReac Type Severity Reaction Status Date / Time No Known Allergies Allergy Verified 10/26/24 09:26 Review of Systems ROS Statement: Those systems with pertinent positive or pertinent negative responses have been documented in the HPI. ROS Other: All systems not noted in ROS Statement are negative. Past Medical History Past Medical History: Hypertension, Thyroid Disorder Additional Past Medical History / Comment(s): Hydradenitis suppertiva; Kidney stones, PANCREATITIS History of Any Multi-Drug Resistant Organisms: MRSA Date of last positivie culture/infection: 10/09/24 MDRO Source:: buttock Past Surgical History: No Surgical Hx Reported Additional Past Surgical History / Comment(s): cyst removed from buttocks two years ago, cystoscopy with right ureteroscopy and holmium laser lithotripsy on 09/19/2020 Past Anesthesia/Blood Transfusion Reactions: No Reported Reaction Past Psychological History: No Psychological Hx Reported Smoking Status: Current every day smoker, Heavy tobacco smoker Past Alcohol Use History: Heavy Past Drug Use History: Marijuana - Past Family History Mother Family Medical History: No Reported History General Exam Limitations: no limitations General appearance: alert, in no apparent distress Head exam: Present: atraumatic, normocephalic, normal inspection Eye exam: Present: normal appearance, PERRL, EOMI. Absent: scleral icterus, conjunctival injection, periorbital swelling Neck exam: Present: normal inspection. Absent: tenderness, meningismus, lymphadenopathy Respiratory exam: Present: normal lung sounds bilaterally. Absent: respiratory distress, wheezes, rales, rhonchi, stridor Cardiovascular Exam: Present: regular rate, normal rhythm, normal heart sounds. Absent: systolic murmur, diastolic murmur, rubs, gallop, clicks GI/Abdominal exam: Present: soft, tenderness, normal bowel sounds. Absent: distended, guarding, rebound, rigid Back exam: Absent: CVA tenderness (R), CVA tenderness (L) Neurological exam: Present: alert Course Vital Signs 11/06/24 11/06/24 19:01 21:25 Temperature 98.7 F Pulse Rate 93 82 Respiratory 18 20 Rate Blood Pressure 142/106 132/83 O2 Sat by Pulse 99 99 Oximetry Medical Decision Making - Medical Decision Making Was pt. sent in by a medical professional or institution (, PA, [facility] [employer], urgent care, hospital, or [place] health care facility...) When possible be specific @ -No Did you speak to anyone other than the patient for history (EMS, parent, family, police, friend...)? What history was obtained from this source @ -No Did you review nursing and triage notes (agree or disagree)? Why? @ -I reviewed and agree with nursing and triage notes Were old charts reviewed (outside hosp., previous admission, EMS record, old EKG, old radiological studies, urgent care reports/EKG's, [place] health care facility records)? Report findings @ -Reviewed recent inpatient records along with 3 CT showing severe pancreatitis Differential Diagnosis (chest pain, altered mental status, abdominal pain women, abdominal pain men, vaginal bleeding, weakness, fever, dyspnea, syncope, headache, dizziness, GI bleed, back pain, seizure, CVA, palpatations, mental health, musculoskeletal)? @ -Differential Abdominal Pain Men: Appendicitis, cholecystitis, diverticulosis, ischemic bowel, pancreatitis, hepatitis, UTI, gastroenteritis, AAA, incarcerated hernia, bowel obstruction, constipation, inflammatory bowel, hepatitis, peptic ulcer disease, splenic infarction, perforated viscus, testicular torsion, this is not meant to be an all-inclusive list EKG interpreted by me (3pts min.). @ -As above X-rays interpreted by me (1pt min.). @ -None done CT interpreted by me (1pt min.). @ -None done U/S interpreted by me (1pt. min.). @ -None done What testing was considered but not performed or refused? (CT, X-rays, U/S, labs)? Why? @ -Consider CT though patient's had multiple recent CTs. What meds were considered but not given or refused? Why? @ -None Did you discuss the management of the patient with other professionals (pro fessionals i.e. , PA, [facility] [employer], lab, RT, psych nurse, high school social studies tutor, web page designer, teacher, service officer, caser in)? Give summary @ -EMH for admission Was smoking cessation discussed for >3mins.? @ -No Was critical care preformed (if so, how long)? @ -No Were there social determinants of health that impacted care today? How? (Homelessness, low income, unemployed, alcoholism, drug addiction, transport ation, low edu. Level, literacy, decrease access to med. care, [facility], rehab)? @ -No Was there de-escalation of care discussed even if they declined (Discuss DNR or withdrawal of care, Hospice)? DNR status @ -No What co-morbidities impacted this encounter? (DM, HTN, Smoking, COPD, CAD, Cancer, CVA, ARF, Chemo, Hep., AIDS, mental health diagnosis, sleep apnea, morbid obesity)? @ -Alcohol abuse, pancreatitis Was patient admitted / discharged? Hospital course, mention meds given and route, prescriptions, significant lab abnormalities, going to OR and other pertinent info. @ -Admitted patient presented for abdominal pain. Patient symptoms are consistent with prior pancreatitis lipase is normal at this time though patient has chronic pancreatitis. In severe pain patient will be admitted for GI evaluation. Undiagnosed new problem with uncertain prognosis? @ -No Drug Therapy requiring intensive monitoring for toxicity (Heparin, Nitro, Insulin, Cardizem)? @ -No Were any procedures done? @ -No Diagnosis/symptom? @ -[Abdominal pain, intractable, pancreatitis Acute, or Chronic, or Acute on Chronic? @ -Acute Uncomplicated (without systemic symptoms) or Complicated (systemic symptoms)? @ -Complicated Side effects of treatment? @ -No Exacerbation, Progression, or Severe Exacerbation? @ -No Poses a threat to life or bodily function? How? (Chest pain, [place], ME, pneumonia, PE, COPD, DKA, ARF, appy, cholecystitis, CVA, Diverticulitis, Homicidal, Suicidal, threat to staff... and all critical care pts) @ -No - Lab Data Result diagrams: 11/06/24 19:33 11/06/24 19:33 Lab Results 11/06/24 11/06/24 11/06/24 Range/Units 19:33 19:33 19:33 WBC 13.08 H (4.50-10.00) 10*3/uL RBC 4.79 (4.10-5.20) 10*6/uL Hgb 18.0 H (12.0-15.0) g/dL Hct 49.3 H (37.2-46.3) % MCV 102.9 H (80.0-97.0) fL MCH 37.6 H (27.0-32.0) pg MCHC 36.5 (32.0-37.0) g/dL Plt Count 338 (140-440) 10*3/uL MPV 10.6 (9.5-12.2) fL Immature Gran % (Auto) 0.4 % Neutrophils % 76.5 % Lymphocytes % 13.8 % Monocytes % 5.4 % Eosinophils % 3.3 % Basophils % 0.6 % Immature Gran # 0.05 H (0.00-0.04) 10*3/uL Neutrophils # 10.01 H (1.80-7.70) 10*3/uL Lymphocytes # 1.80 (0.90-5.00) 10*3/uL Monocytes # 0.71 (0.20-1.00) 10*3/uL Eosinophils # 0.43 H (0.04-0.35) 10*3/uL Basophils # 0.08 (0.00-0.10) 10*3/uL Sodium 139 (137-145) mmol/L Potassium 4.2 (3.5-5.1) mmol/L Chloride 100 (98-107) mmol/L Carbon Dioxide 27 (22-30) mmol/L Anion Gap 12 mmol/L BUN 13 (7-17) mg/dL Creatinine 0.69 (0.52-1.04) mg/dL Est GFR (CKD-EPI)AfAm >90 (>60 ml/min/1.73 sqM) Est GFR (CKD-EPI)NonAf >90 (>60 ml/min/1.73 sqM) Glucose 108 H (74-99) mg/dL Plasma Lactic Acid Kartik 1.3 (0.7-2.0) mmol/L Calcium 10.7 H (8.4-10.2) mg/dL Total Bilirubin 0.9 (0.2-1.3) mg/dL AST 42 H (14-36) U/L ALT 43 H (4-34) U/L Alkaline Phosphatase 78 (38-126) U/L Total Protein 9.1 H (6.3-8.2) g/dL Albumin 5.2 H (3.5-5.0) g/dL Lipase 51 (23-300) U/L Urine Color Urine Appearance (Clear) Urine pH (5.0-8.0) Ur Specific [place] (1.001-1.035) Urine Protein (Negative) Urine Glucose (UA) (Negative) Urine Ketones (Negative) Urine Blood (Negative) Urine Nitrite (Negative) Urine Bilirubin (Negative) Urine Urobilinogen (<2.0) mg/dL Ur Leukocyte Esterase (Negative) Urine RBC (0-5) /hpf Urine WBC (0-5) /hpf Ur Squamous Epith Cells (0-4) /hpf Urine Bacteria (None) /hpf Urine Mucus (None) /hpf Urine HCG, Qual (Not Detectd) Serum Alcohol <10 mg/dL 11/06/24 11/06/24 Range/Units 20:36 20:36 WBC (4.50-10.00) 10*3/uL RBC (4.10-5.20) 10*6/uL Hgb (12.0-15.0) g/dL Hct (37.2-46.3) % MCV (80.0-97.0) fL MCH (27.0-32.0) pg MCHC (32.0-37.0) g/dL Plt Count (140-440) 10*3/uL MPV (9.5-12.2) fL Immature Gran % (Auto) % Neutrophils % % Lymphocytes % % Monocytes % % Eosinophils % % Basophils % % Immature Gran # (0.00-0.04) 10*3/uL Neutrophils # (1.80-7.70) 10*3/uL Lymphocytes # (0.90-5.00) 10*3/uL Monocytes # (0.20-1.00) 10*3/uL Eosinophils # (0.04-0.35) 10*3/uL Basophils # (0.00-0.10) 10*3/uL Sodium (137-145) mmol/L Potassium (3.5-5.1) mmol/L Chloride (98-107) mmol/L Carbon Dioxide (22-30) mmol/L Anion Gap mmol/L BUN (7-17) mg/dL Creatinine (0.52-1.04) mg/dL Est GFR (CKD-EPI)AfAm (>60 ml/min/1.73 sqM) Est GFR (CKD-EPI)NonAf (>60 ml/min/1.73 sqM) Glucose (74-99) mg/dL Plasma Lactic Acid Kartik (0.7-2.0) mmol/L Calcium (8.4-10.2) mg/dL Total Bilirubin (0.2-1.3) mg/dL AST (14-36) U/L ALT (4-34) U/L Alkaline Phosphatase (38-126) U/L Total Protein (6.3-8.2) g/dL Albumin (3.5-5.0) g/dL Lipase (23-300) U/L Urine Color Yellow Urine Appearance Cloudy H (Clear) Urine pH 6.0 (5.0-8.0) Ur Specific [place] 1.030 (1.001-1.035) Urine Protein 1+ H (Negative) Urine Glucose (UA) Negative (Negative) Urine Ketones Negative (Negative) Urine Blood Negative (Negative) Urine Nitrite Negative (Negative) Urine Bilirubin Negative (Negative) Urine Urobilinogen 3.0 (<2.0) mg/dL Ur Leukocyte Esterase Small H (Negative) Urine RBC <1 (0-5) /hpf Urine WBC 5 (0-5) /hpf Ur Squamous Epith Cells 23 H (0-4) /hpf Urine Bacteria Rare H (None) /hpf Urine Mucus Moderate H (None) /hpf Urine HCG, Qual Not Detected (Not Detectd) Serum Alcohol mg/dL Disposition Clinical Impression: Pancreatitis, Abdominal pain Disposition: ADMITTED IP TO THIS HOSP Condition: Poor Referrals: Tiara Pollock MD [Primary Care Provider] - 1-2 days Time of Disposition: 22:08
[2024-11-06] MEDS: SODIUM CHLORIDE 0.9% 1,000 ML IV SCH ×2 (19:41→22:31)
[2024-11-06] MEDS: ONDANSETRON 4 MG/2 ML VIAL IVP STA (19:42)
[2024-11-06] MEDS: HYDROmorphone 1 MG/ML 1 ML SYRINGE IVP STA ×2 (19:42→21:05)
[2024-11-06] MEDS: KETOROLAC 15 MG/ML 1 ML VIAL IVP STA ×2 (19:42→21:04)
[2024-11-06 19:44] LABS: Basophils # (A) 0.08 10*3/uL (0.00-0.10); Basophils % (A) 0.6 %; Eosinophils # (A) 0.43 10*3/uL (0.04-0.35); Eosinophils % (A) 3.3 %; HCT 49.3 % (37.2-46.3); Lymphocytes % (A) 13.8 %; MCH 37.6 pg (27.0-32.0); MCHC 36.5 g/dL (32.0-37.0); MCV 102.9 fL (80.0-97.0); Mean Platelet Volume 10.6 fL (9.5-12.2); Monocytes # (A) 0.71 10*3/uL (0.20-1.00); Monocytes % (A) 5.4 %; Neutrophils # (A) 10.01 10*3/uL (1.80-7.70); Neutrophils % (A) 76.5 %; Platelet Count 338 10*3/uL (140-440); RBC 4.79 10*6/uL (4.10-5.20); RDW 13.2 % (11.5-14.5); WBC 13.08 10*3/uL (4.50-10.00)
[2024-11-06 19:55] LABS: ALT 43 U/L (4-34); AST 42 U/L (14-36); African American GFR (CKD) >90 (>60 ml/min/1.73 sqM); Albumin 5.2 g/dL (3.5-5.0); Alcohol <10 mg/dL; Alkaline Phosphatase 78 U/L (38-126); Anion Gap 12 mmol/L; Blood Urea Nitrogen 13 mg/dL (7-17); Calcium 10.7 mg/dL (8.4-10.2); Carbon Dioxide 27 mmol/L (22-30); Chloride 100 mmol/L (98-107); Glucose 108 mg/dL (74-99); Lipase 51 U/L (23-300); Non-African American GFR(CKD) >90 (>60 ml/min/1.73 sqM); Potassium 4.2 mmol/L (3.5-5.1); Sodium 139 mmol/L (137-145); Total Bilirubin 0.9 mg/dL (0.2-1.3); Total Protein 9.1 g/dL (6.3-8.2)
[2024-11-06 20:50] LABS: Appearance,Urine Cloudy (Clear); Bacteria,Urine Rare /hpf; Bilirubin,Urine Negative (Negative); Blood,Urine Negative (Negative); Color,Urine Yellow; Glucose,Urine (UA) Negative (Negative); Ketones,Urine Negative (Negative); Leukocyte Esterase,Urine Small (Negative); Mucus,Urine Moderate /hpf; Nitrite,Urine Negative (Negative); Protein,Urine 1+ (Negative); RBC,Urine <1 /hpf (0-5); Squamous Epithelial Cell,Urine 23 /hpf (0-4); WBC,Urine 5 /hpf (0-5)
[2024-11-06] MEDS ORDERED: HYDROmorphone 1 MG/ML 1 ML SYRINGE IVP PRN (22:08)
[2024-11-06] MEDS ORDERED: NALOXONE 0.4 MG/ML 1 ML VIAL IV PRN (22:08)
[2024-11-07] MEDS: HYDROmorphone 2 MG/ML 1 ML SYRINGE IVP PRN (00:12)
[2024-11-07] MEDS ORDERED: LORazepam 1 MG TAB PO PRN (01:14)
[2024-11-07] MEDS: PROCHLORPERAZINE INJ 10 MG/2 ML VIAL IVP PRN (01:28)
[2024-11-07] MEDS: ONDANSETRON 4 MG/2 ML VIAL IVP PRN (06:33)
[2024-11-07] MEDS: PANTOPRAZOLE 40 MG/10 ML VIAL IV SCH ×2 (08:45→19:59)
[2024-11-07] MEDS: KETOROLAC 15 MG/ML 1 ML VIAL IVP PRN (08:53)
[2024-11-07 09:34] LABS: Basophils # (A) 0.04 10*3/uL (0.00-0.10); Basophils % (A) 0.5 %; Eosinophils # (A) 0.39 10*3/uL (0.04-0.35); HCT 40.2 % (37.2-46.3); Lymphocytes # (A) 1.58 10*3/uL (0.90-5.00); Lymphocytes % (A) 20.4 %; MCHC 36.1 g/dL (32.0-37.0); MCV 105.2 fL (80.0-97.0); Monocytes # (A) 0.64 10*3/uL (0.20-1.00); Monocytes % (A) 8.3 %; Neutrophils # (A) 5.06 10*3/uL (1.80-7.70); Neutrophils % (A) 65.5 %; Platelet Count 245 10*3/uL (140-440); RBC 3.82 10*6/uL (4.10-5.20); RDW 13.2 % (11.5-14.5); WBC 7.73 10*3/uL (4.50-10.00)
[2024-11-07 10:01] LABS: ALT 34 U/L (4-34); AST 38 U/L (14-36); African American GFR (CKD) >90 (>60 ml/min/1.73 sqM); Albumin 3.8 g/dL (3.5-5.0); Albumin/Globulin Ratio 1.3; Alkaline Phosphatase 61 U/L (38-126); Anion Gap 6 mmol/L; Blood Urea Nitrogen 10 mg/dL (7-17); Calcium 9.6 mg/dL (8.4-10.2); Carbon Dioxide 25 mmol/L (22-30); Chloride 107 mmol/L (98-107); Globulin 2.9 g/dL; Glucose 87 mg/dL (74-99); Lipase 36 U/L (23-300); Non-African American GFR(CKD) >90 (>60 ml/min/1.73 sqM); Potassium 4.1 mmol/L (3.5-5.1); Sodium 138 mmol/L (137-145); Total Bilirubin 1.1 mg/dL (0.2-1.3); Total Protein 6.7 g/dL (6.3-8.2)
--- NOTE | 2024-11-07 12:04 | P.CONS ---
History of Present Illness - Reason for Consult Consult date: 11/07/24 Pancreatitis Requesting physician: Amos Robin - Chief Complaint Abdominal pain - History of Present Illness This a pleasant 29-year-old female who presented to the emergency department with ongoing abdominal pain. Patient was recently admitted and discharged from 10/28/2024 to 11/03/2024 for necrotizing pancreatitis. She states that she felt a little better on discharge but never had pain go away completely. She states she continues to have pain at home associated with some nausea and vomiting and returned back for further treatment. She has a history of alcohol induced pancreatitis first episode being in June 2024. She has had several episodes following and has had multiple emergency room visits since that time he and several admissions. During her last admission she had a CT of the abdomen pelvis on 10/31/2024 which reported findings consistent with fairly severe acute pancreatitis remain present greatest distally. There is now 9 enhancement of th e pancreatic tail consistent with necrotizing pancreatitis. No imaging completed on this admission. Patient states she is having nausea but no vomiting at this time diffuse pain but mostly in the epigastric and left upper quadrant. She states she has not had any alcohol since 's Day. States that prior to that she had been a heavy drinker about a half a pint to a pint daily for 1 to 2 years. Patient had mild leukocytosis on admitting labs with a WBC of 13.0. Patient states she has been afebrile. Today's labs leukocytosis improved. WBC 7.7 hemoglobin 14.5 platelet count 245,000 sodium 138 potassium 4.1 BUN 10 creatinine 0.6 total bilirubin 1.1 AST 38 ALT 34 alkaline phosphatase 61 lipase 36 Review of Systems REVIEW OF SYSTEMS: CARDIOPULMONARY: No chest pain or shortness of breath. Gastrointestinal: Abdominal pain greatest in epigastric left upper quadrant. Nausea and vomiting. No hematemesis, coffee-ground emesis. No rectal bleeding, or melena. GENITOURINARY: No dysuria or hematuria. MUSCULOSKELETAL: Reports normal range of motion. SKIN: No rashes. No jaundice. ENDOCRINE: No chills, fevers. No excessive weight gain or loss. No polydipsia or polyuria. PSYCHIATRIC: Unremarkable. NEUROLOGY: No change in mental status. Denies dizziness, headache. ENT: Vision unremarkable. CONSTITUTIONAL: No recent weight loss. No fever, chills, night sweats. Past Medical History Past Medical History: Hypertension, Thyroid Disorder Additional Past Medical History / Comment(s): Hydradenitis suppertiva; Kidney stones, PANCREATITIS History of Any Multi-Drug Resistant Organisms: MRSA Year Discovered:: 10/09/24 MDRO Source:: buttock Past Surgical History: No Surgical Hx Reported Additional Past Surgical History / Comment(s): cyst removed from buttocks two years ago, cystoscopy with right ureteroscopy and holmium laser lithotripsy on 09/19/2020 Past Anesthesia/Blood Transfusion Reactions: No Reported Reaction Past Psychological History: No Psychological Hx Reported Smoking Status: Current every day smoker Past Alcohol Use History: Heavy Additional Past Alcohol Use History / Comment(s): Patient reports she has not drank alcohol since 10-15-24. Past Drug Use History: Marijuana - Past Family History Mother Family Medical History: No Reported History Medications and Allergies Home Medications Medication Instructions Recorded Confirmed Type Losartan [Cozaar] 100 mg PO DAILY 30 Days #30 tab 11/03/24 11/07/24 Rx amLODIPine [Norvasc] 10 mg PO DAILY 30 Days #30 tab 11/03/24 11/07/24 Rx hydroCHLOROthiazide [Hydrodiuril] 25 mg PO DAILY 30 Days #30 tab 11/03/24 11/07/24 Rx Allergies Allergy/AdvReac Type Severity Reaction Status Date / Time No Known Allergies Allergy Verified 11/07/24 09:56 Physical Exam Vitals: Vital Signs Temp Pulse Pulse Resp BP BP BP 11/07/24 07:05 97.8 F 71 16 132/85 11/07/24 06:26 126/83 11/07/24 02:00 97.4 F L 80 17 107/64 11/06/24 22:32 82 19 138/89 11/06/24 21:25 82 20 132/83 11/06/24 19:01 98.7 F 93 18 142/106 Pulse Ox 11/07/24 07:05 100 11/07/24 06:26 11/07/24 02:00 98 11/06/24 22:32 100 11/06/24 21:25 99 11/06/24 19:01 99 Intake and Output 11/06/24 11/07/24 11/07/24 22:59 06:59 14:59 Other: Voiding Method Toilet # Voids 1 Weight 90.718 kg 90.718 kg General appearance: The patient is alert, oriented, appears in no acute distress. Appears in pain but not acutely ill. HET: Head is normocephalic and atraumatic. Conjunctiva pink. Sclera anicteric. Neck: Supple without lymphadenopathy. Trachea midline. Heart: Regular. Lungs: Equal expansion, normal respiratory effort. Abdomen: Soft, diffuse tenderness, nondistended. Skin: No rashes. No jaundice. Extremities: Normal skin color and turgor. No pedal edema. Neurological: No focal deficits. Alert and oriented x3. Results CBC & Chem 7: 11/07/24 09:02 11/07/24 09:02 Labs: Abnormal Lab Results - Last 24 Hours (Table) 11/06/24 11/06/24 11/06/24 Range/Units 19:33 19:33 20:36 WBC 13.08 H (4.50-10.00) 10*3/uL Hgb 18.0 H (12.0-15.0) g/dL Hct 49.3 H (37.2-46.3) % MCV 102.9 H (80.0-97.0) fL MCH 37.6 H (27.0-32.0) pg Immature Gran # 0.05 H (0.00-0.04) 10*3/uL Neutrophils # 10.01 H (1.80-7.70) 10*3/uL Eosinophils # 0.43 H (0.04-0.35) 10*3/uL Glucose 108 H (74-99) mg/dL Calcium 10.7 H (8.4-10.2) mg/dL AST 42 H (14-36) U/L ALT 43 H (4-34) U/L Total Protein 9.1 H (6.3-8.2) g/dL Albumin 5.2 H (3.5-5.0) g/dL Urine Appearance Cloudy H (Clear) Urine Protein 1+ H (Negative) Ur Leukocyte Esterase Small H (Negative) Ur Squamous Epith Cells 23 H (0-4) /hpf Urine Bacteria Rare H (None) /hpf Urine Mucus Moderate H (None) /hpf Assessment and Plan (1) Necrotizing pancreatitis Narrative/Plan: 29-year-old female with history of alcohol induced pancreatitis with first episode in June 2024 with multiple recurrent episodes. Patient just recently quit drinking less than a month ago. Recent hospitalization for pancreatitis with necrotizing pancreatitis noted on CAT scan. Continue with symptomatic treatment. Aggressive IV hydration, keep n.p.o. Will consult general surgery to follow along. Continue to monitor closely for signs of infection. No leukocytosis at this time, patient is afebrile. Current Visit: Yes Status: Acute Code(s): K85.91 - ACUTE PANCREATITIS WITH UNINFECTED NECROSIS, UNSPECIFIED SNOMED Code(s): 9734436 (2) History of alcohol abuse Current Visit: Yes Status: Acute Code(s): F10.11 - ALCOHOL ABUSE, IN REMISSION SNOMED Code(s): 690663823 (3) Abdominal pain Current Visit: Yes Status: Acute Code(s): R10.9 - UNSPECIFIED ABDOMINAL PAIN SNOMED Code(s): 50920678 Plan: 1. Continue symptomatic and supportive care 2. Continue aggressive IV hydration 3. Keep n.p.o., may advance to clear liquid diet for dinner 4. Repeat CBC, CMP 5. Consult to general surgery 6. Continue with pain management 7. Continue with antiemetics as needed, Protonix 40 mg daily for GI prophylaxis 8. Monitor for signs of infection Thank you for this consultation, we will continue to follow along. Dr. Luis Alfredo Alvarez I agree with the dictator's note, documented as a scribe by Cheryl London.
--- NOTE | 2024-11-07 12:07 | P.GSCN ---
History of Present Illness Consult date: 11/07/24 History of present illness: CHIEF COMPLAINT: Abdominal pain HISTORY OF PRESENT ILLNESS: This is a 29-year-old female who presented with recurrent epigastric abdominal pain that radiates to her back. Patient recently just discharged from the hospital 3 days ago for necrotizing pancreatitis. Patient does have a history of alcohol abuse. She reports her last alcoholic drink was on 's Day. Patient reports she went home and was doing okay. She went out with a friend and ate a salad and a half of a hamburger. After eating she started vomiting. And therefore returns to the ER for further evaluation. Her lipase is normal. She did report some vomiting this morning. She is being seen by GI service this admission. Denies any fever chills or sweats. PAST MEDICAL HISTORY: See below PAST SURGICAL HISTORY: See below MEDICATIONS: See below ALLERGIES: See below SOCIAL HISTORY: No illicit drug use. REVIEW OF SYSTEMS: CONSTITUTIONAL: Denies fever or chills. HEENT: Denies blurred vision, vision changes, or eye pain. Denies hemoptysis CARDIOVASCULAR: Denies chest pain or pressure. RESPIRATORY: No shortness of breath. GASTROINTESTINAL: See HPI for pertinent findings HEMATOLOGIC: Denies bleeding disorders. GENITOURINARY: Denies any blood in urine or increased urinary frequency. SKIN: Denies pruitis. Denies rash. PHYSICAL EXAM: VITAL SIGNS: Reviewed GENERAL: Well-developed in no acute distress. HEENT: No sclera icterus. Extraocular movements grossly intact. Moist buccal mucosa. Head is atraumatic, normocephalic. No nasal drainage. ABDOMEN: Soft. Nondistended. Tenderness with palpation across the upper abdomen but mostly in the epigastric area and left upper quadrant. NEUROLOGIC: Alert and oriented. Cranial nerves II through XII grossly intact. LABORATORY DATA: WBC 13 down to 7.73 Hgb 14.5 platelets 245 Sodium 138 potassium 4.1 creatinine 0.60 Lactic acid 1.3 Total bili 1.1 AST 38 ALT 34 alk phos 61 Lipase 36 Serum alcohol level less than 10 IMAGING: Last CT scan abdomen pelvis 10/31/2024 reporting severely acute pancreatitis remain present greatest distally. nonenhancement of the pancreatic tail consist ent with necrotizing pancreatitis ASSESSMENT: 1. Epigastric abdominal pain 2. Necrotizing pancreatitis PLAN: - Keep patient n.p.o. - continue IV fluids - Continue pain management - Agree with GI consult. Await their further recommendations - Recommend repeating CT scan abdomen pelvis if patient continues to have vomiting Physician Cash Processor note has been reviewed by physician. Signing provider agrees with the documented findings, assessment, and plan of care. Past Medical History Past Medical History: Hypertension, Thyroid Disorder Additional Past Medical History / Comment(s): Hydradenitis suppertiva; Kidney stones, PANCREATITIS History of Any Multi-Drug Resistant Organisms: MRSA Year Discovered:: 10/09/24 MDRO Source:: buttock Past Surgical History: No Surgical Hx Reported Additional Past Surgical History / Comment(s): cyst removed from buttocks two years ago, cystoscopy with right ureteroscopy and holmium laser lithotripsy on 09/19/2020 Past Anesthesia/Blood Transfusion Reactions: No Reported Reaction Past Psychological History: No Psychological Hx Reported Smoking Status: Current every day smoker Past Alcohol Use History: Heavy Additional Past Alcohol Use History / Comment(s): Patient reports she has not drank alcohol since 10-15-24. Past Drug Use History: Marijuana - Past Family History Mother Family Medical History: No Reported History Medications and Allergies Home Medications Medication Instructions Recorded Confirmed Type Losartan [Cozaar] 100 mg PO DAILY 30 Days #30 tab 11/03/24 11/07/24 Rx amLODIPine [Norvasc] 10 mg PO DAILY 30 Days #30 tab 11/03/24 11/07/24 Rx hydroCHLOROthiazide [Hydrodiuril] 25 mg PO DAILY 30 Days #30 tab 11/03/24 11/07/24 Rx Allergies Allergy/AdvReac Type Severity Reaction Status Date / Time No Known Allergies Allergy Verified 11/07/24 09:56 Surgical - Exam Vital Signs Temp Pulse Resp BP Pulse Ox 98.7 F 93 18 142/106 99 11/06/24 19:01 11/06/24 19:01 11/06/24 19:01 11/06/24 19:01 11/06/24 19:01 Results - Labs 11/07/24 09:02 11/07/24 09:02 Abnormal Lab Results - Last 24 Hours (Table) 11/06/24 11/06/24 11/06/24 Range/Units 19:33 19:33 20:36 WBC 13.08 H (4.50-10.00) 10*3/uL RBC (4.10-5.20) 10*6/uL Hgb 18.0 H (12.0-15.0) g/dL Hct 49.3 H (37.2-46.3) % MCV 102.9 H (80.0-97.0) fL MCH 37.6 H (27.0-32.0) pg Immature Gran # 0.05 H (0.00-0.04) 10*3/uL Neutrophils # 10.01 H (1.80-7.70) 10*3/uL Eosinophils # 0.43 H (0.04-0.35) 10*3/uL Glucose 108 H (74-99) mg/dL Calcium 10.7 H (8.4-10.2) mg/dL AST 42 H (14-36) U/L ALT 43 H (4-34) U/L Total Protein 9.1 H (6.3-8.2) g/dL Albumin 5.2 H (3.5-5.0) g/dL Urine Appearance Cloudy H (Clear) Urine Protein 1+ H (Negative) Ur Leukocyte Esterase Small H (Negative) Ur Squamous Epith Cells 23 H (0-4) /hpf Urine Bacteria Rare H (None) /hpf Urine Mucus Moderate H (None) /hpf 11/07/24 11/07/24 Range/Units 09:02 09:02 WBC (4.50-10.00) 10*3/uL RBC 3.82 L (4.10-5.20) 10*6/uL Hgb (12.0-15.0) g/dL Hct (37.2-46.3) % MCV 105.2 H (80.0-97.0) fL MCH 38.0 H (27.0-32.0) pg Immature Gran # (0.00-0.04) 10*3/uL Neutrophils # (1.80-7.70) 10*3/uL Eosinophils # 0.39 H (0.04-0.35) 10*3/uL Glucose (74-99) mg/dL Calcium (8.4-10.2) mg/dL AST 38 H (14-36) U/L ALT (4-34) U/L Total Protein (6.3-8.2) g/dL Albumin (3.5-5.0) g/dL Urine Appearance (Clear) Urine Protein (Negative) Ur Leukocyte Esterase (Negative) Ur Squamous Epith Cells (0-4) /hpf Urine Bacteria (None) /hpf Urine Mucus (None) /hpf Diabetes panel 11/06/24 11/07/24 Range/Units 19:33 09:02 Sodium 139 138 (137-145) mmol/L Potassium 4.2 4.1 (3.5-5.1) mmol/L Chloride 100 107 (98-107) mmol/L Carbon Dioxide 27 25 (22-30) mmol/L BUN 13 10 (7-17) mg/dL Creatinine 0.69 0.60 (0.52-1.04) mg/dL Glucose 108 H 87 (74-99) mg/dL Calcium 10.7 H 9.6 (8.4-10.2) mg/dL AST 42 H 38 H (14-36) U/L ALT 43 H 34 (4-34) U/L Alkaline Phosphatase 78 61 (38-126) U/L Total Protein 9.1 H 6.7 (6.3-8.2) g/dL Albumin 5.2 H 3.8 (3.5-5.0) g/dL Calcium panel 11/06/24 11/07/24 Range/Units 19:33 09:02 Calcium 10.7 H 9.6 (8.4-10.2) mg/dL Albumin 5.2 H 3.8 (3.5-5.0) g/dL Pituitary panel 11/06/24 11/07/24 Range/Units 19:33 09:02 Sodium 139 138 (137-145) mmol/L Potassium 4.2 4.1 (3.5-5.1) mmol/L Chloride 100 107 (98-107) mmol/L Carbon Dioxide 27 25 (22-30) mmol/L BUN 13 10 (7-17) mg/dL Creatinine 0.69 0.60 (0.52-1.04) mg/dL Glucose 108 H 87 (74-99) mg/dL Calcium 10.7 H 9.6 (8.4-10.2) mg/dL Adrenal panel 11/06/24 11/07/24 Range/Units 19:33 09:02 Sodium 139 138 (137-145) mmol/L Potassium 4.2 4.1 (3.5-5.1) mmol/L Chloride 100 107 (98-107) mmol/L Carbon Dioxide 27 25 (22-30) mmol/L BUN 13 10 (7-17) mg/dL Creatinine 0.69 0.60 (0.52-1.04) mg/dL Glucose 108 H 87 (74-99) mg/dL Calcium 10.7 H 9.6 (8.4-10.2) mg/dL Total Bilirubin 0.9 1.1 (0.2-1.3) mg/dL AST 42 H 38 H (14-36) U/L ALT 43 H 34 (4-34) U/L Alkaline Phosphatase 78 61 (38-126) U/L Total Protein 9.1 H 6.7 (6.3-8.2) g/dL Albumin 5.2 H 3.8 (3.5-5.0) g/dL
[2024-11-07 16:04] VITALS: BMI 32.3
[2024-11-07] MEDS: IOPAMIDOL CONTRAST (ORAL USE) VIAL PO PRN (20:24)
--- NOTE | 2024-11-07 22:15 | CT ---
EXAMINATION TYPE: CT abdomen pelvis w con DATE OF EXAM: 11/07/2024 9:52 PM COMPARISON: CT abdomen pelvis most recent from 10/31/2024 CLINICAL INDICATION: Female, 29 years old with history of pancreatitis; Pancreatitis. TECHNIQUE: Axial CT abdomen pelvis w con;Sagittal and coronal reformats were created on a separate w orkstation. Contrast used:100ml mL of Isovue 300 with IV Contrast, (none if empty) Oral contrast used: with Oral Contrast (none if empty) CT DLP: 1424.9 mGycm, Automated exposure control for dose reduction was used. FINDINGS: LOWER CHEST: Unremarkable ABDOMEN LIVER: Unremarkable GALLBLADDER AND BILE DUCTS: Unremarkable. PANCREAS: Fat stranding changes around the pancreas most proximal on the tail. No evidence for organi zing fluid collection. Pancreatic parenchyma enhances uniformly. Fat stranding changes have slightly improved/decreased compared to prior. SPLEEN: Small splenule is present. ADRENAL GLANDS: Unremarkable. KIDNEYS AND URETERS: No evidence of hydronephrosis or obstructing renal calculus. The ureters are unr emarkable. Nonobstructing left 2 mm calculus. PELVIS BLADDER: No evidence for wall thickening or mass given limitations of exam. REPRODUCTIVE: Unremarkable. ABDOMEN & PELVIS STOMACH AND BOWEL: No evidence of bowel obstruction. Appendix is normal. PERITONEUM/RETROPERITONEUM: No evidence of pneumoperitoneum or free fluid. VASCULATURE: No evidence of aortic aneurysm. MUSCULOSKELETAL: No acute osseous abnormalities LYMPH NODES: No gross evidence for lymphadenopathy. SOFT TISSUE/ABDOMINAL WALL: Injection granulomas along the anterior abdominal wall. IMPRESSION: 1. Mild uncomplicated pancreatitis suggested. Findings of fat stranding slightly improved from 025 2. Nonobstructing left 2 mm calculus. [facility], , 11/07/2024 10:13 PM
--- NOTE | 2024-11-08 01:21 | HP ---
HISTORY AND PHYSICAL CHIEF COMPLAINT: Abdominal pain. HISTORY OF PRESENT ILLNESS: This is a 29-year-old woman with a past medical history of acute pancreatitis related to alcohol, had necrotizing pancreatitis recently. The patient was re-admitted with severe pain in the anterior part of the abdomen and the amylase and lipase are normal and the patient admitted for further evaluation and treatment. The patient is not drinking alcohol at this time currently. There is no history of any fever, rigors, or chills. PAST MEDICAL HISTORY: History of recurrent pancreatitis, history of hypertension. Rest of the history and rest of the chart are also reviewed. HOME MEDICATIONS: Reviewed, HydroDIURIL. Dose and rest of medications reviewed. ALLERGIES: None. FAMILY HISTORY: No history of heart disease or strokes in the family. SOCIAL HISTORY: Alcohol and history of smoking, THC. REVIEW OF SYSTEMS: A 14-point review of systems is negative except as mentioned earlier. PHYSICAL EXAMINATION: VITAL SIGNS: Pulse is 71, blood pressure 132/84, respirations 16. HEENT: Conjunctivae normal. NECK: No JVD. CARDIOVASCULAR: S1, S2. RESPIRATIONS: Breath sounds diminished at the bases. ABDOMEN: Soft, mild diffuse tenderness in the upper abdomen. No guarding. No rigidity. No mass palpable. No ascites. Bowel sounds diminished. LEGS: No edema. NERVOUS SYSTEM: Nonfocal. LABORATORY DATA: WBC 7.73, improved. Rest of the labs are noted. Amylase and lipase are normal. UA noted. ASSESSMENT: 1. Severe abdominal pain, recurrent acute pancreatitis, rule out pancreatic cyst. 2. History of necrotizing pancreatitis. 3. History of EtOH abuse. 4. Hypertension. 5. History of hidradenitis suppurative. 6. Multiple complex medical issues. RECOMMENDATIONS: Recommended to continue current medications and continue symptomatic treatment. Otherwise, I recommend pain management, proton pump inhibitors. Closely follow with Surgery and as well as GI. Repeat CAT scan. Guarded prognosis. Further recommendations to follow. MMODL / IJN: [id number] /
[2024-11-08] MEDS: HYDROmorphone 0.5 MG/0.5 ML SYRINGE IVP PRN (08:33)
[2024-11-08 08:37] LABS: Basophils # (A) 0.04 X 10*3/uL (0.00-0.10); Basophils % (A) 0.6 %; Eosinophils # (A) 0.36 X 10*3/uL (0.04-0.35); Eosinophils % (A) 5.2 %; HCT 40.4 % (37.2-46.3); Lymphocytes # (A) 1.99 X 10*3/uL (0.90-5.00); MCHC 34.7 g/dL (32.0-37.0); MCV 106.9 FL (80.0-97.0); Mean Platelet Volume 11.1 FL (9.5-12.2); Monocytes # (A) 0.61 X 10*3/uL (0.20-1.00); Monocytes % (A) 8.9 %; NRBC Per 100 WBC 0 X 10*3/uL (0.00-0.01); Neutrophils # (A) 3.85 X 10*3/uL (1.80-7.70); Platelet Count 250 X 10*3/uL (140-440); RBC 3.78 X 10*6/uL (4.10-5.20); RDW 13.2 % (11.5-14.5); WBC 6.87 X 10*3/uL (4.50-10.00)
--- NOTE | 2024-11-08 14:31 | P.PN ---
Subjective Progress Note Date: 11/08/24 SURGICAL PROGRESS NOTE CHIEF COMPLAINT: Pancreatitis HISTORY OF PRESENT ILLNESS: Patient reports her abdominal pain is less. She did have an episode of vomiting last night. She was able to tolerate clears this morning. CT scan abdomen pelvis is looking better. Reports mild uncomplicated pancreatitis and findings of fat stranding was slightly improved from CAT scan of 10/31/2024. Afebrile. WBC 6.87 PHYSICAL EXAM: VITAL SIGNS: Reviewed. GENERAL: Well-developed in no acute distress. ABDOMEN: Soft. Nondistended. Tenderness with palpation epigastric area NEUROLOGIC: Alert and oriented. Cranial nerves II through XII grossly intact. ASSESSMENT: 1. Necrotizing pancreatitis repeat CAT scan showing improvement with mild uncomplicated pancreatitis 2. History of alcohol use PLAN: - Agree with advancing diet to full liquids - Continue supportive care Physician Candy Maker Helper note has been reviewed by physician. Signing provider agrees with the documented findings, assessment, and plan of care. I have personally seen and examined the patient, reviewed the INSECTICIDE EXPERT /PAs history, exam and MDM and agree with the assessment and plan as written. Based on total visit time, I have performed more than 50% of the visit. As above: Patient doing better. Repeat CAT scan shows no definitive ischemic changes. Overall degree of inflammation much improved. Agree with resuming regular low-fat diet. May discharge from our standpoint once pain better controlled. Objective - Vital Signs Vital signs: Vital Signs Temp 97.5 F L 11/08/24 07:00 Pulse 60 11/08/24 07:00 Resp 16 11/08/24 07:00 BP 124/79 11/08/24 07:00 Pulse Ox 99 11/08/24 07:00 FiO2 Intake & Output 11/07/24 11/08/24 11/08/24 18:59 06:59 18:59 Intake Total 590 180 Balance 590 180 Weight 90.718 kg Intake: Oral 590 180 Other: Voiding Method Toilet Toilet Toilet # Voids 3 3 - Labs CBC & Chem 7: 11/08/24 03:37 11/07/24 09:02 Labs: Abnormal Lab Results - Last 24 Hours (Table) 11/08/24 Range/Units 03:37 RBC 3.78 L (4.10-5.20) X 10*6/uL MCV 106.9 H (80.0-97.0) FL MCH 37.0 H (27.0-32.0) pg Eosinophils # 0.36 H (0.04-0.35) X 10*3/uL
[2024-11-08] MEDS ORDERED: HYDROcodone/APAP 5-325MG 1 EACH TAB PO PRN (14:47)
[2024-11-08] MEDS: ONDANSETRON 4 MG/2 ML VIAL IVP PRN (17:03)
--- NOTE | 2024-11-08 17:57 | P.PN ---
Subjective Progress Note Date: 11/08/24 Principal diagnosis: Pancreatitis This a pleasant 29-year-old female who presented to the emergency department with ongoing abdominal pain. Patient was recently admitted and discharged from 10/28/2024 to 11/03/2024 for necrotizing pancreatitis. She states that she felt a little better on discharge but never had pain go away completely. She states she continues to have pain at home associated with some nausea and vomiting and returned back for further treatment. She has a history of alcohol induced pancreatitis first episode being in June 2024. She has had several episodes following and has had multiple emergency room visits since that time he and several admissions. During her last admission she had a CT of the abdomen pelvis on 10/31/2024 which reported findings consistent with fairly severe acute pancreatitis remain present greatest distally. There is now 9 enhancement of the pancreatic tail consistent with necrotizing pancreatitis. No imaging completed on this admission. Patient states she is having nausea but no vomiting at this time diffuse pain but mostly in the epigastric and left upper quadrant. She states she has not had any alcohol since 's Day. States that prior to that she had been a heavy drinker about a half a pint to a pint daily for 1 to 2 years. Patient had mild leukocytosis on admitting labs with a WBC of 13.0. Patient states she has been afebrile. Today's labs leukocytosis improved. WBC 7.7 hemoglobin 14.5 platelet count 245,000 sodium 138 potassium 4.1 BUN 10 creatinine 0.6 total bilirubin 1.1 AST 38 ALT 34 alkaline phosphatase 61 lipase 36 November 08, 2024 Patient seen and examined today as a follow-up. States abdominal pain is improving. No vomiting but she does have nausea. Tolerating her clear liquid diet. Would like to try full liquid diet. Medical team had ordered a CT of the abdomen pelvis with contrast which reports improvement in pancreatitis and improvement from previous CT on 10/31/2024. Patient is afebrile, no leukocytosis. Objective - Vital Signs Vital signs: Vital Signs Temp 97.5 F L 11/08/24 07:00 Pulse 60 11/08/24 07:00 Resp 16 11/08/24 07:00 BP 124/79 11/08/24 07:00 Pulse Ox 99 11/08/24 07:00 FiO2 Intake & Output 11/07/24 11/08/24 11/08/24 18:59 06:59 18:59 Intake Total 590 Balance 590 Weight 90.718 kg Intake: Oral 590 Other: Voiding Method Toilet Toilet Toilet # Voids 3 3 - Exam General appearance: The patient is alert, oriented, appears in no acute distress. HET: Head is normocephalic and atraumatic. Conjunctiva pink. Sclera anicteric. Neck: Supple without lymphadenopathy. Abdomen: Soft, right upper quadrant, epigastric and left upper quadrant tenderness, nondistended. Extremities: Normal skin color and turgor. No pedal edema Skin: No rashes, no jaundice Neurological: No focal deficits. Alert and oriented. - Labs CBC & Chem 7: 11/08/24 03:37 11/07/24 09:02 Labs: Abnormal Lab Results - Last 24 Hours (Table) 11/07/24 11/07/24 11/08/24 Range/Units 09:02 09:02 03:37 RBC 3.82 L 3.78 L (4.10-5.20) 10*6/uL MCV 105.2 H 106.9 H (80.0-97.0) fL MCH 38.0 H 37.0 H (27.0-32.0) pg Eosinophils # 0.39 H 0.36 H (0.04-0.35) 10*3/uL AST 38 H (14-36) U/L Assessment and Plan (1) Necrotizing pancreatitis Narrative/Plan: 29-year-old female with history of alcohol induced pancreatitis with first episode in June 2024 with multiple recurrent episodes. Patient just recently quit drinking less than a month ago. Recent hospitalization for pancreatitis with necrotizing pancreatitis noted on CAT scan. Continue with sym ptomatic treatment. Aggressive IV hydration, keep n.p.o. Will consult general surgery to follow along. Continue to monitor closely for signs of infection. No leukocytosis at this time, patient is afebrile. Improvement seen on repeat CAT scan of abdomen and pelvis with contrast. Current Visit: Yes Status: Acute Code(s): K85.91 - ACUTE PANCREATITIS WITH UNINFECTED NECROSIS, UNSPECIFIED SNOMED Code(s): 2405772 (2) History of alcohol abuse Current Visit: Yes Status: Acute Code(s): F10.11 - ALCOHOL ABUSE, IN REMISSION SNOMED Code(s): 945586843 (3) Abdominal pain Current Visit: Yes Status: Acute Code(s): R10.9 - UNSPECIFIED ABDOMINAL PAIN SNOMED Code(s): 15327381 Plan: 1. Continue symptomatic and supportive care 2. Continue aggressive IV hydration 3. Advance to full liquid diet then may advance to low-fat diet if tolerating well 4. Continue with recommendations from general surgery 5. Encourage ambulation 6. Continue with pain management 7. Continue with antiemetics as needed, Protonix 40 mg daily for GI prophylaxis 8. Monitor for signs of infection 9. Anticipate discharge in the next 24 to 48 hours Thank you for this consultation, we will continue to follow along. Dr. Luis Alfredo Alvarez I agree with the dictator's note, documented as a scribe by Cheryl London.
[2024-11-08 18:55] LABS: HGB 14.5 g/dL (12.0-15.0)
[2024-11-08 19:59] VITALS: BP 153/98; PULSE 74; RESP 17; TEMP 98.2
--- NOTE | 2024-11-08 22:54 | P.PN ---
Subjective Progress Note Date: 11/08/24 This is a pleasant 29-year-old female who was recently admitted with severe abdominal pain with acute recurrent pancreatitis. Previous CAT scan and most recent admission in October for this showed concerns of possible necrotizing pancreatitis and patient underwent repeat CT abdomen yesterday showing improv ements and patient is reported to have improvements in abdominal pain. Patient maintaining clear liquids with occasional nausea and denies any further vomiting asking for advancing diet. Will advance to full liquids and if tolerating low- fat/low fiber diet. Continue IV hydration and will follow-up on repeat labs and discuss possible discharge planning in the next 24 hours Review of systems: Constitutional: No reports of fatigue, fever, or chills Cardiovascular: No reports of chest pain or palpitations Respiratory: No reports of shortness of breath or cough GI: reports of occasional nausea, no reports of vomiting, no diarrhea and last bowel movement a couple of days ago that was formed : No reports of dysuria or retention Neurovascular: reports of generalized weakness, All medications have been reviewed Active Medications PHYSICAL EXAMINATION: GENERAL: The patient is alert and oriented x4, Well developed, well nourished. HEENT: Pupils are round and equally reacting to light. EOMI. no scleral icterus. No conjunctival pallor. Normocephalic, atraumatic. No pharyngeal erythema. No thyromegaly. CARDIOVASCULAR: S1 and S2 muffled PULMONARY: diminished breath sounds bilaterally with no wheezing or rhonchi noted. ABDOMEN: soft. Nontender on exam. obese. non-distended, normoactive bowel sounds. No palpable organomegaly. MUSCULOSKELETAL: No joint swelling or deformity. EXTREMITIES: No cyanosis, clubbing, or pedal edema. NEUROLOGICAL: Gross neurological examination did not reveal any focal deficits. Diffuse weakness SKIN: No rashes. Assessment: Severe abdominal pain, recurrent acute pancreatitis, rule out pancreatic cyst History of necrotizing pancreatitis, repeat CT done this admission showing improvement History of EtOH abuse, last drink October 15, 2024 Hypertension History of hidradenitis suppurativa Obesity with a BMI of 32.3 GI prophylaxis DVT prophylaxis Full code Plan: Recommend to continue with current medications and management with general surgery and GI following. Patient maintained on normal saline and IV hydration has been maintained on clear liquids and tolerating with some minimal improvement in abdominal pain although asking for advancing diet. Patient is having some nausea with no vomiting and will advance to full liquids and possible low fiber/low fat diet Follow-up on repeat labs and replace electrolytes per protocol Encourage increase activity as tolerated Continue with pain management and discussed with patient about avoiding IV narcotics if possible Continue as needed bowel regimen No plans of surgical intervention at this time and CT showing improvements from previous imaging Will discuss with consultations about discharge planning in the next 24 hours The impression and plan of care has been dictated by Lindsey Banda, nurse practitioner as directed. Dr. Arpita MD I have performed a history and examination and MDM of this patient, discussed the same with the dictator, and agree with the dictator's assessment and plan as written ,documented as a scribe. Based on total visit time, I have performed more than 50% of the visit. Any additional findings or plans will be noted. Objective - Vital Signs Vital signs: Vital Signs Temp 97.5 F L 11/08/24 07:00 Pulse 60 11/08/24 07:00 Resp 16 11/08/24 07:00 BP 124/79 11/08/24 07:00 Pulse Ox 99 11/08/24 07:00 FiO2 Intake & Output 11/07/24 11/08/24 11/08/24 18:59 06:59 18:59 Intake Total 590 Balance 590 Weight 90.718 kg Intake: Oral 590 Other: Voiding Method Toilet Toilet Toilet # Voids 3 3 - Labs CBC & Chem 7: 11/08/24 03:37 11/07/24 09:02 Labs: Abnormal Lab Results - Last 24 Hours (Table) 11/08/24 Range/Units 03:37 RBC 3.78 L (4.10-5.20) X 10*6/uL MCV 106.9 H (80.0-97.0) FL MCH 37.0 H (27.0-32.0) pg Eosinophils # 0.36 H (0.04-0.35) X 10*3/uL
--- NOTE | 2024-11-09 14:57 | P.DS ---
Providers Date of admission: 11/06/24 22:11 Expected date of discharge: 11/08/24 Attending physician: Felice Albert Consults: 11/06/24 22:08 Consult Physician Urgent Consulting Provider: Heidi Alvarez Consult Reason/Comments: Pancreatitis Do you want consulting provider notified?: Yes 11/07/24 08:47 Consult Physician Routine Consulting Provider: Fabio Agrawal Consult Reason/Comments: Necrotizing pancreatitis Do you want consulting provider notified?: Already Contacted Primary care physician: Tiara Pollock Hospital Course: Final diagnosis Severe abdominal pain, recurrent acute pancreatitis, rule out pancreatic cyst History of necrotizing pancreatitis, repeat CT done this admission showing improvement History of EtOH abuse, last drink October 15, 2024 Hypertension History of hidradenitis suppurativa Obesity with a BMI of 32.3 GI prophylaxis DVT prophylaxis Full code Discharge disposition Patient has decided to leave AGAINST MEDICAL ADVICE. Risks versus benefits explained and patient proceeded to sign paperwork and left AGAINST MEDICAL ADVICE. Patient will follow-up with Dr. Mihir Albert in the outpatient setting upon discharge. Patient is to continue with outpatient follow-up with GI as scheduled. Total time taken is greater than 35 minutes. Hospital course This is a 29-year-old female who was recently admitted with severe abdominal pain with recurrent pancreatitis being closely monitored by GI and general surgery. Patient has history of necrotizing pancreatitis and was evaluated by general surgery underwent repeat CT and actually showing some improvements with no surgical intervention planned at this time. Patient was continued on IV hydration along with clear liquid diet and slowly advanced to full liquids and low-fat/low fiber. Per nursing staff patient last night persistent on leaving as she has children at home and left AGAINST MEDICAL ADVICE. Risk versus benefits were explained including and patient verbalized understanding and signed the paperwork. Please refer to other consultation notes and nursing documentation for further HPI. Patient is a high risk for readmissions and has had multiple hospitalizations and ER visits secondary to this. Physical exam: Gen: This is a 29-year-old female who is awake, alert and oriented x 3, well- developed, well-nourished, obese HEENT: Head is atraumatic, normocephalic. Pupils equal, round. Sclerae is anicteric. NECK: Supple. No JVD. No lymphadenopathy. No thyromegaly. LUNGS: Clear to auscultation. No wheezes or rhonchi. No intercostal retractions. HEART: Regular rate and rhythm. No murmur. ABDOMEN: Soft. Bowel sounds are present. No masses. No tenderness. EXTREMITIES: No pedal edema. No calf tenderness. NEUROLOGICAL: Patient is awake, alert and oriented x3. Cranial nerves 2 through 12 are grossly intact. Please refer to medication reconciliation sheet for a list of medications. The impression and plan of care has been dictated by Lindsey Banda, Nurse Practitioner as directed. Dr. Arpita MD I have performed a history and examination and MDM of this patient, discussed the same with the dictator, and agree with the dictator's assessment and plan as written ,documented as a scribe. Based on total visit time, I have performed more than 50% of the visit. Patient Condition at Discharge: Stable Plan - Discharge Summary Discharge Rx Participant: No New Discharge Prescriptions: No Action Losartan [Cozaar] 100 mg PO DAILY 30 Days #30 tab hydroCHLOROthiazide [Hydrodiuril] 25 mg PO DAILY 30 Days #30 tab amLODIPine [Norvasc] 10 mg PO DAILY 30 Days #30 tab Discharge Medication List Losartan [Cozaar] 100 mg PO DAILY 30 Days #30 tab 11/03/24 [Rx] amLODIPine [Norvasc] 10 mg PO DAILY 30 Days #30 tab 11/03/24 [Rx] hydroCHLOROthiazide [Hydrodiuril] 25 mg PO DAILY 30 Days #30 tab 11/03/24 [Rx] Follow up Appointment(s)/Referral(s): Tiara Pollock MD [Primary Care Provider] - 1-2 days Discharge Disposition: LEFT AGAINST MEDICAL ADVICE
== END 2024-11-08 19:59 | disposition left against medical advice (07) ==
LOC: EC 18:59 → 6NMEDSUR 22:11
PROVIDERS: ADMIT Hospitalist; ATTEND Hospitalist
DX: K85.91 Acute pancreatitis with uninfected necrosis, unspecified (principal); E66.9 Obesity, unspecified; F10.10 Alcohol abuse, uncomplicated; F17.200 Nicotine dependence, unspecified, uncomplicated; I10 Essential (primary) hypertension; Z53.29 Procedure and treatment not carried out because of patient's decision for other reasons; Z68.32 Body mass index [BMI] 32.0-32.9, adult; Z79.899 Other long term (current) drug therapy; Z87.442 Personal history of urinary calculi
CPT/HCPCS: 96376 ×3; 96375 ×2; 96361; 96374; 99284; 36415; 80053 ×2; 83605; 83690 ×2; 85025 ×3; 81001; 81025; 74177; G0378 ×3; G0480; J1171 ×4; J0780 ×2; J2405 ×3; J1885 ×3; Q9967; J2470 ×2; 80320

== ENCOUNTER 2024-11-12 06:34 | Emergency (ER) | payer OTHER ==
[2024-11-12 06:41] VITALS: RESP 18
[2024-11-12] MEDS: SODIUM CHLORIDE 0.9% 1,000 ML IV SCH (06:52)
[2024-11-12] MEDS: droPERidol 5 MG/2 ML VIAL IVP ONE (06:52)
--- NOTE | 2024-11-12 07:02 | ED ---
Abdominal Pain HPI - General Chief Complaint: Abdominal Pain Stated Complaint: Abd pain Time Seen by Provider: 11/12/24 06:36 Source: patient, EMS, RN notes reviewed Mode of arrival: EMS Limitations: no limitations - History of Present Illness Initial Comments: 29-year-old female presents emergency department complaint abdominal pain. Patient was recently admitted and discharged 2 days ago for acute pancreatitis. Patient states that she did take 1 shot of liquor, did eat some food and she left against medical vice because it was her daughter's birthday states that she has had increasing abdominal pain, vomiting. Patient states that she left the hospital not feeling well and she was told not to leave. Patient denies any fevers or chills no chest pain no shortness of breath. - Related Data Previous Rx's Medication Instructions Recorded Losartan [Cozaar] 100 mg PO DAILY 30 Days #30 tab 11/03/24 amLODIPine [Norvasc] 10 mg PO DAILY 30 Days #30 tab 11/03/24 hydroCHLOROthiazide [Hydrodiuril] 25 mg PO DAILY 30 Days #30 tab 11/03/24 Ketorolac [Toradol] 10 mg PO Q8HR #15 tab 11/12/24 Ondansetron Odt [Zofran Odt] 4 mg PO Q8HR PRN #10 tab 11/12/24 Allergies Allergy/AdvReac Type Severity Reaction Status Date / Time No Known Allergies Allergy Verified 11/07/24 09:56 Review of Systems ROS Statement: Those systems with pertinent positive or pertinent negative responses have been documented in the HPI. ROS Other: All systems not noted in ROS Statement are negative. Past Medical History Past Medical History: Hypertension, Thyroid Disorder Additional Past Medical History / Comment(s): Hydradenitis suppertiva; Kidney stones, PANCREATITIS History of Any Multi-Drug Resistant Organisms: MRSA Date of last positivie culture/infection: 10/09/24 MDRO Source:: buttock Past Surgical History: No Surgical Hx Reported Additional Past Surgical History / Comment(s): cyst removed from buttocks two years ago, cystoscopy with right ureteroscopy and holmium laser lithotripsy on 09/19/2020 Past Anesthesia/Blood Transfusion Reactions: No Reported Reaction Past Psychological History: No Psychological Hx Reported Smoking Status: Current every day smoker Past Alcohol Use History: Heavy Past Drug Use History: Marijuana - Past Family History Mother Family Medical History: No Reported History General Exam Limitations: no limitations General appearance: alert, in no apparent distress Head exam: Present: atraumatic, normocephalic, normal inspection Eye exam: Present: normal appearance, PERRL, EOMI. Absent: scleral icterus, conjunctival injection, periorbital swelling ENT exam: Present: normal exam, normal oropharynx, mucous membranes moist Neck exam: Present: normal inspection, full ROM. Absent: tenderness, meningismus, lymphadenopathy Respiratory exam: Present: normal lung sounds bilaterally. Absent: respiratory distress, wheezes, rales, rhonchi, stridor Cardiovascular Exam: Present: normal rhythm, tachycardia, normal heart sounds. Absent: systolic murmur, diastolic murmur, rubs, gallop, clicks GI/Abdominal exam: Present: soft, tenderness, normal bowel sounds. Absent: distended, guarding, rebound, rigid Course Vital Signs 11/12/24 11/12/24 11/12/24 06:36 07:44 09:03 Temperature 97.8 F 97.5 F L 97.9 F Pulse Rate 120 H 86 79 Respiratory 18 18 18 Rate Blood Pressure 151/111 145/101 132/96 O2 Sat by Pulse 98 97 98 Oximetry Medical Decision Making - Medical Decision Making Was pt. sent in by a medical professional or institution (, PA, AMBULATORY CARE NURSE, urgent care, hospital, or retirement...) When possible be specific @ -No Did you speak to anyone other than the patient for history (EMS, parent, family, police, friend...)? What history was obtained from this source @ -No Did you review nursing and triage notes (agree or disagree)? Why? @ -I reviewed and agree with nursing and triage notes Were old charts reviewed (outside hosp., previous admission, EMS record, old EKG, old radiological studies, urgent care reports/EKG's, retirement records)? Report findings @ -Reviewed recent CT of the abdomen pelvis showing mild uncomplicated jessica creatitis improving from prior, inpatient records Differential Diagnosis (chest pain, altered mental status, abdominal pain women, abdominal pain men, vaginal bleeding, weakness, fever, dyspnea, syncope, headache, dizziness, GI bleed, back pain, seizure, CVA, palpatations, mental health, musculoskeletal)? @ -Differential Abdominal Pain Women: Appendicitis, Cholecystitis, diverticulosis, ischemic bowel, pancreatitis, hepatitis, UTI, gastroenteritis, AAA, incarcerated hernia, bowel obstruction, c onstipation, inflammatory bowel, hepatitis, peptic ulcer disease, splenic infarction, perforated viscus, vulvitis, ovarian torsion, PID, kidney stone, placenta abruption, this is not meant to be an all-inclusive list EKG interpreted by me (3pts min.). @ -None X-rays interpreted by me (1pt min.). @ -None done CT interpreted by me (1pt min.). @ -None done U/S interpreted by me (1pt. min.). @ -None done What testing was considered but not performed or refused? (CT, X-rays, U/S, labs)? Why? @ -None What meds were considered but not given or refused? Why? @ -None Did you discuss the management of the patient with other professionals (professionals i.e. , PA, AMBULATORY CARE NURSE, lab, RT, psych nurse, high school social science teacher, manager land, teacher, assignment officer, disability case manager)? Give summary @ -No Was smoking cessation discussed for >3mins.? @ -No Was critical care preformed (if so, how long)? @ -No Were there social determinants of health that impacted care today? How? (Homelessness, low income, unemployed, alcoholism, drug addiction, transportation, low edu. Level, literacy, decrease access to med. care, fci, rehab)? @ -No Was there de-escalation of care discussed even if they declined (Discuss DNR or withdrawal of care, Hospice)? DNR status @ -No What co-morbidities impacted this encounter? (DM, HTN, Smoking, COPD, CAD, Cancer, CVA, ARF, Chemo, Hep., AIDS, mental health diagnosis, sleep apnea, morbid obesity)? @ -Alcohol abuse Was patient admitted / discharged? Hospital course, mention meds given and route , prescriptions, significant lab abnormalities, going to OR and other pertinent info. @ -Discharge patient presented for abdominal pain she recently signed AGAINST MEDICAL ADVICE. Patient does have acute alcohol intoxication, alcohol abuse history this more likely cause increase in abdominal pain. Only low-fat diet. Patient is discharged in stable condition return for as discussed. Undiagnosed new problem with uncertain prognosis? @ -No Drug Therapy requiring intensive monitoring for toxicity (Heparin, Nitro, Insulin, Cardizem)? @ -No Were any procedures done? @ -No Diagnosis/symptom? @ -Abdominal pain, chronic pancreatitis, alcohol intoxication, alcohol abuse Acute, or Chronic, or Acute on Chronic? @ -Acute, chronic pancreatitis Uncomplicated (without systemic symptoms) or Complicated (systemic symptoms)? @ -Complicated Side effects of treatment? @ -No Exacerbation, Progression, or Severe Exacerbation? @ -No Poses a threat to life or bodily function? How? (Chest pain, [place], [place], pneumonia, PE, COPD, DKA, ARF, appy, cholecystitis, CVA, Diverticulitis, Homicidal, Suicidal, threat to staff... and all critical care pts) @ -No - Lab Data Result diagrams: 11/12/24 06:48 11/12/24 06:48 Lab Results 11/12/24 11/12/24 11/12/24 Range/Units 06:48 06:48 07:55 WBC 8.02 (4.50-10.00) 10*3/uL RBC 4.58 (4.10-5.20) 10*6/uL Hgb 16.8 H (12.0-15.0) g/dL Hct 45.6 (37.2-46.3) % MCV 99.6 H D (80.0-97.0) fL MCH 36.7 H (27.0-32.0) pg MCHC 36.8 (32.0-37.0) g/dL Plt Count 343 (140-440) 10*3/uL MPV 10.4 (9.5-12.2) fL Immature Gran % (Auto) 0.4 % Neutrophils % 50.4 % Lymphocytes % 32.4 % Monocytes % 9.6 % Eosinophils % 6.7 % Basophils % 0.5 % Immature Gran # 0.03 (0.00-0.04) 10*3/uL Neutrophils # 4.04 (1.80-7.70) 10*3/uL Lymphocytes # 2.60 (0.90-5.00) 10*3/uL Monocytes # 0.77 (0.20-1.00) 10*3/uL Eosinophils # 0.54 H (0.04-0.35) 10*3/uL Basophils # 0.04 (0.00-0.10) 10*3/uL Sodium 142 (137-145) mmol/L Potassium 3.8 (3.5-5.1) mmol/L Chloride 106 (98-107) mmol/L Carbon Dioxide 18 L (22-30) mmol/L Anion Gap 18 mmol/L BUN 7 (7-17) mg/dL Creatinine 0.69 (0.52-1.04) mg/dL Est GFR (CKD-EPI)AfAm >90 (>60 ml/min/1.73 sqM) Est GFR (CKD-EPI)NonAf >90 (>60 ml/min/1.73 sqM) Glucose 89 (74-99) mg/dL Calcium 10.3 H (8.4-10.2) mg/dL Magnesium 1.8 (1.6-2.3) mg/dL Total Bilirubin 0.8 (0.2-1.3) mg/dL AST 40 H (14-36) U/L ALT 28 (4-34) U/L Alkaline Phosphatase 67 (38-126) U/L Total Protein 8.5 H (6.3-8.2) g/dL Albumin 4.9 (3.5-5.0) g/dL Lipase 48 (23-300) U/L Urine Color Yellow Urine Appearance Cloudy H (Clear) Urine pH 6.0 (5.0-8.0) Ur Specific [place] 1.020 (1.001-1.035) Urine Protein Negative (Negative) Urine Glucose (UA) Negative (Negative) Urine Ketones Negative (Negative) Urine Blood Negative (Negative) Urine Nitrite Negative (Negative) Urine Bilirubin Negative (Negative) Urine Urobilinogen <2.0 (<2.0) mg/dL Ur Leukocyte Esterase Trace H (Negative) Urine RBC 1 (0-5) /hpf Urine WBC 1 (0-5) /hpf Ur Squamous Epith Cells 11 H (0-4) /hpf Urine Bacteria Rare H (None) /hpf Urine Mucus Rare H (None) /hpf Urine HCG, Qual (Not Detectd) Serum Alcohol 75 mg/dL 11/12/24 Range/Units 07:55 WBC (4.50-10.00) 10*3/uL RBC (4.10-5.20) 10*6/uL Hgb (12.0-15.0) g/dL Hct (37.2-46.3) % MCV (80.0-97.0) fL MCH (27.0-32.0) pg MCHC (32.0-37.0) g/dL Plt Count (140-440) 10*3/uL MPV (9.5-12.2) fL Immature Gran % (Auto) % Neutrophils % % Lymphocytes % % Monocytes % % Eosinophils % % Basophils % % Immature Gran # (0.00-0.04) 10*3/uL Neutrophils # (1.80-7.70) 10*3/uL Lymphocytes # (0.90-5.00) 10*3/uL Monocytes # (0.20-1.00) 10*3/uL Eosinophils # (0.04-0.35) 10*3/uL Basophils # (0.00-0.10) 10*3/uL Sodium (137-145) mmol/L Potassium (3.5-5.1) mmol/L Chloride (98-107) mmol/L Carbon Dioxide (22-30) mmol/L Anion Gap mmol/L BUN (7-17) mg/dL Creatinine (0.52-1.04) mg/dL Est GFR (CKD-EPI)AfAm (>60 ml/min/1.73 sqM) Est GFR (CKD-EPI)NonAf (>60 ml/min/1.73 sqM) Glucose (74-99) mg/dL Calcium (8.4-10.2) mg/dL Magnesium (1.6-2.3) mg/dL Total Bilirubin (0.2-1.3) mg/dL AST (14-36) U/L ALT (4-34) U/L Alkaline Phosphatase (38-126) U/L Total Protein (6.3-8.2) g/dL Albumin (3.5-5.0) g/dL Lipase (23-300) U/L Urine Color Urine Appearance (Clear) Urine pH (5.0-8.0) Ur Specific [place] (1.001-1.035) Urine Protein (Negative) Urine Glucose (UA) (Negative) Urine Ketones (Negative) Urine Blood (Negative) Urine Nitrite (Negative) Urine Bilirubin (Negative) Urine Urobilinogen (<2.0) mg/dL Ur Leukocyte Esterase (Negative) Urine RBC (0-5) /hpf Urine WBC (0-5) /hpf Ur Squamous Epith Cells (0-4) /hpf Urine Bacteria (None) /hpf Urine Mucus (None) /hpf Urine HCG, Qual Not Detected (Not Detectd) Serum Alcohol mg/dL Disposition Clinical Impression: Chronic pancreatitis, Alcohol abuse, Alcohol intoxication Disposition: HOME SELF-CARE Condition: Stable Instructions (If sedation given, give patient instructions): Pancreatitis (ED) Additional Instructions: Please refrain from any alcohol use. Please return to the Emergency Department if symptoms worsen or any other concerns. Prescriptions: Ketorolac [Toradol] 10 mg PO Q8HR #15 tab Ondansetron Odt [Zofran Odt] 4 mg PO Q8HR PRN #10 tab PRN Reason: Nausea Is patient prescribed a controlled substance at d/c from ED?: No Referrals: Tiara Pollock MD [Primary Care Provider] - 1-2 days Time of Disposition: 08:25
[2024-11-12 07:19] LABS: ALT 28 U/L (4-34); AST 40 U/L (14-36); African American GFR (CKD) >90 (>60 ml/min/1.73 sqM); Albumin 4.9 g/dL (3.5-5.0); Alcohol 75 mg/dL; Alkaline Phosphatase 67 U/L (38-126); Anion Gap 18 mmol/L; Blood Urea Nitrogen 7 mg/dL (7-17); Calcium 10.3 mg/dL (8.4-10.2); Carbon Dioxide 18 mmol/L (22-30); Chloride 106 mmol/L (98-107); Glucose 89 mg/dL (74-99); Lipase 48 U/L (23-300); Magnesium 1.8 mg/dL (1.6-2.3); Non-African American GFR(CKD) >90 (>60 ml/min/1.73 sqM); Potassium 3.8 mmol/L (3.5-5.1); Sodium 142 mmol/L (137-145); Total Bilirubin 0.8 mg/dL (0.2-1.3); Total Protein 8.5 g/dL (6.3-8.2)
[2024-11-12 07:25] LABS: Basophils # (A) 0.04 10*3/uL (0.00-0.10); Basophils % (A) 0.5 %; Eosinophils # (A) 0.54 10*3/uL (0.04-0.35); Eosinophils % (A) 6.7 %; HCT 45.6 % (37.2-46.3); HGB 16.8 g/dL (12.0-15.0); Lymphocytes % (A) 32.4 %; MCH 36.7 pg (27.0-32.0); MCHC 36.8 g/dL (32.0-37.0); Mean Platelet Volume 10.4 fL (9.5-12.2); Monocytes # (A) 0.77 10*3/uL (0.20-1.00); Monocytes % (A) 9.6 %; Neutrophils # (A) 4.04 10*3/uL (1.80-7.70); Neutrophils % (A) 50.4 %; Platelet Count 343 10*3/uL (140-440); RBC 4.58 10*6/uL (4.10-5.20); RDW 13.2 % (11.5-14.5); WBC 8.02 10*3/uL (4.50-10.00)
[2024-11-12 07:28] LABS: MCV 99.6 fL (80.0-97.0)
[2024-11-12] MEDS: KETOROLAC 15 MG/ML 1 ML VIAL IVP STA (07:49)
[2024-11-12] MEDS: HYDROmorphone 1 MG/ML 1 ML SYRINGE IVP STA (07:52)
[2024-11-12 08:02] LABS: Appearance,Urine Cloudy (Clear); Bacteria,Urine Rare /hpf; Bilirubin,Urine Negative (Negative); Blood,Urine Negative (Negative); Color,Urine Yellow; Glucose,Urine (UA) Negative (Negative); Ketones,Urine Negative (Negative); Leukocyte Esterase,Urine Trace (Negative); Mucus,Urine Rare /hpf; Nitrite,Urine Negative (Negative); Protein,Urine Negative (Negative); RBC,Urine 1 /hpf (0-5); Squamous Epithelial Cell,Urine 11 /hpf (0-4); Urobilinogen,Urine <2.0 mg/dL (<2.0); WBC,Urine 1 /hpf (0-5)
[2024-11-12 09:05] VITALS: BP 132/96; PULSE 79; TEMP 97.9
== END 2024-11-12 09:04 | disposition home or self-care (01) ==
LOC: EC 06:34
DX: K86.1 Other chronic pancreatitis (principal); F10.129 Alcohol abuse with intoxication, unspecified; F17.200 Nicotine dependence, unspecified, uncomplicated; Y90.3 Blood alcohol level of 60-79 mg/100 ml
CPT/HCPCS: 36415; 80053; 83690; 83735; 85025; 81001; 81025; 99284; 96374; 96375 ×2; 96361 ×2; G0480; J1171; J1885; J1790; 80320

== ENCOUNTER 2024-11-14 09:07 | Emergency (ER) | payer OTHER ==
[2024-11-14 09:15] VITALS: RESP 18; TEMP 98
[2024-11-14] MEDS: HYDROmorphone 1 MG/ML 1 ML SYRINGE IVP STA (09:36)
[2024-11-14] MEDS: FAMOTIDINE 20 MG/2 ML VIAL IV STA (09:37)
[2024-11-14] MEDS: droPERidol 5 MG/2 ML VIAL IVP ONE ×2 (09:38→12:41)
[2024-11-14] MEDS: SODIUM CHLORIDE 0.9% 1,000 ML IV ONE ×2 (09:39→11:11)
[2024-11-14 09:40] LABS: Basophils # (A) 0.02 10*3/uL (0.00-0.10); Basophils % (A) 0.2 %; Eosinophils # (A) 0.22 10*3/uL (0.04-0.35); Eosinophils % (A) 2.5 %; HCT 44.9 % (37.2-46.3); HGB 16.4 g/dL (12.0-15.0); Lymphocytes # (A) 0.96 10*3/uL (0.90-5.00); Lymphocytes % (A) 10.8 %; MCH 36.4 pg (27.0-32.0); MCHC 36.5 g/dL (32.0-37.0); MCV 99.8 fL (80.0-97.0); Mean Platelet Volume 10.1 fL (9.5-12.2); Monocytes % (A) 5.6 %; Neutrophils # (A) 7.16 10*3/uL (1.80-7.70); Neutrophils % (A) 80.7 %; Platelet Count 252 10*3/uL (140-440); RDW 13.1 % (11.5-14.5); WBC 8.88 10*3/uL (4.50-10.00)
[2024-11-14 09:55] LABS: ALT 19 U/L (4-34); AST 23 U/L (14-36); African American GFR (CKD) >90 (>60 ml/min/1.73 sqM); Albumin 4.4 g/dL (3.5-5.0); Alcohol <10 mg/dL; Alkaline Phosphatase 75 U/L (38-126); Amylase 68 U/L (30-110); Anion Gap 11 mmol/L; Blood Urea Nitrogen 9 mg/dL (7-17); Calcium 10.3 mg/dL (8.4-10.2); Carbon Dioxide 19 mmol/L (22-30); Chloride 109 mmol/L (98-107); Glucose 112 mg/dL (74-99); Lipase 31 U/L (23-300); Magnesium 1.7 mg/dL (1.6-2.3); Non-African American GFR(CKD) >90 (>60 ml/min/1.73 sqM); Potassium 3.7 mmol/L (3.5-5.1); Sodium 139 mmol/L (137-145); Total Bilirubin 1.6 mg/dL (0.2-1.3); Total Protein 7.7 g/dL (6.3-8.2)
--- NOTE | 2024-11-14 10:56 | ED ---
Abdominal Pain HPI - General Chief Complaint: Abdominal Pain Stated Complaint: abd pain Time Seen by Provider: 11/14/24 09:11 Source: patient, RN notes reviewed Mode of arrival: ambulatory Limitations: no limitations - History of Present Illness Initial Comments: 29-year-old female presents emergency department with chief complaint of abdominal pain. Patient states been having increasing abdominal discomfort she has had multiple recent admissions for pancreatitis. Patient presented a few days ago and did have alcohol use on board. Patient states she has not drank since then but is attempted the which made symptoms worse. Patient denies any fevers or chills no chest pain no shortness of breath no dysuria denies any drug use. - Related Data Home Medications Medication Instructions Recorded Confirmed Benzoyl Peroxide Cleanser 10% 1 applic TOPICAL DAILY PRN 11/14/24 11/14/24 Ketorolac [Toradol] 10 mg PO Q8HR PRN 11/14/24 11/14/24 Sulfamethox-Tmp 800-160Mg [Bactrim 1 tab PO Q12HR 11/14/24 11/14/24 DS 800-160 mg] Previous Rx's Medication Instructions Recorded Losartan [Cozaar] 100 mg PO DAILY 30 Days #30 tab 11/03/24 amLODIPine [Norvasc] 10 mg PO DAILY 30 Days #30 tab 11/03/24 hydroCHLOROthiazide [Hydrodiuril] 25 mg PO DAILY 30 Days #30 tab 11/03/24 Ondansetron Odt [Zofran Odt] 4 mg PO Q8HR PRN #10 tab 11/12/24 Allergies Allergy/AdvReac Type Severity Reaction Status Date / Time No Known Allergies Allergy Verified 11/14/24 11:44 Review of Systems ROS Statement: Those systems with pertinent positive or pertinent negative responses have been documented in the HPI. ROS Other: All systems not noted in ROS Statement are negative. Past Medical History Past Medical History: Hypertension, Thyroid Disorder Additional Past Medical History / Comment(s): Hydradenitis suppertiva; Kidney stones, PANCREATITIS History of Any Multi-Drug Resistant Organisms: MRSA Date of last positivie culture/infection: 10/09/24 MDRO Source:: buttock Past Surgical History: No Surgical Hx Reported Additional Past Surgical History / Comment(s): cyst removed from buttocks two y ears ago, cystoscopy with right ureteroscopy and holmium laser lithotripsy on 09/19/2020 Past Anesthesia/Blood Transfusion Reactions: No Reported Reaction Past Psychological History: No Psychological Hx Reported Smoking Status: Current every day smoker Past Alcohol Use History: Heavy Past Drug Use History: Marijuana - Past Family History Mother Family Medical History: No Reported History General Exam Limitations: no limitations General appearance: alert, in no apparent distress Head exam: Present: atraumatic, normocephalic, normal inspection Eye exam: Present: normal appearance, PERRL, EOMI. Absent: scleral icterus, conjunctival injection, periorbital swelling ENT exam: Present: normal exam, normal oropharynx, mucous membranes moist Neck exam: Present: normal inspection, full ROM. Absent: tenderness, meningismus, lymphadenopathy Respiratory exam: Present: normal lung sounds bilaterally. Absent: respiratory distress, wheezes, rales, rhonchi, stridor Cardiovascular Exam: Present: regular rate, normal rhythm, normal heart sounds. Absent: systolic murmur, diastolic murmur, rubs, gallop, clicks GI/Abdominal exam: Present: soft, tenderness, normal bowel sounds. Absent: distended, guarding, rebound, rigid Neurological exam: Present: alert Skin exam: Present: warm, dry, intact, normal color. Absent: rash Course Vital Signs 11/14/24 11/14/24 09:13 12:37 Temperature 98 F Pulse Rate 90 65 Respiratory 18 18 Rate Blood Pressure 146/96 148/99 O2 Sat by Pulse 99 99 Oximetry Medical Decision Making - Medical Decision Making Was pt. sent in by a medical professional or institution (, PA, CONVENTIONAL MACHINIST, urgent care, hospital, or assisted...) When possible be specific @ -No Did you speak to anyone other than the patient for history (EMS, parent, family, police, friend...)? What history was obtained from this source @ -No Did you review nursing and triage notes (agree or disagree)? Why? @ -I reviewed and agree with nursing and triage notes Were old charts reviewed (outside hosp., previous admission, EMS record, old EKG, old radiological studies, urgent care reports/EKG's, assisted records)? Report findings @ -No old charts were reviewed Differential Diagnosis (chest pain, altered mental status, abdominal pain women, abdominal pain men, vaginal bleeding, weakness, fever, dyspnea, syncope, headache, dizziness, GI bleed, back pain, seizure, CVA, palpatations, mental health, musculoskeletal)? @ -Differential Abdominal Pain Women: Appendicitis, Cholecystitis, diverticulosis, ischemic bowel, pancreatitis, hepatitis, UTI, gastroenteritis, AAA, incarcerated hernia, bowel obstruction, constipation, inflammatory bowel, hepatitis, peptic ulcer disease, splenic infarction, perforated viscus, vulvitis, ovarian torsion, PID, kidney stone, placenta abruption, this is not meant to be an all-inclusive list EKG interpreted by me (3pts min.). @ -None X-rays interpreted by me (1pt min.). @ -None done CT interpreted by me (1pt min.). @ -None done U/S interpreted by me (1pt. min.). @ -None done What testing was considered but not performed or refused? (CT, X-rays, U/S, labs)? Why? @ -None What meds were considered but not given or refused? Why? @ -None Did you discuss the management of the patient with other professionals (professionals i.e. , PA, CONVENTIONAL MACHINIST, lab, RT, psych nurse, social economist, farmworker general, teacher, occupational medicine officer, case reviewer)? Give summary @ -No Was smoking cessation discussed for >3mins.? @ -No Was critical care preformed (if so, how long)? @ -No Were there social determinants of health that impacted care today? How? (Homelessness, low income, unemployed, alcoholism, drug addiction, transportation, low edu. Level, literacy, decrease access to med. care, skilled nursing, rehab)? @ -No Was there de-escalation of care discussed even if they declined (Discuss DNR or withdrawal of care, Hospice)? DNR status @ -No What co-morbidities impacted this encounter? (DM, HTN, Smoking, COPD, CAD, Cancer, CVA, ARF, Chemo, Hep., AIDS, mental health diagnosis, sleep apnea, morbid obesity)? @ -Alcohol abuse Was patient admitted / discharged? Hospital course, mention meds given and route, prescriptions, significant lab abnormalities, going to OR and other pertinent info. @ -Discharge patient laboratory studies unremarkable. Patient is acutely intoxicated at this point. Patient's pain is improved there is been no recurrent vomiting. Patient is discharged in stable condition return for as discussed. Undiagnosed new problem with uncertain prognosis? @ -No Drug Therapy requiring intensive monitoring for toxicity (Heparin, Nitro, Insulin, Cardizem)? @ -No Were any procedures done? @ -No Diagnosis/symptom? @ -Abdominal pain Acute, or Chronic, or Acute on Chronic? @ -Acute Uncomplicated (without systemic symptoms) or Complicated (systemic symptoms)? @ -Complicated Side effects of treatment? @ -No Exacerbation, Progression, or Severe Exacerbation? @ -No Poses a threat to life or bodily function? How? (Chest pain, [place], [place], pneumonia, PE, COPD, DKA, ARF, appy, cholecystitis, CVA, Diverticulitis, Homicidal, Suicidal, threat to staff... and all critical care pts) @ -No - Lab Data Result diagrams: 11/14/24 09:31 11/14/24 09:31 Lab Results 11/14/24 11/14/24 11/14/24 Range/Units 09:31 09:31 10:34 WBC 8.88 (4.50-10.00) 10*3/uL RBC 4.50 (4.10-5.20) 10*6/uL Hgb 16.4 H (12.0-15.0) g/dL Hct 44.9 (37.2-46.3) % MCV 99.8 H (80.0-97.0) fL MCH 36.4 H (27.0-32.0) pg MCHC 36.5 (32.0-37.0) g/dL Plt Count 252 (140-440) 10*3/uL MPV 10.1 (9.5-12.2) fL Immature Gran % (Auto) 0.2 % Neutrophils % 80.7 % Lymphocytes % 10.8 % Monocytes % 5.6 % Eosinophils % 2.5 % Basophils % 0.2 % Immature Gran # 0.02 (0.00-0.04) 10*3/uL Neutrophils # 7.16 (1.80-7.70) 10*3/uL Lymphocytes # 0.96 (0.90-5.00) 10*3/uL Monocytes # 0.50 (0.20-1.00) 10*3/uL Eosinophils # 0.22 (0.04-0.35) 10*3/uL Basophils # 0.02 (0.00-0.10) 10*3/uL Sodium 139 (137-145) mmol/L Potassium 3.7 (3.5-5.1) mmol/L Chloride 109 H (98-107) mmol/L Carbon Dioxide 19 L (22-30) mmol/L Anion Gap 11 mmol/L BUN 9 (7-17) mg/dL Creatinine 0.65 (0.52-1.04) mg/dL Est GFR (CKD-EPI)AfAm >90 (>60 ml/min/1.73 sqM) Est GFR (CKD-EPI)NonAf >90 (>60 ml/min/1.73 sqM) Glucose 112 H (74-99) mg/dL Calcium 10.3 H (8.4-10.2) mg/dL Magnesium 1.7 (1.6-2.3) mg/dL Total Bilirubin 1.6 H (0.2-1.3) mg/dL AST 23 (14-36) U/L ALT 19 (4-34) U/L Alkaline Phosphatase 75 (38-126) U/L Total Protein 7.7 (6.3-8.2) g/dL Albumin 4.4 (3.5-5.0) g/dL Amylase 68 (30-110) U/L Lipase 31 (23-300) U/L Urine Color Yellow Urine Appearance Cloudy H (Clear) Urine pH 6.5 (5.0-8.0) Ur Specific [place] 1.030 (1.001-1.035) Urine Protein 1+ H (Negative) Urine Glucose (UA) Negative (Negative) Urine Ketones 2+ H (Negative) Urine Blood Negative (Negative) Urine Nitrite Negative (Negative) Urine Bilirubin 1+ H (Negative) Urine Urobilinogen 3.0 (<2.0) mg/dL Ur Leukocyte Esterase Large H (Negative) Urine RBC 13 H (0-5) /hpf Urine WBC 32 H (0-5) /hpf Ur Squamous Epith Cells 49 H (0-4) /hpf Urine Bacteria Rare H (None) /hpf Urine Mucus Moderate H (None) /hpf Urine HCG, Qual (Not Detectd) Serum Alcohol <10 mg/dL 11/14/24 Range/Units 10:34 WBC (4.50-10.00) 10*3/uL RBC (4.10-5.20) 10*6/uL Hgb (12.0-15.0) g/dL Hct (37.2-46.3) % MCV (80.0-97.0) fL MCH (27.0-32.0) pg MCHC (32.0-37.0) g/dL Plt Count (140-440) 10*3/uL MPV (9.5-12.2) fL Immature Gran % (Auto) % Neutrophils % % Lymphocytes % % Monocytes % % Eosinophils % % Basophils % % Immature Gran # (0.00-0.04) 10*3/uL Neutrophils # (1.80-7.70) 10*3/uL Lymphocytes # (0.90-5.00) 10*3/uL Monocytes # (0.20-1.00) 10*3/uL Eosinophils # (0.04-0.35) 10*3/uL Basophils # (0.00-0.10) 10*3/uL Sodium (137-145) mmol/L Potassium (3.5-5.1) mmol/L Chloride (98-107) mmol/L Carbon Dioxide (22-30) mmol/L Anion Gap mmol/L BUN (7-17) mg/dL Creatinine (0.52-1.04) mg/dL Est GFR (CKD-EPI)AfAm (>60 ml/min/1.73 sqM) Est GFR (CKD-EPI)NonAf (>60 ml/min/1.73 sqM) Glucose (74-99) mg/dL Calcium (8.4-10.2) mg/dL Magnesium (1.6-2.3) mg/dL Total Bilirubin (0.2-1.3) mg/dL AST (14-36) U/L ALT (4-34) U/L Alkaline Phosphatase (38-126) U/L Total Protein (6.3-8.2) g/dL Albumin (3.5-5.0) g/dL Amylase (30-110) U/L Lipase (23-300) U/L Urine Color Urine Appearance (Clear) Urine pH (5.0-8.0) Ur Specific [place] (1.001-1.035) Urine Protein (Negative) Urine Glucose (UA) (Negative) Urine Ketones (Negative) Urine Blood (Negative) Urine Nitrite (Negative) Urine Bilirubin (Negative) Urine Urobilinogen (<2.0) mg/dL Ur Leukocyte Esterase (Negative) Urine RBC (0-5) /hpf Urine WBC (0-5) /hpf Ur Squamous Epith Cells (0-4) /hpf Urine Bacteria (None) /hpf Urine Mucus (None) /hpf Urine HCG, Qual Not Detected (Not Detectd) Serum Alcohol mg/dL Disposition Clinical Impression: Chronic pancreatitis, Abdominal pain Disposition: HOME SELF-CARE Condition: Stable Instructions (If sedation given, give patient instructions): Abdominal Pain (ED) Additional Instructions: Please return to the Emergency Department if symptoms worsen or any other concerns. Is patient prescribed a controlled substance at d/c from ED?: No Referrals: Tiara Pollock MD [Primary Care Provider] - 1-2 days Forms: AA Meetings [facility] Time of Disposition: 13:17
[2024-11-14 11:47] LABS: Appearance,Urine Cloudy (Clear); Bacteria,Urine Rare /hpf; Bilirubin,Urine 1+ (Negative); Blood,Urine Negative (Negative); Color,Urine Yellow; Glucose,Urine (UA) Negative (Negative); Ketones,Urine 2+ (Negative); Leukocyte Esterase,Urine Large (Negative); Mucus,Urine Moderate /hpf; Nitrite,Urine Negative (Negative); PH, Urine 6.5 (5.0-8.0); Protein,Urine 1+ (Negative); RBC,Urine 13 /hpf (0-5); Squamous Epithelial Cell,Urine 49 /hpf (0-4); WBC,Urine 32 /hpf (0-5)
[2024-11-14] MEDS: HYDROmorphone 0.5 MG/0.5 ML SYRINGE IVP STA (12:38)
[2024-11-14] MEDS: KETOROLAC 15 MG/ML 1 ML VIAL IVP STA (12:39)
[2024-11-14] MEDS: ACET/COD 300 MG/30 MG STARTER PACK 6 TAB BTL PO STA (13:24)
[2024-11-14 13:28] VITALS: BP 138/94; PULSE 60
== END 2024-11-14 13:32 | disposition home or self-care (01) ==
LOC: EC 09:07
DX: K86.1 Other chronic pancreatitis (principal); F10.10 Alcohol abuse, uncomplicated; F17.200 Nicotine dependence, unspecified, uncomplicated; Y90.0 Blood alcohol level of less than 20 mg/100 ml
CPT/HCPCS: 99284; 96374; 96375; 96376 ×2; 96361; 36415; 80053; 82150; 83690; 83735; 85025; 81001; 81025; 87086; G0480; J1171 ×2; J1885; J1790; J1308; 80320

== ENCOUNTER 2024-11-22 16:07 | Inpatient (IN) | payer OTHER ==
[2024-11-22 16:53] LABS: ALT 17 U/L (4-34); AST 32 U/L (14-36); African American GFR (CKD) >90 (>60 ml/min/1.73 sqM); Albumin 5.2 g/dL (3.5-5.0); Alkaline Phosphatase 79 U/L (38-126); Anion Gap 17 mmol/L; Blood Urea Nitrogen 12 mg/dL (7-17); Calcium 10.6 mg/dL (8.4-10.2); Carbon Dioxide 21 mmol/L (22-30); Chloride 101 mmol/L (98-107); Glucose 116 mg/dL (74-99); Non-African American GFR(CKD) >90 (>60 ml/min/1.73 sqM); Potassium 3.7 mmol/L (3.5-5.1); Sodium 139 mmol/L (137-145); Total Bilirubin 1.4 mg/dL (0.2-1.3); Total Protein 8.8 g/dL (6.3-8.2)
[2024-11-22] MEDS: HYDROmorphone 1 MG/ML 1 ML SYRINGE IVP STA ×2 (16:53→17:41)
[2024-11-22] MEDS: SODIUM CHLORIDE 0.9% 1,000 ML IV STA (16:53)
--- NOTE | 2024-11-22 16:54 | ED ---
General Adult HPI - General Chief complaint: Abdominal Pain Stated complaint: ABD Pain Time Seen by Provider: 11/22/24 16:13 Source: patient Mode of arrival: ambulatory Limitations: no limitations - History of Present Illness Initial comments: Dictation was produced using buuteeq dictation software. please excuse any grammatical, word or spelling errors. Chief Complaint: 29-year-old female with history of pancreatitis and hidradenitis presents to the ER with abdominal pain History of Present Illness: Patient is 29-year-old female has 1 day of abdominal pain states that she has epigastric pain that radiates to her back describes it as sharp and reminiscent of pancreatitis that she has been diagnosed within the past. Denies any history of cholecystectomy. Patient states that she has pancreatitis secondary to drinking. The ROS documented in this emergency department record has been reviewed and confirmed by me. Those systems with pertinent positive or negative responses have been documented in the HPI. All other systems are other negative and/or noncontributory. - Related Data Home Medications Medication Instructions Recorded Confirmed Benzoyl Peroxide Cleanser 10% 1 applic TOPICAL DAILY PRN 11/14/24 11/14/24 Ketorolac [Toradol] 10 mg PO Q8HR PRN 11/14/24 11/14/24 Sulfamethox-Tmp 800-160Mg [Bactrim 1 tab PO Q12HR 11/14/24 11/14/24 DS 800-160 mg] Previous Rx's Medication Instructions Recorded Losartan [Cozaar] 100 mg PO DAILY 30 Days #30 tab 11/03/24 amLODIPine [Norvasc] 10 mg PO DAILY 30 Days #30 tab 11/03/24 hydroCHLOROthiazide [Hydrodiuril] 25 mg PO DAILY 30 Days #30 tab 11/03/24 Ondansetron Odt [Zofran Odt] 4 mg PO Q8HR PRN #10 tab 11/12/24 Allergies Allergy/AdvReac Type Severity Reaction Status Date / Time No Known Allergies Allergy Verified 11/22/24 16:12 Review of Systems ROS Statement: Those systems with pertinent positive or pertinent negative responses have been documented in the HPI. ROS Other: All systems not noted in ROS Statement are negative. Past Medical History Past Medical History: Hypertension, Thyroid Disorder Additional Past Medical History / Comment(s): Hydradenitis suppertiva; Kidney stones, PANCREATITIS History of Any Multi-Drug Resistant Organisms: MRSA Date of last positivie culture/infection: 10/09/24 MDRO Source:: buttock Past Surgical History: No Surgical Hx Reported Additional Past Surgical History / Comment(s): cyst removed from buttocks two years ago, cystoscopy with right ureteroscopy and holmium laser lithotripsy on 09/19/2020 Past Anesthesia/Blood Transfusion Reactions: No Reported Reaction Past Psychological History: No Psychological Hx Reported Smoking Status: Current every day smoker Past Alcohol Use History: Heavy Past Drug Use History: Marijuana - Past Family History Mother Family Medical History: No Reported History General Exam - General Exam Comments Initial Comments: PHYSICAL EXAM: General Impression: Alert and oriented x3, acute distress secondary to pain HEENT: Normocephalic atraumatic, extra-ocular movements intact, pupils equal and reactive to light bilaterally, mucous membranes moist. Cardiovascular: Heart regular rate and rhythm Chest: Able to complete full sentences, no retractions, no tachypnea Abdomen: abdomen soft, epigastric palpatory tenderness, non-distended, no organomegaly Musculoskeletal: Pulses present and equal in all extremities, no peripheral edema Motor: no focal deficits noted Neurological: CN II-XII grossly intact, no focal motor or sensory deficits noted Skin: Intact with no visualized rashes Psych: Normal affect and mood Limitations: no limitations Course Vital Signs 11/22/24 11/22/24 16:08 18:09 Temperature 98.6 F 97.6 F Pulse Rate 131 H 80 Respiratory 24 18 Rate Blood Pressure 168/105 133/88 O2 Sat by Pulse 98 98 Oximetry Medical Decision Making - Medical Decision Making Was pt. sent in by a medical professional or institution (, PA, OVERLOCK SEWING MACHINE OPERATOR, urgent care, hospital, or residential...) When possible be specific @ -No Did you speak to anyone other than the patient for history (EMS, parent, family, police, friend...)? What history was obtained from this source @ -No Did you review nursing and triage notes (agree or disagree)? Why? @ -I reviewed and agree with nursing and triage notes Were old charts reviewed (outside hosp., previous admission, EMS record, old EKG, old radiological studies, urgent care reports/EKG's, residential records)? Report findings @ -No old charts were reviewed Differential Diagnosis (chest pain, altered mental status, abdominal pain women, abdominal pain men, vaginal bleeding, musculoskeletal, weakness, fever, dyspnea, syncope, headache, dizziness, GI bleed, back pain, seizure, CVA, palpatations, mental health)? @ -Differential Abdominal Pain Women: Appendicitis, Cholecystitis, diverticulosis, ischemic bowel, pancreatitis, hepatitis, UTI, gastroenteritis, AAA, incarcerated hernia, bowel obstruction, constipation, inflammatory bowel, hepatitis, peptic ulcer disease, splenic infarction, perforated viscus, vulvitis, ovarian torsion, PID, kidney stone, placenta abruption, this is not meant to be an all-inclusive list EKG interpreted by me (3pts min.). @ -None done X-rays interpreted by me (1pt min.). @ -None done CT interpreted by me (1pt min.). @ -None done U/S interpreted by me (1pt. min.). @ -None done What testing was considered but not performed or refused? (CT, X-rays, U/S, labs)? Why? @ -None What meds were considered but not given or refused? Why? @ -None Was smoking cessation discussed for >3mins.? @ -No Were there social determinants of health that impacted care today? How? (Homelessness, low income, unemployed, alcoholism, drug addiction, transportation, low edu. Level, literacy, decrease access to med. care, penitentiary, rehab)? @ -No Was there de-escalation of care discussed even if they declined (Discuss DNR or withdrawal of care, Hospice)? DNR status @ -No What co-morbidities impacted this encounter? (DM, HTN, Smoking, COPD, CAD, Cancer, CVA, ARF, Chemo, Hep., AIDS, mental health diagnosis, sleep apnea, morbid obesity)? @ -Pancreatitis Was patient admitted / discharged? Hospital course, mention meds given and route, prescriptions, significant lab abnormalities, going to OR and other pertinent info. @ -29-year-old female presents with intractable abdominal pain. She has longstanding history of pancreatitis has had multiple scans over the last several visits. Vital signs upon arrival are within acceptable limits. Patient has tender abdomen. Given that patient has extensive history of recurrent pancreatitis concerned that patient has another episode of pancreatitis. Labs otherwise negative. CT not performed due to reduction in radiation exposure. Patient given multiple analgesics with still persistent pain. Will be admitted for intractable abdominal pain. General surgery consulted. Case discussed with hospitalist for admission Did you discuss the management of the patient with other professionals (prof yeboah i.e. , PA, OVERLOCK SEWING MACHINE OPERATOR, lab, RT, psych nurse, nursing home social worker, vamp liner, teacher, corporate officer, rifle case repairer)? Give summary @ -See above Was critical care preformed (if so, how long)? @ -No Undiagnosed new problem with uncertain prognosis? @ -No Drug Therapy requiring intensive monitoring for toxicity (Heparin, Nitro, Insulin, Cardizem)? @ -No Were any procedures done? @ -No Diagnosis/symptom? Acute, or Chronic, or Acute on Chronic? Uncomplicated (without systemic symptoms) or Complicated (systemic symptoms)? @ -Intractable abdominal pain, likely recurrent pancreatitis Side effects of treatment? @ -No Exacerbation, Progression, or Severe Exacerbation? @ -No Poses a threat to life or bodily function? How? (Chest pain, USA, NV, pneumonia, PE, COPD, DKA, ARF, appy, cholecystitis, CVA, Diverticulitis, Homicidal, Suicidal, threat to staff... and all critical care pts) @ -yes - Lab Data Result diagrams: 11/22/24 16:29 11/22/24 16:29 Lab Results 11/22/24 11/22/24 11/22/24 Range/Units 16:29 16:29 16:29 WBC 9.16 (4.50-10.00) 10*3/uL RBC 4.99 (4.10-5.20) 10*6/uL Hgb 18.1 H (12.0-15.0) g/dL Hct 48.6 H (37.2-46.3) % MCV 97.4 H (80.0-97.0) fL MCH 36.3 H (27.0-32.0) pg MCHC 37.2 H (32.0-37.0) g/dL Plt Count 222 (140-440) 10*3/uL MPV 10.3 (9.5-12.2) fL Immature Gran % (Auto) 0.3 % Neutrophils % 67.7 % Lymphocytes % 21.2 % Monocytes % 7.2 % Eosinophils % 3.3 % Basophils % 0.3 % Immature Gran # 0.03 (0.00-0.04) 10*3/uL Neutrophils # 6.20 (1.80-7.70) 10*3/uL Lymphocytes # 1.94 (0.90-5.00) 10*3/uL Monocytes # 0.66 (0.20-1.00) 10*3/uL Eosinophils # 0.30 (0.04-0.35) 10*3/uL Basophils # 0.03 (0.00-0.10) 10*3/uL Sodium 139 (137-145) mmol/L Potassium 3.7 (3.5-5.1) mmol/L Chloride 101 (98-107) mmol/L Carbon Dioxide 21 L (22-30) mmol/L Anion Gap 17 mmol/L BUN 12 (7-17) mg/dL Creatinine 0.81 (0.52-1.04) mg/dL Est GFR (CKD-EPI)AfAm >90 (>60 ml/min/1.73 sqM) Est GFR (CKD-EPI)NonAf >90 (>60 ml/min/1.73 sqM) Glucose 116 H (74-99) mg/dL Calcium 10.6 H (8.4-10.2) mg/dL Total Bilirubin 1.4 H (0.2-1.3) mg/dL AST 32 (14-36) U/L ALT 17 (4-34) U/L Alkaline Phosphatase 79 (38-126) U/L Total Protein 8.8 H (6.3-8.2) g/dL Albumin 5.2 H (3.5-5.0) g/dL Lipase 56 (23-300) U/L Disposition Clinical Impression: Intractable abdominal pain Disposition: ADMITTED IP TO THIS [facility] Condition: Fair Referrals: Tiara Pollock MD [Primary Care Provider] - 1-2 days Decision Time: 19:24
[2024-11-22 17:02] LABS: Basophils # (A) 0.03 10*3/uL (0.00-0.10); Basophils % (A) 0.3 %; Eosinophils % (A) 3.3 %; HCT 48.6 % (37.2-46.3); HGB 18.1 g/dL (12.0-15.0); Lymphocytes # (A) 1.94 10*3/uL (0.90-5.00); Lymphocytes % (A) 21.2 %; MCH 36.3 pg (27.0-32.0); MCHC 37.2 g/dL (32.0-37.0); MCV 97.4 fL (80.0-97.0); Mean Platelet Volume 10.3 fL (9.5-12.2); Monocytes # (A) 0.66 10*3/uL (0.20-1.00); Monocytes % (A) 7.2 %; Neutrophils % (A) 67.7 %; Platelet Count 222 10*3/uL (140-440); RBC 4.99 10*6/uL (4.10-5.20); RDW 13.3 % (11.5-14.5); WBC 9.16 10*3/uL (4.50-10.00)
[2024-11-22] MEDS: ONDANSETRON 4 MG/2 ML VIAL IVP STA (17:39)
[2024-11-22] MEDS ORDERED: ACETAMINOPHEN TAB 325 MG TAB PO PRN (19:22)
[2024-11-22] MEDS ORDERED: NALOXONE 0.4 MG/ML 1 ML VIAL IV PRN (19:22)
[2024-11-22] MEDS: SODIUM CHLORIDE 0.9% 1,000 ML IV SCH (19:29)
[2024-11-22] MEDS: HYDROmorphone 1 MG/ML 1 ML SYRINGE IVP PRN (19:57)
[2024-11-23] MEDS: PROCHLORPERAZINE INJ 10 MG/2 ML VIAL IVP PRN (00:11)
[2024-11-23] MEDS: hydrALAZINE HCL 20 MG/ML 1 ML VIAL IVP PRN (00:11)
[2024-11-23] MEDS: HYDROmorphone 2 MG/ML 1 ML SYRINGE IVP PRN (02:04)
[2024-11-23] MEDS: amLODIPine 10 MG TAB PO SCH (08:35)
[2024-11-23] MEDS: hydroCHLOROthiazide 25 MG TAB PO SCH (08:35)
[2024-11-23] MEDS: PANTOPRAZOLE 40 MG TABLET PO SCH (08:35)
--- NOTE | 2024-11-23 14:29 | P.GSCN ---
History of Present Illness Consult date: 11/23/24 History of present illness: CHIEF COMPLAINT: Abdominal pain HISTORY OF PRESENT ILLNESS: This is a 29-year-old female with a known history of alcohol induced pancreatitis. She had multiple hospitalizations within the last 2 months for her pancreatitis. She has had 5 abdominal CAT scans within the last 2 months regarding her pancreatitis. Her CAT scan in October 31, 2024 had reported necrotizing pancreatitis and then the last CAT scan on November 07 had reported mild uncomplicated pancreatitis. Patient reports that she did drink alcohol 2 days ago with her friends. And since then she started having epigastric pain that radiated to her back again. She came into the ER for evaluation and is being treated for acute pancreatitis. No imaging was completed done in ER due to the multiple recent CAT scans. Patient has history of cholecystectomy. PAST MEDICAL HISTORY: Alcohol induced pancreatitis, hypertension, thyroid disorder, hidradenitis suppurativa, kidney stones PAST SURGICAL HISTORY: Cholecystectomy, cystoscopy with right ureteroscopy and holmium laser lithotripsy on 09/19/2020 MEDICATIONS: See below ALLERGIES: See below SOCIAL HISTORY: No illicit drug use. REVIEW OF SYSTEMS: CONSTITUTIONAL: Denies fever or chills. HEENT: Denies blurred vision, vision changes, or eye pain. Denies hemoptysis CARDIOVASCULAR: Denies chest pain or pressure. RESPIRATORY: No shortness of breath. GASTROINTESTINAL: See HPI for pertinent findings HEMATOLOGIC: Denies bleeding disorders. GENITOURINARY: Denies any blood in urine or increased urinary frequency. SKIN: Denies pruitis. Denies rash. PHYSICAL EXAM: VITAL SIGNS: Reviewed GENERAL: Well-developed in no acute distress. HEENT: No sclera icterus. Extraocular movements grossly intact. Moist buccal mucosa. Head is atraumatic, normocephalic. No nasal drainage. ABDOMEN: Soft. Nondistended. Tenderness palpation epigastric area NEUROLOGIC: Alert and oriented. Cranial nerves II through XII grossly intact. LABORATORY DATA: WBC 9.16 Hgb 18.1 platelets 222 Sodium 139 potassium is 3.7 creatinine 0.81 Total bilirubin 1.4 AST 32 ALT 17 alk phos 79 lipase 56 IMAGING: ASSESSMENT: 1. Epigastric abdominal pain likely secondary to acute alcohol-induced pancreatitis 2. History of cholecystectomy PLAN: - If patient continues to have abdominal pain tomorrow will check CT scan abdomen to evaluate for development of pseudocyst - Recommend GI consult. Unfortunately GI service not available today. Would recommend that patient follows with GI service outpatient - Educated patient on refraining from alcohol use - Keep patient n.p.o. - Continue IV fluids - Continue pain management Physician Desk Pens Assembler note has been reviewed by physician. Signing provider agrees with the documented findings, assessment, and plan of care. Past Medical History Past Medical History: Hypertension, Thyroid Disorder Additional Past Medical History / Comment(s): Hydradenitis suppertiva; Kidney stones, PANCREATITIS History of Any Multi-Drug Resistant Organisms: MRSA Year Discovered:: 10/09/24 MDRO Source:: buttock Past Surgical History: No Surgical Hx Reported Additional Past Surgical History / Comment(s): cyst removed from buttocks two years ago, cystoscopy with right ureteroscopy and holmium laser lithotripsy on 09/19/2020 Past Anesthesia/Blood Transfusion Reactions: No Reported Reaction Past Psychological History: No Psychological Hx Reported Smoking Status: Current every day smoker Past Alcohol Use History: Heavy Additional Past Alcohol Use History / Comment(s): Patient reports she has not drank alcohol since 10-15-24. Past Drug Use History: Marijuana Additional Drug Use History / Comment(s): . - Past Family History Mother Family Medical History: No Reported History Medications and Allergies Home Medications Medication Instructions Recorded Confirmed Type amLODIPine [Norvasc] 10 mg PO DAILY 30 Days #30 tab 11/03/24 11/22/24 Rx hydroCHLOROthiazide [Hydrodiuril] 25 mg PO DAILY 30 Days #30 tab 11/03/24 11/22/24 Rx Ondansetron Odt [Zofran Odt] 4 mg PO Q8HR PRN #10 tab 11/12/24 11/22/24 Rx Benzoyl Peroxide Cleanser 10% 1 applic TOPICAL DAILY PRN 11/14/24 11/22/24 History Pantoprazole Sodium [Protonix] 20 mg PO BID-W/MEALS 11/22/24 11/22/24 History Allergies Allergy/AdvReac Type Severity Reaction Status Date / Time No Known Allergies Allergy Verified 11/22/24 20:30 Surgical - Exam Vital Signs Temp Pulse Resp BP Pulse Ox 98.6 F 131 H 24 168/105 98 11/22/24 16:08 11/22/24 16:08 11/22/24 16:08 11/22/24 16:08 11/22/24 16:08 Results - Labs 11/22/24 16:29 11/22/24 16:29 Abnormal Lab Results - Last 24 Hours (Table) 11/22/24 11/22/24 Range/Units 16:29 16:29 Hgb 18.1 H (12.0-15.0) g/dL Hct 48.6 H (37.2-46.3) % MCV 97.4 H (80.0-97.0) fL MCH 36.3 H (27.0-32.0) pg MCHC 37.2 H (32.0-37.0) g/dL Carbon Dioxide 21 L (22-30) mmol/L Glucose 116 H (74-99) mg/dL Calcium 10.6 H (8.4-10.2) mg/dL Total Bilirubin 1.4 H (0.2-1.3) mg/dL Total Protein 8.8 H (6.3-8.2) g/dL Albumin 5.2 H (3.5-5.0) g/dL Diabetes panel 11/22/24 Range/Units 16:29 Sodium 139 (137-145) mmol/L Potassium 3.7 (3.5-5.1) mmol/L Chloride 101 (98-107) mmol/L Carbon Dioxide 21 L (22-30) mmol/L BUN 12 (7-17) mg/dL Creatinine 0.81 (0.52-1.04) mg/dL Glucose 116 H (74-99) mg/dL Calcium 10.6 H (8.4-10.2) mg/dL AST 32 (14-36) U/L ALT 17 (4-34) U/L Alkaline Phosphatase 79 (38-126) U/L Total Protein 8.8 H (6.3-8.2) g/dL Albumin 5.2 H (3.5-5.0) g/dL Calcium panel 11/22/24 Range/Units 16:29 Calcium 10.6 H (8.4-10.2) mg/dL Albumin 5.2 H (3.5-5.0) g/dL Pituitary panel 11/22/24 Range/Units 16:29 Sodium 139 (137-145) mmol/L Potassium 3.7 (3.5-5.1) mmol/L Chloride 101 (98-107) mmol/L Carbon Dioxide 21 L (22-30) mmol/L BUN 12 (7-17) mg/dL Creatinine 0.81 (0.52-1.04) mg/dL Glucose 116 H (74-99) mg/dL Calcium 10.6 H (8.4-10.2) mg/dL Adrenal panel 11/22/24 Range/Units 16:29 Sodium 139 (137-145) mmol/L Potassium 3.7 (3.5-5.1) mmol/L Chloride 101 (98-107) mmol/L Carbon Dioxide 21 L (22-30) mmol/L BUN 12 (7-17) mg/dL Creatinine 0.81 (0.52-1.04) mg/dL Glucose 116 H (74-99) mg/dL Calcium 10.6 H (8.4-10.2) mg/dL Total Bilirubin 1.4 H (0.2-1.3) mg/dL AST 32 (14-36) U/L ALT 17 (4-34) U/L Alkaline Phosphatase 79 (38-126) U/L Total Protein 8.8 H (6.3-8.2) g/dL Albumin 5.2 H (3.5-5.0) g/dL
[2024-11-23] MEDS: ONDANSETRON 4 MG/2 ML VIAL IVP PRN (18:12)
[2024-11-24] MEDS ORDERED: hydroCHLOROthiazide 25 MG TAB PO SCH (09:00)
[2024-11-24 09:47] LABS: Basophils # (A) 0.03 X 10*3/uL (0.00-0.10); Basophils % (A) 0.4 %; Eosinophils # (A) 0.31 X 10*3/uL (0.04-0.35); Eosinophils % (A) 3.9 %; HCT 47.7 % (37.2-46.3); HGB 16.8 g/dL (12.0-15.0); Lymphocytes # (A) 1.87 X 10*3/uL (0.90-5.00); Lymphocytes % (A) 23.7 %; MCH 35.2 pg (27.0-32.0); MCHC 35.2 g/dL (32.0-37.0); Mean Platelet Volume 10.8 FL (9.5-12.2); Monocytes # (A) 0.59 X 10*3/uL (0.20-1.00); Monocytes % (A) 7.5 %; NRBC Per 100 WBC 0 X 10*3/uL (0.00-0.01); Neutrophils # (A) 5.07 X 10*3/uL (1.80-7.70); Neutrophils % (A) 64.4 %; Platelet Count 195 X 10*3/uL (140-440); RBC 4.77 X 10*6/uL (4.10-5.20); RDW 13.1 % (11.5-14.5); WBC 7.88 X 10*3/uL (4.50-10.00)
[2024-11-24 13:44] LABS: BUN/Creat Ratio 7.29 Ratio (12.00-20.00); Blood Urea Nitrogen 5.1 mg/dL (9.0-27.0); Calcium 9.6 mg/dL (8.7-10.3); Chloride 101 mmol/L (96-109); Glucose 79 mg/dL (70-110); Potassium 3.7 mmol/L (3.5-5.5); Sodium 138 mmol/L (135-145)
[2024-11-24] MEDS ORDERED: IOPAMIDOL CONTRAST (ORAL USE) VIAL PO PRN (15:04)
--- NOTE | 2024-11-24 16:57 | P.PN ---
Subjective Progress Note Date: 11/24/24 Patient is resting comfortably in her bed. She states her pain is improved compared to yesterday. On exam vital signs appear stable. Abdomen is soft there is some mild epigastric tenderness. Resolving chronic pancreatitis. Patient is at risk for forming pseudocyst. She will continue receive supportive care. Objective - Vital Signs Vital signs: Vital Signs Temp 98.2 F 11/24/24 15:58 Pulse 93 11/24/24 14:00 Resp 17 11/24/24 14:00 BP 132/81 11/24/24 14:00 Pulse Ox 100 11/24/24 14:00 FiO2 Intake & Output 11/23/24 11/24/24 11/24/24 18:59 06:59 18:59 Other: Voiding Method Toilet # Voids 1 7 5 - Labs CBC & Chem 7: 11/24/24 05:10 11/24/24 05:10 Labs: Abnormal Lab Results - Last 24 Hours (Table) 11/24/24 11/24/24 Range/Units 05:10 05:10 Hgb 16.8 H (12.0-15.0) g/dL Hct 47.7 H (37.2-46.3) % MCV 100.0 H (80.0-97.0) FL MCH 35.2 H (27.0-32.0) pg Carbon Dioxide 17.0 L (21.6-31.8) mmol/L Anion Gap 20.00 H (4.00-12.00) mmol/L BUN 5.1 L (9.0-27.0) mg/dL BUN/Creatinine Ratio 7.29 L (12.00-20.00) Ratio
--- NOTE | 2024-11-24 17:23 | CT ---
EXAMINATION TYPE: CT abdomen wo/w con DATE OF EXAM: 11/24/2024 5:16 PM COMPARISON: 11/07/2024 CLINICAL INDICATION: Female, 29 years old with history of abdominal pain, upper abdominal pain. prior on pacs TECHNIQUE:CT scan of the abdomen is performed without Oral Contrast and without and with IV Contrast, patient injected with 80ml mL of Isovue 300. CT DLP: 1544.4 mGycm, Automated exposure control for dose reduction was used. FINDINGS: LUNG BASES-: No visible nodule. No infiltrate. LIVER/GB: No calcified gallstones. No space occupying hepatic lesion. Biliary tree is of normal ca liber. PANCREAS: Persistent unchanged edema and inflammatory change involving the pancreatic tail and distal body compatible with uncomplicated pancreatitis. SPLEEN: No splenic enlargement. No lesion seen. ADRENALS: No nodule. No thickening. KIDNEYS/BLADDER: No hydronephrosis. No nephrolithiasis. No distinct renal mass. Urinary bladder g rossly unremarkable. BOWEL: Normal appendix. Normal bowel caliber. No inflammation. GENITAL ORGANS: No gross abnormality. LYMPH NODES: No greater than 1cm abdominal or pelvic lymph nodes are appreciated. AORTA: No significant abnormality. OSSEOUS STRUCTURES: No significant abnormality is seen. OTHER: No significant additional abnormality is seen. IMPRESSION: 1. Persistent unchanged edema and inflammatory change involving the pancreatic tail and distal body c ompatible with uncomplicated pancreatitis. [facility], , 11/24/2024 5:20 PM
[2024-11-24] MEDS: PANTOPRAZOLE 40 MG/10 ML VIAL IVP SCH (22:02)
--- NOTE | 2024-11-25 10:31 | P.PN ---
Subjective Progress Note Date: 11/25/24 Patient states her pain is mildly improved. Patient had exacerbation of pain last night. Her CT scan shows mild uncomplicated diverticulitis without evidence of pseudocyst. On exam vital signs appear stable. Abdomen soft. Chronic pancreatitis related to alcohol abuse. Patient will continue receive s upportive care. She will need to sustain from alcohol in the future. Objective - Vital Signs Vital signs: Vital Signs Temp 98.5 F 11/25/24 06:58 Pulse 87 11/25/24 06:58 Resp 15 11/25/24 06:58 BP 146/83 11/25/24 06:58 Pulse Ox 100 11/25/24 06:58 FiO2 Intake & Output 11/24/24 11/25/24 11/25/24 18:59 06:59 18:59 Intake Total 1560 Balance 1560 Intake: Intake, IV Titration 1560 Amount Sodium Chloride 0.9% 1, 1560 000 ml @ 130 mls/hr IV . Q7H42M [facility] Rx#:[id number] Oral 0 Other: Voiding Method Toilet # Voids 5 - Labs CBC & Chem 7: 11/24/24 05:10 11/24/24 05:10 Labs: Abnormal Lab Results - Last 24 Hours (Table) 11/24/24 Range/Units 05:10 Carbon Dioxide 17.0 L (21.6-31.8) mmol/L Anion Gap 20.00 H (4.00-12.00) mmol/L BUN 5.1 L (9.0-27.0) mg/dL BUN/Creatinine Ratio 7.29 L (12.00-20.00) Ratio
--- NOTE | 2024-11-25 21:00 | P.HPIM ---
History of Present Illness H&P Date: 11/23/24 Chief Complaint: Abdominal pain 29-year-old female, hypertension, chronic pancreatitis, has 1 day of abdominal pain states that she has epigastric pain that radiates to her back describes it as sharp and reminiscent of pancreatitis that she has been diagnosed within the past. Denies any history of cholecystectomy. Patient states that she has pancreatitis secondary to drinking. Blood work completed in ED reveals a WBC of 9.16, hemoglobin of 18.5 and platelet count of 222, sodium 139, potassium 3.7, BUN/creatinine of 12/0.81, calcium 10.6, total bilirubin elevated at 1.4 and lipase of 56 -CT of the chest reveals inflammatory changes involving pancreatic tail and distal body compatible with uncomplicated pancreatitis - Patient is placed on IV hydration and is admitted for further surgical evaluation Review of Systems REVIEW OF SYSTEMS: CONSTITUTIONAL: No fever, no malaise, no fatigue. HEENT: No recent visual problems or hearing problems. Denied any sore throat. CARDIOVASCULAR: No chest pain, orthopnea, PND, no palpitations, no syncope. PULMONARY: No shortness of breath, no cough, no hemoptysis. GASTROINTESTINAL: No diarrhea, no nausea, no vomiting, no abdominal pain. NEUROLOGICAL: No headaches, no weakness, no numbness. HEMATOLOGICAL: Denies any bleeding or petechiae. GENITOURINARY: Denies any burning micturition, frequency, or urgency. MUSCULOSKELETAL/RHEUMATOLOGICAL: Denies any joint pain, swelling, or any muscle pain. ENDOCRINE: Denies any polyuria or polydipsia. The rest of the 14-point review of systems is negative. Past Medical History Past Medical History: Hypertension, Thyroid Disorder Additional Past Medical History / Comment(s): Hydradenitis suppertiva; Kidney stones, PANCREATITIS History of Any Multi-Drug Resistant Organisms: MRSA Date of last positivie culture/infection: 10/09/24 MDRO Source:: buttock Past Surgical History: No Surgical Hx Reported Additional Past Surgical History / Comment(s): cyst removed from buttocks two years ago, cystoscopy with right ureteroscopy and holmium laser lithotripsy on 09/19/2020 Past Anesthesia/Blood Transfusion Reactions: No Reported Reaction Past Psychological History: No Psychological Hx Reported Smoking Status: Current every day smoker Past Alcohol Use History: Heavy Additional Past Alcohol Use History / Comment(s): Patient reports she has not drank alcohol since 10-15-24. Past Drug Use History: Marijuana Additional Drug Use History / Comment(s): . - Past Family History Mother Family Medical History: No Reported History Medications and Allergies Home Medications Medication Instructions Recorded Confirmed Type amLODIPine [Norvasc] 10 mg PO DAILY 30 Days #30 tab 11/03/24 11/22/24 Rx hydroCHLOROthiazide [Hydrodiuril] 25 mg PO DAILY 30 Days #30 tab 11/03/24 11/22/24 Rx Ondansetron Odt [Zofran Odt] 4 mg PO Q8HR PRN #10 tab 11/12/24 11/22/24 Rx Benzoyl Peroxide Cleanser 10% 1 applic TOPICAL DAILY PRN 11/14/24 11/22/24 History Pantoprazole Sodium [Protonix] 20 mg PO BID-W/MEALS 11/22/24 11/22/24 History Allergies Allergy/AdvReac Type Severity Reaction Status Date / Time No Known Allergies Allergy Verified 11/22/24 20:30 Physical Exam Vitals: Vital Signs Temp Pulse Pulse Resp BP BP Pulse Ox 11/23/24 06:45 98.0 F 62 16 133/91 99 11/23/24 00:39 97.9 F 85 18 134/80 99 11/22/24 23:16 98.2 F 109 H 20 150/102 98 11/22/24 23:07 96 20 131/102 99 11/22/24 22:00 97 20 135/102 99 11/22/24 20:00 98 F 104 H 22 146/100 99 11/22/24 18:09 97.6 F 80 18 133/88 98 11/22/24 16:08 98.6 F 131 H 24 168/105 98 Intake and Output 11/22/24 11/23/24 11/23/24 22:59 06:59 14:59 Output Total 300 Balance -300 Output: Urine 300 Other: # Voids 1 Weight 89.811 kg 89.811 kg General Impression: Alert and oriented x3, acute distress secondary to pain HEENT: Normocephalic atraumatic, extra-ocular movements intact, pupils equal and reactive to light bilaterally, mucous membranes moist. Cardiovascular: Heart regular rate and rhythm Chest: Able to complete full sentences, no retractions, no tachypnea Abdomen: abdomen soft, epigastric palpatory tenderness, non-distended, no organomegaly Musculoskeletal: Pulses present and equal in all extremities, no peripheral edema Motor: no focal deficits noted Neurological: CN II-XII grossly intact, no focal motor or sensory deficits noted Skin: Intact with no visualized rashes Psych: Normal affect and mood Results CBC & Chem 7: 11/24/24 05:10 11/24/24 05:10 Labs: Abnormal Lab Results - Last 24 Hours (Table) 11/22/24 11/22/24 Range/Units 16:29 16:29 Hgb 18.1 H (12.0-15.0) g/dL Hct 48.6 H (37.2-46.3) % MCV 97.4 H (80.0-97.0) fL MCH 36.3 H (27.0-32.0) pg MCHC 37.2 H (32.0-37.0) g/dL Carbon Dioxide 21 L (22-30) mmol/L Glucose 116 H (74-99) mg/dL Calcium 10.6 H (8.4-10.2) mg/dL Total Bilirubin 1.4 H (0.2-1.3) mg/dL Total Protein 8.8 H (6.3-8.2) g/dL Albumin 5.2 H (3.5-5.0) g/dL Thrombosis Risk Factor Assmnt - Choose All That Apply Any of the Below Risk Factors Present?: No Other Risk Factors: No Other congenital or acquired thrombophilia - If yes, enter type in comment: No Thrombosis Risk Factor Assessment Level: Very Low Risk Assessment and Plan Assessment: 1. Intractable abdominal pain; acute on chronic pancreatitis -CT of the abdomen reveals inflammatory changes around tail of pancreas; consistent with uncomplicated pancreatitis - Patient has been maintained on IV fluid hydration; remains n.p.o.; Protonix 40 mg IV every 12 hours - Pain control with IV Dilaudid - Consult surgery for further recommendations 2. Hyperbilirubinemia; likely related to chronic alcohol use; AST/ALT are within normal limits; will monitor liver function periodically 3. Hypertension; amlodipine 10 mg daily; hydrochlorothiazide 25 mg daily DVT prophylaxis; SCDs CODE STATUS; full code
--- NOTE | 2024-11-25 21:01 | P.PN ---
Subjective Progress Note Date: 11/24/24 29-year-old female, hypertension, chronic pancreatitis, has 1 day of abdominal pain states that she has epigastric pain that radiates to her back describes it as sharp and reminiscent of pancreatitis that she has been diagnosed within the past. Denies any history of cholecystectomy. Patient states that she has pancreatitis secondary to drinking. Blood work completed in ED reveals a WBC of 9.16, hemoglobin of 18.5 and platelet count of 222, sodium 139, potassium 3.7, BUN/creatinine of 12/0.81, calcium 10.6, total bilirubin elevated at 1.4 and lipase of 56 -CT of the chest reveals inflammatory changes involving pancreatic tail and distal body compatible with uncomplicated pancreatitis - Patient is placed on IV hydration and is admitted for further surgical evaluation --Patient continues to report severe abdominal pain; remains n.p.o. - We will repeat lipase and repeat CT of the abdomen Objective - Vital Signs Vital signs: Vital Signs Temp 98.4 F 11/24/24 07:15 Pulse 62 11/24/24 07:15 Resp 16 11/24/24 07:15 BP 135/83 11/24/24 07:15 Pulse Ox 99 11/24/24 07:15 FiO2 Intake & Output 11/23/24 11/24/24 11/24/24 18:59 06:59 18:59 Other: Voiding Method Toilet # Voids 1 7 - Exam General Impression: Alert and oriented x3, acute distress secondary to pain HEENT: Normocephalic atraumatic, extra-ocular movements intact, pupils equal and reactive to light bilaterally, mucous membranes moist. Cardiovascular: Heart regular rate and rhythm Chest: Able to complete full sentences, no retractions, no tachypnea Abdomen: abdomen soft, epigastric palpatory tenderness, non-distended, no organomegaly Musculoskeletal: Pulses present and equal in all extremities, no peripheral edema Motor: no focal deficits noted Neurological: CN II-XII grossly intact, no focal motor or sensory deficits noted Skin: Intact with no visualized rashes Psych: Normal affect and mood - Labs CBC & Chem 7: 11/24/24 05:10 11/24/24 05:10 Labs: Abnormal Lab Results - Last 24 Hours (Table) 11/24/24 Range/Units 05:10 Hgb 16.8 H (12.0-15.0) g/dL Hct 47.7 H (37.2-46.3) % MCV 100.0 H (80.0-97.0) FL MCH 35.2 H (27.0-32.0) pg Assessment and Plan Assessment: 1. Intractable abdominal pain; acute on chronic pancreatitis -CT of the abdomen reveals inflammatory changes around tail of pancreas; consistent with uncomplicated pancreatitis - Patient has been maintained on IV fluid hydration; remains n.p.o.; Protonix 40 mg IV every 12 hours - Pain control with IV Dilaudid - Consult surgery for further recommendations 2. Hyperbilirubinemia; likely related to chronic alcohol use; AST/ALT are within normal limits; will monitor liver function periodically 3. Hypertension; amlodipine 10 mg daily; hydrochlorothiazide 25 mg daily DVT prophylaxis; SCDs CODE STATUS; full code
--- NOTE | 2024-11-25 21:02 | P.PN ---
Subjective Progress Note Date: 11/25/24 29-year-old female, hypertension, chronic pancreatitis, has 1 day of abdominal pain states that she has epigastric pain that radiates to her back describes it as sharp and reminiscent of pancreatitis that she has been diagnosed within the past. Denies any history of cholecystectomy. Patient states that she has pancreatitis secondary to drinking. Blood work completed in ED reveals a WBC of 9.16, hemoglobin of 18.5 and platelet count of 222, sodium 139, potassium 3.7, BUN/creatinine of 12/0.81, calcium 10.6, total bilirubin elevated at 1.4 and lipase of 56 -CT of the chest reveals inflammatory changes involving pancreatic tail and distal body compatible with uncomplicated pancreatitis - Patient is placed on IV hydration and is admitted for further surgical evaluation --Patient continues to report severe abdominal pain; remains n.p.o. - We will repeat lipase and repeat CT of the abdomen 11/25/2024 Patient seen and evaluated resting in bed; reports some improvement with pain; continues to require IV Dilaudid Vital signs remained stable Lab review shows lipase normal at -Repeat CT of the abdomen remains unchanged and reveals inflammatory changes around the pancreas - With improved pain patient is willing to try low fiber diet Objective - Vital Signs Vital signs: Vital Signs Temp 98.5 F 11/25/24 06:58 Pulse 87 11/25/24 06:58 Resp 15 11/25/24 06:58 BP 146/83 11/25/24 06:58 Pulse Ox 100 11/25/24 06:58 FiO2 Intake & Output 11/24/24 11/25/24 11/25/24 18:59 06:59 18:59 Intake Total 1560 Balance 1560 Intake: Intake, IV Titration 1560 Amount Sodium Chloride 0.9% 1, 1560 000 ml @ 130 mls/hr IV . Q7H42M [facility] Rx#:[id number] Oral 0 Other: Voiding Method Toilet # Voids 5 - Exam General Impression: Alert and oriented x3, acute distress secondary to pain HEENT: Normocephalic atraumatic, extra-ocular movements intact, pupils equal and reactive to light bilaterally, mucous membranes moist. Cardiovascular: Heart regular rate and rhythm Chest: Able to complete full sentences, no retractions, no tachypnea Abdomen: abdomen soft, epigastric palpatory tenderness, non-distended, no organomegaly Musculoskeletal: Pulses present and equal in all extremities, no peripheral edema Motor: no focal deficits noted Neurological: CN II-XII grossly intact, no focal motor or sensory deficits noted Skin: Intact with no visualized rashes Psych: Normal affect and mood - Labs CBC & Chem 7: 11/24/24 05:10 11/24/24 05:10 Labs: Abnormal Lab Results - Last 24 Hours (Table) 11/24/24 Range/Units 05:10 Carbon Dioxide 17.0 L (21.6-31.8) mmol/L Anion Gap 20.00 H (4.00-12.00) mmol/L BUN 5.1 L (9.0-27.0) mg/dL BUN/Creatinine Ratio 7.29 L (12.00-20.00) Ratio Assessment and Plan Assessment: 1. Intractable abdominal pain; acute on chronic pancreatitis -CT of the abdomen reveals inflammatory changes around tail of pancreas; consistent with uncomplicated pancreatitis - Patient has been maintained on IV fluid hydration; remains n.p.o.; Protonix 40 mg IV every 12 hours - Pain control with IV Dilaudid - Consult surgery for further recommendations 2. Hyperbilirubinemia; likely related to chronic alcohol use; AST/ALT are within normal limits; will monitor liver function periodically 3. Hypertension; amlodipine 10 mg daily; hydrochlorothiazide 25 mg daily DVT prophylaxis; SCDs CODE STATUS; full code
[2024-11-26 07:54] VITALS: BP 141/91; PULSE 96; RESP 17; TEMP 98.1
[2024-11-26] MEDS ORDERED: KETOROLAC 15 MG/ML 1 ML VIAL IVP PRN (09:39)
[2024-11-26] MEDS: HYDROcodone/APAP 5-325MG 1 EACH TAB PO PRN (11:01)
--- NOTE | 2024-11-26 14:33 | P.PN ---
Subjective Progress Note Date: 11/26/24 SURGICAL PROGRESS NOTE CHIEF COMPLAINT: Chronic pancreatitis HISTORY OF PRESENT ILLNESS: Patient tolerating low fiber diet. She reports her pain is improving. Per nursing staff she had still been using the Dilaudid and nausea medication. Patient feels ready for discharge. PHYSICAL EXAM: VITAL SIGNS: Reviewed. GENERAL: Well-developed in no acute distress. ABDOMEN: Soft. Nondistended. NEUROLOGIC: Alert and oriented. Cranial nerves II through XII grossly intact. ASSESSMENT: 1. 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 Signing provider agrees with the documented findings, assessment, and plan of care. Objective - Vital Signs Vital signs: Vital Signs Temp 98.1 F 11/26/24 06:52 Pulse 96 11/26/24 06:52 Resp 17 11/26/24 06:52 BP 141/91 11/26/24 06:52 Pulse Ox 98 11/26/24 06:52 FiO2 Intake & Output 11/25/24 11/26/24 11/26/24 18:59 06:59 18:59 Other: Voiding Method Toilet Toilet # Voids 5 3 3 # Bowel Movements 1 - Labs CBC & Chem 7: 11/24/24 05:10 11/24/24 05:10
--- NOTE | 2024-12-05 21:51 | P.DS ---
Providers Date of admission: 11/22/24 19:23 Expected date of discharge: 11/26/24 Attending physician: Felice Albert Consults: 11/22/24 19:22 Consult Physician Routine Consulting Provider: Michelet Kerns Consult Reason/Comments: intractable abdominal pain Do you want consulting provider notified?: Yes 11/23/24 10:40 Consult Physician Routine Consulting Provider: Heidi Alvarez Consult Reason/Comments: Pancreatitis Do you want consulting provider notified?: Yes Primary care physician: Tiara Pollock [facility] Course: Final diagnosis 1. Intractable abdominal pain; acute on chronic pancreatitis, CT of the abdomen reveals inflammatory changes around tail of pancreas; consistent with uncomplicated pancreatitis 2. Hyperbilirubinemia; likely related to chronic alcohol use; AST/ALT are within normal limits 3. Hypertension DVT prophylaxis; SCDs CODE STATUS; full code Discharge disposition Patient is being discharged in a stable condition with guarded prognosis to home . Patient will follow-up with Dr. Mihir Albert in the outpatient setting upon discharge. Patient is to continue with current medications along with refraining from any alcohol use and outpatient follow-up with GI as scheduled. Total time taken is greater than 35 minutes. Hospital course This is a 29-year-old female who was recently admitted with severe abdominal pain with concerns of acute on chronic pancreatitis. Patient being closely monitored maintained on IV hydration and bowel rest reporting feeling somewhat improved and wanting to try diet. Patient is tolerating low fiber diet and would like to go home. Patient will need outpatient follow-up with primary care provider as well as GI in the outpatient setting. Recommend to refrain from any alcohol use or exposure. Currently no reports of chest pain, shortness of breath, or palpitations. Patient is afebrile. No reports of nausea or vomiting and patient is tolerating diet. Patient will be discharged home today. High risk for readmissions given noncompliance and continued pancreatitis. Physical exam: Gen: This is a 29-year-old female who is awake, alert and oriented x 3, well- developed, well-nourished, obese HEENT: Head is atraumatic, normocephalic. Pupils equal, round. Sclerae is anicteric. NECK: Supple. No JVD. No lymphadenopathy. No thyromegaly. LUNGS: Clear to auscultation. No wheezes or rhonchi. No intercostal retractions. HEART: Regular rate and rhythm. No murmur. ABDOMEN: Soft. Bowel sounds are present. No masses. Less tenderness noted on palpation. EXTREMITIES: No pedal edema. No calf tenderness. NEUROLOGICAL: Patient is awake, alert and oriented x3. Cranial nerves 2 through 12 are grossly intact. Please refer to medication reconciliation sheet for a list of medications. The impression and plan of care has been dictated by Lindsey Banda, Nurse Practitioner as directed. Dr. Arpita MD I have performed a history and examination and MDM of this patient, discussed the same with the dictator, and agree with the dictator's assessment and plan as written ,documented as a scribe. Based on total visit time, I have performed more than 50% of the visit. Patient Condition at Discharge: Fair Plan - Discharge Summary Discharge Rx Participant: Yes New Discharge Prescriptions: New Acetaminophen Tab [Tylenol] 650 mg PO Q6HR PRN tab PRN Reason: Mild Pain Or Fever > 100.5 Continue Ondansetron Odt [Zofran ODT] 4 mg PO Q8HR PRN #10 tab PRN Reason: Nausea Pantoprazole Sodium [Protonix] 20 mg PO BID-W/MEALS hydroCHLOROthiazide [Hydrodiuril] 25 mg PO DAILY 30 Days #30 tab amLODIPine [Norvasc] 10 mg PO DAILY 30 Days #30 tab Benzoyl Peroxide Cleanser 10% 1 applic TOPICAL DAILY PRN PRN Reason: when showering Discharge Medication List amLODIPine [Norvasc] 10 mg PO DAILY 30 Days #30 tab 11/03/24 [Rx] hydroCHLOROthiazide [Hydrodiuril] 25 mg PO DAILY 30 Days #30 tab 11/03/24 [Rx] Ondansetron Odt [Zofran ODT] 4 mg PO Q8HR PRN #10 tab 11/12/24 [Rx] Benzoyl Peroxide Cleanser 10% 1 applic TOPICAL DAILY PRN 11/14/24 [History] Pantoprazole Sodium [Protonix] 20 mg PO BID-W/MEALS 11/22/24 [History] Acetaminophen Tab [Tylenol] 650 mg PO Q6HR PRN tab 11/26/24 [Rx] Follow up Appointment(s)/Referral(s): Heidi Alvarez MD [STAFF PHYSICIAN] - 1 Week Sunilkumar,Mini, MD [Primary Care Provider] - 1-2 days Patient Instructions/Handouts: Pancreatitis (DC) Discharge Disposition: HOME SELF-CARE
== END 2024-11-26 12:28 | disposition home or self-care (01) | DRG 282 ==
LOC: EC 16:07 → OBSVTOIN 19:23 → 4SSUR 19:23 → INTOOBSV 19:23 → 4SSUR 19:36
PROVIDERS: ADMIT Hospitalist; ATTEND Hospitalist
DX: K85.20 Alcohol induced acute pancreatitis without necrosis or infection (principal); K86.0 Alcohol-induced chronic pancreatitis; Z79.899 Other long term (current) drug therapy; Z87.442 Personal history of urinary calculi; Z90.49 Acquired absence of other specified parts of digestive tract; I10 Essential (primary) hypertension; K57.32 Diverticulitis of large intestine without perforation or abscess without bleeding; F10.10 Alcohol abuse, uncomplicated; F17.210 Nicotine dependence, cigarettes, uncomplicated; Z71.41 Alcohol abuse counseling and surveillance of alcoholic; Z71.6 Tobacco abuse counseling; Z86.14 Personal history of Methicillin resistant Staphylococcus aureus infection
CPT/HCPCS: 36415; 74170; 80048; 80053; 83690; 85025; 96361; 96374; 96375; 96376; 99285

== ENCOUNTER → 2024-11-26 | Outpatient (CLI) | payer OTHER ==
--- NOTE | 2024-11-26 15:15 | CT ---
EXAMINATION TYPE: CT ankle LT wo con CT DLP: 167.20 mGycm, Automated exposure control for dose reduction was used. DATE OF EXAM: 11/26/2024 2:59 PM COMPARISON: CT left ankle 08/03/2024, left ankle radiograph 08/03/2024 CLINICAL INDICATION:Female, 29 years old with history of S82.832K FX LOW END FIBULA WITH NONUNION; PH H, fx right ankle September 2024 TECHNIQUE: Axial images were obtained of the left ankle without the use of IV contrast. Additional c oronal and sagittal reformatted images and soft tissue and bone window were obtained for review. 3-D reconstruction was created on a separate workstation. FINDINGS: Redemonstration of transverse oriented minimally displaced fracture through the distal fibu la lateral malleolus. Approximately 1 mm displacement. No significant callus formation identified. Fr acture line is still visible. Minimal adjacent soft tissue edema. No acute fracture or dislocation. N o joint effusion. No radiopaque foreign body identified. Small plantar and posterior cannula enthesop hytes. IMPRESSION: Redemonstration of a lateral malleolar distal fibular fracture without significant callus formation. Fracture line is still present. Findings most consistent with nonunion. No new fracture or dislocatio n. [facility], , 11/26/2024 3:12 PM
== END | disposition home or self-care (01) ==
LOC: RADCTMAIN 14:25
PROVIDERS: ATTEND Podiatrist
DX: S82.832K Other fracture of upper and lower end of left fibula, subsequent encounter for closed fracture with nonunion (principal)

== ENCOUNTER 2024-12-12 07:31 | Emergency (ER) | payer OTHER ==
[2024-12-12] MEDS: diphenhydrAMINE 50 MG/ML 1 ML VIAL IVP STA ×2 (08:18→10:01)
[2024-12-12] MEDS: PROCHLORPERAZINE INJ 10 MG/2 ML VIAL IVP STA (08:20)
[2024-12-12] MEDS: HYDROmorphone 1 MG/ML 1 ML SYRINGE IVP STA (08:23)
[2024-12-12] MEDS: PANTOPRAZOLE 40 MG/10 ML VIAL IVP STA (08:25)
[2024-12-12 08:50] LABS: ALT 48 U/L (4-34); AST 85 U/L (14-36); African American GFR (CKD) >90 (>60 ml/min/1.73 sqM); Albumin 5.3 g/dL (3.5-5.0); Alcohol 16 mg/dL; Alkaline Phosphatase 94 U/L (38-126); Amylase 109 U/L (30-110); Anion Gap 15 mmol/L; Blood Urea Nitrogen 9 mg/dL (7-17); Calcium 10.5 mg/dL (8.4-10.2); Carbon Dioxide 21 mmol/L (22-30); Chloride 105 mmol/L (98-107); Glucose 93 mg/dL (74-99); HCG,Qualitative Serum Not Detected; Lipase 94 U/L (23-300); Non-African American GFR(CKD) >90 (>60 ml/min/1.73 sqM); Potassium 3.6 mmol/L (3.5-5.1); Sodium 141 mmol/L (137-145); Total Bilirubin 1.1 mg/dL (0.2-1.3); Total Protein 9.3 g/dL (6.3-8.2)
[2024-12-12 08:53] LABS: Basophils # (A) 0.03 10*3/uL (0.00-0.10); Basophils % (A) 0.4 %; Eosinophils % (A) 2.4 %; HCT 48.9 % (37.2-46.3); HGB 18.2 g/dL (12.0-15.0); Lymphocytes # (A) 1.62 10*3/uL (0.90-5.00); Lymphocytes % (A) 19.6 %; MCH 36.3 pg (27.0-32.0); MCHC 37.2 g/dL (32.0-37.0); MCV 97.4 fL (80.0-97.0); Mean Platelet Volume 9.6 fL (9.5-12.2); Monocytes # (A) 0.48 10*3/uL (0.20-1.00); Monocytes % (A) 5.8 %; Neutrophils # (A) 5.93 10*3/uL (1.80-7.70); Neutrophils % (A) 71.6 %; Platelet Count 265 10*3/uL (140-440); RBC 5.02 10*6/uL (4.10-5.20); RDW 14.3 % (11.5-14.5); WBC 8.28 10*3/uL (4.50-10.00)
[2024-12-12] MEDS: LACTATED RINGERS 1,000 ML IV SCH (09:02)
[2024-12-12] MEDS: LACTATED RINGERS 1,000 ML IV ONE (09:02)
[2024-12-12 09:06] LABS: Partial Thromboplastin Time 24.1 sec (22.0-30.0); Prothrombin Time 11.4 sec (10.0-12.5)
--- NOTE | 2024-12-12 09:18 | US ---
EXAMINATION TYPE: US gallbladder DATE OF EXAM: 12/12/2024 COMPARISON: 10/22/24 CLINICAL INDICATION: Female, 29 years old with history of n/v; n/v TECHNIQUE: Grayscale and color Doppler imaging of the right upper quadrant was performed. FINDINGS: EXAM MEASUREMENTS: Liver Length: 19.4 cm Gallbladder Wall: 0.24 cm CBD: 0.46 cm Right Kidney: 11.7 x 6.1 x 4.3 cm Pancreas: duct measuring 2mm, within acceptable limits. Visualized pancreatic head and a gross abnor mality. Tail is obscured by bowel gas shadowing. Liver: heterogeneous and mildly enlarged. No focal lesion is seen. Gallbladder: wnl Evidence for sonographic Hanks's sign: No CBD: wnl Right Kidney: wnl IMPRESSION: 1. Mild hepatomegaly at 19.4 cm. Suspect mild to moderate hepatic steatosis. Correlate with LFTs, lip id profile, and patient risk factors. 2. No gallstones or biliary ductal dilatation. [facility], , 12/12/2024 9:16 AM
[2024-12-12 09:48] LABS: Appearance,Urine Cloudy (Clear); Bacteria,Urine Rare /hpf; Bilirubin,Urine Negative (Negative); Blood,Urine Negative (Negative); Color,Urine Yellow; Glucose,Urine (UA) Negative (Negative); Ketones,Urine Trace (Negative); Leukocyte Esterase,Urine Large (Negative); Mucus,Urine Few /hpf; Nitrite,Urine Negative (Negative); PH, Urine 6.5 (5.0-8.0); Protein,Urine Trace (Negative); RBC,Urine 1 /hpf (0-5); Specific Gravity,Urine 1.024 (1.001-1.035); Squamous Epithelial Cell,Urine 13 /hpf (0-4); WBC,Urine 9 /hpf (0-5)
[2024-12-12] MEDS: HALOPERIDOL LACTATE 5 MG/ML 1 ML VIAL IVP STA (10:03)
--- NOTE | 2024-12-12 10:55 | US ---
EXAMINATION TYPE: US venous doppler duplex UE LT DATE OF EXAM: 12/12/2024 COMPARISON: NONE CLINICAL INDICATION: Female, 29 years old with history of forearm swelling from recent IV; No hx of D VT. Patient had a recent IV in left forearm. Swelling and pain. TECHNIQUE: Grayscale, color Doppler and spectral Doppler imaging of the upper extremity. SIDE PERFORMED: Left arm VESSELS IMAGED: IJV Subclavian Vein Axilla Vein Brachial Vein(s) Radial Paired Veins Ulnar Paired Veins Cephalic Vein* Basilic Vein* (*superficial vessels) FINDINGS: Left Arm: Positive for superficial thrombus. *Internal echoes seen in left cephalic vein and left basilic vein at the elbow and forearm levels. These vessels do not compress and show lack of color fl ow in these segments. No evidence of DVT. IMPRESSION: 1. Positive for acute SVT involving the cephalic and basilic veins at the level of the elbow and fore arm. 2. No evidence for DVT within the left upper extremity. [facility], , 12/12/2024 10:52 AM
--- NOTE | 2024-12-12 11:52 | ED ---
General Adult HPI - General Chief complaint: Abdominal Pain Stated complaint: ABD Pain Time Seen by Provider: 12/12/24 07:40 Source: patient, RN notes reviewed, old records reviewed Mode of arrival: ambulatory Limitations: no limitations - History of Present Illness Initial comments: Patient is a 29-year-old female presents emergency department complaint of acute on chronic abdominal pain. States that it is in the epigastric region. 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 Endorses multiple episodes of nausea and vomiting. Has dry heaving as well. Epigastric abdominal pain. Denies any other acute complaints. Presents for further evaluation at this time. Denies any known sick contacts. States she was drinking alcohol last night.Patient is also complaining of an IV site from 2 weeks ago. States it is hard and painful in the anterior left forearm. No skin changes. No redness or swelling. Palpable vein at this site. No edema of the left arm. - Related Data Home Medications Medication Instructions Recorded Confirmed Benzoyl Peroxide Cleanser 10% 1 applic TOPICAL DAILY PRN 11/14/24 11/22/24 Pantoprazole Sodium [Protonix] 20 mg PO BID-W/MEALS 11/22/24 11/22/24 Previous Rx's Medication Instructions Recorded amLODIPine [Norvasc] 10 mg PO DAILY 30 Days #30 tab 11/03/24 hydroCHLOROthiazide [Hydrodiuril] 25 mg PO DAILY 30 Days #30 tab 11/03/24 Ondansetron Odt [Zofran ODT] 4 mg PO Q8HR PRN #10 tab 11/12/24 Acetaminophen Tab [Tylenol] 650 mg PO Q6HR PRN tab 11/26/24 Allergies Allergy/AdvReac Type Severity Reaction Status Date / Time No Known Allergies Allergy Verified 12/12/24 07:35 Review of Systems ROS Statement: Those systems with pertinent positive or pertinent negative responses have been documented in the HPI. Review of Systems: CONST: Denies fever EYES: Denies blurry vision ENT: Denies nasal congestion C/V: Denies Chest pain RESP: Denies shortness of breath GI: Endorses abdominal pain : Denies dysuria SKIN: Denies rash. MSK: Endorses left forearm pain at site of previous IV site NEURO: Denies headache ROS Other: All systems not noted in ROS Statement are negative. Past Medical History Past Medical History: Hypertension, Thyroid Disorder Additional Past Medical History / Comment(s): Hydradenitis suppertiva; Kidney stones, PANCREATITIS History of Any Multi-Drug Resistant Organisms: MRSA Date of last positivie culture/infection: 10/09/24 MDRO Source:: buttock Past Surgical History: No Surgical Hx Reported Additional Past Surgical History / Comment(s): cyst removed from buttocks two years ago, cystoscopy with right ureteroscopy and holmium laser lithotripsy on 09/19/2020 Past Anesthesia/Blood Transfusion Reactions: No Reported Reaction Past Psychological History: No Psychological Hx Reported Smoking Status: Current every day smoker Past Alcohol Use History: Heavy Past Drug Use History: Marijuana - Past Family History Mother Family Medical History: No Reported History General Exam - General Exam Comments Initial Comments: General: Appears in no acute distress. HEAD: Normal with no signs of head trauma. EYES: EOMI ENT: Hearing grossly intact, normal oropharynx. RESPIRATORY: Clear breath sounds bilaterally. No wheezes, rales, or rhonchi. C/V: Regular rate and rhythm. S1 and S2 auscultated, no edema, peripheral pulses 2+ and intact throughout ABD: Abdomen soft, nondistended. Mildly tender to palpation epigastric region. EXT: Normal range of motion, no obvious deformity. Palpable pain in the anterior left forearm. Suspect superficial thrombophlebitis. No obvious skin changes to suggest infectious process. Intact peripheral pulses. No upper extremity edema. SKIN: No rashes or lesions observed on exposed skin. NEURO: Alert and oriented x 4. Limitations: no limitations Course Vital Signs 12/12/24 12/12/24 07:33 12:08 Temperature 97.9 F 98.8 F Pulse Rate 107 H 80 Respiratory 18 16 Rate Blood Pressure 154/111 131/80 O2 Sat by Pulse 98 98 Oximetry Medical Decision Making - Medical Decision Making Was pt. sent in by a medical professional or institution (, PA, VIDEO NEWS EDITOR, urgent ca re, hospital, or fpc...) When possible be specific @ -No Did you speak to anyone other than the patient for history (EMS, parent, family, police, friend...)? What history was obtained from this source @ -No Did you review nursing and triage notes (agree or disagree)? Why? @ -I reviewed and agree with nursing and triage notes Were old charts reviewed (outside hosp., previous admission, EMS record, old EKG, old radiological studies, urgent care reports/EKG's, fpc records)? Report findings @ -All charts reviewed which shows patient's presentation for similar complaints in the past. Most recent visit for similar complaint was December 05, 2024, also November 22, 2024. Differential Diagnosis (chest pain, altered mental status, abdominal pain women, abdominal pain men, vaginal bleeding, weakness, fever, dyspnea, syncope, headache, dizziness, GI bleed, back pain, seizure, CVA, palpatations, mental health, musculoskeletal)? @ -Differential Abdominal Pain Women: Appendicitis, Cholecystitis, diverticulosis, ischemic bowel, pancreatitis, hepatitis, UTI, gastroenteritis, AAA, incarcerated hernia, bowel obstruction, constipation, inflammatory bowel, hepatitis, peptic ulcer disease, splenic infarction, perforated viscus, vulvitis, ovarian torsion, PID, kidney stone, placenta abruption, this is not meant to be an all-inclusive list EKG interpreted by me (3pts min.). @ -As above X-rays interpreted by me (1pt min.). @ -None done CT interpreted by me (1pt min.). @ -None done U/S interpreted by me (1pt. min.). @ -Gallbladder ultrasound negative for any obvious acute process. Mild hepatomegaly present. Venous duplex shows superficial thrombophlebitis of the left forearm. No DVT. What testing was considered but not performed or refused? (CT, X-rays, U/S, labs)? Why? @ -None What meds were considered but not given or refused? Why? @ -None Did you discuss the management of the patient with other professionals (professionals i.e. , PA, VIDEO NEWS EDITOR, lab, RT, psych nurse, licensed social worker, utility worker roller shop, teacher, staff command and control officer, rn case manager hospice)? Give summary @ -No Was smoking cessation discussed for >3mins.? @ -No Was critical care preformed (if so, how long)? @ -No Were there social determinants of health that impacted care today? How? (Homelessness, low income, unemployed, alcoholism, drug addiction, transportation, low edu. Level, literacy, decrease access to med. care, custodial, rehab)? @ -No Was there de-escalation of care discussed even if they declined (Discuss DNR or withdrawal of care, Hospice)? DNR status @ -No What co-morbidities impacted this encounter? (DM, HTN, Smoking, COPD, CAD, Cancer, CVA, ARF, Chemo, Hep., AIDS, mental health diagnosis, sleep apnea, morbid obesity)? @ -None Was patient admitted / discharged? Hospital course, mention meds given and route, prescriptions, significant lab abnormalities, going to OR and other pertinent info. @ -Based on the patient's presentation physical exam, presents emergency department complaining of acute on chronic abdominal pain. Also concern for superficial thrombophlebitis of the left forearm. Will obtain abdominal workup. She has received CTs in the past and as this is chronic we will start with just gallbladder ultrasound and labs. She was in agreement this plan. Given IV analgesia medications, as well as symptomatic relief with Zofran and fluids. She was in agreement this plan. Vitals are within acceptable limits. EKG shows no signs of acute ischemia. Gallbladder ultrasound shows hepatomegaly without any obvious other acute process. Venous duplex ultrasound does show superficial thrombophlebitis of the left forearm. Labs are remarkable for mild dehydration with a lactic acid of 2.5 but otherwise unremarkable. Chronically elevated LFTs which are within baseline for the patient. Urinalysis is contaminated. Alcohol level is 16. I discussed the results with the patient. She is feeling improved after additional medications. Recommended initial treatment of the superficial thrombophlebitis conservatively with warm compresses, Bernard wrap, elevation, and NSAIDs. Recommended follow-up with vascular surgery if symptoms do not improve. Patient was in agreement this plan. Strict return precautions were discussed. Counseled her on marijuana cessation. I instructed the patient to follow up with their PCP in the next 1-3 days. I explained that the patient should return to the emergency department if they experience any worsening symptoms. Strict return precautions were discussed with the patient. The patient expressed understanding of these instructions. I ans wered all questions that the patient had. The patient was discharged home in fair condition with their prescriptions and follow up information. Undiagnosed new problem with uncertain prognosis? @ -No Drug Therapy requiring intensive monitoring for toxicity (Heparin, Nitro, Insulin, Cardizem)? @ -No Were any procedures done? @ -No Diagnosis/symptom? @ -Abdominal pain, nausea vomiting Acute, or Chronic, or Acute on Chronic? @ -Acute on chronic Uncomplicated (without systemic symptoms) or Complicated (systemic symptoms)? @ -Uncomplicated Side effects of treatment? @ -No Exacerbation, Progression, or Severe Exacerbation? @ -No Poses a threat to life or bodily function? How? (Chest pain, [place], [place], pneumonia, PE, COPD, DKA, ARF, appy, cholecystitis, CVA, Diverticulitis, Homicidal, Suicidal, threat to staff... and all critical care pts) @ -Unlikely at this time Diagnosis/symptom? @ -Superficial thrombophlebitis Acute, or Chronic, or Acute on Chronic? @ -Acute Uncomplicated (without systemic symptoms) or Complicated (systemic symptoms)? @ -Uncomplicated Side effects of treatment? @ -None Exacerbation, Progression, or Severe Exacerbation] @ -No Poses a threat to life or bodily function? @ -Unlikely at this time - Lab Data Result diagrams: 12/12/24 08:09 12/12/24 08:09 Lab Results 12/12/24 12/12/24 12/12/24 Range/Units 08:09 08:09 08:09 WBC 8.28 (4.50-10.00) 10*3/uL RBC 5.02 (4.10-5.20) 10*6/uL Hgb 18.2 H (12.0-15.0) g/dL Hct 48.9 H (37.2-46.3) % MCV 97.4 H (80.0-97.0) fL MCH 36.3 H (27.0-32.0) pg MCHC 37.2 H (32.0-37.0) g/dL Plt Count 265 (140-440) 10*3/uL MPV 9.6 (9.5-12.2) fL Immature Gran % (Auto) 0.2 % Neutrophils % 71.6 % Lymphocytes % 19.6 % Monocytes % 5.8 % Eosinophils % 2.4 % Basophils % 0.4 % Immature Gran # 0.02 (0.00-0.04) 10*3/uL Neutrophils # 5.93 (1.80-7.70) 10*3/uL Lymphocytes # 1.62 (0.90-5.00) 10*3/uL Monocytes # 0.48 (0.20-1.00) 10*3/uL Eosinophils # 0.20 (0.04-0.35) 10*3/uL Basophils # 0.03 (0.00-0.10) 10*3/uL PT (10.0-12.5) sec INR (<1.2) APTT (22.0-30.0) sec Sodium 141 (137-145) mmol/L Potassium 3.6 (3.5-5.1) mmol/L Chloride 105 (98-107) mmol/L Carbon Dioxide 21 L (22-30) mmol/L Anion Gap 15 mmol/L BUN 9 (7-17) mg/dL Creatinine 0.73 (0.52-1.04) mg/dL Est GFR (CKD-EPI)AfAm >90 (>60 ml/min/1.73 sqM) Est GFR (CKD-EPI)NonAf >90 (>60 ml/min/1.73 sqM) Glucose 93 (74-99) mg/dL Lactic Ac Sepsis Rflx Plasma Lactic Acid Kartik (0.7-2.0) mmol/L Calcium 10.5 H (8.4-10.2) mg/dL Total Bilirubin 1.1 (0.2-1.3) mg/dL AST 85 H (14-36) U/L ALT 48 H (4-34) U/L Alkaline Phosphatase 94 (38-126) U/L Total Protein 9.3 H (6.3-8.2) g/dL Albumin 5.3 H (3.5-5.0) g/dL Amylase 109 (30-110) U/L Lipase 94 (23-300) U/L HCG, Qual Not Detected Urine Color Yellow Urine Appearance Cloudy H (Clear) Urine pH 6.5 (5.0-8.0) Ur Specific [place] 1.024 (1.001-1.035) Urine Protein Trace H (Negative) Urine Glucose (UA) Negative (Negative) Urine Ketones Trace H (Negative) Urine Blood Negative (Negative) Urine Nitrite Negative (Negative) Urine Bilirubin Negative (Negative) Urine Urobilinogen 2.0 (<2.0) mg/dL Ur Leukocyte Esterase Large H (Negative) Urine RBC 1 (0-5) /hpf Urine WBC 9 H (0-5) /hpf Ur Squamous Epith Cells 13 H (0-4) /hpf Urine Bacteria Rare H (None) /hpf Urine Mucus Few H (None) /hpf Serum Alcohol 16 mg/dL 0512/12/24 12/12/24 Range/Units 08:09 08:09 08:56 WBC (4.50-10.00) 10*3/uL RBC (4.10-5.20) 10*6/uL Hgb (12.0-15.0) g/dL Hct (37.2-46.3) % MCV (80.0-97.0) fL MCH (27.0-32.0) pg MCHC (32.0-37.0) g/dL Plt Count (140-440) 10*3/uL MPV (9.5-12.2) fL Immature Gran % (Auto) % Neutrophils % % Lymphocytes % % Monocytes % % Eosinophils % % Basophils % % Immature Gran # (0.00-0.04) 10*3/uL Neutrophils # (1.80-7.70) 10*3/uL Lymphocytes # (0.90-5.00) 10*3/uL Monocytes # (0.20-1.00) 10*3/uL Eosinophils # (0.04-0.35) 10*3/uL Basophils # (0.00-0.10) 10*3/uL PT 11.4 (10.0-12.5) sec INR 1.0 (<1.2) APTT 24.1 (22.0-30.0) sec Sodium (137-145) mmol/L Potassium (3.5-5.1) mmol/L Chloride (98-107) mmol/L Carbon Dioxide (22-30) mmol/L Anion Gap mmol/L BUN (7-17) mg/dL Creatinine (0.52-1.04) mg/dL Est GFR (CKD-EPI)AfAm (>60 ml/min/1.73 sqM) Est GFR (CKD-EPI)NonAf (>60 ml/min/1.73 sqM) Glucose (74-99) mg/dL Lactic Ac Sepsis Rflx Y Plasma Lactic Acid Kartik 2.5 H* (0.7-2.0) mmol/L Calcium (8.4-10.2) mg/dL Total Bilirubin (0.2-1.3) mg/dL AST (14-36) U/L ALT (4-34) U/L Alkaline Phosphatase (38-126) U/L Total Protein (6.3-8.2) g/dL Albumin (3.5-5.0) g/dL Amylase (30-110) U/L Lipase (23-300) U/L HCG, Qual Urine Color Urine Appearance (Clear) Urine pH (5.0-8.0) Ur Specific [place] (1.001-1.035) Urine Protein (Negative) Urine Glucose (UA) (Negative) Urine Ketones (Negative) Urine Blood (Negative) Urine Nitrite (Negative) Urine Bilirubin (Negative) Urine Urobilinogen (<2.0) mg/dL Ur Leukocyte Esterase (Negative) Urine RBC (0-5) /hpf Urine WBC (0-5) /hpf Ur Squamous Epith Cells (0-4) /hpf Urine Bacteria (None) /hpf Urine Mucus (None) /hpf Serum Alcohol mg/dL - EKG Data -: EKG Interpreted by Me EKG Comments: 12-lead Electrocardiogram Interpretation Note EKG was reviewed and interpreted by myself. 12-lead ECG performed at 0807 is interpreted by me as revealing normal sinus rhythm at a rate of 81 beats per minute. [place] is normal. LA interval is 157 ms, QRS duration is 97 ms, QTc is 428 ms.. There were no ST or T wave abnormalities to suggest myocardial ischemia or injury. R wave progression across the precordium was satisfactory. By my interpretation this EKG is non-diagnostic for acute ischemia. Disposition Clinical Impression: Abdominal pain, Nausea and vomiting, Superficial thrombophlebitis Disposition: HOME SELF-CARE Condition: Fair Instructions (If sedation given, give patient instructions): Superficial Thr ombophlebitis (ED), Abdominal Pain (ED) Additional Instructions: Elevate your left arm, wrap forearm with bernard wrap, and use hot packs on it with ibuprofen for pain control for the next at least 5 days. follow up with Dr. Parker of Vascular surgery in 1-3 days. Return to the ER if any worsening symptoms.Stop smoking marijuana as this likely caused your nausea and vomiting today. return to the ER if any worsening symptoms Is patient prescribed a controlled substance at d/c from ED?: No Referrals: Tiara Pollock MD [Primary Care Provider] - 1-2 days Matthew Parker DO [STAFF PHYSICIAN] - 1-2 days Time of Disposition: 11:51
[2024-12-12] MEDS: ACET/COD 300 MG/30 MG STARTER PACK 6 TAB BTL PO STA (12:07)
[2024-12-12] MEDS: ONDANSETRON 4 MG ODT STARTER PACK 2 TAB BTL PO STA (12:07)
[2024-12-12] MEDS: KETOROLAC 15 MG/ML 1 ML VIAL IVP STA (12:08)
[2024-12-12] MEDS: HYDROmorphone 0.5 MG/0.5 ML SYRINGE IVP STA (12:08)
[2024-12-12 12:11] VITALS: BP 131/80; PULSE 80; RESP 16; TEMP 98.8
== END 2024-12-12 12:24 | disposition home or self-care (01) ==
LOC: EC 07:31
DX: G89.29 Other chronic pain (principal); I80.9 Phlebitis and thrombophlebitis of unspecified site; R10.13 Epigastric pain; R11.2 Nausea with vomiting, unspecified; F17.200 Nicotine dependence, unspecified, uncomplicated
CPT/HCPCS: 36415; 93005; 80053; 82150; 83605; 83690; 85025; 85610; 85730; 81001; 84703; 76705; 93971; 99285; 96374; 96375; 96376 ×2; 96361; G0480; J1200; J0780; J1630; J1171 ×2; J1885; S0119; J2470; 80320

== ENCOUNTER 2025-01-13 06:46 | Inpatient (IN) | payer OTHER ==
--- NOTE | 2025-01-13 07:26 | ED ---
Abdominal Pain HPI - General Chief Complaint: Abdominal Pain Stated Complaint: Back pain, abd pain, vomiting Time Seen by Provider: 01/13/25 06:48 Source: patient, RN notes reviewed Mode of arrival: ambulatory - History of Present Illness Initial Comments: 30-year-old female with history of alcohol abuse and hypertension presenting to the emergency room with complaints of epigastric abdominal pain with radiation into her back over the past 2 hours. Patient states that pain feels similar to when she has had a flare of pancreatitis in the past. States that pancreatitis has been secondary to alcohol use. States her last drink was within the last 24 hours as her birthday was yesterday. Patient denies urinary or bowel habit changes. denies history of alcohol withdrawal or alcohol withdrawal seizures. - Related Data Home Medications Medication Instructions Recorded Confirmed Benzoyl Peroxide Cleanser 10% 1 applic TOPICAL DAILY PRN 11/14/24 11/22/24 Pantoprazole Sodium [Protonix] 20 mg PO BID-W/MEALS 11/22/24 11/22/24 Previous Rx's Medication Instructions Recorded amLODIPine [Norvasc] 10 mg PO DAILY 30 Days #30 tab 11/03/24 hydroCHLOROthiazide [Hydrodiuril] 25 mg PO DAILY 30 Days #30 tab 11/03/24 Ondansetron Odt [Zofran ODT] 4 mg PO Q8HR PRN #10 tab 11/12/24 Acetaminophen Tab [Tylenol] 650 mg PO Q6HR PRN tab 11/26/24 Allergies Allergy/AdvReac Type Severity Reaction Status Date / Time No Known Allergies Allergy Verified 01/13/25 07:04 Review of Systems ROS Statement: Those systems with pertinent positive or pertinent negative responses have been documented in the HPI. ROS Other: All systems not noted in ROS Statement are negative. Past Medical History Past Medical History: Hypertension, Thyroid Disorder Additional Past Medical History / Comment(s): Hydradenitis suppertiva; Kidney stones, PANCREATITIS History of Any Multi-Drug Resistant Organisms: MRSA Date of last positivie culture/infection: 10/09/24 MDRO Source:: buttock Past Surgical History: No Surgical Hx Reported Additional Past Surgical History / Comment(s): cyst removed from buttocks two years ago, cystoscopy with right ureteroscopy and holmium laser lithotripsy on 09/19/2020 Past Anesthesia/Blood Transfusion Reactions: No Reported Reaction Past Psychological History: No Psychological Hx Reported Smoking Status: Current every day smoker Past Alcohol Use History: Heavy Past Drug Use History: Marijuana - Past Family History Mother Family Medical History: No Reported History General Exam Eye exam: Present: normal appearance, PERRL, EOMI. Absent: scleral icterus, conjunctival injection, periorbital swelling ENT exam: Present: normal exam, mucous membranes moist Neck exam: Present: normal inspection. Absent: tenderness, meningismus, lymphadenopathy Respiratory exam: Present: normal lung sounds bilaterally. Absent: respiratory distress, wheezes, rales, rhonchi, stridor Cardiovascular Exam: Present: regular rate, normal rhythm, normal heart sounds. Absent: systolic murmur, diastolic murmur, rubs, gallop, clicks GI/Abdominal exam: Present: soft, tenderness (epigasatric), normal bowel sounds. Absent: distended, guarding, rebound, rigid Extremities exam: Present: normal inspection, full ROM, normal capillary refill. Absent: tenderness, pedal edema, joint swelling, calf tenderness Back exam: Present: normal inspection. Absent: CVA tenderness (R), CVA tenderness (L) Course Vital Signs 01/13/25 01/13/25 01/13/25 06:47 07:40 08:21 Temperature 98.5 F Pulse Rate 133 H 122 H 112 H Respiratory 19 16 17 Rate Blood Pressure 153/114 141/107 O2 Sat by Pulse 97 97 Oximetry 01/13/25 09:49 Temperature 97.6 F Pulse Rate 104 H Respiratory 18 Rate Blood Pressure 131/92 O2 Sat by Pulse 99 Oximetry Medical Decision Making - Medical Decision Making Was pt. sent in by a medical professional or institution (, PA, [employer], urgent care, hospital, or long-term...) When possible be specific @ -No Did you speak to anyone other than the patient for history (EMS, parent, family, police, friend...)? What history was obtained from this source @ -No Did you review nursing and triage notes (agree or disagree)? Why? @ -I reviewed and agree with nursing and triage notes Were old charts reviewed (outside hosp., previous admission, EMS record, old EKG, old radiological studies, urgent care reports/EKG's, long-term records)? Report findings @ -No old charts were reviewed Differential Diagnosis (chest pain, altered mental status, abdominal pain women, abdominal pain men, vaginal bleeding, weakness, fever, dyspnea, syncope, headache, dizziness, GI bleed, back pain, seizure, CVA, palpatations, mental health, musculoskeletal)? @ -Differential Abdominal Pain Women: Appendicitis, Cholecystitis, diverticulosis, ischemic bowel, pancreatitis, hepa titis, UTI, gastroenteritis, AAA, incarcerated hernia, bowel obstruction, constipation, inflammatory bowel, hepatitis, peptic ulcer disease, splenic infarction, perforated viscus, vulvitis, ovarian torsion, PID, kidney stone, placenta abruption, this is not meant to be an all-inclusive list EKG interpreted by me (3pts min.). @ -None X-rays interpreted by me (1pt min.). @ -None done CT interpreted by me (1pt min.). @ -None done U/S interpreted by me (1pt. min.). @ -None done What testing was considered but not performed or refused? (CT, X-rays, U/S, labs)? Why? @ -None What meds were considered but not given or refused? Why? @ -None Did you discuss the management of the patient with other professionals (professionals i.e. , PA, [employer], lab, RT, psych nurse, psych social worker, plumber's helper, teacher, armoured corps officer, housing case manager)? Give summary @ -Spoke with [facility] for admission, Dr. Gaffney Was smoking cessation discussed for >3mins.? @ -No Was critical care preformed (if so, how long)? @ -No Were there social determinants of health that impacted care today? How? (Homelessness, low income, unemployed, alcoholism, drug addiction, transportation, low edu. Level, literacy, decrease access to med. care, halfway, rehab)? @ -No Was there de-escalation of care discussed even if they declined (Discuss DNR or withdrawal of care, Hospice)? DNR status @ -No What co-morbidities impacted this encounter? (DM, HTN, Smoking, COPD, CAD, Cancer, CVA, ARF, Chemo, Hep., AIDS, mental health diagnosis, sleep apnea, mo rbid obesity)? @ -None Was patient admitted / discharged? Hospital course, mention meds given and ro anahy, prescriptions, significant lab abnormalities, going to OR and other pertinent info. @ -Admitted. 30-year-old female presenting to the emergency department with complaints of epigastric abdominal pain, nausea and vomiting. Patient is tachycardic and hypertensive on arrival blood pressure 153/113 and heart rate of 133. Patient is clutching her mid abdomen on exam stating that this feels the same as when she has had pancreatitis in the past. Patient's provided with IV fluids, emesis, control. Patient is noted to have elevated lipase of 2095 and amylase of 280 in addition to a potassium of 2.8. Patient will be admitted for pain control, fluids, potassium supplementation for acute pancreatitis. Additionally, patient's urinalysis is negative for hCG. Serum alcohol 46. Pat ient will also be placed on CIWA protocol with history of alcohol abuse. Case discussed with my attending Dr. Paulino Undiagnosed new problem with uncertain prognosis? @ -No Drug Therapy requiring intensive monitoring for toxicity (Heparin, Nitro, Insulin, Cardizem)? @ -No Were any procedures done? @ -No Diagnosis/symptom? @ -hypokalemia, alcohol abuse, pancreatitis Acute, or Chronic, or Acute on Chronic? @ -acute Uncomplicated (without systemic symptoms) or Complicated (systemic symptoms)? @ -complicated Side effects of treatment? @ -No Exacerbation, Progression, or Severe Exacerbation? @ -No Poses a threat to life or bodily function? How? (Chest pain, USA, DC, pneumonia, PE, COPD, DKA, ARF, appy, cholecystitis, CVA, Diverticulitis, Homicidal, Suicidal, threat to staff... and all critical care pts) @ -No - Lab Data Result diagrams: 01/13/25 07:34 01/13/25 07:34 Lab Results 01/13/25 01/13/25 01/13/25 Range/Units 07:34 07:34 07:39 WBC 9.03 (4.50-10.00) 10*3/uL RBC 4.74 (4.10-5.20) 10*6/uL Hgb 17.3 H (12.0-15.0) g/dL Hct 44.6 (37.2-46.3) % MCV 94.1 (80.0-97.0) fL MCH 36.5 H (27.0-32.0) pg MCHC 38.8 H (32.0-37.0) g/dL Plt Count 229 (140-440) 10*3/uL MPV 9.9 (9.5-12.2) fL Immature Gran % (Auto) 0.2 % Neutrophils % 62.0 % Lymphocytes % 26.7 % Monocytes % 7.8 % Eosinophils % 3.0 % Basophils % 0.3 % Immature Gran # 0.02 (0.00-0.04) 10*3/uL Neutrophils # 5.60 (1.80-7.70) 10*3/uL Lymphocytes # 2.41 (0.90-5.00) 10*3/uL Monocytes # 0.70 (0.20-1.00) 10*3/uL Eosinophils # 0.27 (0.04-0.35) 10*3/uL Basophils # 0.03 (0.00-0.10) 10*3/uL Manual Slide Review Performed Sodium 139 (137-145) mmol/L Potassium 2.8 L (3.5-5.1) mmol/L Chloride 102 (98-107) mmol/L Carbon Dioxide 17 L (22-30) mmol/L Anion Gap 20 mmol/L BUN 8 (7-17) mg/dL Creatinine 0.69 (0.52-1.04) mg/dL Est GFR (CKD-EPI)AfAm >90 (>60 ml/min/1.73 sqM) Est GFR (CKD-EPI)NonAf >90 (>60 ml/min/1.73 sqM) Glucose 121 H (74-99) mg/dL Plasma Lactic Acid Kartik 2.4 H* (0.7-2.0) mmol/L Calcium 10.5 H (8.4-10.2) mg/dL Magnesium 1.9 (1.6-2.3) mg/dL Total Bilirubin 1.0 (0.2-1.3) mg/dL AST 59 H (14-36) U/L ALT 39 H (4-34) U/L Alkaline Phosphatase 96 (38-126) U/L Total Protein 8.9 H (6.3-8.2) g/dL Albumin 5.4 H (3.5-5.0) g/dL Amylase 280 H (30-110) U/L Lipase 2095 H (23-300) U/L Urine Color Urine Appearance (Clear) Urine pH (5.0-8.0) Ur Specific [place] (1.001-1.035) Urine Protein (Negative) Urine Glucose (UA) (Negative) Urine Ketones (Negative) Urine Blood (Negative) Urine Nitrite (Negative) Urine Bilirubin (Negative) Urine Urobilinogen (<2.0) mg/dL Ur Leukocyte Esterase (Negative) Urine RBC (0-5) /hpf Urine WBC (0-5) /hpf Ur Squamous Epith Cells (0-4) /hpf Hyaline Casts (0-2) /lpf Urine Mucus (None) /hpf Urine HCG, Qual (Not Detectd) Serum Alcohol 46 mg/dL 01/13/25 01/13/25 Range/Units 08:49 08:49 WBC (4.50-10.00) 10*3/uL RBC (4.10-5.20) 10*6/uL Hgb (12.0-15.0) g/dL Hct (37.2-46.3) % MCV (80.0-97.0) fL MCH (27.0-32.0) pg MCHC (32.0-37.0) g/dL Plt Count (140-440) 10*3/uL MPV (9.5-12.2) fL Immature Gran % (Auto) % Neutrophils % % Lymphocytes % % Monocytes % % Eosinophils % % Basophils % % Immature Gran # (0.00-0.04) 10*3/uL Neutrophils # (1.80-7.70) 10*3/uL Lymphocytes # (0.90-5.00) 10*3/uL Monocytes # (0.20-1.00) 10*3/uL Eosinophils # (0.04-0.35) 10*3/uL Basophils # (0.00-0.10) 10*3/uL Manual Slide Review Sodium (137-145) mmol/L Potassium (3.5-5.1) mmol/L Chloride (98-107) mmol/L Carbon Dioxide (22-30) mmol/L Anion Gap mmol/L BUN (7-17) mg/dL Creatinine (0.52-1.04) mg/dL Est GFR (CKD-EPI)AfAm (>60 ml/min/1.73 sqM) Est GFR (CKD-EPI)NonAf (>60 ml/min/1.73 sqM) Glucose (74-99) mg/dL Plasma Lactic Acid Kartik (0.7-2.0) mmol/L Calcium (8.4-10.2) mg/dL Magnesium (1.6-2.3) mg/dL Total Bilirubin (0.2-1.3) mg/dL AST (14-36) U/L ALT (4-34) U/L Alkaline Phosphatase (38-126) U/L Total Protein (6.3-8.2) g/dL Albumin (3.5-5.0) g/dL Amylase (30-110) U/L Lipase (23-300) U/L Urine Color Light Red Urine Appearance Cloudy H (Clear) Urine pH 7.0 (5.0-8.0) Ur Specific [place] 1.015 (1.001-1.035) Urine Protein 2+ H (Negative) Urine Glucose (UA) Negative (Negative) Urine Ketones 1+ H (Negative) Urine Blood Large H (Negative) Urine Nitrite Negative (Negative) Urine Bilirubin Negative (Negative) Urine Urobilinogen <2.0 (<2.0) mg/dL Ur Leukocyte Esterase Large H (Negative) Urine RBC >182 H (0-5) /hpf Urine WBC 79 H (0-5) /hpf Ur Squamous Epith Cells 17 H (0-4) /hpf Hyaline Casts 18 H (0-2) /lpf Urine Mucus Moderate H (None) /hpf Urine HCG, Qual Not Detected (Not Detectd) Serum Alcohol mg/dL Disposition Clinical Impression: Pancreatitis, Hypokalemia Disposition: ADMITTED IP TO THIS [facility] Condition: Stable Decision to Admit Reason: Admit from EC Decision Date: 01/13/25 Decision Time: 09:50
[2025-01-13 07:49] LABS: Basophils # (A) 0.03 10*3/uL (0.00-0.10); Basophils % (A) 0.3 %; Eosinophils # (A) 0.27 10*3/uL (0.04-0.35); HCT 44.6 % (37.2-46.3); HGB 17.3 g/dL (12.0-15.0); Lymphocytes # (A) 2.41 10*3/uL (0.90-5.00); Lymphocytes % (A) 26.7 %; MCH 36.5 pg (27.0-32.0); MCV 94.1 fL (80.0-97.0); Mean Platelet Volume 9.9 fL (9.5-12.2); Monocytes % (A) 7.8 %; Platelet Count 229 10*3/uL (140-440); RBC 4.74 10*6/uL (4.10-5.20); RDW 14.5 % (11.5-14.5); WBC 9.03 10*3/uL (4.50-10.00)
[2025-01-13] MEDS: SODIUM CHLORIDE 0.9% 1,000 ML IV SCH ×2 (07:50→11:00)
[2025-01-13] MEDS: ONDANSETRON 4 MG/2 ML VIAL IVP STA (07:50)
[2025-01-13] MEDS: HYDROmorphone 1 MG/ML 1 ML SYRINGE IVP STA (07:51)
[2025-01-13 08:01] LABS: ALT 39 U/L (4-34); AST 59 U/L (14-36); African American GFR (CKD) >90 (>60 ml/min/1.73 sqM); Albumin 5.4 g/dL (3.5-5.0); Alcohol 46 mg/dL; Alkaline Phosphatase 96 U/L (38-126); Amylase 280 U/L (30-110); Anion Gap 20 mmol/L; Blood Urea Nitrogen 8 mg/dL (7-17); Calcium 10.5 mg/dL (8.4-10.2); Carbon Dioxide 17 mmol/L (22-30); Chloride 102 mmol/L (98-107); Glucose 121 mg/dL (74-99); Magnesium 1.9 mg/dL (1.6-2.3); Non-African American GFR(CKD) >90 (>60 ml/min/1.73 sqM); Potassium 2.8 mmol/L (3.5-5.1); Sodium 139 mmol/L (137-145); Total Protein 8.9 g/dL (6.3-8.2)
[2025-01-13 08:12] LABS: MCHC 38.8 g/dL (32.0-37.0)
[2025-01-13 08:21] LABS: Lipase 2095 U/L (23-300)
[2025-01-13] MEDS: MORPHINE SULFATE 4 MG/ML SYRINGE IVP STA (08:50)
[2025-01-13] MEDS: POTASSIUM CHLORIDE 20 MEQ in WATER FOR INJECTION 1 100ML.BAG IVPB STA (09:03)
[2025-01-13 09:15] LABS: Appearance,Urine Cloudy (Clear); Bilirubin,Urine Negative (Negative); Blood,Urine Large (Negative); Color,Urine Light Red; Glucose,Urine (UA) Negative (Negative); Hyaline Casts,Urine 18 /lpf (0-2); Ketones,Urine 1+ (Negative); Leukocyte Esterase,Urine Large (Negative); Mucus,Urine Moderate /hpf; Nitrite,Urine Negative (Negative); Protein,Urine 2+ (Negative); RBC,Urine >182 /hpf (0-5); Specific Gravity,Urine 1.015 (1.001-1.035); Squamous Epithelial Cell,Urine 17 /hpf (0-4); Urobilinogen,Urine <2.0 mg/dL (<2.0); WBC,Urine 79 /hpf (0-5)
[2025-01-13] MEDS: LORazepam 1 MG/0.5 ML VIAL IV STA (09:37)
[2025-01-13] MEDS ORDERED: NALOXONE 0.4 MG/ML 1 ML VIAL IV PRN (09:48)
[2025-01-13] MEDS ORDERED: LORazepam 1 MG TAB PO PRN (09:49)
[2025-01-13] MEDS ORDERED: chlordiazePOXIDE 25 MG CAP PO PRN (09:49)
[2025-01-13] MEDS: PANTOPRAZOLE 40 MG/10 ML VIAL IV SCH (10:39)
[2025-01-13] MEDS: HYDROmorphone 1 MG/ML 1 ML SYRINGE IVP PRN (10:41)
[2025-01-13] MEDS: FOLIC ACID 1 MG TAB PO SCH (10:43)
--- NOTE | 2025-01-13 12:52 | P.HPIM ---
History of Present Illness This is a pleasant 30 years old female with past medical history of alcohol use disorder and alcoholic pancreatitis. Presents because of abdominal pain in the epigastric of 1 day duration was severe enough improved now with pain medication down to 6/10 Pain character is nonspecific per patient Patient drinks about 2 pints per week. On presentation her alcohol was elevated at 46. She smokes cigarettes without specification and she was counseled to quit she does not feel ready but she agrees to the nicotine patch. Patient denies chest pain or dyspnea. No urinary complaint. No headache dizziness weakness numbness No abdominal pain Patient vomited about 6 times yesterday and today with no blood Denies depression suicidal or homicidal ideation she is hemodynamically stable and afebrile, CBC showing concentrated sample with hemoglobin 17.3, BMP and LFT reviewed showing mild elevated liver enzymes and potassium 2.8 which has been replaced. Urinalysis suspicious for concentrated sample. Lactic acid 2.4. Lipase eleva thierry 2089 and amylase is 280 Alcohol level elevated 46 Patient currently on normal saline 50 mL/h and CIWA thiamine No imaging done in the emergency room Patient denies any signs symptoms of depression homicidal or suicidal ideation Review of Systems Review of systems CONSTITUTIONAL: No fever, no malaise, no fatigue. HEENT: No recent visual problems or hearing problems. Denied any sore throat. CARDIOVASCULAR: No orthopnea, PND, no palpitations, no syncope. PULMONARY: No shortness of breath, no cough, no hemoptysis. GASTROINTESTINAL: No diarrhea,. Normoactive bowel sounds. NEUROLOGICAL: No headaches, no weakness, no numbness. HEMATOLOGICAL: Denies any bleeding or petechiae. GENITOURINARY: Denies any burning micturition, frequency, or urgency. MUSCULOSKELETAL/RHEUMATOLOGICAL: Denies any joint pain, swelling, or any muscle pain. ENDOCRINE: Denies any polyuria or polydipsia. Past Medical History Past Medical History: Hypertension, Thyroid Disorder Additional Past Medical History / Comment(s): Hydradenitis suppertiva; Kidney stones, PANCREATITIS History of Any Multi-Drug Resistant Organisms: MRSA Date of last positivie culture/infection: 10/09/24 MDRO Source:: buttock Past Surgical History: No Surgical Hx Reported Additional Past Surgical History / Comment(s): cyst removed from buttocks two years ago, cystoscopy with right ureteroscopy and holmium laser lithotripsy on 09/19/2020 Past Anesthesia/Blood Transfusion Reactions: No Reported Reaction Past Psychological History: No Psychological Hx Reported Smoking Status: Current every day smoker Past Alcohol Use History: Heavy Past Drug Use History: Marijuana - Past Family History Mother Family Medical History: No Reported History Medications and Allergies Home Medications Medication Instructions Recorded Confirmed Type RX: amLODIPine [Norvasc] 10 mg PO DAILY 30 Days #30 tab 11/03/24 11/22/24 Rx RX: hydroCHLOROthiazide 25 mg PO DAILY 30 Days #30 tab 11/03/24 11/22/24 Rx [Hydrodiuril] RX: Ondansetron Odt [Zofran ODT] 4 mg PO Q8HR PRN #10 tab 11/12/24 11/22/24 Rx Benzoyl Peroxide Cleanser 10% 1 applic TOPICAL DAILY PRN 11/14/24 11/22/24 History RX: Pantoprazole Sodium [Protonix] 20 mg PO BID-W/MEALS 11/22/24 11/22/24 History RX: Acetaminophen Tab [Tylenol] 650 mg PO Q6HR PRN tab 11/26/24 Rx Allergies Allergy/AdvReac Type Severity Reaction Status Date / Time No Known Allergies Allergy Verified 01/13/25 07:04 Physical Exam Vitals: Vital Signs Temp Pulse Resp BP Pulse Ox 01/13/25 11:49 76 18 118/82 99 01/13/25 10:46 98 18 135/105 97 01/13/25 09:49 97.6 F 104 H 18 131/92 99 01/13/25 08:21 112 H 17 01/13/25 07:40 122 H 16 141/107 97 01/13/25 06:47 98.5 F 133 H 19 153/114 97 Intake and Output 01/12/25 01/13/25 01/13/25 22:59 06:59 14:59 Other: Weight 88.904 kg GENERAL: The patient is alert and oriented x3, not in any acute distress. Well developed, well nourished. Obese HEENT: Pupils are round and equally reacting to light. EOMI. No scleral icterus. No conjunctival pallor. Normocephalic, atraumatic. No pharyngeal erythema. No thyromegaly. CARDIOVASCULAR: S1 and S2 present. No murmurs, rubs, or gallops. PULMONARY: Chest is clear to auscultation, no wheezing , no crackles. -ABDOMEN: Soft, epigastric tenderness, no distention, normoactive bowel sounds. No palpable organomegaly. MUSCULOSKELETAL: No joint swelling or deformity. EXTREMITIES: No cyanosis, clubbing, or pedal edema. NEUROLOGICAL: Gross neurological examination did not reveal any focal deficits. SKIN: No rashes. no petechiae. Results CBC & Chem 7: 01/13/25 07:34 01/13/25 07:34 Labs: Abnormal Lab Results - Last 24 Hours (Table) 01/13/25 01/13/25 01/13/25 Range/Units 07:34 07:34 07:39 Hgb 17.3 H (12.0-15.0) g/dL MCH 36.5 H (27.0-32.0) pg MCHC 38.8 H (32.0-37.0) g/dL Potassium 2.8 L (3.5-5.1) mmol/L Carbon Dioxide 17 L (22-30) mmol/L Glucose 121 H (74-99) mg/dL Plasma Lactic Acid Kartik 2.4 H* (0.7-2.0) mmol/L Calcium 10.5 H (8.4-10.2) mg/dL AST 59 H (14-36) U/L ALT 39 H (4-34) U/L Total Protein 8.9 H (6.3-8.2) g/dL Albumin 5.4 H (3.5-5.0) g/dL Amylase 280 H (30-110) U/L Lipase 2095 H (23-300) U/L Urine Appearance (Clear) Urine Protein (Negative) Urine Ketones (Negative) Urine Blood (Negative) Ur Leukocyte Esterase (Negative) Urine RBC (0-5) /hpf Urine WBC (0-5) /hpf Ur Squamous Epith Cells (0-4) /hpf Hyaline Casts (0-2) /lpf Urine Mucus (None) /hpf 01/13/25 Range/Units 08:49 Hgb (12.0-15.0) g/dL MCH (27.0-32.0) pg MCHC (32.0-37.0) g/dL Potassium (3.5-5.1) mmol/L Carbon Dioxide (22-30) mmol/L Glucose (74-99) mg/dL Plasma Lactic Acid Kartik (0.7-2.0) mmol/L Calcium (8.4-10.2) mg/dL AST (14-36) U/L ALT (4-34) U/L Total Protein (6.3-8.2) g/dL Albumin (3.5-5.0) g/dL Amylase (30-110) U/L Lipase (23-300) U/L Urine Appearance Cloudy H (Clear) Urine Protein 2+ H (Negative) Urine Ketones 1+ H (Negative) Urine Blood Large H (Negative) Ur Leukocyte Esterase Large H (Negative) Urine RBC >182 H (0-5) /hpf Urine WBC 79 H (0-5) /hpf Ur Squamous Epith Cells 17 H (0-4) /hpf Hyaline Casts 18 H (0-2) /lpf Urine Mucus Moderate H (None) /hpf Assessment and Plan Assessment: Acute alcoholic pancreatitis Alcohol alcoholic intoxication Alcohol use disorder at risk of alcohol withdrawal Alcoholic transaminitis Hypomagnesemia and hypokalemia and Obesity with BMI of 31 Nicotine dependence Plan: Continue CIWA protocol and thiamine Continue with normal saline increased at 150 mL/h's potassium and magnesium. Bowel rest with liquid diet. Pain medication Patient encouraged to quit drinking alcohol and smokes cigarettes Labs and medication were reviewed.. Continue same treatment. Continue with symptomatic treatment. Resume home medication. Monitor labs and vitals. DVT and GI prophylaxis. Further recommendations as per clinical course of the patient DVT prophylaxis: Subcutaneous heparin GI Prophylaxis: Ppi Prognosis is guarded
[2025-01-13] MEDS: chlordiazePOXIDE 25 MG CAP PO PRN ×2 (13:29→22:51)
[2025-01-13] MEDS: ONDANSETRON 4 MG/2 ML VIAL IVP PRN (13:30)
[2025-01-13] MEDS: KETOROLAC 15 MG/ML 1 ML VIAL IVP PRN (16:24)
[2025-01-13 16:31] LABS: Magnesium 1.5 mg/dL (1.6-2.3); Potassium 3.4 mmol/L (3.5-5.1)
[2025-01-13 16:33] LABS: HCG,Qualitative Serum Not Detected
[2025-01-13] MEDS ORDERED: Potassium Replacement Protocol 1 EACH MISC MISCELLANE PRN (17:05)
[2025-01-13] MEDS: POTASSIUM CHLORIDE 10 MEQ in WATER FOR INJECTION 1 100ML.BAG IVPB SCH (17:31)
[2025-01-13] MEDS: NICOTINE 21MG/24HR PATCH TRANSDERM SCH (17:32)
[2025-01-13] MEDS: HEPARIN SODIUM,PORCINE 5,000 UNIT/ML 1 ML VIAL SQ SCH (20:26)
[2025-01-14] MEDS: METOCLOPRAMIDE 5 MG/ML 2 ML VIAL IVP ONE (04:04)
[2025-01-14 08:11] LABS: Basophils # (A) 0.02 X 10*3/uL (0.00-0.10); Basophils % (A) 0.2 %; Eosinophils # (A) 0.11 X 10*3/uL (0.04-0.35); Eosinophils % (A) 1.3 %; HCT 41.5 % (37.2-46.3); HGB 14.6 g/dL (12.0-15.0); Lymphocytes # (A) 2.34 X 10*3/uL (0.90-5.00); Lymphocytes % (A) 28.6 %; MCH 36.2 pg (27.0-32.0); MCHC 35.2 g/dL (32.0-37.0); Mean Platelet Volume 10.7 FL (9.5-12.2); Monocytes # (A) 0.55 X 10*3/uL (0.20-1.00); Monocytes % (A) 6.7 %; NRBC Per 100 WBC 0 X 10*3/uL (0.00-0.01); Neutrophils # (A) 5.13 X 10*3/uL (1.80-7.70); Platelet Count 162 X 10*3/uL (140-440); RBC 4.03 X 10*6/uL (4.10-5.20); RDW 14.7 % (11.5-14.5); WBC 8.17 X 10*3/uL (4.50-10.00)
[2025-01-14 08:25] LABS: ALT 27 U/L (8-44); AST 35 U/L (13-35); Albumin 3.9 g/dL (3.8-4.9); Albumin/Globulin Ratio 1.39 Ratio (1.60-3.17); Alkaline Phosphatase 75 U/L (41-126); Blood Urea Nitrogen 6.6 mg/dL (9.0-27.0); Calcium 8.5 mg/dL (8.7-10.3); Carbon Dioxide 21.2 mmol/L (21.6-31.8); Chloride 105 mmol/L (96-109); Globulin 2.8 g/dL (1.6-3.3); Glucose 79 mg/dL (70-110); Potassium 3.4 mmol/L (3.5-5.5); Sodium 139 mmol/L (135-145); Total Bilirubin 0.8 mg/dL (0.3-1.2); Total Protein 6.7 g/dL (6.2-8.2)
[2025-01-14] MEDS ORDERED: Potassium Replacement Protocol 1 EACH MISC MISCELLANE PRN (08:52)
[2025-01-14] MEDS: THIAMINE 100 MG TAB PO SCH (09:46)
[2025-01-14] MEDS: POTASSIUM CHLORIDE ER 20 MEQ TAB.ER PO SCH (09:46)
[2025-01-14] MEDS ORDERED: NON FORMULARY DRUG (Pantoprazole Sodium [Protonix] 20 MG Tablet) PO SCH (11:45)
[2025-01-14] MEDS: MAGNESIUM SULFATE-D5W PMX 1 GM in DEXTROSE/WATER 1 100ML.BAG IVPB SCH (12:08)
[2025-01-14] MEDS: LOSARTAN 50 MG TAB PO SCH (12:13)
[2025-01-14] MEDS: ONDANSETRON 4 MG/2 ML VIAL IVP PRN (13:58)
[2025-01-14 18:08] VITALS: BMI 31.6
--- NOTE | 2025-01-15 00:27 | PN ---
PROGRESS NOTE DATE OF SERVICE: 01/14/2025 SUBJECTIVE: This 30-year-old woman is admitted with acute pancreatitis, possibly due to alcohol, is being closely monitored. No chest pain. No palpitations. No fever. PHYSICAL EXAMINATION: VITAL SIGNS: Pulse is 73, blood pressure 117/77, and respirations 18. CHEST: Clear to auscultation. CARDIOVASCULAR: S1, S2. ABDOMEN: Soft, mild diffuse tenderness. LEGS: No edema. NERVOUS SYSTEM: Nonfocal. SKIN: On examination of left forearm, thrombophlebitis, pressure ulcer superficial. LABORATORY DATA: Noted. ASSESSMENT: 1. Abdominal pain with acute pancreatitis, possibly secondary to alcohol intoxication. 2. Alcohol intoxication. 3. Alcoholic transaminitis. 4. Left forearm superficial thrombophlebitis. 5. Hypothyroidism. 6. History of hidradenitis suppurative and methicillin-resistant Staphylococcus aureus. RECOMMENDATIONS AND DISCUSSION: This 30-year-old woman presented with multiple complex issues. We will monitor the patient closely. Continue the current medications, pain management, CIWA protocol. Otherwise, recommend repeat labs. Guarded prognosis because of multiple complex medical issues, further recommendations, symptomatic treatment for the superficial thrombophlebitis. MMODL / IJN: [id number] /
[2025-01-15 04:01] LABS: ALT 50 U/L (4-34); African American GFR (CKD) >90 (>60 ml/min/1.73 sqM); Albumin 3.9 g/dL (3.5-5.0); Albumin/Globulin Ratio 1.3; Amylase 117 U/L (30-110); Anion Gap 9 mmol/L; Blood Urea Nitrogen 4 mg/dL (7-17); Calcium 9.2 mg/dL (8.4-10.2); Carbon Dioxide 20 mmol/L (22-30); Chloride 107 mmol/L (98-107); Glucose 73 mg/dL (74-99); Non-African American GFR(CKD) >90 (>60 ml/min/1.73 sqM); Sodium 136 mmol/L (137-145); Total Bilirubin 1.2 mg/dL (0.2-1.3); Total Protein 6.9 g/dL (6.3-8.2)
[2025-01-15 04:12] LABS: AST 133 U/L (14-36); Alkaline Phosphatase 78 U/L (38-126)
--- NOTE | 2025-01-15 08:30 | XR ---
EXAMINATION TYPE: XR chest 1V portable DATE OF EXAM: 01/15/2025 6:44 AM COMPARISON: Chest radiographs from 10/27/2024 CLINICAL INDICATION: Female, 30 years old with history of chf; [facility] TECHNIQUE: XR chest 1V portable Frontal view of the chest. FINDINGS: Lungs/Pleura: There is no evidence of pleural effusion, focal consolidation, or pneumothorax. Pulmonary vascularity: Unremarkable. Heart/mediastinum: Cardiomediastinal silhouette is unremarkable. Musculoskeletal: No acute osseous pathology. IMPRESSION: No acute cardiopulmonary disease/process. [facility], , 01/15/2025 8:27 AM
[2025-01-15 10:46] LABS: Basophils # (A) 0.03 X 10*3/uL (0.00-0.10); Basophils % (A) 0.4 %; Eosinophils # (A) 0.18 X 10*3/uL (0.04-0.35); Eosinophils % (A) 2.6 %; HCT 39.9 % (37.2-46.3); HGB 14.1 g/dL (12.0-15.0); Lymphocytes # (A) 1.81 X 10*3/uL (0.90-5.00); Lymphocytes % (A) 26.3 %; MCH 36.2 pg (27.0-32.0); MCHC 35.3 g/dL (32.0-37.0); MCV 102.6 FL (80.0-97.0); Mean Platelet Volume 11.1 FL (9.5-12.2); Monocytes # (A) 0.44 X 10*3/uL (0.20-1.00); Monocytes % (A) 6.4 %; NRBC Per 100 WBC 0 X 10*3/uL (0.00-0.01); Neutrophils # (A) 4.38 X 10*3/uL (1.80-7.70); Neutrophils % (A) 63.9 %; Platelet Count 163 X 10*3/uL (140-440); RBC 3.89 X 10*6/uL (4.10-5.20); RDW 14.7 % (11.5-14.5); WBC 6.87 X 10*3/uL (4.50-10.00)
[2025-01-15] MEDS: IOPAMIDOL CONTRAST (ORAL USE) VIAL PO PRN (12:06)
--- NOTE | 2025-01-15 14:31 | CT ---
EXAMINATION TYPE: CT abdomen pelvis wo con DATE OF EXAM: 01/15/2025 COMPARISON: 11/07/2024 CLINICAL INDICATION: Female, 30 years old with history of pancreatic pseudo cysts; [facility], PANCREATIC PS EUDO CYST TECHNIQUE: CT scan of the abdomen and pelvis is performed without oral or IV contrast. CT DLP: 727.[address] CTDI: mGy Automated exposure control for dose reduction was used. FINDINGS: Within the limitations of a non-contrast study, the following observations are made. The lungs are clear. There is no gallstone, wall thickening or distention. There is mild pericholecystic fluid which is de veloped in the interval. There is no biliary ductal dilatation. There is no organomegaly of the liver, pancreas, spleen or adrenal glands. Inflammatory changes in th e peripancreatic fat has resolved in the interval. There is no acute pancreatitis. There is no pseudo cyst formation. There is a nonobstructing 4 mm left renal calcification.. The caliber of the abdominal aorta is normal and there is no retroperitoneal adenopathy or hemorrhage . The bowel loops are normal in caliber is no evidence of obstruction. No inflammatory changes are iden tified in the mesentery and there is no free intraperitoneal air or fluid. There is no pelvic mass, free fluid, abscess or adenopathy. The osseous structures and soft tissues are unremarkable. IMPRESSION: 1. Resolution of the peripancreatic inflammation in the prior study. 2. No evidence of acute pancreatitis. 3. No pseudocyst formation. 4. Interval development of mild pericholecystic fluid. 5. Nonobstructing 4 mm left renal calcification. [facility], , 01/15/2025 2:28 PM
[2025-01-15] MEDS: chlordiazePOXIDE 25 MG CAP PO PRN (21:01)
--- NOTE | 2025-01-15 21:53 | PN ---
PROGRESS NOTE DATE OF SERVICE: 01/15/2025 SUBJECTIVE: This 30-year-old woman was admitted with abdominal pain, pancreatitis, previous persistent edematous pancreas on the previous CAT scan. The patient still complaining of pain, 7/10 in intensity. The white count 6.87. The patient has abnormal urine also. PAST MEDICAL HISTORY: Reviewed. REVIEW OF SYSTEMS: A 14-point review of systems is negative except as mentioned earlier. CURRENT MEDICATIONS: Reviewed. PHYSICAL EXAMINATION: VITAL SIGNS: Pulse is 57, blood pressure 125/80, and respirations 15. HEENT: Conjunctivae normal. NECK: No JVD. CARDIOVASCULAR: S1, S2. RESPIRATIONS: Decreased breath sounds in the bases. ABDOMEN: Soft, mild diffuse tenderness present. LEGS: No edema. NERVOUS SYSTEM: Nonfocal. LABORATORY DATA: Reviewed. ASSESSMENT: 1. Abdominal pain with acute pancreatitis, possibly secondary to alcohol intoxication. 2. Alcohol intoxication. 3. Alcoholic transaminitis. 4. History of edematous pancreas recently. 5. Rule out urinary tract infection. 6. Left forearm superficial thrombophlebitis. 7. Hypothyroidism. 8. History of hidradenitis suppurative and methicillin-resistant Staphylococcus aureus. RECOMMENDATIONS AND DISCUSSION: I recommend to continue current management. I would recommend was empiric antibiotics, cultures, serum procalcitonin. Also, I would recommend CT scan of the abdomen and pelvis to ensure resolution of the pancreatitis and to rule out the possibility of pancreatic cyst in view of the patient's persistently high pain around 8/10. Otherwise, we will continue with clear liquids and further recommendations to follow. Cut down the IV fluids. MMODL / IJN: [id number] /
[2025-01-16 08:05] LABS: Basophils # (A) 0.03 X 10*3/uL (0.00-0.10); Basophils % (A) 0.4 %; Eosinophils # (A) 0.21 X 10*3/uL (0.04-0.35); Eosinophils % (A) 3.1 %; HCT 41.3 % (37.2-46.3); HGB 14.3 g/dL (12.0-15.0); Lymphocytes # (A) 1.86 X 10*3/uL (0.90-5.00); Lymphocytes % (A) 27.5 %; MCHC 34.6 g/dL (32.0-37.0); Mean Platelet Volume 10.4 FL (9.5-12.2); Monocytes # (A) 0.47 X 10*3/uL (0.20-1.00); NRBC Per 100 WBC 0 X 10*3/uL (0.00-0.01); Neutrophils # (A) 4.17 X 10*3/uL (1.80-7.70); Neutrophils % (A) 61.7 %; Platelet Count 180 X 10*3/uL (140-440); RBC 3.97 X 10*6/uL (4.10-5.20); RDW 14.8 % (11.5-14.5); WBC 6.76 X 10*3/uL (4.50-10.00)
[2025-01-16 08:32] LABS: Amylase 151 U/L (23-121); Lipase 50 U/L (14-63)
[2025-01-16 08:46] LABS: ALT 62 U/L (8-44); AST 114 U/L (13-35); Alkaline Phosphatase 73 U/L (41-126); BUN/Creat Ratio 6.33 Ratio (12.00-20.00); Blood Urea Nitrogen 3.8 mg/dL (9.0-27.0); Carbon Dioxide 24.4 mmol/L (21.6-31.8); Chloride 105 mmol/L (96-109); Globulin 2.5 g/dL (1.6-3.3); Glucose 82 mg/dL (70-110); Potassium 3.5 mmol/L (3.5-5.5); Sodium 141 mmol/L (135-145); Total Bilirubin 0.7 mg/dL (0.3-1.2); Total Protein 6.5 g/dL (6.2-8.2)
[2025-01-16] MEDS: MORPHINE SULFATE 4 MG/ML SYRINGE IV PRN (23:40)
--- NOTE | 2025-01-17 05:24 | PN ---
PROGRESS NOTE DATE OF SERVICE: 01/16/2025 This is a 30-year-old woman who was admitted with abdominal pain, had pancreatitis with edematous pancreas, but the latest CT scan did not show any abnormality in the pancreas. The amylase and lipase also diminishing at this time. Procalcitonin is negative. I will stop the antibiotics. PHYSICAL EXAMINATION: VITAL SIGNS: Pulse is 56, blood pressure 124/88, respirations 15. CHEST: A few scattered rhonchi. ABDOMEN: Soft. Mild diffuse discomfort. No guarding. No mass palpable. LEGS: No edema. LABORATORY DATA: Reviewed. ASSESSMENT: 1. Abdominal pain with acute severe pancreatitis possibly secondary to alcohol intoxication. 2. Alcoholic intoxication. 3. Alcoholic transaminitis. 4. History of edematous pancreas previously. 5. UTI ruled out. 6. Left forearm superficial thrombophlebitis. 7. Hypothyroidism. 8. History of hidradenitis suppurativa and MRSA. RECOMMENDATIONS AND DISCUSSION: I recommend to continue current management and repeat labs and advance diet. Stop antibiotics and stop the IV fluids. Repeat labs tomorrow. Guarded prognosis. Further recommendations to follow. MMODL / IJN: [id number] /
[2025-01-17] MEDS: PANTOPRAZOLE 40 MG TABLET PO SCH (06:09)
[2025-01-17 07:54] VITALS: BP 128/81; PULSE 59; RESP 18; TEMP 97.7
[2025-01-17] MEDS: ACETAMINOPHEN TAB 325 MG TAB PO PRN (12:03)
== END 2025-01-17 13:08 | disposition home or self-care (01) | DRG 282 ==
LOC: EC 06:46 → 5NMEDONC 09:48 → OBSVTOIN 09:49 → 5NMEDONC 11:30 → 4SSUR 13:10
PROVIDERS: ADMIT Internal Medicine; ATTEND Internal Medicine
DX: K85.20 Alcohol induced acute pancreatitis without necrosis or infection (principal); I80.8 Phlebitis and thrombophlebitis of other sites; Y90.2 Blood alcohol level of 40-59 mg/100 ml; F17.210 Nicotine dependence, cigarettes, uncomplicated; E87.6 Hypokalemia; E83.42 Hypomagnesemia; R74.01 Elevation of levels of liver transaminase levels; R82.90 Unspecified abnormal findings in urine; E03.9 Hypothyroidism, unspecified; E87.20 Acidosis, unspecified; E66.9 Obesity, unspecified; F10.129 Alcohol abuse with intoxication, unspecified; I10 Essential (primary) hypertension; Z68.31 Body mass index [BMI] 31.0-31.9, adult; Z79.899 Other long term (current) drug therapy; Z87.442 Personal history of urinary calculi; Z71.41 Alcohol abuse counseling and surveillance of alcoholic; Z28.310 Unvaccinated for COVID-19
CPT/HCPCS: 36415; 71045; 74176; 80053; 80320; 81001; 81025; 82150; 83605; 83690; 83735; 84132; 84145; 84703; 85025; 87040; 96361; 96365; 96366; 96375; 99285

== ENCOUNTER 2025-02-10 00:21 | Inpatient (IN) | payer OTHER ==
--- NOTE | 2025-02-10 00:35 | ED ---
Abdominal Pain HPI - General Source: patient, EMS, RN notes reviewed Mode of arrival: EMS Limitations: no limitations - History of Present Illness MD Complaint: abdominal pain Onset/Timin -: hour(s) Location: epigastric Radiation: bilateral flank Migration to: no migration Severity scale (1-10): 10 Consistency: constant Associated Symptoms: nausea, vomiting <Mikhail Jaquez - Last Filed: 02/10/25 04:05> - General Source: patient, EMS, RN notes reviewed, old records reviewed Mode of arrival: EMS Limitations: no limitations <Philippe Thomas - Last Filed: 02/11/25 02:32> - General Chief Complaint: Abdominal Pain Stated Complaint: abd pain Time Seen by Provider: 02/10/25 00:30 - History of Present Illness Initial Comments: This is a 30-year-old female with history including hypertension, EtOH abuse, pancreatitis and kidney stones presenting for abdominal pain (05/10) occurring after lunch earlier today. Endorses mid abdominal pain that radiates superiorly with associated burning sensation and pain radiating to bilateral flanks. Endorses associated nausea/vomiting. Denies fever, chills, dizziness, chest pain, dyspnea, hematemesis, hematochezia, melena, dysuria, hematuria. (Mikhail Jaquez) 30 female to ER history of diabetes mellitus kidney stones with severe abdominal pain with nausea vomiting (Philippe Thomas) - Related Data Home Medications Medication Instructions Recorded Confirmed Benzoyl Peroxide Cleanser 10% 1 applic TOPICAL DAILY PRN 11/14/24 02/10/25 Ibuprofen [Motrin] 800 mg PO Q6H PRN 02/10/25 02/10/25 amLODIPine [Norvasc] 10 mg PO DAILY 02/10/25 02/10/25 Previous Rx's Medication Instructions Recorded hydroCHLOROthiazide [Hydrodiuril] 25 mg PO DAILY 30 Days #30 tab 11/03/24 Ondansetron Odt [Zofran ODT] 4 mg PO Q8HR PRN #10 tab 11/12/24 Acetaminophen Tab [Tylenol] 650 mg PO Q6HR PRN tab 11/26/24 Folic Acid 1 mg PO DAILY #30 tab 01/17/25 Allergies Allergy/AdvReac Type Severity Reaction Status Date / Time No Known Allergies Allergy Verified 02/10/25 10:01 Review of Systems ROS Other: All systems not noted in ROS Statement are negative. <Mikhail Jaquez - Last Filed: 02/10/25 04:05> ROS Other: All systems not noted in ROS Statement are negative. <Philippe Thomas - Last Filed: 02/11/25 02:32> ROS Statement: Those systems with pertinent positive or pertinent negative responses have been documented in the HPI. Past Medical History Past Medical History: Hypertension, Thyroid Disorder Additional Past Medical History / Comment(s): Hydradenitis suppertiva; Kidney stones, PANCREATITIS History of Any Multi-Drug Resistant Organisms: MRSA Date of last positivie culture/infection: 10/09/24 MDRO Source:: buttock Past Surgical History: No Surgical Hx Reported Additional Past Surgical History / Comment(s): cyst removed from buttocks two years ago, cystoscopy with right ureteroscopy and holmium laser lithotripsy on 09/19/2020 Past Anesthesia/Blood Transfusion Reactions: No Reported Reaction Past Psychological History: No Psychological Hx Reported Smoking Status: Current every day smoker Past Alcohol Use History: Heavy Past Drug Use History: Marijuana - Past Family History Mother Family Medical History: No Reported History <Mikhail Jaquez - Last Filed: 02/10/25 04:05> General Exam Limitations: no limitations General appearance: alert, in distress Head exam: Present: atraumatic, normocephalic, normal inspection Eye exam: Present: normal appearance, PERRL, EOMI. Absent: scleral icterus, conjunctival injection, periorbital swelling ENT exam: Present: normal exam, mucous membranes moist Neck exam: Present: normal inspection. Absent: tenderness, meningismus, lymphadenopathy Respiratory exam: Present: normal lung sounds bilaterally. Absent: respiratory distress, wheezes, rales, rhonchi, stridor, accessory muscle use, decreased breath sounds, prolonged expiratory Cardiovascular Exam: Present: regular rate, normal rhythm, normal heart sounds. Absent: systolic murmur, diastolic murmur, rubs, gallop, clicks GI/Abdominal exam: Present: soft, tenderness (Positive umbilical and epigastric tenderness with voluntary guarding.), diminished bowel sounds, hypoactive bowel sounds. Absent: distended, guarding, rebound, rigid Extremities exam: Present: normal inspection, full ROM, normal capillary refill. Absent: tenderness, pedal edema, joint swelling, calf tenderness Back exam: Present: CVA tenderness (L). Absent: CVA tenderness (R) Neurological exam: Present: alert, oriented X3, CN II-XII intact Psychiatric exam: Present: normal affect, normal mood Skin exam: Present: warm, dry, intact, normal color. Absent: rash <Mikhail Jaquez - Last Filed: 02/10/25 04:05> Course Vital Signs 02/10/25 02/10/25 02/10/25 00:22 01:55 02:30 Temperature 97.7 F Pulse Rate 112 H 87 97 Respiratory 20 18 Rate Blood Pressure 183/140 152/109 138/105 O2 Sat by Pulse 95 98 99 Oximetry 02/10/25 02/10/25 02/10/25 05:49 09:15 10:07 Temperature 97.8 F 98.1 F Pulse Rate 82 118 H 87 Respiratory 16 18 18 Rate Blood Pressure 129/101 160/110 151/104 O2 Sat by Pulse 98 98 98 Oximetry 02/10/25 02/10/25 02/10/25 12:06 15:41 16:00 Temperature 97.8 F Pulse Rate 97 97 68 Respiratory 18 18 18 Rate Blood Pressure 145/103 166/114 154/104 O2 Sat by Pulse 98 97 98 Oximetry 02/10/25 02/10/25 02/10/25 18:57 22:18 22:24 Temperature 97.8 F 97.5 F L Pulse Rate 78 84 Respiratory 18 19 Rate Blood Pressure 167/111 163/122 150/107 O2 Sat by Pulse 98 99 Oximetry Medical Decision Making - Lab Data Result diagrams: 02/10/25 00:33 02/10/25 00:33 <Mikhail Jaquez - Last Filed: 02/10/25 04:05> - Lab Data Result diagrams: 02/10/25 00:33 02/10/25 00:33 <Philippe Thomas - Last Filed: 02/11/25 02:32> - Medical Decision Making Was pt. sent in by a medical professional or institution (, PA, PARTICLE BOARD SUPERVISOR, urgent care, hospital, or [facility]...) When possible be specific @ -No Did you speak to anyone other than the patient for history (EMS, parent, family, police, friend...)? What history was obtained from this source @ -No Did you review nursing and triage notes (agree or disagree)? Why? @ -I reviewed and agree with nursing and triage notes Were old charts reviewed (outside hosp., previous admission, EMS record, old EKG, old radiological studies, urgent care reports/EKG's, [facility] records)? Report findings @ -No old charts were reviewed Differential Diagnosis (chest pain, altered mental status, abdominal pain women, abdominal pain men, vaginal bleeding, weakness, fever, dyspnea, syncope, headache, dizziness, GI bleed, back pain, seizure, CVA, palpatations, mental health, musculoskeletal)? @ -Differential Abdominal Pain Women: Appendicitis, Cholecystitis, diverticulosis, ischemic bowel, pancreatitis, hepatitis, UTI, gastroenteritis, AAA, incarcerated hernia, bowel obstruction, constipation, inflammatory bowel, hepatitis, peptic ulcer disease, splenic infarction, perforated viscus, vulvitis, ovarian torsion, PID, kidney stone, placenta abruption, this is not meant to be an all-inclusive list EKG interpreted by me (3pts min.). @ -Not done X-rays interpreted by me (1pt min.). @ -None done CT interpreted by me (1pt min.). @ -None done U/S interpreted by me (1pt. min.). @ -Gallbladder ultrasound pending What testing was considered but not performed or refused? (CT, X-rays, U/S, labs)? Why? @ -None What meds were considered but not given or refused? Why? @ -None Did you discuss the management of the patient with other professionals (p rofessionals i.e. , PA, PARTICLE BOARD SUPERVISOR, lab, RT, psych nurse, dialysis social worker, transition social worker, teacher, credit review officer, machine adjuster leader case trim)? Give summary @ -No Was smoking cessation discussed for >3mins.? @ -No Was critical care preformed (if so, how long)? @ -No Were there social determinants of health that impacted care today? How? (Homelessness, low income, unemployed, alcoholism, drug addiction, transportation, low edu. Level, literacy, decrease access to med. care, halfway, rehab)? @ -No Was there de-escalation of care discussed even if they declined (Discuss DNR or withdrawal of care, Hospice)? DNR status @ -No What co-morbidities impacted this encounter? (DM, HTN, Smoking, COPD, CAD, Cancer, CVA, ARF, Chemo, Hep., AIDS, mental health diagnosis, sleep apnea, morbid obesity)? @ -EtOH abuse Was patient admitted / discharged? Hospital course, mention meds given and route, prescriptions, significant lab abnormalities, going to OR and other pertinent info. @ -Patient initially provided IV normal saline, Protonix, Pepcid, Reglan and Dilaudid. Lab work notable for WBC 3.96, hemoglobin 19.2. Anion gap 21, lactic acid 2.3, CO2 15. Magnesium 1.3. Glucose 141, calcium 11.0, amylase 123. Elevated transaminase and bilirubin as well as protein/albumin. Normal kidney function. Contaminated UA shows large leukocyte esterase and WBC. Patient notes relief of nausea but notes ongoing abdominal pain. Additional normal saline, Dilaudid and Ativan provided. Patient's states she is agreeable to admission. Provided p.o. and IV magnesium, additional Ativan and IVPB Rocephin. Will admit through EM. Discussed patient with Dr. Thomas. Undiagnosed new problem with uncertain prognosis? @ -No Drug Therapy requiring intensive monitoring for toxicity (Heparin, Nitro, Insulin, Cardizem)? @ -No Were any procedures done? @ -No Diagnosis/symptom? @ -Metabolic acidosis, hypomagnesemia, elevated LFTs Acute, or Chronic, or Acute on Chronic? @ -Acute Uncomplicated (without systemic symptoms) or Complicated (systemic symptoms)? @ -Complicated Side effects of treatment? @ -No Exacerbation, Progression, or Severe Exacerbation? @ -No Poses a threat to life or bodily function? How? (Chest pain, USA, VT, pneumonia, PE, COPD, DKA, ARF, appy, cholecystitis, CVA, Diverticulitis, Homicidal, Suic idal, threat to staff... and all critical care pts) @ -No (Mikhail Jaquez) 30 female to be admitted for acute nausea vomiting persistent nausea vomiting here in the ER without improvement (Philippe Thomas) - Lab Data Lab Results 02/10/25 02/10/25 02/10/25 Range/Units 00:33 00:33 00:33 WBC 13.96 H (4.50-10.00) 10*3/uL RBC 5.20 (4.10-5.20) 10*6/uL Hgb 19.2 H* (12.0-15.0) g/dL Hct 50.3 H (37.2-46.3) % MCV 96.7 (80.0-97.0) fL MCH 36.9 H (27.0-32.0) pg MCHC 38.2 H (32.0-37.0) g/dL Plt Count 227 (140-440) 10*3/uL MPV 9.8 (9.5-12.2) fL Immature Gran % (Auto) 0.4 % Neutrophils % 70.5 % Lymphocytes % 18.3 % Monocytes % 9.0 % Eosinophils % 1.4 % Basophils % 0.4 % Immature Gran # 0.05 H (0.00-0.04) 10*3/uL Neutrophils # 9.86 H (1.80-7.70) 10*3/uL Lymphocytes # 2.55 (0.90-5.00) 10*3/uL Monocytes # 1.25 H (0.20-1.00) 10*3/uL Eosinophils # 0.19 (0.04-0.35) 10*3/uL Basophils # 0.06 (0.00-0.10) 10*3/uL Sodium 138 (137-145) mmol/L Potassium 3.9 (3.5-5.1) mmol/L Chloride 102 (98-107) mmol/L Carbon Dioxide 15 L (22-30) mmol/L Anion Gap 21 mmol/L BUN 9 (7-17) mg/dL Creatinine 0.77 (0.52-1.04) mg/dL Est GFR (CKD-EPI)AfAm >90 (>60 ml/min/1.73 sqM) Est GFR (CKD-EPI)NonAf >90 (>60 ml/min/1.73 sqM) Glucose 141 H (74-99) mg/dL Lactic Ac Sepsis Rflx Plasma Lactic Acid Kartik 2.3 H* (0.7-2.0) mmol/L Calcium 11.0 H (8.4-10.2) mg/dL Magnesium 1.3 L (1.6-2.3) mg/dL Total Bilirubin 1.7 H (0.2-1.3) mg/dL AST 136 H (14-36) U/L ALT 91 H (4-34) U/L Alkaline Phosphatase 114 (38-126) U/L Total Protein 9.3 H (6.3-8.2) g/dL Albumin 5.4 H (3.5-5.0) g/dL Amylase 123 H (30-110) U/L Lipase 142 (23-300) U/L Urine Color Urine Appearance (Clear) Urine pH (5.0-8.0) Ur Specific [place] (1.001-1.035) Urine Protein (Negative) Urine Glucose (UA) (Negative) Urine Ketones (Negative) Urine Blood (Negative) Urine Nitrite (Negative) Urine Bilirubin (Negative) Urine Urobilinogen (<2.0) mg/dL Ur Leukocyte Esterase (Negative) Urine RBC (0-5) /hpf Urine WBC (0-5) /hpf Ur Squamous Epith Cells (0-4) /hpf Hyaline Casts (0-2) /lpf Urine Mucus (None) /hpf Urine HCG, Qual (Not Detectd) 02/10/25 02/10/25 02/10/25 Range/Units 00:58 00:58 01:10 WBC (4.50-10.00) 10*3/uL RBC (4.10-5.20) 10*6/uL Hgb (12.0-15.0) g/dL Hct (37.2-46.3) % MCV (80.0-97.0) fL MCH (27.0-32.0) pg MCHC (32.0-37.0) g/dL Plt Count (140-440) 10*3/uL MPV (9.5-12.2) fL Immature Gran % (Auto) % Neutrophils % % Lymphocytes % % Monocytes % % Eosinophils % % Basophils % % Immature Gran # (0.00-0.04) 10*3/uL Neutrophils # (1.80-7.70) 10*3/uL Lymphocytes # (0.90-5.00) 10*3/uL Monocytes # (0.20-1.00) 10*3/uL Eosinophils # (0.04-0.35) 10*3/uL Basophils # (0.00-0.10) 10*3/uL Sodium (137-145) mmol/L Potassium (3.5-5.1) mmol/L Chloride (98-107) mmol/L Carbon Dioxide (22-30) mmol/L Anion Gap mmol/L BUN (7-17) mg/dL Creatinine (0.52-1.04) mg/dL Est GFR (CKD-EPI)AfAm (>60 ml/min/1.73 sqM) Est GFR (CKD-EPI)NonAf (>60 ml/min/1.73 sqM) Glucose (74-99) mg/dL Lactic Ac Sepsis Rflx Y Plasma Lactic Acid Kartik (0.7-2.0) mmol/L Calcium (8.4-10.2) mg/dL Magnesium (1.6-2.3) mg/dL Total Bilirubin (0.2-1.3) mg/dL AST (14-36) U/L ALT (4-34) U/L Alkaline Phosphatase (38-126) U/L Total Protein (6.3-8.2) g/dL Albumin (3.5-5.0) g/dL Amylase (30-110) U/L Lipase (23-300) U/L Urine Color Light Red Urine Appearance Cloudy H (Clear) Urine pH 6.0 (5.0-8.0) Ur Specific [place] 1.032 (1.001-1.035) Urine Protein 2+ H (Negative) Urine Glucose (UA) Negative (Negative) Urine Ketones 1+ H (Negative) Urine Blood Trace H (Negative) Urine Nitrite Negative (Negative) Urine Bilirubin 1+ H (Negative) Urine Urobilinogen 3.0 (<2.0) mg/dL Ur Leukocyte Esterase Large H (Negative) Urine RBC 5 (0-5) /hpf Urine WBC 101 H (0-5) /hpf Ur Squamous Epith Cells 64 H (0-4) /hpf Hyaline Casts 368 H (0-2) /lpf Urine Mucus Moderate H (None) /hpf Urine HCG, Qual Not Detected (Not Detectd) 02/10/25 Range/Units 03:33 WBC (4.50-10.00) 10*3/uL RBC (4.10-5.20) 10*6/uL Hgb (12.0-15.0) g/dL Hct (37.2-46.3) % MCV (80.0-97.0) fL MCH (27.0-32.0) pg MCHC (32.0-37.0) g/dL Plt Count (140-440) 10*3/uL MPV (9.5-12.2) fL Immature Gran % (Auto) % Neutrophils % % Lymphocytes % % Monocytes % % Eosinophils % % Basophils % % Immature Gran # (0.00-0.04) 10*3/uL Neutrophils # (1.80-7.70) 10*3/uL Lymphocytes # (0.90-5.00) 10*3/uL Monocytes # (0.20-1.00) 10*3/uL Eosinophils # (0.04-0.35) 10*3/uL Basophils # (0.00-0.10) 10*3/uL Sodium (137-145) mmol/L Potassium (3.5-5.1) mmol/L Chloride (98-107) mmol/L Carbon Dioxide (22-30) mmol/L Anion Gap mmol/L BUN (7-17) mg/dL Creatinine (0.52-1.04) mg/dL Est GFR (CKD-EPI)AfAm (>60 ml/min/1.73 sqM) Est GFR (CKD-EPI)NonAf (>60 ml/min/1.73 sqM) Glucose (74-99) mg/dL Lactic Ac Sepsis Rflx Plasma Lactic Acid Kartik 1.1 (0.7-2.0) mmol/L Calcium (8.4-10.2) mg/dL Magnesium (1.6-2.3) mg/dL Total Bilirubin (0.2-1.3) mg/dL AST (14-36) U/L ALT (4-34) U/L Alkaline Phosphatase (38-126) U/L Total Protein (6.3-8.2) g/dL Albumin (3.5-5.0) g/dL Amylase (30-110) U/L Lipase (23-300) U/L Urine Color Urine Appearance (Clear) Urine pH (5.0-8.0) Ur Specific [place] (1.001-1.035) Urine Protein (Negative) Urine Glucose (UA) (Negative) Urine Ketones (Negative) Urine Blood (Negative) Urine Nitrite (Negative) Urine Bilirubin (Negative) Urine Urobilinogen (<2.0) mg/dL Ur Leukocyte Esterase (Negative) Urine RBC (0-5) /hpf Urine WBC (0-5) /hpf Ur Squamous Epith Cells (0-4) /hpf Hyaline Casts (0-2) /lpf Urine Mucus (None) /hpf Urine HCG, Qual (Not Detectd) Disposition Time of Disposition: 03:15 Decision Date: 02/10/25 Decision Time: 03:15 <Mikhail Jaquez - Last Filed: 02/10/25 04:05> Is patient prescribed a controlled substance at d/c from ED?: No <Philippe Thomas - Last Filed: 02/11/25 02:32> Clinical Impression: Metabolic acidosis, Hypomagnesemia, Abdominal pain, Nausea & vomiting Disposition: ADMITTED IP TO THIS HOSP Condition: Fair
[2025-02-10 00:41] LABS: Basophils # (A) 0.06 10*3/uL (0.00-0.10); Basophils % (A) 0.4 %; Eosinophils # (A) 0.19 10*3/uL (0.04-0.35); Eosinophils % (A) 1.4 %; HCT 50.3 % (37.2-46.3); Lymphocytes # (A) 2.55 10*3/uL (0.90-5.00); Lymphocytes % (A) 18.3 %; MCH 36.9 pg (27.0-32.0); MCV 96.7 fL (80.0-97.0); Monocytes # (A) 1.25 10*3/uL (0.20-1.00); Monocytes % (A) 9.0 %; Neutrophils # (A) 9.86 10*3/uL (1.80-7.70); Neutrophils % (A) 70.5 %; Platelet Count 227 10*3/uL (140-440); RBC 5.20 10*6/uL (4.10-5.20); RDW 15.0 % (11.5-14.5); WBC 13.96 10*3/uL (4.50-10.00)
[2025-02-10] MEDS: HYDROmorphone 1 MG/ML 1 ML SYRINGE IVP STA ×2 (00:42→01:50)
[2025-02-10] MEDS: SODIUM CHLORIDE 0.9% 1,000 ML IV ONE (00:42)
[2025-02-10] MEDS: FAMOTIDINE 20 MG/2 ML VIAL IV STA (00:45)
[2025-02-10] MEDS: METOCLOPRAMIDE 5 MG/ML 2 ML VIAL IVP STA (00:47)
[2025-02-10 00:49] LABS: ALT 91 U/L (4-34); AST 136 U/L (14-36); African American GFR (CKD) >90 (>60 ml/min/1.73 sqM); Albumin 5.4 g/dL (3.5-5.0); Alkaline Phosphatase 114 U/L (38-126); Amylase 123 U/L (30-110); Anion Gap 21 mmol/L; Blood Urea Nitrogen 9 mg/dL (7-17); Calcium 11.0 mg/dL (8.4-10.2); Carbon Dioxide 15 mmol/L (22-30); Chloride 102 mmol/L (98-107); Glucose 141 mg/dL (74-99); Lipase 142 U/L (23-300); Magnesium 1.3 mg/dL (1.6-2.3); Non-African American GFR(CKD) >90 (>60 ml/min/1.73 sqM); Potassium 3.9 mmol/L (3.5-5.1); Sodium 138 mmol/L (137-145); Total Protein 9.3 g/dL (6.3-8.2)
[2025-02-10] MEDS: PANTOPRAZOLE 40 MG/10 ML VIAL IVP STA (00:49)
[2025-02-10 01:12] LABS: MCHC 38.2 g/dL (32.0-37.0)
[2025-02-10 01:15] LABS: HGB 19.2 g/dL (12.0-15.0)
[2025-02-10 01:18] LABS: Bilirubin,Urine 1+ (Negative); Blood,Urine Trace (Negative); Color,Urine Light Red; Glucose,Urine (UA) Negative (Negative); Hyaline Casts,Urine 368 /lpf (0-2); Ketones,Urine 1+ (Negative); Leukocyte Esterase,Urine Large (Negative); Mucus,Urine Moderate /hpf; Nitrite,Urine Negative (Negative); PH, Urine 6.0 (5.0-8.0); Protein,Urine 2+ (Negative); RBC,Urine 5 /hpf (0-5); Specific Gravity,Urine 1.032 (1.001-1.035); Squamous Epithelial Cell,Urine 64 /hpf (0-4); Urobilinogen,Urine 3.0 mg/dL (<2.0); WBC,Urine 101 /hpf (0-5)
[2025-02-10] MEDS: LORazepam 1 MG/0.5 ML VIAL IV STA ×2 (01:51→03:45)
[2025-02-10] MEDS: SODIUM CHLORIDE 0.9% 1,000 ML IV STA (01:53)
[2025-02-10] MEDS: MAGNESIUM OXIDE 400 MG TAB PO STA ×2 (03:45)
[2025-02-10] MEDS: MAGNESIUM SULFATE-D5W PMX 1 GM in DEXTROSE/WATER 1 100ML.BAG IVPB SCH (04:20)
--- NOTE | 2025-02-10 04:26 | US ---
EXAM: US Abdomen Limited, Gallbladder CLINICAL HISTORY: ITS.REASON US Reason: Abdominal pain, nausea/vomiting TECHNIQUE: Real-time ultrasound of the right upper quadrant with image documentation. COMPARISON: Gallbladder ultrasound on 12/12/2024 FINDINGS: Liver: Liver measures 16.8 cm. Normal echogenicity and contour. No focal lesion. No intrahepatic bile duct dilation. Gallbladder: No gallstones or sludge. No gallbladder wall thickening or pericholecystic fluid. Patient reportedly in severe pain before the exam. Common bile duct: Unremarkable as visualized. No stones. No dilation. Normal common bile duct measuring 4.5 mm. Pancreas: Visualized portions of the pancreas are grossly unremarkable. Right kidney: Right kidney measures 11.1 cm in length. No hydronephrosis or stone. Aorta: Visualized portions of the abdominal aorta are grossly unremarkable. Inferior vena cava: Visualized portions of the IVC are grossly unremarkable. Portal vein: Patent with normal direction of flow. Free fluid: No ascites. IMPRESSION: No acute abnormality.
[2025-02-10] MEDS ORDERED: NALOXONE 0.4 MG/ML 1 ML VIAL IV PRN (04:27)
[2025-02-10] MEDS: DEXTROSE 5%-0.45% NACL 1,000 ML IV SCH (05:21)
[2025-02-10] MEDS: HYDROmorphone 1 MG/ML 1 ML SYRINGE IVP PRN (05:47)
[2025-02-10] MEDS: ONDANSETRON 4 MG/2 ML VIAL IVP PRN (09:00)
[2025-02-10] MEDS: PANTOPRAZOLE 40 MG/10 ML VIAL IV SCH (09:05)
[2025-02-10] MEDS: MAGNESIUM OXIDE 400 MG TAB PO SCH (09:06)
[2025-02-10] MEDS: amLODIPine 10 MG TAB PO SCH (12:04)
--- NOTE | 2025-02-10 15:59 | P.HPIM ---
History of Present Illness H&P Date: 02/10/25 History of present illness; patient 30-year-old lady with past medical history significant for recurrent pancreatitis, alcohol abuse who presents the ER because abdominal pain. Patient stated that she was all right 1 day back and while eating lunch yesterday, she started experiencing abdominal pain that was located in the center of the abdomen, sharp, severe intensity, radiating down both flanks, no aggravating or relieving factor associated with abdominal pain. Patient was getting nausea and vomiting at the time as well. Denies any fever or chills. There is no complaint of altered bowel movements. Patient any blood in the stools. There is no complaint of chest pain. There is no complaint of shortness of breath. Patient denies any palpitation. There is no complaint of orthopnea or PND. Denies any nausea, vomiting abdominal pain. Patient denies any complaint of dizziness. There is no complaint of headache. Because abdominal pain, patient came to the ER Initial lab work done in the ER showed WBC 13.96, hemoglobin 19.2, platelet count 227, sodium 1 3, potassium 3.9, BUN 9, creatinine 0.77, lactate 2.3, calcium 11, magnesium 1.3, bilirubin 1.7, AST 136, ALT 91, amylase 123 Patient admitted to internal medicine service REVIEW OF SYSTEMS: CONSTITUTIONAL: No fever, no malaise, no fatigue. HEENT: No recent visual problems or hearing problems. Denied any sore throat. CARDIOVASCULAR: No chest pain, orthopnea, PND, no palpitations, no syncope. PULMONARY: No shortness of breath, no cough, no hemoptysis. GASTROINTESTINAL: Mentioned above NEUROLOGICAL: No headaches, no weakness, no numbness. HEMATOLOGICAL: Denies any bleeding or petechiae. GENITOURINARY: Complaining of pain in the suprapubic area MUSCULOSKELETAL/RHEUMATOLOGICAL: Denies any joint pain, swelling, or any muscle pain. ENDOCRINE: Denies any polyuria or polydipsia. The rest of the 14-point review of systems is negative. PHYSICAL EXAMINATION: GENERAL: The patient is alert and oriented x3, not in any acute distress. Well developed, well nourished. HEENT: Pupils are round and equally reacting to light. EOMI. No scleral icterus. No conjunctival pallor. Normocephalic, atraumatic. No pharyngeal erythema. No thyromegaly. CARDIOVASCULAR: S1 and S2 present. No murmurs, rubs, or gallops. PULMONARY: Chest is clear to auscultation, no wheezing or crackles. ABDOMEN: Soft, nontender, nondistended, normoactive bowel sounds. No palpable organomegaly. MUSCULOSKELETAL: No joint swelling or deformity. EXTREMITIES: No cyanosis, clubbing, or pedal edema. NEUROLOGICAL: Gross neurological examination did not reveal any focal deficits. SKIN: No rashes. Assessment and plan Abdominal pain UTI Lactic acidosis Hypocalcemia Hypomagnesemia Acute transaminitis History of pancreatitis history of alcohol abuse Monitor vital signs Monitor CBC Monitor CMP Continue telemetry monitoring Ordered urine culture Ordered pain management with as needed Dilaudid Ordered IV Rocephin Ordered IV fluids Ordered CT abdominal pelvis with contrast Consult ID Consult surgery Labs and medication were reviewed.. Continue same treatment. Continue with symptomatic treatment. Resume home medication. Monitor labs and vitals. DVT and GI prophylaxis. Further recommendations as per clinical course of the patie nt Dictation was produced using [employer] dictation software. please excuse any grammatical, word or spelling errors. Past Medical History Past Medical History: Hypertension, Thyroid Disorder Additional Past Medical History / Comment(s): Hydradenitis suppertiva; Kidney stones, PANCREATITIS History of Any Multi-Drug Resistant Organisms: MRSA Date of last positivie culture/infection: 10/09/24 MDRO Source:: buttock Past Surgical History: No Surgical Hx Reported Additional Past Surgical History / Comment(s): cyst removed from buttocks two years ago, cystoscopy with right ureteroscopy and holmium laser lithotripsy on 09/19/2020 Past Anesthesia/Blood Transfusion Reactions: No Reported Reaction Past Psychological History: No Psychological Hx Reported Smoking Status: Current every day smoker Past Alcohol Use History: Heavy Past Drug Use History: Marijuana - Past Family History Mother Family Medical History: No Reported History Medications and Allergies Home Medications Medication Instructions Recorded Confirmed Type hydroCHLOROthiazide [Hydrodiuril] 25 mg PO DAILY 30 Days #30 tab 11/03/24 02/10/25 Rx Ondansetron Odt [Zofran ODT] 4 mg PO Q8HR PRN #10 tab 11/12/24 02/10/25 Rx Benzoyl Peroxide Cleanser 10% 1 applic TOPICAL DAILY PRN 11/14/24 02/10/25 History Acetaminophen Tab [Tylenol] 650 mg PO Q6HR PRN tab 11/26/24 02/10/25 Rx Folic Acid 1 mg PO DAILY #30 tab 01/17/25 02/10/25 Rx Ibuprofen [Motrin] 800 mg PO Q6H PRN 02/10/25 02/10/25 History amLODIPine [Norvasc] 10 mg PO DAILY 02/10/25 02/10/25 History Allergies Allergy/AdvReac Type Severity Reaction Status Date / Time No Known Allergies Allergy Verified 02/10/25 10:01 Physical Exam Vitals: Vital Signs Temp Pulse Resp BP Pulse Ox 02/10/25 12:06 97 18 145/103 98 02/10/25 10:07 87 18 151/104 98 02/10/25 09:15 98.1 F 118 H 18 160/110 98 02/10/25 05:49 97.8 F 82 16 129/101 98 02/10/25 02:30 97 138/105 99 02/10/25 01:55 87 18 152/109 98 02/10/25 00:22 97.7 F 112 H 20 183/140 95 Intake and Output 02/09/25 02/10/25 02/10/25 22:59 06:59 14:59 Other: Weight 86.183 kg Results CBC & Chem 7: 02/10/25 00:33 02/10/25 00:33 Labs: Abnormal Lab Results - Last 24 Hours (Table) 02/10/25 02/10/25 02/10/25 Range/Units 00:33 00:33 00:33 WBC 13.96 H (4.50-10.00) 10*3/uL Hgb 19.2 H* (12.0-15.0) g/dL Hct 50.3 H (37.2-46.3) % MCH 36.9 H (27.0-32.0) pg MCHC 38.2 H (32.0-37.0) g/dL Immature Gran # 0.05 H (0.00-0.04) 10*3/uL Neutrophils # 9.86 H (1.80-7.70) 10*3/uL Monocytes # 1.25 H (0.20-1.00) 10*3/uL Carbon Dioxide 15 L (22-30) mmol/L Glucose 141 H (74-99) mg/dL Plasma Lactic Acid Kartik 2.3 H* (0.7-2.0) mmol/L Calcium 11.0 H (8.4-10.2) mg/dL Magnesium 1.3 L (1.6-2.3) mg/dL Total Bilirubin 1.7 H (0.2-1.3) mg/dL AST 136 H (14-36) U/L ALT 91 H (4-34) U/L Total Protein 9.3 H (6.3-8.2) g/dL Albumin 5.4 H (3.5-5.0) g/dL Amylase 123 H (30-110) U/L Urine Appearance (Clear) Urine Protein (Negative) Urine Ketones (Negative) Urine Blood (Negative) Urine Bilirubin (Negative) Ur Leukocyte Esterase (Negative) Urine WBC (0-5) /hpf Ur Squamous Epith Cells (0-4) /hpf Hyaline Casts (0-2) /lpf Urine Mucus (None) /hpf 07// Range/Units 00:58 WBC (4.50-10.00) 10*3/uL Hgb (12.0-15.0) g/dL Hct (37.2-46.3) % MCH (27.0-32.0) pg MCHC (32.0-37.0) g/dL Immature Gran # (0.00-0.04) 10*3/uL Neutrophils # (1.80-7.70) 10*3/uL Monocytes # (0.20-1.00) 10*3/uL Carbon Dioxide (22-30) mmol/L Glucose (74-99) mg/dL Plasma Lactic Acid Kartik (0.7-2.0) mmol/L Calcium (8.4-10.2) mg/dL Magnesium (1.6-2.3) mg/dL Total Bilirubin (0.2-1.3) mg/dL AST (14-36) U/L ALT (4-34) U/L Total Protein (6.3-8.2) g/dL Albumin (3.5-5.0) g/dL Amylase (30-110) U/L Urine Appearance Cloudy H (Clear) Urine Protein 2+ H (Negative) Urine Ketones 1+ H (Negative) Urine Blood Trace H (Negative) Urine Bilirubin 1+ H (Negative) Ur Leukocyte Esterase Large H (Negative) Urine WBC 101 H (0-5) /hpf Ur Squamous Epith Cells 64 H (0-4) /hpf Hyaline Casts 368 H (0-2) /lpf Urine Mucus Moderate H (None) /hpf
--- NOTE | 2025-02-10 16:43 | CT ---
EXAMINATION TYPE: CT abdomen pelvis w con DATE OF EXAM: 02/10/2025 4:19 PM COMPARISON: 01/15/2025 CLINICAL INDICATION: Female, 30 years old with history of Abdominal pain; upper abd pain TECHNIQUE: Axial CT abdomen pelvis w con;Sagittal and coronal reformats were created on a separate w orkstation. Contrast used:100 ml mL of Isovue 300 with IV Contrast, (none if empty) Oral contrast used: without Oral Contrast (none if empty) CT DLP: 1065.3 mGycm, Automated exposure control for dose reduction was used. FINDINGS: LOWER CHEST: Unremarkable ABDOMEN LIVER: Diffusely hypoattenuating parenchyma. GALLBLADDER AND BILE DUCTS: Unremarkable. PANCREAS: Fat stranding changes are seen around the pancreatic parenchyma. The parenchyma enhances un iformly. No organizing fluid collections. SPLEEN: Unremarkable. ADRENAL GLANDS: Unremarkable. KIDNEYS AND URETERS: No evidence of hydronephrosis or obstructing renal calculus. The ureters are unr emarkable. r nonobstructing left renal calculus measuring 2 mm. PELVIS BLADDER: No evidence for wall thickening or mass given limitations of exam. REPRODUCTIVE: Unremarkable. ABDOMEN & PELVIS STOMACH AND BOWEL: No evidence of bowel obstruction. PERITONEUM/RETROPERITONEUM: No evidence of pneumoperitoneum or free fluid. VASCULATURE: No evidence of aortic aneurysm. MUSCULOSKELETAL: No acute osseous abnormalities LYMPH NODES: No gross evidence for lymphadenopathy. SOFT TISSUE/ABDOMINAL WALL: Unremarkable IMPRESSION: 1. No evidence of Acute interstitial edematous pancreatitis without evidence for organizing fluid co llection. 2. Nonobstructing left renal calculus. 3. Hepatic steatosis. [facility], , 02/10/2025 4:41 PM
--- NOTE | 2025-02-10 22:23 | P.CONS ---
History of Present Illness - Reason for Consult Consult date: 02/10/25 UTI Requesting physician: Wilton Cam - Chief Complaint Abdominal pain x 1 day - History of Present Illness Patient is a 30-year-old female with a past medical history difficult for hypertension hidradenitis suppurativa kidney stones and pancreatitis current everyday smoker presenting to the hospital for evaluation of abdominal pain that started the day of presentation to the hospital patient described the pain mostly in the epigastric area describing it to be sharp moderate in intensity elevated bilateral flank areas did have associated nausea and vomiting patient denies having any fever or any chills patient did have some suprapubic discomfort on presentation to the hospital the patient was afebrile and no fever have been called subsequently patient was nontachycardic hypotensive or hypoxic she did have elevated white count of 13.96 with a left shift creatinine 0.77 lactic acid is 2.3 did have elevated liver enzymes amylase is 123 lipase 142 urine has been positive patient did have a gallbladder ultrasound no acute abnormality, patient did have abdominal pelvis CT concerning for acute distention of edematous pancreatitis without evidence of organizing fluid collection patient was started on Rocephin infectious was consulted concerning for possible UTI Review of Systems Positive point and negatives has been mentioned in the HPI, complete review of systems was performed and all other systems are negative Past Medical History Past Medical History: Hypertension, Thyroid Disorder Additional Past Medical History / Comment(s): Hydradenitis suppertiva; Kidney stones, PANCREATITIS History of Any Multi-Drug Resistant Organisms: MRSA Year Discovered:: 10/09/24 MDRO Source:: buttock Past Surgical History: No Surgical Hx Reported Additional Past Surgical History / Comment(s): cyst removed from buttocks two years ago, cystoscopy with right ureteroscopy and holmium laser lithotripsy on 09/19/2020 Past Anesthesia/Blood Transfusion Reactions: No Reported Reaction Past Psychological History: No Psychological Hx Reported Smoking Status: Current every day smoker Past Alcohol Use History: Heavy Past Drug Use History: Marijuana - Past Family History Mother Family Medical History: No Reported History Medications and Allergies Home Medications Medication Instructions Recorded Confirmed Type hydroCHLOROthiazide [Hydrodiuril] 25 mg PO DAILY 30 Days #30 tab 11/03/24 02/10/25 Rx Ondansetron Odt [Zofran ODT] 4 mg PO Q8HR PRN #10 tab 11/12/24 02/10/25 Rx Benzoyl Peroxide Cleanser 10% 1 applic TOPICAL DAILY PRN 11/14/24 02/10/25 History Acetaminophen Tab [Tylenol] 650 mg PO Q6HR PRN tab 11/26/24 02/10/25 Rx Folic Acid 1 mg PO DAILY #30 tab 01/17/25 02/10/25 Rx Ibuprofen [Motrin] 800 mg PO Q6H PRN 02/10/25 02/10/25 History amLODIPine [Norvasc] 10 mg PO DAILY 02/10/25 02/10/25 History Allergies Allergy/AdvReac Type Severity Reaction Status Date / Time No Known Allergies Allergy Verified 02/10/25 10:01 Physical Exam Vitals: Vital Signs Temp Pulse Resp BP Pulse Ox 02/10/25 12:06 97 18 145/103 98 02/10/25 10:07 87 18 151/104 98 02/10/25 09:15 98.1 F 118 H 18 160/110 98 02/10/25 05:49 97.8 F 82 16 129/101 98 02/10/25 02:30 97 138/105 99 02/10/25 01:55 87 18 152/109 98 02/10/25 00:22 97.7 F 112 H 20 183/140 95 Intake and Output 02/10/25 02/10/25 02/10/25 06:59 14:59 22:59 Other: Weight 86.183 kg GENERAL DESCRIPTION: Middle-age female lying in bed, no distress. No tachypnea or accessory muscle of respiration use. HEENT: Shows Pallor , no scleral icterus. Oral mucous membrane is dry. NECK: Trachea central, no thyromegaly. LUNGS: Unlabored breathing. Clear to auscultation anteriorly. No wheeze or crackle. HEART: S1, S2, regular rate and rhythm. No loud murmur ABDOMEN: Soft, epigastric and suprapubic tenderness EXTREMITIES: No edema of feet. SKIN: No rash, no masses palpable. NEUROLOGICAL: The patient is awake, alert, oriented x3, mood and affect normal. Results CBC & Chem 7: 02/10/25 00:33 02/10/25 00:33 Labs: Abnormal Lab Results - Last 24 Hours (Table) 02/10/25 02/10/25 02/10/25 Range/Units 00:33 00:33 00:33 WBC 13.96 H (4.50-10.00) 10*3/uL Hgb 19.2 H* (12.0-15.0) g/dL Hct 50.3 H (37.2-46.3) % MCH 36.9 H (27.0-32.0) pg MCHC 38.2 H (32.0-37.0) g/dL Immature Gran # 0.05 H (0.00-0.04) 10*3/uL Neutrophils # 9.86 H (1.80-7.70) 10*3/uL Monocytes # 1.25 H (0.20-1.00) 10*3/uL Carbon Dioxide 15 L (22-30) mmol/L Glucose 141 H (74-99) mg/dL Plasma Lactic Acid Kartik 2.3 H* (0.7-2.0) mmol/L Calcium 11.0 H (8.4-10.2) mg/dL Magnesium 1.3 L (1.6-2.3) mg/dL Total Bilirubin 1.7 H (0.2-1.3) mg/dL AST 136 H (14-36) U/L ALT 91 H (4-34) U/L Total Protein 9.3 H (6.3-8.2) g/dL Albumin 5.4 H (3.5-5.0) g/dL Amylase 123 H (30-110) U/L Urine Appearance (Clear) Urine Protein (Negative) Urine Ketones (Negative) Urine Blood (Negative) Urine Bilirubin (Negative) Ur Leukocyte Esterase (Negative) Urine WBC (0-5) /hpf Ur Squamous Epith Cells (0-4) /hpf Hyaline Casts (0-2) /lpf Urine Mucus (None) /hpf 02/10/25 Range/Units 00:58 WBC (4.50-10.00) 10*3/uL Hgb (12.0-15.0) g/dL Hct (37.2-46.3) % MCH (27.0-32.0) pg MCHC (32.0-37.0) g/dL Immature Gran # (0.00-0.04) 10*3/uL Neutrophils # (1.80-7.70) 10*3/uL Monocytes # (0.20-1.00) 10*3/uL Carbon Dioxide (22-30) mmol/L Glucose (74-99) mg/dL Plasma Lactic Acid Kartik (0.7-2.0) mmol/L Calcium (8.4-10.2) mg/dL Magnesium (1.6-2.3) mg/dL Total Bilirubin (0.2-1.3) mg/dL AST (14-36) U/L ALT (4-34) U/L Total Protein (6.3-8.2) g/dL Albumin (3.5-5.0) g/dL Amylase (30-110) U/L Urine Appearance Cloudy H (Clear) Urine Protein 2+ H (Negative) Urine Ketones 1+ H (Negative) Urine Blood Trace H (Negative) Urine Bilirubin 1+ H (Negative) Ur Leukocyte Esterase Large H (Negative) Urine WBC 101 H (0-5) /hpf Ur Squamous Epith Cells 64 H (0-4) /hpf Hyaline Casts 368 H (0-2) /lpf Urine Mucus Moderate H (None) /hpf Assessment and Plan (1) UTI (urinary tract infection) Current Visit: Yes Status: Acute Code(s): N39.0 - URINARY TRACT INFECTION, SITE NOT SPECIFIED SNOMED Code(s): 85333838 (2) Leukocytosis Current Visit: No Status: Acute Code(s): D72.829 - ELEVATED WHITE BLOOD CELL COUNT, UNSPECIFIED SNOMED Code(s): 029038446 (3) Pancreatitis Current Visit: No Status: Acute Code(s): K85.90 - ACUTE PANCREATITIS WITHOUT NECROSIS OR INFECTION, UNSP SNOMED Code(s): 11769555 Plan: 1patient presented hospital with abdominal pain in epigastric area with associate nausea vomiting more likely related to acute distention pancreatitis seen on the CT amylase lipase were not significantly elevated. 2patient also have elevated white count suprapubic pain and discomfort positive concerning for possible component of UTI likely from enteric gram-negative pathogen. 3patient empirically treated with Rocephin 2 g daily while waiting for the culture to finalize. We will follow on clinical condition and cultures to further adjust medication if needed Thank you for this consultation we will follow the patient along with you Dictation was produced using [employer] dictation software. please excuse any gr ammatical, word or spelling errors. Time with Patient: Greater than 30
[2025-02-11 06:55] LABS: Basophils # (A) 0.02 10*3/uL (0.00-0.10); Basophils % (A) 0.2 %; Eosinophils # (A) 0.08 10*3/uL (0.04-0.35); Eosinophils % (A) 0.8 %; HCT 50.8 % (37.2-46.3); HGB 18.5 g/dL (12.0-15.0); Lymphocytes # (A) 0.97 10*3/uL (0.90-5.00); Lymphocytes % (A) 9.8 %; MCH 36.7 pg (27.0-32.0); MCHC 36.4 g/dL (32.0-37.0); MCV 100.8 fL (80.0-97.0); Monocytes # (A) 0.60 10*3/uL (0.20-1.00); Monocytes % (A) 6.1 %; Neutrophils # (A) 8.18 10*3/uL (1.80-7.70); Neutrophils % (A) 82.8 %; Platelet Count 184 10*3/uL (140-440); RBC 5.04 10*6/uL (4.10-5.20); RDW 14.8 % (11.5-14.5); WBC 9.88 10*3/uL (4.50-10.00)
[2025-02-11 07:13] LABS: ALT 62 U/L (4-34); AST 71 U/L (14-36); African American GFR (CKD) >90 (>60 ml/min/1.73 sqM); Albumin 5.1 g/dL (3.5-5.0); Alkaline Phosphatase 83 U/L (38-126); Anion Gap 12 mmol/L; Blood Urea Nitrogen 4 mg/dL (7-17); Calcium 10.0 mg/dL (8.4-10.2); Carbon Dioxide 29 mmol/L (22-30); Chloride 97 mmol/L (98-107); Glucose 104 mg/dL (74-99); Magnesium 1.9 mg/dL (1.6-2.3); Non-African American GFR(CKD) >90 (>60 ml/min/1.73 sqM); Potassium 3.5 mmol/L (3.5-5.1); Sodium 138 mmol/L (137-145); Total Protein 8.6 g/dL (6.3-8.2)
--- NOTE | 2025-02-11 12:48 | P.GSCN ---
History of Present Illness Consult date: 02/11/25 History of present illness: CHIEF COMPLAINT: Abdominal pain HISTORY OF PRESENT ILLNESS: This is a 30-year-old female with a known history of alcohol abuse with pancreatitis and kidney stones. Patient presents to the ER with complaints of epigastric abdominal pain. She reports that she thought she was having another flareup of her pancreatitis. She reports that the pain radiates from the epigastric area to the back. She reports also having pain on the upper left and right upper quadrant. She complains of pain on the left side of her back as well as some discomfort in the suprapubic area. She denies any hematuria or any burning or frequency with urination. She had a CT scan abdomen and pelvis completed that did note some fat stranding changes around the pancreatic parenchyma and no organized fluid collections. Reports no evidence of acute interstitial edematous pancreatitis. Nonobstructive left renal calculus and hepatic steatosis. Gallbladder ultrasound reports no sludge or gallstones. Surgical service consulted for abdominal pain. Patient reports she has not been drinking. Patient seen by infectious disease and being treated for possible UTI. PAST MEDICAL HISTORY: See below PAST SURGICAL HISTORY: See below MEDICATIONS: See below ALLERGIES: See below SOCIAL HISTORY: No illicit drug use. REVIEW OF SYSTEMS: CONSTITUTIONAL: Denies fever or chills. HEENT: Denies blurred vision, vision changes, or eye pain. Denies hemoptysis CARDIOVASCULAR: Denies chest pain or pressure. RESPIRATORY: No shortness of breath. GASTROINTESTINAL: See HPI for pertinent findings HEMATOLOGIC: Denies bleeding disorders. GENITOURINARY: Denies any blood in urine or increased urinary frequency. SKIN: Denies pruitis. Denies rash. PHYSICAL EXAM: VITAL SIGNS: Reviewed GENERAL: Well-developed in no acute distress. HEENT: No sclera icterus. Extraocular movements grossly intact. Moist buccal mucosa. Head is atraumatic, normocephalic. No nasal drainage. ABDOMEN: Soft. Nondistended. Tenderness palpation epigastric area. Mild tenderness with palpation of the left flank. No tenderness noted in the suprapubic area on exam. NEUROLOGIC: Alert and oriented. Cranial nerves II through XII grossly intact. LABORATORY DATA: WBC 13.9 down to 9.88 Hgb 18.5 platelets 184 Sodium 138 potassium 3.5 creatinine 0.62 Lactic acid 2.3 down to 1.1 Magnesium 1.9 Total bilirubin 1.7 LFTs trending down AST 1 36-71 ALT 91-62 Alk phos 83 amylase 123 and lipase 142 IMAGING: CT scan abdomen pelvis reports no evidence of acute interstitial edematous pa ncreatitis without evidence of organizing fluid collection. Nonobstructing left renal calculus. Hepatic steatosis. Gallbladder ultrasound shows no evidence of gallstones ASSESSMENT: 1. Epigastric abdominal pain with back pain 2. Chronic pancreatitis. No evidence of gallstones on ultrasound 3. Possible UTI 4. History of EtOH use 5. Left renal calculus PLAN: - Continue clear liquid diet - Continue pain management - Continue IV fluids - Antibiotics per ID service - Continue monitor Physician Veneer Stacker note has been reviewed by physician. Signing provider agrees with the documented findings, assessment, and plan of care. Past Medical History Past Medical History: Hypertension, Thyroid Disorder Additional Past Medical History / Comment(s): Hydradenitis suppertiva; Kidney stones, PANCREATITIS History of Any Multi-Drug Resistant Organisms: MRSA Year Discovered:: 10/09/24 MDRO Source:: buttock Past Surgical History: No Surgical Hx Reported Additional Past Surgical History / Comment(s): cyst removed from buttocks two years ago, cystoscopy with right ureteroscopy and holmium laser lithotripsy on 09/19/2020 Past Anesthesia/Blood Transfusion Reactions: No Reported Reaction Past Psychological History: No Psychological Hx Reported Smoking Status: Current every day smoker Past Alcohol Use History: Occasional Additional Past Alcohol Use History / Comment(s): pt states she occasionally has 1/2 pint but is trying hard to quit Past Drug Use History: Marijuana Additional Drug Use History / Comment(s): states medical marijuana - Past Family History Mother Family Medical History: No Reported History Medications and Allergies Home Medications Medication Instructions Recorded Confirmed Type hydroCHLOROthiazide [Hydrodiuril] 25 mg PO DAILY 30 Days #30 tab 11/03/24 02/10/25 Rx Ondansetron Odt [Zofran ODT] 4 mg PO Q8HR PRN #10 tab 11/12/24 02/10/25 Rx Benzoyl Peroxide Cleanser 10% 1 applic TOPICAL DAILY PRN 11/14/24 02/10/25 History Acetaminophen Tab [Tylenol] 650 mg PO Q6HR PRN tab 11/26/24 02/10/25 Rx Folic Acid 1 mg PO DAILY #30 tab 01/17/25 02/10/25 Rx Ibuprofen [Motrin] 800 mg PO Q6H PRN 02/10/25 02/10/25 History amLODIPine [Norvasc] 10 mg PO DAILY 02/10/25 02/10/25 History Allergies Allergy/AdvReac Type Severity Reaction Status Date / Time No Known Allergies Allergy Verified 02/10/25 10:01 Surgical - Exam Vital Signs Temp Pulse Resp BP Pulse Ox 97.7 F 112 H 20 183/140 95 02/10/25 00:22 02/10/25 00:22 02/10/25 00:22 02/10/25 00:22 02/10/25 00:22 Results - Labs 02/11/25 06:11 02/11/25 06:11 Abnormal Lab Results - Last 24 Hours (Table) 02/11/25 02/11/25 Range/Units 06:11 06:11 Hgb 18.5 H (12.0-15.0) g/dL Hct 50.8 H (37.2-46.3) % MCV 100.8 H (80.0-97.0) fL MCH 36.7 H (27.0-32.0) pg Neutrophils # 8.18 H (1.80-7.70) 10*3/uL Chloride 97 L (98-107) mmol/L BUN 4 L (7-17) mg/dL Glucose 104 H (74-99) mg/dL Total Bilirubin 1.7 H (0.2-1.3) mg/dL AST 71 H (14-36) U/L ALT 62 H (4-34) U/L Total Protein 8.6 H (6.3-8.2) g/dL Albumin 5.1 H (3.5-5.0) g/dL Diabetes panel 02/11/25 Range/Units 06:11 Sodium 138 (137-145) mmol/L Potassium 3.5 (3.5-5.1) mmol/L Chloride 97 L (98-107) mmol/L Carbon Dioxide 29 (22-30) mmol/L BUN 4 L (7-17) mg/dL Creatinine 0.62 (0.52-1.04) mg/dL Glucose 104 H (74-99) mg/dL Calcium 10.0 (8.4-10.2) mg/dL AST 71 H (14-36) U/L ALT 62 H (4-34) U/L Alkaline Phosphatase 83 (38-126) U/L Total Protein 8.6 H (6.3-8.2) g/dL Albumin 5.1 H (3.5-5.0) g/dL Calcium panel 02/11/25 Range/Units 06:11 Calcium 10.0 (8.4-10.2) mg/dL Phosphorus 3.0 (2.5-4.5) mg/dL Albumin 5.1 H (3.5-5.0) g/dL Pituitary panel 02/11/25 Range/Units 06:11 Sodium 138 (137-145) mmol/L Potassium 3.5 (3.5-5.1) mmol/L Chloride 97 L (98-107) mmol/L Carbon Dioxide 29 (22-30) mmol/L BUN 4 L (7-17) mg/dL Creatinine 0.62 (0.52-1.04) mg/dL Glucose 104 H (74-99) mg/dL Calcium 10.0 (8.4-10.2) mg/dL Adrenal panel 02/11/25 Range/Units 06:11 Sodium 138 (137-145) mmol/L Potassium 3.5 (3.5-5.1) mmol/L Chloride 97 L (98-107) mmol/L Carbon Dioxide 29 (22-30) mmol/L BUN 4 L (7-17) mg/dL Creatinine 0.62 (0.52-1.04) mg/dL Glucose 104 H (74-99) mg/dL Calcium 10.0 (8.4-10.2) mg/dL Total Bilirubin 1.7 H (0.2-1.3) mg/dL AST 71 H (14-36) U/L ALT 62 H (4-34) U/L Alkaline Phosphatase 83 (38-126) U/L Total Protein 8.6 H (6.3-8.2) g/dL Albumin 5.1 H (3.5-5.0) g/dL
--- NOTE | 2025-02-11 13:51 | P.PN ---
Subjective Progress Note Date: 02/11/25 30-year-old lady with past medical history significant for recurrent pancreatitis, alcohol abuse who presents the ER because abdominal pain. Patient stated that she was all right 1 day back and while eating lunch yesterday, she started experiencing abdominal pain that was located in the center of the abd omen, sharp, severe intensity, radiating down both flanks, no aggravating or relieving factor associated with abdominal pain. Patient was getting nausea and vomiting at the time as well. Denies any fever or chills. There is no complaint of altered bowel movements. Patient any blood in the stools. There is no complaint of chest pain. There is no complaint of shortness of breath. Patient denies any palpitation. There is no complaint of orthopnea or PND. Denies any nausea, vomiting abdominal pain. Patient denies any complaint of dizziness. There is no complaint of headache. Because abdominal pain, patient came to the ER Initial lab work done in the ER showed WBC 13.96, hemoglobin 19.2, platelet count 227, sodium 1 3, potassium 3.9, BUN 9, creatinine 0.77, lactate 2.3, calcium 11, magnesium 1.3, bilirubin 1.7, AST 136, ALT 91, amylase 123 Patient admitted to internal medicine service 02/11. Patient seen and examined. Still complaining abdominal pain. Discussed with her regarding advancing diet, states she wants to try soft diet. REVIEW OF SYSTEMS: CONSTITUTIONAL: No fever, no malaise,. CARDIOVASCULAR: No chest pain, no palpitations, no syncope. PULMONARY: No shortness of breath, no cough, GASTROINTESTINAL: Mentioned above NEUROLOGICAL: No headaches, no weakness, PHYSICAL EXAMINATION: GENERAL: The patient is alert and oriented x3, not in any acute distress. Well developed, well nourished. HEENT: Pupils are round and equally reacting to light. EOMI. No scleral icterus. No conjunctival pallor. Normocephalic, atraumatic. No pharyngeal erythema. No thyromegaly. CARDIOVASCULAR: S1 and S2 present. No murmurs, rubs, or gallops. PULMONARY: Chest is clear to auscultation, no wheezing or crackles. ABDOMEN: Soft, nontender, nondistended, normoactive bowel sounds. No palpable organomegaly. MUSCULOSKELETAL: No joint swelling or deformity. EXTREMITIES: No cyanosis, clubbing, or pedal edema. NEUROLOGICAL: Gross neurological examination did not reveal any focal deficits. SKIN: No rashes. Assessment and plan Abdominal pain UTI Lactic acidosis Hypocalcemia Hypomagnesemia Acute transaminitis History of pancreatitis history of alcohol abuse Monitor vital signs Monitor CBC Monitor CMP Continue telemetry monitoring Continue pain management Continue IV Rocephin Continue IV fluids Advance diet to soft ID following Surgery following Labs and medication were reviewed.. Continue same treatment. Continue with symptomatic treatment. Resume home medication. Monitor labs and vitals. DVT and GI prophylaxis. Further recommendations as per clinical course of the patient Dictation was produced using [employer] dictation software. please excuse any grammatical, word or spelling errors. Objective - Vital Signs Vital signs: Vital Signs Temp 98.0 F 02/11/25 08:42 Pulse 84 02/11/25 11:13 Resp 17 02/11/25 11:13 BP 142/98 02/11/25 11:13 Pulse Ox 99 02/11/25 11:13 FiO2 Intake & Output 02/10/25 02/11/25 02/11/25 18:59 06:59 18:59 Intake Total 0 Balance 0 Weight 86.183 kg Intake: Oral 0 Other: Voiding Method Toilet Toilet # Voids 1 - Labs CBC & Chem 7: 02/11/25 06:11 02/11/25 06:11 Labs: Abnormal Lab Results - Last 24 Hours (Table) 02/11/25 02/11/25 Range/Units 06:11 06:11 Hgb 18.5 H (12.0-15.0) g/dL Hct 50.8 H (37.2-46.3) % MCV 100.8 H (80.0-97.0) fL MCH 36.7 H (27.0-32.0) pg Neutrophils # 8.18 H (1.80-7.70) 10*3/uL Chloride 97 L (98-107) mmol/L BUN 4 L (7-17) mg/dL Glucose 104 H (74-99) mg/dL Total Bilirubin 1.7 H (0.2-1.3) mg/dL AST 71 H (14-36) U/L ALT 62 H (4-34) U/L Total Protein 8.6 H (6.3-8.2) g/dL Albumin 5.1 H (3.5-5.0) g/dL Microbiology - Last 24 Hours (Table) 02/10/25 03:48 Blood Culture - Preliminary Blood 02/10/25 00:58 Urine Culture - Final Urine,Voided
[2025-02-11] MEDS: KETOROLAC 15 MG/ML 1 ML VIAL IVP PRN (18:36)
[2025-02-11] MEDS: ONDANSETRON 4 MG/2 ML VIAL IVP PRN (20:09)
--- NOTE | 2025-02-12 11:00 | P.PN ---
Subjective Progress Note Date: 02/12/25 SURGICAL PROGRESS NOTE CHIEF COMPLAINT: Abdominal pain HISTORY OF PRESENT ILLNESS: Patient continues to report epigastric abdominal pain that radiates to her back. She did have a couple episodes of vomiting yesterday after trying solid food and trying a lon cracker. Vomiting has improved. She reports she is going very slow now with the food. She feels that she may have started the food too fast. Patient also reports the discomfort in the suprapubic area has resolved. Afebrile. PHYSICAL EXAM: VITAL SIGNS: Reviewed. GENERAL: Well-developed in no acute distress. ABDOMEN: Soft. Nondistended. Epigastric tenderness to palpation NEUROLOGIC: Alert and oriented. Cranial nerves II through XII grossly intact. ASSESSMENT: 1. Abdominal pain 2. Chronic pancreatitis 3. UTI PLAN: - Change diet to low-fat. Educated patient to go very slow with solid food. - Continue IV fluids - Continue pain management - Antibiotics for UTI per ID service - Encourage patient to increase activity level Physician Mortgage Manager note has been reviewed by physician. Signing provider agrees with the documented findings, assessment, and plan of care. Patient seen and examined at bedside on 02/12/2025. Presented with chief complaint of abdominal pain. She states that she continues to have pain in the epigastrium, however vomiting has improved. She would like to continue to move slowly with her diet. Continue current medical management. Ama De Oliveira, Objective - Vital Signs Vital signs: Vital Signs Temp 98.1 F 02/12/25 08:43 Pulse 66 02/12/25 08:43 Resp 16 02/12/25 08:43 BP 134/86 02/12/25 08:43 Pulse Ox 100 02/12/25 08:43 FiO2 Intake & Output 02/11/25 02/12/25 02/12/25 18:59 06:59 18:59 Intake Total 0 720 Balance 0 720 Weight 84.2 kg Intake: Oral 0 720 Other: Voiding Method Toilet Toilet Toilet # Voids 3 1 1 # Bowel Movements 1 - Labs CBC & Chem 7: 02/13/25 06:10 02/13/25 06:10 Labs: Microbiology - Last 24 Hours (Table) 02/10/25 03:48 Blood Culture - Preliminary Blood 02/10/25 00:58 Urine Culture - Final Urine,Voided
--- NOTE | 2025-02-12 13:44 | P.PN ---
Subjective Progress Note Date: 02/11/25 Principal diagnosis: Reason for follow-up is leukocytosis/UTI Patient is a 30-year-old female with a past medical history difficult for hypertension hidradenitis suppurativa kidney stones and pancreatitis current everyday smoker presenting to the hospital for evaluation of abdominal pain that started the day of presentation to the hospital CT suggestive of pancreatitis she also have a positive UA some suprapubic tenderness concerning for symptomatic UTI. On today's evaluation that is 02/11/2025, patient has been afebrile, patient is breathing comfortably and is currently on room air, patient denies having any chest pain and cough, patient denies nausea vomiting or diarrhea mention abdominal pain has slightly decreased in intensity. Patient white count normalized to 9.88, creatinine 0.62 blood urine cultures currently pending Objective - Vital Signs Vital signs: Vital Signs Temp 98.6 F 02/11/25 15:27 Pulse 79 02/11/25 15:27 Resp 17 02/11/25 15:27 BP 137/85 02/11/25 15:27 Pulse Ox 100 02/11/25 15:27 FiO2 Intake & Output 02/10/25 02/11/25 02/11/25 18:59 06:59 18:59 Intake Total 0 Balance 0 Weight 86.183 kg Intake: Oral 0 Other: Voiding Method Toilet Toilet # Voids 1 - Exam GENERAL DESCRIPTION: Middle-age female lying in bed in no distress RESPIRATORY SYSTEM: Unlabored breathing , decreased breath sounds at bases HEART: S1 S2 regular rate and rhythm , ABDOMEN: Soft , no tenderness EXTREMITIES: No edema feet - Labs CBC & Chem 7: 02/11/25 06:11 02/11/25 06:11 Labs: Abnormal Lab Results - Last 24 Hours (Table) 02/11/25 02/11/25 Range/Units 06:11 06:11 Hgb 18.5 H (12.0-15.0) g/dL Hct 50.8 H (37.2-46.3) % MCV 100.8 H (80.0-97.0) fL MCH 36.7 H (27.0-32.0) pg Neutrophils # 8.18 H (1.80-7.70) 10*3/uL Chloride 97 L (98-107) mmol/L BUN 4 L (7-17) mg/dL Glucose 104 H (74-99) mg/dL Total Bilirubin 1.7 H (0.2-1.3) mg/dL AST 71 H (14-36) U/L ALT 62 H (4-34) U/L Total Protein 8.6 H (6.3-8.2) g/dL Albumin 5.1 H (3.5-5.0) g/dL Microbiology - Last 24 Hours (Table) 02/10/25 03:48 Blood Culture - Preliminary Blood 02/10/25 00:58 Urine Culture - Final Urine,Voided Assessment and Plan (1) UTI (urinary tract infection) Current Visit: Yes Status: Acute Code(s): N39.0 - URINARY TRACT INFECTION, SITE NOT SPECIFIED SNOMED Code(s): 96107914 (2) Leukocytosis Current Visit: No Status: Acute Code(s): D72.829 - ELEVATED WHITE BLOOD CELL COUNT, UNSPECIFIED SNOMED Code(s): 378733227 (3) Pancreatitis Current Visit: No Status: Acute Code(s): K85.90 - ACUTE PANCREATITIS WITHOUT NECROSIS OR INFECTION, UNSP SNOMED Code(s): 77434843 Plan: 1patient presented hospital with abdominal pain in epigastric area with associate nausea vomiting more likely related to acute distention pancreatitis seen on the CT amylase lipase were not significantly elevated. 2patient also have elevated white count suprapubic pain and discomfort positive concerning for possible component of UTI likely from enteric gram-negative pathogen. 3patient mention improvement her abdominal pain and the patient white count normalized continue with Rocephin while waiting for the culture to finalize Dictation was produced using [employer] dictation software. please excuse any grammatical, word or spelling errors. Time with Patient: Less than 30
--- NOTE | 2025-02-12 13:45 | P.PN ---
Subjective Progress Note Date: 02/12/25 Principal diagnosis: Reason for follow-up is leukocytosis/UTI Patient is a 30-year-old female with a past medical history difficult for hypertension hidradenitis suppurativa kidney stones and pancreatitis current everyday smoker presenting to the hospital for evaluation of abdominal pain that started the day of presentation to the hospital CT suggestive of pancreatitis she also have a positive UA some suprapubic tenderness concerning for symptomatic UTI. On today's evaluation that is 02/12/2025, Patient is afebrile this morning patient denies having any chest pain shortness of breath or cough, the patient is currently on room air, patient denies any nausea or vomiting however complaining of more abdominal pain no diarrhea. No new lab has been obtained today blood culture pending urine is negative so far Objective - Vital Signs Vital signs: Vital Signs Temp 98.1 F 02/12/25 08:43 Pulse 78 02/12/25 11:29 Resp 18 02/12/25 11:29 BP 145/102 02/12/25 11:29 Pulse Ox 100 02/12/25 11:29 FiO2 Intake & Output 02/11/25 02/12/25 02/12/25 18:59 06:59 18:59 Intake Total 0 720 Balance 0 720 Weight 84.2 kg Intake: Oral 0 720 Other: Voiding Method Toilet Toilet Toilet # Voids 3 1 1 # Bowel Movements 1 - Exam GENERAL DESCRIPTION: Middle-age female lying in bed in no distress RESPIRATORY SYSTEM: Unlabored breathing , decreased breath sounds at bases HEART: S1 S2 regular rate and rhythm , ABDOMEN: Soft , no tenderness EXTREMITIES: No edema feet - Labs CBC & Chem 7: 02/11/25 06:11 02/11/25 06:11 Labs: Microbiology - Last 24 Hours (Table) 02/10/25 03:48 Blood Culture - Preliminary Blood 02/10/25 00:58 Urine Culture - Final Urine,Voided Assessment and Plan (1) UTI (urinary tract infection) Current Visit: Yes Status: Acute Code(s): N39.0 - URINARY TRACT INFECTION, SITE NOT SPECIFIED SNOMED Code(s): 36940338 (2) Leukocytosis Current Visit: No Status: Acute Code(s): D72.829 - ELEVATED WHITE BLOOD CELL COUNT, UNSPECIFIED SNOMED Code(s): 614840777 (3) Pancreatitis Current Visit: No Status: Acute Code(s): K85.90 - ACUTE PANCREATITIS WITHOUT NECROSIS OR INFECTION, UNSP SNOMED Code(s): 36744633 Plan: 1patient presented hospital with abdominal pain in epigastric area with assoc iate nausea vomiting more likely related to acute distention pancreatitis seen on the CT amylase lipase were not significantly elevated. 2patient also have elevated white count suprapubic pain and discomfort positive concerning for possible component of UTI likely from enteric gram-negative pathogen. 3patient white count normalized yesterday no CBC was done today has been complaining of more abdominal pain more like related to her underlying pancreatitis for now continue with the Rocephin and monitor clinical course closely Dictation was produced using [employer] dictation software. please excuse any grammatical, word or spelling errors. Time with Patient: Less than 30
--- NOTE | 2025-02-12 14:37 | P.PN ---
Subjective Progress Note Date: 02/12/25 30-year-old lady with past medical history significant for recurrent pancreatitis, alcohol abuse who presents the ER because abdominal pain. Patient stated that she was all right 1 day back and while eating lunch yesterday, she started experiencing abdominal pain that was located in the center of the abd omen, sharp, severe intensity, radiating down both flanks, no aggravating or relieving factor associated with abdominal pain. Patient was getting nausea and vomiting at the time as well. Denies any fever or chills. There is no complaint of altered bowel movements. Patient any blood in the stools. There is no complaint of chest pain. There is no complaint of shortness of breath. Patient denies any palpitation. There is no complaint of orthopnea or PND. Denies any nausea, vomiting abdominal pain. Patient denies any complaint of dizziness. There is no complaint of headache. Because abdominal pain, patient came to the ER Initial lab work done in the ER showed WBC 13.96, hemoglobin 19.2, platelet count 227, sodium 1 3, potassium 3.9, BUN 9, creatinine 0.77, lactate 2.3, calcium 11, magnesium 1.3, bilirubin 1.7, AST 136, ALT 91, amylase 123 Patient admitted to internal medicine service 02/11. Patient seen and examined. Still complaining abdominal pain. Discussed with her regarding advancing diet, states she wants to try soft diet. 02/12. Patient seen examined. States she feels slightly better. Tolerating diet but appetite has not improved. REVIEW OF SYSTEMS: CONSTITUTIONAL: No fever, no malaise,. CARDIOVASCULAR: No chest pain, no palpitations, no syncope. PULMONARY: No shortness of breath, no cough, GASTROINTESTINAL: Mentioned above NEUROLOGICAL: No headaches, no weakness, PHYSICAL EXAMINATION: GENERAL: The patient is alert and oriented x3, not in any acute distress. Well developed, well nourished. HEENT: Pupils are round and equally reacting to light. EOMI. No scleral icterus. No conjunctival pallor. Normocephalic, atraumatic. No pharyngeal erythema. No thyromegaly. CARDIOVASCULAR: S1 and S2 present. No murmurs, rubs, or gallops. PULMONARY: Chest is clear to auscultation, no wheezing or crackles. ABDOMEN: Soft, nontender, nondistended, normoactive bowel sounds. No palpable organomegaly. MUSCULOSKELETAL: No joint swelling or deformity. EXTREMITIES: No cyanosis, clubbing, or pedal edema. NEUROLOGICAL: Gross neurological examination did not reveal any focal deficits. SKIN: No rashes. Assessment and plan Abdominal pain UTI Lactic acidosis Hypocalcemia Hypomagnesemia Acute transaminitis History of pancreatitis history of alcohol abuse Monitor vital signs Monitor CBC Monitor CMP Continue telemetry monitoring Continue pain management Continue IV Rocephin Continue IV fluids Advance diet to soft ID following Surgery following Labs and medication were reviewed.. Continue same treatment. Continue with symptomatic treatment. Resume home medication. Monitor labs and vitals. DVT and GI prophylaxis. Further recommendations as per clinical course of the patient Dictation was produced using [employer] dictation software. please excuse any grammatical, word or spelling errors. Objective - Vital Signs Vital signs: Vital Signs Temp 98.1 F 02/12/25 08:43 Pulse 78 02/12/25 11:29 Resp 18 02/12/25 11:29 BP 145/102 02/12/25 11:29 Pulse Ox 100 02/12/25 11:29 FiO2 Intake & Output 02/11/25 02/12/25 02/12/25 18:59 06:59 18:59 Intake Total 0 720 Balance 0 720 Weight 84.2 kg Intake: Oral 0 720 Other: Voiding Method Toilet Toilet Toilet # Voids 3 1 1 # Bowel Movements 1 - Labs CBC & Chem 7: 02/11/25 06:11 02/11/25 06:11 Labs: Microbiology - Last 24 Hours (Table) 02/10/25 03:48 Blood Culture - Preliminary Blood 02/10/25 00:58 Urine Culture - Final Urine,Voided
[2025-02-12] MEDS: hydrOXYzine HCL 25 MG TAB PO PRN (16:22)
[2025-02-13 10:37] LABS: HCT 41.7 % (37.2-46.3); HGB 14.7 g/dL (12.0-15.0); MCH 36.8 pg (27.0-32.0); MCHC 35.3 g/dL (32.0-37.0); MCV 104.5 FL (80.0-97.0); NRBC Per 100 WBC 0 X 10*3/uL (0.00-0.01); Platelet Count 163 X 10*3/uL (140-440); RBC 3.99 X 10*6/uL (4.10-5.20); RDW 14.9 % (11.5-14.5); WBC 6.27 X 10*3/uL (4.50-10.00)
[2025-02-13 10:45] LABS: BUN/Creat Ratio 8.29 Ratio (12.00-20.00); Blood Urea Nitrogen 5.8 mg/dL (9.0-27.0); Glucose 83 mg/dL (70-110)
[2025-02-13 10:46] LABS: Anion Gap 11.10 mmol/L (4.00-12.00); Calcium 9.3 mg/dL (8.7-10.3); Carbon Dioxide 26.9 mmol/L (21.6-31.8); Chloride 102 mmol/L (96-109); Potassium 3.6 mmol/L (3.5-5.5); Sodium 140 mmol/L (135-145)
--- NOTE | 2025-02-13 11:03 | P.PN ---
Subjective Progress Note Date: 02/13/25 SURGICAL PROGRESS NOTE CHIEF COMPLAINT: Abdominal pain HISTORY OF PRESENT ILLNESS: Patient reports she is starting to feel better. Her pain is decreasing. She was able to eat solid food with small amount of nausea. No vomiting. Afebrile. WBC 6.27 PHYSICAL EXAM: VITAL SIGNS: Reviewed. GENERAL: Well-developed in no acute distress. ABDOMEN: Soft. Nondistended. Epigastric tenderness to palpation NEUROLOGIC: Alert and oriented. Cranial nerves II through XII grossly intact. ASSESSMENT: 1. Abdominal pain 2. Chronic pancreatitis 3. UTI PLAN: - Continue low-fat diet - Continue IV fluids - Continue pain management - Antibiotics for UTI per ID service - Encourage patient to increase activity level Physician Blow Off Worker note has been reviewed by physician. Signing provider agrees with the documented findings, assessment, and plan of care. Attestation Patient seen and examined at bedside on 02/13/2025. Presented with chief complaint of abdominal pain. She states she is feeling better and her pain is decreasing. She had a meal yesterday with minimal nausea. Continue current medical management. No plan for surgical intervention. Ama De Oliveira DO Objective - Vital Signs Vital signs: Vital Signs Temp 98.2 F 02/13/25 07:20 Pulse 80 02/13/25 07:20 Resp 15 02/13/25 07:20 BP 125/81 02/13/25 07:20 Pulse Ox 100 02/13/25 07:20 FiO2 Intake & Output 02/12/25 02/13/25 02/13/25 18:59 06:59 18:59 Intake Total 720 Balance 720 Intake: Oral 720 Other: Voiding Method Toilet Toilet Toilet # Voids 1 2 - Labs CBC & Chem 7: 02/13/25 06:10 02/13/25 06:10 Labs: Abnormal Lab Results - Last 24 Hours (Table) 02/13/25 02/13/25 Range/Units 06:10 06:10 RBC 3.99 L (4.10-5.20) X 10*6/uL MCV 104.5 H (80.0-97.0) FL MCH 36.8 H (27.0-32.0) pg RDW 14.9 H (11.5-14.5) % BUN 5.8 L (9.0-27.0) mg/dL BUN/Creatinine Ratio 8.29 L (12.00-20.00) Ratio Microbiology - Last 24 Hours (Table) 02/10/25 03:48 Blood Culture - Preliminary Blood
--- NOTE | 2025-02-13 13:18 | P.PN ---
Subjective Progress Note Date: 02/13/25 30-year-old lady with past medical history significant for recurrent pancreatitis, alcohol abuse who presents the ER because abdominal pain. Patient stated that she was all right 1 day back and while eating lunch yesterday, she started experiencing abdominal pain that was located in the center of the abd omen, sharp, severe intensity, radiating down both flanks, no aggravating or relieving factor associated with abdominal pain. Patient was getting nausea and vomiting at the time as well. Denies any fever or chills. There is no complaint of altered bowel movements. Patient any blood in the stools. There is no complaint of chest pain. There is no complaint of shortness of breath. Patient denies any palpitation. There is no complaint of orthopnea or PND. Denies any nausea, vomiting abdominal pain. Patient denies any complaint of dizziness. There is no complaint of headache. Because abdominal pain, patient came to the ER Initial lab work done in the ER showed WBC 13.96, hemoglobin 19.2, platelet count 227, sodium 1 3, potassium 3.9, BUN 9, creatinine 0.77, lactate 2.3, calcium 11, magnesium 1.3, bilirubin 1.7, AST 136, ALT 91, amylase 123 Patient admitted to internal medicine service 02/11. Patient seen and examined. Still complaining abdominal pain. Discussed with her regarding advancing diet, states she wants to try soft diet. 02/12. Patient seen examined. States she feels slightly better. Tolerating diet but appetite has not improved. 02/13. Patient seen and examined. States she is tolerating diet. Denies any nausea or vomiting this morning REVIEW OF SYSTEMS: CONSTITUTIONAL: No fever, no malaise,. CARDIOVASCULAR: No chest pain, no palpitations, no syncope. PULMONARY: No shortness of breath, no cough, GASTROINTESTINAL: Mentioned above NEUROLOGICAL: No headaches, no weakness, PHYSICAL EXAMINATION: GENERAL: The patient is alert and oriented x3, not in any acute distress. Well developed, well nourished. HEENT: Pupils are round and equally reacting to light. EOMI. No scleral icterus. No conjunctival pallor. Normocephalic, atraumatic. No pharyngeal erythema. No thyromegaly. CARDIOVASCULAR: S1 and S2 present. No murmurs, rubs, or gallops. PULMONARY: Chest is clear to auscultation, no wheezing or crackles. ABDOMEN: Soft, nontender, nondistended, normoactive bowel sounds. No palpable organomegaly. MUSCULOSKELETAL: No joint swelling or deformity. EXTREMITIES: No cyanosis, clubbing, or pedal edema. NEUROLOGICAL: Gross neurological examination did not reveal any focal deficits. SKIN: No rashes. Assessment and plan Abdominal pain UTI Lactic acidosis Hypocalcemia Hypomagnesemia Acute transaminitis History of pancreatitis history of alcohol abuse Monitor vital signs Monitor CBC Monitor CMP Continue telemetry monitoring Continue pain management Continue IV Rocephin Continue soft diet ID following Surgery following Labs and medication were reviewed.. Continue same treatment. Continue with symptomatic treatment. Resume home medication. Monitor labs and vitals. DVT and GI prophylaxis. Further recommendations as per clinical course of the patient Dictation was produced using [employer] dictation software. please excuse any gramm atical, word or spelling errors. Objective - Vital Signs Vital signs: Vital Signs Temp 98.2 F 02/13/25 07:20 Pulse 80 02/13/25 07:20 Resp 15 02/13/25 07:20 BP 125/81 02/13/25 07:20 Pulse Ox 100 02/13/25 07:20 FiO2 Intake & Output 02/12/25 02/13/25 02/13/25 18:59 06:59 18:59 Intake Total 720 Balance 720 Intake: Oral 720 Other: Voiding Method Toilet Toilet # Voids 1 2 - Labs CBC & Chem 7: 02/13/25 06:10 02/13/25 06:10 Labs: Microbiology - Last 24 Hours (Table) 02/10/25 03:48 Blood Culture - Preliminary Blood
[2025-02-13] MEDS: FLUCONAZOLE 100 MG TAB PO ONE (16:22)
[2025-02-13 19:48] VITALS: RESP 16
[2025-02-14 07:24] VITALS: BP 122/80; PULSE 56; TEMP 97.5
--- NOTE | 2025-02-14 08:36 | P.PN ---
Subjective Progress Note Date: 02/13/25 Principal diagnosis: Reason for follow-up is leukocytosis/UTI Patient is a 30-year-old female with a past medical history difficult for hypertension hidradenitis suppurativa kidney stones and pancreatitis current everyday smoker presenting to the hospital for evaluation of abdominal pain that started the day of presentation to the hospital CT suggestive of pancreatitis she also have a positive UA some suprapubic tenderness concerning for symptomatic UTI. On today's evaluation that is 02/13/2025,the patient denies any fever or any chills, patient is breathing comfortably on room air, the patient denies chest pain shortness of breath and no significant cough, patient mention slightly decreasing abdominal pain, no nausea vomiting or diarrhea. Patient white count 6.27, creatinine 0.7 culture has been negative so far Objective - Vital Signs Vital signs: Vital Signs Temp 97.8 F 02/13/25 19:15 Pulse 65 02/13/25 19:15 Resp 16 02/13/25 19:15 BP 120/80 02/13/25 19:15 Pulse Ox 100 02/13/25 19:15 FiO2 Intake & Output 02/13/25 02/13/25 02/14/25 06:59 18:59 06:59 Other: Voiding Method Toilet Toilet # Voids 2 2 - Exam GENERAL DESCRIPTION: Middle-age female lying in bed in no distress RESPIRATORY SYSTEM: Unlabored breathing , decreased breath sounds at bases HEART: S1 S2 regular rate and rhythm , ABDOMEN: Soft , no tenderness EXTREMITIES: No edema feet - Labs CBC & Chem 7: 02/13/25 06:10 02/13/25 06:10 Labs: Abnormal Lab Results - Last 24 Hours (Table) 02/13/25 02/13/25 Range/Units 06:10 06:10 RBC 3.99 L (4.10-5.20) X 10*6/uL MCV 104.5 H (80.0-97.0) FL MCH 36.8 H (27.0-32.0) pg RDW 14.9 H (11.5-14.5) % BUN 5.8 L (9.0-27.0) mg/dL BUN/Creatinine Ratio 8.29 L (12.00-20.00) Ratio Microbiology - Last 24 Hours (Table) 02/10/25 03:48 Blood Culture - Preliminary Blood Assessment and Plan (1) UTI (urinary tract infection) Current Visit: Yes Status: Acute Code(s): N39.0 - URINARY TRACT INFECTION, SITE NOT SPECIFIED SNOMED Code(s): 87297184 (2) Leukocytosis Current Visit: No Status: Acute Code(s): D72.829 - ELEVATED WHITE BLOOD CELL COUNT, UNSPECIFIED SNOMED Code(s): 032403484 (3) Pancreatitis Current Visit: No Status: Acute Code(s): K85.90 - ACUTE PANCREATITIS WITHOUT NECROSIS OR INFECTION, UNSP SNOMED Code(s): 06604907 Plan: 1patient presented hospital with abdominal pain in epigastric area with associate nausea vomiting more likely related to acute distention pancreatitis seen on the CT amylase lipase were not significantly elevated. 2patient also have elevated white count suprapubic pain and discomfort positive concerning for possible component of UTI likely from enteric gram-negative pathogen. 3patient is afebrile and white count normalized, culture remains to be negative she is currently on empiric Rocephin to continue and monitor clinical course closely Dictation was produced using [employer] dictation software. please excuse any grammatical, word or spelling errors. Time with Patient: Less than 30
--- NOTE | 2025-02-14 10:11 | P.PN ---
Subjective Progress Note Date: 02/14/25 SURGICAL PROGRESS NOTE CHIEF COMPLAINT: Abdominal pain HISTORY OF PRESENT ILLNESS: Patient continues to have some epigastric abdominal pain. She does report the pain is getting better. She is going slow with the diet. She did report some dry heaves yesterday. She states that she does get up and walk around in her room. Afebrile. PHYSICAL EXAM: VITAL SIGNS: Reviewed. GENERAL: Well-developed in no acute distress. ABDOMEN: Soft. Nondistended. Epigastric tenderness to palpation NEUROLOGIC: Alert and oriented. Cranial nerves II through XII grossly intact. ASSESSMENT: 1. Abdominal pain 2. Chronic pancreatitis 3. UTI PLAN: - Continue low-fat diet - Continue pain management - Antibiotics for UTI per ID service - Encourage patient to increase activity level Physician Yacht Rigger note has been reviewed by physician. Signing provider agrees with the documented findings, assessment, and plan of care. Attestation Patient seen and examined at bedside. States she continues to do well. States she still occasionally has some nausea, however is much improved. No plan for surgical intervention. Continue medical care. Ama De Oliveira, Objective - Vital Signs Vital signs: Vital Signs Temp 97.5 F L 02/14/25 06:59 Pulse 56 L 02/14/25 06:59 Resp 16 02/14/25 06:59 BP 122/80 02/14/25 06:59 Pulse Ox 100 02/14/25 06:59 FiO2 Intake & Output 02/13/25 02/14/25 02/14/25 18:59 06:59 18:59 Other: Voiding Method Toilet Toilet # Voids 2 3 - Labs CBC & Chem 7: 02/13/25 06:10 02/13/25 06:10 Labs: Abnormal Lab Results - Last 24 Hours (Table) 02/13/25 02/13/25 Range/Units 06:10 06:10 RBC 3.99 L (4.10-5.20) X 10*6/uL MCV 104.5 H (80.0-97.0) FL MCH 36.8 H (27.0-32.0) pg RDW 14.9 H (11.5-14.5) % BUN 5.8 L (9.0-27.0) mg/dL BUN/Creatinine Ratio 8.29 L (12.00-20.00) Ratio Microbiology - Last 24 Hours (Table) 02/10/25 03:48 Blood Culture - Preliminary Blood
[2025-02-14 11:34] VITALS: BMI 29.9
--- NOTE | 2025-02-14 12:27 | P.DS ---
Providers Date of admission: 02/10/25 04:28 Expected date of discharge: 02/14/25 Attending physician: Felice Albert Consults: 02/10/25 13:15 Consult Physician Routine Consulting Provider: Isra Chicas Consult Reason/Comments: Abdominal pain Do you want consulting provider notified?: Yes 02/10/25 13:19 Consult Physician Routine Consulting Provider: Walt Arreola Consult Reason/Comments: UTI Do you want consulting provider notified?: Yes Primary care physician: Tiara Pollock [facility] Course: DiscAbdominal pain UTI Lactic acidosis Hypocalcemia Hypomagnesemia Acute transaminitis History of pancreatitis history of alcohol abuse harge diagnoses; Hospital course; 30-year-old lady with past medical history significant for recurrent pancreatitis, alcohol abuse who presents the ER because abdominal pain. Patient stated that she was all right 1 day back and while eating lunch yesterday, she started experiencing abdominal pain that was located in the center of the ab domen, sharp, severe intensity, radiating down both flanks, no aggravating or relieving factor associated with abdominal pain. Patient was getting nausea and vomiting at the time as well. Denies any fever or chills. There is no complaint of altered bowel movements. Patient any blood in the stools. There is no complaint of chest pain. There is no complaint of shortness of breath. Patient denies any palpitation. There is no complaint of orthopnea or PND. Denies any nausea, vomiting abdominal pain. Patient denies any complaint of dizziness. There is no complaint of headache. Because abdominal pain, patient came to the ER Initial lab work done in the ER showed WBC 13.96, hemoglobin 19.2, platelet count 227, sodium 1 3, potassium 3.9, BUN 9, creatinine 0.77, lactate 2.3, calcium 11, magnesium 1.3, bilirubin 1.7, AST 136, ALT 91, amylase 123 Patient admitted to internal medicine service 02/11. Patient seen and examined. Still complaining abdominal pain. Discussed with her regarding advancing diet, states she wants to try soft diet. 02/12. Patient seen examined. States she feels slightly better. Tolerating diet but appetite has not improved. 02/13. Patient seen and examined. States she is tolerating diet. Denies any nausea or vomiting this morning 02/14. Patient seen and examined abdominal pain has improved. Tolerating diet. Patient has completed his course of antibiotics. Being discharged in stable condition PHYSICAL EXAMINATION: GENERAL: The patient is alert and oriented x3, not in any acute distress. Well developed, well nourished. HEENT: Pupils are round and equally reacting to light. EOMI. No scleral icterus. No conjunctival pallor. Normocephalic, atraumatic. No pharyngeal erythema. No thyromegaly. CARDIOVASCULAR: S1 and S2 present. No murmurs, rubs, or gallops. PULMONARY: Chest is clear to auscultation, no wheezing or crackles. ABDOMEN: Soft, nontender, nondistended, normoactive bowel sounds. No palpable organomegaly. MUSCULOSKELETAL: No joint swelling or deformity. EXTREMITIES: No cyanosis, clubbing, or pedal edema. NEUROLOGICAL: Gross neurological examination did not reveal any focal deficits. SKIN: No rashes. Dictation was produced using [employer] dictation software. please excuse any grammatical, word or spelling errors. Patient Condition at Discharge: Fair Plan - Discharge Summary New Discharge Prescriptions: New Pantoprazole Sodium [Protonix] 40 mg PO DAILY 30 Days #30 tab Continue Ondansetron Odt [Zofran ODT] 4 mg PO Q8HR PRN #10 tab PRN Reason: Nausea Acetaminophen Tab [Tylenol] 650 mg PO Q6HR PRN tab PRN Reason: Mild Pain Or Fever > 100.5 amLODIPine [Norvasc] 10 mg PO DAILY Ibuprofen [Motrin] 800 mg PO Q6H PRN PRN Reason: Pain Or Fever > 100.5 hydroCHLOROthiazide [Hydrodiuril] 25 mg PO DAILY 30 Days #30 tab Benzoyl Peroxide Cleanser 10% 1 applic TOPICAL DAILY PRN PRN Reason: when showering Folic Acid 1 mg PO DAILY #30 tab Discharge Medication List hydroCHLOROthiazide [Hydrodiuril] 25 mg PO DAILY 30 Days #30 tab 11/03/24 [Rx] Ondansetron Odt [Zofran ODT] 4 mg PO Q8HR PRN #10 tab 11/12/24 [Rx] Benzoyl Peroxide Cleanser 10% 1 applic TOPICAL DAILY PRN 11/14/24 [History] Acetaminophen Tab [Tylenol] 650 mg PO Q6HR PRN tab 11/26/24 [Rx] Folic Acid 1 mg PO DAILY #30 tab 01/17/25 [Rx] Ibuprofen [Motrin] 800 mg PO Q6H PRN 02/10/25 [History] amLODIPine [Norvasc] 10 mg PO DAILY 02/10/25 [History] Pantoprazole Sodium [Protonix] 40 mg PO DAILY 30 Days #30 tab 02/14/25 [Rx] Follow up Appointment(s)/Referral(s): Tiara Pollock MD [Primary Care Provider] - 1-2 days Discharge Disposition: HOME SELF-CARE
--- NOTE | 2025-02-14 14:11 | P.PN ---
Subjective Progress Note Date: 02/14/25 Principal diagnosis: Reason for follow-up is leukocytosis/UTI Patient is a 30-year-old female with a past medical history difficult for hypertension hidradenitis suppurativa kidney stones and pancreatitis current everyday smoker presenting to the hospital for evaluation of abdominal pain that started the day of presentation to the hospital CT suggestive of pancreatitis she also have a positive UA some suprapubic tenderness concerning for symptomatic UTI. On today's evaluation that is 02/14/2025,the patient remains to be afebrile, patient is on room air not requiring supplemental oxygen and mentioned breathing comfortably with no chest pain or cough.Patient denies having any nausea or vomiting, abdominal pain has decreased in intensity no diarrhea. Audiogram has been obtained today culture has been negative Objective - Vital Signs Vital signs: Vital Signs Temp 97.5 F L 02/14/25 06:59 Pulse 56 L 02/14/25 06:59 Resp 16 02/14/25 06:59 BP 122/80 02/14/25 06:59 Pulse Ox 100 02/14/25 06:59 FiO2 Intake & Output 02/13/25 02/14/25 02/14/25 18:59 06:59 18:59 Weight 84.2 kg Other: Voiding Method Toilet Toilet # Voids 2 3 - Exam GENERAL DESCRIPTION: Middle-age female lying in bed in no distress RESPIRATORY SYSTEM: Unlabored breathing , decreased breath sounds at bases HEART: S1 S2 regular rate and rhythm , ABDOMEN: Soft , no tenderness EXTREMITIES: No edema feet - Labs CBC & Chem 7: 02/13/25 06:10 02/13/25 06:10 Labs: Microbiology - Last 24 Hours (Table) 02/10/25 03:48 Blood Culture - Preliminary Blood Assessment and Plan (1) UTI (urinary tract infection) Status: Acute Code(s): N39.0 - URINARY TRACT INFECTION, SITE NOT SPECIFIED SNOMED Code(s): 36402176 (2) Leukocytosis Status: Acute Code(s): D72.829 - ELEVATED WHITE BLOOD CELL COUNT, UNSPECIFIED SNOMED Code(s): 824192655 (3) Pancreatitis Status: Acute Code(s): K85.90 - ACUTE PANCREATITIS WITHOUT NECROSIS OR INFECTION, UNSP SNOMED Code(s): 69265528 Plan: 1patient presented hospital with abdominal pain in epigastric area with associate nausea vomiting more likely related to acute distention pancreatitis seen on the CT amylase lipase were not significantly elevated. 2patient also have elevated white count suprapubic pain and discomfort positive concerning for possible component of UTI likely from enteric gram-negative pathogen. 3patient is afebrile and white count normalized, culture remains to be negative no need for antibiotics on discharge Dictation was produced using [employer] dictation software. please excuse any grammatical, word or spelling errors. Time with Patient: Less than 30
== END 2025-02-14 14:04 | disposition home or self-care (01) | DRG 463 ==
LOC: EC 00:21 → 5NMEDONC 04:28 → 3SCARD 11:02 → 4SSUR 02-12 18:22
PROVIDERS: ADMIT Hospitalist; ATTEND Hospitalist
DX: N39.0 Urinary tract infection, site not specified (principal); N20.0 Calculus of kidney; Z86.19 Personal history of other infectious and parasitic diseases; E11.9 Type 2 diabetes mellitus without complications; E83.42 Hypomagnesemia; R74.01 Elevation of levels of liver transaminase levels; F10.11 Alcohol abuse, in remission; E83.51 Hypocalcemia; E87.20 Acidosis, unspecified; F17.200 Nicotine dependence, unspecified, uncomplicated; I10 Essential (primary) hypertension; K76.0 Fatty (change of) liver, not elsewhere classified; Z79.899 Other long term (current) drug therapy; Z87.442 Personal history of urinary calculi; Z86.14 Personal history of Methicillin resistant Staphylococcus aureus infection
CPT/HCPCS: 36415; 74177; 76705; 80048; 80053; 81001; 81025; 82150; 83605; 83690; 83735; 84100; 85025; 85027; 87040; 87086; 96361; 96365; 96366; 96367; 96375; 96376; 99285